=== PATIENT | female | born 1990 | race Caucasian/White ===

== ENCOUNTER 2016-09-20 01:12 | Emergency (ER) | payer OTHER ==
[2016-09-20 01:20] VITALS: BP 97/64; PULSE 71; RESP 18; TEMP 97.7
[2016-09-20] MEDS ORDERED: Acetaminophen-Codeine 300-30mg TAB PO STA (02:10)
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
[2016-09-20] MEDS ORDERED: HYDROcodone/APAP 5-325MG 1 EACH TAB PO STA (02:53)
== END 2016-09-20 03:01 | disposition home or self-care (01) ==
LOC: EC 01:12
DX: S62.102A Fracture of unspecified carpal bone, left wrist, initial encounter for closed fracture (principal); F17.200 Nicotine dependence, unspecified, uncomplicated; Z88.0 Allergy status to penicillin; Z88.8 Allergy status to other drugs, medicaments and biological substances; Z91.048 Other nonmedicinal substance allergy status; Y04.0XXA Assault by unarmed brawl or fight, initial encounter; Y92.009 Unspecified place in unspecified non-institutional (private) residence as the place of occurrence of the external cause
CPT/HCPCS: 99283

== ENCOUNTER 2016-10-14 22:10 | Emergency (ER) | payer OTHER ==
[2016-10-14 22:22] VITALS: TEMP 96.9
[2016-10-14] MEDS ORDERED: ALBUTEROL NEBULIZED 2.5 MG/3 ML INHALATION STA (22:47)
[2016-10-14] MEDS ORDERED: predniSONE 20 MG TAB PO STA (22:47)
[2016-10-14 23:41] VITALS: RESP 18
--- NOTE | 2016-10-15 00:03 | ED ---
Allergic Reaction HPI - General Chief complaint: Allergic Reaction Stated complaint: Allergic Reaction-Beesting Time Seen by Provider: 10/14/16 22:17 Source: EMS Mode of arrival: EMS - History of Present Illness Initial Comments: This patient is a 26-year-old woman who is brought to the emergency department by EMS after she was stung by a bee to the second toe. The patient states she has had previous reactions to bee stings. The patient states that after the sting she developed a feeling of chest tightness and some wheezing. EMS did give albuterol and Benadryl and the patient is feeling a bit better. Patient denies rash. She does state that her last tetanus shot is less than 10 years ago. MD Complaint: other Onset/Timin -: hour(s) Exposure: insect bite Severity: moderate Treatment Prior to Arrival: benadryl, bronchodilator - Related Data Previous Rx's Medication Instructions Recorded Famotidine [Pepcid] 20 mg PO DAILY #14 tablet 10/15/16 predniSONE 60 mg PO DAILY #30 tab 10/15/16 Allergies Allergy/AdvReac Type Severity Reaction Status Date / Time asparaginase Allergy Rash/Hives Verified 10/14/16 22:23 bee venom protein (honey bee) Allergy Unknown Verified 10/14/16 22:23 Coconut Allergy Anaphylaxis Verified 10/14/16 22:23 meperidine HCl [From Demerol] Allergy Anaphylaxis Verified 10/14/16 22:23 Penicillins Allergy Swelling Verified 10/14/16 22:23 Review of Systems ROS Statement: Those systems with pertinent positive or pertinent negative responses have been documented in the HPI. ROS Other: All systems not noted in ROS Statement are negative. Constitutional: Denies: fever, chills ENT: Denies: throat pain, congestion Respiratory: Reports: cough, dyspnea, wheezes Cardiovascular: Denies: chest pain, edema, syncope Gastrointestinal: Denies: abdominal pain, vomiting Skin: Denies: rash Neurological: Denies: headache, weakness, numbness, paresthesias Past Medical History Past Medical History: Cancer, Deep Vein Thrombosis (DVT), Seizure Disorder Additional Past Medical History / Comment(s): Leukemia, bone marrow biopsies History of Any Multi-Drug Resistant Organisms: None Reported Past Surgical History: No Surgical Hx Reported Additional Past Surgical History / Comment(s): port placement x2 2006, 2008 Past Anesthesia/Blood Transfusion Reactions: No Reported Reaction Past Psychological History: No Psychological Hx Reported Smoking Status: Current every day smoker Past Alcohol Use History: None Reported Past Drug Use History: None Reported - Past Family History Mother Family Medical History: No Reported History General Exam General appearance: alert, in no apparent distress Head exam: Present: atraumatic, normocephalic Eye exam: Present: normal appearance. Absent: scleral icterus, conjunctival injection ENT exam: Present: normal oropharynx, mucous membranes moist Respiratory exam: Present: wheezes. Absent: respiratory distress, rales, rhonchi, stridor, accessory muscle use, decreased breath sounds, prolonged expiratory Cardiovascular Exam: Present: regular rate, normal rhythm, normal heart sounds. Absent: systolic murmur, diastolic murmur, rubs, gallop GI/Abdominal exam: Present: soft. Absent: tenderness, guarding, rebound Extremities exam: Absent: pedal edema Neurological exam: Present: alert Skin exam: Present: warm, dry, intact, normal color, other (Small puncture wound to the second toe with some surrounding erythema. There is no retained foreign body.). Absent: rash Course Vital Signs 10/14/16 10/14/16 10/14/16 22:14 22:21 23:05 Temperature 96.9 F L Pulse Rate 90 84 Respiratory 20 Rate Blood Pressure 99/57 O2 Sat by Pulse 95 Oximetry 10/14/16 10/14/16 10/15/16 23:10 23:40 01:00 Temperature Pulse Rate 88 78 76 Respiratory 18 18 Rate Blood Pressure 99/58 95/54 O2 Sat by Pulse 98 98 Oximetry 10/15/16 01:40 Temperature 96.9 F L Pulse Rate 76 Respiratory 18 Rate Blood Pressure 95/54 O2 Sat by Pulse 98 Oximetry Disposition Clinical Impression: Bee sting Disposition: HOME SELF-CARE Condition: Good Instructions: Insect Bite or Sting (ED) Prescriptions: Famotidine [Pepcid] 20 mg PO DAILY #14 tablet predniSONE 60 mg PO DAILY #30 tab Referrals: Isabella Garrett III, MD [Primary Care Provider] - 1-2 days
[2016-10-15 01:08] VITALS: BP 95/54; PULSE 76
== END 2016-10-15 01:20 | disposition home or self-care (01) ==
LOC: EC 22:10
DX: T63.441A Toxic effect of venom of bees, accidental (unintentional), initial encounter (principal); R06.00 Dyspnea, unspecified; R07.9 Chest pain, unspecified; F17.200 Nicotine dependence, unspecified, uncomplicated; Z85.6 Personal history of leukemia; Z86.718 Personal history of other venous thrombosis and embolism; Z88.0 Allergy status to penicillin; Z88.5 Allergy status to narcotic agent; Z88.8 Allergy status to other drugs, medicaments and biological substances; Z91.018 Allergy to other foods; Z91.030 Bee allergy status
CPT/HCPCS: 94640; 99285; J7512

== ENCOUNTER 2017-02-01 13:56 | Emergency (ER) | payer OTHER ==
[2017-02-01] MEDS ORDERED: IPRATROPIUM-ALBUTEROL 3 ML NEB INHALATION STA (15:58)
--- NOTE | 2017-02-01 16:05 | ED ---
General Adult HPI - General Chief complaint: Upper Respiratory Infection Stated complaint: vomiting/SOB Time Seen by Provider: 02/01/17 15:47 Source: patient, RN notes reviewed, old records reviewed Mode of arrival: ambulatory Limitations: no limitations - History of Present Illness Initial comments: Chief complaint and history of present illness is a 18-year-old female reportedly had a leave work last night because of coughing and not feeling well. - Related Data Previous Rx's Medication Instructions Recorded Albuterol Inhaler [Ventolin Hfa 2 puff INHALATION Q4HR PRN #1 02/01/17 Inhaler] inhaler Azithromycin [Zithromax Z-pack] 250 mg PO DIRECTED #6 tab 02/01/17 Ondansetron Odt [Zofran ODT] 4 mg PO Q8HR PRN #5 tab 02/01/17 Allergies Allergy/AdvReac Type Severity Reaction Status Date / Time asparaginase Allergy Rash/Hives Verified 02/01/17 16:17 bee venom protein (honey bee) Allergy Unknown Verified 02/01/17 14:58 Coconut Allergy Anaphylaxis Verified 02/01/17 14:58 meperidine HCl [From Demerol] Allergy Anaphylaxis Verified 02/01/17 16:17 Penicillins Allergy Swelling Verified 02/01/17 16:17 Review of Systems ROS Statement: Those systems with pertinent positive or pertinent negative responses have been documented in the HPI. Review of systems. Patient denies any headache or visual acuity changes no chest pain she does a productive sounding cough and wheezing. No GI/ problems. The patient is having some easy bruising. Denies fever. All systems are reviewed. Past medical problems asthma, leukemia which was treated when she was 1 years old and 15 years old. Also history of DVT she is not on blood thinners does time. She has a history of seizure disorder caused by stress. She is not on any medications for that either she reports last seizure she had a 6 years ago. Surgeries she had 2 reports for chemotherapy. Bone biopsies. Family history grandfather had hep C and of liver cancer. Patient has ALLERGIES to aspirin Dary Russell, B Dayana, coconut, Demerol and penicillin. Patient's smoker strongly encouraged to stop denies alcohol use ROS Other: All systems not noted in ROS Statement are negative. Past Medical History Past Medical History: Asthma, Cancer, Deep Vein Thrombosis (DVT), Seizure Disorder Additional Past Medical History / Comment(s): Leukemia, bone marrow biopsies History of Any Multi-Drug Resistant Organisms: None Reported Past Surgical History: No Surgical Hx Reported Additional Past Surgical History / Comment(s): port placement x2 2006, 2008 Past Anesthesia/Blood Transfusion Reactions: No Reported Reaction Past Psychological History: No Psychological Hx Reported Smoking Status: Current every day smoker Past Alcohol Use History: None Reported Past Drug Use History: None Reported - Past Family History Mother Family Medical History: No Reported History General Exam - General Exam Comments Initial Comments: General: The patient is awake and alert, came because of a productive cough. Wheezing. Vital signs temperatures 98.9, pulse 60 ,respiratory rate 20, pulse ox 99 blood pressure 103/55 Eye: Pupils are equal, round and reactive to light, extra-ocular movements are intact ; there is normal conjunctiva bilaterally. No signs of icterus. Left eye shows some exophthalmos which patient reports is normal for her. Ears, nose, mouth and throat: There are moist mucous membranes and no oral lesions. Neck: The neck is supple, there is no tenderness on anterior cervical lymphadenopathy. Cardiovascular: There is a regular rate and rhythm. No murmur, rub or gallop is appreciated. Respiratory: Partial breath sounds with expiratory wheeze. Gastrointestinal: No abdominal pain, no nausea no vomiting no diarrhea Back: No back pain. Musculoskeletal: Normal ROM, no tenderness, There is no pedal edema. There is no calf tenderness or swelling. Sensation intact. Neurological: CN II-XII intact, There are no obvious motor or sensory deficits. Coordination appears grossly intact. Speech is normal. Skin: She does have some bruising. Patient states she's bruising more than normal. She is requesting a CBC to make sure her leukemia has not returned. Limitations: no limitations Course Vital Signs 02/01/17 02/01/17 02/01/17 14:56 16:38 16:46 Temperature 98.9 F Pulse Rate 60 68 56 L Respiratory 20 20 Rate Blood Pressure 103/55 101/55 O2 Sat by Pulse 99 100 Oximetry Medical Decision Making - Medical Decision Making Medical decision making; The patient's white count 7.2 hemoglobin 12 hematocrit 36 platelets 243. Normal differential. X-ray the chest is done AP and lateral view and reviewed by radiologist his impression is bilateral vague upper lung field opacities are noted which are new since the previous study. This could be pneumonia or atelectasis. There is no pneumothorax or pleural effusion. Cardiac silhouette is within normal limits. Impression vague bilateral upper lung field opacities are noted which are felt to be due to atelectasis or pneumonia. As read by Dr. Benny Phipps responded to the DuoNeb. Feeling slightly better. We discussed a Z-Bj for possible pneumonia, Zofran for nausea and a refill of her albuterol inhaler. Patient will be off work and to return tomorrow night if she feels up to it otherwise follow-up with family physician. - Lab Data Result diagrams: 02/01/17 16:30 Lab Results 02/01/17 Range/Units 16:30 WBC 7.2 (3.8-10.6) k/uL RBC 4.07 (3.80-5.40) m/uL Hgb 12.3 (11.4-16.0) gm/dL Hct 36.5 (34.0-46.0) % MCV 89.6 (80.0-100.0) fL MCH 30.3 (25.0-35.0) pg MCHC 33.8 (31.0-37.0) g/dL RDW 14.3 (11.5-15.5) % Plt Count 243 (150-450) k/uL Neutrophils % 67 % Lymphocytes % 25 % Monocytes % 4 % Eosinophils % 2 % Basophils % 1 % Neutrophils # 4.8 (1.3-7.7) k/uL Lymphocytes # 1.8 (1.0-4.8) k/uL Monocytes # 0.3 (0-1.0) k/uL Eosinophils # 0.1 (0-0.7) k/uL Basophils # 0.1 (0-0.2) k/uL Disposition Clinical Impression: Pneumonia Disposition: HOME SELF-CARE Condition: Stable Instructions: Community Acquired Pneumonia (ED) Additional Instructions: Increase fluids. Take Z-Bj until completed. Follow-up with family physician or return emergency room not feeling well. Use Zofran for nausea and albuterol inhaler as directed. Prescriptions: Albuterol Inhaler [Ventolin Hfa Inhaler] 2 puff INHALATION Q4HR PRN #1 inhaler PRN Reason: Shortness Of Breath Azithromycin [Zithromax Z-pack] 250 mg PO DIRECTED #6 tab Ondansetron Odt [Zofran ODT] 4 mg PO Q8HR PRN #5 tab PRN Reason: Nausea Referrals: Isabella Garrett III, MD [Primary Care Provider] - 1-2 days Time of Disposition: 16:59
--- NOTE | 2017-02-01 16:23 | XR ---
EXAMINATION TYPE: XR chest 2V DATE OF EXAM: 02/01/2017 COMPARISON: October 11, 2014 HISTORY: Cough TECHNIQUE: Frontal and lateral views of the chest are obtained. FINDINGS: Bilateral vague upper lung field opacities are noted which are new since the previous stud y. This could be pneumonia or atelectasis. There is no pneumothorax or pleural effusion and the cardi ac silhouette is within normal limits. IMPRESSION: Vague bilateral upper lung field opacities are noted which are felt to be due to atelect asis or pneumonia.
[2017-02-01 16:46] LABS: Basophils # (A) 0.1 k/uL (0-0.2); Basophils % (A) 1 %; CH 29.7; CHCM 33.3; Eosinophils # (A) 0.1 k/uL (0-0.7); Eosinophils % (A) 2 %; HCT 36.5 % (34.0-46.0); HDW 2.61; HGB 12.3 gm/dL (11.4-16.0); Luc # (Auto) 0.13; Luc % (Auto) 2; Lymphocytes # (A) 1.8 k/uL (1.0-4.8); Lymphocytes % (A) 25 %; MCH 30.3 pg (25.0-35.0); MCHC 33.8 g/dL (31.0-37.0); MCV 89.6 fL (80.0-100.0); Monocytes # (A) 0.3 k/uL (0-1.0); Monocytes % (A) 4 %; Neutrophils # (A) 4.8 k/uL (1.3-7.7); Neutrophils % (A) 67 %; RBC 4.07 m/uL (3.80-5.40); RDW 14.3 % (11.5-15.5); WBC 7.2 k/uL (3.8-10.6); WBC (Perox) 7.13
[2017-02-01 17:10] VITALS: BP 108/59; PULSE 54; RESP 16
[2017-02-01 17:13] VITALS: TEMP 97.9
== END 2017-02-01 17:13 | disposition home or self-care (01) ==
LOC: EC 13:56
DX: J18.9 Pneumonia, unspecified organism (principal); F17.200 Nicotine dependence, unspecified, uncomplicated; Z85.9 Personal history of malignant neoplasm, unspecified; Z91.018 Allergy to other foods; Z91.030 Bee allergy status; Z88.5 Allergy status to narcotic agent; Z88.0 Allergy status to penicillin; Z88.8 Allergy status to other drugs, medicaments and biological substances
CPT/HCPCS: 36415; 71020; 85025; 94640; 99284

== ENCOUNTER 2017-02-18 14:46 | Emergency (ER) | payer OTHER ==
[2017-02-18 14:56] VITALS: BP 107/59; RESP 20; TEMP 98.4
[2017-02-18] MEDS ORDERED: ALBUTEROL NEBULIZED 2.5 MG/3 ML INHALATION STA (15:26)
[2017-02-18] MEDS ORDERED: IPRATROPIUM-ALBUTEROL 3 ML NEB INHALATION STA (15:26)
--- NOTE | 2017-02-18 15:35 | ED ---
General Adult HPI - General Chief complaint: Recheck/Abnormal Lab/Rx Stated complaint: SOB Time Seen by Provider: 02/18/17 15:04 Source: patient Mode of arrival: ambulatory Limitations: no limitations - History of Present Illness Initial comments: Patient is a 26-year-old female with a history of asthma who presents with chief complaint cough and shortness of breath. Patient states that she was seen at [facility] last Thursday and diagnosed with pneumonia. At that time she was prescribed steroids and amoxicillin which she did not fill until yesterday. Patient states that she was seen again on Thursday his symptoms were not improving at that time she had an x-ray done which did not show any focal consolidations. 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 States that she has a rescue inhaler that she uses occasionally. Patient denies any sick contacts, she cannot identify an inciting incident. She does not identify any aggravating or alleviating factors. She admits to sputum production which she characterizes as green. - Related Data Home Medications Medication Instructions Recorded Confirmed Azithromycin [Zithromax Z-pack] See Taper PO DIRECTED 02/18/17 02/18/17 predniSONE See Taper PO DIRECTED 02/18/17 02/18/17 Allergies Allergy/AdvReac Type Severity Reaction Status Date / Time asparaginase Allergy Rash/Hives Verified 02/18/17 15:34 bee venom protein (honey bee) Allergy Unknown Verified 02/18/17 15:34 Coconut Allergy Anaphylaxis Verified 02/18/17 15:34 meperidine HCl [From Demerol] Allergy Anaphylaxis Verified 02/18/17 15:34 Penicillins Allergy Swelling Verified 02/18/17 15:34 Review of Systems ROS Statement: Those systems with pertinent positive or pertinent negative responses have been documented in the HPI. ROS Other: All systems not noted in ROS Statement are negative. Constitutional: Reports: fever Eyes: Denies: vision change ENT: Reports: congestion. Denies: throat pain Respiratory: Reports: cough, wheezes Cardiovascular: Denies: chest pain Endocrine: Denies: fatigue Gastrointestinal: Denies: abdominal pain, nausea, vomiting Genitourinary: Denies: dysuria Musculoskeletal: Denies: back pain Skin: Denies: rash, lesions Neurological: Denies: headache Past Medical History Past Medical History: Asthma, Cancer, Deep Vein Thrombosis (DVT), Seizure Disorder Additional Past Medical History / Comment(s): Leukemia, bone marrow biopsies History of Any Multi-Drug Resistant Organisms: None Reported Past Surgical History: No Surgical Hx Reported Additional Past Surgical History / Comment(s): port placement x2 2006, 2008 Past Anesthesia/Blood Transfusion Reactions: No Reported Reaction Past Psychological History: No Psychological Hx Reported Smoking Status: Current every day smoker Past Alcohol Use History: None Reported Past Drug Use History: None Reported - Past Family History Mother Family Medical History: No Reported History General Exam Limitations: no limitations General appearance: alert, in no apparent distress Head exam: Present: atraumatic, normocephalic Eye exam: Present: normal appearance ENT exam: Present: mucous membranes moist Neck exam: Present: normal inspection Respiratory exam: Present: wheezes Cardiovascular Exam: Present: regular rate, normal rhythm, normal heart sounds GI/Abdominal exam: Present: soft. Absent: distended, tenderness, guarding Rectal exam: Present: deferred Neurological exam: Present: alert, oriented X3 Psychiatric exam: Present: normal affect, normal mood Skin exam: Present: warm, dry, intact Course Vital Signs 02/18/17 02/18/17 02/18/17 14:53 15:37 15:40 Temperature 98.4 F Pulse Rate 80 78 Respiratory 20 20 Rate Blood Pressure 107/59 O2 Sat by Pulse 98 Oximetry 02/18/17 16:01 Temperature Pulse Rate 82 Respiratory Rate Blood Pressure O2 Sat by Pulse Oximetry Medical Decision Making - Medical Decision Making Patient is a 26-year-old female with a history of asthma who presents with a chief complaint of cough and shortness of breath. He has been seen twice in the last week for the same issue. One week ago she was prescribed antibiotics but did not fill them until 2 days ago. Patient continues to smoke. On initial evaluation, vital signs are stable, patient is in no acute distress. Patient will get 2 breathing treatments in the emergency department, she is currently on antibiotics and steroids. 4:07 PM She was given breathing treatments in the emergency department. Reevaluation, patient states that she is breathing much easier. Reexamination of the lungs shows improved air entry and exit. There are some minor wheezes present. Patient was instructed to continue taking antibiotics, and steroids until completed. Patient was offered a repeat x-ray however she declined at this time. Patient relates to be discharged because she is feeling better and states that she only gets 2 hours of visitation with her children every week and she is already relates. At this time, patient is deemed stable for discharge. She is instructed to follow up with primary care, or return to the emergency department if her symptoms worsen or change in anyway. Disposition Clinical Impression: Asthmatic bronchitis, Encounter for smoking cessation counseling Disposition: HOME SELF-CARE Condition: Good Instructions: Bronchospasm (ED), How to Stop Smoking (ED) Referrals: Isabella Garrett III, MD [Primary Care Provider] - 1-2 days
[2017-02-18 16:02] VITALS: PULSE 82
== END 2017-02-18 16:15 | disposition home or self-care (01) ==
LOC: EC 14:46
DX: J45.909 Unspecified asthma, uncomplicated (principal); F17.200 Nicotine dependence, unspecified, uncomplicated; Z85.6 Personal history of leukemia; Z79.52 Long term (current) use of systemic steroids; Z88.0 Allergy status to penicillin; Z91.030 Bee allergy status; Z91.018 Allergy to other foods; Z88.8 Allergy status to other drugs, medicaments and biological substances
CPT/HCPCS: 94640; 99284

== ENCOUNTER → 2017-03-26 | Outpatient (CLI) | payer OTHER ==
--- NOTE | 2017-03-26 14:52 | CT ---
EXAMINATION TYPE: CT cervical spine wo con DATE OF EXAM: 03/26/2017 COMPARISON: Chest x-ray 02/01/2017 HISTORY: 26-year-old female NECK PAIN WITH HAND NUMBNESS AFTER INJURY. TECHNIQUE: Contiguous axial scanning of the cervical spine without IV contrast. Coronal and sagittal reconstructions performed. CT DLP: 343 mGycm Automated exposure control for dose reduction was used. FINDINGS: The patchy areas in the visualized upper lungs probably represent areas of atelectasis. Chest x-ray c an be performed if there are any respiratory symptoms. Moderate mucosal thickening throughout the right maxillary sinus and [id number] on the left. Ne ar complete opacification within the visualized sphenoid sinuses. No craniocervical junction anomaly, predental space widening, or prevertebral soft tissue swelling. Reversal of normal cervical lordosis with preserved alignment. No focal disc herniation is seen. No spinal canal or neuroforaminal stenosis. IMPRESSION: 1. PATCHY OPACITIES IN THE VISUALIZED UPPER LUNGS. REVIEW OF THE PATIENT'S 02/01/2017 RADIOGRAPHS SHOW S OPACITIES HERE. CORRELATE FOR ANY KNOWN DIAGNOSIS. 2. REVERSAL OF THE NORMAL CERVICAL LORDOSIS COULD BE POSITIONAL OR DUE TO MUSCLE SPASM. NO ACUTE FRAC TURE OR MALALIGNMENT. NO SIGNIFICANT SPINAL CANAL OR NEUROFORAMINAL STENOSIS SEEN
== END | disposition home or self-care (01) ==
LOC: RADCTMAIN 14:20
PROVIDERS: ATTEND Emergency Medicine
DX: M40.50 Lordosis, unspecified, site unspecified (principal); S13.4XXA Sprain of ligaments of cervical spine, initial encounter; R20.9 Unspecified disturbances of skin sensation
CPT/HCPCS: 72125

== ENCOUNTER 2017-04-09 18:46 | Emergency (ER) | payer OTHER ==
[2017-04-09] MEDS ORDERED: DEXAMETHASONE 4 MG TAB PO STA (19:32)
[2017-04-09] MEDS ORDERED: IPRATROPIUM-ALBUTEROL 3 ML NEB INHALATION STA (19:32)
--- NOTE | 2017-04-09 20:04 | XR ---
EXAMINATION TYPE: XR chest 2V DATE OF EXAM: 04/09/2017 COMPARISON: 02/01/2017 HISTORY: Difficulty breathing TECHNIQUE: Frontal and lateral views of the chest are obtained. FINDINGS: There is mild coarse interstitial density in the mid and upper lung saavedra. There is no he art failure. Heart size is normal. There is no pleural effusion. IMPRESSION: Interstitial densities in the upper lobes consistent with fibrosis that is unchanged com pared to last exam. Normal heart. No acute lung disease. There is probably some mild adenopathy at th e aortopulmonary window that is unchanged.
--- NOTE | 2017-04-09 20:06 | ED ---
SOB HPI - General Chief Complaint: Shortness of Breath Stated Complaint: BUDDY Time Seen by Provider: 04/09/17 19:11 Source: patient Mode of arrival: wheelchair Limitations: no limitations - History of Present Illness Initial Comments: 26-year-old female presented for evaluation of fevers chills shortness breath and productive cough for the last couple months. She states that she has been seen at this facility and an outside hospital multiple times and diagnosed with pneumonia with prescriptions for steroids, nebulizers, and antibiotics provided. She states over the course of this time she has been having waxing and waning symptoms however they have currently been worsening. She states the cough is her primary complaint and is productive of yellowish sputum. She finished a course of antibiotics couple weeks ago and she states her last steroids were quite some time ago however she is unable to specify when. She denies any chest pain lower extremity swelling, erythema, or pain. No hemoptysis noted and she denies any recent procedures or surgeries. She further denies oral contraceptives or past medical history of DVTs. - Related Data Home Medications Medication Instructions Recorded Confirmed Albuterol Nebulized [Ventolin 2.5 mg INHALATION RT-QID PRN 04/09/17 04/09/17 Nebulized] Flovent Unknown Dose 2 puff INHALATION RT-QID PRN 04/09/17 04/09/17 Previous Rx's Medication Instructions Recorded predniSONE 50 mg PO DAILY #5 tablet 04/09/17 Allergies Allergy/AdvReac Type Severity Reaction Status Date / Time asparaginase Allergy Rash/Hives Verified 04/09/17 19:20 bee venom protein (honey bee) Allergy Unknown Verified 04/09/17 19:20 Coconut Allergy Anaphylaxis Verified 04/09/17 19:20 meperidine HCl [From Demerol] Allergy Anaphylaxis Verified 04/09/17 19:20 Penicillins Allergy Swelling Verified 04/09/17 19:20 Review of Systems ROS Statement: Those systems with pertinent positive or pertinent negative responses have been documented in the HPI. ROS Other: All systems not noted in ROS Statement are negative. Constitutional: Reports: fever, chills. Denies: weakness, weight change, night sweats Eyes: Denies: eye pain, vision change ENT: Denies: ear pain, throat pain Respiratory: Reports: cough, dyspnea, wheezes. Denies: hemoptysis, stridor Cardiovascular: Denies: chest pain, dyspnea on exertion, orthopnea Endocrine: Denies: as per HPI Gastrointestinal: Denies: abdominal pain, nausea, vomiting, diarrhea, constipation Genitourinary: Denies: urgency, dysuria Musculoskeletal: Reports: myalgia. Denies: back pain, arthralgia Skin: Denies: rash, lesions Neurological: Denies: headache, weakness Psychiatric: Denies: anxiety, depression Hematological/Lymphatic: Denies: easy bleeding, easy bruising Past Medical History Past Medical History: Asthma, Cancer, Deep Vein Thrombosis (DVT), Seizure Disorder Additional Past Medical History / Comment(s): Leukemia, bone marrow biopsies History of Any Multi-Drug Resistant Organisms: None Reported Past Surgical History: No Surgical Hx Reported Additional Past Surgical History / Comment(s): port placement x2 2006, 2008 Past Anesthesia/Blood Transfusion Reactions: No Reported Reaction Past Psychological History: Anxiety Smoking Status: Current every day smoker Past Alcohol Use History: Occasional Past Drug Use History: None Reported - Past Family History Mother Family Medical History: No Reported History General Exam Limitations: no limitations General appearance: alert, in no apparent distress Head exam: Present: atraumatic, normocephalic, normal inspection Eye exam: Present: normal appearance, PERRL, EOMI. Absent: scleral icterus, conjunctival injection, periorbital swelling ENT exam: Present: normal exam, mucous membranes moist Neck exam: Present: normal inspection. Absent: tenderness, meningismus, lymphadenopathy Respiratory exam: Present: wheezes. Absent: respiratory distress, rales, rhonchi, stridor, accessory muscle use, decreased breath sounds, prolonged expiratory Cardiovascular Exam: Present: normal rhythm, tachycardia GI/Abdominal exam: Present: soft, normal bowel sounds. Absent: distended, tenderness, guarding, rebound, rigid Rectal exam: Present: deferred Extremities exam: Present: normal inspection, full ROM, normal capillary refill. Absent: tenderness, pedal edema, joint swelling, calf tenderness Back exam: Present: normal inspection Neurological exam: Present: alert, oriented X3, CN II-XII intact Psychiatric exam: Present: normal affect, normal mood Skin exam: Present: warm, dry, intact, normal color. Absent: rash Course Vital Signs 04/09/17 04/09/17 04/09/17 19:05 20:06 20:34 Temperature 98.3 F Pulse Rate 102 H 100 100 Respiratory 16 Rate Blood Pressure 101/61 O2 Sat by Pulse 99 Oximetry Medical Decision Making - Medical Decision Making 26-year-old female presenting for evaluation ofURI symptoms concerning for pneumonia. On physical examination she does have mild wheezing bilaterally however the remainder of her exam is benign. EKG shows normal sinus rhythm with a ventricular rate of 96 and a prolonged QT. Patient is negative for perc criteria. discussed workup with patient which would include breathing treatments, steroids, chest x-ray, and labs. The patient states that at this time she does not want have an IV placed or to have blood drawn. Chest x-ray showed no acute process and influenza swab was negative. Patient was reevaluated after receiving steroids and breathing treatments and had a solution of wheezing. She was informed of results and through shared decision making it was determined that should be discharged with prednisone 5 days and instructions to follow-up with her primary care physician. She was further given return instructions for the weekend. The patient acknowledged an understanding of all information provided and agreed with this plan of care. - Lab Data Lab Results 04/09/17 Range/Units 19:50 Influenza Type A RNA Not Detected (Not Detectd) Influenza Type B (PCR) Not Detected (Not Detectd) 04/09/17 20:34 number sinus rhythm with a ventricular rate of 96, SCOTT 142, QRS 88, QT/QTC 382/ 482. Disposition Clinical Impression: URI (upper respiratory infection) Disposition: HOME SELF-CARE Condition: Stable Instructions: Acute Bronchitis (ED) Additional Instructions: Please use medication as discussed. Please follow up with family doctor if symptoms have not improved over the next two days. Please return to the emergency room if your symptoms increase or worsen or for any other concerns. Prescriptions: predniSONE 50 mg PO DAILY #5 tablet Referrals: Isabella Garrett III, MD [Primary Care Provider] - 1-2 days Time of Disposition: 20:39
[2017-04-09] MEDS ORDERED: KETOROLAC 60 MG/2 ML VIAL IM STA (20:26)
[2017-04-09] MEDS ORDERED: HYDROcodone/APAP 10-325MG 1 EACH TAB PO ONE (20:26)
[2017-04-09 21:19] VITALS: BP 110/71; PULSE 95; RESP 20; TEMP 98.1
== END 2017-04-09 21:19 | disposition home or self-care (01) ==
LOC: EC 18:46
DX: J06.9 Acute upper respiratory infection, unspecified (principal); R06.02 Shortness of breath; F17.200 Nicotine dependence, unspecified, uncomplicated; Z85.6 Personal history of leukemia; Z88.0 Allergy status to penicillin; Z91.018 Allergy to other foods; Z91.030 Bee allergy status; Z91.048 Other nonmedicinal substance allergy status
CPT/HCPCS: 94640; 93005; 87502; 71020; 99285; J8540

== ENCOUNTER 2017-04-16 18:27 | Emergency (ER) | payer OTHER ==
[2017-04-16 18:37] VITALS: BP 109/59; PULSE 100; RESP 20; TEMP 99.5
[2017-04-16] MEDS ORDERED: ALBUTEROL NEBULIZED 2.5 MG/3 ML INHALATION STA (19:02)
--- NOTE | 2017-04-16 19:06 | ED ---
General Adult HPI - General Chief complaint: ENT Stated complaint: FEVER AND COUGH Time Seen by Provider: 04/16/17 18:48 Source: patient, RN notes reviewed Mode of arrival: ambulatory Limitations: no limitations - History of Present Illness Initial comments: This is a 18-year-old female who presents to the emergency department with chief complaint of sore throat and fever. Patient states that she has been having left-sided throat pain and fevers for the past 2 days. She's been treating her fevers with Motrin and Tylenol. Patient states she was seen here 7 days ago for cough and received a chest x-ray and was negative for pneumonia. She was prescribed steroids and has been doing at home nebulizer treatments. She did not do a nebulizer treatment today. Patient states that since her last encounter in the emergency department her cough has improved. She is concerned about the fever and sore throat and requests to be swabbed for strep. Denies chills, ear pain, congestion, chest pain, shortness of breath, abdominal pain, nausea or vomiting, constipation or diarrhea, dysuria or hematuria, numbness or tingling, headache or vision changes. - Related Data Home Medications Medication Instructions Recorded Confirmed No Known Home Medications [No 04/16/17 04/16/17 Known Home Medications] Allergies Allergy/AdvReac Type Severity Reaction Status Date / Time asparaginase Allergy Rash/Hives Verified 04/16/17 18:37 bee venom protein (honey bee) Allergy Unknown Verified 04/16/17 18:37 Coconut Allergy Anaphylaxis Verified 04/16/17 18:37 meperidine HCl [From Demerol] Allergy Anaphylaxis Verified 04/16/17 18:37 Penicillins Allergy Swelling Verified 04/16/17 18:37 Review of Systems ROS Statement: Those systems with pertinent positive or pertinent negative responses have been documented in the HPI. ROS Other: All systems not noted in ROS Statement are negative. Past Medical History Past Medical History: Asthma, Cancer, Deep Vein Thrombosis (DVT), Seizure Disorder Additional Past Medical History / Comment(s): Leukemia, bone marrow biopsies History of Any Multi-Drug Resistant Organisms: None Reported Past Surgical History: No Surgical Hx Reported Additional Past Surgical History / Comment(s): port placement x2 2006, 2008 Past Anesthesia/Blood Transfusion Reactions: No Reported Reaction Past Psychological History: Anxiety Smoking Status: Current every day smoker Past Alcohol Use History: None Reported Past Drug Use History: None Reported - Past Family History Mother Family Medical History: No Reported History General Exam - General Exam Comments Initial Comments: General: Awake and alert, well-developed; in no apparent distress. HEENT: Head atraumatic, normocephalic. Pupils are equal, round and reactive to light. Extraocular movements intact. Oropharynx moist with mild erythema. No tonsillar enlargement or exudates. Neck: Supple. Normal ROM. Cardiovascular: Regular rate and rhythm. No murmurs, rubs or gallops. Chest symmetrical. Respiratory: Normal respiratory effort with no use of accessory muscles. Diffuse rhonchi and expiratory wheezing throughout all lung saavedra. Musculoskeletal: Normal range of motion and no tenderness bilateral upper and lower extremities. Ambulating normally. Skin: Magazine, warm and dry without rashes or lesions. Neurological: Alert and oriented x3. CN II-XII grossly intact. Speech is fluent and answers are appropriate. No focal neuro deficits. Psychiatric: Normal mood and affect. No overt signs of depression or anxiety noted. Limitations: no limitations Course Vital Signs 04/16/17 04/16/17 18:35 19:20 Temperature 99.5 F Pulse Rate 100 100 Respiratory 20 Rate Blood Pressure 109/59 O2 Sat by Pulse 98 Oximetry Medical Decision Making - Medical Decision Making This is a 26-year-old female who presents to the emergency department with chief complaint of sore throat and fever. She requested to be swabbed for strep which she tested negative for. After declining a chest x-ray, patient was strongly advised to receive one as she is still experiencing a productive cough and is febrile. When told that she is negative for strep throat patient agreed to have a chest x-ray. Patient has diffuse rhonchi and expiratory wheezing throughout all lung saavedra. Received a nebulizer breathing treatment while in the emergency department. This x-ray revealed no acute abnormalities as compared to last exam. Patient will be discharged home. She is in agreement and voices understanding. All questions were answered. - Lab Data Lab Results 04/16/17 Range/Units 18:54 Group A Strep Rapid Negative (Negative) - Radiology Data Radiology results: report reviewed Chest x-ray findings: The heart and mediastinum are normal. There is mild reticular nodular density and pleural thickening at the lung apices. There are some retractions pulmonary dain. Bony thorax is intact. Impression: Bilateral upper lobe scarring. Normal heart. No change compared to old exam. This could relate to old granulomatous disease. There is also no change compared to 02/01/2017. Disposition Clinical Impression: Acute pharyngitis Disposition: HOME SELF-CARE Condition: Good Instructions: Pharyngitis (ED) Additional Instructions: Please follow up with primary care provider within 1-2 days. Return to emergency department if symptoms should worsen or any concerns arise. Referrals: Isabella Garrett III, MD [Primary Care Provider] - 1-2 days Time of Disposition: 20:38
--- NOTE | 2017-04-16 20:28 | XR ---
EXAMINATION TYPE: XR chest 2V DATE OF EXAM: 04/16/2017 COMPARISON: 04/09/2017 HISTORY: Cough TECHNIQUE: Frontal and lateral views of the chest are obtained. FINDINGS: Heart and mediastinum are normal. There is mild reticular nodular density and pleural thic kening at the lung apices. There is some retraction of the pulmonary dain. Bony thorax is intact. IMPRESSION: Bilateral upper lobe scarring. Normal heart. No change compared to old exam. This could relate to old granulomatous disease. There is also no change compared to 02/01/2017.
== END 2017-04-16 20:59 | disposition home or self-care (01) ==
LOC: EC 18:27
DX: J02.9 Acute pharyngitis, unspecified (principal); F17.200 Nicotine dependence, unspecified, uncomplicated; Z85.6 Personal history of leukemia; Z91.048 Other nonmedicinal substance allergy status; Z91.030 Bee allergy status; Z91.018 Allergy to other foods; Z88.5 Allergy status to narcotic agent; Z88.0 Allergy status to penicillin
CPT/HCPCS: 71020; 87081; 87430; 94640; 99284

== ENCOUNTER 2017-06-04 19:50 | Emergency (ER) | payer OTHER ==
[2017-06-04] MEDS ORDERED: SODIUM CHLORIDE 0.9% 500 ML IV STA (21:15)
--- NOTE | 2017-06-04 21:52 | ED ---
Seizure HPI - General Chief Complaint: Seizure Stated Complaint: Seizure/within hour Time Seen by Provider: 06/04/17 20:55 Source: patient, RN notes reviewed, old records reviewed Mode of arrival: wheelchair Limitations: no limitations - History of Present Illness Initial Comments: The patient is a 26-year-old female presents emergency room today chief complaint of 3 seizure-like episodes today. She reports she's had a history of seizures but has been off of her medications for many years. She reports that she has had no fever or chills. Patient first seizure was yesterday evening. She reports she was sent home from work for "acting out of it" and went home and had two witnessed seizures. She reports that she stated that she was previously on Lamictal. She reports that she deos not want to be admitted. She states that she has no pain at this time, denies any head injury or falls during seizure episodes. She reports that the lasted 2-3 minutes each. - Related Data Previous Rx's Medication Instructions Recorded Nitrofurantoin Monohyd/M-Cryst 100 mg PO Q12HR #14 cap 06/04/17 [Macrobid] lamoTRIgine [LaMICtal] 25 mg PO DAILY #14 tab 06/04/17 Allergies Allergy/AdvReac Type Severity Reaction Status Date / Time asparaginase Allergy Rash/Hives Verified 06/04/17 20:38 bee venom protein (honey bee) Allergy Unknown Verified 06/04/17 20:38 Coconut Allergy Anaphylaxis Verified 06/04/17 20:38 meperidine HCl [From Demerol] Allergy Anaphylaxis Verified 06/04/17 20:38 Penicillins Allergy Swelling Verified 06/04/17 20:38 Review of Systems ROS Statement: Those systems with pertinent positive or pertinent negative responses have been documented in the HPI. ROS Other: All systems not noted in ROS Statement are negative. Past Medical History Past Medical History: Asthma, Cancer, Deep Vein Thrombosis (DVT), Seizure Disorder Additional Past Medical History / Comment(s): Leukemia, bone marrow biopsies History of Any Multi-Drug Resistant Organisms: None Reported Past Surgical History: No Surgical Hx Reported Additional Past Surgical History / Comment(s): port placement x2 2006, 2008 Past Anesthesia/Blood Transfusion Reactions: No Reported Reaction Past Psychological History: Anxiety Smoking Status: Current every day smoker Past Alcohol Use History: None Reported Past Drug Use History: None Reported - Past Family History Mother Family Medical History: No Reported History General Exam - General Exam Comments Initial Comments: Well appearing 26 year old female, alert and oriented. Limitations: no limitations General appearance: alert, in no apparent distress Head exam: Present: atraumatic, normocephalic, normal inspection Eye exam: Present: normal appearance, PERRL, EOMI. Absent: scleral icterus, conjunctival injection, periorbital swelling ENT exam: Present: normal exam, mucous membranes moist Neck exam: Present: normal inspection. Absent: tenderness, meningismus, lymphadenopathy Respiratory exam: Present: normal lung sounds bilaterally. Absent: respiratory distress, wheezes, rales, rhonchi, stridor Cardiovascular Exam: Present: regular rate, normal rhythm, normal heart sounds. Absent: systolic murmur, diastolic murmur, rubs, gallop, clicks GI/Abdominal exam: Present: soft, normal bowel sounds. Absent: distended, tenderness, guarding, rebound, rigid Extremities exam: Present: normal inspection, full ROM, normal capillary refill. Absent: tenderness, pedal edema, joint swelling, calf tenderness Back exam: Present: normal inspection Neurological exam: Present: alert, oriented X3, CN II-XII intact Psychiatric exam: Present: normal affect, normal mood Course Vital Signs 06/04/17 06/04/17 06/04/17 20:08 22:26 22:44 Temperature 98.4 F Pulse Rate 75 59 L Pulse Rate [ 58 L Sitting Server Engineer] Pulse Rate [ 85 Standing Server Engineer ] Pulse Rate [ 56 L Supine Server Engineer] Respiratory 16 16 Rate Blood Pressure 94/50 99/55 Blood Pressure 100/65 [Left Arm Sitting] Blood Pressure 99/65 [Left Arm Standing] Blood Pressure 90/55 [Left Arm Supine] O2 Sat by Pulse 100 99 Oximetry 06/04/17 06/04/17 23:08 23:36 Temperature 97.0 F L Pulse Rate 65 58 L Pulse Rate [ Sitting Server Engineer] Pulse Rate [ Standing Server Engineer ] Pulse Rate [ Supine Server Engineer] Respiratory 18 18 Rate Blood Pressure 106/51 112/53 Blood Pressure [Left Arm Sitting] Blood Pressure [Left Arm Standing] Blood Pressure [Left Arm Supine] O2 Sat by Pulse 95 100 Oximetry Medical Decision Making - Medical Decision Making The patient is a 26-year-old female presents emergency room today chief complaint of 3 seizure-like episodes today. She reports she's had a history of seizures but has been off of her medications for many years. She reports that she has had no fever or chills. She reports she was sent home from work for "acting out of it" and went home and had two witnessed seizures. Patient has no focal or lateralizisng neurological deficits, and denies any pain at this time. Patient urinalysis is positive for infection with nitrites and many WBC. Patient CXR has bilateral upper pleural thickening, non specific. Patient CT brain is negative. Blood work was reviewed and negative at this time. Patient offered admission due to seizure activity and neuro consult. Patient refuses at this time. Discussed starting patient back on lamictal and treating UTI. Discussed strict return parameters and follow up with PCP and neuro. REturn parameters discussed. - Lab Data Result diagrams: 06/04/17 20:50 06/04/17 20:50 Lab Results 06/04/17 06/04/17 06/04/17 Range/Units 20:50 20:50 21:20 WBC 6.8 (3.8-10.6) k/uL RBC 4.39 (3.80-5.40) m/uL Hgb 12.1 (11.4-16.0) gm/dL Hct 38.4 (34.0-46.0) % MCV 87.6 (80.0-100.0) fL MCH 27.7 (25.0-35.0) pg MCHC 31.6 (31.0-37.0) g/dL RDW 15.5 (11.5-15.5) % Plt Count 264 (150-450) k/uL Neutrophils % 56 % Lymphocytes % 33 % Monocytes % 6 % Eosinophils % 3 % Basophils % 1 % Neutrophils # 3.8 (1.3-7.7) k/uL Lymphocytes # 2.2 (1.0-4.8) k/uL Monocytes # 0.4 (0-1.0) k/uL Eosinophils # 0.2 (0-0.7) k/uL Basophils # 0.0 (0-0.2) k/uL Sodium 141 (137-145) mmol/L Potassium 3.9 (3.5-5.1) mmol/L Chloride 103 (98-107) mmol/L Carbon Dioxide 27 (22-30) mmol/L Anion Gap 11 mmol/L BUN 18 H (7-17) mg/dL Creatinine 0.80 (0.52-1.04) mg/dL Est GFR (MDRD) Af Amer >60 (>60 ml/min/1.73 sqM) Est GFR (MDRD) Non-Af >60 (>60 ml/min/1.73 sqM) Glucose 83 (74-99) mg/dL Calcium 9.0 (8.4-10.2) mg/dL Total Bilirubin 0.2 (0.2-1.3) mg/dL AST 23 (14-36) U/L ALT 26 (9-52) U/L Alkaline Phosphatase 86 (38-126) U/L Total Protein 6.6 (6.3-8.2) g/dL Albumin 3.7 (3.5-5.0) g/dL Urine Color Yellow Urine Appearance Cloudy H (Clear) Urine pH 6.5 (5.0-8.0) Ur Specific [place] 1.009 (1.001-1.035) Urine Protein Negative (Negative) Urine Glucose (UA) Negative (Negative) Urine Ketones Negative (Negative) Urine Blood Negative (Negative) Urine Nitrite Positive H (Negative) Urine Bilirubin Negative (Negative) Urine Urobilinogen <2.0 (<2.0) mg/dL Ur Leukocyte Esterase Moderate H (Negative) Urine RBC 1 (0-5) /hpf Urine WBC 13 H (0-5) /hpf Ur Squamous Epith Cells 1 (0-4) /hpf Urine Bacteria Many H (None) /hpf Urine Mucus Rare H (None) /hpf Urine HCG, Qual (Not Detectd) Urine Opiates Screen Not Detected (NotDetected) Ur Oxycodone Screen Not Detected (NotDetected) Urine Methadone Screen Not Detected (NotDetected) Ur Propoxyphene Screen Not Detected (NotDetected) Ur Barbiturates Screen Not Detected (NotDetected) U Tricyclic Antidepress Not Detected (NotDetected) Ur Phencyclidine Scrn Not Detected (NotDetected) Ur Amphetamines Screen Not Detected (NotDetected) U Methamphetamines Scrn Not Detected (NotDetected) U Benzodiazepines Scrn Not Detected (NotDetected) Urine Cocaine Screen Not Detected (NotDetected) U Marijuana (THC) Screen Not Detected (NotDetected) 06/04/17 Range/Units 21:20 WBC (3.8-10.6) k/uL RBC (3.80-5.40) m/uL Hgb (11.4-16.0) gm/dL Hct (34.0-46.0) % MCV (80.0-100.0) fL MCH (25.0-35.0) pg MCHC (31.0-37.0) g/dL RDW (11.5-15.5) % Plt Count (150-450) k/uL Neutrophils % % Lymphocytes % % Monocytes % % Eosinophils % % Basophils % % Neutrophils # (1.3-7.7) k/uL Lymphocytes # (1.0-4.8) k/uL Monocytes # (0-1.0) k/uL Eosinophils # (0-0.7) k/uL Basophils # (0-0.2) k/uL Sodium (137-145) mmol/L Potassium (3.5-5.1) mmol/L Chloride (98-107) mmol/L Carbon Dioxide (22-30) mmol/L Anion Gap mmol/L BUN (7-17) mg/dL Creatinine (0.52-1.04) mg/dL Est GFR (MDRD) Af Amer (>60 ml/min/1.73 sqM) Est GFR (MDRD) Non-Af (>60 ml/min/1.73 sqM) Glucose (74-99) mg/dL Calcium (8.4-10.2) mg/dL Total Bilirubin (0.2-1.3) mg/dL AST (14-36) U/L ALT (9-52) U/L Alkaline Phosphatase (38-126) U/L Total Protein (6.3-8.2) g/dL Albumin (3.5-5.0) g/dL Urine Color Urine Appearance (Clear) Urine pH (5.0-8.0) Ur Specific [place] (1.001-1.035) Urine Protein (Negative) Urine Glucose (UA) (Negative) Urine Ketones (Negative) Urine Blood (Negative) Urine Nitrite (Negative) Urine Bilirubin (Negative) Urine Urobilinogen (<2.0) mg/dL Ur Leukocyte Esterase (Negative) Urine RBC (0-5) /hpf Urine WBC (0-5) /hpf Ur Squamous Epith Cells (0-4) /hpf Urine Bacteria (None) /hpf Urine Mucus (None) /hpf Urine HCG, Qual Not Detected (Not Detectd) Urine Opiates Screen (NotDetected) Ur Oxycodone Screen (NotDetected) Urine Methadone Screen (NotDetected) Ur Propoxyphene Screen (NotDetected) Ur Barbiturates Screen (NotDetected) U Tricyclic Antidepress (NotDetected) Ur Phencyclidine Scrn (NotDetected) Ur Amphetamines Screen (NotDetected) U Methamphetamines Scrn (NotDetected) U Benzodiazepines Scrn (NotDetected) Urine Cocaine Screen (NotDetected) U Marijuana (THC) Screen (NotDetected) 06/04/17 22:09 EKG shows sinus bradycardia with sinus arrhythmia. Ventricular rate of 45 beats were minute. SC interval 134 ms. QRS duration 92 ms. QT QTc is 46/420 ms. No evidence of ST elevation or T-wave inversion. - Radiology Data Radiology results: report reviewed CT of the brain is negative for any acute process. Chest x-ray was reviewed and shows bilateral upper lobe plural thickening. Nonspecific finding. Disposition Clinical Impression: Seizure, UTI (urinary tract infection) Disposition: HOME SELF-CARE Condition: Good Instructions: New-Onset Seizure in Adults (ED) Additional Instructions: Patient advised to follow-up promptly with primary care physician as well as neurology. Return if seizure recurs or any other abnormal symptoms. Patient should follow-up promptly with your primary care physician as well. Take the medication as prescribed. Prescriptions: lamoTRIgine [LaMICtal] 25 mg PO DAILY #14 tab Nitrofurantoin Monohyd/M-Cryst [Macrobid] 100 mg PO Q12HR #14 cap Referrals: Isabella Garrett III, MD [Primary Care Provider] - 1-2 days Sophia Parra MD [STAFF PHYSICIAN] - 1-2 days Beronica Parra MD [STAFF PHYSICIAN] - 1-2 days Bryce Guzman MD [STAFF PHYSICIAN] - 1-2 days Time of Disposition: 23:12
[2017-06-04 21:55] LABS: Appearance,Urine Cloudy (Clear); Bacteria,Urine Many /hpf; Bilirubin,Urine Negative (Negative); Blood,Urine Negative (Negative); Color,Urine Yellow; Glucose,Urine (UA) Negative (Negative); Ketones,Urine Negative (Negative); Leukocyte Esterase,Urine Moderate (Negative); Mucus,Urine Rare /hpf; Nitrite,Urine Positive (Negative); PH, Urine 6.5 (5.0-8.0); Protein,Urine Negative (Negative); RBC,Urine 1 /hpf (0-5); Specific Gravity,Urine 1.009 (1.001-1.035); Squamous Epithelial Cell,Urine 1 /hpf (0-4); Urobilinogen,Urine <2.0 mg/dL (<2.0); WBC,Urine 13 /hpf (0-5)
[2017-06-04 22:03] LABS: Basophils % (A) 1 %; Eosinophils # (A) 0.2 k/uL (0-0.7); Eosinophils % (A) 3 %; HCT 38.4 % (34.0-46.0); HGB 12.1 gm/dL (11.4-16.0); Lymphocytes # (A) 2.2 k/uL (1.0-4.8); Lymphocytes % (A) 33 %; MCH 27.7 pg (25.0-35.0); MCHC 31.6 g/dL (31.0-37.0); MCV 87.6 fL (80.0-100.0); Mean Platelet Volume 7.8; Monocytes # (A) 0.4 k/uL (0-1.0); Monocytes % (A) 6 %; Neutrophils # (A) 3.8 k/uL (1.3-7.7); Neutrophils % (A) 56 %; Platelet Count 264 k/uL (150-450); RBC 4.39 m/uL (3.80-5.40); RDW 15.5 % (11.5-15.5); WBC 6.8 k/uL (3.8-10.6)
[2017-06-04 22:04] LABS: Amphetamine Screen,Urine Not Detected (NotDetected); Barbiturate Screen,Urine Not Detected (NotDetected); Benzodiazepines Screen,Urine Not Detected (NotDetected); Cocaine Screen,Urine Not Detected (NotDetected); Methadone Screen, Urine Not Detected (NotDetected); Opiate Screen,Urine Not Detected (NotDetected); Oxycodone Screen, Urine Not Detected (NotDetected); Phencyclidine Screen,Urine Not Detected (NotDetected); Tricyclic Antidepressant,Urine Not Detected (NotDetected); Urn Cannabinoid Scrn Not Detected (NotDetected)
[2017-06-04 22:11] LABS: ALT 26 U/L (9-52); AST 23 U/L (14-36); Albumin 3.7 g/dL (3.5-5.0); Alkaline Phosphatase 86 U/L (38-126); Anion Gap 11 mmol/L; Blood Urea Nitrogen 18 mg/dL (7-17); Carbon Dioxide 27 mmol/L (22-30); Chloride 103 mmol/L (98-107); Glucose 83 mg/dL (74-99); Potassium 3.9 mmol/L (3.5-5.1); Sodium 141 mmol/L (137-145); Total Bilirubin 0.2 mg/dL (0.2-1.3); Total Protein 6.6 g/dL (6.3-8.2)
--- NOTE | 2017-06-04 22:31 | CT ---
EXAMINATION TYPE: CT brain wo con DATE OF EXAM: 06/04/2017 COMPARISON: NONE HISTORY: Seizure today. CT DLP: 926.9 mGycm. Automated Exposure Control for Dose Reduction was Utilized. TECHNIQUE: CT scan of the head is performed without contrast. FINDINGS: Ventricles have normal size. There is no mass effect nor midline shift. There is no sign of intracranial hemorrhage. The calvarium is intact. CONCLUSION: Normal CT scan of the brain.
--- NOTE | 2017-06-04 22:33 | XR ---
EXAMINATION TYPE: XR chest 2V DATE OF EXAM: 06/04/2017 COMPARISON: NONE HISTORY: Seizure. Chest pain TECHNIQUE: Frontal and lateral views of the chest are obtained. FINDINGS: There is a 2 cm pleural-based infiltrate along the right upper lateral chest wall. There i s mild pleural thickening at the lung apices. Heart and mediastinum are normal. There is no heart yusuf lure. There is no pleural effusion. There are chest leads. Bony thorax is intact. IMPRESSION: There is bilateral upper lobe mild pleural thickening of uncertain significance. No hear t failure.
[2017-06-04 23:09] VITALS: RESP 18
[2017-06-04] MEDS ORDERED: NITROFURANTOIN MONOHYD/M-CRYST 100 MG CAP PO STA (23:11)
[2017-06-04] MEDS ORDERED: lamoTRIgine 25 MG TAB PO ONE (23:11)
[2017-06-04 23:37] VITALS: BP 112/53; PULSE 58; TEMP 97
== END 2017-06-04 23:37 | disposition home or self-care (01) ==
LOC: EC 19:50
DX: N39.0 Urinary tract infection, site not specified (principal); R56.9 Unspecified convulsions; F17.200 Nicotine dependence, unspecified, uncomplicated; Z85.6 Personal history of leukemia; Z91.048 Other nonmedicinal substance allergy status; Z91.030 Bee allergy status; Z91.018 Allergy to other foods; Z88.5 Allergy status to narcotic agent; Z88.0 Allergy status to penicillin
CPT/HCPCS: 36415; 70450; 71046; 80053; 80306; 81001; 81025; 85025; 93005; 96360; 96361; 99285

== ENCOUNTER 2017-06-11 20:01 | Emergency (ER) | payer OTHER ==
[2017-06-11 20:14] VITALS: BP 100/55; PULSE 79; RESP 17; TEMP 97.7
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
== END 2017-06-11 21:06 | disposition home or self-care (01) ==
LOC: EC 20:01
DX: S97.81XA Crushing injury of right foot, initial encounter (principal); F17.200 Nicotine dependence, unspecified, uncomplicated; Z88.0 Allergy status to penicillin; Z88.5 Allergy status to narcotic agent; Z88.8 Allergy status to other drugs, medicaments and biological substances; Z91.018 Allergy to other foods; Z91.030 Bee allergy status; W23.0XXA Caught, crushed, jammed, or pinched between moving objects, initial encounter; Y93.89 Activity, other specified
CPT/HCPCS: 99283

== ENCOUNTER 2017-07-01 15:07 | Emergency (ER) | payer OTHER ==
[2017-07-01 15:21] VITALS: BP 110/73; PULSE 105; RESP 18; TEMP 98.4
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
== END 2017-07-01 17:26 | disposition home or self-care (01) ==
LOC: EC 15:07
DX: S61.512A Laceration without foreign body of left wrist, initial encounter (principal); F32.9 Major depressive disorder, single episode, unspecified; Z85.6 Personal history of leukemia; Z86.718 Personal history of other venous thrombosis and embolism; Z88.0 Allergy status to penicillin; Z88.5 Allergy status to narcotic agent; Z88.8 Allergy status to other drugs, medicaments and biological substances; Z91.018 Allergy to other foods; Z91.030 Bee allergy status
CPT/HCPCS: 99284

== ENCOUNTER 2017-07-06 21:45 | Inpatient (IN) | payer OTHER ==
[2017-07-06] MEDS ORDERED: KETOROLAC 30 MG/ML 1 ML VIAL IVP STA (22:19)
--- NOTE | 2017-07-06 22:29 | ED ---
Extremity Problem HPI - General Source: patient, EMS, RN notes reviewed Mode of arrival: EMS Limitations: no limitations <Carl Malcolm - Last Filed: 07/06/17 23:09> <Tom Freeman - Last Filed: 07/07/17 03:43> - General Chief complaint: Extremity Problem,Nontraumatic Stated complaint: Abscess Time Seen by Provider: 07/06/17 22:16 - History of Present Illness Initial comments: This is a 26 year old female who presents to the ED by EMS with a chief complaint of right upper arm pain which has been ongoing for 2 days. The patient admits to IV drug use with the same needle prior to the onset. She states that she tried to drain the affected area with a razor blade, but this provided no relief. She complains that the redness is extending proximally and the swelling in her upper arm is worsening. She denies fever. (Carl Malcolm) - Related Data Home Medications Medication Instructions Recorded Confirmed No Known Home Medications [No 07/01/17 07/06/17 Known Home Medications] Allergies Allergy/AdvReac Type Severity Reaction Status Date / Time asparaginase Allergy Rash/Hives Verified 07/06/17 22:35 bee venom protein (honey bee) Allergy Unknown Verified 07/06/17 22:35 Coconut Allergy Anaphylaxis Verified 07/06/17 22:35 meperidine HCl [From Demerol] Allergy Anaphylaxis Verified 07/06/17 22:35 Penicillins Allergy Swelling Verified 07/06/17 22:35 Review of Systems ROS Other: All systems not noted in ROS Statement are negative. <Carl Malcolm - Last Filed: 07/06/17 23:09> ROS Other: All systems not noted in ROS Statement are negative. <Tom Freeman - Last Filed: 07/07/17 03:43> ROS Statement: Those systems with pertinent positive or pertinent negative responses have been documented in the HPI. Past Medical History Past Medical History: Asthma, Cancer, Deep Vein Thrombosis (DVT), Seizure Disorder Additional Past Medical History / Comment(s): Leukemia, bone marrow biopsies History of Any Multi-Drug Resistant Organisms: None Reported Past Surgical History: No Surgical Hx Reported Additional Past Surgical History / Comment(s): port placement x2 2006, 2008 Past Anesthesia/Blood Transfusion Reactions: No Reported Reaction Past Psychological History: Anxiety Smoking Status: Current every day smoker Past Alcohol Use History: None Reported, Occasional Past Drug Use History: IV Drug Use, Methamphetamine - Past Family History Mother Family Medical History: No Reported History <Carl Malcolm - Last Filed: 07/06/17 23:09> General Exam Limitations: no limitations General appearance: alert, anxious Head exam: Present: atraumatic, normocephalic, normal inspection Respiratory exam: Present: normal lung sounds bilaterally. Absent: respiratory distress, wheezes, rales, rhonchi, stridor Cardiovascular Exam: Present: normal rhythm, tachycardia Extremities exam: Present: other (the right upper arm appears edematous and erythematous with ill defined margins. There are several linear scabbed areas where the patient attemped to drain the area. Pulses are equal bilaterally of upper extremities). Absent: normal inspection Neurological exam: Present: alert, oriented X3, CN II-XII intact Psychiatric exam: Present: normal affect, anxious Skin exam: Present: warm, dry <Carl Malcolm - Last Filed: 07/06/17 23:09> Vital Signs 07/06/17 07/06/17 07/07/17 21:47 23:25 01:23 Temperature 98.9 F 98.9 F Pulse Rate 115 H 103 H 93 Respiratory 18 16 16 Rate Blood Pressure 126/64 133/75 129/73 O2 Sat by Pulse 97 96 99 Oximetry Medical Decision Making - Lab Data Result diagrams: 07/06/17 22:12 <Carl Malcolm - Last Filed: 07/06/17 23:09> - Lab Data Result diagrams: 07/06/17 22:12 07/06/17 22:12 <Tom Freeman - Last Filed: 07/07/17 03:43> - Medical Decision Making 26-year-old female presented emergency from for right arm cellulitis, swelling. Patient has marked edema noted to the right arm, x-ray shows soft tissue area consistent with cellulitis gas-forming abscess is possible no evidence of osteomyelitis. Patient we given IV fluid bolus, cefepime and vancomycin. She does have an ALLERGY to penicillin and this is a reasons also does not use at this time. Patient will be admitted to hospital with consult surgery cefepime Q -wave ankle dose at by pharmacy. (Carl Malcolm) I saw this patient in conjunction with the physician assistant financial accountant. I performed independent history and physical exam. Agree with case management. (Tom Freeman) - Lab Data Lab Results 07/06/17 07/06/17 07/06/17 Range/Units 22:12 22:12 22:12 WBC 22.8 H (3.8-10.6) k/uL RBC 4.77 (3.80-5.40) m/uL Hgb 13.6 (11.4-16.0) gm/dL Hct 40.3 (34.0-46.0) % MCV 84.4 (80.0-100.0) fL MCH 28.6 (25.0-35.0) pg MCHC 33.9 (31.0-37.0) g/dL RDW 14.5 (11.5-15.5) % Plt Count 179 (150-450) k/uL Neutrophils % 90 % Lymphocytes % 7 % Monocytes % 3 % Eosinophils % 0 % Basophils % 0 % Neutrophils # 20.4 H (1.3-7.7) k/uL Lymphocytes # 1.5 (1.0-4.8) k/uL Monocytes # 0.6 (0-1.0) k/uL Eosinophils # 0.0 (0-0.7) k/uL Basophils # 0.1 (0-0.2) k/uL Sodium 133 L (137-145) mmol/L Potassium 3.9 (3.5-5.1) mmol/L Chloride 98 (98-107) mmol/L Carbon Dioxide 22 (22-30) mmol/L Anion Gap 13 mmol/L BUN 16 (7-17) mg/dL Creatinine 0.75 (0.52-1.04) mg/dL Est GFR (MDRD) Af Amer >60 (>60 ml/min/1.73 sqM) Est GFR (MDRD) Non-Af >60 (>60 ml/min/1.73 sqM) Glucose 109 H (74-99) mg/dL Plasma Lactic Acid Blayne 1.3 (0.7-2.0) mmol/L Calcium 9.3 (8.4-10.2) mg/dL Total Bilirubin 1.2 (0.2-1.3) mg/dL AST 21 (14-36) U/L ALT 14 (9-52) U/L Alkaline Phosphatase 92 (38-126) U/L Total Protein 6.9 (6.3-8.2) g/dL Albumin 3.8 (3.5-5.0) g/dL Disposition <Carl Malcolm - Last Filed: 07/06/17 23:09> <Tom Freeman - Last Filed: 07/07/17 03:43> Clinical Impression: Right arm cellulitis, Sepsis, IV drug user Disposition: ADMITTED IP TO THIS HOSP Condition: Fair
[2017-07-06 22:54] LABS: Basophils # (A) 0.1 k/uL (0-0.2); Basophils % (A) 0 %; Eosinophils % (A) 0 %; HCT 40.3 % (34.0-46.0); HGB 13.6 gm/dL (11.4-16.0); Lymphocytes # (A) 1.5 k/uL (1.0-4.8); Lymphocytes % (A) 7 %; MCH 28.6 pg (25.0-35.0); MCHC 33.9 g/dL (31.0-37.0); MCV 84.4 fL (80.0-100.0); Mean Platelet Volume 9.1; Monocytes # (A) 0.6 k/uL (0-1.0); Monocytes % (A) 3 %; Neutrophils # (A) 20.4 k/uL (1.3-7.7); Neutrophils % (A) 90 %; Platelet Count 179 k/uL (150-450); RBC 4.77 m/uL (3.80-5.40); RDW 14.5 % (11.5-15.5); WBC 22.8 k/uL (3.8-10.6)
--- NOTE | 2017-07-06 22:56 | XR ---
EXAMINATION TYPE: XR humerus RT DATE OF EXAM: 07/06/2017 COMPARISON: NONE HISTORY: Pain and redness TECHNIQUE: 2 views FINDINGS: There is anterior soft tissue swelling. There is also soft tissue air anterior to the mid a nd distal humerus. I see no fracture nor dislocation. I see no focal bone destruction. IMPRESSION: Soft tissue air consistent with cellulitis. Gas-forming abscess is possible. No evidence of osteomyelitis.
[2017-07-06] MEDS ORDERED: SODIUM CHLORIDE 0.9% 2,000 ML IV ONE (23:07)
[2017-07-06] MEDS ORDERED: SODIUM CHLORIDE 0.9% 500 ML IV ONE (23:07)
[2017-07-06] MEDS ORDERED: CEFEPIME 2 GM in SODIUM CHLORIDE 0.9% 50 ML IVPB STA (23:08)
[2017-07-06 23:09] LABS: ALT 14 U/L (9-52); AST 21 U/L (14-36); Albumin 3.8 g/dL (3.5-5.0); Alkaline Phosphatase 92 U/L (38-126); Anion Gap 13 mmol/L; Blood Urea Nitrogen 16 mg/dL (7-17); Calcium 9.3 mg/dL (8.4-10.2); Carbon Dioxide 22 mmol/L (22-30); Chloride 98 mmol/L (98-107); Glucose 109 mg/dL (74-99); Potassium 3.9 mmol/L (3.5-5.1); Sodium 133 mmol/L (137-145); Total Bilirubin 1.2 mg/dL (0.2-1.3); Total Protein 6.9 g/dL (6.3-8.2)
[2017-07-06] MEDS ORDERED: VANCOMYCIN IV PER PHARMACY 1 EACH MISC MISCELLANE PRN (23:09)
[2017-07-06] MEDS ORDERED: LORazepam 2 MG/ML INJ IV PRN (23:13)
[2017-07-06] MEDS ORDERED: NALOXONE 0.4 MG/ML 1 ML VIAL IV PRN (23:13)
[2017-07-06] MEDS ORDERED: ONDANSETRON 4 MG/2 ML VIAL IVP PRN (23:13)
[2017-07-06] MEDS ORDERED: ACETAMINOPHEN TAB 325 MG TAB PO PRN (23:13)
[2017-07-06] MEDS ORDERED: SODIUM CHLORIDE 0.9% 1,000 ML IV SCH (23:15)
[2017-07-07] MEDS ORDERED: VANCOMYCIN 750 MG in SODIUM CHLORIDE 0.9% 250 ML IVPB ONE ×2
[2017-07-07] MEDS ORDERED: MORPHINE SULFATE 4 MG/ML SYRINGE IVP PRN (02:30)
[2017-07-07 07:59] VITALS: TEMP 97.9
[2017-07-07] MEDS: CEFEPIME 2 GM in SODIUM CHLORIDE 0.9% 50 ML IVPB SCH ×2 (08:13→16:28)
[2017-07-07] MEDS ORDERED: DIPH,PERTUS(ACELL)TETVAC-LF 0.5 ML VIAL IM ONE (08:56)
--- NOTE | 2017-07-07 08:56 | P.CONS ---
History of Present Illness - Reason for Consult Consult date: 07/07/17 Right arm cellulitis, soft tissue gas - History of Present Illness This is a 26-year-old female patient with history of IV drug use with and methamphetamines which she injects into her arms and hands. She states that 3 days ago she started having right upper arm edema and pain. She apparently tried to drain it with a razor blade which did not help and she finally came into [facility] emergency center by EMS. X-ray revealed soft tissue air consistent with cellulitis and gas-forming abscess possible with no evidence of osteomyelitis. Patient was given IV fluids, cefepime and vancomycin and admitted to the [facility] floor. There is a consultation in for general surgeon. Patient is stating that she is very tired and is having difficulty waking up to answer questions. She does not feel any better from yesterday. She was also had fever and chills at home. She denies any abdominal pain, nausea vomiting or diarrhea, chest pain, cough or shortness of breath. She does not know when her last tetanus was updated. Review of Systems All systems: negative Constitutional: Reports chills, Reports fever Eyes: denies blurred vision, denies pain Ears, nose, mouth and throat: Denies headache, Denies sore throat Cardiovascular: Denies chest pain, Denies decreased exercise tolerance, Denies dyspnea on exertion, Denies edema, Denies leg edema, Denies lightheadedness, Denies shortness of breath, Denies syncope Respiratory: Denies cough, Denies cough with sputum, Denies dyspnea, Denies excessive sputum, Denies hemoptysis, Denies home oxygen, Denies wheezing Gastrointestinal: Denies abdominal pain, Denies diarrhea, Denies nausea, Denies vomiting Genitourinary: Denies dysuria, Denies hematuria Musculoskeletal: Denies myalgias Musculoskeletal: right: elbow pain, elbow stiffness, elbow swelling Integumentary: Reports wounds, Denies pruritus, Denies rash Neurological: Denies numbness, Denies weakness Psychiatric: Denies anxiety, Denies depression Endocrine: Denies fatigue, Denies weight change Past Medical History Past Medical History: Asthma, Cancer, Deep Vein Thrombosis (DVT), Seizure Disorder Additional Past Medical History / Comment(s): ALL History of Any Multi-Drug Resistant Organisms: None Reported Past Surgical History: No Surgical Hx Reported Additional Past Surgical History / Comment(s): Bone marrow biopsies, port placement x2 2006, 2008 Past Anesthesia/Blood Transfusion Reactions: No Reported Reaction Past Psychological History: Anxiety Smoking Status: Current every day smoker Past Alcohol Use History: None Reported, Occasional Additional Past Alcohol Use History / Comment(s): Patient is a smoker one pack per day for 4 years. She has active IV drug use with methamphetamine with prior history of ear when use. She lives alone and has a dog at home. 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 Past Drug Use History: IV Drug Use, Methamphetamine - Past Family History Mother Family Medical History: No Reported History Medications and Allergies Home Medications Medication Instructions Recorded Confirmed Type No Known Home Medications [No 07/01/17 07/06/17 History Known Home Medications] Allergies Allergy/AdvReac Type Severity Reaction Status Date / Time asparaginase Allergy Rash/Hives Verified 07/06/17 22:35 bee venom protein (honey bee) Allergy Unknown Verified 07/06/17 22:35 Coconut Allergy Anaphylaxis Verified 07/06/17 22:35 meperidine HCl [From Demerol] Allergy Anaphylaxis Verified 07/06/17 22:35 Penicillins Allergy Swelling Verified 07/06/17 22:35 Physical Exam Vitals: Vital Signs Temp Pulse Pulse Resp BP BP Pulse Ox 07/07/17 07:00 97.9 F 107 H 15 83/46 98 07/07/17 04:41 86 16 07/07/17 02:11 98.4 F 86 16 98/56 96 07/07/17 01:23 93 16 129/73 99 07/06/17 23:25 98.9 F 103 H 16 133/75 96 07/06/17 21:47 98.9 F 115 H 18 126/64 97 Intake and Output 07/06/17 07/07/17 07/07/17 22:59 06:59 14:59 Intake Total 250 Balance 250 Intake: Intake, IV Titration 250 Amount Vancomycin 750 mg In 250 Sodium Chloride 0.9% 250 ml @ 125 mls/hr IVPB Q12H [facility] Rx#:[id number] Other: Weight 48.988 kg Gen: This is a disheveled appearing 26-year-old female. Patient is sleeping arouses easily to verbal stimuli. HEENT: Head is atraumatic, normocephalic. Pupils equal, round. Sclerae is anicteric. NECK: Supple. No JVD. No lymphadenopathy. No thyromegaly. LUNGS: Clear to auscultation. No wheezes or rhonchi. No intercostal retractions. HEART: Regular rate and rhythm. No murmur. ABDOMEN: Soft. Bowel sounds are present. No masses. No tenderness. EXTREMITIES: No pedal edema. No calf tenderness. Dorsalis pedis +2 bilaterally. Patient has an IV site to the left dorsal hand that shows no signs of infection. Right arm is edematous and noted to have healing wound to the antecubital area. Decreased range of motion secondary to pain of the right elbow. NEUROLOGICAL: Patient is awake, alert and oriented x3. Cranial nerves 2 through 12 are grossly intact. Results Results: Laboratory Results WBC 22.8 k/uL (3.8-10.6) H 07/06/17 22:12 RBC 4.77 m/uL (3.80-5.40) 07/06/17 22:12 Hgb 13.6 gm/dL (11.4-16.0) 07/06/17 22:12 Hct 40.3 % (34.0-46.0) 07/06/17 22:12 MCV 84.4 fL (80.0-100.0) 07/06/17 22:12 MCH 28.6 pg (25.0-35.0) 07/06/17 22:12 MCHC 33.9 g/dL (31.0-37.0) 07/06/17 22:12 RDW 14.5 % (11.5-15.5) 07/06/17 22:12 Plt Count 179 k/uL (150-450) 07/06/17 22:12 Neutrophils % 90 % 07/06/17 22:12 Lymphocytes % 7 % 07/06/17 22:12 Monocytes % 3 % 07/06/17 22:12 Eosinophils % 0 % 07/06/17 22:12 Basophils % 0 % 07/06/17 22:12 Neutrophils # 20.4 k/uL (1.3-7.7) H 07/06/17 22:12 Lymphocytes # 1.5 k/uL (1.0-4.8) 07/06/17 22:12 Monocytes # 0.6 k/uL (0-1.0) 07/06/17 22:12 Eosinophils # 0.0 k/uL (0-0.7) 07/06/17 22:12 Basophils # 0.1 k/uL (0-0.2) 07/06/17 22:12 Sodium 133 mmol/L (137-145) L 07/06/17 22:12 Potassium 3.9 mmol/L (3.5-5.1) 07/06/17 22:12 Chloride 98 mmol/L (98-107) 07/06/17 22:12 Carbon Dioxide 22 mmol/L (22-30) 07/06/17 22:12 Anion Gap 13 mmol/L 07/06/17 22:12 BUN 16 mg/dL (7-17) 07/06/17 22:12 Creatinine 0.75 mg/dL (0.52-1.04) 07/06/17 22:12 Est GFR (MDRD) Af Amer >60 (>60 ml/min/1.73 sqM) 07/06/17 22:12 Est GFR (MDRD) Non-Af >60 (>60 ml/min/1.73 sqM) 07/06/17 22:12 Glucose 109 mg/dL (74-99) H 07/06/17 22:12 Plasma Lactic Acid Blayne 1.3 mmol/L (0.7-2.0) 07/06/17 22:12 Calcium 9.3 mg/dL (8.4-10.2) 07/06/17 22:12 Total Bilirubin 1.2 mg/dL (0.2-1.3) 07/06/17 22:12 AST 21 U/L (14-36) 07/06/17 22:12 ALT 14 U/L (9-52) 07/06/17 22:12 Alkaline Phosphatase 92 U/L (38-126) 07/06/17 22:12 Total Protein 6.9 g/dL (6.3-8.2) 07/06/17 22:12 Albumin 3.8 g/dL (3.5-5.0) 07/06/17 22:12 CBC & Chem 7: 07/06/17 22:12 07/06/17 22:12 Labs: Abnormal Lab Results - Last 24 Hours (Table) 02/19/18 02/19/18 Range/Units 22:12 22:12 WBC 22.8 H (3.8-10.6) k/uL Neutrophils # 20.4 H (1.3-7.7) k/uL Sodium 133 L (137-145) mmol/L Glucose 109 H (74-99) mg/dL Assessment and Plan Plan: This is a 26-year-old female who presented to hospital with signs of sepsis with leukocytosis and hypotension status post IV fluids secondary to cellulitis and early abscess formation in the right arm secondary to IV drug use with concern for necrotizing fasciitis. Patient is currently on cefepime and vancomycin and clindamycin will be added. CAT scan has been ordered. Blood cultures status received. No active drainage from the wound site. General surgeon is on consult and agree with their recommendations to transfer the patient. Tetanus status will be updated. Continues supportive care. Further recommendations as patient progresses. The above dictated assessment and findings were discussed with Dr. Rudd. The impression and plan of care have been directed as dictated. Mar Villalobos nurse practitioner acting as scribe for Dr. Rudd.
[2017-07-07] MEDS ORDERED: VANCOMYCIN 750 MG in SODIUM CHLORIDE 0.9% 250 ML IVPB SCH ×2 (10:00→18:00)
[2017-07-07] MEDS ORDERED: KETOROLAC 30 MG/ML 1 ML VIAL IVP PRN (10:10)
--- NOTE | 2017-07-07 11:52 | CT ---
"EXAMINATION TYPE: CT upper extremity RT wo con DATE OF EXAM: 07/07/2017 COMPARISON: NONE HISTORY: Cellulitis right arm CT DLP: 494.7 mGycm Automated exposure control for dose reduction was used. FINDINGS: In the anterior compartment of the arm there is a localized fluid collection measuring at least 5.7 x 2 point for centimeters in transverse by anterior posterior dimension unable to be accurately deline ated in craniocaudal dimension as it is elongated along the muscular planes but extends approximately to the elbow joint from the approximate mid diaphysis of the humerus. Numerous foci of air are seen within this fluid collection and external to this fluid collection in the anterior compartment that d o not cross the medial and lateral intermuscular septa to extend into the posterior compartment. Exte nsive myositis is seen of both the anterior and posterior compartments with surrounding extensive sub cutaneous edema and mild anterior skin thickening. Few foci of air are seen on series 5 image 100 ext ending towards the skin surface. There is no evidence of osseous erosion, cortical thickening or suspicious osseous lesion. No evidenc e of fracture or dislocation. IMPRESSION: LARGE FLUID COLLECTION WITHIN THE ANTERIOR COMPARTMENT OF THE RIGHT UPPER EXTREMITY CONTAINING MANDY US FOCI OF AIR WITH AIR ALSO SEEN ALONG THE FASCIAL PLANES AND IN THE SUBCUTANEOUS SOFT TISSUES. CONS IDERATIONS ARE FOR NECROTIZING FASCIITIS OR INTRAMUSCULAR ABSCESS WITH EXTENSIVE MYOSITIS AND IATROGE JONATHAN AIR WITHIN THE SUBCUTANEOUS TISSUES FROM ATTEMPTED DRAIN THE ABSCESS. A Red message has been communicated to Angelito العراقي MD via the [employer] | Critical Result syst em on 07/07/2017 11:49 AM, Message ID [id number]."
--- NOTE | 2017-07-07 12:20 | US ---
EXAMINATION TYPE: US venous doppler duplex UE RT DATE OF EXAM: 07/07/2017 COMPARISON: Correlation CT same day CLINICAL HISTORY: 26-year-old female IVDA with swelling and severe pain and redness of the upper arm, evaluate for DVT . SIDE PERFORMED: Right FINDINGS: PUBLIC SPEAKER NOTES: This exam is somewhat limited due to patient inability to adduct arm, or hold arm down instead of up, and severe pain in arm. Patient also screaming in pain during scan of upper arm. Right Arm: Appears negative for DVT with some limitations. Along the deep musculature adjacent to the humeral cortex, there is a heterogeneous collection measur ing at least 6.2 x 1.0 x 1.8 cm containing internal air. Soft tissue edema. IMPRESSION: 1. Exam appears negative for DVT in the right upper extremity with some limitations as above. 2. Cellulitis and abnormal heterogeneous collection measuring up to 6.2 cm long in the deep musculatu re of the anterior compartment of the arm. The collection contains extensive air. Correlate for sever e myositis and infection with gas forming organism. Necrotizing fasciitis should also be considered.
--- NOTE | 2017-07-07 12:21 | US ---
EXAMINATION TYPE: US carotid duplex BILAT DATE OF EXAM: 07/07/2017 COMPARISON: NONE CLINICAL HISTORY: 26-year-old femaleIntervenous drug user, difficulty responding. TECHNIQUE: Carotid duplex ultrasound examination. Indirect Doppler criteria was utilized. FINDINGS: EXAM MEASUREMENTS: RIGHT: Peak Systolic Velocity (PSV) cm/sec ----- Right CCA: 87.5 ----- Right ICA: 116.2 ----- Right ECA: 72.6 ICA/CCA ratio: 1.3 RIGHT: End Diastole cm/sec ----- Right CCA: 35.8 ----- Right ICA: 48.9 ----- Right ECA: 8.0 LEFT: Peak Systolic Velocity (PSV) cm/sec ----- Left CCA: 88.1 ----- Left ICA: 97.4 ----- Left ECA: 59.3 ICA/CCA ratio: 1.1 LEFT: End Diastole cm/sec ----- Left CCA: 28.6 ----- Left ICA: 32.5 ----- Left ECA: 6.6 VERTEBRALS (direction of flow): Right Vertebral: Antegrade Left Vertebral: Antegrade Rhythm: Normal Director Occupational notes: No significant velocity elevations, no evidence of plaque. IMPRESSION: No hemodynamically significant stenosis appreciated in either internal carotid artery. Criteria for Assigning % of Stenosis / Diameter reduction (Estimation based on the indirect measurements of the internal carotid artery velocities (ICA PSV). 1. Normal (no stenosis)=ICA PSV < 125 cm/s: ratio < 2.0: ICA EDV<40 cm/s. 2. Less than 50% stenosis=ICA PSV < 125 cm/s: ratio < 2.0: ICA EDV<40 cm/s. 3. 50 to 69% stenosis=ICA PSV of 125 to 230 cm/s: ration 2.0 ? 4.0: ICA EDV 40-100 cm/s. 4. Greater than 70% stenosis to near occlusion= ICA PSV > 230 cm/s: ratio > 4.0: ICA EDV > 100 cm/s. 5. Near occlusion= ICA PSV velocities may be low or undetectable: variable ratio and ICA EDV. 6. Total occlusion=unable to detect flow.
[2017-07-07 12:35] VITALS: RESP 18
--- NOTE | 2017-07-07 12:44 | P.GSCN ---
History of Present Illness Consult date: 07/07/17 Reason for Consult: Right upper arm pain abscess History of present illness: 26-year-old presented to the emergency room via the EMS system which was activated by her son when the patient stated she was screaming out loud could not tolerate excruciating pain involving the right upper arm which had been ongoing for the past 48 hours. Patient admits to using IV drugs use of methamphetamines. Patient states that 3 days ago after injecting into her right antecubital area developed pain with increase edema to the right upper arm. Patient states that she used the same needle to try to drain the right antecubital arm. Patient states tried to drain the affected area with a razor blade as well but this did not provide any relief. Stated for the last 48 hours there was increased pain intolerable involving the right upper arm with increase edema. Patient stated was very painful to even move the right arm In the emergency room the temp is 98.9 tachycardic heart rate 110.and Hypotensive The right upper arm edematous with tenderness. There are several linear scabbed areas in the right antecubital where the patient tried to drain the area. Patient also states that she often injects into her feet last use was 3 weeks ago there are scabbed areas on the tops of the feet X-rays in the emergency room of the right upper extremity showed soft tissue air consistent with cellulitis and gas forming abscess. Patient is being currently followed by infectious disease.. A computed tomography scan of the upper extremity results shown impression of a large fluid collection within the anterior compartment of the right upper extremity containing numerous foci of air with air seen along the fascial planes and in the subcutaneous soft tissue consideration for necrotizing fasciitis or intramuscular abscess with extensive myositis. No evidence of a fracture or dislocation. Review of Systems Essentially unremarkable except as mentioned in the present illness Past Medical History Past Medical History: Asthma, Cancer, Deep Vein Thrombosis (DVT), Seizure Disorder Additional Past Medical History / Comment(s): ALL History of Any Multi-Drug Resistant Organisms: None Reported Past Surgical History: No Surgical Hx Reported Additional Past Surgical History / Comment(s): Bone marrow biopsies, port placement x2 2006, 2008 Past Anesthesia/Blood Transfusion Reactions: No Reported Reaction Past Psychological History: Anxiety Smoking Status: Current every day smoker Past Alcohol Use History: None Reported, Occasional Additional Past Alcohol Use History / Comment(s): Patient is a smoker one pack per day for 4 years. She has active IV drug use with methamphetamine with prior history of ear when use. She lives alone and has a dog at home. 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 Past Drug Use History: IV Drug Use, Methamphetamine - Past Family History Mother Family Medical History: No Reported History Medications and Allergies Home Medications Medication Instructions Recorded Confirmed Type No Known Home Medications [No 07/01/17 07/06/17 History Known Home Medications] Allergies Allergy/AdvReac Type Severity Reaction Status Date / Time asparaginase Allergy Rash/Hives Verified 07/06/17 22:35 bee venom protein (honey bee) Allergy Unknown Verified 07/06/17 22:35 Coconut Allergy Anaphylaxis Verified 07/06/17 22:35 meperidine HCl [From Demerol] Allergy Anaphylaxis Verified 07/06/17 22:35 Penicillins Allergy Swelling Verified 07/06/17 22:35 Surgical - Exam Vital Signs Temp Pulse Resp BP Pulse Ox 98.9 F 115 H 18 126/64 97 07/06/17 21:47 07/06/17 21:47 07/06/17 21:47 07/06/17 21:47 07/06/17 21:47 GENERAL APPEARANCE: 26-year-old female looking older than stated age poor dental hygiene with teeth decay reports having unbearable right upper extremity pain worse with movement currently is awake and alert and oriented 3 VITAL SIGNS: Reviewed HEENT: Head is normocephalic and atraumatic. Pupils are equal and reactive. The nares are patent. Oropharynx is clear without lesions. NECK: Supple without lymphadenopathy. Traches midline. HEART: S1, S2. Regular rate and rhythm. No murmur noted denying chest pain LUNGS: No crackles or wheezes are heard. Adequate air movement no cough noted ABDOMEN: Soft, nontender, nondistended with good bowel sounds. No peritoneal signs. No palpable organomegaly or masses. EXTREMITIES: No calf tenderness. No pedal edema and palpable pulses. Peripheral IV left dorsal hand no redness no swelling. The tops of the bilateral feet several scarred areas noted patient states had used her feet to inject IV drugs the last was 3 weeks ago the right arm significantly edematous red warm to touch positive tenderness a healing wound to the antecubital area which the patient reference this is the site that she tried to drain. Decreased range of motion elicits pain to the right elbow patient states it's painful to move NEUROLOGICAL: No focal deficits. Strength and sensation are grossly intact. Results - Labs 07/06/17 22:12 07/06/17 22:12 Abnormal Lab Results - Last 24 Hours (Table) 07/06/17 07/06/17 Range/Units 22:12 22:12 WBC 22.8 H (3.8-10.6) k/uL Neutrophils # 20.4 H (1.3-7.7) k/uL Sodium 133 L (137-145) mmol/L Glucose 109 H (74-99) mg/dL Diabetes panel 07/06/17 Range/Units 22:12 Sodium 133 L (137-145) mmol/L Potassium 3.9 (3.5-5.1) mmol/L Chloride 98 (98-107) mmol/L Carbon Dioxide 22 (22-30) mmol/L BUN 16 (7-17) mg/dL Creatinine 0.75 (0.52-1.04) mg/dL Glucose 109 H (74-99) mg/dL Calcium 9.3 (8.4-10.2) mg/dL AST 21 (14-36) U/L ALT 14 (9-52) U/L Alkaline Phosphatase 92 (38-126) U/L Total Protein 6.9 (6.3-8.2) g/dL Albumin 3.8 (3.5-5.0) g/dL Calcium panel 07/06/17 Range/Units 22:12 Calcium 9.3 (8.4-10.2) mg/dL Albumin 3.8 (3.5-5.0) g/dL Pituitary panel 07/06/17 Range/Units 22:12 Sodium 133 L (137-145) mmol/L Potassium 3.9 (3.5-5.1) mmol/L Chloride 98 (98-107) mmol/L Carbon Dioxide 22 (22-30) mmol/L BUN 16 (7-17) mg/dL Creatinine 0.75 (0.52-1.04) mg/dL Glucose 109 H (74-99) mg/dL Calcium 9.3 (8.4-10.2) mg/dL Adrenal panel 07/06/17 Range/Units 22:12 Sodium 133 L (137-145) mmol/L Potassium 3.9 (3.5-5.1) mmol/L Chloride 98 (98-107) mmol/L Carbon Dioxide 22 (22-30) mmol/L BUN 16 (7-17) mg/dL Creatinine 0.75 (0.52-1.04) mg/dL Glucose 109 H (74-99) mg/dL Calcium 9.3 (8.4-10.2) mg/dL Total Bilirubin 1.2 (0.2-1.3) mg/dL AST 21 (14-36) U/L ALT 14 (9-52) U/L Alkaline Phosphatase 92 (38-126) U/L Total Protein 6.9 (6.3-8.2) g/dL Albumin 3.8 (3.5-5.0) g/dL Assessment and Plan Assessment: Present on admission leukocytosis hypotensive tachycardic sepsis suspect due to necrotizing fasciitis with early abscess formation right antecubital due to recent IV drug use Active every day smoker 1 pack a day Active IV drug use with methamphetamine CAT scan right upper extremity large fluid collection within the anterior compartment of the right arm containing numerous foci of air likely necrotizing fasciitis Dopplers to the right upper extremity negative for evidence of a DVT Present on admission intractable pain to the right upper extremity likely due to necrotizing fasciitis Plan Transfer patient to a tertiary center for treatment of possible necrotizing fasciitis involving the right antecubital space. Patient may be a candidate for hyperbaric treatment in which this facility does not offer Continue recommendations by infectious disease IV antibiotics per the recommendations Keep nothing by mouth Pain control DVT and GI prophylaxis Consultation note dictated for Dr.kim Hurt The above impression and plan of care have been discussed and directed by signing physician. Sera Reid nurse practitioner acting as scribe for signing physician.
[2017-07-07 14:33] VITALS: BMI 16.9
--- NOTE | 2017-07-07 15:33 | HP ---
HISTORY AND PHYSICAL COMBINED HISTORY AND PHYSICAL/DISCHARGE SUMMARY: CHIEF COMPLAINTS: Right arm pain and swelling HISTORY OF PRESENT ILLNESS: This is a 26-year-old woman with a past medical history of asthma, history of DVT, history of seizure disorder, anxiety being followed by no primary physician in the outpatient setting, was actually injecting methamphetamine through veins on the right side using diabetic needles according to her. The patient noted pain and swelling of the right arm which is increasing in intensity. Patient came to [facility] and was admitted for evaluation and treatment. A CAT scan of the upper arm done today showed a large fluid collection in the anterior compartment of the right upper extremity containing numerous foci of air with fascial planes and subcutaneous soft tissue, possibility of necrotic tissue is considered and Surgery was consulted. The surgeon, Dr. Izquierdo recommended transfer to tertiary care center for further evaluation and treatment because extensive nature of the disease. There is no history of any fever, rigors. No history of headache, no loss of consciousness. The white count is elevated. Lactic acid was also normal. PAST MEDICAL HISTORY: Asthma, DVT, seizure disorder, history of anxiety, history of nicotine dependence, substance abuse. MEDICATIONS: Prior to admission include, home medications are none. ALLERGIES: ASPARAGINASE, BEE VENOM, COCONUT, MEPERIDINE, PENICILLIN. FAMILY HISTORY: No history of heart disease or strokes in the family. SOCIAL HISTORY: History of smoking, history of IV heroin abuse and history of IV meth abuse recently. REVIEW OF SYSTEMS: ENT: No diminished vision or hearing. CARDIOVASCULAR: No angina or palpitation. RESPIRATORY: As mentioned earlier. GI: As mentioned earlier. : No dysuria. NERVOUS SYSTEM: No numbness or weakness. ALLERGY/IMMUNOLOGY: No asthma or hayfever. MUSCULOSKELETAL: As mentioned earlier. HEMATOLOGY/ONCOLOGY: No history of anemia. ENDOCRINE: No history of diabetes or hypothyroidism. CONSTITUTIONAL: As mentioned earlier. DERMATOLOGY: As mentioned earlier. RHEUMATOLOGY: Negative. PSYCHIATRY: As mentioned earlier. PHYSICAL EXAMINATION: Patient is alert and oriented x3. Pulse 107, blood pressure 83/46, respiration 15, temperature 97.5, pulse ox 98% room air. HEENT: Conjunctivae normal. Oral mucosa moist. Neck is no jugular venous distention. No lymph node enlargement. CARDIOVASCULAR: S1,S2, muffled. No S3, no S4. RESPIRATORY: Breath sounds diminished in the bases, no rhonchi, no crackles. ABDOMEN: Soft, nontender. No mass palpable. No hepatosplenomegaly. LEGS: No edema, no swelling. NERVOUS SYSTEM: Higher functions as mentioned earlier. Moves all four limbs. No focal deficits. LYMPHATICS: No lymphadenopathy. SKIN: Extensive induration tenderness and erythema of the right upper arm which is extending to the proximal forearm and as well as side of the chest including axillae also. Otherwise joints, no active deforming arthropathy except limited movements in elbow joint on the right. LAB INVESTIGATIONS: WBC 20.8, hemoglobin 13.5, sodium 130. ASSESSMENT: 1. Acute extensive necrotizing fasciitis of the right arm secondary to IV drug abuse and methamphetamine injections. 2. Increased WBC. 3. Hyponatremia. 4. History of nicotine dependence. 5. History of asthma. 6. History of deep venous thrombosis. 7. History of seizure disorder. RECOMMENDATION: In this 26-year-old woman who presented with multiple complex medical issues, will monitor the patient closely. Continue with the current management and symptomatic treatment. Patient started on cefepime and clindamycin IV. Cultures are being obtained. Surgery has been consulted as mentioned earlier. I have discussed the case at length with Сергей Maxwell Surgical Team per General Surgery recommendations and [facility] will transfer the patient for further evaluation and treatment. Please refer to the current MR for current medications and the overall prognosis is extremely guarded because of multiple complex medical issues. MMODL / IJN: [id number] / SMITA
[2017-07-07] MEDS ORDERED: SODIUM CHLORIDE 0.9% 1,000 ML IV ONE ×2 (15:56)
[2017-07-07 15:58] VITALS: PULSE 80
[2017-07-07 15:59] VITALS: BP 82/44
[2017-07-07] MEDS ORDERED: HEPARIN SODIUM,PORCINE 5,000 UNIT/ML 1 ML VIAL SQ SCH (16:00)
[2017-07-07] MEDS ORDERED: CLINDAMYCIN 600 MG in DEXTROSE 5% IN WATER 50 ML IVPB SCH ×2 (18:00)
--- NOTE | 2017-07-07 18:55 | P.CON ---
Consult Note - . Consult date: 07/07/17 Assessment/Plan:: This is a 26-year-old female patient with history of IV drug use with and methamphetamines which she injects into her arms and hands. She states that 3 days ago she started having right upper arm edema and pain. She apparently tried to drain it with a razor blade which did not help and she finally came into [facility] emergency center by EMS. X-ray revealed soft tissue air consistent with cellulitis and gas-forming abscess possible with no evidence of osteomyelitis. Patient was given IV fluids, cefepime and vancomycin and admitted to the [facility] floor. There is a consultation in for general surgeon. Patient is stating that she is very tired and is having difficulty waking up to answer questions. She does not feel any better from yesterday. She was also had fever and chills at home. She denies any abdominal pain, nausea vomiting or diarrhea, chest pain, cough or shortness of breath. She does not know when her last tetanus was updated. Please to the consult note is dictated by nurse practitioner Mrs. Mar Villalobos. The patient is quite ill. Imaging of the arm is been requested from the surgeon. There is evidence of significant infection within the soft tissue and there is a concern for potential necrotizing fasciitis by the computed tomography scan. Given the complexity of the case, it is discussed with the surgeon and the patient will be transferred to the tertiary care center for the extensive surgical debridement that will be required and possible reconstruction if needed. Intravenous antibiotic therapy with vancomycin and cefepime were started, clindamycin added in case was a streptococcal component to reduce toxin formation. Tetanus will be updated before her transfer. I agree with evaluation, assessment and plan as dictated by nurse practitioner Mrs. Mar Villalobos.
== END 2017-07-07 17:20 | disposition short-term general hospital (02) | DRG 871 ==
LOC: EC 21:45 → 5MS5E 23:09
PROVIDERS: ADMIT Hospitalist; ATTEND Hospitalist
DX: A41.9 Sepsis, unspecified organism (principal); M72.6 Necrotizing fasciitis; E87.1 Hypo-osmolality and hyponatremia; L03.113 Cellulitis of right upper limb; F15.10 Other stimulant abuse, uncomplicated; J45.909 Unspecified asthma, uncomplicated; G40.909 Epilepsy, unspecified, not intractable, without status epilepticus; F17.210 Nicotine dependence, cigarettes, uncomplicated; F41.9 Anxiety disorder, unspecified; Z91.030 Bee allergy status; Z88.0 Allergy status to penicillin; Z88.8 Allergy status to other drugs, medicaments and biological substances; Z86.718 Personal history of other venous thrombosis and embolism; Z91.018 Allergy to other foods; Z85.6 Personal history of leukemia
CPT/HCPCS: 36415; 80053; 83605; 85025; 87040; 93880; 96361; 96365; 96375; 99284

== ENCOUNTER 2017-08-18 22:56 | Emergency (ER) | payer OTHER ==
[2017-08-18 23:03] VITALS: TEMP 97.5
[2017-08-18] MEDS ORDERED: ONDANSETRON ODT 4 MG TAB PO STA (23:22)
--- NOTE | 2017-08-18 23:25 | ED ---
General Adult HPI - General Chief complaint: Chest Pain Stated complaint: Rib injury from CPR Time Seen by Provider: 08/18/17 23:14 Source: patient, RN notes reviewed, old records reviewed Mode of arrival: wheelchair Limitations: no limitations - History of Present Illness Initial comments: This is a 27-year-old female the ER. Patient presents ER today for evaluation regarding chest pain. Severe anterior chest pain worse with a deep breath. Patient has history of significant drug abuse. Patient states that she is had recent relapse with heroin, as well as mass, accessory. Patient states she had an episode where she lost consciousness and had CPR done on her last night. Patient states return back to normal without any further intervention. Patient complaining of chest pain that is been persistent since last night feeling like she got punctured hit in the chest. She does have nausea and vomiting. - Related Data Home Medications Medication Instructions Recorded Confirmed No Known Home Medications [No 07/01/17 08/18/17 Known Home Medications] Allergies Allergy/AdvReac Type Severity Reaction Status Date / Time asparaginase Allergy Rash/Hives Verified 08/18/17 23:19 bee venom protein (honey bee) Allergy Unknown Verified 08/18/17 23:19 Coconut Allergy Anaphylaxis Verified 08/18/17 23:19 meperidine HCl [From Demerol] Allergy Anaphylaxis Verified 08/18/17 23:19 Penicillins Allergy Swelling Verified 08/18/17 23:19 Review of Systems ROS Statement: Those systems with pertinent positive or pertinent negative responses have been documented in the HPI. ROS Other: All systems not noted in ROS Statement are negative. Past Medical History Past Medical History: Asthma, Cancer, Deep Vein Thrombosis (DVT), Seizure Disorder Additional Past Medical History / Comment(s): ALL History of Any Multi-Drug Resistant Organisms: None Reported Past Surgical History: No Surgical Hx Reported Additional Past Surgical History / Comment(s): Bone marrow biopsies, port placement x2 2006, 2008 Past Anesthesia/Blood Transfusion Reactions: No Reported Reaction Past Psychological History: Anxiety Smoking Status: Current every day smoker Past Alcohol Use History: None Reported, Occasional Past Drug Use History: Heroin, IV Drug Use, Methamphetamine - Past Family History Mother Family Medical History: No Reported History General Exam Limitations: no limitations General appearance: alert, in no apparent distress Head exam: Present: atraumatic, normocephalic, normal inspection Eye exam: Present: normal appearance, PERRL, EOMI. Absent: scleral icterus, conjunctival injection, periorbital swelling ENT exam: Present: normal exam, mucous membranes moist Neck exam: Present: normal inspection. Absent: tenderness, meningismus, lymphadenopathy Respiratory exam: Present: normal lung sounds bilaterally. Absent: respiratory distress, wheezes, rales, rhonchi, stridor Cardiovascular Exam: Present: regular rate, normal rhythm, normal heart sounds. Absent: systolic murmur, diastolic murmur, rubs, gallop, clicks GI/Abdominal exam: Present: soft, normal bowel sounds. Absent: distended, tenderness, guarding, rebound, rigid Extremities exam: Present: normal inspection, full ROM, normal capillary refill. Absent: tenderness, pedal edema, joint swelling, calf tenderness Back exam: Present: normal inspection Neurological exam: Present: alert, oriented X3, CN II-XII intact Psychiatric exam: Present: normal affect, normal mood Skin exam: Present: warm, dry, intact, normal color. Absent: rash Course Vital Signs 08/18/17 22:57 Temperature 97.5 F L Pulse Rate 79 Respiratory 18 Rate Blood Pressure 116/84 O2 Sat by Pulse 100 Oximetry - Reevaluation(s) Reevaluation #1: 08/18/17 23:24 Patient is awake alert no acute distress Medical Decision Making - Medical Decision Making 27 female the ER history of drug abuse coming in with CPR done patient last night secondary to drug overdose. Patient woke up and was for continued further chest pain today and coming to ER for evaluation. X-rays negative EKG is negative. Patient is awake and alert with normal vital signs. Patient will be discharged home - EKG Data -: EKG Interpreted by Me (EKG shows normal sinus rhythm rate of 86, OH 150, QRS 90, QTc 478) - Radiology Data Radiology results: report reviewed (Chest x-rays negative for acute disease), image reviewed Disposition Clinical Impression: Chest pain, Atypical chest pain, Pleuritic pain, Costalchondritis Disposition: HOME SELF-CARE Condition: Fair Instructions: Costochondritis (ED) Referrals: Isabella Garrett III, MD [Primary Care Provider] - 1-2 days
[2017-08-18] MEDS ORDERED: cloNIDine 0.3 MG/24HR PATCH 1 PATCH PATCH TRANSDERM ONE (23:30)
--- NOTE | 2017-08-18 23:45 | XR ---
EXAMINATION TYPE: XR chest 2V DATE OF EXAM: 08/18/2017 COMPARISON: 06/04/2017 HISTORY: Chest pain TECHNIQUE: Frontal and lateral views of the chest are obtained. FINDINGS: There is some patchy pleural thickening and reticular linear infiltrate at the lung apices . The lower lung saavedra are fairly clear. There is no heart failure. There is slight fullness of the pulmonary dain. There are chest leads. Bony thorax is intact. IMPRESSION: Mild bronchial adenopathy. Pleural and pulmonary infiltrates at the lung apices probably related to scarring. This could be sarcoidosis. There is progression of the abnormalities compared t o last exam.
[2017-08-19 03:09] VITALS: RESP 16
[2017-08-19 03:37] VITALS: BP 94/56; PULSE 65
== END 2017-08-19 03:30 | disposition home or self-care (01) ==
LOC: EC 22:56
DX: M94.0 Chondrocostal junction syndrome [Tietze] (principal); R11.2 Nausea with vomiting, unspecified; F17.200 Nicotine dependence, unspecified, uncomplicated; Z86.718 Personal history of other venous thrombosis and embolism; Z85.9 Personal history of malignant neoplasm, unspecified; Z88.0 Allergy status to penicillin; Z88.5 Allergy status to narcotic agent; Z88.8 Allergy status to other drugs, medicaments and biological substances; Z91.018 Allergy to other foods; Z91.030 Bee allergy status
CPT/HCPCS: 71046; 93005; 99285

== ENCOUNTER 2018-01-01 01:07 | Emergency (ER) | payer OTHER ==
--- NOTE | 2018-01-01 01:16 | ED ---
General Adult HPI - General Stated complaint: overdose - History of Present Illness Initial comments: Anita is a 27-year-old female with past medical history of substance abuse who presents the ED today in police custody for evaluation of altered mental status. Per police they were called because the patient was noted to be walking outside in the rain, a bystander reports that they saw her walking around and she laid down and appeared to go to sleep in the grass. They did not witness any falls or injuries. Police and EMS arrived on scene and the patient refused to cooperate with any examination, she would not speak to them, she had her head turned firmly to the right and would not open her eyes. When her eyes were forced open for pupillary exam the patient's eyes were rolled to the back of her head or deviated in either direction. Patient had no obvious signs of injury. On initial evaluation the patient is wet consistent with a history of being on the rain. She has no obvious head trauma. She is moving all extremities though her hands are currently coughed. On initial evaluation the patient's refusing to speak. When her clothes were cut off to facilitate evaluation the patient became very agitated cursing and kicking. At that time the patient began stating that she refuses any medical treatment. Patient was able to provide her full name, date of , identify her location , unified the year and month. She was aware of events leading up to hospitalization. She denied any injury or complaints. She repeatedly declined any further examination. - Related Data Home Medications Medication Instructions Recorded Confirmed No Known Home Medications 07/01/17 08/18/17 Allergies Allergy/AdvReac Type Severity Reaction Status Date / Time asparaginase Allergy Rash/Hives Verified 01/01/18 01:20 bee venom protein (honey bee) Allergy Unknown Verified 01/01/18 01:20 Coconut Allergy Anaphylaxis Verified 01/01/18 01:20 meperidine HCl [From Demerol] Allergy Anaphylaxis Verified 01/01/18 01:20 Penicillins Allergy Swelling Verified 01/01/18 01:20 Review of Systems ROS Statement: Those systems with pertinent positive or pertinent negative responses have been documented in the HPI. Limitations: ROS unobtainable due to patients medical condition Past Medical History Past Medical History: Asthma, Cancer, Deep Vein Thrombosis (DVT), Seizure Disorder Additional Past Medical History / Comment(s): ALL History of Any Multi-Drug Resistant Organisms: None Reported Past Surgical History: No Surgical Hx Reported Additional Past Surgical History / Comment(s): Bone marrow biopsies, port placement x2 2006, 2008 Past Anesthesia/Blood Transfusion Reactions: No Reported Reaction Past Psychological History: Anxiety Smoking Status: Current every day smoker Past Alcohol Use History: None Reported, Occasional Past Drug Use History: Heroin, IV Drug Use, Methamphetamine - Past Family History Mother Family Medical History: No Reported History General Exam Limitations: altered mental status (Patient uncooperative with exam) General appearance: alert, in no apparent distress Head exam: Present: atraumatic, normocephalic Eye exam: Present: PERRL, EOMI. Absent: scleral icterus ENT exam: Present: mucous membranes moist Neck exam: Present: full ROM Respiratory exam: Absent: respiratory distress Cardiovascular Exam: Present: regular rate, normal rhythm GI/Abdominal exam: Present: soft. Absent: distended, tenderness, guarding, rebound, rigid Rectal exam: Present: deferred External exam: Present: normal external exam Extremities exam: Present: full ROM (Full range of motion of lower extremities, patient was able to move her upper extremities but limited motion was limited by handcuffs). Absent: pedal edema Neurological exam: Present: alert, oriented X3, normal gait Psychiatric exam: Present: agitated Skin exam: Present: warm Course Vital Signs 01/01/18 01:14 Temperature 97.2 F L Pulse Rate 88 Respiratory 18 Rate Blood Pressure 106/55 O2 Sat by Pulse 100 Oximetry Medical Decision Making - Medical Decision Making The patient was seen and evaluated, history was obtained from the patient and EMS and police On initial evaluation the patient was laying on the bed, she had her head turned. She would not cooperate. I stated aloud that we would need to undress the patient to facilitate a full evaluation, when her leg things were cut the patient became awake and agitated. Repeatedly asking "What the fuck are you doing" I advised the patient that if she is not awake, alert and oriented that we needed to pursue a medical evaluation for altered mental status. Patient then stated that she would like to refuse any further medical evaluation. She was able to provide her full name, date of she was able to identify her location and [facility] emergency department, she was aware that she was in police custody, she is aware of the month and year though she states she didn't know the date because she doesn't care and doesn't have a job. Patient is hemodynamically stable, she has normal vital signs. She has no obvious signs of injury. Patient does not consent to a workup. At this time my medical screening exam identifies no acute life-threatening problems. The patient is medically cleared for discharge with police. Disposition Clinical Impression: Agitation Disposition: HOME SELF-CARE Condition: Good Instructions: Polysubstance Abuse (ED) Is patient prescribed a controlled substance at d/c from ED?: No Referrals: Isabella Garrett III, MD [Primary Care Provider] - 1-2 days Time of Disposition: 01:16
[2018-01-01 01:20] VITALS: BP 106/55; PULSE 88; RESP 18; TEMP 97.2
== END 2018-01-01 01:20 | disposition home or self-care (01) ==
LOC: EC 01:07
DX: R45.1 Restlessness and agitation (principal); R41.82 Altered mental status, unspecified; F17.200 Nicotine dependence, unspecified, uncomplicated; Z85.6 Personal history of leukemia; Z91.030 Bee allergy status; Z88.0 Allergy status to penicillin; Z91.018 Allergy to other foods; Z88.5 Allergy status to narcotic agent
CPT/HCPCS: 99284

== ENCOUNTER 2018-02-12 03:47 | Emergency (ER) | payer OTHER ==
[2018-02-12 03:56] VITALS: BP 124/58; PULSE 83; RESP 20; TEMP 98.3
--- NOTE | 2018-02-12 04:19 | ED ---
General Adult HPI - General Chief complaint: Nausea/Vomiting/Diarrhea Stated complaint: NVD Time Seen by Provider: 02/12/18 04:02 Source: patient Mode of arrival: ambulatory Limitations: no limitations - History of Present Illness Initial comments: Evy Hoover is a 27-year-old female with a very extensive past medical history most significant for IV narcotic drug abuse. Patient presents the emergency department today for evaluation of 3 days of nausea, occasional vomiting, and diarrhea as well as chills and generalized malaise. Patient reports that since February of last year she has been using IV heroin, Suboxone, methamphetamines and amphetamines. Patient reports that she has made the decision to get clean, and has been without any intoxicants for one week. Patient reports that approximately 3 days ago she began feeling generalized malaise, all over body aches, chills, nausea and diarrhea. Patient reports that the symptoms have persisted for 3 days and this morning she couldn't sleep because of feeling unwell so she came to the ER for evaluation. The patient states that she began using heroin when she was only 9 years old. She went to rehab at the age of 19 and states that she was clean for a number of years before relapsing last year. She reports that in the past year she's had multiple complications from her IV drug abuse including abscess formation requiring surgical interventions patient states that she is scared herself because of her IV drug use and now wants to be clean. Patient denies any suspicious food intake or known sick contacts. She reports that she's been able to drink fluids and hold them down without difficulty. Patient also states that she is scheduled to see her oncologist today for reevaluation. - Related Data Previous Rx's Medication Instructions Recorded Dicyclomine [Bentyl] 10 mg PO QID #12 capsule 02/12/18 Dicyclomine [Bentyl] 10 mg PO QID #12 capsule 02/12/18 Ondansetron [Zofran ODT] 4 mg PO Q8HR #12 tab 02/12/18 Ondansetron [Zofran ODT] 4 mg PO Q8HR #12 tab 02/12/18 Allergies Allergy/AdvReac Type Severity Reaction Status Date / Time asparaginase Allergy Rash/Hives Verified 02/12/18 03:56 bee venom protein (honey bee) Allergy Unknown Verified 02/12/18 03:56 Coconut Allergy Anaphylaxis Verified 02/12/18 03:56 meperidine HCl [From Demerol] Allergy Anaphylaxis Verified 02/12/18 03:56 Penicillins Allergy Swelling Verified 02/12/18 03:56 Review of Systems ROS Statement: Those systems with pertinent positive or pertinent negative responses have been documented in the HPI. ROS Other: All systems not noted in ROS Statement are negative. Past Medical History Past Medical History: Asthma, Cancer, Deep Vein Thrombosis (DVT), Seizure Disorder Additional Past Medical History / Comment(s): ALL History of Any Multi-Drug Resistant Organisms: None Reported Past Surgical History: No Surgical Hx Reported Additional Past Surgical History / Comment(s): Bone marrow biopsies, port placement x2 2006, 2008 Past Anesthesia/Blood Transfusion Reactions: No Reported Reaction Past Psychological History: Anxiety Smoking Status: Current every day smoker Past Alcohol Use History: None Reported, Occasional Past Drug Use History: Heroin, IV Drug Use, Methamphetamine - Past Family History Mother Family Medical History: No Reported History General Exam - General Exam Comments Initial Comments: GENERAL: Well-developed, well-nourished Unkempt appearance HENT: Normocephalic, Atraumatic. Very poor dentition with multiple dental caries EYES: The sclera were anicteric and conjunctiva were pink and moist. Extraocular movements were intact and pupils were equal round and reactive to light. Eyelids were unremarkable. PULMONARY: Mild expiratory wheezing, patient does have a history of asthma and is in every day smoker CARDIOVASCULAR: There is a regular rate and rhythm without any murmurs gallops or rubs. ABDOMEN: Soft and nontender with normal bowel sounds. SKIN: Skin is clear with no lesions or rashes and otherwise unremarkable. No Janeway lesion or Alex nodes NEUROLOGIC: Patient is alert and oriented x3. Cranial nerves II through XII are grossly intact. Motor and sensory are also intact. Normal speech, volume and content. Symmetrical smile. MUSCULOSKELETAL: Normal extremities with adequate strength and full range of motion. No lower extremity swelling or edema. No calf tenderness. LYMPHATICS: No significant lymphadenopathy is noted PSYCHIATRIC: Depressed, no suicidal or homicidal ideation Limitations: no limitations Limitations: no limitations Course Vital Signs 02/12/18 03:54 Temperature 98.3 F Pulse Rate 83 Respiratory 20 Rate Blood Pressure 124/58 O2 Sat by Pulse 100 Oximetry Medical Decision Making - Medical Decision Making The patient was seen and evaluated, history was obtained from patient and review of medical record She discontinued use of IV narcotics, Suboxone, meth and stimulant pills last week. Patient has since felt very unwell. Generalized malaise. She does report some shaking chills and piloerection as well as development of diarrhea and nausea though she has been able to drink fluids and does not appear dehydrated. The patient's symptoms are secondary to acute withdrawal. This was discussed with the patient who agrees. Patient has been through withdrawal the past. She states that in the past she did withdraw inpatient and was treated symptomatically never this severe. She states that she is scheduled to go into rehab on February 17 and ring needs to remain clean until that time. The patient does go to Narcotics Anonymous meetings though she has been resistant to attending them recently after her most recent relapse she does express some embarrassment. History and physical exam are consistent with acute narcotic withdrawal. I will treat symptomatically. I offered the patient IM versus by mouth Bentyl and Zofran. Patient would like to avoid IM injections she finds them painful therefore by mouth medications were ordered and given. Patient was reevaluated after by mouth medications reports significant improvement in her nausea. She' s had no bowel movements during her 2 hours here in the emergency department. She is agreeable to plan for discharge home. Patient is scheduled to see her oncologist later today for follow-up evaluation. All questions pertaining care were answered best my ability return parameters were discussed and patient was discharged home - Lab Data Lab Results 02/12/18 02/12/18 Range/Units 04:44 04:44 Urine Color Light Yellow Urine Appearance Clear (Clear) Urine pH 5.0 (5.0-8.0) Ur Specific [place] 1.006 (1.001-1.035) Urine Protein Negative (Negative) Urine Glucose (UA) Negative (Negative) Urine Ketones Negative (Negative) Urine Blood Negative (Negative) Urine Nitrite Negative (Negative) Urine Bilirubin Negative (Negative) Urine Urobilinogen <2.0 (<2.0) mg/dL Ur Leukocyte Esterase Moderate H (Negative) Urine RBC <1 (0-5) /hpf Urine WBC 13 H (0-5) /hpf Ur Squamous Epith Cells 1 (0-4) /hpf Urine Mucus Rare H (None) /hpf Urine HCG, Qual Not Detected (Not Detectd) Disposition Clinical Impression: Nausea vomiting and diarrhea Disposition: HOME SELF-CARE Instructions: Acute Nausea and Vomiting (ED), Opioid Withdrawal (ED), Narcotic Withdrawal (ED) Prescriptions: Dicyclomine [Bentyl] 10 mg PO QID #12 capsule Dicyclomine [Bentyl] 10 mg PO QID #12 capsule Ondansetron [Zofran ODT] 4 mg PO Q8HR #12 tab Ondansetron [Zofran ODT] 4 mg PO Q8HR #12 tab Is patient prescribed a controlled substance at d/c from ED?: No Referrals: Isabella Garrett III, MD [Primary Care Provider] - 1-2 days Guanaco Roach MD [STAFF PHYSICIAN] - 1-2 days Time of Disposition: 05:02
[2018-02-12] MEDS ORDERED: ONDANSETRON 4 MG ODT STARTER PACK 2 TAB BTL PO STA (04:38)
[2018-02-12] MEDS ORDERED: DICYCLOMINE 10 MG CAP PO STA (04:38)
[2018-02-12 05:01] LABS: Appearance,Urine Clear (Clear); Bilirubin,Urine Negative (Negative); Blood,Urine Negative (Negative); Color,Urine Light Yellow; Glucose,Urine (UA) Negative (Negative); Ketones,Urine Negative (Negative); Leukocyte Esterase,Urine Moderate (Negative); Mucus,Urine Rare /hpf; Nitrite,Urine Negative (Negative); Protein,Urine Negative (Negative); RBC,Urine <1 /hpf (0-5); Specific Gravity,Urine 1.006 (1.001-1.035); Squamous Epithelial Cell,Urine 1 /hpf (0-4); Urobilinogen,Urine <2.0 mg/dL (<2.0); WBC,Urine 13 /hpf (0-5)
== END 2018-02-12 05:12 | disposition home or self-care (01) ==
LOC: EC 03:47
DX: R11.2 Nausea with vomiting, unspecified (principal); R19.7 Diarrhea, unspecified; R53.81 Other malaise; F17.200 Nicotine dependence, unspecified, uncomplicated; Z88.0 Allergy status to penicillin; Z88.5 Allergy status to narcotic agent; Z91.030 Bee allergy status; Z91.018 Allergy to other foods; Z88.8 Allergy status to other drugs, medicaments and biological substances
CPT/HCPCS: 81001; 81025; 99284

== ENCOUNTER 2020-04-02 13:02 | Inpatient (IN) | payer OTHER ==
[2020-04-02] MEDS ORDERED: SODIUM CHLORIDE 0.9% 1,000 ML IV STA ×2 (13:24→18:55)
[2020-04-02] MEDS ORDERED: methylPREDNISolone SOD SUCCI 125 MG/2 ML VIAL IV STA (13:24)
[2020-04-02] MEDS ORDERED: ALBUTEROL HFA INHALER INHALATION STA (13:24)
[2020-04-02] MEDS ORDERED: VANCOMYCIN IV PER PHARMACY 1 EACH MISC MISCELLANE PRN (13:26)
--- NOTE | 2020-04-02 13:55 | XR ---
EXAMINATION TYPE: XR chest 2V DATE OF EXAM: 04/02/2020 COMPARISON: 08/18/2017 TECHNIQUE: PA and lateral views submitted. HISTORY: Difficulty breathing FINDINGS: Biapical pleural thickening and areas of consolidation and pleural effusion bilaterally. Heart size s table. No pneumothorax. Hypertrophic change of the spine. Mediastinum is somewhat prominent which is nonspecific possibly could relate to adenopathy. IMPRESSION: 1. Diffuse bilateral pleural-parenchymal changes correlate for diffuse pneumonia. CHF not excluded.
[2020-04-02] MEDS ORDERED: VANCOMYCIN 750 MG in SODIUM CHLORIDE 0.9% 250 ML IVPB ONE (14:00)
[2020-04-02] MEDS ORDERED: AZITHROMYCIN 500 MG in SODIUM CHLORIDE 0.9% 250 ML IVPB STA (14:02)
--- NOTE | 2020-04-02 14:26 | ED ---
General Adult HPI - General Chief complaint: Shortness of Breath Stated complaint: SOB Time Seen by Provider: 04/02/20 13:20 Source: patient, RN notes reviewed, old records reviewed Mode of arrival: ambulatory Limitations: no limitations - History of Present Illness Initial comments: 29-year-old female presenting for evaluation of chest pain, dyspnea, cough. Patient has previous history of IV drug abuse and states that she did stop using approximately 2 weeks ago. She was seen at an outside hospital in [place] for difficulty breathing and was told not to leave the hospital but she left AGAINST MEDICAL ADVICE and is presenting to this emergency Department with cough, dyspnea. She is uncertain of her exact diagnosis but states she had an infec tion in her lungs as well as a collapsed lung. - Related Data Home Medications Medication Instructions Recorded Confirmed No Known Home Medications 04/02/20 04/02/20 Allergies Allergy/AdvReac Type Severity Reaction Status Date / Time asparaginase Allergy Rash/Hives Verified 04/02/20 14:30 bee venom protein (honey bee) Allergy Unknown Verified 04/02/20 14:30 Coconut Allergy Anaphylaxis Verified 04/02/20 14:30 Iodinated Contrast Media Allergy Rash/Hives Unverified 04/02/20 17:02 meperidine HCl [From Demerol] Allergy Anaphylaxis Verified 04/02/20 14:30 Penicillins Allergy Swelling Verified 04/02/20 14:30 Review of Systems ROS Statement: Those systems with pertinent positive or pertinent negative responses have been documented in the HPI. ROS Other: All systems not noted in ROS Statement are negative. Past Medical History Past Medical History: Asthma, Cancer, Deep Vein Thrombosis (DVT), Seizure Disorder Additional Past Medical History / Comment(s): ALL History of Any Multi-Drug Resistant Organisms: None Reported Past Surgical History: No Surgical Hx Reported Additional Past Surgical History / Comment(s): Bone marrow biopsies, port placement x2 2006, 2008 Past Anesthesia/Blood Transfusion Reactions: No Reported Reaction Past Psychological History: Anxiety Smoking Status: Current every day smoker Past Alcohol Use History: None Reported, Occasional Past Drug Use History: Heroin, IV Drug Use, Methamphetamine - Past Family History Mother Family Medical History: No Reported History General Exam Limitations: no limitations General appearance: alert, in distress Head exam: Present: atraumatic, normocephalic Eye exam: Present: normal appearance, PERRL ENT exam: Present: mucous membranes dry Neck exam: Present: normal inspection. Absent: tenderness Respiratory exam: Present: respiratory distress, wheezes, rhonchi, decreased breath sounds Cardiovascular Exam: Present: normal rhythm, tachycardia GI/Abdominal exam: Present: soft. Absent: distended, tenderness, guarding Extremities exam: Present: normal inspection, normal capillary refill. Absent: pedal edema Neurological exam: Present: alert, oriented X3 Psychiatric exam: Present: normal affect, normal mood Skin exam: Present: warm, dry, intact. Absent: cyanosis, diaphoretic Course Vital Signs 04/02/20 04/02/20 04/02/20 13:04 13:26 14:57 Temperature 97.4 F L Pulse Rate 135 H 90 105 H Respiratory 24 22 20 Rate Blood Pressure 101/60 98/68 99/70 O2 Sat by Pulse 88 L 98 96 Oximetry 04/02/20 04/02/20 04/02/20 16:00 17:00 17:10 Temperature Pulse Rate 101 H 134 H 130 H Respiratory 18 32 H 32 H Rate Blood Pressure 95/78 75/43 87/62 O2 Sat by Pulse 99 99 99 Oximetry 04/02/20 04/02/20 04/02/20 17:22 17:30 17:40 Temperature Pulse Rate 118 H 123 H 108 H Respiratory 32 H 24 Rate Blood Pressure 85/45 97/66 O2 Sat by Pulse 100 100 Oximetry 04/02/20 04/02/20 17:45 18:00 Temperature Pulse Rate 109 H 100 Respiratory 22 Rate Blood Pressure 96/53 O2 Sat by Pulse 100 Oximetry - Reevaluation(s) Reevaluation #1: 04/02/20 17:43 PATIENT HAD ANAPHYLACTIC REACTION AFTER ct ANGIOGRAPHY. sHE WAS TACHYCARDIC TOBY UND 150, HYPOTENSIVE WITH A BLOOD PRESSURE IN THE 50S SYSTOLIC, SHE HAD HYPOXIA AND INCREASED WORK OF BREATHING. sHE WAS GIVEN bENADRYL, pEPCID, AND EPINEPHRINE WELL ALBUTEROL AND aTROVENT. sHE HAD IMPROVEMENT IN BLOOD PRESSURE WITH HYDRATION AND EPINEPHRINE hER OXYGENATION IMPROVED WITH NO NREBREATHER. EKG Findings - EKG Comments: EKG Findings:: sinus tachycardia, right atrial enlargement, artifact in V1 and V2, no ST segment elevation, rate of 110, CA interval 148, QRS duration 70, QTC 441 Medical Decision Making - Medical Decision Making 29-year-old female presenting with cough and dyspnea. Patient is hypoxic, tachycardic upon arrival. Workup is initiated, chest x-ray shows multifocal pneumonia. Normal white blood cell count, hemoglobin 9.0 with no recent for comparison. CT angiography is performed which is negative for PE but does show multifocal pneumonia concerning for coronavirus. She patient is kept in isolation precaution although her coronavirus testing is negative as well as influenza. Echo was ordered. She did have an anaphylactic reaction to her CT angiography. She was given steroids, Benadryl, Pepcid, and epinephrine. She had resolution in symptoms and stabilized blood pressure. She has been admitted to Dr. Soliz who is aware of the patient with pulmonology on consult. - Lab Data Result diagrams: 04/02/20 14:55 04/02/20 14:55 Lab Results 04/02/20 04/02/20 04/02/20 Range/Units 14:21 14:55 14:55 WBC 9.0 (3.8-10.6) k/uL RBC 4.18 (3.80-5.40) m/uL Hgb 9.0 L (11.4-16.0) gm/dL Hct 30.5 L (34.0-46.0) % MCV 72.9 L (80.0-100.0) fL MCH 21.6 L (25.0-35.0) pg MCHC 29.6 L (31.0-37.0) g/dL RDW 16.2 H (11.5-15.5) % Plt Count 460 H (150-450) k/uL MPV 8.0 Neutrophils % 59 % Lymphocytes % 29 % Monocytes % 6 % Eosinophils % 4 % Basophils % 1 % Neutrophils # 5.3 (1.3-7.7) k/uL Lymphocytes # 2.6 (1.0-4.8) k/uL Monocytes # 0.5 (0-1.0) k/uL Eosinophils # 0.4 (0-0.7) k/uL Basophils # 0.0 (0-0.2) k/uL Hypochromasia Marked Poikilocytosis Slight Anisocytosis Slight Microcytosis Moderate PT 9.7 (9.0-12.0) sec INR 0.9 (<1.2) APTT 22.3 (22.0-30.0) sec Sodium (137-145) mmol/L Potassium (3.5-5.1) mmol/L Chloride (98-107) mmol/L Carbon Dioxide (22-30) mmol/L Anion Gap mmol/L BUN (7-17) mg/dL Creatinine (0.52-1.04) mg/dL Est GFR (CKD-EPI)AfAm (>60 ml/min/1.73 sqM) Est GFR (CKD-EPI)NonAf (>60 ml/min/1.73 sqM) Glucose (74-99) mg/dL Plasma Lactic Acid Blayne (0.7-2.0) mmol/L Calcium (8.4-10.2) mg/dL Magnesium (1.6-2.3) mg/dL Total Bilirubin (0.2-1.3) mg/dL AST (14-36) U/L ALT (4-34) U/L Alkaline Phosphatase (38-126) U/L Troponin I (0.000-0.034) ng/mL Total Protein (6.3-8.2) g/dL Albumin (3.5-5.0) g/dL Coronavirus (PCR) Not Detected (Not Detectd) Influenza Type A RNA Not Detected (Not Detectd) Influenza Type B (PCR) Not Detected (Not Detectd) 04/02/20 04/02/20 04/02/20 Range/Units 14:55 14:55 14:55 WBC (3.8-10.6) k/uL RBC (3.80-5.40) m/uL Hgb (11.4-16.0) gm/dL Hct (34.0-46.0) % MCV (80.0-100.0) fL MCH (25.0-35.0) pg MCHC (31.0-37.0) g/dL RDW (11.5-15.5) % Plt Count (150-450) k/uL MPV Neutrophils % % Lymphocytes % % Monocytes % % Eosinophils % % Basophils % % Neutrophils # (1.3-7.7) k/uL Lymphocytes # (1.0-4.8) k/uL Monocytes # (0-1.0) k/uL Eosinophils # (0-0.7) k/uL Basophils # (0-0.2) k/uL Hypochromasia Poikilocytosis Anisocytosis Microcytosis PT (9.0-12.0) sec INR (<1.2) APTT (22.0-30.0) sec Sodium 137 (137-145) mmol/L Potassium 4.4 (3.5-5.1) mmol/L Chloride 102 (98-107) mmol/L Carbon Dioxide 29 (22-30) mmol/L Anion Gap 6 mmol/L BUN 18 H (7-17) mg/dL Creatinine 0.58 (0.52-1.04) mg/dL Est GFR (CKD-EPI)AfAm >90 (>60 ml/min/1.73 sqM) Est GFR (CKD-EPI)NonAf >90 (>60 ml/min/1.73 sqM) Glucose 92 (74-99) mg/dL Plasma Lactic Acid Blayne 0.8 (0.7-2.0) mmol/L Calcium 9.2 (8.4-10.2) mg/dL Magnesium 2.0 (1.6-2.3) mg/dL Total Bilirubin 0.4 (0.2-1.3) mg/dL AST 29 (14-36) U/L ALT 16 (4-34) U/L Alkaline Phosphatase 99 (38-126) U/L Troponin I <0.012 (0.000-0.034) ng/mL Total Protein 7.6 (6.3-8.2) g/dL Albumin 3.9 (3.5-5.0) g/dL Coronavirus (PCR) (Not Detectd) Influenza Type A RNA (Not Detectd) Influenza Type B (PCR) (Not Detectd) Critical Care Time Critical Care Time: Yes Total Critical Care Time: 35 Disposition Clinical Impression: Asthma with acute exacerbation, Sepsis, Pneumonia Disposition: ADMITTED IP TO THIS [facility] Condition: Serious Is patient prescribed a controlled substance at d/c from ED?: No Decision to Admit Reason: Admit from EC Decision Date: 04/02/20 Decision Time: 17:44
[2020-04-02 15:05] LABS: Anisocytosis Slight; Basophils % (A) 1 %; Eosinophils # (A) 0.4 k/uL (0-0.7); Eosinophils % (A) 4 %; HCT 30.5 % (34.0-46.0); Hypochromasia Marked; Lymphocytes # (A) 2.6 k/uL (1.0-4.8); Lymphocytes % (A) 29 %; MCH 21.6 pg (25.0-35.0); MCHC 29.6 g/dL (31.0-37.0); MCV 72.9 fL (80.0-100.0); Microcytosis Moderate; Monocytes # (A) 0.5 k/uL (0-1.0); Monocytes % (A) 6 %; Neutrophils # (A) 5.3 k/uL (1.3-7.7); Neutrophils % (A) 59 %; Platelet Count 460 k/uL (150-450); Poikilocytosis Slight; RBC 4.18 m/uL (3.80-5.40); RDW 16.2 % (11.5-15.5)
[2020-04-02 15:11] LABS: SARS-CoV-2 RNA Rapid Abbott Not Detected (Not Detectd)
[2020-04-02 15:18] LABS: ALT 16 U/L (4-34); AST 29 U/L (14-36); African American GFR (CKD) >90 (>60 ml/min/1.73 sqM); Albumin 3.9 g/dL (3.5-5.0); Alkaline Phosphatase 99 U/L (38-126); Anion Gap 6 mmol/L; Blood Urea Nitrogen 18 mg/dL (7-17); Calcium 9.2 mg/dL (8.4-10.2); Carbon Dioxide 29 mmol/L (22-30); Chloride 102 mmol/L (98-107); Glucose 92 mg/dL (74-99); Non-African American GFR(CKD) >90 (>60 ml/min/1.73 sqM); Potassium 4.4 mmol/L (3.5-5.1); Sodium 137 mmol/L (137-145); Total Bilirubin 0.4 mg/dL (0.2-1.3); Total Protein 7.6 g/dL (6.3-8.2)
[2020-04-02 15:20] LABS: INR 0.9 (<1.2); Partial Thromboplastin Time 22.3 sec (22.0-30.0); Prothrombin Time 9.7 sec (9.0-12.0)
[2020-04-02] MEDS ORDERED: EPINEPHrine 1 MG/ML 1 ML AMP IM STA (17:12)
[2020-04-02] MEDS ORDERED: diphenhydrAMINE 50 MG/ML 1 ML VIAL IVP STA (17:16)
[2020-04-02] MEDS ORDERED: FAMOTIDINE 20 MG/2 ML VIAL IV STA (17:16)
[2020-04-02] MEDS ORDERED: IPRATROPIUM 0.5 MG/2.5 ML NEBU INHALATION STA (17:17)
--- NOTE | 2020-04-02 17:30 | CT ---
EXAMINATION TYPE: CT angio chest DATE OF EXAM: 04/02/2020 5:07 PM COMPARISON: Radiograph 04/02/2020. HISTORY: Pneumonia, possible PE. Difficulty breathing x couple months. CT DLP: 155.6 mGycm Automated exposure control for dose reduction was used. CONTRAST: CTA scan of the thorax is performed with IV Contrast, patient injected with 100 mL of Isovue 370, pul monary embolism protocol. MIP images are created and reviewed. FINDINGS: LUNGS: There is bilateral diffuse moderate patchy groundglass opacities with branching pattern. There are small pleural effusions. No pneumothorax. There is background of mild to moderate mixed chronic interstitial and emphysematous disease. There is associated traction bronchiectasis. There is a 1.2 c m nodular opacity with central cavitation in the superior right lower lobe. MEDIASTINUM: There is satisfactory enhancement of the pulmonary artery and its branches, there is no CT evidence for pulmonary embolism. There are no greater than 1 cm hilar or mediastinal lymph nodes. No pericardial effusion is seen. OTHER: No additional significant abnormality is seen. IMPRESSION: NO EVIDENCE OF PULMONARY EMBOLISM. BILATERAL MODERATE PATCHY GROUNDGLASS OPACITIES, CONCERNING FOR COVID PNEUMONIA. RECOMMEND CLINICAL C ORRELATION. 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 Age-indeterminate 1.2 cm right lower lobe nodule. Attention on follow-up after adequate treatment.
[2020-04-02] MEDS ORDERED: IPRATROPIUM-ALBUTEROL 3 ML NEB INHALATION PRN (17:41)
[2020-04-02] MEDS: SODIUM CHLORIDE 0.9% 1,000 ML IV SCH (18:57)
[2020-04-02] MEDS: methylPREDNISolone SOD SUCCI 125 MG/2 ML VIAL IV SCH (19:30)
[2020-04-02] MEDS: IPRATROPIUM-ALBUTEROL 3 ML NEB INHALATION SCH (19:37)
[2020-04-02] MEDS ORDERED: ALBUTEROL NEB (CONC) 2.5 MG/0.5 ML INHALATION SCH (20:00)
--- NOTE | 2020-04-02 21:32 | P.HPIM ---
History of Present Illness H&P Date: 04/02/20 Chief Complaint: Shortness of Breath Patient is a 29-year-old female with a known history of CLL currently in remission, history of DVT, seizure disorder and asthma, anxiety and history of IVDU last used 2 weeks ago came to ER with the complaints of cough, dyspnea and chest pain with cough. Patient does have history of IV drug abuse and stopped using approximately 2 weeks ago. Patient was seen at outside hospital in [place] for difficulty in breathing. Patient left AGAINST MEDICAL ADVICE. Patient came to [place] to see her family and has been having worsening symptoms again with cough and dyspnea. Chest x-ray showed diffuse bilateral pleural parenchymal changes. Laboratory data showed WBC 9.0, hemoglobin 9.0, MCV 72.9 and platelets 460 Sodium 137, potassium 4.4, BUN 18 and creatinine 0.58 Liver enzymes AST 29, ALT 16 and alk phos 99 Troponin times one 0.012 Coronavirus PCR and influenza A and B negative. CT angiogram showed no evidence of pulmonary embolism. Bilateral moderate patchy groundglass opacities concerning for Covid pneumonia. Recommend clinical correlation. 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 Age-indeterminate 1.2 cm right lung lower lobe nodule. She did have an anaphylactic reaction to her CT angiography. She was given steroids, Benadryl, Pepcid, and epinephrine. She had resolution in symptoms and stabilized blood pressure. Patient is currently on 2 L via nasal cannula with pulse ox 100%. Patient was saturating at 88% on room air on admission and was tachycardic. EKG showed sinus tachycardia. Review of Systems Constitutional: Patient denies any fever or chills . generalized weakness . no weight loss. Abdomen: Patient denied nausea vomiting and diarrhea and abdominal pain. Cardiovascular: Patient denies any chest pain or short of breath no palpitations. Respiratory: cough without sputum production. + shortness of breath Neurologic: Patient denied any numbness or tingling headache. Musculoskeletal: Patient denies any complaints of joint swelling or deformity. Skin: Negative Psychiatric: Negative Endocrine: No heat or cold intolerance. No recent weight gain. Genitourinary: No dysuria or hematuria. All other 14 point ROS negative except the above Past Medical History Past Medical History: Asthma, Cancer, Deep Vein Thrombosis (DVT), Seizure Disorder Additional Past Medical History / Comment(s): ALL History of Any Multi-Drug Resistant Organisms: None Reported Past Surgical History: No Surgical Hx Reported Additional Past Surgical History / Comment(s): Bone marrow biopsies, port placement x2 2006, 2008 Past Anesthesia/Blood Transfusion Reactions: No Reported Reaction Past Psychological History: Anxiety Smoking Status: Current every day smoker Past Alcohol Use History: None Reported, Occasional Past Drug Use History: Heroin, IV Drug Use, Methamphetamine - Past Family History Mother Family Medical History: No Reported History Medications and Allergies Home Medications Medication Instructions Recorded Confirmed Type No Known Home Medications 04/02/20 04/02/20 History Allergies Allergy/AdvReac Type Severity Reaction Status Date / Time asparaginase Allergy Rash/Hives Verified 04/02/20 18:55 bee venom protein (honey bee) Allergy Unknown Verified 04/02/20 18:55 Coconut Allergy Anaphylaxis Verified 04/02/20 18:55 Iodinated Contrast Media Allergy Anaphylaxis Verified 04/02/20 18:55 meperidine HCl [From Demerol] Allergy Anaphylaxis Verified 04/02/20 18:55 Penicillins Allergy Swelling Verified 04/02/20 18:55 Physical Exam Vitals: Vital Signs Temp Pulse Resp BP Pulse Ox 04/02/20 20:15 98.1 F 92 18 93/49 100 04/02/20 19:46 93 16 04/02/20 19:37 96 16 04/02/20 18:50 100 18 94/61 100 04/02/20 18:00 100 22 96/53 100 04/02/20 17:45 109 H 04/02/20 17:40 108 H 24 97/66 100 04/02/20 17:30 123 H 32 H 85/45 100 04/02/20 17:22 118 H 04/02/20 17:10 130 H 32 H 87/62 99 04/02/20 17:00 134 H 32 H 75/43 99 04/02/20 16:00 101 H 18 95/78 99 04/02/20 14:57 105 H 20 99/70 96 04/02/20 13:26 90 22 98/68 98 04/02/20 13:04 97.4 F L 135 H 24 101/60 88 L Intake and Output 04/02/20 04/02/20 04/02/20 06:59 14:59 22:59 Other: Weight 45.813 kg PHYSICAL EXAMINATION: Patient is lying in the bed comfortably, no acute distress, awake alert and oriented.. HEENT: Normocephalic. Neck is supple. Pupils reactive. Nostrils clear. Oral cavity is moist. Ears reveal no drainage. Neck reveals no JVD, carotid bruits, or thyromegaly. CHEST EXAMINATION: Trachea is central. Symmetrical expansion.bilateral diminished air entry and wheezing.n. CARDIAC: Normal S1, S2 with no gallops. No murmurs ABDOMEN: Soft. Bowel sounds normal. No organomegaly. No abdominal bruits. Extremities: reveal no edema. No clubbing or cyanosis Neurologically awake, alert, oriented x3 with well-coordinated movements. No focal deficits noted Skin: No rash or skin lesions. Psychiatric: Coperative. Nonsuicidal, anxious Musculoskeletal: No joint swelling or deformity. Normal range of motion. Results CBC & Chem 7: 04/02/20 14:55 04/02/20 14:55 Labs: Abnormal Lab Results - Last 24 Hours (Table) 04/02/20 04/02/20 Range/Units 14:55 14:55 Hgb 9.0 L (11.4-16.0) gm/dL Hct 30.5 L (34.0-46.0) % MCV 72.9 L (80.0-100.0) fL MCH 21.6 L (25.0-35.0) pg MCHC 29.6 L (31.0-37.0) g/dL RDW 16.2 H (11.5-15.5) % Plt Count 460 H (150-450) k/uL BUN 18 H (7-17) mg/dL Thrombosis Risk Factor Assmnt - DVT/VTE Prophylaxis DVT/VTE Prophylaxis: Pharmacologic Prophylaxis ordered Assessment and Plan Assessment: Bilateral patchy groundglass opacities with suspected COVID-19 pneumonia. Acute hypoxic respiratory failure requiring oxygen via nasal cannula. Acute asthma exacerbation Anaphylactic reaction to iodinated contrast. Blood pressure is stabilized now. History of ALL currently in remission. Anxiety IV drug use. Last used 2 weeks ago Currently everyday smoker DVT prophylaxis with subcu Lovenox. Plan: Patient will be continued IV steroids and breathing treatments. COVID-19 PCR and influenza PCR is negative. Continue with oxygen therapy and follow-up closely. Inflammatory markers for COVID-19 will be ordered. Pulmonary was consulted. Further recommendations based on clinical course. Time with Patient: Greater than 30
--- NOTE | 2020-04-02 23:57 | XR ---
EXAMINATION TYPE: XR chest 1V portable DATE OF EXAM: 04/02/2020 COMPARISON: Today HISTORY: Difficulty breathing TECHNIQUE: FINDINGS: There is coarse interstitial infiltrate throughout the lungs. There is pleural thickening o n the left and right lateral chest wall. There are chest leads. There is some blunting of the costoph renic angles. Heart size is normal. There is no obvious heart failure. IMPRESSION: Extensive pleural and pulmonary fibrotic changes unchanged compared to exam earlier today . No obvious heart failure.
[2020-04-03] MEDS: SODIUM CHLORIDE 0.9% 1,000 ML IV SCH ×3 (01:01→13:24)
[2020-04-03] MEDS: methylPREDNISolone SOD SUCCI 125 MG/2 ML VIAL IV SCH ×4 (01:17→16:36)
[2020-04-03] MEDS ORDERED: VANCOMYCIN 750 MG in SODIUM CHLORIDE 0.9% 250 ML IVPB SCH (04:00)
[2020-04-03 06:20] LABS: Glucose,Whole Blood 138 mg/dL (75-99)
[2020-04-03] MEDS: INSULIN ASPART (NovoLOG) 100 UNIT/ML VIAL SQ SCH ×4 (07:00→21:53)
[2020-04-03] MEDS: IPRATROPIUM-ALBUTEROL 3 ML NEB INHALATION SCH ×4 (07:26→19:01)
--- NOTE | 2020-04-03 08:48 | ECHOF ---
Referral Reason:dyspnea, chest pain, IV drugs MEASUREMENTS -------- HEIGHT: 152.4 cm WEIGHT: 45.8 kg BP: RVIDd: 1.8 cm (< 3.3) IVSd: 1.1 cm (0.6 - 1.1) LVIDd: 2.6 cm (3.9 - 5.3) LVPWd: 1.2 cm (0.6 - 1.1) IVSs: 1.4 cm LVIDs: 2.0 cm LVPWs: 1.0 cm LA Diam: 2.1 cm (2.7 - 3.8) Ao Diam: 2.3 cm (2.0 - 3.7) MV EXCURSION: 22.736 mm (> 18.000) MV EF SLOPE: 287 mm/s (70 - 150) EPSS: 0.2 cm MV E Mateo: 1.30 m/s MV DecT: 138 ms MV A Mateo: 0.91 m/s MV E/A Ratio: 1.42 RAP: 5.00 mmHg RVSP: 22.91 mmHg FINDINGS -------- Resting tachycardia (HR>100bpm). This was a technically good study. LV size, wall thickness and systolic function are normal, with an EF greater than 55%. The left jake tricular size is normal. The right ventricle is normal in size. The left atrial size is normal. The right atrial size is normal. The aortic valve is trileaflet, and appears structurally normal. No aortic stenosis or regurgitation. Mild mitral annular calcification present. No mitral regurgitation. Mild tricuspid regurgitation present. Right ventricular systolic pressure is normal at < 35 mmHg. There is no pulmonic regurgitation present. The aortic root size is normal. There is no pericardial effusion. CONCLUSIONS -------- 1. Resting tachycardia (HR>100bpm). 2. This was a technically good study. 3. LV size, wall thickness and systolic function are normal, with an EF greater than 55%. 4. The left ventricular size is normal. 5. The right ventricle is normal in size. 6. The left atrial size is normal. 7. The right atrial size is normal. 8. Mild mitral annular calcification present. 9. No mitral regurgitation. 10. Mild tricuspid regurgitation present. 11. The aortic root size is normal. 12. There is no pericardial effusion. BID MANAGER: Johana Skinner RDCS
[2020-04-03] MEDS: ENOXAPARIN 40 MG/0.4 ML SYRINGE SQ SCH (09:29)
[2020-04-03] MEDS ORDERED: AZITHROMYCIN 500 MG TAB PO SCH (10:30)
[2020-04-03 11:19] LABS: Anisocytosis Slight; Basophils % (A) 0 %; Eosinophils % (A) 0 %; HGB 7.6 gm/dL (11.4-16.0); Hypochromasia Marked; Lymphocytes # (A) 1.1 k/uL (1.0-4.8); Lymphocytes % (A) 11 %; MCH 22.2 pg (25.0-35.0); MCV 76.4 fL (80.0-100.0); Mean Platelet Volume 6.8; Microcytosis Slight; Monocytes # (A) 0.2 k/uL (0-1.0); Monocytes % (A) 2 %; Neutrophils # (A) 8.6 k/uL (1.3-7.7); Neutrophils % (A) 87 %; Platelet Count 340 k/uL (150-450); RBC 3.41 m/uL (3.80-5.40); WBC 9.9 k/uL (3.8-10.6)
[2020-04-03 12:06] LABS: Glucose,Whole Blood 153 mg/dL (75-99)
[2020-04-03 12:08] LABS: African American GFR (CKD) >90 (>60 ml/min/1.73 sqM); Anion Gap 6 mmol/L; Blood Urea Nitrogen 15 mg/dL (7-17); C Reactive Protein 17.7 mg/L (<10.0); Calcium 8.7 mg/dL (8.4-10.2); Carbon Dioxide 21 mmol/L (22-30); Chloride 109 mmol/L (98-107); Glucose 157 mg/dL (74-99); LDH 597 U/L (313-618); Non-African American GFR(CKD) >90 (>60 ml/min/1.73 sqM); Potassium 4.4 mmol/L (3.5-5.1); Sodium 136 mmol/L (137-145)
[2020-04-03] MEDS: CEFEPIME 2 GM in SODIUM CHLORIDE 0.9% 100 ML IVPB SCH ×2 (13:23→21:53)
[2020-04-03] MEDS ORDERED: ONDANSETRON 4 MG/2 ML VIAL IVP PRN (15:08)
[2020-04-03 15:44] LABS: % Iron Saturation 2.06 (12.00-45.00); Ferritin 10.6 ng/mL (10.0-291.0); Iron 7 ug/dL (50-170); Total Iron Binding Capacity 339 ug/dL (228-460)
[2020-04-03] MEDS: guaiFENesin-Coden 100-10MG/5ML 10 ML CUP PO PRN ×2 (16:14→21:52)
[2020-04-03] MEDS: ACETAMINOPHEN TAB 325 MG TAB PO PRN (16:14)
[2020-04-03 16:31] LABS: Glucose,Whole Blood 208 mg/dL (75-99)
[2020-04-03] MEDS: VANCOMYCIN 750 MG in SODIUM CHLORIDE 0.9% 250 ML IVPB SCH (16:35)
--- NOTE | 2020-04-03 16:55 | P.CNPUL ---
History of Present Illness Consult date: 04/03/20 Reason for consult: pneumonia History of present illness: 29-year-old female patient, previous history of ALL back in 2006, treated with systemic chemotherapy and the patient was fully recovered and the patient currently is in remission. Patient is also known to have previous history of DVT, seizure disorder previous history of COPD/asthma. Her history is also positive for IV drug use and the patient utilizes her on and methamphetamine IV on a regular basis and her last use of these drugs was few days back prior to her hospital admission. The patient has been living between the state [facility] and [place]. The patient claims that she was hospitalized 3 times as of September 2019 in a hospital in [place] for pneumonias and respiratory difficulties. She was diagnosed having COPD. She is a chronic smoker. She was treated and ultimately she left AGAINST MEDICAL ADVICE. I do not have any documentation previous workup that was done on this patient. She came back to [place] to stay with her family. The patient's came into the hospital yesterday because of worsening shortness of breath and cough and congestion and chest tightness and wheezing. The chest x-ray showed diffuse bilateral pulmonary infiltrates with bilateral pleural parenchymal changes and bilateral pleural reckoning and areas of consolidation laterally. Based on this, the patient was given a CT angiogram that showed no evidence of any pulmonary embolism. There was bilateral diffuse moderate patchy groundglass opacities with a branching pattern. There was also small pleural effusions. No pneumothorax. There was a background of [id number] mixed chronic interstitial and emphysematous changes more so in the upper lobes. There was also areas of traction bronchiectasis. There was another 1.2 cm nodular opacity with central cavitation disappears segment of the right lower lobe. The mediastinum was free of any significant lymph nodes. Her white cell count was at 9.0. The coronavirus Covid 19 evaluation was negative. The patient also had a influenza screen that came back negative. Cardiac patient liters about 2 by nasal cannula with a pulse ox being above 90%. EKG showing sinus tachycardia. Review of Systems Constitutional: Denies chills, Denies fever Eyes: denies as per HPI, denies blurred vision, denies bulging eye, denies decreased vision, denies diplopia, denies discharge, denies dry eye, denies irritation, denies itching, denies pain, denies photophobia, denies loss of peripheral vision, denies loss of vision, denies tunnel vision/blind spots Ears: deny: decreased hearing, ear discharge, earache, tinnitus Ears, nose, mouth and throat: Reports as per HPI, Denies headache, Denies sore throat Breasts: absent: as per HPI, change in shape, gynecomastia, masses, nipple discharge, pain, skin changes, swelling Cardiovascular: Reports decreased exercise tolerance, Reports dyspnea on exertion Respiratory: Reports congestion, Reports cough, Reports dyspnea, Reports wheezing Gastrointestinal: Reports as per HPI Genitourinary: Reports as per HPI Menstruation: Reports as per HPI Musculoskeletal: Reports as per HPI Musculoskeletal: absent: ankle pain, ankle stiffness, ankle swelling, as per HPI, elbow pain, elbow stiffness, elbow swelling, foot pain, foot stiffness, foot swelling, hand pain, hand stiffness, hand swelling, hip pain, hip stiffness, hip swelling, knee pain, knee stiffness, knee swelling, shoulder pain, shoulder stiffness, shoulder swelling, wrist pain, wrist stiffness, wrist swelling Integumentary: Reports as per HPI Neurological: Reports as per HPI Psychiatric: Reports as per HPI Endocrine: Reports as per HPI Allergic/Immunologic: Reports as per HPI 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, COPD/Asthma, IVDA (heroin and metamphetamine) History of Any Multi-Drug Resistant Organisms: None Reported Past Surgical History: No Surgical Hx Reported Additional Past Surgical History / Comment(s): Bone marrow biopsies, port placement x2 2006, 2008 Past Anesthesia/Blood Transfusion Reactions: No Reported Reaction Smoking Status: Current every day smoker - Past Family History Mother Family Medical History: No Reported History Medications and Allergies Home Medications Medication Instructions Recorded Confirmed Type No Known Home Medications 04/02/20 04/02/20 History Allergies Allergy/AdvReac Type Severity Reaction Status Date / Time asparaginase Allergy Rash/Hives Verified 04/02/20 18:55 bee venom protein (honey bee) Allergy Unknown Verified 04/02/20 18:55 Coconut Allergy Anaphylaxis Verified 04/02/20 18:55 Iodinated Contrast Media Allergy Anaphylaxis Verified 04/02/20 18:55 meperidine HCl [From Demerol] Allergy Anaphylaxis Verified 04/02/20 18:55 Penicillins Allergy Swelling Verified 04/02/20 18:55 Physical Exam Vitals: Vital Signs Temp Pulse Pulse Resp BP BP Pulse Ox 04/03/20 07:39 89 04/03/20 07:26 88 04/03/20 04:00 87 16 88/57 91 L 04/03/20 00:00 98.7 F 87 18 93/61 100 04/02/20 20:15 98.1 F 92 18 93/49 100 04/02/20 19:46 93 16 04/02/20 19:37 96 16 04/02/20 18:50 100 18 94/61 100 04/02/20 18:00 100 22 96/53 100 04/02/20 17:45 109 H 04/02/20 17:40 108 H 24 97/66 100 04/02/20 17:30 123 H 32 H 85/45 100 04/02/20 17:22 118 H 04/02/20 17:10 130 H 32 H 87/62 99 04/02/20 17:00 134 H 32 H 75/43 99 04/02/20 16:00 101 H 18 95/78 99 04/02/20 14:57 105 H 20 99/70 96 04/02/20 13:26 90 22 98/68 98 04/02/20 13:04 97.4 F L 135 H 24 101/60 88 L Intake and Output 04/02/20 04/03/20 04/03/20 22:59 06:59 14:59 Other: Voiding Method Bedpan # Voids 1 Weight 45.813 kg 52 kg PHYSICAL EXAMINATION: Patient is lying in the bed comfortably, no acute distress, awake alert and oriented.. HEENT: Normocephalic. Neck is supple. Pupils reactive. Nostrils clear. Oral cavity is moist. Ears reveal no drainage. Neck reveals no JVD, carotid bruits, or thyromegaly. CHEST EXAMINATION: Trachea is central. Symmetrical expansion.bilateral diminished air entry and wheezing. The patient also has prolongation of exhalation phase of breathing. CARDIAC: Normal S1, S2 with no gallops. No murmurs ABDOMEN: Soft. Bowel sounds normal. No organomegaly. No abdominal bruits. Extremities: reveal no edema. No clubbing or cyanosis Neurologically awake, alert, oriented x3 with well-coordinated movements. No focal deficits noted Skin: No rash or skin lesions. Psychiatric: Coperative. Nonsuicidal, anxious Musculoskeletal: No joint swelling or deformity. Normal range of motion. Results - Laboratory Findings CBC and BMP: 04/03/20 10:45 04/03/20 10:45 PT/INR, D-dimer PT 9.7 sec (9.0-12.0) 04/02/20 14:55 INR 0.9 (<1.2) 04/02/20 14:55 Abnormal lab findings: Abnormal Labs 04/02/20 04/02/20 04/03/20 14:55 14:55 06:19 Hgb 9.0 L Hct 30.5 L MCV 72.9 L MCH 21.6 L MCHC 29.6 L RDW 16.2 H Plt Count 460 H BUN 18 H POC Glucose (mg/dL) 138 H - Diagnostic Findings Chest x-ray: image reviewed CT scan - chest: image reviewed Assessment and Plan Plan: 1 acute exacerbation of COPD/asthma. The patient has emphysematous changes in the upper lobes bilaterally in addition to some traction bronchiectasis 2 acute versus chronic bilateral pneumonia with bilateral pulmonary infiltrates with areas of groundglass pulmonary patchy opacities in addition to peripheral pleural parenchymal thickening and infiltration. The etiology is not clear. The patient was hospitalized on multiple occasions for pneumonia in an outside hospital in a [facility]. It'll be very useful to obtain records from her previous hospitalization and vent and also some of the workup that was done on this patient. The chronicity of the pneumonia is not known. 3 shortness of breath secondary to above 4 history of IV drug use 5 chronic anxiety 6 history of seizure disorder 7 remote history of acute lymphocytic leukemia treated and the patient is currently in remission Plan We'll treat this patient with broad-spectrum antibiotics and the patient recovered with a combination of cefepime and vancomycin felt this patient for a bronchoscopy and the bronchioloalveolar lavage for tomorrow Put the patient on DuoNeb nebulized treatments around the clock IV Solu Medrol 60 mg every 6 hours Proceed with an echocardiogram Blood cultures Obtain records from the hospitals where the patient was in a [facility] and the social sciences chair will be asked to assist in the process. We'll continue to follow.
[2020-04-03] MEDS ORDERED: FUROSEMIDE 10 MG/ML 2 ML VIAL ONE (18:14)
[2020-04-03 20:08] LABS: Glucose,Whole Blood 182 mg/dL (75-99)
[2020-04-04] MEDS: methylPREDNISolone SOD SUCCI 125 MG/2 ML VIAL IV SCH ×5 (00:07→23:28)
[2020-04-04] MEDS: guaiFENesin-Coden 100-10MG/5ML 10 ML CUP PO PRN (01:57)
[2020-04-04] MEDS: VANCOMYCIN 750 MG in SODIUM CHLORIDE 0.9% 250 ML IVPB SCH ×4 (02:27→23:28)
[2020-04-04 06:33] LABS: Glucose,Whole Blood 150 mg/dL (75-99)
[2020-04-04] MEDS: SODIUM CHLORIDE 0.9% 1,000 ML IV SCH ×3 (06:52→21:19)
[2020-04-04] MEDS: INSULIN ASPART (NovoLOG) 100 UNIT/ML VIAL SQ SCH ×4 (06:54→21:19)
[2020-04-04] MEDS ORDERED: VANCOMYCIN TROUGH DUE 1 EACH MISC MISCELLANE ONE (07:00)
[2020-04-04 08:24] LABS: African American GFR (CKD) >90 (>60 ml/min/1.73 sqM); Non-African American GFR(CKD) >90 (>60 ml/min/1.73 sqM)
[2020-04-04] MEDS: CEFEPIME 2 GM in SODIUM CHLORIDE 0.9% 100 ML IVPB SCH ×2 (08:32→21:19)
[2020-04-04] MEDS: ENOXAPARIN 40 MG/0.4 ML SYRINGE SQ SCH (08:46)
[2020-04-04] MEDS: IPRATROPIUM-ALBUTEROL 3 ML NEB INHALATION SCH ×4 (09:15→20:30)
[2020-04-04 11:58] LABS: Glucose,Whole Blood 121 mg/dL (75-99)
[2020-04-04] MEDS ORDERED: PROPOFOL 10 MG/ML 20 ML VIAL IV ONE (13:41)
[2020-04-04] MEDS ORDERED: LIDOCAINE 1% INJ 10MG/ML (20 ML MDV) ONE (13:41)
[2020-04-04] MEDS ORDERED: IV FLUID CONTINUATION 1,000 ML IV ONE (13:43)
--- NOTE | 2020-04-04 14:16 | P.PN ---
Subjective Progress Note Date: 04/04/20 04/04/2020 the patient is being seen for a follow-up. The patient is going to undergo bronchoscopy today. I was able to obtain records from the hospital as the [facility] and at that time the patient was hospitalized for bilateral pneumonia. CAT scan of the chest findings were similar to the ones that he had he [place]. The patient underwent further investigation including alpha-1 antitrypsin level came back within normal, cystic fibrosis mutation screen that came back negative, HIV screen that came back negative, fungal screen including Histoplasma urine antigen, cryptococcal serum antigen and Aspergillus antibodies and all of these were negative. For now, the patient is scheduled to undergo bronchoscopy and bronchial lavage. Echocardiogram showed no evidence of any valvular disease or vegetations. She is still short of breath and she has increased dyspnea cough chest tightness and wheezing. No significant sputum production. Objective - Vital Signs Vital signs: Vital Signs Temp 98.0 F 04/04/20 08:00 Pulse 108 H 04/04/20 13:25 Resp 24 04/04/20 08:00 BP 107/65 04/04/20 08:00 Pulse Ox 95 04/04/20 08:00 Intake & Output 04/03/20 04/04/20 04/04/20 18:59 06:59 18:59 Intake Total 1490 0 Balance 1490 0 Weight 55.1 kg Intake: Intake, IV Titration 1130 Amount Cefepime 2 gm In Sodium 100 Chloride 0.9% 100 ml @ 25 mls/hr IVPB Q12HR [facility] Rx #:[id number] Sodium Chloride 0.9% 1, 780 000 ml @ 130 mls/hr IV . Q7H42M [facility] Rx#:[id number] Vancomycin 750 mg In 250 Sodium Chloride 0.9% 250 ml @ 125 mls/hr IVPB Q8HR [facility] Rx#:[id number] Oral 360 0 Other: Voiding Method Bedpan Bedpan Bedpan # Voids 2 4 # Bowel Movements 0 - Exam Patient is lying in the bed comfortably, no acute distress, awake alert and oriented.. HEENT: Normocephalic. Neck is supple. Pupils reactive. Nostrils clear. Oral cavity is moist. Ears reveal no drainage. Neck reveals no JVD, carotid bruits, or thyromegaly. CHEST EXAMINATION: Trachea is central. Symmetrical expansion.bilateral diminished air entry and wheezing. The patient also has prolongation of exhalation phase of breathing. CARDIAC: Normal S1, S2 with no gallops. No murmurs ABDOMEN: Soft. Bowel sounds normal. No organomegaly. No abdominal bruits. Extremities: reveal no edema. No clubbing or cyanosis Neurologically awake, alert, oriented x3 with well-coordinated movements. No focal deficits noted Skin: No rash or skin lesions. Psychiatric: Coperative. Nonsuicidal, anxious Musculoskeletal: No joint swelling or deformity. Normal range of motion. - Labs CBC & Chem 7: 04/03/20 10:45 04/04/20 07:09 Labs: Abnormal Lab Results - Last 24 Hours (Table) 04/03/20 04/03/20 04/03/20 Range/Units 10:45 16:30 20:07 POC Glucose (mg/dL) 208 H 182 H (75-99) mg/dL Iron 7 L (50-170) ug/dL % Saturation 2.06 L (12.00-45.00) 04/04/20 04/04/20 Range/Units 06:31 11:52 POC Glucose (mg/dL) 150 H 121 H (75-99) mg/dL Iron (50-170) ug/dL % Saturation (12.00-45.00) Microbiology - Last 24 Hours (Table) 04/02/20 14:55 Blood Culture - Preliminary Blood No Growth after 24 hours Assessment and Plan Plan: 1 acute exacerbation of COPD/asthma. The patient has emphysematous changes in the upper lobes bilaterally in addition to some traction bronchiectasis 2 acute versus chronic bilateral pneumonia with bilateral pulmonary infiltrates with areas of groundglass pulmonary patchy opacities in addition to peripheral pleural parenchymal thickening and infiltration. The etiology is not clear. The patient was hospitalized on multiple occasions for pneumonia in an outside hospital in a [facility]. The workup that was done in the hospital including an HIV screen was negative, fungal. Including Histoplasma urine antigen calm cryptococcal urine antigen, and Aspergillus antibodies were all negative. The patient also had a negative screen for cystic fibrosis gene, alpha-1 antitrypsin level within normal limits and the patient had a normal echocardiogram. 3 shortness of breath secondary to above 4 history of IV drug use 5 chronic anxiety 6 history of seizure disorder 7 remote history of acute lymphocytic leukemia treated and the patient is currently in remission Plan I went to proceed with a a bronchoscopy and the bronchioloalveolar lavage for tomorrow Put the patient on DuoNeb nebulized treatments around the clock IV Solu Medrol 60 mg every 6 hours Echocardiogram results are noted and they're within normal limits Continue same antibiotic coverage We'll continue to follow.
--- NOTE | 2020-04-04 14:20 | P.PCN ---
Date of Procedure: 04/04/20 Preoperative Diagnosis: Pneumonia, bilateral Postoperative Diagnosis: Pneumonia, bilateral Procedure(s) Performed: Bronchoscopy, flexible Bronchioloalveolar lavage of the right middle lobe Anesthesia: SHAYE Surgeon: Thang Merritt Housekeeping Department Worker #1: Alma Castillo Pathology: other Condition: stable Disposition: floor Operative Findings: Procedure was done in the endoscopy suite. The patient was intubated and the procedure was done under general anesthesia upon the request of anesthesia services. The patient was intubated by TROUBLE DISPATCHER and the patient was intubated with a #8 orotracheal tube. After achieving adequate sedation, the flexible bronchoscope was inserted to the LAURA and it was passed into the lower trachea. This procedure was done as the patient was adequately oxygenated and ventilated. The bronchoscope was advanced to the distal trachea and the lower one third of the check and was within normal limits. He was seated on 2 cm above the sandra. At that point, her airways inspection was done and the visualized airways included the distal trachea, bilateral mainstem bronchi, right upper lobe bronchus, right middle lobe bronchus, right lower lobe bronchus, bronchus intermedius, left upper lobe bronchus, left lower lobe bronchus along with various segments and subsegments. No endobronchial secretions. No endo- bronchial tumors. No endobronchial irregularities. No other abnormalities was noted. The bronchoscope was wedged into the lateral segment of the right middle lobe and a bronchioloalveolar lavage was done. A total of 60 mL of fluid was infused and a total of 20 mL were aspirated without any major difficulties. Assessment was cloudy and was nonbloody. The procedure was completed. Therapeutic airway suctioning was done. Bronchoscope was removed and the patient was extubated and the patient was transferred recovery in stable condition.
[2020-04-04 16:30] LABS: Hemoglobin A1C 5.5 % (4.0-6.0)
[2020-04-04 17:01] LABS: Glucose,Whole Blood 112 mg/dL (75-99)
[2020-04-04 20:20] LABS: Glucose,Whole Blood 148 mg/dL (75-99)
[2020-04-04] MEDS: busPIRone HCl 5 MG TAB PO SCH (21:18)
--- NOTE | 2020-04-04 23:24 | P.PN ---
Subjective Progress Note Date: 04/03/20 Principal diagnosis: Bilateral patchy groundglass opacities Secondary to pneumonia. Patient is a 29-year-old female with a known history of CLL currently in remission, history of DVT, seizure disorder and asthma, anxiety and history of IVDU last used 2 weeks ago came to ER with the complaints of cough, dyspnea and chest pain with cough. Patient does have history of IV drug abuse and stopped using approximately 2 weeks ago. Patient was seen at outside hospital in [place] for difficulty in breathing. Patient left AGAINST MEDICAL ADVICE. Patient came to [place] to see her family and has been having worsening symptoms again with cough and dyspnea. Chest x-ray showed diffuse bilateral pleural parenchymal changes. Laboratory data showed WBC 9.0, hemoglobin 9.0, MCV 72.9 and platelets 460 Sodium 137, potassium 4.4, BUN 18 and creatinine 0.58 Liver enzymes AST 29, ALT 16 and alk phos 99 Troponin times one 0.012 Coronavirus PCR and influenza A and B negative. CT angiogram showed no evidence of pulmonary embolism. Bilateral moderate patchy groundglass opacities concerning for Covid pneumonia. Recommend clinical correlation. 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 Age-indeterminate 1.2 cm right lung lower lobe nodule. She did have an anaphylactic reaction to her CT angiography. She was given steroids, Benadryl, Pepcid, and epinephrine. She had resolution in symptoms and stabilized blood pressure. Patient is currently on 2 L via nasal cannula with pulse ox 100%. Patient was saturating at 88% on room air on admission and was tachycardic. EKG showed sinus tachycardia. 04/03/2020 Patient is currently resting in the bed. Still having exertional dyspnea and unable to take deep breaths. Bilateral lung sounds are still diminished. Patient is being continued on antibiotics in the form of vancomycin and cefepime. Laboratory pressure WBC 9.9 and hemoglobin 7.6, due to recurrent bilateral pneumonias and areas of groundglass opacities ranging to pleural parenchymal thickening and infiltration possible bronchiolitis obliterans is also consideration. Pulmonary is planning for bronchoscopy tomorrow. Patient is being continued on IV steroids and breathing treatments and antibiotics and oxygen therapy. Current medications reviewed. Objective - Vital Signs Vital signs: Vital Signs Temp 97.3 F L 04/03/20 15:00 Pulse 90 04/03/20 19:11 Resp 20 11/17/20 19:11 BP 118/65 04/03/20 15:00 Pulse Ox 100 04/03/20 15:00 Intake & Output 04/03/20 04/03/20 04/04/20 06:59 18:59 06:59 Intake Total 1490 Balance 1490 Weight 52 kg Intake: Intake, IV Titration 1130 Amount Cefepime 2 gm In Sodium 100 Chloride 0.9% 100 ml @ 25 mls/hr IVPB Q12HR [facility] Rx #:[id number] Sodium Chloride 0.9% 1, 780 000 ml @ 130 mls/hr IV . Q7H42M [facility] Rx#:[id number] Vancomycin 750 mg In 250 Sodium Chloride 0.9% 250 ml @ 125 mls/hr IVPB Q8HR [facility] Rx#:[id number] Oral 360 Other: Voiding Method Bedpan Bedpan # Voids 1 2 # Bowel Movements 0 - Exam PHYSICAL EXAMINATION: Patient is lying in the bed comfortably, no acute distress, awake alert and oriented.. HEENT: Normocephalic. Neck is supple. Pupils reactive. Nostrils clear. Oral cavity is moist. Ears reveal no drainage. Neck reveals no JVD, carotid bruits, or thyromegaly. CHEST EXAMINATION: Trachea is central. Symmetrical expansion.bilateral diminished air entry and wheezing.n. CARDIAC: Normal S1, S2 with no gallops. No murmurs ABDOMEN: Soft. Bowel sounds normal. No organomegaly. No abdominal bruits. Extremities: reveal no edema. No clubbing or cyanosis Neurologically awake, alert, oriented x3 with well-coordinated movements. No focal deficits noted Skin: No rash or skin lesions. Psychiatric: Coperative. Nonsuicidal, anxious Musculoskeletal: No joint swelling or deformity. Normal range of motion. - Labs CBC & Chem 7: 04/03/20 10:45 04/04/20 07:09 Labs: Abnormal Lab Results - Last 24 Hours (Table) 04/03/20 04/03/20 04/03/20 Range/Units 06:19 10:45 10:45 RBC 3.41 L (3.80-5.40) m/uL Hgb 7.6 L (11.4-16.0) gm/dL Hct 26.0 L (34.0-46.0) % MCV 76.4 L (80.0-100.0) fL MCH 22.2 L (25.0-35.0) pg MCHC 29.0 L (31.0-37.0) g/dL RDW 16.0 H (11.5-15.5) % Neutrophils # 8.6 H (1.3-7.7) k/uL D-Dimer (<0.60) mg/L FEU Sodium 136 L (137-145) mmol/L Chloride 109 H (98-107) mmol/L Carbon Dioxide 21 L (22-30) mmol/L Glucose 157 H (74-99) mg/dL POC Glucose (mg/dL) 138 H (75-99) mg/dL Iron 7 L (50-170) ug/dL % Saturation 2.06 L (12.00-45.00) C-Reactive Protein 17.7 H (<10.0) mg/L 04/03/20 04/03/20 04/03/20 Range/Units 10:45 11:59 16:30 RBC (3.80-5.40) m/uL Hgb (11.4-16.0) gm/dL Hct (34.0-46.0) % MCV (80.0-100.0) fL MCH (25.0-35.0) pg MCHC (31.0-37.0) g/dL RDW (11.5-15.5) % Neutrophils # (1.3-7.7) k/uL D-Dimer 3.21 H (<0.60) mg/L FEU Sodium (137-145) mmol/L Chloride (98-107) mmol/L Carbon Dioxide (22-30) mmol/L Glucose (74-99) mg/dL POC Glucose (mg/dL) 153 H 208 H (75-99) mg/dL Iron (50-170) ug/dL % Saturation (12.00-45.00) C-Reactive Protein (<10.0) mg/L 04/03/20 Range/Units 20:07 RBC (3.80-5.40) m/uL Hgb (11.4-16.0) gm/dL Hct (34.0-46.0) % MCV (80.0-100.0) fL MCH (25.0-35.0) pg MCHC (31.0-37.0) g/dL RDW (11.5-15.5) % Neutrophils # (1.3-7.7) k/uL D-Dimer (<0.60) mg/L FEU Sodium (137-145) mmol/L Chloride (98-107) mmol/L Carbon Dioxide (22-30) mmol/L Glucose (74-99) mg/dL POC Glucose (mg/dL) 182 H (75-99) mg/dL Iron (50-170) ug/dL % Saturation (12.00-45.00) C-Reactive Protein (<10.0) mg/L Microbiology - Last 24 Hours (Table) 04/02/20 14:55 Blood Culture - Preliminary Blood No Growth after 24 hours Assessment and Plan Assessment: Bilateral patchy groundglass opacities Secondary to pneumonia. Patient does have recurrent admissions with pneumonia. susected COVID-19 pneumonia. pCR negative Acute hypoxic respiratory failure requiring oxygen via nasal cannula. Acute asthma exacerbation Anaphylactic reaction to iodinated contrast. Blood pressure is stabilized now. History of ALL currently in remission. Anxiety IV drug use. Last used 2 weeks ago Currently everyday smoker DVT prophylaxis with subcu Lovenox. Plan: Patient will be continued IV steroids and breathing treatments. Continue with antibiotics in the form of vancomycin and cefepime. COVID-19 PCR and influenza PCR is negative. Continue with oxygen therapy and follow-up closely. Pulmonary is planning for bronchoscopy tomorrow. Further recommendations based on clinical course. Time with Patient: Greater than 30
--- NOTE | 2020-04-04 23:28 | P.PN ---
Subjective Progress Note Date: 04/04/20 Principal diagnosis: Bilateral patchy groundglass opacities Secondary to pneumonia. Patient is a 29-year-old female with a known history of CLL currently in remission, history of DVT, seizure disorder and asthma, anxiety and history of IVDU last used 2 weeks ago came to ER with the complaints of cough, dyspnea and chest pain with cough. Patient does have history of IV drug abuse and stopped using approximately 2 weeks ago. Patient was seen at outside hospital in [place] for difficulty in breathing. Patient left AGAINST MEDICAL ADVICE. Patient came to [place] to see her family and has been having worsening symptoms again with cough and dyspnea. Chest x-ray showed diffuse bilateral pleural parenchymal changes. Laboratory data showed WBC 9.0, hemoglobin 9.0, MCV 72.9 and platelets 460 Sodium 137, potassium 4.4, BUN 18 and creatinine 0.58 Liver enzymes AST 29, ALT 16 and alk phos 99 Troponin times one 0.012 Coronavirus PCR and influenza A and B negative. CT angiogram showed no evidence of pulmonary embolism. Bilateral moderate patchy groundglass opacities concerning for Covid pneumonia. Recommend clinical correlation. 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 Age-indeterminate 1.2 cm right lung lower lobe nodule. She did have an anaphylactic reaction to her CT angiography. She was given steroids, Benadryl, Pepcid, and epinephrine. She had resolution in symptoms and stabilized blood pressure. Patient is currently on 2 L via nasal cannula with pulse ox 100%. Patient was saturating at 88% on room air on admission and was tachycardic. EKG showed sinus tachycardia. 04/03/2020 Patient is currently resting in the bed. Still having exertional dyspnea and unable to take deep breaths. Bilateral lung sounds are still diminished. Patient is being continued on antibiotics in the form of vancomycin and cefepime. Laboratory pressure WBC 9.9 and hemoglobin 7.6, due to recurrent bilateral pneumonias and areas of groundglass opacities ranging to pleural parenchymal thickening and infiltration possible bronchiolitis obliterans is also consideration. Pulmonary is planning for bronchoscopy tomorrow. Patient is being continued on IV steroids and breathing treatments and antibiotics and oxygen therapy. 04/04/2020 Patient is scheduled for bronchoscopy today. Medical records from [facility] were reviewed by pulmonary. Work-up including alpha-1 antitrypsin, cystic fibrosis, HIV, fungal, histoplasma cryptococcal and Aspergillus antibodies were all negative. Echocardiogram showed no valvular abnormalities or vegetations noted. Patient is still having shortness of breath and cough and chest tightness and wheezing. Exertional dyspnea. Patient remains on antibiotics in the form of vancomycin and cefepime and IV steroids and breathing treatments. decrease IV fluids to 50 cc/h. Encourage oral intake. Current medications reviewed. Objective - Vital Signs Vital signs: Vital Signs Temp 98.5 F 04/04/20 16:00 Pulse 110 H 04/04/20 16:00 Resp 20 04/04/20 16:00 BP 103/61 04/04/20 16:00 Pulse Ox 93 L 04/04/20 16:00 Intake & Output 04/04/20 04/04/20 04/05/20 06:59 18:59 06:59 Intake Total 200 Output Total 0 Balance 200 Weight 55.1 kg Intake: IV 200 Oral 0 Output: Urine 0 Stool 0 Other: Voiding Method Bedpan Bedpan # Voids 4 0 # Bowel Movements 0 - Exam PHYSICAL EXAMINATION: Patient is lying in the bed comfortably, no acute distress, awake alert and oriented.. HEENT: Normocephalic. Neck is supple. Pupils reactive. Nostrils clear. Oral cavity is moist. Ears reveal no drainage. Neck reveals no JVD, carotid bruits, or thyromegaly. CHEST EXAMINATION: Trachea is central. Symmetrical expansion.bilateral diminished air entry and wheezing.n. CARDIAC: Normal S1, S2 with no gallops. No murmurs ABDOMEN: Soft. Bowel sounds normal. No organomegaly. No abdominal bruits. Extremities: reveal no edema. No clubbing or cyanosis Neurologically awake, alert, oriented x3 with well-coordinated movements. No focal deficits noted Skin: No rash or skin lesions. Psychiatric: Coperative. Nonsuicidal, anxious Musculoskeletal: No joint swelling or deformity. Normal range of motion. - Labs CBC & Chem 7: 04/03/20 10:45 04/04/20 07:09 Labs: Abnormal Lab Results - Last 24 Hours (Table) 04/03/20 04/04/20 04/04/20 Range/Units 20:07 06:31 11:52 POC Glucose (mg/dL) 182 H 150 H 121 H (75-99) mg/dL 04/04/20 Range/Units 16:32 POC Glucose (mg/dL) 112 H (75-99) mg/dL Microbiology - Last 24 Hours (Table) 04/02/20 14:55 Blood Culture - Preliminary Blood No Growth after 48 hours Assessment and Plan Assessment: Bilateral patchy groundglass opacities Secondary to pneumonia. Patient does have recurrent admissions with pneumonia. susected COVID-19 pneumonia. pCR negative Acute hypoxic respiratory failure requiring oxygen via nasal cannula. Acute asthma exacerbation Anaphylactic reaction to iodinated contrast. Blood pressure is stabilized now. History of ALL currently in remission. Anxiety IV drug use. Last used 2 weeks ago Currently everyday smoker DVT prophylaxis with subcu Lovenox. Plan: Patient will be continued IV steroids and breathing treatments. Continue with antibiotics in the form of vancomycin and cefepime. COVID-19 PCR and influenza PCR is negative. Continue with oxygen therapy and follow-up closely. bronchoscopy today. Further recommendations based on clinical course. Time with Patient: Greater than 30
[2020-04-05 06:07] LABS: ABG Base Excess 6.4 mmol/L; ABG HCO3 32 mmol/L (21-25); ABG PCO2 62 mmHg (35-45); ABG PH 7.32 (7.35-7.45); ABG PO2 70 mmHg (83-108); ABG TCO2 34 mmol/L (19-24); Allen Test Performed? Yes
[2020-04-05 06:12] LABS: Anisocytosis Slight; Basophils % (A) 0 %; Eosinophils % (A) 0 %; HCT 25.4 % (34.0-46.0); HGB 7.2 gm/dL (11.4-16.0); Hypochromasia Marked; Lymphocytes # (A) 0.6 k/uL (1.0-4.8); Lymphocytes % (A) 4 %; MCH 21.9 pg (25.0-35.0); MCHC 28.5 g/dL (31.0-37.0); MCV 76.8 fL (80.0-100.0); Mean Platelet Volume 7.5; Microcytosis Slight; Monocytes # (A) 0.5 k/uL (0-1.0); Monocytes % (A) 3 %; Neutrophils # (A) 12.6 k/uL (1.3-7.7); Neutrophils % (A) 91 %; Platelet Count 297 k/uL (150-450); Poikilocytosis Slight; RBC 3.31 m/uL (3.80-5.40); RDW 16.3 % (11.5-15.5); VBG PH 7.41 (7.31-7.41); WBC 13.8 k/uL (3.8-10.6)
[2020-04-05] MEDS ORDERED: FUROSEMIDE 10 MG/ML 4 ML VIAL IV STA ×2 (06:13→10:58)
[2020-04-05 06:21] LABS: African American GFR (CKD) >90 (>60 ml/min/1.73 sqM); Anion Gap 3 mmol/L; Blood Urea Nitrogen 14 mg/dL (7-17); Calcium 7.6 mg/dL (8.4-10.2); Carbon Dioxide 32 mmol/L (22-30); Chloride 103 mmol/L (98-107); Glucose 142 mg/dL (74-99); Non-African American GFR(CKD) >90 (>60 ml/min/1.73 sqM); Potassium 4.8 mmol/L (3.5-5.1); Sodium 138 mmol/L (137-145)
[2020-04-05] MEDS: methylPREDNISolone SOD SUCCI 125 MG/2 ML VIAL IV SCH ×3 (06:26→17:30)
--- NOTE | 2020-04-05 06:37 | XR ---
EXAM: XR Chest, 1 View CLINICAL HISTORY: ITS.REASON XR Reason: shortness of breath TECHNIQUE: Frontal view of the chest. COMPARISON: 04/02/20 FINDINGS: Lungs: Marked interval increase of airspace disease throughout most of the lungs. Pleural space: Moderate bilateral pleural effusions, similar/mildly increased. No pneumothorax. Heart: Stable cardiomediastinal silhouette. Enlarged pulmonary artery, better seen on CT. Mediastinum: See above. Bones/joints: Unremarkable. IMPRESSION: 1. Marked interval increase of airspace disease throughout most of the lungs. 2. Moderate bilateral pleural effusions, similar/mildly increased.
[2020-04-05 06:42] LABS: Glucose,Whole Blood 160 mg/dL (75-99)
[2020-04-05] MEDS: INSULIN ASPART (NovoLOG) 100 UNIT/ML VIAL SQ SCH ×2 (07:10→17:39)
[2020-04-05] MEDS: FERROUS SULFATE 325 MG TAB PO SCH ×2 (07:11→17:30)
[2020-04-05] MEDS: SODIUM CHLORIDE 0.9% 1,000 ML IV SCH ×4 (07:11→21:36)
[2020-04-05] MEDS: IPRATROPIUM-ALBUTEROL 3 ML NEB INHALATION SCH ×4 (07:44→20:46)
[2020-04-05] MEDS ORDERED: LACTATED RINGERS 1,000 ML IV SCH (07:53)
[2020-04-05] MEDS: LORazepam 2 MG/ML INJ IV PRN (08:24)
[2020-04-05] MEDS: CEFEPIME 2 GM in SODIUM CHLORIDE 0.9% 100 ML IVPB SCH ×2 (08:40→21:36)
[2020-04-05] MEDS: busPIRone HCl 5 MG TAB PO SCH ×2 (08:46→21:37)
[2020-04-05] MEDS: ENOXAPARIN 40 MG/0.4 ML SYRINGE SQ SCH (08:47)
[2020-04-05] MEDS ORDERED: propofoL 100 ML IV ONE (09:33)
[2020-04-05] MEDS ORDERED: CISATRACURIUM 2 MG/ML 5 ML VIAL IV ONE (09:34)
[2020-04-05] MEDS: VANCOMYCIN 750 MG in SODIUM CHLORIDE 0.9% 250 ML IVPB SCH ×2 (10:52→16:06)
[2020-04-05] MEDS ORDERED: fentaNYL (PF) 50 MCG/ML 2 ML AMP IVP STA (10:57)
[2020-04-05] MEDS ORDERED: fentaNYL (PF) 50 MCG/ML 2 ML AMP ONE (11:00)
[2020-04-05 11:03] LABS: ABG PH 7.25 (7.35-7.45); Allen Test Performed? Yes
[2020-04-05 11:04] LABS: ABG HCO3 39 mmol/L (21-25); ABG PCO2 87 mmHg (35-45); ABG PO2 386 mmHg (83-108); ABG TCO2 41 mmol/L (19-24)
[2020-04-05 11:05] LABS: ABG Base Excess 11.4 mmol/L
--- NOTE | 2020-04-05 11:09 | XR ---
EXAMINATION TYPE: XR chest 1V portable DATE OF EXAM: 04/05/2020 COMPARISON: Prior chest x-ray 04/05/2020 at earlier time HISTORY: Intubation TECHNIQUE: Single frontal view of the chest is obtained. FINDINGS: There is been interval placement of an endotracheal tube which is overlying the tracheal a ir column, distal tip is approximately 8 mm from the sandra. Bilateral pleural thickening is present, bilateral patchy airspace disease again seen within the lungs. No evident pneumothorax. Orogastric t ube has been placed and is coursing into the stomach. IMPRESSION: Endotracheal tube is 8 mm from the sandra, suggest slight reposition, no other significa nt interval change.
[2020-04-05] MEDS ORDERED: CHLORHEXIDINE GLUCONATE 15 ML CUP MUCOUS MEM ONE (11:34)
[2020-04-05] MEDS: fentaNYL (PF) 1,000 MCG in SODIUM CHLORIDE 0.9% 80 ML IV SCH (11:52)
[2020-04-05] MEDS: NOREPINEPHRINE 32 MG in SODIUM CHLORIDE 0.9% 218 ML IV SCH ×2 (13:19→15:00)
--- NOTE | 2020-04-05 15:17 | P.PN ---
Subjective Progress Note Date: 04/05/20 04/04/2020 the patient is being seen for a follow-up. The patient is going to undergo bronchoscopy today. I was able to obtain records from the hospital as the [facility] and at that time the patient was hospitalized for bilateral pneumonia. CAT scan of the chest findings were similar to the ones that he had he [place]. The patient underwent further investigation including alpha-1 antitrypsin level came back within normal, cystic fibrosis mutation screen that came back negative, HIV screen that came back negative, fungal screen including Histoplasma urine antigen, cryptococcal serum antigen and Aspergillus antibodies and all of these were negative. For now, the patient is scheduled to undergo bronchoscopy and bronchial lavage. Echocardiogram showed no evidence of any valvular disease or vegetations. She is still short of breath and she has increased dyspnea cough chest tightness and wheezing. No significant sputum production. On 04/05/2020, the patient is in intensive care unit. Mother the patient underwent a bronchoscopy and bronchial lavage yesterday and the procedure was essentially uncomplicated. Yesterday evening and visual and stock associate hours, the patient became progressively more short of breath, tachypnea, tachycardic and hypoxic. At that point, the emergency team was called and the patient was evaluated twice. During the second evaluation, chest x-ray was done and the patient was found to have diffuse but the pulmonary infiltrates in addition to hypoxic respiratory failure. The patient was started on a BiPAP at a pressure of 12/5 with an FiO2 of 60% and the patient got transferred to the ICU. She was also given a dose of Lasix. She started producing adequate amount of urine output. Nevertheless, she continued to have agonal breathing, low tidal volume and increased tachypnea with impending signs of respiratory failure even while being on a BiPAP. At that point, I made a decision to intubate the patient in intensive care unit. The patient was intubated by #8 orotracheal tube. She was placed on a mechanical ventilator. A triple lumen catheter was established. An outlying catheter was also established. The post intubation blood gas showed a pH of 7.25 with a pCO2 of 87 pO2 of 386 and this was done on assist control mode at the rate of 20 with tidal volume of 350 and FiO2 of 100% with a PEEP of 5. FiO2 is down to 50%. The patient at this point in time is sedated with propofol and the patient is calm and comfortable. Fentanyl was also added to improve for sedation while being a mechanical ventilator. Results of the bronchioloalveolar lavage is still negative. No microbial growth. The patient remains on a combination of IV cefepime and vancomycin. The post intubation chest x-ray showed bilateral pleural thickening and bilateral airspace disease seen although somewhat improved compared to the earlier chest x-rays. ET tube was around 1 cm above the sandra. Blood work from this morning showed a hemoglobin of 7.2. White cell count of 15.8. Aggressive the blood work essentially within normal limits. Objective - Vital Signs Vital signs: Vital Signs Temp 98.7 F 04/05/20 08:00 Pulse 104 H 04/05/20 14:00 Resp 24 04/05/20 14:00 BP 94/66 04/05/20 14:00 Pulse Ox 94 L 04/05/20 14:00 Intake & Output 04/04/20 04/05/20 04/05/20 18:59 06:59 18:59 Intake Total 200 480 565.675 Output Total 0 2095 Balance 200 480 -1529.325 Weight 52.5 kg 52.5 kg Intake: IV 200 160 Sodium Chloride 0.9% 1, 160 000 ml @ 20 mls/hr IV . Q24H [facility] Rx#:[id number] Intake, IV Titration 395.675 Amount Cefepime 2 gm In Sodium 100 Chloride 0.9% 100 ml @ 25 mls/hr IVPB Q12HR [facility] Rx #:[id number] Vancomycin 750 mg In 250 Sodium Chloride 0.9% 250 ml @ 125 mls/hr IVPB Q8HR [facility] Rx#:[id number] propofoL 1,000 mg In 45.675 Empty Bag 1 bag @ Titrate IV .Q0M [facility] Rx#: [id number] Oral 0 480 Tube Feeding 10 Output: Urine 0 2095 Stool 0 Other: Voiding Method Bedpan Bedpan Indwelling Catheter # Voids 0 1 # Bowel Movements 0 ABP, PAP, CO, CI - Last Documented Arterial Blood Pressure 101/54 - Exam Patient thinking cachectic female patient, she looks quite emaciated. She has multiple tattoos. She is currently intubated on a mechanical ventilator. Orogastric and orotracheal tube are both in place. Head exam was generally normal. There was no scleral icterus or corneal arcus. Mucous membranes were moist. HEENT: Normocephalic. Neck is supple. Pupils reactive. Nostrils clear. Oral cavity is moist. Ears reveal no drainage. Neck reveals no JVD, carotid bruits, or thyromegaly. CHEST EXAMINATION: Trachea is central. Symmetrical expansion.bilateral diminished air entry and wheezing. CARDIAC: Normal S1, S2 with no gallops. No murmurs ABDOMEN: Soft. Bowel sounds normal. No organomegaly. No abdominal bruits. Extremities: reveal no edema. No clubbing or cyanosis Neurologically awake, alert, oriented x3 with well-coordinated movements. No focal deficits noted Skin: No rash or skin lesions. Psychiatric: Coperative. Nonsuicidal, anxious Musculoskeletal: No joint swelling or deformity. Normal range of motion. - Labs CBC & Chem 7: 04/05/20 05:55 04/05/20 05:55 Labs: Abnormal Lab Results - Last 24 Hours (Table) 04/04/20 04/04/20 04/05/20 Range/Units 16:32 20:16 05:55 WBC (3.8-10.6) k/uL RBC (3.80-5.40) m/uL Hgb (11.4-16.0) gm/dL Hct (34.0-46.0) % MCV (80.0-100.0) fL MCH (25.0-35.0) pg MCHC (31.0-37.0) g/dL RDW (11.5-15.5) % Neutrophils # (1.3-7.7) k/uL Lymphocytes # (1.0-4.8) k/uL ABG pH (7.35-7.45) ABG pCO2 (35-45) mmHg ABG pO2 (83-108) mmHg ABG HCO3 (21-25) mmol/L ABG Total CO2 (19-24) mmol/L ABG O2 Saturation (94-97) % VBG HCO3 (24-28) mmol/L Carbon Dioxide 32 H (22-30) mmol/L Creatinine 0.48 L (0.52-1.04) mg/dL Glucose 142 H (74-99) mg/dL POC Glucose (mg/dL) 112 H 148 H (75-99) mg/dL Calcium 7.6 L (8.4-10.2) mg/dL 04/05/20 04/05/20 04/05/20 Range/Units 05:55 05:55 06:05 WBC 13.8 H (3.8-10.6) k/uL RBC 3.31 L (3.80-5.40) m/uL Hgb 7.2 L (11.4-16.0) gm/dL Hct 25.4 L (34.0-46.0) % MCV 76.8 L (80.0-100.0) fL MCH 21.9 L (25.0-35.0) pg MCHC 28.5 L (31.0-37.0) g/dL RDW 16.3 H (11.5-15.5) % Neutrophils # 12.6 H (1.3-7.7) k/uL Lymphocytes # 0.6 L (1.0-4.8) k/uL ABG pH 7.32 L (7.35-7.45) ABG pCO2 62 H (35-45) mmHg ABG pO2 70 L (83-108) mmHg ABG HCO3 32 H (21-25) mmol/L ABG Total CO2 34 H (19-24) mmol/L ABG O2 Saturation (94-97) % VBG HCO3 29 H (24-28) mmol/L Carbon Dioxide (22-30) mmol/L Creatinine (0.52-1.04) mg/dL Glucose (74-99) mg/dL POC Glucose (mg/dL) (75-99) mg/dL Calcium (8.4-10.2) mg/dL 04/05/20 04/05/20 Range/Units 06:40 10:51 WBC (3.8-10.6) k/uL RBC (3.80-5.40) m/uL Hgb (11.4-16.0) gm/dL Hct (34.0-46.0) % MCV (80.0-100.0) fL MCH (25.0-35.0) pg MCHC (31.0-37.0) g/dL RDW (11.5-15.5) % Neutrophils # (1.3-7.7) k/uL Lymphocytes # (1.0-4.8) k/uL ABG pH 7.25 L (7.35-7.45) ABG pCO2 87 H* (35-45) mmHg ABG pO2 386 H (83-108) mmHg ABG HCO3 39 H (21-25) mmol/L ABG Total CO2 41 H (19-24) mmol/L ABG O2 Saturation 100.0 H (94-97) % VBG HCO3 (24-28) mmol/L Carbon Dioxide (22-30) mmol/L Creatinine (0.52-1.04) mg/dL Glucose (74-99) mg/dL POC Glucose (mg/dL) 160 H (75-99) mg/dL Calcium (8.4-10.2) mg/dL Microbiology - Last 24 Hours (Table) 04/04/20 14:12 Gram Stain - Preliminary Bronchial Washings - Right Bronchial Washings Culture - Preliminary 04/04/20 14:12 Acid Fast Bacilli Culture - Preliminary Bronchial Washings - Right 04/04/20 14:12 Fungal Culture - Preliminary Bronchial Washings - Right 04/02/20 14:55 Blood Culture - Preliminary Blood No Growth after 48 hours Assessment and Plan Plan: 1 acute hypoxic respiratory failure with development of diffuse bilateral pulmonary infiltrates with significant progression of the infiltrates over the past 24 hours. Consider infectious etiologies. Consider acute pulmonary edema. Patient currently intubated on mechanical ventilator. Sedated with propofol and fentanyl. 2 acute exacerbation of COPD/asthma. The patient has emphysematous changes in the upper lobes bilaterally in addition to some traction bronchiectasis 3 acute versus chronic bilateral pneumonia with bilateral pulmonary infiltrates with areas of groundglass pulmonary patchy opacities in addition to peripheral pleural parenchymal thickening and infiltration. The etiology is not clear. The patient was hospitalized on multiple occasions for pneumonia in an outside hospital in a [facility]. The workup that was done in the hospital including an HIV screen was negative, fungal. Including Histoplasma urine antigen calm cryptococcal urine antigen, and Aspergillus antibodies were all negative. The patient also had a negative screen for cystic fibrosis gene, alpha-1 antitrypsin level within normal limits and the patient had a normal echocardiogram. 4 shortness of breath secondary to above 5 history of IV drug use 6 chronic anxiety 7 history of seizure disorder 8 remote history of acute lymphocytic leukemia treated and the patient is currently in remission Plan Currently the patient intubated on a mechanical ventilator. The ventilator was checked. This is a blood gases were ordered and the ventilator settings were updated. bronchoscopy and the bronchioloalveolar lavagewas done and awaiting the final results of the cultures. Meanwhile the patient on a combination of cefepime and vancomycin. Put the patient on DuoNeb nebulized treatments around the clock IV Solu Medrol 60 mg every 6 hours Echocardiogram results are noted and they're within normal limits Give additional dose of Lasix 40 mg IV push. Continue same antibiotic coverage Keep the patient sedated and accommodation propofol and fentanyl Initiate enteral feeding for nutritional support Lines have been established We'll continue to follow.Condition is critical and the patient will be kept in ICU. Further recommendations are to follow based on the findings. This critically care evaluation was done and morning and 30 minutes. Time with Patient: Greater than 30
--- NOTE | 2020-04-05 15:19 | P.PCN ---
Date of Procedure: 04/05/20 Preoperative Diagnosis: Bilateral pneumonia Postoperative Diagnosis: Bilateral pneumonia Procedure(s) Performed: Intubation, insertion of a triple-lumen catheter, insertion of a narcotic catheter Anesthesia: SHAYE Surgeon: Thang Merritt Estimated Blood Loss (ml): 0 Pathology: none sent Condition: critical Disposition: ICU Operative Findings: Intubation Indication: Respiratory compromise. A time-out was completed verifying correct patient, procedure, site, positioning, and implant(s) or special equipment if applicable. The patient was positioned appropriately and a #8 endotracheal tube was placed under direct laryngoscopy. The tube was anchored at 22 cm at the teeth. Correct placement was confirmed by presence of bilateral breath sounds without air sounds in the abdomen on auscultation. An end-tidal CO2 monitor was also used to confirm tracheal placement of the ET tube. A chest x-ray was ordered to assess for pneumothorax and verify endotracheal tube placement. The patient tolerated the procedure well and there were no complications. Insertion of a central line Indication: Hemodynamic monitoring/Intravenous access. A time-out was completed verifying correct patient, procedure, site, positioni ng, and implant(s) or special equipment if applicable. The patient was placed in a dependent position appropriate for central line placement based on the vein to be cannulated. The patients right groin was prepped and draped in sterile fashion. 1% Lidocaine was used to anesthetize the surrounding skin area. A triple lumen 9F Cordis catheter was introduced into the common femoral vein using Seldinger technique. The catheter was threaded smoothly over the guide wire and appropriate blood return was obtained. Each lumen of the catheter was evacuated of air and flushed with sterile saline. The catheter was then sutured in place to the skin and a sterile dressing applied. Perfusion to the extremity distal to the point of catheter insertion was checked and found to be adequate. The patient tolerated the procedure well and there were no complications. Insertion of an arterial line Indication: Hemodynamic monitoring. A time-out was completed verifying correct patient, procedure, site, positioning, and implant(s) or special equipment if applicable. Allens test was performed to ensure adequate perfusion. The patients right wrist was prepped and draped in sterile fashion. 1% Lidocaine was used to anesthetize the area. An 18G Arrow arterial line was introduced into the [radiall artery. The catheter was threaded over the guide wire and the needle was removed with appropriate pulsatile blood return. Blood loss was minimal. The catheter was then sutured in place to the skin and a sterile dressing applied. Perfusion to the extremity distal to the point of catheter insertion was checked and found to be adequate. The patient tolerated the procedure well and there were no complications.
[2020-04-05 17:39] LABS: Glucose,Whole Blood 122 mg/dL (75-99)
[2020-04-05] MEDS: CHLORHEXIDINE GLUCONATE 15 ML CUP MUCOUS MEM SCH (21:36)
[2020-04-06 01:48] LABS: Glucose,Whole Blood 142 mg/dL (75-99)
[2020-04-06] MEDS: INSULIN ASPART (NovoLOG) 100 UNIT/ML VIAL SQ SCH ×5 (01:49→23:45)
[2020-04-06] MEDS: methylPREDNISolone SOD SUCCI 125 MG/2 ML VIAL IV SCH ×5 (01:50→23:44)
[2020-04-06] MEDS: VANCOMYCIN 750 MG in SODIUM CHLORIDE 0.9% 250 ML IVPB SCH ×3 (01:50→16:02)
[2020-04-06] MEDS: fentaNYL (PF) 1,000 MCG in SODIUM CHLORIDE 0.9% 80 ML IV SCH ×5 (02:05→23:45)
[2020-04-06 04:38] LABS: ALT 13 U/L (4-34); AST 22 U/L (14-36); African American GFR (CKD) >90 (>60 ml/min/1.73 sqM); Albumin 3.1 g/dL (3.5-5.0); Alkaline Phosphatase 79 U/L (38-126); Blood Urea Nitrogen 20 mg/dL (7-17); Calcium 8.7 mg/dL (8.4-10.2); Chloride 94 mmol/L (98-107); Glucose 128 mg/dL (74-99); Non-African American GFR(CKD) >90 (>60 ml/min/1.73 sqM); Potassium 4.2 mmol/L (3.5-5.1); Sodium 139 mmol/L (137-145); Total Bilirubin 0.2 mg/dL (0.2-1.3); Total Protein 6.2 g/dL (6.3-8.2)
[2020-04-06 04:41] LABS: Basophils % (A) 0 %; Eosinophils % (A) 0 %; HCT 25.9 % (34.0-46.0); HGB 7.5 gm/dL (11.4-16.0); Hypochromasia Marked; Lymphocytes # (A) 0.9 k/uL (1.0-4.8); Lymphocytes % (A) 5 %; MCH 21.8 pg (25.0-35.0); MCV 75.2 fL (80.0-100.0); Mean Platelet Volume 7.4; Microcytosis Slight; Monocytes # (A) 0.6 k/uL (0-1.0); Monocytes % (A) 4 %; Neutrophils # (A) 15.2 k/uL (1.3-7.7); Neutrophils % (A) 90 %; Platelet Count 372 k/uL (150-450); RBC 3.45 m/uL (3.80-5.40); RDW 15.8 % (11.5-15.5); WBC 16.9 k/uL (3.8-10.6)
[2020-04-06 04:44] LABS: Anion Gap 0 mmol/L
[2020-04-06 04:50] LABS: Carbon Dioxide 45 mmol/L (22-30)
[2020-04-06] MEDS: SODIUM CHLORIDE 0.9% 1,000 ML IV SCH ×3 (04:54→20:39)
[2020-04-06 05:08] LABS: ABG Base Excess 17.6 mmol/L; ABG Oxygen Saturation 99.2 % (94-97); ABG PH 7.31 (7.35-7.45); ABG PO2 113 mmHg (83-108); ABG TCO2 47 mmol/L (19-24); Allen Test Performed? Yes
[2020-04-06 05:13] LABS: ABG HCO3 44 mmol/L (21-25); ABG PCO2 88 mmHg (35-45)
[2020-04-06 06:12] LABS: Glucose,Whole Blood 143 mg/dL (75-99)
[2020-04-06] MEDS: FERROUS SULFATE 325 MG TAB PO SCH ×2 (07:08→17:15)
--- NOTE | 2020-04-06 07:38 | XR ---
EXAMINATION TYPE: XR chest 1V portable DATE OF EXAM: 04/06/2020 COMPARISON: 04/05/2020 INDICATION: Tube placement TECHNIQUE: Single frontal view of the chest is obtained. FINDINGS: The heart size is normal. The pulmonary vasculature is prominent. There are patchy infiltrates through the bilateral lung saavedra. There is bilateral apical thickening. Endotracheal tube tip is above the sandra. Nasogastric tube transverses the thorax. IMPRESSION: 1. There may be some slight improvement of the bilateral lung infiltrates. Some pleural fluid may be present. 2. Lines and catheters discussed above.
[2020-04-06] MEDS: CEFEPIME 2 GM in SODIUM CHLORIDE 0.9% 100 ML IVPB SCH ×2 (08:45→20:40)
[2020-04-06] MEDS: ENOXAPARIN 40 MG/0.4 ML SYRINGE SQ SCH (08:45)
[2020-04-06] MEDS: CHLORHEXIDINE GLUCONATE 15 ML CUP MUCOUS MEM SCH ×2 (08:46→20:40)
[2020-04-06] MEDS: busPIRone HCl 5 MG TAB PO SCH ×2 (08:46→20:40)
[2020-04-06] MEDS: IPRATROPIUM-ALBUTEROL 3 ML NEB INHALATION SCH ×4 (08:51→20:49)
[2020-04-06] MEDS: FUROSEMIDE 10 MG/ML 2 ML VIAL IV SCH ×2 (09:59→20:40)
--- NOTE | 2020-04-06 10:58 | P.PN ---
Subjective Progress Note Date: 04/05/20 Principal diagnosis: Bilateral patchy groundglass opacities Secondary to pneumonia. Patient is a 29-year-old female with a known history of CLL currently in remission, history of DVT, seizure disorder and asthma, anxiety and history of IVDU last used 2 weeks ago came to ER with the complaints of cough, dyspnea and chest pain with cough. Patient does have history of IV drug abuse and stopped using approximately 2 weeks ago. Patient was seen at outside hospital in [place] for difficulty in breathing. Patient left AGAINST MEDICAL ADVICE. Patient came to [place] to see her family and has been having worsening symptoms again with cough and dyspnea. Chest x-ray showed diffuse bilateral pleural parenchymal changes. Laboratory data showed WBC 9.0, hemoglobin 9.0, MCV 72.9 and platelets 460 Sodium 137, potassium 4.4, BUN 18 and creatinine 0.58 Liver enzymes AST 29, ALT 16 and alk phos 99 Troponin times one 0.012 Coronavirus PCR and influenza A and B negative. CT angiogram showed no evidence of pulmonary embolism. Bilateral moderate patchy groundglass opacities concerning for Covid pneumonia. Recommend clinical correlation. 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 Age-indeterminate 1.2 cm right lung lower lobe nodule. She did have an anaphylactic reaction to her CT angiography. She was given steroids, Benadryl, Pepcid, and epinephrine. She had resolution in symptoms and stabilized blood pressure. Patient is currently on 2 L via nasal cannula with pulse ox 100%. Patient was saturating at 88% on room air on admission and was tachycardic. EKG showed sinus tachycardia. 04/03/2020 Patient is currently resting in the bed. Still having exertional dyspnea and unable to take deep breaths. Bilateral lung sounds are still diminished. Patient is being continued on antibiotics in the form of vancomycin and cefepime. Laboratory pressure WBC 9.9 and hemoglobin 7.6, due to recurrent bilateral pneumonias and areas of groundglass opacities ranging to pleural parenchymal thickening and infiltration possible bronchiolitis obliterans is also consideration. Pulmonary is planning for bronchoscopy tomorrow. Patient is being continued on IV steroids and breathing treatments and antibiotics and oxygen therapy. 04/04/2020 Patient is scheduled for bronchoscopy today. Medical records from [facility] were reviewed by pulmonary. Work-up including alpha-1 antitrypsin, cystic fibrosis, HIV, fungal, histoplasma cryptococcal and Aspergillus antibodies were all negative. Echocardiogram showed no valvular abnormalities or vegetations noted. Patient is still having shortness of breath and cough and chest tightness and wheezing. Exertional dyspnea. Patient remains on antibiotics in the form of vancomycin and cefepime and IV steroids and breathing treatments. decrease IV fluids to 50 cc/h. Encourage oral intake. 04/05/2020 Patient is currently in the intensive care unit. Patient underwent bronchoscopy and bronchial lavage yesterday. Patient was transferred to intensive care unit due to hypoxic respiratory failure. Initially was started on BiPAP and was transferred to MICU. Patient was initially intubated in the intensive care unit. Patient is currently sedated. Chest x-ray showed bilateral pleural thickening and bilateral airspace disease. Laboratory data showed no illicit 13.8, hemoglobin 7.2 and platelets 297 ABG showed pH of 7.32 and pCO2 62 and pO2 70 Sodium 138, potassium 4.8, bicarb is 32, BUN 14 and, calcium 7.6 Patient is being continued on antibiotics of vancomycin and cefepime and also on Solu-Medrol Cultures have been negative so far. Current medications reviewed. Objective - Vital Signs Vital signs: Vital Signs Temp 98.7 F 04/05/20 08:00 Pulse 101 H 04/05/20 15:30 Resp 24 04/05/20 15:30 BP 89/62 04/05/20 15:30 Pulse Ox 95 04/05/20 15:30 Intake & Output 04/04/20 04/05/20 04/05/20 18:59 06:59 18:59 Intake Total 200 480 596.060 Output Total 0 2155 Balance 200 480 -1558.940 Weight 52.5 kg 52.5 kg Intake: IV 200 180 Sodium Chloride 0.9% 1, 180 000 ml @ 20 mls/hr IV . Q24H [facility] Rx#:[id number] Intake, IV Titration 396.060 Amount Cefepime 2 gm In Sodium 100 Chloride 0.9% 100 ml @ 25 mls/hr IVPB Q12HR [facility] Rx #:[id number] Norepinephrine 32 mg In 0.385 Sodium Chloride 0.9% 218 ml @ 0.05 MCG/KG/MIN 1.23 mls/hr IV .Q24H [facility] Rx#: [id number] Vancomycin 750 mg In 250 Sodium Chloride 0.9% 250 ml @ 125 mls/hr IVPB Q8HR [facility] Rx#:[id number] propofoL 1,000 mg In 45.675 Empty Bag 1 bag @ Titrate IV .Q0M [facility] Rx#: [id number] Oral 0 480 Tube Feeding 20 Output: Urine 0 2155 Stool 0 Other: Voiding Method Bedpan Bedpan Indwelling Catheter # Voids 0 1 # Bowel Movements 0 ABP, PAP, CO, CI - Last Documented Arterial Blood Pressure 92/50 - Exam PHYSICAL EXAMINATION: Patient is currently intubated and on mechanical ventilator. Sedated... HEENT: Normocephalic. Neck is supple. Pupils reactive. Nostrils clear. Oral cavity is moist. Ears reveal no drainage. Neck reveals no JVD, carotid bruits, or thyromegaly. CHEST EXAMINATION: Trachea is central. Symmetrical expansion.bilateral diminished air entry and wheezing and coarse sounds. CARDIAC: Normal S1, S2 with no gallops. No murmurs ABDOMEN: Soft. Bowel sounds normal. No organomegaly. No abdominal bruits. Extremities: reveal no edema. No clubbing or cyanosis Neurologically sedated and intubated. No gross focal deficits noted Skin: No rash or skin lesions. Psychiatric: Could not be assessed at this time. Musculoskeletal: No joint swelling or deformity. - Labs CBC & Chem 7: 04/06/20 04:15 04/06/20 04:15 Labs: Abnormal Lab Results - Last 24 Hours (Table) 04/04/20 04/04/20 04/05/20 Range/Units 16:32 20:16 05:55 WBC (3.8-10.6) k/uL RBC (3.80-5.40) m/uL Hgb (11.4-16.0) gm/dL Hct (34.0-46.0) % MCV (80.0-100.0) fL MCH (25.0-35.0) pg MCHC (31.0-37.0) g/dL RDW (11.5-15.5) % Neutrophils # (1.3-7.7) k/uL Lymphocytes # (1.0-4.8) k/uL ABG pH (7.35-7.45) ABG pCO2 (35-45) mmHg ABG pO2 (83-108) mmHg ABG HCO3 (21-25) mmol/L ABG Total CO2 (19-24) mmol/L ABG O2 Saturation (94-97) % VBG HCO3 (24-28) mmol/L Carbon Dioxide 32 H (22-30) mmol/L Creatinine 0.48 L (0.52-1.04) mg/dL Glucose 142 H (74-99) mg/dL POC Glucose (mg/dL) 112 H 148 H (75-99) mg/dL Calcium 7.6 L (8.4-10.2) mg/dL 04/05/20 04/05/20 04/05/20 Range/Units 05:55 05:55 06:05 WBC 13.8 H (3.8-10.6) k/uL RBC 3.31 L (3.80-5.40) m/uL Hgb 7.2 L (11.4-16.0) gm/dL Hct 25.4 L (34.0-46.0) % MCV 76.8 L (80.0-100.0) fL MCH 21.9 L (25.0-35.0) pg MCHC 28.5 L (31.0-37.0) g/dL RDW 16.3 H (11.5-15.5) % Neutrophils # 12.6 H (1.3-7.7) k/uL Lymphocytes # 0.6 L (1.0-4.8) k/uL ABG pH 7.32 L (7.35-7.45) ABG pCO2 62 H (35-45) mmHg ABG pO2 70 L (83-108) mmHg ABG HCO3 32 H (21-25) mmol/L ABG Total CO2 34 H (19-24) mmol/L ABG O2 Saturation (94-97) % VBG HCO3 29 H (24-28) mmol/L Carbon Dioxide (22-30) mmol/L Creatinine (0.52-1.04) mg/dL Glucose (74-99) mg/dL POC Glucose (mg/dL) (75-99) mg/dL Calcium (8.4-10.2) mg/dL 04/05/20 04/05/20 Range/Units 06:40 10:51 WBC (3.8-10.6) k/uL RBC (3.80-5.40) m/uL Hgb (11.4-16.0) gm/dL Hct (34.0-46.0) % MCV (80.0-100.0) fL MCH (25.0-35.0) pg MCHC (31.0-37.0) g/dL RDW (11.5-15.5) % Neutrophils # (1.3-7.7) k/uL Lymphocytes # (1.0-4.8) k/uL ABG pH 7.25 L (7.35-7.45) ABG pCO2 87 H* (35-45) mmHg ABG pO2 386 H (83-108) mmHg ABG HCO3 39 H (21-25) mmol/L ABG Total CO2 41 H (19-24) mmol/L ABG O2 Saturation 100.0 H (94-97) % VBG HCO3 (24-28) mmol/L Carbon Dioxide (22-30) mmol/L Creatinine (0.52-1.04) mg/dL Glucose (74-99) mg/dL POC Glucose (mg/dL) 160 H (75-99) mg/dL Calcium (8.4-10.2) mg/dL Microbiology - Last 24 Hours (Table) 04/05/20 11:11 Sputum Culture - Preliminary Sputum 04/04/20 14:12 Gram Stain - Preliminary Bronchial Washings - Right Bronchial Washings Culture - Preliminary 04/04/20 14:12 Acid Fast Bacilli Culture - Preliminary Bronchial Washings - Right 04/04/20 14:12 Fungal Culture - Preliminary Bronchial Washings - Right 04/02/20 14:55 Blood Culture - Preliminary Blood No Growth after 48 hours Assessment and Plan Assessment: Bilateral patchy groundglass opacities Secondary to pneumonia. Patient does have recurrent admissions with pneumonia. susected COVID-19 pneumonia. pCR negative Acute hypoxic respiratory failure secondary to pneumonia currently patient is on mechanical ventilator. Acute asthma exacerbation Anaphylactic reaction to iodinated contrast. Blood pressure is stabilized now. History of ALL currently in remission. Anxiety IV drug use. Last used 2 weeks ago Currently everyday smoker DVT prophylaxis with subcu Lovenox. Plan: Patient is on mechanical ventilator. Patient will be continued IV steroids and breathing treatments. Continue with antibiotics in the form of vancomycin and cefepime. COVID-19 PCR and influenza PCR is negative. Patient is status post bronchoscopy. Cultures have been negative. Pulmonary is following. Further recommendations based on clinical course. Time with Patient: Greater than 30
[2020-04-06 11:39] LABS: Glucose,Whole Blood 139 mg/dL (75-99)
[2020-04-06 11:58] LABS: ABG Base Excess 19.3 mmol/L; ABG Oxygen Saturation 98.4 % (94-97); ABG PH 7.22 (7.35-7.45); ABG PO2 112 mmHg (83-108); ABG TCO2 50 mmol/L (19-24)
[2020-04-06 11:59] LABS: ABG PCO2 114 mmHg (35-45)
[2020-04-06 12:00] LABS: ABG HCO3 47 mmol/L (21-25); Allen Test Performed? no
[2020-04-06 13:21] LABS: ABG Base Excess 19.5 mmol/L; ABG Oxygen Saturation 99.4 % (94-97); ABG PH 7.26 (7.35-7.45); ABG PO2 132 mmHg (83-108); ABG TCO2 50 mmol/L (19-24)
[2020-04-06 13:23] LABS: ABG PCO2 104 mmHg (35-45)
[2020-04-06 13:24] LABS: ABG HCO3 47 mmol/L (21-25); Allen Test Performed? no
[2020-04-06] MEDS ORDERED: VANCOMYCIN TROUGH DUE 1 EACH MISC MISCELLANE ONE (15:00)
--- NOTE | 2020-04-06 15:38 | P.PN ---
Subjective Progress Note Date: 04/06/20 04/04/2020 the patient is being seen for a follow-up. The patient is going to undergo bronchoscopy today. I was able to obtain records from the hospital as the [facility] and at that time the patient was hospitalized for bilateral pneumonia. CAT scan of the chest findings were similar to the ones that he had he [place]. The patient underwent further investigation including alpha-1 antitrypsin level came back within normal, cystic fibrosis mutation screen that came back negative, HIV screen that came back negative, fungal screen including Histoplasma urine antigen, cryptococcal serum antigen and Aspergillus antibodies and all of these were negative. For now, the patient is scheduled to undergo bronchoscopy and bronchial lavage. Echocardiogram showed no evidence of any valvular disease or vegetations. She is still short of breath and she has increased dyspnea cough chest tightness and wheezing. No significant sputum production. On 04/05/2020, the patient is in intensive care unit. Mother the patient underwent a bronchoscopy and bronchial lavage yesterday and the procedure was essentially uncomplicated. 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 At that point, the emergency team was called and the patient was evaluated twice. During the second evaluation, chest x-ray was done and the patient was found to have diffuse but the pulmonary infiltrates in addition to hypoxic respiratory failure. The patient was started on a BiPAP at a pressure of 12/5 with an FiO2 of 60% and the patient got transferred to the ICU. She was also given a dose of Lasix. She started producing adequate amount of urine output. Nevertheless, she continued to have agonal breathing, low tidal volume and increased tachypnea with impending signs of respiratory failure even while being on a BiPAP. At that point, I made a decision to intubate the patient in intensive care unit. The patient was intubated by #8 orotracheal tube. She was placed on a mechanical ventilator. A triple lumen catheter was established. An outlying catheter was also established. The post intubation blood gas showed a pH of 7.25 with a pCO2 of 87 pO2 of 386 and this was done on assist control mode at the rate of 20 with tidal volume of 350 and FiO2 of 100% with a PEEP of 5. FiO2 is down to 50%. The patient at this point in time is sedated with propofol and the patient is calm and comfortable. Fentanyl was also added to improve for sedation while being a mechanical ventilator. Results of the bronchioloalveolar lavage is still negative. No microbial growth. The patient remains on a combination of IV cefepime and vancomycin. The post intubation chest x-ray showed bilateral pleural thickening and bilateral airspace disease seen although somewhat improved compared to the earlier chest x-rays. ET tube was around 1 cm above the sandra. Blood work from this morning showed a hemoglobin of 7.2. White cell count of 15.8. Aggressive the blood work essentially within normal limits. On 04/06/2020, the patient remains intubated on a mechanical. On today's evaluation the patient is on propofol running at 50 g per KG per minute. The patient is also on fentanyl drip at 3 g per KG per minute. IV fluids at KVO and the patient is on levo fed at 0.1 mg per KG per minute. The patient remains on mechanical ventilator on assist control mode at the rate of 24 with a tidal volume loss was 75 with an FiO2 of 50% and PEEP of 5. Peak airway pressure 37. Plateau airway pressure is 35. Patient is receiving tube feed with vital high protein at the rate of 10 mL an hour and the patient will be advanced to goal. The bronchioloalveolar lavage that was done earlier came back negative for any m icrobial growth. A chest x-ray from today shows some improvement and by the pulmonary infiltrate that was established on yesterday's chest x-ray. The patient remains on a combination of cefepime and vancomycin. Lasix will be restarted. No other significant events otherwise for now. She is requiring norepinephrine infusion for blood pressure control. Echocardiogram at shown a preserved LV function without any significant LV dysfunction. Triple lumen catheter has been established and have right femoral vein. She also has an arterial line catheter. I was concerned about elevated airway pressures in this patient. Unable to ventilate with a higher volumes as the patient's pressure will go significantly high. I switch this patient to a pressure control mode of ventilation. Objective - Vital Signs Vital signs: Vital Signs Temp 98.4 F 04/06/20 12:00 Pulse 91 04/06/20 15:00 Resp 30 H 04/06/20 15:00 BP 98/54 04/06/20 15:00 Pulse Ox 98 04/06/20 15:00 Intake & Output 04/05/20 04/06/20 04/06/20 18:59 06:59 18:59 Intake Total 393.552 3266.739 1014.076 Output Total 2315 640 1655 Balance -1356.837 478.739 -640.924 Weight 52.5 kg 47 kg 47 kg Intake: IV 240 623 537 Cefepime 2 gm In Sodium 100 100 Chloride 0.9% 100 ml @ 25 mls/hr IVPB Q12HR [facility] Rx #:[id number] Pressure bag 33 27 Sodium Chloride 0.9% 1, 240 240 160 000 ml @ 20 mls/hr IV . Q24H [facility] Rx#:[id number] Vancomycin 750 mg In 250 250 Sodium Chloride 0.9% 250 ml @ 125 mls/hr IVPB Q8HR [facility] Rx#:[id number] Intake, IV Titration 648.163 375.739 237.076 Amount Cefepime 2 gm In Sodium 100 Chloride 0.9% 100 ml @ 25 mls/hr IVPB Q12HR [facility] Rx #:[id number] Norepinephrine 32 mg In 2.488 3.089 27.661 Sodium Chloride 0.9% 218 ml @ 0.05 MCG/KG/MIN 1.23 mls/hr IV .Q24H [facility] Rx#: [id number] Vancomycin 750 mg In 500 Sodium Chloride 0.9% 250 ml @ 125 mls/hr IVPB Q8HR [facility] Rx#:[id number] fentaNYL (PF) 1,000 mcg 147.175 94.5 In Sodium Chloride 0.9% 80 ml @ Per Protocol IV . Q0M [facility] Rx#:[id number] propofoL 1,000 mg In 45.675 225.475 114.915 Empty Bag 1 bag @ Titrate IV .Q0M [facility] Rx#: [id number] Tube Feeding 40 120 150 Other 30 90 Output: Urine 2315 640 1655 Other: Voiding Method Indwelling Catheter Indwelling Catheter Indwelling Catheter # Bowel Movements 0 ABP, PAP, CO, CI - Last Documented Arterial Blood Pressure 107/47 - Exam Patient thinking cachectic female patient, she looks quite emaciated. She has multiple tattoos. She is currently intubated on a mechanical ventilator. Orogastric and orotracheal tube are both in place. Head exam was generally normal. There was no scleral icterus or corneal arcus. Mucous membranes were moist. HEENT: Normocephalic. Neck is supple. Pupils reactive. Nostrils clear. Oral cavity is moist. Ears reveal no drainage. Neck reveals no JVD, carotid bruits, or thyromegaly. CHEST EXAMINATION: Trachea is central. Symmetrical expansion.bilateral diminished air entry and wheezing. CARDIAC: Normal S1, S2 with no gallops. No murmurs ABDOMEN: Soft. Bowel sounds normal. No organomegaly. No abdominal bruits. Extremities: reveal no edema. No clubbing or cyanosis Neurologically awake, alert, oriented x3 with well-coordinated movements. No focal deficits noted Skin: No rash or skin lesions. Psychiatric: Coperative. Nonsuicidal, anxious Musculoskeletal: No joint swelling or deformity. Normal range of motion. - Labs CBC & Chem 7: 04/06/20 04:15 04/06/20 04:15 Labs: Abnormal Lab Results - Last 24 Hours (Table) 04/04/20 04/05/20 04/06/20 Range/Units 14:12 17:39 01:45 WBC (3.8-10.6) k/uL RBC (3.80-5.40) m/uL Hgb (11.4-16.0) gm/dL Hct (34.0-46.0) % MCV (80.0-100.0) fL MCH (25.0-35.0) pg MCHC (31.0-37.0) g/dL RDW (11.5-15.5) % Neutrophils # (1.3-7.7) k/uL Lymphocytes # (1.0-4.8) k/uL ABG pH (7.35-7.45) ABG pCO2 (35-45) mmHg ABG pO2 (83-108) mmHg ABG HCO3 (21-25) mmol/L ABG Total CO2 (19-24) mmol/L ABG O2 Saturation (94-97) % Chloride (98-107) mmol/L Carbon Dioxide (22-30) mmol/L BUN (7-17) mg/dL Glucose (74-99) mg/dL POC Glucose (mg/dL) 122 H 142 H (75-99) mg/dL Total Protein (6.3-8.2) g/dL Albumin (3.5-5.0) g/dL Viral Test See Below A 04/06/20 04/06/20 04/06/20 Range/Units 04:15 04:15 05:05 WBC 16.9 H (3.8-10.6) k/uL RBC 3.45 L (3.80-5.40) m/uL Hgb 7.5 L (11.4-16.0) gm/dL Hct 25.9 L (34.0-46.0) % MCV 75.2 L (80.0-100.0) fL MCH 21.8 L (25.0-35.0) pg MCHC 29.0 L (31.0-37.0) g/dL RDW 15.8 H (11.5-15.5) % Neutrophils # 15.2 H (1.3-7.7) k/uL Lymphocytes # 0.9 L (1.0-4.8) k/uL ABG pH 7.31 L (7.35-7.45) ABG pCO2 88 H* (35-45) mmHg ABG pO2 113 H (83-108) mmHg ABG HCO3 44 H* (21-25) mmol/L ABG Total CO2 47 H (19-24) mmol/L ABG O2 Saturation 99.2 H (94-97) % Chloride 94 L (98-107) mmol/L Carbon Dioxide 45 H* (22-30) mmol/L BUN 20 H (7-17) mg/dL Glucose 128 H (74-99) mg/dL POC Glucose (mg/dL) (75-99) mg/dL Total Protein 6.2 L (6.3-8.2) g/dL Albumin 3.1 L (3.5-5.0) g/dL Viral Test 04/06/20 04/06/20 04/06/20 Range/Units 06:11 11:38 11:55 WBC (3.8-10.6) k/uL RBC (3.80-5.40) m/uL Hgb (11.4-16.0) gm/dL Hct (34.0-46.0) % MCV (80.0-100.0) fL MCH (25.0-35.0) pg MCHC (31.0-37.0) g/dL RDW (11.5-15.5) % Neutrophils # (1.3-7.7) k/uL Lymphocytes # (1.0-4.8) k/uL ABG pH 7.22 L (7.35-7.45) ABG pCO2 114 H* (35-45) mmHg ABG pO2 112 H (83-108) mmHg ABG HCO3 47 H* (21-25) mmol/L ABG Total CO2 50 H (19-24) mmol/L ABG O2 Saturation 98.4 H (94-97) % Chloride (98-107) mmol/L Carbon Dioxide (22-30) mmol/L BUN (7-17) mg/dL Glucose (74-99) mg/dL POC Glucose (mg/dL) 143 H 139 H (75-99) mg/dL Total Protein (6.3-8.2) g/dL Albumin (3.5-5.0) g/dL Viral Test 04/06/20 Range/Units 13:19 WBC (3.8-10.6) k/uL RBC (3.80-5.40) m/uL Hgb (11.4-16.0) gm/dL Hct (34.0-46.0) % MCV (80.0-100.0) fL MCH (25.0-35.0) pg MCHC (31.0-37.0) g/dL RDW (11.5-15.5) % Neutrophils # (1.3-7.7) k/uL Lymphocytes # (1.0-4.8) k/uL ABG pH 7.26 L (7.35-7.45) ABG pCO2 104 H* (35-45) mmHg ABG pO2 132 H (83-108) mmHg ABG HCO3 47 H* (21-25) mmol/L ABG Total CO2 50 H (19-24) mmol/L ABG O2 Saturation 99.4 H (94-97) % Chloride (98-107) mmol/L Carbon Dioxide (22-30) mmol/L BUN (7-17) mg/dL Glucose (74-99) mg/dL POC Glucose (mg/dL) (75-99) mg/dL Total Protein (6.3-8.2) g/dL Albumin (3.5-5.0) g/dL Viral Test Microbiology - Last 24 Hours (Table) 04/04/20 14:12 Gram Stain - Final Bronchial Washings - Right Bronchial Washings Culture - Final 04/05/20 11:11 Gram Stain - Preliminary Sputum Sputum Culture - Preliminary 04/04/20 14:12 Acid Fast Bacilli Smear - Final Bronchial Washings - Right Acid Fast Bacilli Culture - Preliminary 04/02/20 14:55 Blood Culture - Preliminary Blood No Growth after 72 hours Assessment and Plan Plan: 1 acute hypoxic respiratory failure with development of diffuse bilateral pulmonary infiltrates/likely ARDS. .Sedated with propofol and fentanyl. The bronchoscopy and the bronchioloalveolar lavage showed no microbial growth. The follow-up chest from today showed slight improvement in the back of pulmonary infiltrates. Lungs are quite stiff and the patient has elevated peak and plateau airway pressures. Patient was switched a pressure control mode of ventilation. Allowing permissive hypercapnia. Consider underlying component of ARDS on top of her COPD. 2 acute exacerbation of COPD/asthma. The patient has emphysematous changes in the upper lobes bilaterally in addition to some traction bronchiectasis 3 acute versus chronic bilateral pneumonia with bilateral pulmonary infiltrates with areas of groundglass pulmonary patchy opacities in addition to peripheral pleural parenchymal thickening and infiltration. The etiology is not clear. The patient was hospitalized on multiple occasions for pneumonia in an outside hospital in a [facility]. The workup that was done in the hospital including an HIV screen was negative, fungal. Including Histoplasma urine antigen calm cryptococcal urine antigen, and Aspergillus antibodies were all negative. The patient also had a negative screen for cystic fibrosis gene, alpha-1 antitrypsin level within normal limits and the patient had a normal echocardiogram. 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 The ventilator was checked. This is a blood gases were ordered and the ventilator settings were updated. Assist this patient a pressure ventilation. Currently, she is on a pressure control of 25 with a FiO2 of 50% and a PEEP of 5 and an inspiratory time of 0.9 seconds. The follow-up blood gases with a pH of 7.26 with a pCO2 of 104 and pO2 of 132. This was on FiO2 of 50%. We'll allow permissive hypercapnia. bronchoscopy and the bronchioloalveolar lavagewas done and awaiting the final results of the cultures. Meanwhile the patient on a combination of cefepime and vancomycin. Put the patient on DuoNeb nebulized treatments around the clock IV Solu Medrol 60 mg every 6 hours Echocardiogram results are noted and they're within normal limits Restart Lasix at a dose of 20 mg IV push every 12 hours Wean off pressors if possible Continue same antibiotic coverage Keep the patient sedated and accommodation propofol and fentanyl Initiate enteral feeding for nutritional support Condition is critical. The patient may likely be in ARDS. We'll continue the IV Solu-Medrol. We will start enteral feeding for nutritional support. We'll continue to follow.Condition is critical and the patient will be kept in ICU. Further recommendations are to follow based on the findings. This critically care evaluation was done and morning and 30 minutes. Time with Patient: Greater than 30
[2020-04-06 16:28] LABS: ABG PO2 80 mmHg (83-108)
[2020-04-06 16:34] LABS: ABG PCO2 >120 mmHg (35-45); Allen Test Performed? no
[2020-04-06 17:28] LABS: ABG Oxygen Saturation 99.5 % (94-97); ABG PO2 134 mmHg (83-108); ABG TCO2 50 mmol/L (19-24)
[2020-04-06 17:33] LABS: ABG PH 7.19 (7.35-7.45)
[2020-04-06 17:34] LABS: ABG HCO3 46 mmol/L (21-25); ABG PCO2 120 mmHg (35-45); Allen Test Performed? no
[2020-04-06 17:44] LABS: Glucose,Whole Blood 148 mg/dL (75-99)
[2020-04-06 23:38] LABS: Glucose,Whole Blood 149 mg/dL (75-99)
[2020-04-06] MEDS: VANCOMYCIN 1,000 MG in SODIUM CHLORIDE 0.9% 250 ML IVPB SCH (23:45)
[2020-04-07] MEDS: SODIUM CHLORIDE 0.9% 1,000 ML IV SCH ×3 (04:18→21:01)
[2020-04-07 04:20] LABS: Basophils # (A) 0.1 k/uL (0-0.2); Basophils % (A) 1 %; Eosinophils % (A) 0 %; HCT 24.6 % (34.0-46.0); HGB 7.2 gm/dL (11.4-16.0); Hypochromasia Marked; Lymphocytes # (A) 0.8 k/uL (1.0-4.8); Lymphocytes % (A) 7 %; MCH 22.2 pg (25.0-35.0); MCHC 29.3 g/dL (31.0-37.0); MCV 75.8 fL (80.0-100.0); Mean Platelet Volume 8.5; Microcytosis Slight; Monocytes # (A) 0.5 k/uL (0-1.0); Monocytes % (A) 4 %; Neutrophils # (A) 8.9 k/uL (1.3-7.7); Neutrophils % (A) 86 %; Platelet Count 325 k/uL (150-450); RBC 3.25 m/uL (3.80-5.40); RDW 15.4 % (11.5-15.5); WBC 10.4 k/uL (3.8-10.6)
[2020-04-07 04:33] LABS: ALT 10 U/L (4-34); AST 14 U/L (14-36); African American GFR (CKD) >90 (>60 ml/min/1.73 sqM); Albumin 2.8 g/dL (3.5-5.0); Alkaline Phosphatase 66 U/L (38-126); Blood Urea Nitrogen 32 mg/dL (7-17); Calcium 8.5 mg/dL (8.4-10.2); Chloride 93 mmol/L (98-107); Glucose 150 mg/dL (74-99); Non-African American GFR(CKD) >90 (>60 ml/min/1.73 sqM); Potassium 4.1 mmol/L (3.5-5.1); Sodium 141 mmol/L (137-145); Total Bilirubin 0.2 mg/dL (0.2-1.3); Total Protein 5.8 g/dL (6.3-8.2)
[2020-04-07 04:40] LABS: Anion Gap -2 mmol/L
[2020-04-07 04:57] LABS: Carbon Dioxide 50 mmol/L (22-30)
[2020-04-07 05:11] LABS: ABG Base Excess 26.7 mmol/L; ABG PCO2 69 mmHg (35-45); ABG PH 7.47 (7.35-7.45); ABG PO2 168 mmHg (83-108); ABG TCO2 53 mmol/L (19-24)
[2020-04-07 05:15] LABS: ABG HCO3 50 mmol/L (21-25)
[2020-04-07] MEDS: fentaNYL (PF) 1,000 MCG in SODIUM CHLORIDE 0.9% 80 ML IV SCH ×3 (05:49→18:41)
[2020-04-07 05:55] LABS: Glucose,Whole Blood 142 mg/dL (75-99)
[2020-04-07] MEDS: INSULIN ASPART (NovoLOG) 100 UNIT/ML VIAL SQ SCH ×4 (05:56→23:33)
[2020-04-07] MEDS: methylPREDNISolone SOD SUCCI 125 MG/2 ML VIAL IV SCH ×4 (05:56→23:33)
--- NOTE | 2020-04-07 06:58 | CONS ---
CONSULTATION DATE OF CONSULTATION: 04/06/2020 REASON FOR CONSULTATION: Positive bronchoscopy culture with CMV. HISTORY OF PRESENT ILLNESS: The patient is a 29-year-old female apparently recently admitted to the hospital in [place] for a possible lung infection in this patient who did have extensive workup at their facility. She was negative for cystic fibrosis gene as well as alpha-1 antitrypsin deficiency. HIV was negative. Did have negative hormone serologies. The patient was advised to stay in the hospital, however, the patient left against medical advice from that facility and subsequently presented to [facility] ER on 04/02/2020 for evaluation of increasing shortness of breath and cough. The pain has been getting worse since the patient left the other hospital. Patient on presentation to hospital did have a chest x-ray followed by CT angiogram which was negative for PE, however, did shows bilateral areas of moderate patchy ground-glass opacity concerning for COVID pneumonia. Patient's COVID test came back negative. The patient subsequently is status post bronchoscopy. Bronch cultures are currently pending. The serology portion did show a CMV that prompted this infectious disease consultation. The patient is currently intubated on the vent. She is hemodynamically stable, not on pressor support. No significant purulent secretion through the ET or any diarrhea per the nursing staff. Patient is unable to provide any history, so most of the information has been obtained from thorough review of the chart and talking to nursing staff. REVIEW OF SYSTEMS: Could not be obtained. Positive points have been mentioned in HPI. PAST MEDICAL HISTORY: DVT, asthma, seizure disorder. PAST SURGICAL HISTORY: Bone marrow biopsy and port placement. SOCIAL HISTORY: Currently a smoker. Occasionally drinks and does have a history of prior IV drug use. FAMILY HISTORY: No pertinent findings noticed. ALLERGIES: XANAX, IV CONTRAST, , PENICILLIN. MEDICATIONS: The patient is currently on vancomycin, propofol, Zofran, Solu-Medrol, Ativan, Robitussin, Lasix, Lovenox, cefepime, DuoNeb and Tylenol. PHYSICAL EXAMINATION: Blood pressure is 102/47, pulse of 65, temperature 98. She is 90% on 50% Venti. General description is a middle-aged female intubated on the vent, in no distress. HEENT examination show no pallor or scleral icterus. The patient is orally intubated. Lungs unlabored breathing, decreased breath sounds at the bases. No wheeze. HEART: S1, S2. Regular rate and rhythm. ABDOMEN: Soft, no tenderness. EXTREMITIES: No edema of the feet. LABS: Hemoglobin 7.4, white count 16.9, Did have normal white count of 9.0 on admission D- dimer was 3.21. BUN of 20, creatinine 0.62. CRP 17.7. Urine is negative. Reddy and influenza PCR negative. IMAGING: Chest x-ray and CT reports mentioned above. DIAGNOSTIC IMPRESSION: Patient with acute respiratory failure which is multifactorial. This patient apparently did have similar symptoms when she was admitted to the hospital in [place] and did have extensive workup that was negative including HIV and fungal serology. This patient since being admitted to the hospital was afebrile and no fever has been recorded. Did have a normal white count. The subsequent white count elevated more likely steroid effect. Positive CMV likely representing shredding from her oropharyngeal mucosa and is not behaving as a CMV pneumonia in this patient with no convincing evidence of any immunosuppression state and has not been on any immunosuppressive medications either. PLAN: 1. May continue with cefepime and vancomycin to cover for possible pneumonia while awaiting for the patient to stabilize. 2. No need for antiviral. 3. We will follow the patient and further adjust medication if needed. Thank you for this consultation. Will follow this patient along with you. MARYL / IJN: [id number] /
[2020-04-07] MEDS: FERROUS SULFATE 325 MG TAB PO SCH ×2 (07:10→17:45)
--- NOTE | 2020-04-07 07:31 | XR ---
EXAMINATION TYPE: XR chest 1V portable DATE OF EXAM: 04/07/2020 COMPARISON: 04/06/2020 HISTORY: SOB, Follow Up FINDINGS: Endotracheal tube is near the right mainstem bronchus and should be pulled back 2 cm. NG tube is see n coursing into the stomach. There appears to be a new right-sided pneumothorax estimated at 10-15%. Persistent but improving infiltrates throughout both lung saavedra. Stable appearance of the cardio-mediastinal structures at this time. Pleural effusion unchanged. IMPRESSION: 1. There appears to be a new right-sided pneumothorax estimated at 10-15%. 2. System but improving infiltrates bilaterally. 3. The tip of the endotracheal tube is at the origin of the right mainstem bronchus and should be pul led back 2 cm. The patient's nurse was notified of the aforementioned findings at 7:28 AM on 04/07/2020
[2020-04-07] MEDS: IPRATROPIUM-ALBUTEROL 3 ML NEB INHALATION SCH ×4 (08:22→21:18)
[2020-04-07] MEDS: VANCOMYCIN 1,000 MG in SODIUM CHLORIDE 0.9% 250 ML IVPB SCH (08:23)
[2020-04-07] MEDS: CEFEPIME 2 GM in SODIUM CHLORIDE 0.9% 100 ML IVPB SCH ×2 (10:02→21:01)
[2020-04-07] MEDS: CHLORHEXIDINE GLUCONATE 15 ML CUP MUCOUS MEM SCH ×2 (10:03→21:01)
[2020-04-07] MEDS: ENOXAPARIN 40 MG/0.4 ML SYRINGE SQ SCH (10:03)
[2020-04-07] MEDS: FUROSEMIDE 10 MG/ML 2 ML VIAL IV SCH ×2 (10:03→21:02)
[2020-04-07] MEDS: busPIRone HCl 5 MG TAB PO SCH ×2 (10:22→21:02)
--- NOTE | 2020-04-07 10:34 | XR ---
EXAMINATION TYPE: XR chest 1V portable DATE OF EXAM: 04/07/2020 COMPARISON: Same day HISTORY: SOB, Follow Up. Reevaluate right-sided pneumothorax FINDINGS: Endotracheal tube has been pulled back 2 cm and is appropriately placed. NG tube is seen coursing int o the stomach. Right-sided pneumothorax is unchanged and is estimated at 15%. Bilateral scattered infiltrates persist as well as biapical pleural thickening. A left-sided pleural effusion suspected. IMPRESSION: 1. No change in right-sided pneumothorax. Bilateral infiltrates are unchanged. Clinical correlatio n and follow up until resolution is recommended.
[2020-04-07 11:01] LABS: ABG Base Excess 25.8 mmol/L; ABG Oxygen Saturation 98.3 % (94-97); ABG PH 7.37 (7.35-7.45); ABG PO2 95 mmHg (83-108); ABG TCO2 54 mmol/L (19-24); Allen Test Performed? Yes
[2020-04-07 11:03] LABS: ABG HCO3 51 mmol/L (21-25); ABG PCO2 89 mmHg (35-45)
[2020-04-07 11:47] LABS: Glucose,Whole Blood 162 mg/dL (75-99)
--- NOTE | 2020-04-07 14:18 | CT ---
EXAMINATION TYPE: CT chest wo con DATE OF EXAM: 04/07/2020 COMPARISON: 04/02/2020. HISTORY: Follow-up pneumothorax. CT 04/02/2020. Same-day radiograph. CT DLP: 230.7 mGycm. Automated Exposure Control for Dose Reduction was Utilized. TECHNIQUE: CT scan of the thorax is performed without IV contrast. FINDINGS: LUNGS: There is endotracheal and nasogastric tubes remain in adequate positions. There is demonstrati on of moderate to large right pneumothorax. There is ongoing bilateral diffuse confluent groundglass opacities. There are small bilateral pleural effusions with pleural thickening. MEDIASTINUM: Lack of IV contrast is noted to limit evaluation for mediastinal and especially hilar ad enopathy. There are scattered multiple mildly enlarged mediastinal lymph nodes. No cardiomegaly or pe ricardial effusion is seen. OTHER: No additional significant abnormality is seen. IMPRESSION: Persistent moderate to large right pneumothorax. Ongoing bilateral diffuse airspace disease, more pronounced on current CT. Small bilateral pleural effusions.
--- NOTE | 2020-04-07 15:58 | P.PN ---
Subjective Progress Note Date: 04/07/20 04/04/2020 the patient is being seen for a follow-up. The patient is going to undergo bronchoscopy today. I was able to obtain records from the hospital as the [facility] and at that time the patient was hospitalized for bilateral pneumonia. CAT scan of the chest findings were similar to the ones that he had he [place]. The patient underwent further investigation including alpha-1 antitrypsin level came back within normal, cystic fibrosis mutation screen that came back negative, HIV screen that came back negative, fungal screen including Histoplasma urine antigen, cryptococcal serum antigen and Aspergillus antibodies and all of these were negative. For now, the patient is scheduled to undergo bronchoscopy and bronchial lavage. Echocardiogram showed no evidence of any valvular disease or vegetations. She is still short of breath and she has increased dyspnea cough chest tightness and wheezing. No significant sputum production. On 04/05/2020, the patient is in intensive care unit. Mother the patient underwent a bronchoscopy and bronchial lavage yesterday and the procedure was essentially uncomplicated. Yesterday evening and wind site manager hours, the patient became progressively more short of breath, tachypnea, tachycardic and hypoxic. At that point, the emergency team was called and the patient was evaluated twice. During the second evaluation, chest x-ray was done and the patient was found to have diffuse but the pulmonary infiltrates in addition to hypoxic respiratory failure. The patient was started on a BiPAP at a pressure of 12/5 with an FiO2 of 60% and the patient got transferred to the ICU. She was also given a dose of Lasix. She started producing adequate amount of urine output. Nevertheless, she continued to have agonal breathing, low tidal volume and increased tachypnea with impending signs of respiratory failure even while being on a BiPAP. At that point, I made a decision to intubate the patient in intensive care unit. The patient was intubated by #8 orotracheal tube. She was placed on a mechanical ventilator. A triple lumen catheter was established. An outlying catheter was also established. The post intubation blood gas showed a pH of 7.25 with a pCO2 of 87 pO2 of 386 and this was done on assist control mode at the rate of 20 with tidal volume of 350 and FiO2 of 100% with a PEEP of 5. FiO2 is down to 50%. The patient at this point in time is sedated with propofol and the patient is calm and comfortable. Fentanyl was also added to improve for sedation while being a mechanical ventilator. Results of the bronchioloalveolar lavage is still negative. No microbial growth. The patient remains on a combination of IV cefepime and vancomycin. The post intubation chest x-ray showed bilateral pleural thickening and bilateral airspace disease seen although somewhat improved compared to the earlier chest x-rays. ET tube was around 1 cm above the sandra. Blood work from this morning showed a hemoglobin of 7.2. White cell count of 15.8. Aggressive the blood work essentially within normal limits. On 04/06/2020, the patient remains intubated on a mechanical. On today's evaluation the patient is on propofol running at 50 g per KG per minute. The patient is also on fentanyl drip at 3 g per KG per minute. IV fluids at KVO and the patient is on levo fed at 0.1 mg per KG per minute. The patient remains on mechanical ventilator on assist control mode at the rate of 24 with a tidal volume loss was 75 with an FiO2 of 50% and PEEP of 5. Peak airway pressure 37. Plateau airway pressure is 35. Patient is receiving tube feed with vital high protein at the rate of 10 mL an hour and the patient will be advanced to goal. The bronchioloalveolar lavage that was done earlier came back negative for any m icrobial growth. A chest x-ray from today shows some improvement and by the pulmonary infiltrate that was established on yesterday's chest x-ray. The patient remains on a combination of cefepime and vancomycin. Lasix will be restarted. No other significant events otherwise for now. She is requiring norepinephrine infusion for blood pressure control. Echocardiogram at shown a preserved LV function without any significant LV dysfunction. Triple lumen catheter has been established and have right femoral vein. She also has an arterial line catheter. I was concerned about elevated airway pressures in this patient. Unable to ventilate with a higher volumes as the patient's pressure will go significantly high. I switch this patient to a pressure control mode of ventilation. 04/07/2020, the patient is being seen for follow-up. The patient remains intubated on a mechanical ventilator. The patient is on assist control ventilation and on today's evaluation the patient is on a pressure control of 30 with a PEEP of 5 and FiO2 of 50% with a rate of 34. The blood gases from today showed a pH of 7.47 with a pCO2 of 69 a pO2 of 168 and a follow-up chest x-ray from today showed improvement in the bilateral pulmonary infiltrates. Nevertheless, there was a note of a right-sided pneumothorax. Based on this, a CAT scan of the chest was done to confirm the findings and the patient did have a right-sided pneumothorax there was moderate in size in addition to bilateral diffuse bilateral a disease and small bilateral pleural effusions. At that point, a 24-Khmer chest tube was inserted in the right hemithorax and a follow- up chest x-ray is pending for now. The patient remains hemodynamically stable and there was no evidence of any tension due to this pneumothorax. I also did some ventilator changes. I dropped the pressure control down to 20 and dropped a respiratory rate down to 24 and drop the FiO2 down to 40%. A repeat blood gases was done and the repeat blood gases showed a pH of 7.37 with a pCO2 of 89 pO2 of 95. The patient's white cell count of 10.4 with hemoglobin of 7.2. The rest of the blood work and electrodes with a component of metabolic alkalosis with a serum bicarb of 50 and a sodium of 141. The patient remains on broad- spectrum antibiotics. Vancomycin was discontinued as the patient's bronchial alveolar lavage did not reveal any microbial growth and I'm going to keep this patient only on cefepime for now. The patient remains sedated with a c ombination of fentanyl erythematous events per KG per minute and for prophylaxis for microvascular KG per minute. The patient is also being diuresis with Lasix at a dose of 20 mg IV push every 12 hours. The patient is on vital high protein at the rate of 30 mL an hour. Objective - Vital Signs Vital signs: Vital Signs Temp 98.8 F 04/07/20 12:30 Pulse 89 04/07/20 15:44 Resp 24 04/07/20 15:00 BP 100/64 04/07/20 15:00 Pulse Ox 95 04/07/20 15:00 Intake & Output 04/06/20 04/07/20 04/07/20 18:59 06:59 18:59 Intake Total 6907.158 9196.381 1202.799 Output Total 1790 1170 1380 Balance -162.746 304.381 -177.201 Weight 47 kg 47.2 kg Intake: IV 856 626 557 Cefepime 2 gm In Sodium 100 100 100 Chloride 0.9% 100 ml @ 25 mls/hr IVPB Q12HR [facility] Rx #:[id number] Pressure bag 36 36 27 Sodium Chloride 0.9% 1, 220 240 180 000 ml @ 20 mls/hr IV . Q24H [facility] Rx#:[id number] Vancomycin 750 mg In 500 250 250 Sodium Chloride 0.9% 250 ml @ 125 mls/hr IVPB Q8HR [facility] Rx#:[id number] Intake, IV Titration 398.254 362.381 222.799 Amount Norepinephrine 32 mg In 38.146 8.911 20.732 Sodium Chloride 0.9% 218 ml @ 0.05 MCG/KG/MIN 1.23 mls/hr IV .Q24H [facility] Rx#: [id number] fentaNYL (PF) 1,000 mcg 189.263 195.55 100 In Sodium Chloride 0.9% 80 ml @ Per Protocol IV . Q0M [facility] Rx#:[id number] propofoL 1,000 mg In 170.845 157.920 102.067 Empty Bag 1 bag @ Titrate IV .Q0M [facility] Rx#: [id number] Tube Feeding 223 396 363 Other 150 90 60 Output: Urine 1790 1170 1380 Stool 0 Other: Voiding Method Indwelling Catheter Indwelling Catheter Indwelling Catheter # Bowel Movements 0 ABP, PAP, CO, CI - Last Documented Arterial Blood Pressure 104/43 - Exam Patient thinking cachectic female patient, she looks quite emaciated. She has multiple tattoos. She is currently intubated on a mechanical ventilator. Orogastric and orotracheal tube are both in place. Head exam was generally normal. There was no scleral icterus or corneal arcus. Mucous membranes were moist. HEENT: Normocephalic. Neck is supple. Pupils reactive. Nostrils clear. Oral cavity is moist. Ears reveal no drainage. Neck reveals no JVD, carotid bruits, or thyromegaly. CHEST EXAMINATION: Trachea is central. Symmetrical expansion.bilateral diminished air entry and wheezing. Overall bronchospasm wheezing improved significantly. The patient has a right-sided chest tube in place with a minimal amount of air leak and there is no significant output in the atrium being collected. CARDIAC: Normal S1, S2 with no gallops. No murmurs ABDOMEN: Soft. Bowel sounds normal. No organomegaly. No abdominal bruits. Extremities: reveal no edema. No clubbing or cyanosis Neurologically awake, alert, oriented x3 with well-coordinated movements. No focal deficits noted Skin: No rash or skin lesions. Psychiatric: Coperative. Nonsuicidal, anxious Musculoskeletal: No joint swelling or deformity. Normal range of motion. - Labs CBC & Chem 7: 04/07/20 04:05 04/07/20 04:05 Labs: Abnormal Lab Results - Last 24 Hours (Table) 04/06/20 04/06/20 04/06/20 Range/Units 16:27 17:23 17:43 RBC (3.80-5.40) m/uL Hgb (11.4-16.0) gm/dL Hct (34.0-46.0) % MCV (80.0-100.0) fL MCH (25.0-35.0) pg MCHC (31.0-37.0) g/dL Neutrophils # (1.3-7.7) k/uL Lymphocytes # (1.0-4.8) k/uL ABG pH 7.10 L* 7.19 L* (7.35-7.45) ABG pCO2 >120 H* 120 H* (35-45) mmHg ABG pO2 80 L 134 H (83-108) mmHg ABG HCO3 46 H* (21-25) mmol/L ABG Total CO2 50 H (19-24) mmol/L ABG O2 Saturation 92.0 L 99.5 H (94-97) % Chloride (98-107) mmol/L Carbon Dioxide (22-30) mmol/L BUN (7-17) mg/dL Glucose (74-99) mg/dL POC Glucose (mg/dL) 148 H (75-99) mg/dL Total Protein (6.3-8.2) g/dL Albumin (3.5-5.0) g/dL 04/06/20 04/07/20 04/07/20 Range/Units 23:36 04:05 04:05 RBC 3.25 L (3.80-5.40) m/uL Hgb 7.2 L (11.4-16.0) gm/dL Hct 24.6 L (34.0-46.0) % MCV 75.8 L (80.0-100.0) fL MCH 22.2 L (25.0-35.0) pg MCHC 29.3 L (31.0-37.0) g/dL Neutrophils # 8.9 H (1.3-7.7) k/uL Lymphocytes # 0.8 L (1.0-4.8) k/uL ABG pH (7.35-7.45) ABG pCO2 (35-45) mmHg ABG pO2 (83-108) mmHg ABG HCO3 (21-25) mmol/L ABG Total CO2 (19-24) mmol/L ABG O2 Saturation (94-97) % Chloride 93 L (98-107) mmol/L Carbon Dioxide 50 H* (22-30) mmol/L BUN 32 H (7-17) mg/dL Glucose 150 H (74-99) mg/dL POC Glucose (mg/dL) 149 H (75-99) mg/dL Total Protein 5.8 L (6.3-8.2) g/dL Albumin 2.8 L (3.5-5.0) g/dL 04/07/20 04/07/20 04/07/20 Range/Units 05:01 05:53 10:59 RBC (3.80-5.40) m/uL Hgb (11.4-16.0) gm/dL Hct (34.0-46.0) % MCV (80.0-100.0) fL MCH (25.0-35.0) pg MCHC (31.0-37.0) g/dL Neutrophils # (1.3-7.7) k/uL Lymphocytes # (1.0-4.8) k/uL ABG pH 7.47 H (7.35-7.45) ABG pCO2 69 H 89 H* (35-45) mmHg ABG pO2 168 H (83-108) mmHg ABG HCO3 50 H* 51 H* (21-25) mmol/L ABG Total CO2 53 H 54 H (19-24) mmol/L ABG O2 Saturation 100.0 H 98.3 H (94-97) % Chloride (98-107) mmol/L Carbon Dioxide (22-30) mmol/L BUN (7-17) mg/dL Glucose (74-99) mg/dL POC Glucose (mg/dL) 142 H (75-99) mg/dL Total Protein (6.3-8.2) g/dL Albumin (3.5-5.0) g/dL 04/07/20 Range/Units 11:45 RBC (3.80-5.40) m/uL Hgb (11.4-16.0) gm/dL Hct (34.0-46.0) % MCV (80.0-100.0) fL MCH (25.0-35.0) pg MCHC (31.0-37.0) g/dL Neutrophils # (1.3-7.7) k/uL Lymphocytes # (1.0-4.8) k/uL ABG pH (7.35-7.45) ABG pCO2 (35-45) mmHg ABG pO2 (83-108) mmHg ABG HCO3 (21-25) mmol/L ABG Total CO2 (19-24) mmol/L ABG O2 Saturation (94-97) % Chloride (98-107) mmol/L Carbon Dioxide (22-30) mmol/L BUN (7-17) mg/dL Glucose (74-99) mg/dL POC Glucose (mg/dL) 162 H (75-99) mg/dL Total Protein (6.3-8.2) g/dL Albumin (3.5-5.0) g/dL Microbiology - Last 24 Hours (Table) 04/05/20 11:11 Gram Stain - Final Sputum Sputum Culture - Final 04/02/20 14:55 Blood Culture - Preliminary Blood No Growth after 96 hours Assessment and Plan Plan: 1 acute hypoxic respiratory failure with development of diffuse bilateral pulmonary infiltrates/likely ARDS. .Sedated with propofol and fentanyl. The bronchoscopy and the bronchioloalveolar lavage showed no microbial growth. The follow-up chest x-ray shows improvement of bilateral pulmonary infiltrates and the patient had a right-sided pneumothorax for which a right-sided chest tube was inserted. Repeat blood gases showed improvement in oxygenation the patient effectively weaned down to 40%. The patient continues to have a component of hypercapnic respiratory failure while being on mechanical ventilator with secondary metabolic alkalosis. 2 acute exacerbation of COPD/asthma. The patient has emphysematous changes in the upper lobes bilaterally in addition to some traction bronchiectasis 3 acute versus chronic bilateral pneumonia with bilateral pulmonary infiltrates with areas of groundglass pulmonary patchy opacities in addition to peripheral pleural parenchymal thickening and infiltration. The etiology is not clear. The patient was hospitalized on multiple occasions for pneumonia in an outside hospital in a [facility]. The workup that was done in the hospital including an HIV screen was negative, fungal. Including Histoplasma urine antigen calm cryptococcal urine antigen, and Aspergillus antibodies were all negative. The patient also had a negative screen for cystic fibrosis gene, alpha-1 antitrypsin level within normal limits and the patient had a normal echocardiogram. 4 right-sided pneumothorax, consider barotrauma secondary to mechanical ventilation with advanced COPD. The right-sided chest tube was inserted. 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 Plan Currently the patient intubated on a mechanical ventilator. The ventilator was checked. The ventilator changes were done and the patient is currently on a pressure control mode at 20 cm of water with a PEEP of 5 and FiO2 is down to 40% We'll allow permissive hypercapnia. Right-sided chest tube was inserted and the repeat chest x-ray is pending for now bronchoscopy and the bronchioloalveolar lavagewas done and awaiting the final results of the cultures. Meanwhile the patient on a combination of cefepime and vancomycin. . The vancomycin will be discontinued and the patient will be kept on IV cefepime Put the patient on DuoNeb nebulized treatments around the clock IV Solu Medrol 60 mg every 6 hours Echocardiogram results are noted and they're within normal limits Restart Lasix at a dose of 20 mg IV push every 12 hours The patient is currently on no pressors Keep the patient sedated and accommodation propofol and fentanyl Initiate enteral feeding for nutritional support enteral feeding for nutritional support. We'll continue to follow. Condition is critical and the patient will be kept in ICU. Further recommendations are to follow based on the findings. This cr itically care evaluation was done and morning and 30 minutes. Time with Patient: Greater than 30
--- NOTE | 2020-04-07 16:00 | P.PCN ---
Date of Procedure: 04/07/20 Preoperative Diagnosis: Right-sided pneumothorax Postoperative Diagnosis: Right-sided pneumothorax Procedure(s) Performed: Right-sided chest tube insertion Anesthesia: local Surgeon: Thang Merritt Estimated Blood Loss (ml): 0 Condition: critical Disposition: ICU Operative Findings: Chest tube insertion A time-out was completed verifying correct patient, procedure, site, positioning, and special equipment if applicable. The patient was positioned appropriately for chest tube placement. The patient's right chest was prepped and draped in sterile fashion. 1% Lidocaine was used to anesthetize the surrounding skin area. A 2 cm skin incision was made in the mid-axillary line at the inframammary crease. Utilizing blunt dissection a subcutaneous tunnel was created cephalad just adjacent to the superior rib. The pleural space was entered bluntly and gush of air was observed. A finger was inserted into the pleural space to check for anatomy and guide tube insertion. A 24-Slovenian thoracostomy tube was inserted using a Denise clamp and positioned appropriately. The chest tube was sutured securely to the skin and a sterile dressing applied. A pleurevac was attached to the chest tube and a chest x-ray obtained. I personally performed this procedure and I was was present for the entire procedure. Estimated Blood Loss: 0 mL The patient tolerated the procedure well and there were no complications.
--- NOTE | 2020-04-07 16:19 | XR ---
EXAMINATION TYPE: XR chest 1V DATE OF EXAM: 04/07/2020 COMPARISON: Earlier same day. HISTORY: Right chest tube placement. TECHNIQUE: Single frontal view of the chest is obtained. FINDINGS: There is interval placement of right lower chest tube. There is residual pneumothorax at l east small in size. The endotracheal and nasogastric tubes remain in place. There are ongoing bilater al patchy airspace opacity, better depicted on earlier CT. There are small pleural effusions. The car diac silhouette size is within normal limits. The osseous structures are intact. IMPRESSION: As above.
[2020-04-07 17:58] LABS: Glucose,Whole Blood 173 mg/dL (75-99)
[2020-04-07] MEDS: NOREPINEPHRINE 32 MG in SODIUM CHLORIDE 0.9% 218 ML IV SCH (18:55)
--- NOTE | 2020-04-07 23:00 | PN ---
PROGRESS NOTE DATE OF SERVICE: 04/07/2020 REASON FOR FOLLOWUP: 1. Pneumonia. 2. Positive bronch culture with CMV. INTERVAL HISTORY: Patient is currently afebrile. The patient is hemodynamically stable. Remains to be intubated on the vent. FiO2 is currently at 40%. No significant purulent secretions thru the ET or any diarrhea reported. EXAM: Blood pressure 105/42 with a pulse of 89. Temperature: 100.1. She is 98% on 40% FiO2. General description is a middle-aged female intubated on the vent. Respiratory system: Unlabored breathing, decreased intensity of breath sounds. No wheeze. HEART: S1, S2. Regular rate and rhythm. Abdomen soft, no tenderness. LABS: Hemoglobin 7.8, white count 10.4, BUN of 32, creatinine 0.53. DIAGNOSTIC IMPRESSION AND PLAN: Patient with acute respiratory failure which is multifactorial in this patient status post bronchoscopy. Culture showing CMV, more likely oral shredding not behaving as CMV pneumonia in this patient who did not have risk factor for it. The patient is currently covered with cefepime to continue with bronch culture pathogen and monitor clinical course closely. MMODL / IJN: [id number] /
[2020-04-07 23:22] LABS: Glucose,Whole Blood 141 mg/dL (75-99)
[2020-04-08] MEDS: fentaNYL (PF) 1,000 MCG in SODIUM CHLORIDE 0.9% 80 ML IV SCH ×4 (01:11→21:05)
[2020-04-08] MEDS: SODIUM CHLORIDE 0.9% 1,000 ML IV SCH ×3 (01:47→18:16)
[2020-04-08 04:18] LABS: Basophils % (A) 0 %; Eosinophils % (A) 0 %; HCT 25.2 % (34.0-46.0); HGB 7.2 gm/dL (11.4-16.0); Hypochromasia Marked; Lymphocytes # (A) 0.8 k/uL (1.0-4.8); Lymphocytes % (A) 9 %; MCH 21.5 pg (25.0-35.0); MCHC 28.4 g/dL (31.0-37.0); MCV 75.8 fL (80.0-100.0); Mean Platelet Volume 9.5; Microcytosis Slight; Monocytes # (A) 0.4 k/uL (0-1.0); Monocytes % (A) 4 %; Neutrophils # (A) 7.4 k/uL (1.3-7.7); Neutrophils % (A) 85 %; Platelet Count 235 k/uL (150-450); RBC 3.33 m/uL (3.80-5.40); RDW 15.5 % (11.5-15.5); WBC 8.7 k/uL (3.8-10.6)
[2020-04-08 04:35] LABS: ALT 11 U/L (4-34); AST 16 U/L (14-36); African American GFR (CKD) >90 (>60 ml/min/1.73 sqM); Alkaline Phosphatase 61 U/L (38-126); Blood Urea Nitrogen 36 mg/dL (7-17); Calcium 8.3 mg/dL (8.4-10.2); Chloride 90 mmol/L (98-107); Glucose 157 mg/dL (74-99); Non-African American GFR(CKD) >90 (>60 ml/min/1.73 sqM); Potassium 4.1 mmol/L (3.5-5.1); Sodium 144 mmol/L (137-145); Total Bilirubin 0.3 mg/dL (0.2-1.3); Total Protein 6.1 g/dL (6.3-8.2)
[2020-04-08 04:41] LABS: Anion Gap 0 mmol/L
[2020-04-08 04:46] LABS: Carbon Dioxide 54 mmol/L (22-30)
[2020-04-08 05:09] LABS: ABG Oxygen Saturation 99.6 % (94-97); ABG PH 7.43 (7.35-7.45); ABG PO2 111 mmHg (83-108); ABG TCO2 58 mmol/L (19-24); Allen Test Performed? Yes
[2020-04-08 05:12] LABS: ABG HCO3 55 mmol/L (21-25); ABG PCO2 84 mmHg (35-45)
[2020-04-08 05:13] LABS: Glucose,Whole Blood 159 mg/dL (75-99)
[2020-04-08] MEDS: methylPREDNISolone SOD SUCCI 125 MG/2 ML VIAL IV SCH ×4 (05:27→23:49)
[2020-04-08] MEDS: INSULIN ASPART (NovoLOG) 100 UNIT/ML VIAL SQ SCH ×4 (05:28→23:46)
[2020-04-08] MEDS: FERROUS SULFATE 325 MG TAB PO SCH ×2 (06:53→16:55)
--- NOTE | 2020-04-08 07:29 | XR ---
EXAMINATION TYPE: XR chest 1V portable DATE OF EXAM: 04/08/2020 COMPARISON: 04/07/2011 HISTORY: Shortness of breath requiring ventilation TECHNIQUE: Single frontal view of the chest is obtained. FINDINGS: Pleural thickening and consolidation involving the left lung with pleural effusion are sta ble. Mass in the left upper lobe not excluded. ET and NG tube and right-sided chest tube stable with stable. 15-20% pneumothorax. No mediastinal deviation. IMPRESSION: 1. Stable 15-20% right-sided pneumothorax with chest tube noted. 2. Diffuse pleural-parenchymal changes unchanged correlate for pneumonia. Underlying CHF not excluded
[2020-04-08] MEDS: IPRATROPIUM-ALBUTEROL 3 ML NEB INHALATION SCH ×4 (07:57→19:47)
[2020-04-08] MEDS: LORazepam 2 MG/ML INJ IV PRN ×2 (08:29→08:51)
[2020-04-08] MEDS ORDERED: ADENOSINE 3 MG/ML 2 ML VIAL IVP ONE ×2 (08:32→08:41)
[2020-04-08] MEDS: CEFEPIME 2 GM in SODIUM CHLORIDE 0.9% 100 ML IVPB SCH ×2 (08:47→20:02)
[2020-04-08] MEDS: ENOXAPARIN 40 MG/0.4 ML SYRINGE SQ SCH (08:47)
[2020-04-08] MEDS: FUROSEMIDE 10 MG/ML 2 ML VIAL IV SCH (08:47)
[2020-04-08] MEDS: CHLORHEXIDINE GLUCONATE 15 ML CUP MUCOUS MEM SCH ×2 (08:47→20:01)
[2020-04-08] MEDS: busPIRone HCl 5 MG TAB PO SCH ×2 (09:44→20:03)
[2020-04-08] MEDS: acetaZOLAMIDE 250 MG TAB PO SCH (09:44)
[2020-04-08 11:27] LABS: Glucose,Whole Blood 208 mg/dL (75-99)
[2020-04-08] MEDS: NOREPINEPHRINE 32 MG in SODIUM CHLORIDE 0.9% 218 ML IV SCH (11:41)
--- NOTE | 2020-04-08 15:08 | P.PN ---
Subjective Progress Note Date: 04/08/20 04/04/2020 the patient is being seen for a follow-up. The patient is going to undergo bronchoscopy today. I was able to obtain records from the hospital as the [facility] and at that time the patient was hospitalized for bilateral pneumonia. CAT scan of the chest findings were similar to the ones that he had he [place]. The patient underwent further investigation including alpha-1 antitrypsin level came back within normal, cystic fibrosis mutation screen that came back negative, HIV screen that came back negative, fungal screen including Histoplasma urine antigen, cryptococcal serum antigen and Aspergillus antibodies and all of these were negative. For now, the patient is scheduled to undergo bronchoscopy and bronchial lavage. Echocardiogram showed no evidence of any valvular disease or vegetations. She is still short of breath and she has increased dyspnea cough chest tightness and wheezing. No significant sputum production. On 04/05/2020, the patient is in intensive care unit. Mother the patient underwent a bronchoscopy and bronchial lavage yesterday and the procedure was essentially uncomplicated. 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 At that point, the emergency team was called and the patient was evaluated twice. During the second evaluation, chest x-ray was done and the patient was found to have diffuse but the pulmonary infiltrates in addition to hypoxic respiratory failure. The patient was started on a BiPAP at a pressure of 12/5 with an FiO2 of 60% and the patient got transferred to the ICU. She was also given a dose of Lasix. She started producing adequate amount of urine output. Nevertheless, she continued to have agonal breathing, low tidal volume and increased tachypnea with impending signs of respiratory failure even while being on a BiPAP. At that point, I made a decision to intubate the patient in intensive care unit. The patient was intubated by #8 orotracheal tube. She was placed on a mechanical ventilator. A triple lumen catheter was established. An outlying catheter was also established. The post intubation blood gas showed a pH of 7.25 with a pCO2 of 87 pO2 of 386 and this was done on assist control mode at the rate of 20 with tidal volume of 350 and FiO2 of 100% with a PEEP of 5. FiO2 is down to 50%. The patient at this point in time is sedated with propofol and the patient is calm and comfortable. Fentanyl was also added to improve for sedation while being a mechanical ventilator. Results of the bronchioloalveolar lavage is still negative. No microbial growth. The patient remains on a combination of IV cefepime and vancomycin. The post intubation chest x-ray showed bilateral pleural thickening and bilateral airspace disease seen although somewhat improved compared to the earlier chest x-rays. ET tube was around 1 cm above the sandra. Blood work from this morning showed a hemoglobin of 7.2. White cell count of 15.8. Aggressive the blood work essentially within normal limits. On 04/06/2020, the patient remains intubated on a mechanical. On today's evaluation the patient is on propofol running at 50 g per KG per minute. The patient is also on fentanyl drip at 3 g per KG per minute. IV fluids at KVO and the patient is on levo fed at 0.1 mg per KG per minute. The patient remains on mechanical ventilator on assist control mode at the rate of 24 with a tidal volume loss was 75 with an FiO2 of 50% and PEEP of 5. Peak airway pressure 37. Plateau airway pressure is 35. Patient is receiving tube feed with vital high protein at the rate of 10 mL an hour and the patient will be advanced to goal. The bronchioloalveolar lavage that was done earlier came back negative for any m icrobial growth. A chest x-ray from today shows some improvement and by the pulmonary infiltrate that was established on yesterday's chest x-ray. The patient remains on a combination of cefepime and vancomycin. Lasix will be restarted. No other significant events otherwise for now. She is requiring norepinephrine infusion for blood pressure control. Echocardiogram at shown a preserved LV function without any significant LV dysfunction. Triple lumen catheter has been established and have right femoral vein. She also has an arterial line catheter. I was concerned about elevated airway pressures in this patient. Unable to ventilate with a higher volumes as the patient's pressure will go significantly high. I switch this patient to a pressure control mode of ventilation. 04/07/2020, the patient is being seen for follow-up. The patient remains intubated on a mechanical ventilator. The patient is on assist control ventilation and on today's evaluation the patient is on a pressure control of 30 with a PEEP of 5 and FiO2 of 50% with a rate of 34. The blood gases from today showed a pH of 7.47 with a pCO2 of 69 a pO2 of 168 and a follow-up chest x-ray from today showed improvement in the bilateral pulmonary infiltrates. Nevertheless, there was a note of a right-sided pneumothorax. Based on this, a CAT scan of the chest was done to confirm the findings and the patient did have a right-sided pneumothorax there was moderate in size in addition to bilateral diffuse bilateral a disease and small bilateral pleural effusions. At that point, a 24-Sinhala chest tube was inserted in the right hemithorax and a follow- up chest x-ray is pending for now. The patient remains hemodynamically stable and there was no evidence of any tension due to this pneumothorax. I also did some ventilator changes. I dropped the pressure control down to 20 and dropped a respiratory rate down to 24 and drop the FiO2 down to 40%. A repeat blood gases was done and the repeat blood gases showed a pH of 7.37 with a pCO2 of 89 pO2 of 95. The patient's white cell count of 10.4 with hemoglobin of 7.2. The rest of the blood work and electrodes with a component of metabolic alkalosis with a serum bicarb of 50 and a sodium of 141. The patient remains on broad- spectrum antibiotics. Vancomycin was discontinued as the patient's bronchial alveolar lavage did not reveal any microbial growth and I'm going to keep this patient only on cefepime for now. The patient remains sedated with a c ombination of fentanyl erythematous events per KG per minute and for prophylaxis for microvascular KG per minute. The patient is also being diuresis with Lasix at a dose of 20 mg IV push every 12 hours. The patient is on vital high protein at the rate of 30 mL an hour. 04/08/2020, the patient remains intubated on a mechanical ventilator. Unfortunately, she continues to have a small right-sided pneumothorax despite a chest tube insertion. The air leak from the right-sided chest tube is minimal at this point in time and output is minimal. The patient is extremely debilitated. 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 She has advanced COPD with chronic lung disease. She is currently on a pressure control mode of ventilation with a pressure control of 20 with an FiO2 of 40% with a PEEP of 5 and the rate of 24. The blood gases showed a pH of 7.43 with a pCO2 of 84 and pO2 of 111. The peak airway pressure 33. The static airway pressure is 27. The patient remains sedated with propofol at the rate of 50 g per KG per minute and fentanyl is running at a rate of 3 g per KG per minute. Norepinephrine is running at 0.02 g per KG per minute. Cultures from the bronchioloalveolar lavage has been negative and the patient is still on cefepime as a broad-spectrum antibiotic coverage for now. She is being diuresed with IV Lasix at a dose of 20 mg IV push every 12 hours. The dose of Lasix will be tapered as the patient has been adequate fluid balance. The chest x-ray findings shows improvement and by the pulmonary infiltrates. There is however a stable loculated right-sided pneumothorax and the right-sided chest tube is in good location. ET tube is in good location. The patient was started on enteral feeding for nutritional support. I'm very much convinced that the patient would benefit from a PEG and trach as the patient has advanced lung disease and she is quite debilitated and malnourished at this young age. On a separate note, earlier this morning the patient went into a bout of an SVT with a heart rate of 160. The patient was given 2 doses of IV Rocephin, 6 mg and 12 mg without success. Her heart rate gradually is improving at this point in time and over the next few hours, the patient's heart rate dropped down to 112 Objective - Vital Signs Vital signs: Vital Signs Temp 98.7 F 04/08/20 12:00 Pulse 112 H 04/08/20 14:30 Resp 24 04/08/20 14:30 BP 100/65 04/08/20 14:00 Pulse Ox 98 04/08/20 14:30 Intake & Output 04/07/20 04/08/20 04/08/20 18:59 06:59 18:59 Intake Total 1109.810 9106.887 1001.281 Output Total 1590 1535 1155 Balance -16.631 -396.113 -153.719 Weight 53 kg Intake: IV 626 376 307 Cefepime 2 gm In Sodium 100 100 100 Chloride 0.9% 100 ml @ 25 mls/hr IVPB Q12HR [facility] Rx #:[id number] Pressure bag 36 36 27 Sodium Chloride 0.9% 1, 240 240 180 000 ml @ 20 mls/hr IV . Q24H [facility] Rx#:[id number] Vancomycin 750 mg In 250 Sodium Chloride 0.9% 250 ml @ 125 mls/hr IVPB Q8HR [facility] Rx#:[id number] Intake, IV Titration 395.369 276.887 277.281 Amount Norepinephrine 32 mg In 20.732 5.523 6.734 Sodium Chloride 0.9% 218 ml @ 0.05 MCG/KG/MIN 1.23 mls/hr IV .Q24H [facility] Rx#: [id number] fentaNYL (PF) 1,000 mcg 197.125 100 200 In Sodium Chloride 0.9% 80 ml @ Per Protocol IV . Q0M [facility] Rx#:[id number] propofoL 1,000 mg In 177.512 171.364 70.547 Empty Bag 1 bag @ Titrate IV .Q0M [facility] Rx#: [id number] Tube Feeding 462 396 297 Other 90 90 120 Output: Chest Tube Drainage 15 Chest Tube Right 15 Urine 1590 1520 1155 Stool 0 Other: Voiding Method Indwelling Catheter Indwelling Catheter Indwelling Catheter # Voids 1 # Bowel Movements 0 ABP, PAP, CO, CI - Last Documented Arterial Blood Pressure 117/48 - Exam Patient thinking cachectic female patient, she looks quite emaciated. She has multiple tattoos. She is currently intubated on a mechanical ventilator. Orogastric and orotracheal tube are both in place. Head exam was generally normal. There was no scleral icterus or corneal arcus. Mucous membranes were moist. HEENT: Normocephalic. Neck is supple. Pupils reactive. Nostrils clear. Oral cavity is moist. Ears reveal no drainage. Neck reveals no JVD, carotid bruits, or thyromegaly. CHEST EXAMINATION: Trachea is central. Symmetrical expansion.bilateral diminished air entry and wheezing. Overall bronchospasm wheezing improved significantly. The patient has a right-sided chest tube in place with a minimal amount of air leak and there is no significant output in the atrium being collected. CARDIAC: Normal S1, S2 with no gallops. No murmurs ABDOMEN: Soft. Bowel sounds normal. No organomegaly. No abdominal bruits. Extremities: reveal no edema. No clubbing or cyanosis Neurologically awake, alert, oriented x3 with well-coordinated movements. No focal deficits noted Skin: No rash or skin lesions. Psychiatric: Coperative. Nonsuicidal, anxious Musculoskeletal: No joint swelling or deformity. Normal range of motion. - Labs CBC & Chem 7: 04/08/20 04:00 04/08/20 04:00 Labs: Abnormal Lab Results - Last 24 Hours (Table) 04/07/20 04/07/20 04/08/20 Range/Units 17:56 23:21 04:00 RBC (3.80-5.40) m/uL Hgb (11.4-16.0) gm/dL Hct (34.0-46.0) % MCV (80.0-100.0) fL MCH (25.0-35.0) pg MCHC (31.0-37.0) g/dL Lymphocytes # (1.0-4.8) k/uL ABG pCO2 (35-45) mmHg ABG pO2 (83-108) mmHg ABG HCO3 (21-25) mmol/L ABG Total CO2 (19-24) mmol/L ABG O2 Saturation (94-97) % Chloride 90 L (98-107) mmol/L Carbon Dioxide 54 H* (22-30) mmol/L BUN 36 H (7-17) mg/dL Glucose 157 H (74-99) mg/dL POC Glucose (mg/dL) 173 H 141 H (75-99) mg/dL Calcium 8.3 L (8.4-10.2) mg/dL Total Protein 6.1 L (6.3-8.2) g/dL Albumin 3.0 L (3.5-5.0) g/dL 04/08/20 04/08/20 04/08/20 Range/Units 04:00 05:00 05:13 RBC 3.33 L (3.80-5.40) m/uL Hgb 7.2 L (11.4-16.0) gm/dL Hct 25.2 L (34.0-46.0) % MCV 75.8 L (80.0-100.0) fL MCH 21.5 L (25.0-35.0) pg MCHC 28.4 L (31.0-37.0) g/dL Lymphocytes # 0.8 L (1.0-4.8) k/uL ABG pCO2 84 H* (35-45) mmHg ABG pO2 111 H (83-108) mmHg ABG HCO3 55 H* (21-25) mmol/L ABG Total CO2 58 H (19-24) mmol/L ABG O2 Saturation 99.6 H (94-97) % Chloride (98-107) mmol/L Carbon Dioxide (22-30) mmol/L BUN (7-17) mg/dL Glucose (74-99) mg/dL POC Glucose (mg/dL) 159 H (75-99) mg/dL Calcium (8.4-10.2) mg/dL Total Protein (6.3-8.2) g/dL Albumin (3.5-5.0) g/dL 04/08/20 Range/Units 11:25 RBC (3.80-5.40) m/uL Hgb (11.4-16.0) gm/dL Hct (34.0-46.0) % MCV (80.0-100.0) fL MCH (25.0-35.0) pg MCHC (31.0-37.0) g/dL Lymphocytes # (1.0-4.8) k/uL ABG pCO2 (35-45) mmHg ABG pO2 (83-108) mmHg ABG HCO3 (21-25) mmol/L ABG Total CO2 (19-24) mmol/L ABG O2 Saturation (94-97) % Chloride (98-107) mmol/L Carbon Dioxide (22-30) mmol/L BUN (7-17) mg/dL Glucose (74-99) mg/dL POC Glucose (mg/dL) 208 H (75-99) mg/dL Calcium (8.4-10.2) mg/dL Total Protein (6.3-8.2) g/dL Albumin (3.5-5.0) g/dL Microbiology - Last 24 Hours (Table) 04/02/20 14:55 Blood Culture - Preliminary Blood No Growth after 120 hours Assessment and Plan Plan: 1 acute hypoxic respiratory failure with development of diffuse bilateral pulmonary infiltrates/likely ARDS. .Sedated with propofol and fentanyl. The bronchoscopy and the bronchioloalveolar lavage showed no microbial growth. The follow-up chest x-ray shows improvement of bilateral pulmonary infiltrates and the patient had a right-sided pneumothorax for which a right-sided chest tube was inserted. The chest tube remains in a good location patient is a small lo culated right-sided chest tube in place with small air leak. We'll keep the chest tube in place. Follow-up blood gases showed a compensated hypercapnic respiratory failure. Oxygenation is improved. The patient is being ventilated with a pressure control mode of ventilation as the patient's lungs are quite swollen status and she with chronic pressure at a volume cycle and this was one of the reason why the patient developed a pneumothorax and this was probably a barotrauma complication. 2 acute exacerbation of COPD/asthma. The patient has emphysematous changes in the upper lobes bilaterally in addition to some traction bronchiectasis 3 acute versus chronic bilateral pneumonia with bilateral pulmonary infiltrates with areas of groundglass pulmonary patchy opacities in addition to peripheral pleural parenchymal thickening and infiltration. The etiology is not clear. The patient was hospitalized on multiple occasions for pneumonia in an outside hospital in a [facility]. The workup that was done in the hospital including an HIV screen was negative, fungal. Including Histoplasma urine antigen calm cryptococcal urine antigen, and Aspergillus antibodies were all negative. The patient also had a negative screen for cystic fibrosis gene, alpha-1 antitrypsin level within normal limits and the patient had a normal echocardiogram. 4 right-sided pneumothorax, consider barotrauma secondary to mechanical ventilation with advanced COPD. The right-sided chest tube was inserted. There is still a stable right-sided pneumothorax without evidence of any tension. There is minimal amount of air leak as noted in the chest tube regurgitation atrium and a suction. 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 11 chronic hypercapnic respiratory failure, compensated at this point in time an d the patient has a component of metabolic alkalosis. 12 sinus tachycardia Plan Currently the patient intubated on a mechanical ventilator. The ventilator was checked. The ventilator changes were done and the patient will be kept on a pressure control mode of ventilation at the same level of pressures. We'll allow permissive hypercapnia. Will reduce Lasix to 20 mg IV every 24 hours and we'll give the patient a total of 4 doses of Diamox 500 mg every 12 hours and monitor the serum bicarbonate acid base status Right-sided chest tube was inserted and the repeat chest x-ray is still showing a smaller loculated right-sided pneumothorax and there is air leak and we'll keep the chest tube in place. I also asked the cardiothoracic OUTSIDE MAINTENANCE WORKER to evaluate Nivia. The chest tube if needed.bronchoscopy and the bronchioloalveolar lavagewas done and awaiting the final results of the cultures. Meanwhile the patient is still on IV cefepime Put the patient on DuoNeb nebulized treatments around the clock IV Solu Medrol 60 mg every 6 hours, we'll start tapering the steroids as of tomorrow Echocardiogram results are noted and they're within normal limits The patient is currently low dose pressors which will be ultimately weaned off and discontinued Keep the patient sedated and accommodation propofol and fentanyl Enteral feeding for nutritional support General surgery consultation for a tracheostomy and PEG tube insertion We'll continue to follow. Condition is critical and the patient will be kept in ICU. Further recommendations are to follow based on the findings. This critically care evaluation was done and morning and 30 minutes. Time with Patient: Greater than 30
--- NOTE | 2020-04-08 16:15 | P.GSCN ---
History of Present Illness Consult date: 04/08/20 History of present illness: CHIEF COMPLAINT: Hypoxia HISTORY OF PRESENT ILLNESS: The patient is a 29-year-old female pre-existing history of methamphetamine abuse including IV drug abuse who was hospitalized at outside institution in [place] for pneumonia. Patient left AGAINST MEDICAL ADVICE and presented for her current hospitalization for hypoxia including diffi culty with breathing. Diagnostic studies confirmed pneumonia. Patient required intubation and has since been intubated for almost one week. Patient is failure to wean. As result of prolonged ventilatory status, tracheostomy including gastrostomy tube placement is being requested. Patient remains on full ventilatory support. PAST MEDICAL HISTORY: See list and reviewed PAST SURGICAL HISTORY: See list and reviewed MEDICATIONS: See list and reviewed ALLERGIES: See list and reviewed SOCIAL HISTORY: See list and reviewed FAMILY HISTORY: See list and reviewed REVIEW OF ORGAN SYSTEMS: Unable to obtain patient ventilated and sedated PHYSICAL EXAM: VITALS: Reviewed CONSTITUTIONAL: Well developed and in no acute distress. EYES: Conjuctivae without sclera icterus. Pupils are equally round and reactive to light. Extraocular movements grossly intact. HEAD, EARS, NOSE, THROAT: Moist buccal mucosa. Head is atraumatic, normocephalic. Hears conversational speech. No nasal drainage. RESPIRATORY: Full mechanical ventilation. Nonlabored. CARDIOVASCULAR: Tachycardic ABDOMEN: No peritonitis MUSCULOSKELETAL: Nail and fingers with good capillary refill. SKIN: Well perfused with good skin turgor. NEUROLOGIC: Depressed due to sedation. PSYCH: Deferred due to sedation CLINCAL LABS: Reviewed. WBC normal 8.7. Coronavirus negative. IMAGING: Chest x-ray in the past reviewed without large series of consolidations. RADIOLOGY: Report reviewed of chest x-ray confirms right pneumothorax less than 20 cm. ASSESSMENT: 1. Hypoxia with vent dependent respiratory status 2. Right pneumothorax 3. IV drug abuse methamphetamine abuse PLAN: 1. Agree with trach and PEG due to prolonged ventilatory status and inability to wean 2. Additionally, will need gastrostomy tube for tube feeds. 3. Continue intensive care unit assessment. Thank you for this kind consultation. 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, COPD/Asthma, IVDA (heroin and metamphetamine) History of Any Multi-Drug Resistant Organisms: None Reported Past Surgical History: No Surgical Hx Reported Additional Past Surgical History / Comment(s): Bone marrow biopsies, port placement x2 2006, 2008 Past Anesthesia/Blood Transfusion Reactions: No Reported Reaction Smoking Status: Current every day smoker - Past Family History Mother Family Medical History: No Reported History Medications and Allergies Home Medications Medication Instructions Recorded Confirmed Type No Known Home Medications 04/02/20 04/02/20 History Allergies Allergy/AdvReac Type Severity Reaction Status Date / Time alprazolam [From Xanax] Allergy Itching Verified 04/04/20 19:35 asparaginase Allergy Rash/Hives Verified 04/02/20 18:55 bee venom protein (honey bee) Allergy Unknown Verified 04/02/20 18:55 Coconut Allergy Anaphylaxis Verified 04/02/20 18:55 Iodinated Contrast Media Allergy Anaphylaxis Verified 04/02/20 18:55 meperidine HCl [From Demerol] Allergy Anaphylaxis Verified 04/02/20 18:55 Penicillins Allergy Swelling Verified 04/02/20 18:55 Surgical - Exam Vital Signs Temp Pulse Resp BP Pulse Ox 97.4 F L 135 H 24 101/60 88 L 04/02/20 13:04 04/02/20 13:04 04/02/20 13:04 04/02/20 13:04 04/02/20 13:04 Results - Labs 04/08/20 04:00 04/08/20 04:00 Abnormal Lab Results - Last 24 Hours (Table) 04/07/20 04/07/20 04/08/20 Range/Units 17:56 23:21 04:00 RBC (3.80-5.40) m/uL Hgb (11.4-16.0) gm/dL Hct (34.0-46.0) % MCV (80.0-100.0) fL MCH (25.0-35.0) pg MCHC (31.0-37.0) g/dL Lymphocytes # (1.0-4.8) k/uL ABG pCO2 (35-45) mmHg ABG pO2 (83-108) mmHg ABG HCO3 (21-25) mmol/L ABG Total CO2 (19-24) mmol/L ABG O2 Saturation (94-97) % Chloride 90 L (98-107) mmol/L Carbon Dioxide 54 H* (22-30) mmol/L BUN 36 H (7-17) mg/dL Glucose 157 H (74-99) mg/dL POC Glucose (mg/dL) 173 H 141 H (75-99) mg/dL Calcium 8.3 L (8.4-10.2) mg/dL Total Protein 6.1 L (6.3-8.2) g/dL Albumin 3.0 L (3.5-5.0) g/dL 04/08/20 04/08/20 04/08/20 Range/Units 04:00 05:00 05:13 RBC 3.33 L (3.80-5.40) m/uL Hgb 7.2 L (11.4-16.0) gm/dL Hct 25.2 L (34.0-46.0) % MCV 75.8 L (80.0-100.0) fL MCH 21.5 L (25.0-35.0) pg MCHC 28.4 L (31.0-37.0) g/dL Lymphocytes # 0.8 L (1.0-4.8) k/uL ABG pCO2 84 H* (35-45) mmHg ABG pO2 111 H (83-108) mmHg ABG HCO3 55 H* (21-25) mmol/L ABG Total CO2 58 H (19-24) mmol/L ABG O2 Saturation 99.6 H (94-97) % Chloride (98-107) mmol/L Carbon Dioxide (22-30) mmol/L BUN (7-17) mg/dL Glucose (74-99) mg/dL POC Glucose (mg/dL) 159 H (75-99) mg/dL Calcium (8.4-10.2) mg/dL Total Protein (6.3-8.2) g/dL Albumin (3.5-5.0) g/dL 04/08/20 Range/Units 11:25 RBC (3.80-5.40) m/uL Hgb (11.4-16.0) gm/dL Hct (34.0-46.0) % MCV (80.0-100.0) fL MCH (25.0-35.0) pg MCHC (31.0-37.0) g/dL Lymphocytes # (1.0-4.8) k/uL ABG pCO2 (35-45) mmHg ABG pO2 (83-108) mmHg ABG HCO3 (21-25) mmol/L ABG Total CO2 (19-24) mmol/L ABG O2 Saturation (94-97) % Chloride (98-107) mmol/L Carbon Dioxide (22-30) mmol/L BUN (7-17) mg/dL Glucose (74-99) mg/dL POC Glucose (mg/dL) 208 H (75-99) mg/dL Calcium (8.4-10.2) mg/dL Total Protein (6.3-8.2) g/dL Albumin (3.5-5.0) g/dL Microbiology - Last 24 Hours (Table) 04/02/20 14:55 Blood Culture - Preliminary Blood No Growth after 120 hours Diabetes panel 04/08/20 Range/Units 04:00 Sodium 144 (137-145) mmol/L Potassium 4.1 (3.5-5.1) mmol/L Chloride 90 L (98-107) mmol/L Carbon Dioxide 54 H* (22-30) mmol/L BUN 36 H (7-17) mg/dL Creatinine 0.52 (0.52-1.04) mg/dL Glucose 157 H (74-99) mg/dL Calcium 8.3 L (8.4-10.2) mg/dL AST 16 (14-36) U/L ALT 11 (4-34) U/L Alkaline Phosphatase 61 (38-126) U/L Total Protein 6.1 L (6.3-8.2) g/dL Albumin 3.0 L (3.5-5.0) g/dL Calcium panel 04/08/20 Range/Units 04:00 Calcium 8.3 L (8.4-10.2) mg/dL Albumin 3.0 L (3.5-5.0) g/dL Pituitary panel 04/08/20 Range/Units 04:00 Sodium 144 (137-145) mmol/L Potassium 4.1 (3.5-5.1) mmol/L Chloride 90 L (98-107) mmol/L Carbon Dioxide 54 H* (22-30) mmol/L BUN 36 H (7-17) mg/dL Creatinine 0.52 (0.52-1.04) mg/dL Glucose 157 H (74-99) mg/dL Calcium 8.3 L (8.4-10.2) mg/dL Adrenal panel 04/08/20 Range/Units 04:00 Sodium 144 (137-145) mmol/L Potassium 4.1 (3.5-5.1) mmol/L Chloride 90 L (98-107) mmol/L Carbon Dioxide 54 H* (22-30) mmol/L BUN 36 H (7-17) mg/dL Creatinine 0.52 (0.52-1.04) mg/dL Glucose 157 H (74-99) mg/dL Calcium 8.3 L (8.4-10.2) mg/dL Total Bilirubin 0.3 (0.2-1.3) mg/dL AST 16 (14-36) U/L ALT 11 (4-34) U/L Alkaline Phosphatase 61 (38-126) U/L Total Protein 6.1 L (6.3-8.2) g/dL Albumin 3.0 L (3.5-5.0) g/dL Assessment and Plan (1) Pneumothorax, right Current Visit: Yes Status: Acute Code(s): J93.9 - PNEUMOTHORAX, UNSPECIFIED SNOMED Code(s): 018741235 (2) Pneumonia Current Visit: Yes Status: Acute Code(s): J18.9 - PNEUMONIA, UNSPECIFIED ORGANISM SNOMED Code(s): 644306620 (3) Sepsis Current Visit: Yes Status: Acute Code(s): A41.9 - SEPSIS, UNSPECIFIED ORGANISM SNOMED Code(s): 79899361 (4) IV drug user Current Visit: No Status: Acute Code(s): F19.90 - OTHER PSYCHOACTIVE SUBSTANCE USE, UNSPECIFIED, UNCOMPLICATED SNOMED Code(s): 063696631 (5) Respiratory failure with hypoxia Current Visit: Yes Status: Acute Code(s): J96.91 - RESPIRATORY FAILURE, UNSPECIFIED WITH HYPOXIA SNOMED Code(s): 22523390163588038 (6) Inadequate dietary intake of protein Current Visit: Yes Status: Acute Code(s): E63.9 - NUTRITIONAL DEFICIENCY, UNSPECIFIED SNOMED Code(s): 997931665
[2020-04-08 18:08] LABS: Glucose,Whole Blood 165 mg/dL (75-99)
[2020-04-08 18:49] LABS: Glucose,Whole Blood 154 mg/dL (75-99)
--- NOTE | 2020-04-08 22:57 | P.PN ---
Subjective Progress Note Date: 04/06/20 Principal diagnosis: Bilateral patchy groundglass opacities Secondary to pneumonia. Patient is a 29-year-old female with a known history of CLL currently in remission, history of DVT, seizure disorder and asthma, anxiety and history of IVDU last used 2 weeks ago came to ER with the complaints of cough, dyspnea and chest pain with cough. Patient does have history of IV drug abuse and stopped using approximately 2 weeks ago. Patient was seen at outside hospital in [place] for difficulty in breathing. Patient left AGAINST MEDICAL ADVICE. Patient came to [place] to see her family and has been having worsening symptoms again with cough and dyspnea. Chest x-ray showed diffuse bilateral pleural parenchymal changes. Laboratory data showed WBC 9.0, hemoglobin 9.0, MCV 72.9 and platelets 460 Sodium 137, potassium 4.4, BUN 18 and creatinine 0.58 Liver enzymes AST 29, ALT 16 and alk phos 99 Troponin times one 0.012 Coronavirus PCR and influenza A and B negative. CT angiogram showed no evidence of pulmonary embolism. Bilateral moderate patchy groundglass opacities concerning for Covid pneumonia. Recommend clinical correlation. 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 Age-indeterminate 1.2 cm right lung lower lobe nodule. She did have an anaphylactic reaction to her CT angiography. She was given steroids, Benadryl, Pepcid, and epinephrine. She had resolution in symptoms and stabilized blood pressure. Patient is currently on 2 L via nasal cannula with pulse ox 100%. Patient was saturating at 88% on room air on admission and was tachycardic. EKG showed sinus tachycardia. 04/03/2020 Patient is currently resting in the bed. Still having exertional dyspnea and unable to take deep breaths. Bilateral lung sounds are still diminished. Patient is being continued on antibiotics in the form of vancomycin and cefepime. Laboratory pressure WBC 9.9 and hemoglobin 7.6, due to recurrent bilateral pneumonias and areas of groundglass opacities ranging to pleural parenchymal thickening and infiltration possible bronchiolitis obliterans is also consideration. Pulmonary is planning for bronchoscopy tomorrow. Patient is being continued on IV steroids and breathing treatments and antibiotics and oxygen therapy. 04/04/2020 Patient is scheduled for bronchoscopy today. Medical records from [facility] were reviewed by pulmonary. Work-up including alpha-1 antitrypsin, cystic fibrosis, HIV, fungal, histoplasma cryptococcal and Aspergillus antibodies were all negative. Echocardiogram showed no valvular abnormalities or vegetations noted. Patient is still having shortness of breath and cough and chest tightness and wheezing. Exertional dyspnea. Patient remains on antibiotics in the form of vancomycin and cefepime and IV steroids and breathing treatments. decrease IV fluids to 50 cc/h. Encourage oral intake. 04/05/2020 Patient is currently in the intensive care unit. Patient underwent bronchoscopy and bronchial lavage yesterday. Patient was transferred to intensive care unit due to hypoxic respiratory failure. Initially was started on BiPAP and was transferred to MICU. Patient was initially intubated in the intensive care unit. Patient is currently sedated. Chest x-ray showed bilateral pleural thickening and bilateral airspace disease. Laboratory data showed no illicit 13.8, hemoglobin 7.2 and platelets 297 ABG showed pH of 7.32 and pCO2 62 and pO2 70 Sodium 138, potassium 4.8, bicarb is 32, BUN 14 and, calcium 7.6 Patient is being continued on antibiotics of vancomycin and cefepime and also on Solu-Medrol Cultures have been negative so far. 04/06/2020 Patient remained on mechanical ventilator. Currently sedated and is also on low-dose pressor support.. BAL fluid showed no growth so far. Chest x-ray showed improvement and pulmonary infiltrates bilaterally. Patient is being continued on antibiotics in the form of vancomycin and cefepime. Pulmonary is following closely. Laboratory data showed WBC 16.9, hemoglobin 7.5 and platelets 372 Sodium 139, potassium 4.2, bicarb is 45 and BUN 20 and creatinine 0.62, albumin 3.1 Review of systems could not be obtained from the patient. Current medications reviewed. Objective - Vital Signs Vital signs: Vital Signs Temp 98.4 F 04/06/20 12:00 Pulse 95 04/06/20 14:00 Resp 30 H 04/06/20 14:00 BP 102/54 04/06/20 14:00 Pulse Ox 98 04/06/20 14:00 Intake & Output 04/05/20 04/06/20 04/06/20 18:59 06:59 18:59 Intake Total 371.780 0246.739 991.076 Output Total 2315 640 1380 Balance -1356.837 478.739 -388.924 Weight 52.5 kg 47 kg 47 kg Intake: IV 240 623 534 Cefepime 2 gm In Sodium 100 100 Chloride 0.9% 100 ml @ 25 mls/hr IVPB Q12HR [facility] Rx #:[id number] Pressure bag 33 24 Sodium Chloride 0.9% 1, 240 240 160 000 ml @ 20 mls/hr IV . Q24H [facility] Rx#:[id number] Vancomycin 750 mg In 250 250 Sodium Chloride 0.9% 250 ml @ 125 mls/hr IVPB Q8HR [facility] Rx#:[id number] Intake, IV Titration 648.163 375.739 237.076 Amount Cefepime 2 gm In Sodium 100 Chloride 0.9% 100 ml @ 25 mls/hr IVPB Q12HR [facility] Rx #:[id number] Norepinephrine 32 mg In 2.488 3.089 27.661 Sodium Chloride 0.9% 218 ml @ 0.05 MCG/KG/MIN 1.23 mls/hr IV .Q24H [facility] Rx#: [id number] Vancomycin 750 mg In 500 Sodium Chloride 0.9% 250 ml @ 125 mls/hr IVPB Q8HR [facility] Rx#:[id number] fentaNYL (PF) 1,000 mcg 147.175 94.5 In Sodium Chloride 0.9% 80 ml @ Per Protocol IV . Q0M [facility] Rx#:[id number] propofoL 1,000 mg In 45.675 225.475 114.915 Empty Bag 1 bag @ Titrate IV .Q0M [facility] Rx#: [id number] Tube Feeding 40 120 130 Other 30 90 Output: Urine 2315 640 1380 Other: Voiding Method Indwelling Catheter Indwelling Catheter Indwelling Catheter # Bowel Movements 0 ABP, PAP, CO, CI - Last Documented Arterial Blood Pressure 104/44 - Exam PHYSICAL EXAMINATION: Patient is currently intubated and on mechanical ventilator. Sedated... HEENT: Normocephalic. Neck is supple. Pupils reactive. Nostrils clear. Oral cavity is moist. Ears reveal no drainage. Neck reveals no JVD, carotid bruits, or thyromegaly. CHEST EXAMINATION: Trachea is central. Symmetrical expansion.bilateral dimin ished air entry and wheezing and coarse sounds. CARDIAC: Normal S1, S2 with no gallops. No murmurs ABDOMEN: Soft. Bowel sounds normal. No organomegaly. No abdominal bruits. Extremities: reveal no edema. No clubbing or cyanosis Neurologically sedated and intubated. No gross focal deficits noted Skin: No rash or skin lesions. Psychiatric: Could not be assessed at this time. Musculoskeletal: No joint swelling or deformity. - Labs CBC & Chem 7: 04/08/20 04:00 04/08/20 04:00 Labs: Abnormal Lab Results - Last 24 Hours (Table) 04/04/20 04/05/20 04/06/20 Range/Units 14:12 17:39 01:45 WBC (3.8-10.6) k/uL RBC (3.80-5.40) m/uL Hgb (11.4-16.0) gm/dL Hct (34.0-46.0) % MCV (80.0-100.0) fL MCH (25.0-35.0) pg MCHC (31.0-37.0) g/dL RDW (11.5-15.5) % Neutrophils # (1.3-7.7) k/uL Lymphocytes # (1.0-4.8) k/uL ABG pH (7.35-7.45) ABG pCO2 (35-45) mmHg ABG pO2 (83-108) mmHg ABG HCO3 (21-25) mmol/L ABG Total CO2 (19-24) mmol/L ABG O2 Saturation (94-97) % Chloride (98-107) mmol/L Carbon Dioxide (22-30) mmol/L BUN (7-17) mg/dL Glucose (74-99) mg/dL POC Glucose (mg/dL) 122 H 142 H (75-99) mg/dL Total Protein (6.3-8.2) g/dL Albumin (3.5-5.0) g/dL Viral Test See Below A 04/06/20 04/06/20 04/06/20 Range/Units 04:15 04:15 05:05 WBC 16.9 H (3.8-10.6) k/uL RBC 3.45 L (3.80-5.40) m/uL Hgb 7.5 L (11.4-16.0) gm/dL Hct 25.9 L (34.0-46.0) % MCV 75.2 L (80.0-100.0) fL MCH 21.8 L (25.0-35.0) pg MCHC 29.0 L (31.0-37.0) g/dL RDW 15.8 H (11.5-15.5) % Neutrophils # 15.2 H (1.3-7.7) k/uL Lymphocytes # 0.9 L (1.0-4.8) k/uL ABG pH 7.31 L (7.35-7.45) ABG pCO2 88 H* (35-45) mmHg ABG pO2 113 H (83-108) mmHg ABG HCO3 44 H* (21-25) mmol/L ABG Total CO2 47 H (19-24) mmol/L ABG O2 Saturation 99.2 H (94-97) % Chloride 94 L (98-107) mmol/L Carbon Dioxide 45 H* (22-30) mmol/L BUN 20 H (7-17) mg/dL Glucose 128 H (74-99) mg/dL POC Glucose (mg/dL) (75-99) mg/dL Total Protein 6.2 L (6.3-8.2) g/dL Albumin 3.1 L (3.5-5.0) g/dL Viral Test 04/06/20 04/06/20 04/06/20 Range/Units 06:11 11:38 11:55 WBC (3.8-10.6) k/uL RBC (3.80-5.40) m/uL Hgb (11.4-16.0) gm/dL Hct (34.0-46.0) % MCV (80.0-100.0) fL MCH (25.0-35.0) pg MCHC (31.0-37.0) g/dL RDW (11.5-15.5) % Neutrophils # (1.3-7.7) k/uL Lymphocytes # (1.0-4.8) k/uL ABG pH 7.22 L (7.35-7.45) ABG pCO2 114 H* (35-45) mmHg ABG pO2 112 H (83-108) mmHg ABG HCO3 47 H* (21-25) mmol/L ABG Total CO2 50 H (19-24) mmol/L ABG O2 Saturation 98.4 H (94-97) % Chloride (98-107) mmol/L Carbon Dioxide (22-30) mmol/L BUN (7-17) mg/dL Glucose (74-99) mg/dL POC Glucose (mg/dL) 143 H 139 H (75-99) mg/dL Total Protein (6.3-8.2) g/dL Albumin (3.5-5.0) g/dL Viral Test 04/06/20 Range/Units 13:19 WBC (3.8-10.6) k/uL RBC (3.80-5.40) m/uL Hgb (11.4-16.0) gm/dL Hct (34.0-46.0) % MCV (80.0-100.0) fL MCH (25.0-35.0) pg MCHC (31.0-37.0) g/dL RDW (11.5-15.5) % Neutrophils # (1.3-7.7) k/uL Lymphocytes # (1.0-4.8) k/uL ABG pH 7.26 L (7.35-7.45) ABG pCO2 104 H* (35-45) mmHg ABG pO2 132 H (83-108) mmHg ABG HCO3 47 H* (21-25) mmol/L ABG Total CO2 50 H (19-24) mmol/L ABG O2 Saturation 99.4 H (94-97) % Chloride (98-107) mmol/L Carbon Dioxide (22-30) mmol/L BUN (7-17) mg/dL Glucose (74-99) mg/dL POC Glucose (mg/dL) (75-99) mg/dL Total Protein (6.3-8.2) g/dL Albumin (3.5-5.0) g/dL Viral Test Microbiology - Last 24 Hours (Table) 04/04/20 14:12 Gram Stain - Final Bronchial Washings - Right Bronchial Washings Culture - Final 04/05/20 11:11 Gram Stain - Preliminary Sputum Sputum Culture - Preliminary 04/04/20 14:12 Acid Fast Bacilli Smear - Final Bronchial Washings - Right Acid Fast Bacilli Culture - Preliminary 04/02/20 14:55 Blood Culture - Preliminary Blood No Growth after 72 hours Assessment and Plan Assessment: Bilateral patchy groundglass opacities Secondary to pneumonia. Patient does have recurrent admissions with pneumonia. Acute hypoxic respiratory failure secondary to pneumonia currently patient is on mechanical ventilator. Acute asthma exacerbation susected COVID-19 pneumonia. pCR negative s/p Anaphylactic reaction to iodinated contrast in the ER. History of ALL currently in remission. Anxiety IV drug use. Last used 2 weeks ago Currently everyday smoker DVT prophylaxis with subcu Lovenox. Plan: Patient is on mechanical ventilator. Patient will be continued IV steroids and breathing treatments. Continue with antibiotics in the form of vancomycin and cefepime. COVID-19 PCR and influenza PCR is negative. Patient is status post bronchoscopy. Cultures have been negative. Pulmonary is following. Further recommendations based on clinical course. Time with Patient: Greater than 30
--- NOTE | 2020-04-08 23:00 | P.PN ---
Subjective Progress Note Date: 04/07/20 Principal diagnosis: Bilateral patchy groundglass opacities Secondary to pneumonia. Patient is a 29-year-old female with a known history of CLL currently in remission, history of DVT, seizure disorder and asthma, anxiety and history of IVDU last used 2 weeks ago came to ER with the complaints of cough, dyspnea and chest pain with cough. Patient does have history of IV drug abuse and stopped using approximately 2 weeks ago. Patient was seen at outside hospital in [place] for difficulty in breathing. Patient left AGAINST MEDICAL ADVICE. Patient came to [place] to see her family and has been having worsening symptoms again with cough and dyspnea. Chest x-ray showed diffuse bilateral pleural parenchymal changes. Laboratory data showed WBC 9.0, hemoglobin 9.0, MCV 72.9 and platelets 460 Sodium 137, potassium 4.4, BUN 18 and creatinine 0.58 Liver enzymes AST 29, ALT 16 and alk phos 99 Troponin times one 0.012 Coronavirus PCR and influenza A and B negative. CT angiogram showed no evidence of pulmonary embolism. Bilateral moderate patchy groundglass opacities concerning for Covid pneumonia. Recommend clinical correlation. 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 Age-indeterminate 1.2 cm right lung lower lobe nodule. She did have an anaphylactic reaction to her CT angiography. She was given steroids, Benadryl, Pepcid, and epinephrine. She had resolution in symptoms and stabilized blood pressure. Patient is currently on 2 L via nasal cannula with pulse ox 100%. Patient was saturating at 88% on room air on admission and was tachycardic. EKG showed sinus tachycardia. 04/03/2020 Patient is currently resting in the bed. Still having exertional dyspnea and unable to take deep breaths. Bilateral lung sounds are still diminished. Patient is being continued on antibiotics in the form of vancomycin and cefepime. Laboratory pressure WBC 9.9 and hemoglobin 7.6, due to recurrent bilateral pneumonias and areas of groundglass opacities ranging to pleural parenchymal thickening and infiltration possible bronchiolitis obliterans is also consideration. Pulmonary is planning for bronchoscopy tomorrow. Patient is being continued on IV steroids and breathing treatments and antibiotics and oxygen therapy. 04/04/2020 Patient is scheduled for bronchoscopy today. Medical records from [facility] were reviewed by pulmonary. Work-up including alpha-1 antitrypsin, cystic fibrosis, HIV, fungal, histoplasma cryptococcal and Aspergillus antibodies were all negative. Echocardiogram showed no valvular abnormalities or vegetations noted. Patient is still having shortness of breath and cough and chest tightness and wheezing. Exertional dyspnea. Patient remains on antibiotics in the form of vancomycin and cefepime and IV steroids and breathing treatments. decrease IV fluids to 50 cc/h. Encourage oral intake. 04/05/2020 Patient is currently in the intensive care unit. Patient underwent bronchoscopy and bronchial lavage yesterday. Patient was transferred to intensive care unit due to hypoxic respiratory failure. Initially was started on BiPAP and was transferred to MICU. Patient was initially intubated in the intensive care unit. Patient is currently sedated. Chest x-ray showed bilateral pleural thickening and bilateral airspace disease. Laboratory data showed no illicit 13.8, hemoglobin 7.2 and platelets 297 ABG showed pH of 7.32 and pCO2 62 and pO2 70 Sodium 138, potassium 4.8, bicarb is 32, BUN 14 and, calcium 7.6 Patient is being continued on antibiotics of vancomycin and cefepime and also on Solu-Medrol Cultures have been negative so far. 04/06/2020 Patient remained on mechanical ventilator. Currently sedated and is also on low-dose pressor support.. BAL fluid showed no growth so far. Chest x-ray showed improvement and pulmonary infiltrates bilaterally. Patient is being continued on antibiotics in the form of vancomycin and cefepime. Pulmonary is following closely. Laboratory data showed WBC 16.9, hemoglobin 7.5 and platelets 372 Sodium 139, potassium 4.2, bicarb is 45 and BUN 20 and creatinine 0.62, albumin 3.1 04/07/2020 Patient remained on mechanical ventilator. Chest x-ray showed there appears to be new right-sided pneumothorax estimated at 10 to 15%. The tip of the endotracheal tube is at the origin of the right main stem bronchus and should be pulled back [address] of the chest showed persistent moderate to large right pneumothorax. Ongoing bilateral diffuse airspace disease more pronounced on the current CT. Small bilateral pleural effusions. CT surgery was consulted for chest tube placement. Patient is being continued on tube feedings. Remains on pressor support. Continued on antibiotics in the hopes of vancomycin and cefepime. Laboratory data showed WBC came down to 10.4, hemoglobin 7.2, platelets" 325. Sodium 141 potassium 4.1 bicarb is 50 BUN 3020 creatinine 0.53 and albumin 2.8 Review of systems could not be obtained from the patient. Current medications reviewed. Objective - Vital Signs Vital signs: Vital Signs Temp 98.9 F 04/07/20 16:00 Pulse 89 04/07/20 19:00 Resp 24 04/07/20 19:00 BP 96/56 04/07/20 19:00 Pulse Ox 98 04/07/20 19:00 Intake & Output 04/07/20 04/07/20 04/08/20 06:59 18:59 06:59 Intake Total 7203.525 6656.369 56 Output Total 1170 1590 125 Balance 304.381 -16.631 -69 Weight 47.2 kg Intake: IV 626 626 23 Cefepime 2 gm In Sodium 100 100 Chloride 0.9% 100 ml @ 25 mls/hr IVPB Q12HR [facility] Rx #:[id number] Pressure bag 36 36 3 Sodium Chloride 0.9% 1, 240 240 20 000 ml @ 20 mls/hr IV . Q24H [facility] Rx#:[id number] Vancomycin 750 mg In 250 250 Sodium Chloride 0.9% 250 ml @ 125 mls/hr IVPB Q8HR [facility] Rx#:[id number] Intake, IV Titration 362.381 395.369 0 Amount Norepinephrine 32 mg In 8.911 20.732 0 Sodium Chloride 0.9% 218 ml @ 0.05 MCG/KG/MIN 1.23 mls/hr IV .Q24H [facility] Rx#: [id number] fentaNYL (PF) 1,000 mcg 195.55 197.125 In Sodium Chloride 0.9% 80 ml @ Per Protocol IV . Q0M [facility] Rx#:[id number] propofoL 1,000 mg In 157.920 177.512 Empty Bag 1 bag @ Titrate IV .Q0M [facility] Rx#: [id number] Tube Feeding 396 462 33 Other 90 90 Output: Urine 1170 1590 125 Stool 0 Other: Voiding Method Indwelling Catheter Indwelling Catheter # Voids 1 # Bowel Movements 0 ABP, PAP, CO, CI - Last Documented Arterial Blood Pressure 105/42 - Exam PHYSICAL EXAMINATION: Patient is currently intubated and on mechanical ventilator. Sedated... HEENT: Normocephalic. Neck is supple. Pupils reactive. Nostrils clear. Oral cavity is moist. Ears reveal no drainage. Neck reveals no JVD, carotid bruits, or thyromegaly. CHEST EXAMINATION: Trachea is central. Symmetrical expansion.bilateral diminished air entry and wheezing and coarse sounds. CARDIAC: Normal S1, S2 with no gallops. No murmurs ABDOMEN: Soft. Bowel sounds normal. No organomegaly. No abdominal bruits. Extremities: reveal no edema. No clubbing or cyanosis Neurologically sedated and intubated. No gross focal deficits noted Skin: No rash or skin lesions. Psychiatric: Could not be assessed at this time. Musculoskeletal: No joint swelling or deformity. - Labs CBC & Chem 7: 04/08/20 04:00 04/08/20 04:00 Labs: Abnormal Lab Results - Last 24 Hours (Table) 04/06/20 04/07/20 04/07/20 Range/Units 23:36 04:05 04:05 RBC 3.25 L (3.80-5.40) m/uL Hgb 7.2 L (11.4-16.0) gm/dL Hct 24.6 L (34.0-46.0) % MCV 75.8 L (80.0-100.0) fL MCH 22.2 L (25.0-35.0) pg MCHC 29.3 L (31.0-37.0) g/dL Neutrophils # 8.9 H (1.3-7.7) k/uL Lymphocytes # 0.8 L (1.0-4.8) k/uL ABG pH (7.35-7.45) ABG pCO2 (35-45) mmHg ABG pO2 (83-108) mmHg ABG HCO3 (21-25) mmol/L ABG Total CO2 (19-24) mmol/L ABG O2 Saturation (94-97) % Chloride 93 L (98-107) mmol/L Carbon Dioxide 50 H* (22-30) mmol/L BUN 32 H (7-17) mg/dL Glucose 150 H (74-99) mg/dL POC Glucose (mg/dL) 149 H (75-99) mg/dL Total Protein 5.8 L (6.3-8.2) g/dL Albumin 2.8 L (3.5-5.0) g/dL 04/07/20 04/07/20 04/07/20 Range/Units 05:01 05:53 10:59 RBC (3.80-5.40) m/uL Hgb (11.4-16.0) gm/dL Hct (34.0-46.0) % MCV (80.0-100.0) fL MCH (25.0-35.0) pg MCHC (31.0-37.0) g/dL Neutrophils # (1.3-7.7) k/uL Lymphocytes # (1.0-4.8) k/uL ABG pH 7.47 H (7.35-7.45) ABG pCO2 69 H 89 H* (35-45) mmHg ABG pO2 168 H (83-108) mmHg ABG HCO3 50 H* 51 H* (21-25) mmol/L ABG Total CO2 53 H 54 H (19-24) mmol/L ABG O2 Saturation 100.0 H 98.3 H (94-97) % Chloride (98-107) mmol/L Carbon Dioxide (22-30) mmol/L BUN (7-17) mg/dL Glucose (74-99) mg/dL POC Glucose (mg/dL) 142 H (75-99) mg/dL Total Protein (6.3-8.2) g/dL Albumin (3.5-5.0) g/dL 04/07/20 04/07/20 Range/Units 11:45 17:56 RBC (3.80-5.40) m/uL Hgb (11.4-16.0) gm/dL Hct (34.0-46.0) % MCV (80.0-100.0) fL MCH (25.0-35.0) pg MCHC (31.0-37.0) g/dL Neutrophils # (1.3-7.7) k/uL Lymphocytes # (1.0-4.8) k/uL ABG pH (7.35-7.45) ABG pCO2 (35-45) mmHg ABG pO2 (83-108) mmHg ABG HCO3 (21-25) mmol/L ABG Total CO2 (19-24) mmol/L ABG O2 Saturation (94-97) % Chloride (98-107) mmol/L Carbon Dioxide (22-30) mmol/L BUN (7-17) mg/dL Glucose (74-99) mg/dL POC Glucose (mg/dL) 162 H 173 H (75-99) mg/dL Total Protein (6.3-8.2) g/dL Albumin (3.5-5.0) g/dL Microbiology - Last 24 Hours (Table) 04/02/20 14:55 Blood Culture - Preliminary Blood No Growth after 120 hours 04/05/20 11:11 Gram Stain - Final Sputum Sputum Culture - Final Assessment and Plan Assessment: Bilateral patchy groundglass opacities Secondary to pneumonia. Patient does have recurrent admissions with pneumonia. Acute hypoxic respiratory failure secondary to pneumonia currently patient is on mechanical ventilator. Moderate to large right-sided pneumothorax. Acute asthma exacerbation susected COVID-19 pneumonia. pCR negative s/p Anaphylactic reaction to iodinated contrast in the ER. History of ALL currently in remission. Anxiety IV drug use. Last used 2 weeks ago Currently everyday smoker DVT prophylaxis with subcu Lovenox. Plan: Patient is on mechanical ventilator. Patient will be continued IV steroids and breathing treatments. Continue with antibiotics in the form of vancomycin and cefepime. COVID-19 PCR and influenza PCR is negative. Patient is status post bronchoscopy. Cultures have been negative. Pulmonary is following. Further recommendations based on clinical course. Time with Patient: Greater than 30
--- NOTE | 2020-04-08 23:03 | P.PN ---
Subjective Progress Note Date: 04/08/20 Principal diagnosis: Bilateral patchy groundglass opacities Secondary to pneumonia. Patient is a 29-year-old female with a known history of CLL currently in remission, history of DVT, seizure disorder and asthma, anxiety and history of IVDU last used 2 weeks ago came to ER with the complaints of cough, dyspnea and chest pain with cough. Patient does have history of IV drug abuse and stopped using approximately 2 weeks ago. Patient was seen at outside hospital in [place] for difficulty in breathing. Patient left AGAINST MEDICAL ADVICE. Patient came to [place] to see her family and has been having worsening symptoms again with cough and dyspnea. Chest x-ray showed diffuse bilateral pleural parenchymal changes. Laboratory data showed WBC 9.0, hemoglobin 9.0, MCV 72.9 and platelets 460 Sodium 137, potassium 4.4, BUN 18 and creatinine 0.58 Liver enzymes AST 29, ALT 16 and alk phos 99 Troponin times one 0.012 Coronavirus PCR and influenza A and B negative. CT angiogram showed no evidence of pulmonary embolism. Bilateral moderate patchy groundglass opacities concerning for Covid pneumonia. Recommend clinical correlation. 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 Age-indeterminate 1.2 cm right lung lower lobe nodule. She did have an anaphylactic reaction to her CT angiography. She was given steroids, Benadryl, Pepcid, and epinephrine. She had resolution in symptoms and stabilized blood pressure. Patient is currently on 2 L via nasal cannula with pulse ox 100%. Patient was saturating at 88% on room air on admission and was tachycardic. EKG showed sinus tachycardia. 04/03/2020 Patient is currently resting in the bed. Still having exertional dyspnea and unable to take deep breaths. Bilateral lung sounds are still diminished. Patient is being continued on antibiotics in the form of vancomycin and cefepime. Laboratory pressure WBC 9.9 and hemoglobin 7.6, due to recurrent bilateral pneumonias and areas of groundglass opacities ranging to pleural parenchymal thickening and infiltration possible bronchiolitis obliterans is also consideration. Pulmonary is planning for bronchoscopy tomorrow. Patient is being continued on IV steroids and breathing treatments and antibiotics and oxygen therapy. 04/04/2020 Patient is scheduled for bronchoscopy today. Medical records from [facility] were reviewed by pulmonary. Work-up including alpha-1 antitrypsin, cystic fibrosis, HIV, fungal, histoplasma cryptococcal and Aspergillus antibodies were all negative. Echocardiogram showed no valvular abnormalities or vegetations noted. Patient is still having shortness of breath and cough and chest tightness and wheezing. Exertional dyspnea. Patient remains on antibiotics in the form of vancomycin and cefepime and IV steroids and breathing treatments. decrease IV fluids to 50 cc/h. Encourage oral intake. 04/05/2020 Patient is currently in the intensive care unit. Patient underwent bronchoscopy and bronchial lavage yesterday. Patient was transferred to intensive care unit due to hypoxic respiratory failure. Initially was started on BiPAP and was transferred to MICU. Patient was initially intubated in the intensive care unit. Patient is currently sedated. Chest x-ray showed bilateral pleural thickening and bilateral airspace disease. Laboratory data showed no illicit 13.8, hemoglobin 7.2 and platelets 297 ABG showed pH of 7.32 and pCO2 62 and pO2 70 Sodium 138, potassium 4.8, bicarb is 32, BUN 14 and, calcium 7.6 Patient is being continued on antibiotics of vancomycin and cefepime and also on Solu-Medrol Cultures have been negative so far. 04/06/2020 Patient remained on mechanical ventilator. Currently sedated and is also on low-dose pressor support.. BAL fluid showed no growth so far. Chest x-ray showed improvement and pulmonary infiltrates bilaterally. Patient is being continued on antibiotics in the form of vancomycin and cefepime. Pulmonary is following closely. Laboratory data showed WBC 16.9, hemoglobin 7.5 and platelets 372 Sodium 139, potassium 4.2, bicarb is 45 and BUN 20 and creatinine 0.62, albumin 3.1 04/07/2020 Patient remained on mechanical ventilator. Chest x-ray showed there appears to be new right-sided pneumothorax estimated at 10 to 15%. The tip of the endotracheal tube is at the origin of the right main stem bronchus and should be pulled back [address] of the chest showed persistent moderate to large right pneumothorax. Ongoing bilateral diffuse airspace disease more pronounced on the current CT. Small bilateral pleural effusions. CT surgery was consulted for chest tube placement. Patient is being continued on tube feedings. Remains on pressor support. Continued on antibiotics in the hopes of vancomycin and cefepime. Laboratory data showed WBC came down to 10.4, hemoglobin 7.2, platelets" 325. Sodium 141 potassium 4.1 bicarb is 50 BUN 3020 creatinine 0.53 and albumin 2.8 04/07/2020 Patient remains on mechanical ventilator. Patient is on low-dose pressor support. Status post chest tube placement for right-sided pneumothorax. Chest x-ray showed stable 15 to 20% right-sided pneumothorax with chest tube noted. Diffuse pleural parenchymal changes unchanged correlate for pneumonia. Laboratory data showed WBC 8.7, hemoglobin 7.1 platelets 235 Bicarb is 54, BUN 36 and creatinine 0.52 Patient is being continued on tube feedings. General surgery was consulted for trach and PEG tube placement. Review of systems could not be obtained from the patient. Current medications reviewed. Objective - Vital Signs Vital signs: Vital Signs Temp 99.3 F 04/08/20 16:00 Pulse 107 H 04/08/20 16:00 Resp 24 04/08/20 16:00 BP 101/64 04/08/20 16:00 Pulse Ox 98 04/08/20 16:00 Intake & Output 04/07/20 04/08/20 04/08/20 18:59 06:59 18:59 Intake Total 1470.545 4113.887 1001.281 Output Total 1590 1535 1155 Balance -16.631 -396.113 -153.719 Weight 53 kg Intake: IV 626 376 307 Cefepime 2 gm In Sodium 100 100 100 Chloride 0.9% 100 ml @ 25 mls/hr IVPB Q12HR [facility] Rx #:[id number] Pressure bag 36 36 27 Sodium Chloride 0.9% 1, 240 240 180 000 ml @ 20 mls/hr IV . Q24H [facility] Rx#:[id number] Vancomycin 750 mg In 250 Sodium Chloride 0.9% 250 ml @ 125 mls/hr IVPB Q8HR [facility] Rx#:[id number] Intake, IV Titration 395.369 276.887 277.281 Amount Norepinephrine 32 mg In 20.732 5.523 6.734 Sodium Chloride 0.9% 218 ml @ 0.05 MCG/KG/MIN 1.23 mls/hr IV .Q24H [facility] Rx#: [id number] fentaNYL (PF) 1,000 mcg 197.125 100 200 In Sodium Chloride 0.9% 80 ml @ Per Protocol IV . Q0M [facility] Rx#:[id number] propofoL 1,000 mg In 177.512 171.364 70.547 Empty Bag 1 bag @ Titrate IV .Q0M [facility] Rx#: [id number] Tube Feeding 462 396 297 Other 90 90 120 Output: Chest Tube Drainage 15 Chest Tube Right 15 Urine 1590 1520 1155 Stool 0 Other: Voiding Method Indwelling Catheter Indwelling Catheter Indwelling Catheter # Voids 1 # Bowel Movements 0 ABP, PAP, CO, CI - Last Documented Arterial Blood Pressure 117/49 - Exam PHYSICAL EXAMINATION: Patient is currently intubated and on mechanical ventilator. Sedated... HEENT: Normocephalic. Neck is supple. Pupils reactive. Nostrils clear. Oral cavity is moist. Ears reveal no drainage. Neck reveals no JVD, carotid bruits, or thyromegaly. CHEST EXAMINATION: Trachea is central. Symmetrical expansion.bilateral diminished air entry and wheezing and coarse sounds. Right-sided chest tube in place. CARDIAC: Normal S1, S2 with no gallops. No murmurs ABDOMEN: Soft. Bowel sounds normal. No organomegaly. No abdominal bruits. Extremities: reveal no edema. No clubbing or cyanosis Neurologically sedated and intubated. No gross focal deficits noted Skin: No rash or skin lesions. Psychiatric: Could not be assessed at this time. Musculoskeletal: No joint swelling or deformity. - Labs CBC & Chem 7: 04/08/20 04:00 04/08/20 04:00 Labs: Abnormal Lab Results - Last 24 Hours (Table) 04/07/20 04/07/20 04/08/20 Range/Units 17:56 23:21 04:00 RBC (3.80-5.40) m/uL Hgb (11.4-16.0) gm/dL Hct (34.0-46.0) % MCV (80.0-100.0) fL MCH (25.0-35.0) pg MCHC (31.0-37.0) g/dL Lymphocytes # (1.0-4.8) k/uL ABG pCO2 (35-45) mmHg ABG pO2 (83-108) mmHg ABG HCO3 (21-25) mmol/L ABG Total CO2 (19-24) mmol/L ABG O2 Saturation (94-97) % Chloride 90 L (98-107) mmol/L Carbon Dioxide 54 H* (22-30) mmol/L BUN 36 H (7-17) mg/dL Glucose 157 H (74-99) mg/dL POC Glucose (mg/dL) 173 H 141 H (75-99) mg/dL Calcium 8.3 L (8.4-10.2) mg/dL Total Protein 6.1 L (6.3-8.2) g/dL Albumin 3.0 L (3.5-5.0) g/dL 04/08/20 04/08/20 04/08/20 Range/Units 04:00 05:00 05:13 RBC 3.33 L (3.80-5.40) m/uL Hgb 7.2 L (11.4-16.0) gm/dL Hct 25.2 L (34.0-46.0) % MCV 75.8 L (80.0-100.0) fL MCH 21.5 L (25.0-35.0) pg MCHC 28.4 L (31.0-37.0) g/dL Lymphocytes # 0.8 L (1.0-4.8) k/uL ABG pCO2 84 H* (35-45) mmHg ABG pO2 111 H (83-108) mmHg ABG HCO3 55 H* (21-25) mmol/L ABG Total CO2 58 H (19-24) mmol/L ABG O2 Saturation 99.6 H (94-97) % Chloride (98-107) mmol/L Carbon Dioxide (22-30) mmol/L BUN (7-17) mg/dL Glucose (74-99) mg/dL POC Glucose (mg/dL) 159 H (75-99) mg/dL Calcium (8.4-10.2) mg/dL Total Protein (6.3-8.2) g/dL Albumin (3.5-5.0) g/dL 04/08/20 Range/Units 11:25 RBC (3.80-5.40) m/uL Hgb (11.4-16.0) gm/dL Hct (34.0-46.0) % MCV (80.0-100.0) fL MCH (25.0-35.0) pg MCHC (31.0-37.0) g/dL Lymphocytes # (1.0-4.8) k/uL ABG pCO2 (35-45) mmHg ABG pO2 (83-108) mmHg ABG HCO3 (21-25) mmol/L ABG Total CO2 (19-24) mmol/L ABG O2 Saturation (94-97) % Chloride (98-107) mmol/L Carbon Dioxide (22-30) mmol/L BUN (7-17) mg/dL Glucose (74-99) mg/dL POC Glucose (mg/dL) 208 H (75-99) mg/dL Calcium (8.4-10.2) mg/dL Total Protein (6.3-8.2) g/dL Albumin (3.5-5.0) g/dL Microbiology - Last 24 Hours (Table) 04/02/20 14:55 Blood Culture - Preliminary Blood No Growth after 120 hours Assessment and Plan Assessment: Bilateral patchy groundglass opacities Secondary to pneumonia. Patient does have recurrent admissions with pneumonia. Acute hypoxic respiratory failure secondary to pneumonia currently patient is on mechanical ventilator. Moderate to large right-sided pneumothorax. Right-sided chest tube in place. Acute asthma exacerbation susected COVID-19 pneumonia. pCR negative s/p Anaphylactic reaction to iodinated contrast in the ER. History of ALL currently in remission. Anxiety IV drug use. Last used 2 weeks ago Currently everyday smoker DVT prophylaxis with subcu Lovenox. Plan: Patient is on mechanical ventilator. Patient to be continued IV steroids and breathing treatments. Continue with antibiotics in the form of vancomycin and cefepime. COVID-19 PCR and influenza PCR is negative. Patient is status post bronchoscopy. Cultures have been negative. Pulmonary is following. Further recommendations based on clinical course. Time with Patient: Greater than 30
[2020-04-08 23:44] LABS: Glucose,Whole Blood 161 mg/dL (75-99)
--- NOTE | 2020-04-09 | PN ---
PROGRESS NOTE DATE OF SERVICE: 04/08/2020 REASON FOR FOLLOWUP: 1. Pneumonia. 2. Positive bronch culture with CMV. INTERVAL HISTORY: The patient is currently afebrile. She is hemodynamically stable. FiO2 is currently stable at 40%. No significant purulent secretion through the ET or any diarrhea has been reported. PHYSICAL EXAMINATION: Blood pressure is a 122/57, pulse of 98, temperature 98. She is 98% on 40% FiO2. General description is a middle-aged female lying in bed in no distress. RESPIRATORY SYSTEM: Unlabored breathing, decreased breath sounds at the bases. No wheeze. HEART: S1, S2. Regular rate and rhythm. ABDOMEN: Soft, no tenderness. LABS: Hemoglobin 7.2, white count 8.7, BUN of 36, creatinine 0.52. DIAGNOSTIC IMPRESSION AND PLAN: The patient with acute respiratory failure which is multifactorial in this patient who did have a component of pneumonia. Bronch culture has been negative for resistant pathogen while study positive for CMV more likely and not behaving as CMV pneumonia. Patient is covered with cefepime and cefepime to continue and monitor clinical course closely. MMODL / IJN: [id number] /
[2020-04-09] MEDS: fentaNYL (PF) 1,000 MCG in SODIUM CHLORIDE 0.9% 80 ML IV SCH ×2 (04:25→09:51)
[2020-04-09] MEDS: SODIUM CHLORIDE 0.9% 1,000 ML IV SCH ×3 (04:31→16:39)
[2020-04-09 04:51] LABS: ABG PH 7.34 (7.35-7.45); ABG PO2 148 mmHg (83-108); ABG TCO2 42 mmol/L (19-24)
[2020-04-09 04:53] LABS: ABG HCO3 40 mmol/L (21-25); ABG PCO2 74 mmHg (35-45); Allen Test Performed? no
[2020-04-09 05:27] LABS: Basophils % (A) 0 %; Eosinophils % (A) 0 %; HCT 27.5 % (34.0-46.0); HGB 7.8 gm/dL (11.4-16.0); Hypochromasia Marked; Lymphocytes # (A) 0.8 k/uL (1.0-4.8); Lymphocytes % (A) 10 %; MCH 21.7 pg (25.0-35.0); MCHC 28.4 g/dL (31.0-37.0); MCV 76.6 fL (80.0-100.0); Mean Platelet Volume 8.4; Microcytosis Slight; Monocytes # (A) 0.2 k/uL (0-1.0); Monocytes % (A) 3 %; Neutrophils # (A) 6.5 k/uL (1.3-7.7); Neutrophils % (A) 86 %; Platelet Count 264 k/uL (150-450); RBC 3.59 m/uL (3.80-5.40); RDW 15.7 % (11.5-15.5); WBC 7.6 k/uL (3.8-10.6)
[2020-04-09 05:39] LABS: ALT 12 U/L (4-34); AST 21 U/L (14-36); African American GFR (CKD) >90 (>60 ml/min/1.73 sqM); Albumin 3.5 g/dL (3.5-5.0); Alkaline Phosphatase 58 U/L (38-126); Blood Urea Nitrogen 32 mg/dL (7-17); Calcium 8.9 mg/dL (8.4-10.2); Chloride 101 mmol/L (98-107); Glucose 203 mg/dL (74-99); Non-African American GFR(CKD) >90 (>60 ml/min/1.73 sqM); Potassium 4.3 mmol/L (3.5-5.1); Sodium 143 mmol/L (137-145); Total Bilirubin 0.3 mg/dL (0.2-1.3); Total Protein 6.7 g/dL (6.3-8.2)
[2020-04-09 05:45] LABS: Anion Gap 3 mmol/L
[2020-04-09 05:56] LABS: Glucose,Whole Blood 158 mg/dL (75-99)
[2020-04-09 06:00] LABS: Carbon Dioxide 39 mmol/L (22-30)
[2020-04-09] MEDS: methylPREDNISolone SOD SUCCI 125 MG/2 ML VIAL IV SCH ×3 (06:18→17:12)
[2020-04-09] MEDS: INSULIN ASPART (NovoLOG) 100 UNIT/ML VIAL SQ SCH ×3 (06:18→16:50)
[2020-04-09] MEDS: FERROUS SULFATE 325 MG TAB PO SCH ×2 (06:30→14:36)
[2020-04-09] MEDS: IPRATROPIUM-ALBUTEROL 3 ML NEB INHALATION SCH ×4 (07:03→19:19)
--- NOTE | 2020-04-09 09:13 | XR ---
EXAMINATION TYPE: XR chest 1V portable DATE OF EXAM: 04/09/2020 COMPARISON: 04/08/2020 INDICATION: Tube placement TECHNIQUE: Single frontal view of the chest is obtained. FINDINGS: The heart size is normal. The pulmonary vasculature is normal. Minimal infiltrate is present (greater at the left apex. There is interval development of a moderate left thorax. A loculated right pneumothorax remains prese nt. Right-sided chest tube remains in position. IMPRESSION: 1. Bilateral lung pneumothoraces. Right loculated pneumothorax stable. There is interval development of the moderate left pneumothorax. Report was called to the ICU by Dr. Mendiola by telephone 0910 hour s 04/09/2020.
[2020-04-09] MEDS ORDERED: CISATRACURIUM 2 MG/ML 5 ML VIAL IV ONE (09:35)
[2020-04-09] MEDS ORDERED: LIDOCAINE 1% INJ 10MG/ML (20 ML MDV) ONE (09:39)
--- NOTE | 2020-04-09 09:43 | XR ---
EXAMINATION TYPE: XR chest 1V portable DATE OF EXAM: 04/09/2020 COMPARISON: 04/09/2020 earlier exam INDICATION: Pneumothorax TECHNIQUE: Single frontal view of the chest is obtained. FINDINGS: The heart size is normal. The pulmonary vasculature is normal. Mild increased densities within the lung saavedra suspicious for left upper lung field Bilateral lung pneumothorax is again evident and appears stable. Right-sided chest tube is stable. Endotracheal tube tip remains above the sandra. Nasogastric tube tr ansverses the thorax with tip in the left upper quadrant of the abdomen. IMPRESSION: 1. Stable bilateral lung pneumothoraces.
[2020-04-09] MEDS: CHLORHEXIDINE GLUCONATE 15 ML CUP MUCOUS MEM SCH ×2 (10:08→22:22)
[2020-04-09] MEDS: CEFEPIME 2 GM in SODIUM CHLORIDE 0.9% 100 ML IVPB SCH ×2 (10:08→22:21)
[2020-04-09] MEDS: busPIRone HCl 5 MG TAB PO SCH ×2 (10:08→22:21)
[2020-04-09] MEDS: ENOXAPARIN 40 MG/0.4 ML SYRINGE SQ SCH (10:09)
[2020-04-09] MEDS: acetaZOLAMIDE 250 MG TAB PO SCH (10:09)
[2020-04-09] MEDS: FUROSEMIDE 10 MG/ML 2 ML VIAL IV SCH (10:09)
--- NOTE | 2020-04-09 10:29 | P.PN ---
Subjective Progress Note Date: 04/09/20 CHIEF COMPLAINT: Hypoxia HISTORY OF PRESENT ILLNESS: The patient is a 29-year-old female pre-existing his tory of methamphetamine abuse including IV drug abuse who was hospitalized at outside institution in [place] for pneumonia. Patient left AGAINST MEDICAL ADVICE and presented for her current hospitalization for hypoxia including difficulty with breathing. Diagnostic studies confirmed pneumonia. Patient required intubation and has since been intubated for almost one week. Patient is failure to wean. As result of prolonged ventilatory status, tracheostomy including gastrostomy tube placement is being requested. Patient remains on full ventilatory support. Afebrile. WBC 7.6 hemoglobin 7.8 Chest x-ray bilateral lung pneumothoraces. Right loculated pneumothorax stable. There is interval development of the moderate left pneumothorax PHYSICAL EXAM: VITAL SIGNS: Reviewed. GENERAL: Well-developed in no acute distress. HEENT: No sclera icterus. Extraocular movements grossly intact. Moist buccal mucosa. Head is atraumatic, normocephalic. ABDOMEN: Soft. Nondistended. Nontender. NEUROLOGIC: Depressed due to sedation ASSESSMENT: 1. Hypoxia with vent dependent respiratory status 2. Bilateral pneumothoraces 3. IV drug abuse methamphetamine abuse PLAN: -Patient is scheduled for tracheostomy and PEG tube placement tomorrow, 04/10/20, with Dr. Torres -Hold tube feedings after midnight Physician Braille Transcriber note has been reviewed by physician. Signing provider agrees with the documented findings, assessment, and plan of care. Objective - Vital Signs Vital signs: Vital Signs Temp 99.7 F H 04/09/20 04:30 Pulse 78 04/09/20 07:16 Resp 24 04/09/20 07:00 BP 99/54 04/09/20 07:00 Pulse Ox 97 04/09/20 07:00 Intake & Output 04/08/20 04/09/20 04/09/20 18:59 06:59 18:59 Intake Total 1280.445 5385.643 211.270 Output Total 1415 1285 125 Balance 124.281 -127.357 86.270 Weight 52 kg Intake: IV 376 276 23 Cefepime 2 gm In Sodium 100 Chloride 0.9% 100 ml @ 25 mls/hr IVPB Q12HR [facility] Rx #:[id number] Pressure bag 36 36 3 Sodium Chloride 0.9% 1, 240 240 20 000 ml @ 20 mls/hr IV . Q24H [facility] Rx#:[id number] Intake, IV Titration 377.281 395.643 155.270 Amount Norepinephrine 32 mg In 6.734 34.523 Sodium Chloride 0.9% 218 ml @ 0.05 MCG/KG/MIN 1.23 mls/hr IV .Q24H [facility] Rx#: [id number] fentaNYL (PF) 1,000 mcg 200 200 85.575 In Sodium Chloride 0.9% 80 ml @ Per Protocol IV . Q0M [facility] Rx#:[id number] propofoL 1,000 mg In 170.547 161.12 69.695 Empty Bag 1 bag @ Titrate IV .Q0M [facility] Rx#: [id number] Oral 240 Tube Feeding 396 396 33 Other 150 90 Output: Urine 1415 1285 125 Stool 0 Other: Voiding Method Indwelling Catheter Indwelling Catheter # Bowel Movements 0 ABP, PAP, CO, CI - Last Documented Arterial Blood Pressure 109/44 - Labs CBC & Chem 7: 04/09/20 05:00 04/09/20 05:00 Labs: Abnormal Lab Results - Last 24 Hours (Table) 04/08/20 04/08/20 04/08/20 Range/Units 11:25 18:06 18:48 RBC (3.80-5.40) m/uL Hgb (11.4-16.0) gm/dL Hct (34.0-46.0) % MCV (80.0-100.0) fL MCH (25.0-35.0) pg MCHC (31.0-37.0) g/dL RDW (11.5-15.5) % Lymphocytes # (1.0-4.8) k/uL ABG pH (7.35-7.45) ABG pCO2 (35-45) mmHg ABG pO2 (83-108) mmHg ABG HCO3 (21-25) mmol/L ABG Total CO2 (19-24) mmol/L ABG O2 Saturation (94-97) % Carbon Dioxide (22-30) mmol/L BUN (7-17) mg/dL Glucose (74-99) mg/dL POC Glucose (mg/dL) 208 H 165 H 154 H (75-99) mg/dL 04/08/20 04/09/20 04/09/20 Range/Units 23:42 04:46 05:00 RBC 3.59 L (3.80-5.40) m/uL Hgb 7.8 L (11.4-16.0) gm/dL Hct 27.5 L (34.0-46.0) % MCV 76.6 L (80.0-100.0) fL MCH 21.7 L (25.0-35.0) pg MCHC 28.4 L (31.0-37.0) g/dL RDW 15.7 H (11.5-15.5) % Lymphocytes # 0.8 L (1.0-4.8) k/uL ABG pH 7.34 L (7.35-7.45) ABG pCO2 74 H* (35-45) mmHg ABG pO2 148 H (83-108) mmHg ABG HCO3 40 H* (21-25) mmol/L ABG Total CO2 42 H (19-24) mmol/L ABG O2 Saturation 100.0 H (94-97) % Carbon Dioxide (22-30) mmol/L BUN (7-17) mg/dL Glucose (74-99) mg/dL POC Glucose (mg/dL) 161 H (75-99) mg/dL 04/09/20 04/09/20 Range/Units 05:00 05:54 RBC (3.80-5.40) m/uL Hgb (11.4-16.0) gm/dL Hct (34.0-46.0) % MCV (80.0-100.0) fL MCH (25.0-35.0) pg MCHC (31.0-37.0) g/dL RDW (11.5-15.5) % Lymphocytes # (1.0-4.8) k/uL ABG pH (7.35-7.45) ABG pCO2 (35-45) mmHg ABG pO2 (83-108) mmHg ABG HCO3 (21-25) mmol/L ABG Total CO2 (19-24) mmol/L ABG O2 Saturation (94-97) % Carbon Dioxide 39 H (22-30) mmol/L BUN 32 H (7-17) mg/dL Glucose 203 H (74-99) mg/dL POC Glucose (mg/dL) 158 H (75-99) mg/dL Microbiology - Last 24 Hours (Table) 04/02/20 14:55 Blood Culture - Final Blood No Growth after 144 hours
--- NOTE | 2020-04-09 10:37 | XR ---
EXAMINATION TYPE: XR chest 1V portable DATE OF EXAM: 04/09/2020 CLINICAL HISTORY: chest tube placement. TECHNIQUE: Portable supine radiograph of the chest COMPARISON: 04/09/2020 chest radiograph at 9:27 AM FINDINGS: Supine technique somewhat limits evaluation of pneumothorax. There is interval placement o f left-sided chest tube with distal tip over the left lung apex. Persistent [id number]-zudiaccg left pn eumothorax appears similar given differences in technique. Right sided chest tube and right pneumotho rax are similar. Endotracheal tube distal tip approximately 2.2 cm from the sandra. Enteric tube rede monstrated. Redemonstrated biapical pleural and bilateral hazy parenchymal opacities. IMPRESSION: 1. Placement of left-sided chest tube with distal tip over the lung apex. Wzceu-[id number]-enipkvgm left pneu mothorax appears similar to comparison at 9:27 AM given differences in technique. 2. Similar-appearing right-sided chest tube and right pneumothorax.
[2020-04-09 11:36] LABS: Glucose,Whole Blood 177 mg/dL (75-99)
[2020-04-09] MEDS: NOREPINEPHRINE 32 MG in SODIUM CHLORIDE 0.9% 218 ML IV SCH (11:43)
[2020-04-09] MEDS: fentaNYL (PF) 2,500 MCG in SODIUM CHLORIDE 0.9% 200 ML IV SCH (15:31)
--- NOTE | 2020-04-09 16:03 | P.PN ---
Subjective Progress Note Date: 04/09/20 Principal diagnosis: Acute hypoxic respiratory failure secondary to bilateral pneumonia and bilateral pneumothoraces. And Underlying severe COPD 04/04/2020 the patient is being seen for a follow-up. The patient is going to undergo bronchoscopy today. I was able to obtain records from the hospital as the [facility] and at that time the patient was hospitalized for rae ateral pneumonia. CAT scan of the chest findings were similar to the ones that he had he [place]. The patient underwent further investigation including alpha-1 antitrypsin level came back within normal, cystic fibrosis mutation screen that came back negative, HIV screen that came back negative, fungal screen including Histoplasma urine antigen, cryptococcal serum antigen and Aspergillus antibodies and all of these were negative. For now, the patient is scheduled to undergo bronchoscopy and bronchial lavage. Echocardiogram showed no evidence of any valvular disease or vegetations. She is still short of breath and she has increased dyspnea cough chest tightness and wheezing. No significant sputum production. On 04/05/2020, the patient is in intensive care unit. Mother the patient underwent a bronchoscopy and bronchial lavage yesterday and the procedure was essentially uncomplicated. Yesterday evening and manager discovery hours, the patient became progressively more short of breath, tachypnea, tachycardic and hypoxic. At that point, the emergency team was called and the patient was evaluated twice. During the second evaluation, chest x-ray was done and the patient was found to have diffuse but the pulmonary infiltrates in addition to hypoxic respiratory failure. The patient was started on a BiPAP at a pressure of 12/5 with an FiO2 of 60% and the patient got transferred to the ICU. She was also given a dose of Lasix. She started producing adequate amount of urine output. Nevertheless, she continued to have agonal breathing, low tidal volume and increased tachypnea with impending signs of respiratory failure even while being on a BiPAP. At that point, I made a decision to intubate the patient in intensive care unit. The patient was intubated by #8 orotracheal tube. She was placed on a mechanical ventilator. A triple lumen catheter was established. An outlying catheter was also established. The post intubation blood gas showed a pH of 7.25 with a pCO2 of 87 pO2 of 386 and this was done on assist control mode at the rate of 20 with tidal volume of 350 and FiO2 of 100% with a PEEP of 5. FiO2 is down to 50%. The patient at this point in time is sedated with propofol and the patient is calm and comfortable. Fentanyl was also added to improve for sedation while being a mechanical ventilator. Results of the bronchioloalveolar lavage is still negative. No microbial growth. The patient remains on a combination of IV cefepime and vancomycin. The post intubation chest x-ray showed bilateral pleural thickening and bilateral airspace disease seen although somewhat improved compared to the earlier chest x-rays. ET tube was around 1 cm above the sandra. Blood work from this morning showed a hemoglobin of 7.2. White cell count of 15.8. Aggressive the blood work essentially within normal limits. On 04/06/2020, the patient remains intubated on a mechanical. On today's evaluation the patient is on propofol running at 50 g per KG per minute. The patient is also on fentanyl drip at 3 g per KG per minute. IV fluids at KVO and the patient is on levo fed at 0.1 mg per KG per minute. The patient remains on mechanical ventilator on assist control mode at the rate of 24 with a tidal volume loss was 75 with an FiO2 of 50% and PEEP of 5. Peak airway pressure 37. Plateau airway pressure is 35. Patient is receiving tube feed with vital high protein at the rate of 10 mL an hour and the patient will be advanced to goal. The bronchioloalveolar lavage that was done earlier came back negative for any microbial growth. A chest x-ray from today shows some improvement and by the pulmonary infiltrate that was established on yesterday's chest x-ray. The patient remains on a combination of cefepime and vancomycin. Lasix will be restarted. No other significant events otherwise for now. She is requiring norepinephrine infusion for blood pressure control. Echocardiogram at shown a preserved LV function without any significant LV dysfunction. Triple lumen catheter has been established and have right femoral vein. She also has an arterial line catheter. I was concerned about elevated airway pressures in this patient. Unable to ventilate with a higher volumes as the patient's pressure will go significantly high. I switch this patient to a pressure control mode of ventilation. 04/07/2020, the patient is being seen for follow-up. The patient remains intubated on a mechanical ventilator. The patient is on assist control ventilation and on today's evaluation the patient is on a pressure control of 30 with a PEEP of 5 and FiO2 of 50% with a rate of 34. The blood gases from today showed a pH of 7.47 with a pCO2 of 69 a pO2 of 168 and a follow-up chest x-ray from today showed improvement in the bilateral pulmonary infiltrates. Nevertheless, there was a note of a right-sided pneumothorax. Based on this, a CAT scan of the chest was done to confirm the findings and the patient did have a right-sided pneumothorax there was moderate in size in addition to bilateral diffuse bilateral a disease and small bilateral pleural effusions. At that point, a 24-Australian chest tube was inserted in the right hemithorax and a follow- up chest x-ray is pending for now. The patient remains hemodynamically stable and there was no evidence of any tension due to this pneumothorax. I also did some ventilator changes. I dropped the pressure control down to 20 and dropped a respiratory rate down to 24 and drop the FiO2 down to 40%. A repeat blood gases was done and the repeat blood gases showed a pH of 7.37 with a pCO2 of 89 pO2 of 95. The patient's white cell count of 10.4 with hemoglobin of 7.2. The rest of the blood work and electrodes with a component of metabolic alkalosis with a serum bicarb of 50 and a sodium of 141. The patient remains on broad- spectrum antibiotics. Vancomycin was discontinued as the patient's bronchial alveolar lavage did not reveal any microbial growth and I'm going to keep this patient only on cefepime for now. The patient remains sedated with a combination of fentanyl erythematous events per KG per minute and for prophylaxis for microvascular KG per minute. The patient is also being diuresis with Lasix at a dose of 20 mg IV push every 12 hours. The patient is on vital high protein at the rate of 30 mL an hour. 04/08/2020, the patient remains intubated on a mechanical ventilator. Unfortunately, she continues to have a small right-sided pneumothorax despite a chest tube insertion. The air leak from the right-sided chest tube is minimal at this point in time and output is minimal. The patient is extremely debilitated. 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 She has advanced COPD with chronic lung disease. She is currently on a pressure control mode of ventilation with a pressure control of 20 with an FiO2 of 40% with a PEEP of 5 and the rate of 24. The blood gases showed a pH of 7.43 with a pCO2 of 84 and pO2 of 111. The peak airway pressure 33. The static airway pressure is 27. The patient remains sedated with propofol at the rate of 50 g per KG per minute and fentanyl is running at a rate of 3 g per KG per minute. Norepinephrine is running at 0.02 g per KG per minute. Cultures from the bronchioloalveolar lavage has been negative and the patient is still on cefepime as a broad-spectrum antibiotic coverage for now. She is being diuresed with IV Lasix at a dose of 20 mg IV push every 12 hours. The dose of Lasix will be tapered as the patient has been adequate fluid balance. The chest x-ray findings shows improvement and by the pulmonary infiltrates. There is however a stable loculated right-sided pneumothorax and the right-sided chest tube is in good location. ET tube is in good location. The patient was started on enteral feeding for nutritional support. I'm very much convinced that the patient would benefit from a PEG and trach as the patient has advanced lung disease and she is quite debilitated and malnourished at this young age. On a separate note, earlier this morning the patient went into a bout of an SVT with a heart rate of 160. The patient was given 2 doses o f IV Rocephin, 6 mg and 12 mg without success. Her heart rate gradually is improving at this point in time and over the next few hours, the patient's heart rate dropped down to 112 Reevaluated today on 04/16/20, patient remains intubated and mechanically ventilated. She is on pressure control mode of mechanical ventilation, pressure control is set at 24, inspiratory time is 0.65 seconds patient is on 40% FiO2 and PEEP of 5. She was intubated on 04/05/20, she is on propofol at 50 mcg/kg/m, fentanyl at 3 mcg/kg/h, she is also on norepinephrine at 0.01 mcg/kg/m. IV fluid is at 20 mL per hour. Patient has a right femoral triple- lumen catheter. Right radial arterial line. Right-sided chest tube with air leak noted. And today she ended up with a left-sided chest tube for left-sided pneumothorax which was noted on the chest x-ray earlier today. Patient is on tube feeding vital Hb 53 mL/h and this is the goal is also on cefepime empirically. ABG today showed a pO2 of 148 pCO2 of 74 pH of 7.34. WBC count is 7.6 hemoglobin is 7.8. Electrolytes and renal profile are normal. Bicarb is 39. This morning chest x-ray showed left-sided pneumothorax which is a new hence I went ahead and placed a left sided chest tube 28 [place] chest tube was placed since the patient is on mechanical ventilation. Not much changes noted in the pneumothorax after the chest tube placement Objective - Vital Signs Vital signs: Vital Signs Temp 98.4 F 04/09/20 12:00 Pulse 85 04/09/20 15:30 Resp 28 H 04/09/20 15:30 BP 99/54 04/09/20 07:00 Pulse Ox 98 04/09/20 15:30 Intake & Output 04/08/20 04/09/20 04/09/20 18:59 06:59 18:59 Intake Total 9081.912 6005.643 1046.079 Output Total 1415 1285 785 Balance 124.281 -127.357 261.079 Weight 52 kg 52 kg Intake: IV 376 276 340 Cefepime 2 gm In Sodium 100 150 Chloride 0.9% 100 ml @ 25 mls/hr IVPB Q12HR [facility] Rx #:[id number] Pressure bag 36 36 30 Sodium Chloride 0.9% 1, 240 240 160 000 ml @ 20 mls/hr IV . Q24H [facility] Rx#:[id number] Intake, IV Titration 377.281 395.643 250.079 Amount Norepinephrine 32 mg In 6.734 34.523 2.854 Sodium Chloride 0.9% 218 ml @ 0.05 MCG/KG/MIN 1.23 mls/hr IV .Q24H [facility] Rx#: [id number] fentaNYL (PF) 1,000 mcg 200 200 85.575 In Sodium Chloride 0.9% 80 ml @ Per Protocol IV . Q0M [facility] Rx#:[id number] propofoL 1,000 mg In 170.547 161.12 161.650 Empty Bag 1 bag @ Titrate IV .Q0M [facility] Rx#: [id number] Oral 240 Tube Feeding 396 396 396 Other 150 90 60 Output: Urine 1415 1285 785 Stool 0 Other: Voiding Method Indwelling Catheter Indwelling Catheter Indwelling Catheter # Bowel Movements 0 ABP, PAP, CO, CI - Last Documented Arterial Blood Pressure 117/61 - Exam atient thinking cachectic female patient, she looks quite emaciated. She has multiple tattoos. Intubated and mechanically ventilated. Head atraumatic, normocephalic. HEENT: PERRLA, EOMI, neck, no neck masses, no JVD, no stridor.. CHEST EXAMINATION: Trachea is central. Symmetrical expansion.bilateral diminished air entry and wheezing. Squeezing sounds noted bilaterally. CARDIAC: Normal S1, S2 with no gallops. No murmurs ABDOMEN: Soft. Bowel sounds normal. No organomegaly. No abdominal bruits. Extremities: reveal no edema. No clubbing or cyanosis Neurologically sedated, opens eyes to painful stimuli, could not be fully ass essed. Skin: No rash or skin lesions. Psychiatric: Could not assess. Patient is sedated Musculoskeletal: Significant muscle wasting noted bilaterally and the patient is extremely frail - Labs CBC & Chem 7: 04/09/20 05:00 04/09/20 05:00 Labs: Abnormal Lab Results - Last 24 Hours (Table) 04/08/20 04/08/20 04/08/20 Range/Units 18:06 18:48 23:42 RBC (3.80-5.40) m/uL Hgb (11.4-16.0) gm/dL Hct (34.0-46.0) % MCV (80.0-100.0) fL MCH (25.0-35.0) pg MCHC (31.0-37.0) g/dL RDW (11.5-15.5) % Lymphocytes # (1.0-4.8) k/uL ABG pH (7.35-7.45) ABG pCO2 (35-45) mmHg ABG pO2 (83-108) mmHg ABG HCO3 (21-25) mmol/L ABG Total CO2 (19-24) mmol/L ABG O2 Saturation (94-97) % Carbon Dioxide (22-30) mmol/L BUN (7-17) mg/dL Glucose (74-99) mg/dL POC Glucose (mg/dL) 165 H 154 H 161 H (75-99) mg/dL 04/09/20 04/09/20 04/09/20 Range/Units 04:46 05:00 05:00 RBC 3.59 L (3.80-5.40) m/uL Hgb 7.8 L (11.4-16.0) gm/dL Hct 27.5 L (34.0-46.0) % MCV 76.6 L (80.0-100.0) fL MCH 21.7 L (25.0-35.0) pg MCHC 28.4 L (31.0-37.0) g/dL RDW 15.7 H (11.5-15.5) % Lymphocytes # 0.8 L (1.0-4.8) k/uL ABG pH 7.34 L (7.35-7.45) ABG pCO2 74 H* (35-45) mmHg ABG pO2 148 H (83-108) mmHg ABG HCO3 40 H* (21-25) mmol/L ABG Total CO2 42 H (19-24) mmol/L ABG O2 Saturation 100.0 H (94-97) % Carbon Dioxide 39 H (22-30) mmol/L BUN 32 H (7-17) mg/dL Glucose 203 H (74-99) mg/dL POC Glucose (mg/dL) (75-99) mg/dL 04/09/20 04/09/20 Range/Units 05:54 11:35 RBC (3.80-5.40) m/uL Hgb (11.4-16.0) gm/dL Hct (34.0-46.0) % MCV (80.0-100.0) fL MCH (25.0-35.0) pg MCHC (31.0-37.0) g/dL RDW (11.5-15.5) % Lymphocytes # (1.0-4.8) k/uL ABG pH (7.35-7.45) ABG pCO2 (35-45) mmHg ABG pO2 (83-108) mmHg ABG HCO3 (21-25) mmol/L ABG Total CO2 (19-24) mmol/L ABG O2 Saturation (94-97) % Carbon Dioxide (22-30) mmol/L BUN (7-17) mg/dL Glucose (74-99) mg/dL POC Glucose (mg/dL) 158 H 177 H (75-99) mg/dL Microbiology - Last 24 Hours (Table) 11/16/20 14:55 Blood Culture - Final Blood No Growth after 144 hours Assessment and Plan Assessment: Impression: Acute hypoxic respiratory failure with bilateral infiltrates, likely ARDS. Acute exacerbation of COPD. Bilateral pneumothoraces most likely secondary to barotrauma. Status post placement of a left and right-sided chest tubes for bilateral pneumothoraces. History of IV drug abuse. History of seizure disorder. Generalized anxiety disorder. Remote history of acute lymphocytic leukemia, in remission. Severe malnutrition, BMI is 20.3, this is protein calorie malnutrition, severe in nature. Chronic hypercapnic respiratory failure with metabolic compensation. Recommendation: Continue present supportive care measures. Continue ventilatory support. Continue nutritional support. Continue antibiotics. Continue bronchodilators and IV Solu-Medrol. Patient is nowhere near weaning, I believe the patient will be better off sent for tracheostomy and PEG tube placement. Continue propofol and fentanyl. Continue GI and DVT prophylaxis. Patient is extremely ill, not ready for any weaning, hence surgery was consulted for PEG tube and tracheostomy. We'll continue to follow. Critical care time is 32 minutes not including the time spent on the chest tube placement. Time with Patient: Greater than 30
[2020-04-09 16:45] LABS: Glucose,Whole Blood 151 mg/dL (75-99)
--- NOTE | 2020-04-09 16:45 | OP ---
OPERATIVE REPORT OPERATIVE REPORT: Left-sided tube thoracostomy. PREOPERATIVE DIAGNOSIS: Left sided pneumothorax. POSTOPERATIVE DIAGNOSIS: Left sided pneumothorax. ANESTHESIA USED: 5 mL of 1% lidocaine. PROCEDURE DESCRIPTION: The patient was on mechanical ventilation already. She was given a dose of Nimbex 10 mg IV push prior to the procedure. Then the patient was placed in a supine position. The area at the level of the anterior axillary line at the sixth intercostal space was locally anesthetized with lidocaine. Then a 1.0 cm incision was made at the same site, and the subcutaneous tissue was dissected with a finger and with Denise forceps until the pleural space was entered. Then a 28 [place] tube was placed pointing apically and connected to Pleur-Evac. After the tube was inserted, the incision was closed with 0.0 Ethibond sutures. Procedure was well tolerated. No evidence of any immediate complications. Chest x-ray postoperatively showed adequate placement of the chest tube on the left side. MMODL / IJN: [id number] / [facility]#: [id number]
--- NOTE | 2020-04-09 20:10 | P.PN ---
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 Patient does have history of IV drug abuse and stopped using approximately 2 weeks ago. Patient was seen at outside hospital in [place] for difficulty in breathing. Patient left AGAINST MEDICAL ADVICE. Patient came to [place] to see her family and has been having worsening symptoms again with cough and dyspnea. Chest x-ray showed diffuse bilateral pleural parenchymal changes.Coronavirus PCR and influenza A and B negative.CT angiogram showed no evidence of pulmonary embolism. Patient is status post bronchoscopy with bronchial lavage on 04/04. Patient eventually need intubation and placed on mechanical ventilation for worsening respiratory failure. Her hospital course was complicated by right pneumothorax and chest tube was placed by surgery team. Today she developed left-sided pneumothorax with another chest tube was placed. Patient remains on broad-spectrum antibiotics with cefepime , she was on IV vancomycin which is a stopped now. Also she is on small doses of IV Lasix 20 mg daily and salmeterol 60 mg. Surgery team were consulted for PEG tube and tracheostomy placement Review of systems: N/a Active Medications Generic Name Dose Route Start Last Admin Trade Name Freq PRN Reason Stop Dose Admin Acetaminophen 650 mg 04/03/20 13:35 04/03/20 16:14 Acetaminophen Tab 325 Mg Tab PO 650 mg Q6HR PRN Administration Fever and/ or Pain Acetazolamide 500 mg 04/08/20 09:00 04/09/20 10:09 Acetazolamide 250 Mg Tab PO 04/12/20 09:01 500 mg DAILY CRISTHIAN Administration Albuterol/Ipratropium 3 ml 04/02/20 17:41 04/04/20 02:02 Ipratropium-Albuterol 3 Ml Neb INHALATION 3 ml RT-Q4H PRN Administration Shortness Of Breath Or Wheezing Albuterol/Ipratropium 3 ml 04/02/20 20:00 04/09/20 19:19 Ipratropium-Albuterol 3 Ml Neb INHALATION 3 ml RT-QID CRISTHAIN Administration Buspirone HCl 7.5 mg 04/04/20 21:00 04/09/20 10:08 Buspirone Hcl 5 Mg Tab PO 7.5 mg BID CRISTHIAN Administration Chlorhexidine Gluconate 15 ml 04/05/20 21:00 04/09/20 10:08 Chlorhexidine Gluconate 15 Ml Cup MUCOUS MEM 15 ml BID CRISTHIAN Administration Enoxaparin Sodium 40 mg 04/03/20 09:00 04/09/20 10:09 Enoxaparin 40 Mg/0.4 Ml Syringe SQ 40 mg DAILY CRISTHIAN Administration Ferrous Sulfate 325 mg 04/05/20 07:30 04/09/20 14:36 Ferrous Sulfate 325 Mg Tab PO Not Given BID-W/MEALS CRISTHIAN Furosemide 20 mg 04/08/20 08:30 04/09/20 10:09 Furosemide 10 Mg/Ml 2 Ml Vial IV 20 mg Q24HR CRISTHIAN Administration Guaifenesin/Codeine Phosphate 10 ml 04/03/20 15:09 04/04/20 01:57 Guaifenesin-Coden 100-10mg/5ml 10 Ml Cup PO 10 ml Q6H PRN Administration Cough Sodium Chloride 1,000 mls @ 20 mls/hr 04/02/20 15:30 04/09/20 16:39 Saline 0.9% IV Not Given .Q24H CRISTHIAN Cefepime HCl 2 gm/ Sodium 100 mls @ 25 mls/hr 04/03/20 10:30 04/09/20 10:08 Chloride IVPB 25 mls/hr Q12HR CRISTHIAN Administration Propofol 1,000 mg/ IV Solution 100 mls @ 0 mls/hr 04/05/20 10:45 04/09/20 14:35 IV 50 mcg/kg/min .Q0M CRISTHIAN 15.9 mls/hr Administration Protocol Titrate Norepinephrine Bitartrate 32 250 mls @ 1.23 mls/hr 04/05/20 11:15 04/09/20 11:45 mg/ Sodium Chloride IV 0 mcg/kg/min .Q24H CRISTHIAN 0 mls/hr Titration Protocol 0.05 MCG/KG/MIN Fentanyl Citrate 2,500 mcg/ 250 mls @ 0 mls/hr 04/09/20 15:00 04/09/20 15:31 Sodium Chloride IV 3 mcg/kg/hr .Q0M CRISTHIAN 15.6 mls/hr Administration Protocol Per Protocol Insulin Aspart 0 unit 04/05/20 18:00 04/09/20 16:50 Insulin Aspart (Novolog) 100 Unit/Ml Vial SQ 2 unit Q6H CRISTHIAN Administration Protocol Lorazepam 1 mg 04/05/20 06:21 04/08/20 08:51 Lorazepam 2 Mg/Ml Inj IV 1 mg Q4HR PRN Administration Anxiety Methylprednisolone Sodium Succinate 60 mg 04/02/20 18:30 04/09/20 17:12 Methylprednisolone Sod Succi 125 Mg/2 Ml Vial IV 60 mg Q6HR CRISTHIAN Administration Ondansetron HCl 4 mg 04/03/20 15:08 04/03/20 16:14 Ondansetron 4 Mg/2 Ml Vial IVP 4 mg Q6HR PRN Administration Nausea And Vomiting Objective - Vital Signs Vital signs: Vital Signs Temp 98.5 F 04/09/20 16:00 Pulse 95 04/09/20 17:30 Resp 28 H 04/09/20 17:30 BP 99/54 04/09/20 07:00 Pulse Ox 98 04/09/20 17:30 Intake & Output 04/08/20 04/09/20 04/09/20 18:59 06:59 18:59 Intake Total 6549.571 4798.643 1221.079 Output Total 1415 1285 1005 Balance 124.281 -127.357 216.079 Weight 52 kg 52 kg Intake: IV 376 276 386 Cefepime 2 gm In Sodium 100 150 Chloride 0.9% 100 ml @ 25 mls/hr IVPB Q12HR CRISTHIAN Rx #:[id number] Pressure bag 36 36 36 Sodium Chloride 0.9% 1, 240 240 200 000 ml @ 20 mls/hr IV . Q24H CRISTHIAN Rx#:[id number] Intake, IV Titration 377.281 395.643 250.079 Amount Norepinephrine 32 mg In 6.734 34.523 2.854 Sodium Chloride 0.9% 218 ml @ 0.05 MCG/KG/MIN 1.23 mls/hr IV .Q24H CRISTHIAN Rx#: [id number] fentaNYL (PF) 1,000 mcg 200 200 85.575 In Sodium Chloride 0.9% 80 ml @ Per Protocol IV . Q0M CRISTHIAN Rx#:[id number] propofoL 1,000 mg In 170.547 161.12 161.650 Empty Bag 1 bag @ Titrate IV .Q0M CRISTHIAN Rx#: [id number] Oral 240 Tube Feeding 396 396 495 Other 150 90 90 Output: Urine 1415 1285 1005 Stool 0 Other: Voiding Method Indwelling Catheter Indwelling Catheter Indwelling Catheter # Bowel Movements 0 ABP, PAP, CO, CI - Last Documented Arterial Blood Pressure 116/59 - Exam -GENERAL: The patient is intubated and sedated HEENT: Pupils are round and equally reacting to light. EOMI. No scleral icterus. No conjunctival pallor. Normocephalic, atraumatic. No pharyngeal erythema. No thyromegaly. CARDIOVASCULAR: S1 and S2 present. No murmurs, rubs, or gallops. -PULMONARY: Chest is clear to auscultation, no wheezing or crackles. Bilateral chest tube placement ABDOMEN: Soft, nontender, nondistended, normoactive bowel sounds. No palpable organomegaly. MUSCULOSKELETAL: No joint swelling or deformity. EXTREMITIES: No cyanosis, clubbing, or pedal edema. NEUROLOGICAL: Gross neurological examination did not reveal any focal deficits. SKIN: No rashes. no petechiae. - Labs CBC & Chem 7: 04/09/20 05:00 04/09/20 05:00 Labs: Abnormal Lab Results - Last 24 Hours (Table) 04/08/20 04/08/20 04/08/20 Range/Units 18:06 18:48 23:42 RBC (3.80-5.40) m/uL Hgb (11.4-16.0) gm/dL Hct (34.0-46.0) % MCV (80.0-100.0) fL MCH (25.0-35.0) pg MCHC (31.0-37.0) g/dL RDW (11.5-15.5) % Lymphocytes # (1.0-4.8) k/uL ABG pH (7.35-7.45) ABG pCO2 (35-45) mmHg ABG pO2 (83-108) mmHg ABG HCO3 (21-25) mmol/L ABG Total CO2 (19-24) mmol/L ABG O2 Saturation (94-97) % Carbon Dioxide (22-30) mmol/L BUN (7-17) mg/dL Glucose (74-99) mg/dL POC Glucose (mg/dL) 165 H 154 H 161 H (75-99) mg/dL 04/09/20 04/09/2004/09/20 Range/Units 04:46 05:00 05:00 RBC 3.59 L (3.80-5.40) m/uL Hgb 7.8 L (11.4-16.0) gm/dL Hct 27.5 L (34.0-46.0) % MCV 76.6 L (80.0-100.0) fL MCH 21.7 L (25.0-35.0) pg MCHC 28.4 L (31.0-37.0) g/dL RDW 15.7 H (11.5-15.5) % Lymphocytes # 0.8 L (1.0-4.8) k/uL ABG pH 7.34 L (7.35-7.45) ABG pCO2 74 H* (35-45) mmHg ABG pO2 148 H (83-108) mmHg ABG HCO3 40 H* (21-25) mmol/L ABG Total CO2 42 H (19-24) mmol/L ABG O2 Saturation 100.0 H (94-97) % Carbon Dioxide 39 H (22-30) mmol/L BUN 32 H (7-17) mg/dL Glucose 203 H (74-99) mg/dL POC Glucose (mg/dL) (75-99) mg/dL 04/09/20 04/09/20 04/09/20 Range/Units 05:54 11:35 16:44 RBC (3.80-5.40) m/uL Hgb (11.4-16.0) gm/dL Hct (34.0-46.0) % MCV (80.0-100.0) fL MCH (25.0-35.0) pg MCHC (31.0-37.0) g/dL RDW (11.5-15.5) % Lymphocytes # (1.0-4.8) k/uL ABG pH (7.35-7.45) ABG pCO2 (35-45) mmHg ABG pO2 (83-108) mmHg ABG HCO3 (21-25) mmol/L ABG Total CO2 (19-24) mmol/L ABG O2 Saturation (94-97) % Carbon Dioxide (22-30) mmol/L BUN (7-17) mg/dL Glucose (74-99) mg/dL POC Glucose (mg/dL) 158 H 177 H 151 H (75-99) mg/dL Microbiology - Last 24 Hours (Table) 04/02/20 14:55 Blood Culture - Final Blood No Growth after 144 hours Assessment and Plan Assessment: Bilateral patchy groundglass opacities Secondary to pneumonia. Patient possible ARDS Acute hypoxic respiratory failure secondary to pneumonia currently patient is on mechanical ventilator. Bilateral pneumothorax. Status post bilateral chest tube placement. Acute asthma exacerbation Recent history of IV drug abuse, about 2 weeks prior to admission non-Compliance to therapy. The patient left [facility] in [facility] History of ALL currently in remission. History of Anxiety Nicotine dependence, everyday smoker Plan: This is a 29 years old female who presents with bilateral pneumonia and possible ARDS and bilateral pneumothorax status post chest tube. Continue with antibiotic, continue with steroids and IV Lasix. The pain management. Follow- up recommendation by pulmonary/critical care team R following the case closely. Labs and medication were reviewed.. Continue same treatment. Continue with symptomatic treatment. Resume home medication. Monitor lytes and vitals. DVT and GI prophylaxis. Further recommendationsas per clinical course of the patien t DVT prophylaxis: Subcutaneous Lovenox GI Prophylaxis: Pepcid Prognosis is guarded
[2020-04-09] MEDS: FAMOTIDINE 20 MG/2 ML VIAL IV SCH (22:21)
--- NOTE | 2020-04-09 22:38 | PN ---
PROGRESS NOTE DATE OF SERVICE: 04/09/2020 REASON FOR FOLLOWUP: Pneumonia. INTERVAL HISTORY: The patient is currently afebrile. Did have a low-grade fever of 99.7 last night. The patient is hemodynamically stable, not requiring pressor support. FiO2 is currently stable at 50%. No significant purulent secretions through the ET or any diarrhea reported by the nursing staff. PHYSICAL EXAMINATION: Blood pressure 127/68 with a pulse of 90, temperature of 98. She is 99% on 50% FiO2. General description is a middle-aged female intubated on the vent. RESPIRATORY SYSTEM: Unlabored breathing with decreased breath sounds at the base. No wheeze. HEART: S1, S2. Regular rate and rhythm. ABDOMEN: Soft. No tenderness. LABS: Hemoglobin is 7.3, white count 7.6, BUN of 32, creatinine 0.6. has been normal. Liver enzymes are normal. Sputum so far negative. Bronchial washings and culture negative. DIAGNOSTIC IMPRESSION AND PLAN: Patient with acute respiratory failure which is multifactorial in this patient with a possible component of pneumonia. Bronch washings did show which is more likely oral . The patient is covered with cefepime; to continue and monitor course closely. MMODL / IJN: [id number] /
[2020-04-10 00:20] LABS: Glucose,Whole Blood 137 mg/dL (75-99)
[2020-04-10] MEDS: methylPREDNISolone SOD SUCCI 125 MG/2 ML VIAL IV SCH ×4 (00:36→17:38)
[2020-04-10] MEDS: SODIUM CHLORIDE 0.9% 1,000 ML IV SCH ×4 (00:37→23:56)
[2020-04-10] MEDS: INSULIN ASPART (NovoLOG) 100 UNIT/ML VIAL SQ SCH ×4 (00:37→19:15)
[2020-04-10 04:24] LABS: Anisocytosis Slight; Basophils % (A) 0 %; Eosinophils % (A) 0 %; HCT 27.9 % (34.0-46.0); HGB 8.1 gm/dL (11.4-16.0); Hypochromasia Marked; Lymphocytes # (A) 0.8 k/uL (1.0-4.8); Lymphocytes % (A) 9 %; MCH 21.8 pg (25.0-35.0); MCHC 28.9 g/dL (31.0-37.0); MCV 75.6 fL (80.0-100.0); Mean Platelet Volume 7.2; Microcytosis Slight; Monocytes # (A) 0.3 k/uL (0-1.0); Monocytes % (A) 3 %; Neutrophils # (A) 8.5 k/uL (1.3-7.7); Neutrophils % (A) 87 %; Platelet Count 258 k/uL (150-450); RBC 3.69 m/uL (3.80-5.40); RDW 16.2 % (11.5-15.5); WBC 9.7 k/uL (3.8-10.6)
[2020-04-10 04:38] LABS: ALT 22 U/L (4-34); AST 29 U/L (14-36); African American GFR (CKD) >90 (>60 ml/min/1.73 sqM); Albumin 3.6 g/dL (3.5-5.0); Alkaline Phosphatase 55 U/L (38-126); Anion Gap 1 mmol/L; Blood Urea Nitrogen 42 mg/dL (7-17); Calcium 8.9 mg/dL (8.4-10.2); Carbon Dioxide 38 mmol/L (22-30); Chloride 108 mmol/L (98-107); Glucose 138 mg/dL (74-99); Non-African American GFR(CKD) >90 (>60 ml/min/1.73 sqM); Potassium 4.4 mmol/L (3.5-5.1); Sodium 147 mmol/L (137-145); Total Bilirubin 0.4 mg/dL (0.2-1.3); Total Protein 6.8 g/dL (6.3-8.2)
[2020-04-10 05:45] LABS: ABG Base Excess 10.7 mmol/L; ABG HCO3 36 mmol/L (21-25); ABG PCO2 57 mmHg (35-45); ABG PO2 211 mmHg (83-108); ABG TCO2 37 mmol/L (19-24)
[2020-04-10 06:02] LABS: Glucose,Whole Blood 136 mg/dL (75-99)
[2020-04-10] MEDS: FERROUS SULFATE 325 MG TAB PO SCH ×2 (06:33→17:38)
[2020-04-10] MEDS: fentaNYL (PF) 2,500 MCG in SODIUM CHLORIDE 0.9% 200 ML IV SCH (07:39)
[2020-04-10] MEDS: CHLORHEXIDINE GLUCONATE 15 ML CUP MUCOUS MEM SCH ×2 (08:31→21:07)
[2020-04-10] MEDS: FAMOTIDINE 20 MG/2 ML VIAL IV SCH ×2 (08:31→21:07)
[2020-04-10] MEDS: FUROSEMIDE 10 MG/ML 2 ML VIAL IV SCH (08:31)
[2020-04-10] MEDS: ENOXAPARIN 40 MG/0.4 ML SYRINGE SQ SCH (08:31)
[2020-04-10] MEDS: CEFEPIME 2 GM in SODIUM CHLORIDE 0.9% 100 ML IVPB SCH ×2 (08:31→21:07)
[2020-04-10] MEDS: busPIRone HCl 5 MG TAB PO SCH ×2 (08:33→21:08)
[2020-04-10] MEDS: acetaZOLAMIDE 250 MG TAB PO SCH (08:33)
[2020-04-10] MEDS: IPRATROPIUM-ALBUTEROL 3 ML NEB INHALATION SCH ×4 (09:13→19:57)
--- NOTE | 2020-04-10 09:15 | XR ---
EXAMINATION TYPE: XR chest 1V portable DATE OF EXAM: 04/10/2020 Comparison: 04/09/2020 Clinical History: 29-year-old female Tube placement Findings: ET tube is satisfactory. NG tube courses below the diaphragm. Heart upper limits of normal in size. B ilateral chest tubes are present. Bilateral pneumothoraces are redemonstrated probably estimated at 2 0% on either side. On the right, this appears to have enlarged slightly measuring 1.1 cm from the lat eral margin versus 9 mm, previously. The basilar component is now also better seen on both sides. Foc al opacity at the left apex is unchanged. Impression: 1. Bilateral pneumothoraces are demonstrated, estimated at 20% each. The right-sided pneumothorax is slightly larger and the basilar component on the left is also slightly better seen. 2. Continued focal airspace disease at the left apex.
[2020-04-10 11:58] LABS: Glucose,Whole Blood 141 mg/dL (75-99)
[2020-04-10] MEDS: NOREPINEPHRINE 32 MG in SODIUM CHLORIDE 0.9% 218 ML IV SCH (12:31)
--- NOTE | 2020-04-10 13:15 | P.PN ---
Subjective Progress Note Date: 04/10/20 Principal diagnosis: Acute hypoxic respiratory failure secondary to bilateral pneumonia and bilateral pneumothoraces. And Underlying severe COPD 04/04/2020 the patient is being seen for a follow-up. The patient is going to undergo bronchoscopy today. I was able to obtain records from the hospital as the [facility] and at that time the patient was hospitalized for rae ateral pneumonia. CAT scan of the chest findings were similar to the ones that he had he [place]. The patient underwent further investigation including alpha-1 antitrypsin level came back within normal, cystic fibrosis mutation screen that came back negative, HIV screen that came back negative, fungal screen including Histoplasma urine antigen, cryptococcal serum antigen and Aspergillus antibodies and all of these were negative. For now, the patient is scheduled to undergo bronchoscopy and bronchial lavage. Echocardiogram showed no evidence of any valvular disease or vegetations. She is still short of breath and she has increased dyspnea cough chest tightness and wheezing. No significant sputum production. On 04/05/2020, the patient is in intensive care unit. Mother the patient underwent a bronchoscopy and bronchial lavage yesterday and the procedure was essentially uncomplicated. Yesterday evening and proposal specialist hours, the patient became progressively more short of breath, tachypnea, tachycardic and hypoxic. At that point, the emergency team was called and the patient was evaluated twice. During the second evaluation, chest x-ray was done and the patient was found to have diffuse but the pulmonary infiltrates in addition to hypoxic respiratory failure. The patient was started on a BiPAP at a pressure of 12/5 with an FiO2 of 60% and the patient got transferred to the ICU. She was also given a dose of Lasix. She started producing adequate amount of urine output. Nevertheless, she continued to have agonal breathing, low tidal volume and increased tachypnea with impending signs of respiratory failure even while being on a BiPAP. At that point, I made a decision to intubate the patient in intensive care unit. The patient was intubated by #8 orotracheal tube. She was placed on a mechanical ventilator. A triple lumen catheter was established. An outlying catheter was also established. The post intubation blood gas showed a pH of 7.25 with a pCO2 of 87 pO2 of 386 and this was done on assist control mode at the rate of 20 with tidal volume of 350 and FiO2 of 100% with a PEEP of 5. FiO2 is down to 50%. The patient at this point in time is sedated with propofol and the patient is calm and comfortable. Fentanyl was also added to improve for sedation while being a mechanical ventilator. Results of the bronchioloalveolar lavage is still negative. No microbial growth. The patient remains on a combination of IV cefepime and vancomycin. The post intubation chest x-ray showed bilateral pleural thickening and bilateral airspace disease seen although somewhat improved compared to the earlier chest x-rays. ET tube was around 1 cm above the sandra. Blood work from this morning showed a hemoglobin of 7.2. White cell count of 15.8. Aggressive the blood work essentially within normal limits. On 04/06/2020, the patient remains intubated on a mechanical. On today's evaluation the patient is on propofol running at 50 g per KG per minute. The patient is also on fentanyl drip at 3 g per KG per minute. IV fluids at KVO and the patient is on levo fed at 0.1 mg per KG per minute. The patient remains on mechanical ventilator on assist control mode at the rate of 24 with a tidal volume loss was 75 with an FiO2 of 50% and PEEP of 5. Peak airway pressure 37. Plateau airway pressure is 35. Patient is receiving tube feed with vital high protein at the rate of 10 mL an hour and the patient will be advanced to goal. The bronchioloalveolar lavage that was done earlier came back negative for any microbial growth. A chest x-ray from today shows some improvement and by the pulmonary infiltrate that was established on yesterday's chest x-ray. The patient remains on a combination of cefepime and vancomycin. Lasix will be restarted. No other significant events otherwise for now. She is requiring norepinephrine infusion for blood pressure control. Echocardiogram at shown a preserved LV function without any significant LV dysfunction. Triple lumen catheter has been established and have right femoral vein. She also has an arterial line catheter. I was concerned about elevated airway pressures in this patient. Unable to ventilate with a higher volumes as the patient's pressure will go significantly high. I switch this patient to a pressure control mode of ventilation. 04/07/2020, the patient is being seen for follow-up. The patient remains intubated on a mechanical ventilator. The patient is on assist control ventilation and on today's evaluation the patient is on a pressure control of 30 with a PEEP of 5 and FiO2 of 50% with a rate of 34. The blood gases from today showed a pH of 7.47 with a pCO2 of 69 a pO2 of 168 and a follow-up chest x-ray from today showed improvement in the bilateral pulmonary infiltrates. Nevertheless, there was a note of a right-sided pneumothorax. Based on this, a CAT scan of the chest was done to confirm the findings and the patient did have a right-sided pneumothorax there was moderate in size in addition to bilateral diffuse bilateral a disease and small bilateral pleural effusions. At that point, a 24-[place] chest tube was inserted in the right hemithorax and a follow- up chest x-ray is pending for now. The patient remains hemodynamically stable and there was no evidence of any tension due to this pneumothorax. I also did some ventilator changes. I dropped the pressure control down to 20 and dropped a respiratory rate down to 24 and drop the FiO2 down to 40%. A repeat blood gases was done and the repeat blood gases showed a pH of 7.37 with a pCO2 of 89 pO2 of 95. The patient's white cell count of 10.4 with hemoglobin of 7.2. The rest of the blood work and electrodes with a component of metabolic alkalosis with a serum bicarb of 50 and a sodium of 141. The patient remains on broad- spectrum antibiotics. Vancomycin was discontinued as the patient's bronchial alveolar lavage did not reveal any microbial growth and I'm going to keep this patient only on cefepime for now. The patient remains sedated with a combination of fentanyl erythematous events per KG per minute and for prophylaxis for microvascular KG per minute. The patient is also being diuresis with Lasix at a dose of 20 mg IV push every 12 hours. The patient is on vital high protein at the rate of 30 mL an hour. 04/08/2020, the patient remains intubated on a mechanical ventilator. Unfortunately, she continues to have a small right-sided pneumothorax despite a chest tube insertion. The air leak from the right-sided chest tube is minimal at this point in time and output is minimal. The patient is extremely debilitated. 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 She has advanced COPD with chronic lung disease. She is currently on a pressure control mode of ventilation with a pressure control of 20 with an FiO2 of 40% with a PEEP of 5 and the rate of 24. The blood gases showed a pH of 7.43 with a pCO2 of 84 and pO2 of 111. The peak airway pressure 33. The static airway pressure is 27. The patient remains sedated with propofol at the rate of 50 g per KG per minute and fentanyl is running at a rate of 3 g per KG per minute. Norepinephrine is running at 0.02 g per KG per minute. Cultures from the bronchioloalveolar lavage has been negative and the patient is still on cefepime as a broad-spectrum antibiotic coverage for now. She is being diuresed with IV Lasix at a dose of 20 mg IV push every 12 hours. The dose of Lasix will be tapered as the patient has been adequate fluid balance. The chest x-ray findings shows improvement and by the pulmonary infiltrates. There is however a stable loculated right-sided pneumothorax and the right-sided chest tube is in good location. ET tube is in good location. The patient was started on enteral feeding for nutritional support. I'm very much convinced that the patient would benefit from a PEG and trach as the patient has advanced lung disease and she is quite debilitated and malnourished at this young age. On a separate note, earlier this morning the patient went into a bout of an SVT with a heart rate of 160. The patient was given 2 doses o f IV Rocephin, 6 mg and 12 mg without success. Her heart rate gradually is improving at this point in time and over the next few hours, the patient's heart rate dropped down to 112 Reevaluated today on 04/09/20, patient remains intubated and mechanically ventilated. She is on pressure control mode of mechanical ventilation, pressure control is set at 24, inspiratory time is 0.65 seconds patient is on 40% FiO2 and PEEP of 5. She was intubated on 04/05/20, she is on propofol at 50 mcg/kg/m, fentanyl at 3 mcg/kg/h, she is also on norepinephrine at 0.01 mcg/kg/m. IV fluid is at 20 mL per hour. Patient has a right femoral triple- lumen catheter. Right radial arterial line. Right-sided chest tube with air leak noted. And today she ended up with a left-sided chest tube for left-sided pneumothorax which was noted on the chest x-ray earlier today. Patient is on tube feeding vital Hb 53 mL/h and this is the goal is also on cefepime empirically. ABG today showed a pO2 of 148 pCO2 of 74 pH of 7.34. WBC count is 7.6 hemoglobin is 7.8. Electrolytes and renal profile are normal. Bicarb is 39. This morning chest x-ray showed left-sided pneumothorax which is a new hence I went ahead and placed a left sided chest tube 28 [place] chest tube was placed since the patient is on mechanical ventilation. Not much changes noted in the pneumothorax after the chest tube placement Reevaluated today on 04/10/20, patient remains intubated and mechanically ventilated ventilator settings are pressure control set at 26, FiO2 is 35%, PEEP is at 5, inspiratory time is 0.70 and the rate is 24. Patient seems to be doing better today, better and adequate tidal volumes noted, just over 300 mL tidal volumes. Chest x-ray continues to show bilateral pneumothoraces secondary to barotrauma. Chest tubes are both in place. ABG today showed a pO2 of 211 pCO2 of 57 pH of 7.40, hence I cut down the FiO2 to 35%. Both tubes continued to have intermittent leaks. Patient is on fentanyl which I cut down to 1 mcg/kg/h and she is on propofol at 50. IV fluids at KVO, patient is do not feeding at present mostly because she is scheduled to undergo a PEG tube placement and tracheostomy today. CBC is relatively normal except for hemoglobin of 8.1. Electrolytes showed a sodium of 147 bicarb history renal profile is normal Objective - Vital Signs Vital signs: Vital Signs Temp 97.8 F 04/10/20 08:00 Pulse 98 04/10/20 11:00 Resp 26 H 04/10/20 11:00 BP 103/74 04/10/20 11:00 Pulse Ox 99 04/10/20 11:00 Intake & Output 04/09/20 04/10/20 04/10/20 18:59 06:59 18:59 Intake Total 1244.095 788 562.16 Output Total 1105 2075 540 Balance 139.095 -1287 22.16 Weight 52 kg 52 kg Intake: IV 409 353 115 Cefepime 2 gm In Sodium 150 100 Chloride 0.9% 100 ml @ 25 mls/hr IVPB Q12HR [facility] Rx #:[id number] Pressure bag 39 33 15 Sodium Chloride 0.9% 1, 220 220 100 000 ml @ 20 mls/hr IV . Q24H [facility] Rx#:[id number] Intake, IV Titration 250.095 200 417.16 Amount Cefepime 2 gm In Sodium 50 Chloride 0.9% 100 ml @ 25 mls/hr IVPB Q12HR [facility] Rx #:[id number] Norepinephrine 32 mg In 2.870 Sodium Chloride 0.9% 218 ml @ 0.05 MCG/KG/MIN 1.23 mls/hr IV .Q24H [facility] Rx#: [id number] fentaNYL (PF) 1,000 mcg 85.575 In Sodium Chloride 0.9% 80 ml @ Per Protocol IV . Q0M [facility] Rx#:[id number] fentaNYL (PF) 2,500 mcg 267.16 In Sodium Chloride 0.9% 200 ml @ Per Protocol IV .Q0M [facility] Rx#:[id number] propofoL 1,000 mg In 161.650 200 100 Empty Bag 1 bag @ Titrate IV .Q0M [facility] Rx#: [id number] Tube Feeding 495 205 0 Other 90 30 30 Output: Urine 1105 2075 540 Other: Voiding Method Indwelling Catheter Indwelling Catheter Indwelling Catheter ABP, PAP, CO, CI - Last Documented Arterial Blood Pressure 93/78 - Exam atient thinking cachectic female patient, she looks quite emaciated. She has multiple tattoos. Intubated and mechanically ventilated. Head atraumatic, normocephalic. HEENT: PERRLA, EOMI, neck, no neck masses, no JVD, no stridor.. CHEST EXAMINATION: Trachea is central. Symmetrical expansion.bilateral diminished air entry and wheezing. Squeezing sounds noted bilaterally. CARDIAC: Normal S1, S2 with no gallops. No murmurs ABDOMEN: Soft. Bowel sounds normal. No organomegaly. No abdominal bruits. Extremities: reveal no edema. No clubbing or cyanosis Neurologically sedated, opens eyes to painful stimuli, could not be fully assessed. Skin: No rash or skin lesions. Psychiatric: Could not assess. Patient is sedated Musculoskeletal: Significant muscle wasting noted bilaterally and the patient is extremely frail - Labs CBC & Chem 7: 04/10/20 04:00 04/10/20 04:00 Labs: Abnormal Lab Results - Last 24 Hours (Table) 04/09/20 04/10/20 04/10/20 Range/Units 16:44 00:18 04:00 RBC 3.69 L (3.80-5.40) m/uL Hgb 8.1 L (11.4-16.0) gm/dL Hct 27.9 L (34.0-46.0) % MCV 75.6 L (80.0-100.0) fL MCH 21.8 L (25.0-35.0) pg MCHC 28.9 L (31.0-37.0) g/dL RDW 16.2 H (11.5-15.5) % Neutrophils # 8.5 H (1.3-7.7) k/uL Lymphocytes # 0.8 L (1.0-4.8) k/uL ABG pCO2 (35-45) mmHg ABG pO2 (83-108) mmHg ABG HCO3 (21-25) mmol/L ABG Total CO2 (19-24) mmol/L ABG O2 Saturation (94-97) % Sodium (137-145) mmol/L Chloride (98-107) mmol/L Carbon Dioxide (22-30) mmol/L BUN (7-17) mg/dL Glucose (74-99) mg/dL POC Glucose (mg/dL) 151 H 137 H (75-99) mg/dL 04/10/20 04/10/20 04/10/20 Range/Units 04:00 05:33 06:01 RBC (3.80-5.40) m/uL Hgb (11.4-16.0) gm/dL Hct (34.0-46.0) % MCV (80.0-100.0) fL MCH (25.0-35.0) pg MCHC (31.0-37.0) g/dL RDW (11.5-15.5) % Neutrophils # (1.3-7.7) k/uL Lymphocytes # (1.0-4.8) k/uL ABG pCO2 57 H (35-45) mmHg ABG pO2 211 H (83-108) mmHg ABG HCO3 36 H (21-25) mmol/L ABG Total CO2 37 H (19-24) mmol/L ABG O2 Saturation 100.0 H (94-97) % Sodium 147 H (137-145) mmol/L Chloride 108 H (98-107) mmol/L Carbon Dioxide 38 H (22-30) mmol/L BUN 42 H (7-17) mg/dL Glucose 138 H (74-99) mg/dL POC Glucose (mg/dL) 136 H (75-99) mg/dL 04/10/20 Range/Units 11:57 RBC (3.80-5.40) m/uL Hgb (11.4-16.0) gm/dL Hct (34.0-46.0) % MCV (80.0-100.0) fL MCH (25.0-35.0) pg MCHC (31.0-37.0) g/dL RDW (11.5-15.5) % Neutrophils # (1.3-7.7) k/uL Lymphocytes # (1.0-4.8) k/uL ABG pCO2 (35-45) mmHg ABG pO2 (83-108) mmHg ABG HCO3 (21-25) mmol/L ABG Total CO2 (19-24) mmol/L ABG O2 Saturation (94-97) % Sodium (137-145) mmol/L Chloride (98-107) mmol/L Carbon Dioxide (22-30) mmol/L BUN (7-17) mg/dL Glucose (74-99) mg/dL POC Glucose (mg/dL) 141 H (75-99) mg/dL Assessment and Plan Assessment: Impression: Acute hypoxic respiratory failure with bilateral infiltrates, consistent with ARDS. Acute exacerbation of COPD. Bilateral pneumothoraces most likely secondary to barotrauma. Status post placement of a left and right-sided chest tubes for bilateral pneumothoraces. History of IV drug abuse. History of seizure disorder. Generalized anxiety disorder. Remote history of acute lymphocytic leukemia, in remission. Severe malnutrition, BMI is 20.3, this is protein calorie malnutrition, severe in nature. Chronic hypercapnic respiratory failure with metabolic compensation. Recommendation: Continue present supportive care measures. Continue ventilatory support. Continue nutritional support. Continue antibiotics. Continue bronchodilators and IV Solu-Medrol. Patient is nowhere near weaning, I Scheduled to undergo PEG tube placement and tracheostomy today. Continue propofol and fentanyl. However fentanyl will be cut down to 1 mcg/kg/h. Continue GI and DVT prophylaxis. Remains critically ill, We'll continue to follow. Critical care time is 34 minutes Time with Patient: Greater than 30
[2020-04-10] MEDS ORDERED: HYDROmorphone 0.5 MG/0.5 ML SYRINGE IVP PRN (17:26)
[2020-04-10] MEDS ORDERED: LACTATED RINGERS 1,000 ML IV SCH (17:30)
[2020-04-10 17:53] LABS: Glucose,Whole Blood 182 mg/dL (75-99)
[2020-04-10] MEDS ORDERED: CISATRACURIUM 2 MG/ML 5 ML VIAL IV ONE (21:09)
[2020-04-10 21:40] LABS: ABG PO2 >400 mmHg (83-108); Allen Test Performed? Yes
--- NOTE | 2020-04-10 21:40 | P.PN ---
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 Patient does have history of IV drug abuse and stopped using approximately 2 weeks ago. Patient was seen at outside hospital in [place] for difficulty in breathing. Patient left AGAINST MEDICAL ADVICE. Patient came to [place] to see her family and has been having worsening symptoms again with cough and dyspnea. Chest x-ray showed diffuse bilateral pleural parenchymal changes.Coronavirus PCR and influenza A and B negative.CT angiogram showed no evidence of pulmonary embolism. Patient is status post bronchoscopy with bronchial lavage on 04/04. Patient eventually need intubation and placed on mechanical ventilation for worsening respiratory failure. Her hospital course was complicated by right pneumothorax and chest tube was placed by surgery team. Today she developed left-sided pneumothorax with another chest tube was placed. Patient remains on broad-spectrum antibiotics with cefepime , she was on IV vancomycin which is a stopped now. Also she is on small doses of IV Lasix 20 mg daily and salmeterol 60 mg. Surgery team were consulted for PEG tube and tracheostomy placement 04/10/2020 Patient remains in the ICU for COPD and pneumonia, his currently on cefepime and IV Solu-Medrol. He is intubated on mechanical ventilation was managed closely by pulmonary/critical care team. As per the pulmonary team patient is doing better today. His hospital course is complicated by bilateral pneumothoraces status post bilateral chest tube. Also patient is undergoing PEG tube and tracheostomy placement Also patient is still tachycardic and tachypneic. Also patient is on Lasix 20 mg twice daily, was once daily yesterday Review of systems: N/a Active Medications Generic Name Dose Route Start Last Admin Trade Name Freq PRN Reason Stop Dose Admin Acetaminophen 650 mg 04/03/20 13:35 04/03/20 16:14 Acetaminophen Tab 325 Mg Tab PO 650 mg Q6HR PRN Administration Fever and/ or Pain Acetazolamide 500 mg 04/08/20 09:00 04/10/20 08:33 Acetazolamide 250 Mg Tab PO 04/12/20 09:01 500 mg DAILY CRISTHIAN Administration Albuterol/Ipratropium 3 ml 04/02/20 17:41 04/04/20 02:02 Ipratropium-Albuterol 3 Ml Neb INHALATION 3 ml RT-Q4H PRN Administration Shortness Of Breath Or Wheezing Albuterol/Ipratropium 3 ml 04/02/20 20:00 04/10/20 19:57 Ipratropium-Albuterol 3 Ml Neb INHALATION 3 ml RT-QID CRISTHIAN Administration Buspirone HCl 7.5 mg 04/04/20 21:00 04/10/20 21:08 Buspirone Hcl 5 Mg Tab PO 7.5 mg BID CRISTHIAN Administration Chlorhexidine Gluconate 15 ml 04/05/20 21:00 04/10/20 21:07 Chlorhexidine Gluconate 15 Ml Cup MUCOUS MEM 15 ml BID CRISTHIAN Administration Enoxaparin Sodium 40 mg 04/03/20 09:00 04/10/20 08:31 Enoxaparin 40 Mg/0.4 Ml Syringe SQ 40 mg DAILY CRISTHIAN Administration Famotidine 20 mg 04/09/20 21:00 04/10/20 21:07 Famotidine 20 Mg/2 Ml Vial IV 20 mg Q12HR CRISTHIAN Administration Ferrous Sulfate 325 mg 04/05/20 07:30 04/10/20 17:38 Ferrous Sulfate 325 Mg Tab PO 325 mg BID-W/MEALS CRISTHIAN Administration Furosemide 20 mg 04/08/20 08:30 04/10/20 08:31 Furosemide 10 Mg/Ml 2 Ml Vial IV 20 mg Q24HR CRISTHIAN Administration Guaifenesin/Codeine Phosphate 10 ml 04/03/20 15:09 04/04/20 01:57 Guaifenesin-Coden 100-10mg/5ml 10 Ml Cup PO 10 ml Q6H PRN Administration Cough Hydromorphone HCl 0.5 mg 04/10/20 17:26 Hydromorphone 0.5 Mg/0.5 Ml Syringe IVP 04/11/20 17:26 Q5M PRN Pain Control Sodium Chloride 1,000 mls @ 20 mls/hr 04/02/20 15:30 04/10/20 16:12 Saline 0.9% IV Not Given .Q24H CRISTHIAN Cefepime HCl 2 gm/ Sodium 100 mls @ 25 mls/hr 04/03/20 10:30 04/10/20 21:07 Chloride IVPB 25 mls/hr Q12HR CRISTHIAN Administration Propofol 1,000 mg/ IV Solution 100 mls @ 0 mls/hr 04/05/20 10:45 04/10/20 17:39 IV 50 mcg/kg/min .Q0M CRISTHIAN 15.9 mls/hr Administration Protocol Titrate Norepinephrine Bitartrate 32 250 mls @ 1.23 mls/hr 04/05/20 11:15 04/10/20 12:31 mg/ Sodium Chloride IV Not Given .Q24H CRISTHIAN Protocol 0.05 MCG/KG/MIN Fentanyl Citrate 2,500 mcg/ 250 mls @ 0 mls/hr 04/09/20 15:00 04/10/20 20:49 Sodium Chloride IV 2 mcg/kg/hr .Q0M CRISTHIAN 10.4 mls/hr Titration Protocol Per Protocol Lactated Ringer's 1,000 mls @ 20 mls/hr 04/10/20 17:30 04/10/20 17:41 Lactated Ringers IV 20 mls/hr .Q24H CRISTHIAN Administration Insulin Aspart 0 unit 04/05/20 18:00 04/10/20 19:15 Insulin Aspart (Novolog) 100 Unit/Ml Vial SQ 4 unit Q6H CRISTHIAN Administration Protocol Lorazepam 1 mg 04/05/20 06:21 04/08/20 08:51 Lorazepam 2 Mg/Ml Inj IV 1 mg Q4HR PRN Administration Anxiety Methylprednisolone Sodium Succinate 60 mg 04/02/20 18:30 04/10/20 17:38 Methylprednisolone Sod Succi 125 Mg/2 Ml Vial IV 60 mg Q6HR CRISTHIAN Administration Ondansetron HCl 4 mg 04/03/20 15:08 04/03/20 16:14 Ondansetron 4 Mg/2 Ml Vial IVP 4 mg Q6HR PRN Administration Nausea And Vomiting Objective - Vital Signs Vital signs: Vital Signs Temp 98.2 F 04/10/20 16:00 Pulse 104 H 04/10/20 16:00 Resp 27 H 04/10/20 16:00 BP 110/89 04/10/20 16:00 Pulse Ox 98 04/10/20 16:00 Intake & Output 04/09/20 04/10/20 04/10/20 18:59 06:59 18:59 Intake Total 1244.095 788 830.16 Output Total 1105 2075 1560 Balance 139.095 -1287 -729.84 Weight 52 kg 52 kg Intake: IV 409 353 230 Cefepime 2 gm In Sodium 150 100 Chloride 0.9% 100 ml @ 25 mls/hr IVPB Q12HR CRISTHIAN Rx #:[id number] Pressure bag 39 33 30 Sodium Chloride 0.9% 1, 220 220 200 000 ml @ 20 mls/hr IV . Q24H CRISTHIAN Rx#:[id number] Intake, IV Titration 250.095 200 417.16 Amount Cefepime 2 gm In Sodium 50 Chloride 0.9% 100 ml @ 25 mls/hr IVPB Q12HR CRISTHIAN Rx #:[id number] Norepinephrine 32 mg In 2.870 Sodium Chloride 0.9% 218 ml @ 0.05 MCG/KG/MIN 1.23 mls/hr IV .Q24H CRISTHIAN Rx#: [id number] fentaNYL (PF) 1,000 mcg 85.575 In Sodium Chloride 0.9% 80 ml @ Per Protocol IV . Q0M CRISTHIAN Rx#:[id number] fentaNYL (PF) 2,500 mcg 267.16 In Sodium Chloride 0.9% 200 ml @ Per Protocol IV .Q0M CRISTHIAN Rx#:[id number] propofoL 1,000 mg In 161.650 200 100 Empty Bag 1 bag @ Titrate IV .Q0M CRISTHIAN Rx#: [id number] Tube Feeding 495 205 123 Other 90 30 60 Output: Urine 1105 2075 1560 Other: Voiding Method Indwelling Catheter Indwelling Catheter Indwelling Catheter ABP, PAP, CO, CI - Last Documented Arterial Blood Pressure 108/82 - Exam -GENERAL: The patient is intubated and sedated HEENT: Pupils are round and equally reacting to light. EOMI. No scleral icterus. No conjunctival pallor. Normocephalic, atraumatic. No pharyngeal erythema. No thyromegaly. CARDIOVASCULAR: S1 and S2 present. No murmurs, rubs, or gallops. -PULMONARY: Chest is clear to auscultation, no wheezing or crackles. Bilateral chest tube placement ABDOMEN: Soft, nontender, nondistended, normoactive bowel sounds. No palpable organomegaly. MUSCULOSKELETAL: No joint swelling or deformity. EXTREMITIES: No cyanosis, clubbing, or pedal edema. NEUROLOGICAL: Gross neurological examination did not reveal any focal deficits. SKIN: No rashes. no petechiae. - Labs CBC & Chem 7: 04/10/20 04:00 04/10/20 04:00 Labs: Abnormal Lab Results - Last 24 Hours (Table) 04/10/20 04/10/20 04/10/20 Range/Units 00:18 04:00 04:00 RBC 3.69 L (3.80-5.40) m/uL Hgb 8.1 L (11.4-16.0) gm/dL Hct 27.9 L (34.0-46.0) % MCV 75.6 L (80.0-100.0) fL MCH 21.8 L (25.0-35.0) pg MCHC 28.9 L (31.0-37.0) g/dL RDW 16.2 H (11.5-15.5) % Neutrophils # 8.5 H (1.3-7.7) k/uL Lymphocytes # 0.8 L (1.0-4.8) k/uL ABG pCO2 (35-45) mmHg ABG pO2 (83-108) mmHg ABG HCO3 (21-25) mmol/L ABG Total CO2 (19-24) mmol/L ABG O2 Saturation (94-97) % Sodium 147 H (137-145) mmol/L Chloride 108 H (98-107) mmol/L Carbon Dioxide 38 H (22-30) mmol/L BUN 42 H (7-17) mg/dL Glucose 138 H (74-99) mg/dL POC Glucose (mg/dL) 137 H (75-99) mg/dL 04/10/20 04/10/20 04/10/20 Range/Units 05:33 06:01 11:57 RBC (3.80-5.40) m/uL Hgb (11.4-16.0) gm/dL Hct (34.0-46.0) % MCV (80.0-100.0) fL MCH (25.0-35.0) pg MCHC (31.0-37.0) g/dL RDW (11.5-15.5) % Neutrophils # (1.3-7.7) k/uL Lymphocytes # (1.0-4.8) k/uL ABG pCO2 57 H (35-45) mmHg ABG pO2 211 H (83-108) mmHg ABG HCO3 36 H (21-25) mmol/L ABG Total CO2 37 H (19-24) mmol/L ABG O2 Saturation 100.0 H (94-97) % Sodium (137-145) mmol/L Chloride (98-107) mmol/L Carbon Dioxide (22-30) mmol/L BUN (7-17) mg/dL Glucose (74-99) mg/dL POC Glucose (mg/dL) 136 H 141 H (75-99) mg/dL Assessment and Plan Assessment: Bilateral patchy groundglass opacities Secondary to pneumonia. Patient possible ARDS Acute hypoxic respiratory failure secondary to pneumonia currently patient is on mechanical ventilator. Bilateral pneumothorax. Status post bilateral chest tube placement. Acute asthma exacerbation Recent history of IV drug abuse, about 2 weeks prior to admission non-Compliance to therapy. The patient left [place] in [facility] History of ALL currently in remission. History of Anxiety Nicotine dependence, everyday smoker Plan: This is a 29 years old female who presents with bilateral pneumonia and possible ARDS and bilateral pneumothorax status post chest tube. Continue with antibiotic, continue with steroids and IV Lasix. The pain management. Follow- up recommendation by pulmonary/critical care team R following the case closely. Labs and medication were reviewed.. Continue same treatment. Continue with symptomatic treatment. Resume home medication. Monitor lytes and vitals. DVT and GI prophylaxis. Further recommendationsas per clinical course of the patient DVT prophylaxis: Subcutaneous Lovenox GI Prophylaxis: Pepcid Prognosis is guarded
[2020-04-10 21:51] LABS: ABG PCO2 >120 mmHg (35-45); ABG PH 7.09 (7.35-7.45)
--- NOTE | 2020-04-10 22:06 | PN ---
PROGRESS NOTE DATE OF SERVICE: 04/10/2020 REASON FOR FOLLOWUP: Pneumonia. INTERVAL HISTORY: The patient is currently afebrile. The patient is hemodynamically stable, not on pressor support. FiO2 is currently stable at 35%. No significant purulent secretions through the ET. She is scheduled for trach and PEG this afternoon. PHYSICAL EXAMINATION: Her blood pressure is 103/72 with a pulse of 120, temperature 98. She is 98% on 35% FiO2. General description is a middle-aged female intubated on the vent. RESPIRATORY SYSTEM: Unlabored breathing with decreased breath sounds at the base. No wheeze. HEART: S1, S2. Regular rate and rhythm. ABDOMEN: Soft. No tenderness. LABS: Hemoglobin is 8.1, white count 9.7, BUN of 42, creatinine 0.60. Sputum has been negative. DIAGNOSTIC IMPRESSION AND PLAN: Acute respiratory failure which is multifactorial with a component of pneumonia, covered with cefepime. Cultures have been negative. Bronch culture did show evidence of CMV, more likely and not a cause of her pneumonia. The patient did have evidence of pneumothorax and is being followed closely by Pulmonary. Continue with supportive care. MMODL / IJN: [id number] /
--- NOTE | 2020-04-10 22:08 | XR ---
EXAMINATION TYPE: XR chest 1V portable DATE OF EXAM: 04/10/2020 COMPARISON: Today HISTORY: Hypoxemia TECHNIQUE: Single view FINDINGS: There is left side chest tube with the tip at the left lung apex. There is 25% left side pn eumothorax. There is similar at least 35% right-sided pneumothorax. There is right chest tube with th e tip over the right midlung field. There is nasogastric tube in the stomach. Endotracheal tube is 1. 4 cm from the sandra. Heart size is normal. There is patchy infiltrates in the left lung IMPRESSION: Bilateral pneumothorax not significantly different than exam this morning. Left side pulm onary infiltrates and atelectasis unchanged. No heart failure.
[2020-04-10] MEDS: CISATRACURIUM 200 MG in SODIUM CHLORIDE 0.9% 180 ML IV SCH (22:32)
[2020-04-10 22:33] LABS: ABG Base Excess 6.1 mmol/L; ABG HCO3 34 mmol/L (21-25); ABG Oxygen Saturation 99.8 % (94-97); ABG PH 7.21 (7.35-7.45); ABG PO2 >400 mmHg (83-108); ABG TCO2 37 mmol/L (19-24)
[2020-04-10 22:36] LABS: ABG PCO2 85 mmHg (35-45)
[2020-04-11] LABS: Glucose,Whole Blood 130 mg/dL (75-99)
[2020-04-11] MEDS: INSULIN ASPART (NovoLOG) 100 UNIT/ML VIAL SQ SCH ×4 (00:01→17:45)
[2020-04-11] MEDS: methylPREDNISolone SOD SUCCI 125 MG/2 ML VIAL IV SCH ×4 (00:03→17:24)
[2020-04-11] MEDS: fentaNYL (PF) 2,500 MCG in SODIUM CHLORIDE 0.9% 200 ML IV SCH ×2 (05:21→22:24)
[2020-04-11 05:26] LABS: Glucose,Whole Blood 151 mg/dL (75-99)
[2020-04-11 05:50] LABS: Glucose,Whole Blood 140 mg/dL (75-99)
[2020-04-11 06:27] LABS: ABG Base Excess 10.6 mmol/L; ABG HCO3 38 mmol/L (21-25); ABG Oxygen Saturation 99.8 % (94-97); ABG PH 7.27 (7.35-7.45); ABG PO2 139 mmHg (83-108); ABG TCO2 40 mmol/L (19-24); Allen Test Performed? Yes
[2020-04-11 06:33] LABS: ABG PCO2 81 mmHg (35-45)
--- NOTE | 2020-04-11 07:01 | XR ---
EXAMINATION TYPE: XR chest 1V portable DATE OF EXAM: 04/11/2020 COMPARISON: 04/06/2020 HISTORY: SOB, Follow Up FINDINGS: Indwelling tubes and catheters are unchanged. Bilateral chest tubes are in place. Bilateral pneumotho races are stable. No change in scattered infiltrates. Stable appearance of the cardio-mediastinal structures at this time. IMPRESSION: 1. Stable portable chest. Clinical correlation and follow up until resolution is recommended.
[2020-04-11] MEDS: IPRATROPIUM-ALBUTEROL 3 ML NEB INHALATION SCH ×4 (07:16→21:09)
[2020-04-11 07:17] LABS: Anisocytosis Slight; Basophils % (A) 0 %; Eosinophils % (A) 0 %; HCT 30.6 % (34.0-46.0); HGB 8.7 gm/dL (11.4-16.0); Hypochromasia Marked; Lymphocytes # (A) 0.8 k/uL (1.0-4.8); Lymphocytes % (A) 8 %; MCH 22.1 pg (25.0-35.0); MCHC 28.4 g/dL (31.0-37.0); MCV 77.6 fL (80.0-100.0); Mean Platelet Volume 8.1; Microcytosis Slight; Monocytes # (A) 0.5 k/uL (0-1.0); Monocytes % (A) 5 %; Neutrophils # (A) 8.5 k/uL (1.3-7.7); Neutrophils % (A) 85 %; Platelet Count 254 k/uL (150-450); RBC 3.94 m/uL (3.80-5.40); RDW 16.5 % (11.5-15.5)
[2020-04-11 07:23] LABS: Prothrombin Time 10.3 sec (9.0-12.0)
[2020-04-11 07:24] LABS: ALT 81 U/L (4-34); AST 49 U/L (14-36); African American GFR (CKD) >90 (>60 ml/min/1.73 sqM); Albumin 3.6 g/dL (3.5-5.0); Alkaline Phosphatase 56 U/L (38-126); Blood Urea Nitrogen 53 mg/dL (7-17); Chloride 112 mmol/L (98-107); Glucose 130 mg/dL (74-99); Non-African American GFR(CKD) >90 (>60 ml/min/1.73 sqM); Potassium 4.5 mmol/L (3.5-5.1); Sodium 152 mmol/L (137-145); Total Bilirubin 0.5 mg/dL (0.2-1.3)
[2020-04-11 07:31] LABS: Anion Gap 1 mmol/L; Carbon Dioxide 39 mmol/L (22-30)
[2020-04-11] MEDS: FERROUS SULFATE 325 MG TAB PO SCH ×2 (08:08→16:42)
[2020-04-11] MEDS: acetaZOLAMIDE 250 MG TAB PO SCH (08:15)
[2020-04-11] MEDS: busPIRone HCl 5 MG TAB PO SCH ×2 (08:15→20:31)
[2020-04-11] MEDS: SODIUM CHLORIDE 0.9% 1,000 ML IV SCH ×2 (08:22→16:24)
[2020-04-11] MEDS: CEFEPIME 2 GM in SODIUM CHLORIDE 0.9% 100 ML IVPB SCH ×2 (08:29→20:33)
[2020-04-11] MEDS: CHLORHEXIDINE GLUCONATE 15 ML CUP MUCOUS MEM SCH ×2 (08:30→20:33)
[2020-04-11] MEDS: FUROSEMIDE 10 MG/ML 2 ML VIAL IV SCH (08:30)
[2020-04-11] MEDS: FAMOTIDINE 20 MG/2 ML VIAL IV SCH ×2 (08:30→20:33)
[2020-04-11] MEDS: ENOXAPARIN 40 MG/0.4 ML SYRINGE SQ SCH (08:30)
[2020-04-11] MEDS: NOREPINEPHRINE 32 MG in SODIUM CHLORIDE 0.9% 218 ML IV SCH (10:13)
[2020-04-11 11:35] LABS: Glucose,Whole Blood 131 mg/dL (75-99)
--- NOTE | 2020-04-11 15:06 | P.OP ---
Date of Procedure: 04/11/20 Preoperative Diagnosis: Respiratory failure Malnutrition Postoperative Diagnosis: Respiratory failure Malnutrition Procedure(s) Performed: Tracheostomy PEG tube placement Anesthesia: SHAYE Surgeon: Armando Torres Pathology: none sent Condition: stable Disposition: PACU Description of Procedure: The patient's placed on the operative table in the supine position. She received general anesthesia. Her neck was prepped and draped usual sterile fashion. A standard Justin incision was made approximately 2 cm above the sternal notch. Using left cautery the subcutaneous tissue divided. The platysma was divided.. The [place] retractor was Placed in the wound. The trachea was exposed. A tracheotomy was performed and second third rings. A #8 Portex tracheostomy tube was placed into the trachea under direct vision. The patient The ventilator and tidal CO2 was confirmed. The skin incision site was closed with 3-0 nylon. The tracheostomy tube was secured with trach ties. Next the gastroscope placed oropharynx passed in the esophagus into the stomach. Scope was then placed through the pylorus. The first and second portion of the duodenum appeared normal. Scope was then brought back the antrum and then the stomach was insufflated with air. A suitable light reflux was seen the anterior abdominal wall. The skin was incised and the needles placed and stomach under direct visualization. The wire was placed through the needle. The wire was then snared. The wire was brought the oropharynx. The wire was used to position the PEG tube over top the wire and brought down to the stomach. The PEG tube was secured at the 3 cm cl. The patient top she will was sent to the ICU in stable condition.
--- NOTE | 2020-04-11 15:43 | P.PN ---
Subjective Progress Note Date: 04/11/20 Principal diagnosis: Acute hypoxic respiratory failure secondary to bilateral pneumonia and bilateral pneumothoraces. And Underlying severe COPD 04/04/2020 the patient is being seen for a follow-up. The patient is going to undergo bronchoscopy today. I was able to obtain records from the hospital as the [facility] and at that time the patient was hospitalized for rae ateral pneumonia. CAT scan of the chest findings were similar to the ones that he had he [place]. The patient underwent further investigation including alpha-1 antitrypsin level came back within normal, cystic fibrosis mutation screen that came back negative, HIV screen that came back negative, fungal screen including Histoplasma urine antigen, cryptococcal serum antigen and Aspergillus antibodies and all of these were negative. For now, the patient is scheduled to undergo bronchoscopy and bronchial lavage. Echocardiogram showed no evidence of any valvular disease or vegetations. She is still short of breath and she has increased dyspnea cough chest tightness and wheezing. No significant sputum production. On 04/05/2020, the patient is in intensive care unit. Mother the patient underwent a bronchoscopy and bronchial lavage yesterday and the procedure was essentially uncomplicated. 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 At that point, the emergency team was called and the patient was evaluated twice. During the second evaluation, chest x-ray was done and the patient was found to have diffuse but the pulmonary infiltrates in addition to hypoxic respiratory failure. The patient was started on a BiPAP at a pressure of 12/5 with an FiO2 of 60% and the patient got transferred to the ICU. She was also given a dose of Lasix. She started producing adequate amount of urine output. Nevertheless, she continued to have agonal breathing, low tidal volume and increased tachypnea with impending signs of respiratory failure even while being on a BiPAP. At that point, I made a decision to intubate the patient in intensive care unit. The patient was intubated by #8 orotracheal tube. She was placed on a mechanical ventilator. A triple lumen catheter was established. An outlying catheter was also established. The post intubation blood gas showed a pH of 7.25 with a pCO2 of 87 pO2 of 386 and this was done on assist control mode at the rate of 20 with tidal volume of 350 and FiO2 of 100% with a PEEP of 5. FiO2 is down to 50%. The patient at this point in time is sedated with propofol and the patient is calm and comfortable. Fentanyl was also added to improve for sedation while being a mechanical ventilator. Results of the bronchioloalveolar lavage is still negative. No microbial growth. The patient remains on a combination of IV cefepime and vancomycin. The post intubation chest x-ray showed bilateral pleural thickening and bilateral airspace disease seen although somewhat improved compared to the earlier chest x-rays. ET tube was around 1 cm above the sandra. Blood work from this morning showed a hemoglobin of 7.2. White cell count of 15.8. Aggressive the blood work essentially within normal limits. On 04/06/2020, the patient remains intubated on a mechanical. On today's evaluation the patient is on propofol running at 50 g per KG per minute. The patient is also on fentanyl drip at 3 g per KG per minute. IV fluids at KVO and the patient is on levo fed at 0.1 mg per KG per minute. The patient remains on mechanical ventilator on assist control mode at the rate of 24 with a tidal volume loss was 75 with an FiO2 of 50% and PEEP of 5. Peak airway pressure 37. Plateau airway pressure is 35. Patient is receiving tube feed with vital high protein at the rate of 10 mL an hour and the patient will be advanced to goal. The bronchioloalveolar lavage that was done earlier came back negative for any microbial growth. A chest x-ray from today shows some improvement and by the pulmonary infiltrate that was established on yesterday's chest x-ray. The patient remains on a combination of cefepime and vancomycin. Lasix will be restarted. No other significant events otherwise for now. She is requiring norepinephrine infusion for blood pressure control. Echocardiogram at shown a preserved LV function without any significant LV dysfunction. Triple lumen catheter has been established and have right femoral vein. She also has an arterial line catheter. I was concerned about elevated airway pressures in this patient. Unable to ventilate with a higher volumes as the patient's pressure will go significantly high. I switch this patient to a pressure control mode of ventilation. 04/07/2020, the patient is being seen for follow-up. The patient remains intubated on a mechanical ventilator. The patient is on assist control ventilation and on today's evaluation the patient is on a pressure control of 30 with a PEEP of 5 and FiO2 of 50% with a rate of 34. The blood gases from today showed a pH of 7.47 with a pCO2 of 69 a pO2 of 168 and a follow-up chest x-ray from today showed improvement in the bilateral pulmonary infiltrates. Nevertheless, there was a note of a right-sided pneumothorax. Based on this, a CAT scan of the chest was done to confirm the findings and the patient did have a right-sided pneumothorax there was moderate in size in addition to bilateral diffuse bilateral a disease and small bilateral pleural effusions. At that point, a 24-[place] chest tube was inserted in the right hemithorax and a follow- up chest x-ray is pending for now. The patient remains hemodynamically stable and there was no evidence of any tension due to this pneumothorax. I also did some ventilator changes. I dropped the pressure control down to 20 and dropped a respiratory rate down to 24 and drop the FiO2 down to 40%. A repeat blood gases was done and the repeat blood gases showed a pH of 7.37 with a pCO2 of 89 pO2 of 95. The patient's white cell count of 10.4 with hemoglobin of 7.2. The rest of the blood work and electrodes with a component of metabolic alkalosis with a serum bicarb of 50 and a sodium of 141. The patient remains on broad- spectrum antibiotics. Vancomycin was discontinued as the patient's bronchial alveolar lavage did not reveal any microbial growth and I'm going to keep this patient only on cefepime for now. The patient remains sedated with a combination of fentanyl erythematous events per KG per minute and for prophylaxis for microvascular KG per minute. The patient is also being diuresis with Lasix at a dose of 20 mg IV push every 12 hours. The patient is on vital high protein at the rate of 30 mL an hour. 04/08/2020, the patient remains intubated on a mechanical ventilator. Unfortunately, she continues to have a small right-sided pneumothorax despite a chest tube insertion. The air leak from the right-sided chest tube is minimal at this point in time and output is minimal. The patient is extremely debilitated. 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 She has advanced COPD with chronic lung disease. She is currently on a pressure control mode of ventilation with a pressure control of 20 with an FiO2 of 40% with a PEEP of 5 and the rate of 24. The blood gases showed a pH of 7.43 with a pCO2 of 84 and pO2 of 111. The peak airway pressure 33. The static airway pressure is 27. The patient remains sedated with propofol at the rate of 50 g per KG per minute and fentanyl is running at a rate of 3 g per KG per minute. Norepinephrine is running at 0.02 g per KG per minute. Cultures from the bronchioloalveolar lavage has been negative and the patient is still on cefepime as a broad-spectrum antibiotic coverage for now. She is being diuresed with IV Lasix at a dose of 20 mg IV push every 12 hours. The dose of Lasix will be tapered as the patient has been adequate fluid balance. The chest x-ray findings shows improvement and by the pulmonary infiltrates. There is however a stable loculated right-sided pneumothorax and the right-sided chest tube is in good location. ET tube is in good location. The patient was started on enteral feeding for nutritional support. I'm very much convinced that the patient would benefit from a PEG and trach as the patient has advanced lung disease and she is quite debilitated and malnourished at this young age. On a separate note, earlier this morning the patient went into a bout of an SVT with a heart rate of 160. The patient was given 2 doses o f IV Rocephin, 6 mg and 12 mg without success. Her heart rate gradually is improving at this point in time and over the next few hours, the patient's heart rate dropped down to 112 Reevaluated today on 04/09/20, patient remains intubated and mechanically ventilated. She is on pressure control mode of mechanical ventilation, pressure control is set at 24, inspiratory time is 0.65 seconds patient is on 40% FiO2 and PEEP of 5. She was intubated on 04/05/20, she is on propofol at 50 mcg/kg/m, fentanyl at 3 mcg/kg/h, she is also on norepinephrine at 0.01 mcg/kg/m. IV fluid is at 20 mL per hour. Patient has a right femoral triple- lumen catheter. Right radial arterial line. Right-sided chest tube with air leak noted. And today she ended up with a left-sided chest tube for left-sided pneumothorax which was noted on the chest x-ray earlier today. Patient is on tube feeding vital Hb 53 mL/h and this is the goal is also on cefepime empirically. ABG today showed a pO2 of 148 pCO2 of 74 pH of 7.34. WBC count is 7.6 hemoglobin is 7.8. Electrolytes and renal profile are normal. Bicarb is 39. This morning chest x-ray showed left-sided pneumothorax which is a new hence I went ahead and placed a left sided chest tube 28 [place] chest tube was placed since the patient is on mechanical ventilation. Not much changes noted in the pneumothorax after the chest tube placement Reevaluated today on 04/10/20, patient remains intubated and mechanically ventilated ventilator settings are pressure control set at 26, FiO2 is 35%, PEEP is at 5, inspiratory time is 0.70 and the rate is 24. Patient seems to be doing better today, better and adequate tidal volumes noted, just over 300 mL tidal volumes. Chest x-ray continues to show bilateral pneumothoraces secondary to barotrauma. Chest tubes are both in place. ABG today showed a pO2 of 211 pCO2 of 57 pH of 7.40, hence I cut down the FiO2 to 35%. Both tubes continued to have intermittent leaks. Patient is on fentanyl which I cut down to 1 mcg/kg/h and she is on propofol at 50. IV fluids at KVO, patient is do not feeding at present mostly because she is scheduled to undergo a PEG tube placement and tracheostomy today. CBC is relatively normal except for hemoglobin of 8.1. Electrolytes showed a sodium of 147 bicarb history renal profile is normal Reevaluated today on 04/11/20, patient remains in the ICU, intubated and m echanically ventilated. Patient remains on assist control rate of 30 tidal volume is 250 FiO2 is 40% and PEEP of 5. ABG today showed a pO2 of 139 pCO2 of 81 pH of 7.27. Chest x-ray continues to show bilateral pneumothoraces, not expanding, unchanged. Continues to have 2 bilateral chest tubes. One every hour side. Continues to have some air leak in the right-sided chest tube, and intermittent leak in the left sided chest tube. Patient remains on propofol at 50 mcg/kg/m, she is also on fentanyl at 50 mcg/kg/m, Nimbex at 1 mcg/kg/m, IV fluid is at KVO. Patient is also on enteral feeding. Yesterday the patient was switched from pressure control to assist control mode of mechanical ventilation. And that seems to be working better for the patient today. Gases are actually a bit improving. Patient is scheduled to undergo tracheostomy and PEG tube placement today. CBC showed WBC count of 10 hemoglobin of 8.7 hematocrit of 30.6. Her sodium seems to be high today at 152 hence the patient will be placed on free water via nasogastric tube, and we'll switch her IV fluid to D5W. Will discontinue Lasix. Objective - Vital Signs Vital signs: Vital Signs Temp 98.1 F 04/11/20 12:00 Pulse 101 H 04/11/20 15:30 Resp 30 H 04/11/20 15:30 BP 101/72 04/11/20 14:00 Pulse Ox 100 04/11/20 15:30 Intake & Output 04/10/20 04/11/20 04/11/20 18:59 06:59 18:59 Intake Total 1115.827 934.447 513.461 Output Total 5618 548 8141 Balance -584.173 6.447 -588.539 Weight 40 kg 40 kg Intake: IV 266 226 207 Pressure bag 36 36 27 Sodium Chloride 0.9% 1, 230 190 180 000 ml @ 20 mls/hr IV . Q24H [facility] Rx#:[id number] Intake, IV Titration 584.827 432.447 306.461 Amount Cefepime 2 gm In Sodium 50 100 Chloride 0.9% 100 ml @ 25 mls/hr IVPB Q12HR [facility] Rx #:[id number] Cisatracurium 200 mg In 6.2 42.016 Sodium Chloride 0.9% 180 ml @ 1 MCG/KG/MIN 3.12 mls/hr IV .Q24H [facility] Rx#: [id number] Lactated Ringers 1,000 ml 20 100 80 @ 20 mls/hr IV .Q24H [facility] Rx#:[id number] fentaNYL (PF) 2,500 mcg 314.827 145.687 In Sodium Chloride 0.9% 200 ml @ Per Protocol IV .Q0M [facility] Rx#:[id number] propofoL 1,000 mg In 200 80.56 184.445 Empty Bag 1 bag @ Titrate IV .Q0M [facility] Rx#: [id number] Tube Feeding 205 246 Other 60 30 Output: Chest Tube Drainage 18 Chest Tube Left 15 Chest Tube Right 3 Urine 7455 854 6850 Estimated Blood Loss 2 Other: Voiding Method Indwelling Catheter Indwelling Catheter Indwelling Catheter ABP, PAP, CO, CI - Last Documented Arterial Blood Pressure 136/78 - Exam atient thinking cachectic female patient, she looks quite emaciated. She has multiple tattoos. Intubated and mechanically ventilated. Head atraumatic, normocephalic. HEENT: PERRLA, EOMI, neck, no neck masses, no JVD, no stridor.. CHEST EXAMINATION: Trachea is central. Symmetrical expansion.bilateral diminished air entry and wheezing. CARDIAC: Normal S1, S2 with no gallops. No murmurs ABDOMEN: Soft. Bowel sounds normal. No organomegaly. No abdominal bruits. Extremities: reveal no edema. No clubbing or cyanosis Neurologically sedated, opens eyes to painful stimuli, could not be fully assessed. Skin: No rash or skin lesions. Psychiatric: Could not assess. Patient is sedated Musculoskeletal: Significant muscle wasting noted bilaterally and the patient is extremely frail - Labs CBC & Chem 7: 04/11/20 06:55 04/11/20 06:55 Labs: Abnormal Lab Results - Last 24 Hours (Table) 04/10/20 04/10/20 04/10/20 Range/Units 17:52 21:35 22:31 Hgb (11.4-16.0) gm/dL Hct (34.0-46.0) % MCV (80.0-100.0) fL MCH (25.0-35.0) pg MCHC (31.0-37.0) g/dL RDW (11.5-15.5) % Neutrophils # (1.3-7.7) k/uL Lymphocytes # (1.0-4.8) k/uL ABG pH 7.09 L* 7.21 L (7.35-7.45) ABG pCO2 >120 H* 85 H* (35-45) mmHg ABG pO2 >400 H >400 H (83-108) mmHg ABG HCO3 34 H (21-25) mmol/L ABG Total CO2 37 H (19-24) mmol/L ABG O2 Saturation 100.0 H 99.8 H (94-97) % Sodium (137-145) mmol/L Chloride (98-107) mmol/L Carbon Dioxide (22-30) mmol/L BUN (7-17) mg/dL Glucose (74-99) mg/dL POC Glucose (mg/dL) 182 H (75-99) mg/dL AST (14-36) U/L ALT (4-34) U/L 04/10/20 04/11/20 04/11/20 Range/Units 23:58 05:24 05:49 Hgb (11.4-16.0) gm/dL Hct (34.0-46.0) % MCV (80.0-100.0) fL MCH (25.0-35.0) pg MCHC (31.0-37.0) g/dL RDW (11.5-15.5) % Neutrophils # (1.3-7.7) k/uL Lymphocytes # (1.0-4.8) k/uL ABG pH (7.35-7.45) ABG pCO2 (35-45) mmHg ABG pO2 (83-108) mmHg ABG HCO3 (21-25) mmol/L ABG Total CO2 (19-24) mmol/L ABG O2 Saturation (94-97) % Sodium (137-145) mmol/L Chloride (98-107) mmol/L Carbon Dioxide (22-30) mmol/L BUN (7-17) mg/dL Glucose (74-99) mg/dL POC Glucose (mg/dL) 130 H 151 H 140 H (75-99) mg/dL AST (14-36) U/L ALT (4-34) U/L 04/11/20 04/11/20 04/11/20 Range/Units 06:22 06:55 06:55 Hgb 8.7 L (11.4-16.0) gm/dL Hct 30.6 L (34.0-46.0) % MCV 77.6 L (80.0-100.0) fL MCH 22.1 L (25.0-35.0) pg MCHC 28.4 L (31.0-37.0) g/dL RDW 16.5 H (11.5-15.5) % Neutrophils # 8.5 H (1.3-7.7) k/uL Lymphocytes # 0.8 L (1.0-4.8) k/uL ABG pH 7.27 L (7.35-7.45) ABG pCO2 81 H* (35-45) mmHg ABG pO2 139 H (83-108) mmHg ABG HCO3 38 H (21-25) mmol/L ABG Total CO2 40 H (19-24) mmol/L ABG O2 Saturation 99.8 H (94-97) % Sodium 152 H (137-145) mmol/L Chloride 112 H (98-107) mmol/L Carbon Dioxide 39 H (22-30) mmol/L BUN 53 H (7-17) mg/dL Glucose 130 H (74-99) mg/dL POC Glucose (mg/dL) (75-99) mg/dL AST 49 H (14-36) U/L ALT 81 H (4-34) U/L 04/11/ Range/Units 11:33 Hgb (11.4-16.0) gm/dL Hct (34.0-46.0) % MCV (80.0-100.0) fL MCH (25.0-35.0) pg MCHC (31.0-37.0) g/dL RDW (11.5-15.5) % Neutrophils # (1.3-7.7) k/uL Lymphocytes # (1.0-4.8) k/uL ABG pH (7.35-7.45) ABG pCO2 (35-45) mmHg ABG pO2 (83-108) mmHg ABG HCO3 (21-25) mmol/L ABG Total CO2 (19-24) mmol/L ABG O2 Saturation (94-97) % Sodium (137-145) mmol/L Chloride (98-107) mmol/L Carbon Dioxide (22-30) mmol/L BUN (7-17) mg/dL Glucose (74-99) mg/dL POC Glucose (mg/dL) 131 H (75-99) mg/dL AST (14-36) U/L ALT (4-34) U/L Assessment and Plan Assessment: Impression: Acute hypoxic respiratory failure with bilateral infiltrates, consistent with ARDS. Acute exacerbation of COPD. Bilateral pneumothoraces most likely secondary to barotrauma. Status post placement of a left and right-sided chest tubes for bilateral pneumothoraces. History of IV drug abuse. History of seizure disorder. Generalized anxiety disorder. Remote history of acute lymphocytic leukemia, in remission. Severe malnutrition, BMI is 20.3, this is protein calorie malnutrition, severe in nature. Chronic hypercapnic respiratory failure with metabolic compensation. Hypernatremia with free water deficit, we will address accordingly. Recommendation: Arrange for tracheostomy and PEG tube placement today. Continue present supportive care measures. Continue ventilatory support. Continue assist control mode of mechanical ventilation. Continue nutritional support. Continue antibiotics. Continue bronchodilators and IV Solu-Medrol. Not ready for any form of weaning. Scheduled to undergo PEG tube placement and tracheostomy today. Continue Nimbex, fentanyl, and propofol. Continue GI and DVT prophylaxis. Change IV fluid to D5W to correct her hypernatremia. Remains critically ill, We'll continue to follow. Critical care time is 35 minutes Time with Patient: Greater than 30
[2020-04-11] MEDS: DEXTROSE 5% IN WATER 1,000 ML IV SCH (15:54)
[2020-04-11 17:33] LABS: Glucose,Whole Blood 160 mg/dL (75-99)
--- NOTE | 2020-04-11 21:40 | P.PN ---
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 Patient does have history of IV drug abuse and stopped using approximately 2 weeks ago. Patient was seen at outside hospital in [place] for difficulty in breathing. Patient left AGAINST MEDICAL ADVICE. Patient came to [place] to see her family and has been having worsening symptoms again with cough and dyspnea. Chest x-ray showed diffuse bilateral pleural parenchymal changes.Coronavirus PCR and influenza A and B negative.CT angiogram showed no evidence of pulmonary embolism. Patient is status post bronchoscopy with bronchial lavage on 04/04. Patient eventually need intubation and placed on mechanical ventilation for worsening respiratory failure. Her hospital course was complicated by right pneumothorax and chest tube was placed by surgery team. Today she developed left-sided pneumothorax with another chest tube was placed. Patient remains on broad-spectrum antibiotics with cefepime , she was on IV vancomycin which is a stopped now. Also she is on small doses of IV Lasix 20 mg daily and salmeterol 60 mg. Surgery team were consulted for PEG tube and tracheostomy placement 04/10/2020 Patient remains in the ICU for COPD and pneumonia, his currently on cefepime and IV Solu-Medrol. He is intubated on mechanical ventilation was managed closely by pulmonary/critical care team. As per the pulmonary team patient is doing better today. His hospital course is complicated by bilateral pneumothoraces status post bilateral chest tube. Also patient is undergoing PEG tube and tracheostomy placement Also patient is still tachycardic and tachypneic. Also patient is on Lasix 20 mg twice daily, was once daily yesterday 04/11/2020 Patient remains in the ICU on mechanical ventilation and looks patient is doing better with her oxygenation and depressed ventilation with pulmonary/critical care team followed closely. She still has bilateral chest tubes for bilateral pneumothoraces Patient underwent PEG tube placement and tracheostomy placement by surgery team Her sodium was trending up to 152, D5 W was started and Lasix was stopped. Review of systems: N/a Active Medications Generic Name Dose Route Start Last Admin Trade Name Freq PRN Reason Stop Dose Admin Acetaminophen 650 mg 04/03/20 13:35 04/03/20 16:14 Acetaminophen Tab 325 Mg Tab PO 650 mg Q6HR PRN Administration Fever and/ or Pain Acetazolamide 500 mg 04/08/20 09:00 04/11/20 08:15 Acetazolamide 250 Mg Tab PO 04/12/20 09:01 Not Given DAILY CRISTHIAN Albuterol/Ipratropium 3 ml 04/02/20 17:41 04/04/20 02:02 Ipratropium-Albuterol 3 Ml Neb INHALATION 3 ml RT-Q4H PRN Administration Shortness Of Breath Or Wheezing Albuterol/Ipratropium 3 ml 04/02/20 20:00 04/11/20 21:09 Ipratropium-Albuterol 3 Ml Neb INHALATION 3 ml RT-QID CRISTHIAN Administration Buspirone HCl 7.5 mg 04/04/20 21:00 04/11/20 20:31 Buspirone Hcl 5 Mg Tab PO Not Given BID CRISTHIAN Chlorhexidine Gluconate 15 ml 04/05/20 21:00 04/11/20 20:33 Chlorhexidine Gluconate 15 Ml Cup MUCOUS MEM 15 ml BID CRISTHIAN Administration Enoxaparin Sodium 40 mg 04/03/20 09:00 04/11/20 08:30 Enoxaparin 40 Mg/0.4 Ml Syringe SQ 40 mg DAILY CRISTHIAN Administration Famotidine 20 mg 04/09/20 21:00 04/11/20 20:33 Famotidine 20 Mg/2 Ml Vial IV 20 mg Q12HR CRISTHIAN Administration Ferrous Sulfate 325 mg 04/05/20 07:30 04/11/20 16:42 Ferrous Sulfate 325 Mg Tab PO Not Given BID-W/MEALS CRISTHIAN Guaifenesin/Codeine Phosphate 10 ml 04/03/20 15:09 04/04/20 01:57 Guaifenesin-Coden 100-10mg/5ml 10 Ml Cup PO 10 ml Q6H PRN Administration Cough Cefepime HCl 2 gm/ Sodium 100 mls @ 25 mls/hr 04/03/20 10:30 04/11/20 20:33 Chloride IVPB 25 mls/hr Q12HR CRISTHIAN Administration Propofol 1,000 mg/ IV Solution 100 mls @ 0 mls/hr 04/05/20 10:45 04/11/20 20:25 IV 50 mcg/kg/min .Q0M CRISTHIAN 12 mls/hr Administration Protocol Titrate Norepinephrine Bitartrate 32 250 mls @ 1.23 mls/hr 04/05/20 11:15 04/11/20 10:13 mg/ Sodium Chloride IV Not Given .Q24H CRISTHIAN Protocol 0.05 MCG/KG/MIN Fentanyl Citrate 2,500 mcg/ 250 mls @ 0 mls/hr 04/09/20 15:00 04/11/20 05:21 Sodium Chloride IV 3 mcg/kg/hr .Q0M CRISTHIAN 15.6 mls/hr Administration Protocol Per Protocol Cisatracurium Besylate 200 mg/ 200 mls @ 3.12 mls/hr 04/10/20 22:30 04/11/20 10:00 Sodium Chloride IV 3 mcg/kg/min .Q24H CRISTHIAN 9.36 mls/hr Titration Protocol 1 MCG/KG/MIN Dextrose/Water 1,000 mls @ 100 mls/hr 04/11/20 15:45 04/11/20 15:54 Dextrose 5%-Water Iv Soln IV 100 mls/hr .Q10H CRISTHIAN Administration Insulin Aspart 0 unit 04/05/20 18:00 04/11/20 17:45 Insulin Aspart (Novolog) 100 Unit/Ml Vial SQ 3 unit Q6H CRISTHIAN Administration Protocol Lorazepam 1 mg 04/05/20 06:21 04/08/20 08:51 Lorazepam 2 Mg/Ml Inj IV 1 mg Q4HR PRN Administration Anxiety Methylprednisolone Sodium Succinate 60 mg 04/02/20 18:30 04/11/20 17:24 Methylprednisolone Sod Succi 125 Mg/2 Ml Vial IV 60 mg Q6HR CRISTHIAN Administration Ondansetron HCl 4 mg 04/03/20 15:08 04/03/20 16:14 Ondansetron 4 Mg/2 Ml Vial IVP 4 mg Q6HR PRN Administration Nausea And Vomiting Objective - Vital Signs Vital signs: Vital Signs Temp 98.1 F 04/11/20 12:00 Pulse 101 H 04/11/20 15:30 Resp 30 H 04/11/20 15:30 BP 101/72 04/11/20 14:00 Pulse Ox 100 04/11/20 15:30 Intake & Output 04/10/20 04/11/20 04/11/20 18:59 06:59 18:59 Intake Total 1115.827 934.447 513.461 Output Total 5296 133 7018 Balance -584.173 6.447 -588.539 Weight 40 kg 40 kg Intake: IV 266 226 207 Pressure bag 36 36 27 Sodium Chloride 0.9% 1, 230 190 180 000 ml @ 20 mls/hr IV . Q24H CRISTHIAN Rx#:[id number] Intake, IV Titration 584.827 432.447 306.461 Amount Cefepime 2 gm In Sodium 50 100 Chloride 0.9% 100 ml @ 25 mls/hr IVPB Q12HR CRISTHIAN Rx #:[id number] Cisatracurium 200 mg In 6.2 42.016 Sodium Chloride 0.9% 180 ml @ 1 MCG/KG/MIN 3.12 mls/hr IV .Q24H CRISTHIAN Rx#: [id number] Lactated Ringers 1,000 ml 20 100 80 @ 20 mls/hr IV .Q24H CRISTHIAN Rx#:[id number] fentaNYL (PF) 2,500 mcg 314.827 145.687 In Sodium Chloride 0.9% 200 ml @ Per Protocol IV .Q0M CRISTHIAN Rx#:[id number] propofoL 1,000 mg In 200 80.56 184.445 Empty Bag 1 bag @ Titrate IV .Q0M CRISTHIAN Rx#: [id number] Tube Feeding 205 246 Other 60 30 Output: Chest Tube Drainage 18 Chest Tube Left 15 Chest Tube Right 3 Urine 1309 044 8236 Estimated Blood Loss 2 Other: Voiding Method Indwelling Catheter Indwelling Catheter Indwelling Catheter ABP, PAP, CO, CI - Last Documented Arterial Blood Pressure 136/78 - Exam -GENERAL: The patient is intubated and sedated HEENT: Pupils are round and equally reacting to light. EOMI. No scleral icterus. No conjunctival pallor. Normocephalic, atraumatic. No pharyngeal erythema. No thyromegaly. CARDIOVASCULAR: S1 and S2 present. No murmurs, rubs, or gallops. -PULMONARY: Chest is clear to auscultation, no wheezing or crackles. Bilateral chest tube placement ABDOMEN: Soft, nontender, nondistended, normoactive bowel sounds. No palpable organomegaly. MUSCULOSKELETAL: No joint swelling or deformity. EXTREMITIES: No cyanosis, clubbing, or pedal edema. NEUROLOGICAL: Gross neurological examination did not reveal any focal deficits. SKIN: No rashes. no petechiae. - Labs CBC & Chem 7: 04/11/20 06:55 04/11/20 06:55 Labs: Abnormal Lab Results - Last 24 Hours (Table) 04/10/20 04/10/20 04/10/20 Range/Units 17:52 21:35 22:31 Hgb (11.4-16.0) gm/dL Hct (34.0-46.0) % MCV (80.0-100.0) fL MCH (25.0-35.0) pg MCHC (31.0-37.0) g/dL RDW (11.5-15.5) % Neutrophils # (1.3-7.7) k/uL Lymphocytes # (1.0-4.8) k/uL ABG pH 7.09 L* 7.21 L (7.35-7.45) ABG pCO2 >120 H* 85 H* (35-45) mmHg ABG pO2 >400 H >400 H (83-108) mmHg ABG HCO3 34 H (21-25) mmol/L ABG Total CO2 37 H (19-24) mmol/L ABG O2 Saturation 100.0 H 99.8 H (94-97) % Sodium (137-145) mmol/L Chloride (98-107) mmol/L Carbon Dioxide (22-30) mmol/L BUN (7-17) mg/dL Glucose (74-99) mg/dL POC Glucose (mg/dL) 182 H (75-99) mg/dL AST (14-36) U/L ALT (4-34) U/L 04/10/20 04/11/20 04/11/20 Range/Units 23:58 05:24 05:49 Hgb (11.4-16.0) gm/dL Hct (34.0-46.0) % MCV (80.0-100.0) fL MCH (25.0-35.0) pg MCHC (31.0-37.0) g/dL RDW (11.5-15.5) % Neutrophils # (1.3-7.7) k/uL Lymphocytes # (1.0-4.8) k/uL ABG pH (7.35-7.45) ABG pCO2 (35-45) mmHg ABG pO2 (83-108) mmHg ABG HCO3 (21-25) mmol/L ABG Total CO2 (19-24) mmol/L ABG O2 Saturation (94-97) % Sodium (137-145) mmol/L Chloride (98-107) mmol/L Carbon Dioxide (22-30) mmol/L BUN (7-17) mg/dL Glucose (74-99) mg/dL POC Glucose (mg/dL) 130 H 151 H 140 H (75-99) mg/dL AST (14-36) U/L ALT (4-34) U/L 04/11/20 04/11/20 04/11/20 Range/Units 06:22 06:55 06:55 Hgb 8.7 L (11.4-16.0) gm/dL Hct 30.6 L (34.0-46.0) % MCV 77.6 L (80.0-100.0) fL MCH 22.1 L (25.0-35.0) pg MCHC 28.4 L (31.0-37.0) g/dL RDW 16.5 H (11.5-15.5) % Neutrophils # 8.5 H (1.3-7.7) k/uL Lymphocytes # 0.8 L (1.0-4.8) k/uL ABG pH 7.27 L (7.35-7.45) ABG pCO2 81 H* (35-45) mmHg ABG pO2 139 H (83-108) mmHg ABG HCO3 38 H (21-25) mmol/L ABG Total CO2 40 H (19-24) mmol/L ABG O2 Saturation 99.8 H (94-97) % Sodium 152 H (137-145) mmol/L Chloride 112 H (98-107) mmol/L Carbon Dioxide 39 H (22-30) mmol/L BUN 53 H (7-17) mg/dL Glucose 130 H (74-99) mg/dL POC Glucose (mg/dL) (75-99) mg/dL AST 49 H (14-36) U/L ALT 81 H (4-34) U/L 04/11/20 Range/Units 11:33 Hgb (11.4-16.0) gm/dL Hct (34.0-46.0) % MCV (80.0-100.0) fL MCH (25.0-35.0) pg MCHC (31.0-37.0) g/dL RDW (11.5-15.5) % Neutrophils # (1.3-7.7) k/uL Lymphocytes # (1.0-4.8) k/uL ABG pH (7.35-7.45) ABG pCO2 (35-45) mmHg ABG pO2 (83-108) mmHg ABG HCO3 (21-25) mmol/L ABG Total CO2 (19-24) mmol/L ABG O2 Saturation (94-97) % Sodium (137-145) mmol/L Chloride (98-107) mmol/L Carbon Dioxide (22-30) mmol/L BUN (7-17) mg/dL Glucose (74-99) mg/dL POC Glucose (mg/dL) 131 H (75-99) mg/dL AST (14-36) U/L ALT (4-34) U/L Assessment and Plan Assessment: Bilateral patchy groundglass opacities Secondary to pneumonia. Patient possible ARDS Acute hypoxic respiratory failure secondary to pneumonia currently patient is on mechanical ventilator. Status post tracheostomy and PEG placement on 04/11 Bilateral pneumothorax. Status post bilateral chest tube placement. Acute asthma exacerbation hypernatremia Recent history of IV drug abuse, about 2 weeks prior to admission non-Compliance to therapy. The patient left [facility] in [facility] History of ALL currently in remission. History of Anxiety Nicotine dependence, everyday smoker Plan: This is a 29 years old female who presents with bilateral pneumonia and possible ARDS and bilateral pneumothorax status post chest tube. Continue with antibiotic, continue with steroids. Discontinue IV Lasix and continue with D5W. agement. Follow-up recommendation by pulmonary/critical care team R following the case closely. Labs and medication were reviewed.. Continue same treatment. Continue with symptomatic treatment. Resume home medication. Monitor lytes and vitals. DVT and GI prophylaxis. Further recommendationsas per clinical course of the patient DVT prophylaxis: Subcutaneous Lovenox GI Prophylaxis: Pepcid Prognosis is guarded
[2020-04-11] MEDS: CISATRACURIUM 200 MG in SODIUM CHLORIDE 0.9% 180 ML IV SCH (23:28)
[2020-04-11 23:51] LABS: Glucose,Whole Blood 164 mg/dL (75-99)
--- NOTE | 2020-04-11 23:57 | PN ---
PROGRESS NOTE DATE OF SERVICE: 04/11/2020 REASON FOR FOLLOWUP: Pneumonia. INTERVAL HISTORY: The patient is currently afebrile. The patient is hemodynamically stable, not on pressor support. FiO2 is cut down to 35%. No significant purulent secretions through the ET tube or diarrhea reported by nursing staff. The patient also has history. PHYSICAL EXAMINATION: Blood pressure is 131/76, pulse of 109. Temperature 98. She is 99% on 35% FiO2. General description is a middle-aged female lying in bed in no distress. Respiratory system: Unlabored breathing, decreased breath sounds in the base. No wheeze. Heart S1, S2. Regular rate and rhythm. ABDOMEN: Soft, no tenderness. LABS: Hemoglobin 8.4, white count 10.0, BUN of 53, creatinine 0.62. Sputum so far negative. DIAGNOSTIC IMPRESSION AND PLAN: Patient with acute respiratory failure which is multifactorial in this patient who did have a component of pneumonia. The patient is status post tracheostomy and PEG tube placement today. Patient is covered with cefepime to continue and monitor clinical course closely. MMODL / IJN: [id number] /
[2020-04-12] MEDS: INSULIN ASPART (NovoLOG) 100 UNIT/ML VIAL SQ SCH ×4 (00:13→18:18)
[2020-04-12] MEDS: methylPREDNISolone SOD SUCCI 125 MG/2 ML VIAL IV SCH ×4 (00:14→18:30)
[2020-04-12] MEDS: DEXTROSE 5% IN WATER 1,000 ML IV SCH ×3 (03:01→19:50)
[2020-04-12] MEDS: ARTIFICIAL TEARS-HYPROMELLOSE DROPS 15 ML BTL BOTH EYES SCH ×5 (03:21→19:52)
[2020-04-12 03:58] LABS: Anisocytosis Slight; Basophils % (A) 0 %; Eosinophils % (A) 0 %; HCT 30.1 % (34.0-46.0); HGB 8.2 gm/dL (11.4-16.0); Hypochromasia Marked; Lymphocytes # (A) 0.9 k/uL (1.0-4.8); Lymphocytes % (A) 5 %; MCH 21.3 pg (25.0-35.0); MCHC 27.4 g/dL (31.0-37.0); MCV 77.9 fL (80.0-100.0); Mean Platelet Volume 8.7; Microcytosis Slight; Monocytes # (A) 0.5 k/uL (0-1.0); Monocytes % (A) 3 %; Neutrophils # (A) 15.6 k/uL (1.3-7.7); Neutrophils % (A) 91 %; Platelet Count 250 k/uL (150-450); RBC 3.86 m/uL (3.80-5.40); RDW 16.4 % (11.5-15.5); WBC 17.1 k/uL (3.8-10.6)
[2020-04-12 04:09] LABS: ALT 57 U/L (4-34); AST 27 U/L (14-36); African American GFR (CKD) >90 (>60 ml/min/1.73 sqM); Albumin 3.4 g/dL (3.5-5.0); Alkaline Phosphatase 54 U/L (38-126); Blood Urea Nitrogen 48 mg/dL (7-17); Calcium 8.9 mg/dL (8.4-10.2); Chloride 103 mmol/L (98-107); Glucose 158 mg/dL (74-99); Non-African American GFR(CKD) >90 (>60 ml/min/1.73 sqM); Potassium 4.3 mmol/L (3.5-5.1); Sodium 145 mmol/L (137-145); Total Bilirubin 0.4 mg/dL (0.2-1.3); Total Protein 6.6 g/dL (6.3-8.2)
[2020-04-12 04:16] LABS: Anion Gap -1 mmol/L
[2020-04-12 04:35] LABS: Carbon Dioxide 43 mmol/L (22-30)
[2020-04-12 05:02] LABS: ABG Base Excess 15.8 mmol/L; ABG Oxygen Saturation 99.5 % (94-97); ABG PH 7.37 (7.35-7.45); ABG PO2 119 mmHg (83-108); ABG TCO2 43 mmol/L (19-24)
[2020-04-12 05:28] LABS: Allen Test Performed? no
[2020-04-12 06:01] LABS: Glucose,Whole Blood 147 mg/dL (75-99)
[2020-04-12] MEDS: FERROUS SULFATE 325 MG TAB PO SCH ×2 (06:05→16:39)
--- NOTE | 2020-04-12 07:18 | XR ---
EXAMINATION TYPE: XR chest 1V portable DATE OF EXAM: 04/12/2020 COMPARISON: 04/11/2020 HISTORY: SOB, Follow Up FINDINGS: Interval placement of tracheostomy tube which is well-positioned. Bilateral chest tubes are redemonst rated. Bilateral pneumothoraces are unchanged. Stable bilateral infiltrates. Stable appearance of the cardio-mediastinal structures at this time. Pleural effusion unchanged. IMPRESSION: 1. Stable portable chest. Clinical correlation and follow up until resolution is recommended.
[2020-04-12] MEDS: IPRATROPIUM-ALBUTEROL 3 ML NEB INHALATION SCH ×4 (08:15→20:02)
[2020-04-12] MEDS: CEFEPIME 2 GM in SODIUM CHLORIDE 0.9% 100 ML IVPB SCH ×2 (09:05→19:49)
[2020-04-12] MEDS: FAMOTIDINE 20 MG/2 ML VIAL IV SCH ×2 (09:06→19:49)
[2020-04-12] MEDS: acetaZOLAMIDE 250 MG TAB PO SCH (09:06)
[2020-04-12] MEDS: ENOXAPARIN 40 MG/0.4 ML SYRINGE SQ SCH (09:06)
[2020-04-12] MEDS: CHLORHEXIDINE GLUCONATE 15 ML CUP MUCOUS MEM SCH ×2 (09:06→19:49)
[2020-04-12] MEDS: busPIRone HCl 5 MG TAB PO SCH ×2 (09:06→19:59)
--- NOTE | 2020-04-12 10:51 | P.PN ---
Progress Note - Text Progress Note Date: 04/12/20 Patient remains on the ventilator. On exam her tracheostomy site is clean. PEG site is clean. Patient will start PEG tube feedings today. She'll receive supportive care.
[2020-04-12] MEDS: fentaNYL (PF) 2,500 MCG in SODIUM CHLORIDE 0.9% 200 ML IV SCH (11:58)
[2020-04-12] MEDS: NOREPINEPHRINE 32 MG in SODIUM CHLORIDE 0.9% 218 ML IV SCH (12:38)
--- NOTE | 2020-04-12 15:22 | P.PN ---
Subjective Progress Note Date: 04/12/20 Principal diagnosis: Acute hypoxic respiratory failure secondary to bilateral pneumonia and bilateral pneumothoraces. And Underlying severe COPD 04/04/2020 the patient is being seen for a follow-up. The patient is going to undergo bronchoscopy today. I was able to obtain records from the hospital as the [facility] and at that time the patient was hospitalized for rae ateral pneumonia. CAT scan of the chest findings were similar to the ones that he had he [place]. The patient underwent further investigation including alpha-1 antitrypsin level came back within normal, cystic fibrosis mutation screen that came back negative, HIV screen that came back negative, fungal screen including Histoplasma urine antigen, cryptococcal serum antigen and Aspergillus antibodies and all of these were negative. For now, the patient is scheduled to undergo bronchoscopy and bronchial lavage. Echocardiogram showed no evidence of any valvular disease or vegetations. She is still short of breath and she has increased dyspnea cough chest tightness and wheezing. No significant sputum production. On 04/05/2020, the patient is in intensive care unit. Mother the patient underwent a bronchoscopy and bronchial lavage yesterday and the procedure was essentially uncomplicated. Yesterday evening and stretcher and drier hours, the patient became progressively more short of breath, tachypnea, tachycardic and hypoxic. At that point, the emergency team was called and the patient was evaluated twice. During the second evaluation, chest x-ray was done and the patient was found to have diffuse but the pulmonary infiltrates in addition to hypoxic respiratory failure. The patient was started on a BiPAP at a pressure of 12/5 with an FiO2 of 60% and the patient got transferred to the ICU. She was also given a dose of Lasix. She started producing adequate amount of urine output. Nevertheless, she continued to have agonal breathing, low tidal volume and increased tachypnea with impending signs of respiratory failure even while being on a BiPAP. At that point, I made a decision to intubate the patient in intensive care unit. The patient was intubated by #8 orotracheal tube. She was placed on a mechanical ventilator. A triple lumen catheter was established. An outlying catheter was also established. The post intubation blood gas showed a pH of 7.25 with a pCO2 of 87 pO2 of 386 and this was done on assist control mode at the rate of 20 with tidal volume of 350 and FiO2 of 100% with a PEEP of 5. FiO2 is down to 50%. The patient at this point in time is sedated with propofol and the patient is calm and comfortable. Fentanyl was also added to improve for sedation while being a mechanical ventilator. Results of the bronchioloalveolar lavage is still negative. No microbial growth. The patient remains on a combination of IV cefepime and vancomycin. The post intubation chest x-ray showed bilateral pleural thickening and bilateral airspace disease seen although somewhat improved compared to the earlier chest x-rays. ET tube was around 1 cm above the sandra. Blood work from this morning showed a hemoglobin of 7.2. White cell count of 15.8. Aggressive the blood work essentially within normal limits. On 04/06/2020, the patient remains intubated on a mechanical. On today's evaluation the patient is on propofol running at 50 g per KG per minute. The patient is also on fentanyl drip at 3 g per KG per minute. IV fluids at KVO and the patient is on levo fed at 0.1 mg per KG per minute. The patient remains on mechanical ventilator on assist control mode at the rate of 24 with a tidal volume loss was 75 with an FiO2 of 50% and PEEP of 5. Peak airway pressure 37. Plateau airway pressure is 35. Patient is receiving tube feed with vital high protein at the rate of 10 mL an hour and the patient will be advanced to goal. The bronchioloalveolar lavage that was done earlier came back negative for any microbial growth. A chest x-ray from today shows some improvement and by the pulmonary infiltrate that was established on yesterday's chest x-ray. The patient remains on a combination of cefepime and vancomycin. Lasix will be restarted. No other significant events otherwise for now. She is requiring norepinephrine infusion for blood pressure control. Echocardiogram at shown a preserved LV function without any significant LV dysfunction. Triple lumen catheter has been established and have right femoral vein. She also has an arterial line catheter. I was concerned about elevated airway pressures in this patient. Unable to ventilate with a higher volumes as the patient's pressure will go significantly high. I switch this patient to a pressure control mode of ventilation. 04/07/2020, the patient is being seen for follow-up. The patient remains intubated on a mechanical ventilator. The patient is on assist control ventilation and on today's evaluation the patient is on a pressure control of 30 with a PEEP of 5 and FiO2 of 50% with a rate of 34. The blood gases from today showed a pH of 7.47 with a pCO2 of 69 a pO2 of 168 and a follow-up chest x-ray from today showed improvement in the bilateral pulmonary infiltrates. Nevertheless, there was a note of a right-sided pneumothorax. Based on this, a CAT scan of the chest was done to confirm the findings and the patient did have a right-sided pneumothorax there was moderate in size in addition to bilateral diffuse bilateral a disease and small bilateral pleural effusions. At that point, a 24-Danish chest tube was inserted in the right hemithorax and a follow- up chest x-ray is pending for now. The patient remains hemodynamically stable and there was no evidence of any tension due to this pneumothorax. I also did some ventilator changes. I dropped the pressure control down to 20 and dropped a respiratory rate down to 24 and drop the FiO2 down to 40%. A repeat blood gases was done and the repeat blood gases showed a pH of 7.37 with a pCO2 of 89 pO2 of 95. The patient's white cell count of 10.4 with hemoglobin of 7.2. The rest of the blood work and electrodes with a component of metabolic alkalosis with a serum bicarb of 50 and a sodium of 141. The patient remains on broad- spectrum antibiotics. Vancomycin was discontinued as the patient's bronchial alveolar lavage did not reveal any microbial growth and I'm going to keep this patient only on cefepime for now. The patient remains sedated with a combination of fentanyl erythematous events per KG per minute and for prophylaxis for microvascular KG per minute. The patient is also being diuresis with Lasix at a dose of 20 mg IV push every 12 hours. The patient is on vital high protein at the rate of 30 mL an hour. 04/08/2020, the patient remains intubated on a mechanical ventilator. Unfortunately, she continues to have a small right-sided pneumothorax despite a chest tube insertion. The air leak from the right-sided chest tube is minimal at this point in time and output is minimal. The patient is extremely debilitated. 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 She has advanced COPD with chronic lung disease. She is currently on a pressure control mode of ventilation with a pressure control of 20 with an FiO2 of 40% with a PEEP of 5 and the rate of 24. The blood gases showed a pH of 7.43 with a pCO2 of 84 and pO2 of 111. The peak airway pressure 33. The static airway pressure is 27. The patient remains sedated with propofol at the rate of 50 g per KG per minute and fentanyl is running at a rate of 3 g per KG per minute. Norepinephrine is running at 0.02 g per KG per minute. Cultures from the bronchioloalveolar lavage has been negative and the patient is still on cefepime as a broad-spectrum antibiotic coverage for now. She is being diuresed with IV Lasix at a dose of 20 mg IV push every 12 hours. The dose of Lasix will be tapered as the patient has been adequate fluid balance. The chest x-ray findings shows improvement and by the pulmonary infiltrates. There is however a stable loculated right-sided pneumothorax and the right-sided chest tube is in good location. ET tube is in good location. The patient was started on enteral feeding for nutritional support. I'm very much convinced that the patient would benefit from a PEG and trach as the patient has advanced lung disease and she is quite debilitated and malnourished at this young age. On a separate note, earlier this morning the patient went into a bout of an SVT with a heart rate of 160. The patient was given 2 doses o f IV Rocephin, 6 mg and 12 mg without success. Her heart rate gradually is improving at this point in time and over the next few hours, the patient's heart rate dropped down to 112 Reevaluated today on 04/09/20, patient remains intubated and mechanically ventilated. She is on pressure control mode of mechanical ventilation, pressure control is set at 24, inspiratory time is 0.65 seconds patient is on 40% FiO2 and PEEP of 5. She was intubated on 04/05/20, she is on propofol at 50 mcg/kg/m, fentanyl at 3 mcg/kg/h, she is also on norepinephrine at 0.01 mcg/kg/m. IV fluid is at 20 mL per hour. Patient has a right femoral triple- lumen catheter. Right radial arterial line. Right-sided chest tube with air leak noted. And today she ended up with a left-sided chest tube for left-sided pneumothorax which was noted on the chest x-ray earlier today. Patient is on tube feeding vital Hb 53 mL/h and this is the goal is also on cefepime empirically. ABG today showed a pO2 of 148 pCO2 of 74 pH of 7.34. WBC count is 7.6 hemoglobin is 7.8. Electrolytes and renal profile are normal. Bicarb is 39. This morning chest x-ray showed left-sided pneumothorax which is a new hence I went ahead and placed a left sided chest tube 28 Elizabeth chest tube was placed since the patient is on mechanical ventilation. Not much changes noted in the pneumothorax after the chest tube placement Reevaluated today on 04/10/20, patient remains intubated and mechanically ventilated ventilator settings are pressure control set at 26, FiO2 is 35%, PEEP is at 5, inspiratory time is 0.70 and the rate is 24. Patient seems to be doing better today, better and adequate tidal volumes noted, just over 300 mL tidal volumes. Chest x-ray continues to show bilateral pneumothoraces secondary to barotrauma. Chest tubes are both in place. ABG today showed a pO2 of 211 pCO2 of 57 pH of 7.40, hence I cut down the FiO2 to 35%. Both tubes continued to have intermittent leaks. Patient is on fentanyl which I cut down to 1 mcg/kg/h and she is on propofol at 50. IV fluids at KVO, patient is do not feeding at present mostly because she is scheduled to undergo a PEG tube placement and tracheostomy today. CBC is relatively normal except for hemoglobin of 8.1. Electrolytes showed a sodium of 147 bicarb history renal profile is normal Reevaluated today on 04/11/20, patient remains in the ICU, intubated and m echanically ventilated. Patient remains on assist control rate of 30 tidal volume is 250 FiO2 is 40% and PEEP of 5. ABG today showed a pO2 of 139 pCO2 of 81 pH of 7.27. Chest x-ray continues to show bilateral pneumothoraces, not expanding, unchanged. Continues to have 2 bilateral chest tubes. One every hour side. Continues to have some air leak in the right-sided chest tube, and intermittent leak in the left sided chest tube. Patient remains on propofol at 50 mcg/kg/m, she is also on fentanyl at 50 mcg/kg/m, Nimbex at 1 mcg/kg/m, IV fluid is at KVO. Patient is also on enteral feeding. Yesterday the patient was switched from pressure control to assist control mode of mechanical ventilation. And that seems to be working better for the patient today. Gases are actually a bit improving. Patient is scheduled to undergo tracheostomy and PEG tube placement today. CBC showed WBC count of 10 hemoglobin of 8.7 hematocrit of 30.6. Her sodium seems to be high today at 152 hence the patient will be placed on free water via nasogastric tube, and we'll switch her IV fluid to D5W. Will discontinue Lasix. 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 I did cut down the rate down to 26, decrease the flow to 65 L/m, ABG showed a pO2 of 119 pCO2 of 71 pH of 7.37. Patient is on Nimbex, propofol at 50 mcg/kg/m, fentanyl, and her IV fluid is D5W at 100 mL per hour. Patient went off Nimbex earlier today, however she was noted to be more tachypneic, tachycardic, has had to be placed back on Nimbex to adequately ventilate the patient. Portable chest x-ray showed basically no change, continues to have bilateral chest tubes, and her bilateral pneumothoraces are unchanged. Basic metabolic profile today is normal bicarb is 43. Renal profile is normal WBC count is 17.1 hemoglobin is 8.2 hematocrit is 30.1. Objective - Vital Signs Vital signs: Vital Signs Temp 98.0 F 04/12/20 08:00 Pulse 125 H 04/12/20 15:00 Resp 26 H 04/12/20 15:00 BP 99/58 04/12/20 05:30 Pulse Ox 95 04/12/20 15:00 Intake & Output 04/11/20 04/12/20 04/12/20 18:59 06:59 18:59 Intake Total 026.782 5947.248 1184.286 Output Total 1257 890 725 Balance -392.939 973.248 459.286 Weight 40 kg 43 kg Intake: IV 516 1339 721 Dextrose 5% in Water 1, 300 1300 700 000 ml @ 100 mls/hr IV . Q10H [facility] Rx#:[id number] Pressure bag 36 39 21 Sodium Chloride 0.9% 1, 180 000 ml @ 20 mls/hr IV . Q24H [facility] Rx#:[id number] Intake, IV Titration 348.061 524.248 383.286 Amount Cisatracurium 200 mg In 42.016 126.048 100.646 Sodium Chloride 0.9% 180 ml @ 1 MCG/KG/MIN 3.12 mls/hr IV .Q24H [facility] Rx#: [id number] Lactated Ringers 1,000 ml 80 @ 20 mls/hr IV .Q24H [facility] Rx#:[id number] fentaNYL (PF) 2,500 mcg 250 211.64 In Sodium Chloride 0.9% 200 ml @ Per Protocol IV .Q0M [facility] Rx#:[id number] propofoL 1,000 mg In 226.045 148.2 71 Empty Bag 1 bag @ Titrate IV .Q0M [facility] Rx#: [id number] Tube Feeding 50 Other 30 Output: Chest Tube Drainage 5 Chest Tube Left 5 Chest Tube Right 0 Urine 1255 885 725 Estimated Blood Loss 2 Other: Voiding Method Indwelling Catheter Indwelling Catheter Indwelling Catheter ABP, PAP, CO, CI - Last Documented Arterial Blood Pressure 131/59 - Exam atient thinking cachectic female patient, she looks quite emaciated. She has multiple tattoos. Intubated and mechanically ventilated. Head atraumatic, normocephalic. HEENT: PERRLA, EOMI, neck, no neck masses, no JVD, no stridor.. CHEST EXAMINATION: Trachea is central. Symmetrical expansion.bilateral diminished air entry and wheezing. CARDIAC: Normal S1, S2 with no gallops. No murmurs ABDOMEN: Soft. Bowel sounds normal. No organomegaly. No abdominal bruits. Extremities: reveal no edema. No clubbing or cyanosis Neurologically sedated, opens eyes to painful stimuli, could not be fully assessed. Skin: No rash or skin lesions. Psychiatric: Could not assess. Patient is sedated Musculoskeletal: Significant muscle wasting noted bilaterally and the patient is extremely frail - Labs CBC & Chem 7: 04/12/20 03:40 04/12/20 03:40 Labs: Abnormal Lab Results - Last 24 Hours (Table) 04/11/20 04/11/20 04/12/20 Range/Units 17:31 23:50 03:40 WBC (3.8-10.6) k/uL Hgb (11.4-16.0) gm/dL Hct (34.0-46.0) % MCV (80.0-100.0) fL MCH (25.0-35.0) pg MCHC (31.0-37.0) g/dL RDW (11.5-15.5) % Neutrophils # (1.3-7.7) k/uL Lymphocytes # (1.0-4.8) k/uL ABG pCO2 (35-45) mmHg ABG pO2 (83-108) mmHg ABG HCO3 (21-25) mmol/L ABG Total CO2 (19-24) mmol/L ABG O2 Saturation (94-97) % Carbon Dioxide 43 H* (22-30) mmol/L BUN 48 H (7-17) mg/dL Glucose 158 H (74-99) mg/dL POC Glucose (mg/dL) 160 H 164 H (75-99) mg/dL ALT 57 H (4-34) U/L Albumin 3.4 L (3.5-5.0) g/dL 04/12/20 04/12/20 04/12/20 Range/Units 03:40 05:00 05:59 WBC 17.1 H (3.8-10.6) k/uL Hgb 8.2 L (11.4-16.0) gm/dL Hct 30.1 L (34.0-46.0) % MCV 77.9 L (80.0-100.0) fL MCH 21.3 L (25.0-35.0) pg MCHC 27.4 L (31.0-37.0) g/dL RDW 16.4 H (11.5-15.5) % Neutrophils # 15.6 H (1.3-7.7) k/uL Lymphocytes # 0.9 L (1.0-4.8) k/uL ABG pCO2 71 H* (35-45) mmHg ABG pO2 119 H (83-108) mmHg ABG HCO3 41 H* (21-25) mmol/L ABG Total CO2 43 H (19-24) mmol/L ABG O2 Saturation 99.5 H (94-97) % Carbon Dioxide (22-30) mmol/L BUN (7-17) mg/dL Glucose (74-99) mg/dL POC Glucose (mg/dL) 147 H (75-99) mg/dL ALT (4-34) U/L Albumin (3.5-5.0) g/dL Assessment and Plan Assessment: Impression: Acute hypoxic respiratory failure with bilateral infiltrates, improving Acute exacerbation of COPD. Bilateral pneumothoraces secondary to barotrauma. Status post placement of a left and right-sided chest tubes for bilateral pneumothoraces. History of IV drug abuse. History of seizure disorder. Generalized anxiety disorder. Remote history of acute lymphocytic leukemia, in remission. Severe malnutrition, BMI is 20.3, this is protein calorie malnutrition, severe in nature. Chronic hypercapnic respiratory failure with metabolic compensation. Hypernatremia with free water deficit, improving with free water given. Status post tracheostomy and PEG tube placement on 04/11/20. Recommendation: Continue present supportive care measures. Continue ventilatory support. Minimal changes noted on the vent today including changing the flow and cutting down the rate. Continue nutritional support. Continue antibiotics. Continue bronchodilators and IV Solu-Medrol. Not ready for any form of weaning. Start using PEG tube today/enteral feeding. Continue Nimbex, fentanyl, and propofol. Patient did not tolerate being off Nimbex, to be placed back on Nimbex today. Continue GI and DVT prophylaxis. Continue D5W. Continue to hold Lasix. Prognosis is poor, Critical care time is over 30 Time with Patient: Greater than 30
[2020-04-12 18:16] LABS: Glucose,Whole Blood 117 mg/dL (75-99)
[2020-04-12] MEDS: CISATRACURIUM 200 MG in SODIUM CHLORIDE 0.9% 180 ML IV SCH (19:58)
--- NOTE | 2020-04-12 22:44 | P.PN ---
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 Patient does have history of IV drug abuse and stopped using approximately 2 weeks ago. Patient was seen at outside hospital in [place] for difficulty in breathing. Patient left AGAINST MEDICAL ADVICE. Patient came to [place] to see her family and has been having worsening symptoms again with cough and dyspnea. Chest x-ray showed diffuse bilateral pleural parenchymal changes.Coronavirus PCR and influenza A and B negative.CT angiogram showed no evidence of pulmonary embolism. Patient is status post bronchoscopy with bronchial lavage on 04/04. Patient eventually need intubation and placed on mechanical ventilation for worsening respiratory failure. Her hospital course was complicated by right pneumothorax and chest tube was placed by surgery team. Today she developed left-sided pneumothorax with another chest tube was placed. Patient remains on broad-spectrum antibiotics with cefepime , she was on IV vancomycin which is a stopped now. Also she is on small doses of IV Lasix 20 mg daily and salmeterol 60 mg. Surgery team were consulted for PEG tube and tracheostomy placement 04/10/2020 Patient remains in the ICU for COPD and pneumonia, his currently on cefepime and IV Solu-Medrol. He is intubated on mechanical ventilation was managed closely by pulmonary/critical care team. As per the pulmonary team patient is doing better today. His hospital course is complicated by bilateral pneumothoraces status post bilateral chest tube. Also patient is undergoing PEG tube and tracheostomy placement Also patient is still tachycardic and tachypneic. Also patient is on Lasix 20 mg twice daily, was once daily yesterday 04/11/2020 Patient remains in the ICU on mechanical ventilation and looks patient is doing better with her oxygenation and depressed ventilation with pulmonary/critical care team followed closely. She still has bilateral chest tubes for bilateral pneumothoraces Patient underwent PEG tube placement and tracheostomy placement by surgery team Her sodium was trending up to 152, D5 W was started and Lasix was stopped. 04/12/2020 Patient remains in the ICU, on mechanical ventilation with pulmonary/critical care team on the case. Patient was tachycardic and tachypneic and she had to be placed back on the buttocks however generally there is normal change in her clinical condition. She still needs bilateral chest tubes for bilateral pneumothoraces. She status post PEG tube and tracheostomy by surgery team She remains on cefepime Solu-Medrol Review of systems: N/a Active Medications Generic Name Dose Route Start Last Admin Trade Name Freq PRN Reason Stop Dose Admin Acetaminophen 650 mg 04/03/20 13:35 04/03/20 16:14 Acetaminophen Tab 325 Mg Tab PO 650 mg Q6HR PRN Administration Fever and/ or Pain Albuterol/Ipratropium 3 ml 04/02/20 17:41 04/04/20 02:02 Ipratropium-Albuterol 3 Ml Neb INHALATION 3 ml RT-Q4H PRN Administration Shortness Of Breath Or Wheezing Albuterol/Ipratropium 3 ml 04/02/20 20:00 04/12/20 20:02 Ipratropium-Albuterol 3 Ml Neb INHALATION 3 ml RT-QID CRISTHIAN Administration Artificial Tears 1 drops 04/12/20 04:00 04/12/20 19:52 Artificial Tears-Hypromellose Drops 15 Ml Btl BOTH EYES 1 drops Q4H CRISTHIAN Administration Buspirone HCl 7.5 mg 04/04/20 21:00 04/12/20 19:59 Buspirone Hcl 5 Mg Tab PO 7.5 mg BID CRISTHIAN Administration Chlorhexidine Gluconate 15 ml 04/05/20 21:00 04/12/20 19:49 Chlorhexidine Gluconate 15 Ml Cup MUCOUS MEM 15 ml BID CRISTHIAN Administration Enoxaparin Sodium 40 mg 04/03/20 09:00 04/12/20 09:06 Enoxaparin 40 Mg/0.4 Ml Syringe SQ 40 mg DAILY CRISTHIAN Administration Famotidine 20 mg 04/09/20 21:00 04/12/20 19:49 Famotidine 20 Mg/2 Ml Vial IV 20 mg Q12HR CRISTHIAN Administration Ferrous Sulfate 325 mg 04/05/20 07:30 04/12/20 16:39 Ferrous Sulfate 325 Mg Tab PO Not Given BID-W/MEALS CRISTHIAN Guaifenesin/Codeine Phosphate 10 ml 04/03/20 15:09 04/04/20 01:57 Guaifenesin-Coden 100-10mg/5ml 10 Ml Cup PO 10 ml Q6H PRN Administration Cough Cefepime HCl 2 gm/ Sodium 100 mls @ 25 mls/hr 04/03/20 10:30 04/12/20 19:49 Chloride IVPB 25 mls/hr Q12HR CRISTHIAN Administration Propofol 1,000 mg/ IV Solution 100 mls @ 0 mls/hr 04/05/20 10:45 04/12/20 18:30 IV 50 mcg/kg/min .Q0M CRISTHIAN 12 mls/hr Administration Protocol Titrate Norepinephrine Bitartrate 32 250 mls @ 1.23 mls/hr 04/05/20 11:15 04/12/20 12:38 mg/ Sodium Chloride IV Not Given .Q24H CRISTHIAN Protocol 0.05 MCG/KG/MIN Fentanyl Citrate 2,500 mcg/ 250 mls @ 0 mls/hr 04/09/20 15:00 04/12/20 11:58 Sodium Chloride IV 3 mcg/kg/hr .Q0M CRISTHIAN 15.6 mls/hr Administration Protocol Per Protocol Cisatracurium Besylate 200 mg/ 200 mls @ 3.12 mls/hr 04/10/20 22:30 04/12/20 19:58 Sodium Chloride IV 3 mcg/kg/min .Q24H CRISTHIAN 9.36 mls/hr Administration Protocol 1 MCG/KG/MIN Dextrose/Water 1,000 mls @ 100 mls/hr 04/11/20 15:45 04/12/20 19:50 Dextrose 5%-Water Iv Soln IV 100 mls/hr .Q10H CRISTHIAN Administration Insulin Aspart 0 unit 04/05/20 18:00 04/12/20 18:18 Insulin Aspart (Novolog) 100 Unit/Ml Vial SQ Not Given Q6H [facility] Protocol Lorazepam 1 mg 04/05/20 06:21 04/08/20 08:51 Lorazepam 2 Mg/Ml Inj IV 1 mg Q4HR PRN Administration Anxiety Methylprednisolone Sodium Succinate 60 mg 04/02/20 18:30 04/12/20 18:30 Methylprednisolone Sod Succi 125 Mg/2 Ml Vial IV 60 mg Q6HR CRISTHIAN Administration Ondansetron HCl 4 mg 04/03/20 15:08 04/03/20 16:14 Ondansetron 4 Mg/2 Ml Vial IVP 4 mg Q6HR PRN Administration Nausea And Vomiting Objective - Vital Signs Vital signs: Vital Signs Temp 98.8 F 04/12/20 20:00 Pulse 104 H 04/12/20 21:00 Resp 17 04/12/20 21:00 BP 106/57 04/12/20 15:30 Pulse Ox 97 04/12/20 21:00 Intake & Output 04/12/20 04/12/20 04/13/20 06:59 18:59 06:59 Intake Total 0311.507 5697.510 582.98 Output Total 890 1150 445 Balance 973.248 618.510 137.98 Weight 43 kg Intake: IV 1339 1133 412 Dextrose 5% in Water 1, 1300 1100 400 000 ml @ 100 mls/hr IV . Q10H CRISTHIAN Rx#:[id number] Pressure bag 39 33 12 Intake, IV Titration 524.248 485.510 31.98 Amount Cisatracurium 200 mg In 126.048 132.470 31.98 Sodium Chloride 0.9% 180 ml @ 1 MCG/KG/MIN 3.12 mls/hr IV .Q24H CRISTHIAN Rx#: [id number] fentaNYL (PF) 2,500 mcg 250 211.64 In Sodium Chloride 0.9% 200 ml @ Per Protocol IV .Q0M CRISTHIAN Rx#:[id number] propofoL 1,000 mg In 148.2 141.4 Empty Bag 1 bag @ Titrate IV .Q0M CRISTHIAN Rx#: [id number] Tube Feeding 90 109 Other 60 30 Output: Chest Tube Drainage 5 Chest Tube Left 5 Chest Tube Right 0 Urine 885 1150 445 Other: Voiding Method Indwelling Catheter Indwelling Catheter Indwelling Catheter ABP, PAP, CO, CI - Last Documented Arterial Blood Pressure 105/61 - Exam -GENERAL: The patient is intubated and sedated HEENT: Pupils are round and equally reacting to light. EOMI. No scleral icterus. No conjunctival pallor. Normocephalic, atraumatic. No pharyngeal erythema. No thyromegaly. CARDIOVASCULAR: S1 and S2 present. No murmurs, rubs, or gallops. -PULMONARY: Chest is clear to auscultation, no wheezing or crackles. Bilateral chest tube placement ABDOMEN: Soft, nontender, nondistended, normoactive bowel sounds. No palpable organomegaly. MUSCULOSKELETAL: No joint swelling or deformity. EXTREMITIES: No cyanosis, clubbing, or pedal edema. NEUROLOGICAL: Gross neurological examination did not reveal any focal deficits. SKIN: No rashes. no petechiae. - Labs CBC & Chem 7: 04/12/20 03:40 04/12/20 03:40 Labs: Abnormal Lab Results - Last 24 Hours (Table) 04/11/20 04/12/20 04/12/20 Range/Units 23:50 03:40 03:40 WBC 17.1 H (3.8-10.6) k/uL Hgb 8.2 L (11.4-16.0) gm/dL Hct 30.1 L (34.0-46.0) % MCV 77.9 L (80.0-100.0) fL MCH 21.3 L (25.0-35.0) pg MCHC 27.4 L (31.0-37.0) g/dL RDW 16.4 H (11.5-15.5) % Neutrophils # 15.6 H (1.3-7.7) k/uL Lymphocytes # 0.9 L (1.0-4.8) k/uL ABG pCO2 (35-45) mmHg ABG pO2 (83-108) mmHg ABG HCO3 (21-25) mmol/L ABG Total CO2 (19-24) mmol/L ABG O2 Saturation (94-97) % Carbon Dioxide 43 H* (22-30) mmol/L BUN 48 H (7-17) mg/dL Glucose 158 H (74-99) mg/dL POC Glucose (mg/dL) 164 H (75-99) mg/dL ALT 57 H (4-34) U/L Albumin 3.4 L (3.5-5.0) g/dL 04/12/20 04/12/20 04/12/20 Range/Units 05:00 05:59 18:14 WBC (3.8-10.6) k/uL Hgb (11.4-16.0) gm/dL Hct (34.0-46.0) % MCV (80.0-100.0) fL MCH (25.0-35.0) pg MCHC (31.0-37.0) g/dL RDW (11.5-15.5) % Neutrophils # (1.3-7.7) k/uL Lymphocytes # (1.0-4.8) k/uL ABG pCO2 71 H* (35-45) mmHg ABG pO2 119 H (83-108) mmHg ABG HCO3 41 H* (21-25) mmol/L ABG Total CO2 43 H (19-24) mmol/L ABG O2 Saturation 99.5 H (94-97) % Carbon Dioxide (22-30) mmol/L BUN (7-17) mg/dL Glucose (74-99) mg/dL POC Glucose (mg/dL) 147 H 117 H (75-99) mg/dL ALT (4-34) U/L Albumin (3.5-5.0) g/dL Assessment and Plan Assessment: Bilateral patchy groundglass opacities Secondary to pneumonia. Patient possible ARDS Acute hypoxic respiratory failure secondary to pneumonia currently patient is on mechanical ventilator. Status post tracheostomy and PEG placement on 04/11 Bilateral pneumothorax. Status post bilateral chest tube placement. Acute asthma exacerbation hypernatremia Recent history of IV drug abuse, about 2 weeks prior to admission non-Compliance to therapy. The patient left [facility] in [facility] History of ALL currently in remission. History of Anxiety Nicotine dependence, everyday smoker Plan: This is a 29 years old female who presents with bilateral pneumonia and possible ARDS and bilateral pneumothorax status post chest tube. Continue with an tibiotic, continue with steroids. Discontinue IV Lasix and continue with D5W. agement. Follow-up recommendation by pulmonary/critical care team R following the case closely. Labs and medication were reviewed.. Continue same treatment. Continue with symptomatic treatment. Resume home medication. Monitor lytes and vitals. DVT and GI prophylaxis. Further recommendationsas per clinical course of the patient DVT prophylaxis: Subcutaneous Lovenox GI Prophylaxis: Pepcid Prognosis is guarded
[2020-04-12 23:59] LABS: Glucose,Whole Blood 193 mg/dL (75-99)
[2020-04-13] MEDS: INSULIN ASPART (NovoLOG) 100 UNIT/ML VIAL SQ SCH ×5 (00:01→23:39)
[2020-04-13] MEDS: methylPREDNISolone SOD SUCCI 125 MG/2 ML VIAL IV SCH ×5 (00:01→23:22)
[2020-04-13] MEDS: ARTIFICIAL TEARS-HYPROMELLOSE DROPS 15 ML BTL BOTH EYES SCH ×7 (00:01→23:34)
[2020-04-13 03:46] LABS: ALT 50 U/L (4-34); AST 29 U/L (14-36); African American GFR (CKD) >90 (>60 ml/min/1.73 sqM); Albumin 3.2 g/dL (3.5-5.0); Alkaline Phosphatase 52 U/L (38-126); Blood Urea Nitrogen 32 mg/dL (7-17); Calcium 8.6 mg/dL (8.4-10.2); Chloride 99 mmol/L (98-107); Glucose 198 mg/dL (74-99); Non-African American GFR(CKD) >90 (>60 ml/min/1.73 sqM); Potassium 4.2 mmol/L (3.5-5.1); Sodium 140 mmol/L (137-145); Total Bilirubin 0.4 mg/dL (0.2-1.3); Total Protein 6.3 g/dL (6.3-8.2)
[2020-04-13] MEDS: fentaNYL (PF) 2,500 MCG in SODIUM CHLORIDE 0.9% 200 ML IV SCH ×2 (03:49→17:11)
[2020-04-13 03:52] LABS: Anisocytosis Slight; Basophils # (A) 0.1 k/uL (0-0.2); Basophils % (A) 0 %; Eosinophils % (A) 0 %; HCT 29.4 % (34.0-46.0); HGB 8.2 gm/dL (11.4-16.0); Hypochromasia Marked; Lymphocytes # (A) 0.7 k/uL (1.0-4.8); Lymphocytes % (A) 4 %; MCH 21.7 pg (25.0-35.0); MCHC 27.9 g/dL (31.0-37.0); MCV 77.8 fL (80.0-100.0); Mean Platelet Volume 7.3; Microcytosis Slight; Monocytes # (A) 0.4 k/uL (0-1.0); Monocytes % (A) 2 %; Neutrophils # (A) 16.9 k/uL (1.3-7.7); Neutrophils % (A) 93 %; Platelet Count 185 k/uL (150-450); RBC 3.77 m/uL (3.80-5.40); RDW 16.4 % (11.5-15.5); WBC 18.1 k/uL (3.8-10.6)
[2020-04-13 03:53] LABS: Anion Gap 3 mmol/L; Carbon Dioxide 38 mmol/L (22-30)
--- NOTE | 2020-04-13 05:36 | PN ---
PROGRESS NOTE DATE OF SERVICE: 04/12/2020 REASON FOR FOLLOWUP: Pneumonia. INTERVAL HISTORY: The patient is currently afebrile. The patient is hemodynamically stable. The patient's FiO2 is stable. No vomiting, diarrhea or any other changes reported by the nursing staff. PHYSICAL EXAMINATION: Blood pressure 105/61 with a pulse of 104, temperature 98. She is 97% on 40% FiO2. General description is a middle-aged female lying in bed in no distress. RESPIRATORY SYSTEM: Unlabored breathing, decreased breath sounds in the bases, no wheeze. HEART: S1, S2. Regular rate and rhythm. ABDOMEN: Soft, no tenderness. LABS: Hemoglobin 8.2, white count 17.1, BUN of 48, creatinine 0.52. Electrolytes have been normal. DIAGNOSTIC IMPRESSION AND PLAN: Patient with acute respiratory failure which is multifactorial with possible component of pneumonia. Patient is currently covered with cefepime. Sputum has been pathogen. Did have slight worsening white count could be related to steroids, hence, will monitor clinical course closely. Continue with supportive care. MMODL / IJN: [id number] /
[2020-04-13 05:49] LABS: Glucose,Whole Blood 197 mg/dL (75-99)
[2020-04-13] MEDS: SODIUM CHLORIDE 0.9% 1,000 ML IV SCH ×2 (06:11→17:11)
[2020-04-13 06:14] LABS: ABG HCO3 38 mmol/L (21-25); ABG Oxygen Saturation 98.5 % (94-97); ABG PH 7.23 (7.35-7.45); ABG PO2 105 mmHg (83-108); ABG TCO2 40 mmol/L (19-24)
[2020-04-13] MEDS: FERROUS SULFATE 325 MG TAB PO SCH ×2 (06:15→17:10)
[2020-04-13 06:35] LABS: Allen Test Performed? no
[2020-04-13] MEDS: IPRATROPIUM-ALBUTEROL 3 ML NEB INHALATION SCH ×4 (08:09→20:02)
[2020-04-13 08:13] LABS: ABG HCO3 41 mmol/L (21-25); ABG PCO2 71 mmHg (35-45)
[2020-04-13] MEDS: ENOXAPARIN 40 MG/0.4 ML SYRINGE SQ SCH (08:43)
[2020-04-13] MEDS: CEFEPIME 2 GM in SODIUM CHLORIDE 0.9% 100 ML IVPB SCH ×2 (08:43→20:03)
[2020-04-13] MEDS: FAMOTIDINE 20 MG/2 ML VIAL IV SCH ×2 (08:43→20:02)
[2020-04-13] MEDS: CHLORHEXIDINE GLUCONATE 15 ML CUP MUCOUS MEM SCH ×2 (08:44→20:04)
[2020-04-13] MEDS: busPIRone HCl 5 MG TAB PO SCH ×2 (08:48→20:05)
--- NOTE | 2020-04-13 09:03 | XR ---
EXAMINATION TYPE: XR chest 1V portable DATE OF EXAM: 04/13/2020 COMPARISON: 04/12/2020 INDICATION: Bilateral pneumothoraces TECHNIQUE: Single frontal view of the chest is obtained. FINDINGS: The heart size is normal. The pulmonary vasculature is normal. There is a right-sided lateral pneumothorax may have subtle increase in size over the interval. Right -sided chest tube remains in position. A small left apical pneumothorax is present which appears stab le from comparison. Left chest tube remains in position Tracheostomy tube is in the midline with the tip above the sandra. Mild infiltrate may be at the left base. There is increased density at the left lung apex. Bilateral lung apical thickening may be pres ent. IMPRESSION: 1. Bilateral pneumothorax. Right-sided may be similar or subtly increased over the interval. 2 additi onal lines and catheters discussed above. 2. Mild bilateral infiltrates
[2020-04-13] MEDS: NOREPINEPHRINE 32 MG in SODIUM CHLORIDE 0.9% 218 ML IV SCH (11:01)
[2020-04-13 11:17] LABS: Glucose,Whole Blood 122 mg/dL (75-99)
--- NOTE | 2020-04-13 12:01 | P.PN ---
Progress Note - Text Progress Note Date: 04/13/20 The patient remained stable in the ICU. Trach site is clean. Patient is tolerating tube feeds. She will continue receive supportive care.
--- NOTE | 2020-04-13 13:00 | P.GSCN ---
<Mauro García - Last Filed: 04/13/20 11:50> History of Present Illness Consult date: 04/13/20 Reason for Consult: Bilateral pneumothorax. Requesting physician: Sandie Jimenez History of present illness: This is a 29-year-old female patient who does not follow with a primary care doctor on a regular basis. The patient is currently sedated and intubated with mechanical ventilator support and her history has been obtained from the chart and her bedside nurse. 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 She presented to the emergency department here at [facility] on 04/02/2020 with complaints of chest pain, dyspnea and cough, congestion, and wheezing. According to her chart she was in [place] and hospitalized for an infection in her lungs and a collapsed lung in [place]. During that hospitalization she left AGAINST M EDICAL ADVICE and traveled to [place] to be closer with family. In the emergency department a chest x-ray was completed which showed diffuse bilateral pulmonary infiltrates, bilateral pleural parenchymal changes and areas of consolidation. For further evaluation a CTA of the chest was completed which demonstrated no evidence of pulmonary embolism, bilateral moderate patchy groundglass bases, concerning for COVID pneumonia, background of mixed chronic interstitial and emphysematous disease and a 1.2 cm right upper lobe nodule. Initial laboratory results showed a WBC count of 9.0, hemoglobin 9.0, platelets 460, BUN 18, creatinine 0.58, troponins less than 0.012, COVID 19, influenza type A and influenza type B or not detected. Subsequently due to her presenting symptoms she was admitted for further evaluation and treatment. Subsequently the patient developed some acute respiratory distress requiring intubation with mechanical ventilator support. On 04/07/2020 her chest x-ray showed a new right-sided pneumothorax around 10-15%, with a follow-up computed tomography scan of her chest completed which confirmed a persistent moderate to large right sided pneumothorax. Subsequently a right-sided chest tube was inserted by Dr. Merritt from pulmonary critical care medicine. On 04/09/2020 the patient developed a left-sided pneumothorax and subsequently a left-sided chest tube was placed by Dr. Jimenez from pulmonary critical care medicine. Despite having the chest tubes in place her chest x-ray continues to show a right-sided pneumo thorax. Due to the persistent right-sided pneumothorax a consult was placed to Dr. Vicente Hernandez from cardiothoracic surgery for further evaluation and treatment recommendations. Review of Systems A 14 point review of systems could not be completed as the patient remains sedated, intubated on mechanical ventilator support. 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, COPD/Asthma, IVDA (heroin and metamphetamine) History of Any Multi-Drug Resistant Organisms: None Reported Past Surgical History: No Surgical Hx Reported Additional Past Surgical History / Comment(s): Bone marrow biopsies, port placement x2 2006, 2008 Past Anesthesia/Blood Transfusion Reactions: No Reported Reaction Smoking Status: Current every day smoker - Past Family History Mother Family Medical History: No Reported History Medications and Allergies Home Medications Medication Instructions Recorded Confirmed Type No Known Home Medications 04/02/20 04/02/20 History Allergies Allergy/AdvReac Type Severity Reaction Status Date / Time alprazolam [From Xanax] Allergy Itching Verified 04/04/20 19:35 asparaginase Allergy Rash/Hives Verified 04/02/20 18:55 bee venom protein (honey bee) Allergy Unknown Verified 04/02/20 18:55 Coconut Allergy Anaphylaxis Verified 04/02/20 18:55 Iodinated Contrast Media Allergy Anaphylaxis Verified 04/02/20 18:55 meperidine HCl [From Demerol] Allergy Anaphylaxis Verified 04/02/20 18:55 Penicillins Allergy Swelling Verified 04/02/20 18:55 Surgical - Exam Vital Signs Temp Pulse Resp BP Pulse Ox 97.4 F L 135 H 24 101/60 88 L 04/02/20 13:04 04/02/20 13:04 04/02/20 13:04 04/02/20 13:04 04/02/20 13:04 - General Currently sedated, intubated on mechanical and is on mechanical ventilator support. no distress, cachectic - Eyes PERRL, no icteric - ENT poor correction - Neck no masses, no bruits, trachea midline, no venous distension - Respiratory Lung sounds with scattered expiratory wheezes and diminished throughout. Respirations are symmetrical with mechanical ventilator support. - Cardiovascular Regular rhythm and tachycardic rate. S1 and S2 present, negative for S3, gallop or murmur. No edema present. Knee-high sequential compression devices in place her bilateral lower extremities. - Abdomen Abdomen is soft, nontender and nondistended. Active bowel sounds present in all 4 abdominal quadrants. No organomegaly. - Genitourinary Ac catheter for accurate I&O. - Rectum Deferred - Integumentary Multiple tattoos. no rash, no growths, no abnormal pigmentation - Neurologic Unable to evaluate at this time as the patient is sedated. - Musculoskeletal Unable to assess at this time as the patient is sedated. - Psychiatric Unable to assess at this time as the patient is sedated Results - Labs 04/13/20 03:25 04/13/20 03:25 Abnormal Lab Results - Last 24 Hours (Table) 04/12/20 04/12/20 04/12/20 Range/Units 05:00 18:14 23:58 WBC (3.8-10.6) k/uL RBC (3.80-5.40) m/uL Hgb (11.4-16.0) gm/dL Hct (34.0-46.0) % MCV (80.0-100.0) fL MCH (25.0-35.0) pg MCHC (31.0-37.0) g/dL RDW (11.5-15.5) % Neutrophils # (1.3-7.7) k/uL Lymphocytes # (1.0-4.8) k/uL ABG pH (7.35-7.45) ABG pCO2 71 H* (35-45) mmHg ABG HCO3 41 H* (21-25) mmol/L ABG Total CO2 (19-24) mmol/L ABG O2 Saturation (94-97) % Carbon Dioxide (22-30) mmol/L BUN (7-17) mg/dL Glucose (74-99) mg/dL POC Glucose (mg/dL) 117 H 193 H (75-99) mg/dL ALT (4-34) U/L Albumin (3.5-5.0) g/dL 04/13/20 04/13/20 04/13/20 Range/Units 03:25 03:25 05:47 WBC 18.1 H (3.8-10.6) k/uL RBC 3.77 L (3.80-5.40) m/uL Hgb 8.2 L (11.4-16.0) gm/dL Hct 29.4 L (34.0-46.0) % MCV 77.8 L (80.0-100.0) fL MCH 21.7 L (25.0-35.0) pg MCHC 27.9 L (31.0-37.0) g/dL RDW 16.4 H (11.5-15.5) % Neutrophils # 16.9 H (1.3-7.7) k/uL Lymphocytes # 0.7 L (1.0-4.8) k/uL ABG pH (7.35-7.45) ABG pCO2 (35-45) mmHg ABG HCO3 (21-25) mmol/L ABG Total CO2 (19-24) mmol/L ABG O2 Saturation (94-97) % Carbon Dioxide 38 H (22-30) mmol/L BUN 32 H (7-17) mg/dL Glucose 198 H (74-99) mg/dL POC Glucose (mg/dL) 197 H (75-99) mg/dL ALT 50 H (4-34) U/L Albumin 3.2 L (3.5-5.0) g/dL 04/13/20 04/13/20 Range/Units 06:11 11:15 WBC (3.8-10.6) k/uL RBC (3.80-5.40) m/uL Hgb (11.4-16.0) gm/dL Hct (34.0-46.0) % MCV (80.0-100.0) fL MCH (25.0-35.0) pg MCHC (31.0-37.0) g/dL RDW (11.5-15.5) % Neutrophils # (1.3-7.7) k/uL Lymphocytes # (1.0-4.8) k/uL ABG pH 7.23 L (7.35-7.45) ABG pCO2 89 H* (35-45) mmHg ABG HCO3 38 H (21-25) mmol/L ABG Total CO2 40 H (19-24) mmol/L ABG O2 Saturation 98.5 H (94-97) % Carbon Dioxide (22-30) mmol/L BUN (7-17) mg/dL Glucose (74-99) mg/dL POC Glucose (mg/dL) 122 H (75-99) mg/dL ALT (4-34) U/L Albumin (3.5-5.0) g/dL Diabetes panel 04/13/20 Range/Units 03:25 Sodium 140 (137-145) mmol/L Potassium 4.2 (3.5-5.1) mmol/L Chloride 99 (98-107) mmol/L Carbon Dioxide 38 H (22-30) mmol/L BUN 32 H (7-17) mg/dL Creatinine 0.55 (0.52-1.04) mg/dL Glucose 198 H (74-99) mg/dL Calcium 8.6 (8.4-10.2) mg/dL AST 29 (14-36) U/L ALT 50 H (4-34) U/L Alkaline Phosphatase 52 (38-126) U/L Total Protein 6.3 (6.3-8.2) g/dL Albumin 3.2 L (3.5-5.0) g/dL Calcium panel 04/13/20 Range/Units 03:25 Calcium 8.6 (8.4-10.2) mg/dL Albumin 3.2 L (3.5-5.0) g/dL Pituitary panel 04/13/20 Range/Units 03:25 Sodium 140 (137-145) mmol/L Potassium 4.2 (3.5-5.1) mmol/L Chloride 99 (98-107) mmol/L Carbon Dioxide 38 H (22-30) mmol/L BUN 32 H (7-17) mg/dL Creatinine 0.55 (0.52-1.04) mg/dL Glucose 198 H (74-99) mg/dL Calcium 8.6 (8.4-10.2) mg/dL Adrenal panel 04/13/20 Range/Units 03:25 Sodium 140 (137-145) mmol/L Potassium 4.2 (3.5-5.1) mmol/L Chloride 99 (98-107) mmol/L Carbon Dioxide 38 H (22-30) mmol/L BUN 32 H (7-17) mg/dL Creatinine 0.55 (0.52-1.04) mg/dL Glucose 198 H (74-99) mg/dL Calcium 8.6 (8.4-10.2) mg/dL Total Bilirubin 0.4 (0.2-1.3) mg/dL AST 29 (14-36) U/L ALT 50 H (4-34) U/L Alkaline Phosphatase 52 (38-126) U/L Total Protein 6.3 (6.3-8.2) g/dL Albumin 3.2 L (3.5-5.0) g/dL - Imaging Chest x-ray: report reviewed, image reviewed Assessment and Plan Assessment: 1. Bilateral pneumothoraces, secondary to barotrauma, status post right and left chest tube placement 2. Acute hypoxic respiratory failure requiring intubation with mechanical ventilator support. Status post tracheostomy placement by general surgery 3. Acute exacerbation of COPD 4. History of IV drug abuse 5. History of seizure disorder 6. Generalized anxiety disorder 7. Remote history of acute lymphocytic leukemia, status post chemotherapy treatments, currently in remission 8. Severe malnutrition 9. History of deep vein thrombosis Plan: The patient was seen and examined at her bedside in the intensive care unit. He r chart and diagnostics were reviewed. Her case was discussed in detail with Dr. Vicente Hernandez from cardiothoracic surgery. No surgical intervention is warranted at this time, although recommendations for second right pleural chest tube placement for her persistent right pneumothorax. Critical care management recommendations per Dr. Jimenez. Continue chest tubes to low continuous wall suction. Continue to monitor daily chest x-rays for resolution of pneumothorax. We will continue to follow the patient with more recommendations to follow based on patient's clinical course. Thank you Dr. Jimenez for this consult and we look forward to working with you in the care of this patient. Time with Patient: Greater than 30 <Vicente Hernandez - Last Filed: 04/17/20 14:52> Surgical - Exam Vital Signs Temp Pulse Resp BP Pulse Ox 97.4 F L 135 H 24 101/60 88 L 04/02/20 13:04 04/02/20 13:04 04/02/20 13:04 04/02/20 13:04 04/02/20 13:04 Results - Labs 04/17/20 12:32 04/17/20 12:32 Abnormal Lab Results - Last 24 Hours (Table) 11/04/14/20 04/16/20 Range/Units 06:11 08:24 04:44 WBC (3.8-10.6) k/uL RBC (3.80-5.40) m/uL Hgb (11.4-16.0) gm/dL Hct (34.0-46.0) % MCV (80.0-100.0) fL MCH (25.0-35.0) pg MCHC (31.0-37.0) g/dL RDW (11.5-15.5) % Neutrophils # (1.3-7.7) k/uL APTT (22.0-30.0) sec ABG pCO2 89 H* 85 H* 73 H* (35-45) mmHg ABG HCO3 40 H* 41 H* (21-25) mmol/L ABG Total CO2 (19-24) mmol/L ABG O2 Saturation (94-97) % Sodium (137-145) mmol/L Chloride (98-107) mmol/L Carbon Dioxide (22-30) mmol/L BUN (7-17) mg/dL Creatinine (0.52-1.04) mg/dL Glucose (74-99) mg/dL POC Glucose (mg/dL) (75-99) mg/dL Calcium (8.4-10.2) mg/dL ALT (4-34) U/L CK-MB (CK-2) (0.0-2.4) ng/mL C-Reactive Protein (<10.0) mg/L Total Protein (6.3-8.2) g/dL Albumin (3.5-5.0) g/dL Urine Appearance (Clear) Urine Protein (Negative) Ur Leukocyte Esterase (Negative) Urine RBC (0-5) /hpf Urine WBC (0-5) /hpf Urine Bacteria (None) /hpf Urine Mucus (None) /hpf Urine Yeast (Budding) (None) /hpf 04/17/20 04/17/20 04/17/20 Range/Units 00:10 04:15 04:15 WBC 18.3 H (3.8-10.6) k/uL RBC 3.69 L (3.80-5.40) m/uL Hgb 8.7 L (11.4-16.0) gm/dL Hct 28.2 L (34.0-46.0) % MCV 76.5 L (80.0-100.0) fL MCH 23.7 L (25.0-35.0) pg MCHC (31.0-37.0) g/dL RDW 17.8 H (11.5-15.5) % Neutrophils # 15.3 H (1.3-7.7) k/uL APTT (22.0-30.0) sec ABG pCO2 (35-45) mmHg ABG HCO3 (21-25) mmol/L ABG Total CO2 (19-24) mmol/L ABG O2 Saturation (94-97) % Sodium 129 L (137-145) mmol/L Chloride 87 L (98-107) mmol/L Carbon Dioxide 45 H* (22-30) mmol/L BUN 22 H (7-17) mg/dL Creatinine 0.47 L (0.52-1.04) mg/dL Glucose 101 H (74-99) mg/dL POC Glucose (mg/dL) 103 H (75-99) mg/dL Calcium 8.3 L (8.4-10.2) mg/dL ALT (4-34) U/L CK-MB (CK-2) (0.0-2.4) ng/mL C-Reactive Protein 10.3 H (<10.0) mg/L Total Protein 5.0 L (6.3-8.2) g/dL Albumin 2.5 L (3.5-5.0) g/dL Urine Appearance (Clear) Urine Protein (Negative) Ur Leukocyte Esterase (Negative) Urine RBC (0-5) /hpf Urine WBC (0-5) /hpf Urine Bacteria (None) /hpf Urine Mucus (None) /hpf Urine Yeast (Budding) (None) /hpf 04/17/20 04/17/20 04/17/20 Range/Units 04:15 05:00 05:08 WBC (3.8-10.6) k/uL RBC (3.80-5.40) m/uL Hgb (11.4-16.0) gm/dL Hct (34.0-46.0) % MCV (80.0-100.0) fL MCH (25.0-35.0) pg MCHC (31.0-37.0) g/dL RDW (11.5-15.5) % Neutrophils # (1.3-7.7) k/uL APTT (22.0-30.0) sec ABG pCO2 78 H* (35-45) mmHg ABG HCO3 43 H* (21-25) mmol/L ABG Total CO2 46 H (19-24) mmol/L ABG O2 Saturation 99.0 H (94-97) % Sodium (137-145) mmol/L Chloride (98-107) mmol/L Carbon Dioxide (22-30) mmol/L BUN (7-17) mg/dL Creatinine (0.52-1.04) mg/dL Glucose (74-99) mg/dL POC Glucose (mg/dL) (75-99) mg/dL Calcium (8.4-10.2) mg/dL ALT (4-34) U/L CK-MB (CK-2) 2.9 H (0.0-2.4) ng/mL C-Reactive Protein (<10.0) mg/L Total Protein (6.3-8.2) g/dL Albumin (3.5-5.0) g/dL Urine Appearance Cloudy H (Clear) Urine Protein Trace H (Negative) Ur Leukocyte Esterase Moderate H (Negative) Urine RBC 8 H (0-5) /hpf Urine WBC 25 H (0-5) /hpf Urine Bacteria Rare H (None) /hpf Urine Mucus Rare H (None) /hpf Urine Yeast (Budding) Many H (None) /hpf 04/17/20 04/17/20 04/17/20 Range/Units 12:32 12:32 12:32 WBC 16.9 H (3.8-10.6) k/uL RBC (3.80-5.40) m/uL Hgb 9.3 L (11.4-16.0) gm/dL Hct 30.3 L (34.0-46.0) % MCV 76.5 L (80.0-100.0) fL MCH 23.5 L (25.0-35.0) pg MCHC 30.7 L (31.0-37.0) g/dL RDW 18.0 H (11.5-15.5) % Neutrophils # 14.1 H (1.3-7.7) k/uL APTT 20.7 L (22.0-30.0) sec ABG pCO2 (35-45) mmHg ABG HCO3 (21-25) mmol/L ABG Total CO2 (19-24) mmol/L ABG O2 Saturation (94-97) % Sodium 131 L (137-145) mmol/L Chloride 89 L (98-107) mmol/L Carbon Dioxide 48 H* (22-30) mmol/L BUN 19 H (7-17) mg/dL Creatinine 0.39 L (0.52-1.04) mg/dL Glucose (74-99) mg/dL POC Glucose (mg/dL) (75-99) mg/dL Calcium 8.3 L (8.4-10.2) mg/dL ALT 35 H (4-34) U/L CK-MB (CK-2) (0.0-2.4) ng/mL C-Reactive Protein (<10.0) mg/L Total Protein 5.0 L (6.3-8.2) g/dL Albumin 2.5 L (3.5-5.0) g/dL Urine Appearance (Clear) Urine Protein (Negative) Ur Leukocyte Esterase (Negative) Urine RBC (0-5) /hpf Urine WBC (0-5) /hpf Urine Bacteria (None) /hpf Urine Mucus (None) /hpf Urine Yeast (Budding) (None) /hpf Microbiology - Last 24 Hours (Table) 04/16/20 11:58 Catheter Tip Culture - Preliminary Catheter Tip 04/04/20 14:12 Acid Fast Bacilli Smear - Final Bronchial Washings - Right Acid Fast Bacilli Culture - Preliminary 04/16/20 10:45 Gram Stain - Preliminary Neck Wound Culture - Preliminary 04/13/20 19:01 Blood Culture - Preliminary Blood No Growth after 72 hours 04/13/20 18:41 Blood Culture - Preliminary Blood No Growth after 72 hours 04/16/20 10:45 Anaerobic Culture - Preliminary Neck 04/04/20 14:12 Fungal Culture - Preliminary Bronchial Washings - Right Diabetes panel 04/17/20 04/17/20 Range/Units 04:15 12:32 Sodium 129 L 131 L (137-145) mmol/L Potassium 3.8 4.2 (3.5-5.1) mmol/L Chloride 87 L 89 L (98-107) mmol/L Carbon Dioxide 45 H* 48 H* (22-30) mmol/L BUN 22 H 19 H (7-17) mg/dL Creatinine 0.47 L 0.39 L (0.52-1.04) mg/dL Glucose 101 H 94 (74-99) mg/dL Calcium 8.3 L 8.3 L (8.4-10.2) mg/dL AST 25 36 (14-36) U/L ALT 28 35 H (4-34) U/L Alkaline Phosphatase 51 53 (38-126) U/L Total Protein 5.0 L 5.0 L (6.3-8.2) g/dL Albumin 2.5 L 2.5 L (3.5-5.0) g/dL Calcium panel 04/17/20 04/17/20 Range/Units 04:15 12:32 Calcium 8.3 L 8.3 L (8.4-10.2) mg/dL Ionized Calcium Barbara 4.7 4.7 (4.5-5.3) mg/dL Phosphorus 3.0 3.2 (2.5-4.5) mg/dL Albumin 2.5 L 2.5 L (3.5-5.0) g/dL Pituitary panel 04/17/20 04/17/20 Range/Units 04:15 12:32 Sodium 129 L 131 L (137-145) mmol/L Potassium 3.8 4.2 (3.5-5.1) mmol/L Chloride 87 L 89 L (98-107) mmol/L Carbon Dioxide 45 H* 48 H* (22-30) mmol/L BUN 22 H 19 H (7-17) mg/dL Creatinine 0.47 L 0.39 L (0.52-1.04) mg/dL Glucose 101 H 94 (74-99) mg/dL Calcium 8.3 L 8.3 L (8.4-10.2) mg/dL Adrenal panel 04/17/20 04/17/20 Range/Units 04:15 12:32 Sodium 129 L 131 L (137-145) mmol/L Potassium 3.8 4.2 (3.5-5.1) mmol/L Chloride 87 L 89 L (98-107) mmol/L Carbon Dioxide 45 H* 48 H* (22-30) mmol/L BUN 22 H 19 H (7-17) mg/dL Creatinine 0.47 L 0.39 L (0.52-1.04) mg/dL Glucose 101 H 94 (74-99) mg/dL Calcium 8.3 L 8.3 L (8.4-10.2) mg/dL Total Bilirubin 0.3 0.4 (0.2-1.3) mg/dL AST 25 36 (14-36) U/L ALT 28 35 H (4-34) U/L Alkaline Phosphatase 51 53 (38-126) U/L Total Protein 5.0 L 5.0 L (6.3-8.2) g/dL Albumin 2.5 L 2.5 L (3.5-5.0) g/dL Assessment and Plan Plan: I have seen and examined the patient and agree with the assessment and plan as documented by my nurse practitioner
[2020-04-13] MEDS ORDERED: LIDOCAINE 1% INJ 10MG/ML (20 ML MDV) ONE (13:05)
--- NOTE | 2020-04-13 14:22 | XR ---
EXAMINATION TYPE: XR chest 1V portable DATE OF EXAM: 04/13/2020 COMPARISON: 04/13/2020 earlier exam INDICATION: Post chest tube insertion TECHNIQUE: Single frontal view of the chest is obtained. FINDINGS: The heart size is normal. The pulmonary vasculature is normal. There is thickening at the lung apices. Bilateral pneumothorax is present. This appears stable on the left and appears diminished on the righ t. Left-sided chest tube with the tip directed towards the apex is stable. Right-sided chest tube dir ected towards the hilum may be pulled back somewhat from comparison. There is been insertion of a sec ond right-sided chest tube which is curled into the posterior lung base. IMPRESSION: 1. Somewhat diminished pneumothorax on the right following second right-sided chest tube. Chest tube appears to be directed towards the posterior lung base. 2. Stable left pneumothorax
--- NOTE | 2020-04-13 16:40 | P.PN ---
Subjective Progress Note Date: 04/13/20 Principal diagnosis: Acute hypoxic respiratory failure secondary to bilateral pneumonia and bilateral pneumothoraces. And Underlying severe COPD 04/04/2020 the patient is being seen for a follow-up. The patient is going to undergo bronchoscopy today. I was able to obtain records from the hospital as the [facility] and at that time the patient was hospitalized for rae ateral pneumonia. CAT scan of the chest findings were similar to the ones that he had he [place]. The patient underwent further investigation including alpha-1 antitrypsin level came back within normal, cystic fibrosis mutation screen that came back negative, HIV screen that came back negative, fungal screen including Histoplasma urine antigen, cryptococcal serum antigen and Aspergillus antibodies and all of these were negative. For now, the patient is scheduled to undergo bronchoscopy and bronchial lavage. Echocardiogram showed no evidence of any valvular disease or vegetations. She is still short of breath and she has increased dyspnea cough chest tightness and wheezing. No significant sputum production. On 04/05/2020, the patient is in intensive care unit. Mother the patient underwent a bronchoscopy and bronchial lavage yesterday and the procedure was essentially uncomplicated. Yesterday evening and health care assistant hours, the patient became progressively more short of breath, tachypnea, tachycardic and hypoxic. At that point, the emergency team was called and the patient was evaluated twice. During the second evaluation, chest x-ray was done and the patient was found to have diffuse but the pulmonary infiltrates in addition to hypoxic respiratory failure. The patient was started on a BiPAP at a pressure of 12/5 with an FiO2 of 60% and the patient got transferred to the ICU. She was also given a dose of Lasix. She started producing adequate amount of urine output. Nevertheless, she continued to have agonal breathing, low tidal volume and increased tachypnea with impending signs of respiratory failure even while being on a BiPAP. At that point, I made a decision to intubate the patient in intensive care unit. The patient was intubated by #8 orotracheal tube. She was placed on a mechanical ventilator. A triple lumen catheter was established. An outlying catheter was also established. The post intubation blood gas showed a pH of 7.25 with a pCO2 of 87 pO2 of 386 and this was done on assist control mode at the rate of 20 with tidal volume of 350 and FiO2 of 100% with a PEEP of 5. FiO2 is down to 50%. The patient at this point in time is sedated with propofol and the patient is calm and comfortable. Fentanyl was also added to improve for sedation while being a mechanical ventilator. Results of the bronchioloalveolar lavage is still negative. No microbial growth. The patient remains on a combination of IV cefepime and vancomycin. The post intubation chest x-ray showed bilateral pleural thickening and bilateral airspace disease seen although somewhat improved compared to the earlier chest x-rays. ET tube was around 1 cm above the sandra. Blood work from this morning showed a hemoglobin of 7.2. White cell count of 15.8. Aggressive the blood work essentially within normal limits. On 04/06/2020, the patient remains intubated on a mechanical. On today's evaluation the patient is on propofol running at 50 g per KG per minute. The patient is also on fentanyl drip at 3 g per KG per minute. IV fluids at KVO and the patient is on levo fed at 0.1 mg per KG per minute. The patient remains on mechanical ventilator on assist control mode at the rate of 24 with a tidal volume loss was 75 with an FiO2 of 50% and PEEP of 5. Peak airway pressure 37. Plateau airway pressure is 35. Patient is receiving tube feed with vital high protein at the rate of 10 mL an hour and the patient will be advanced to goal. The bronchioloalveolar lavage that was done earlier came back negative for any microbial growth. A chest x-ray from today shows some improvement and by the pulmonary infiltrate that was established on yesterday's chest x-ray. The patient remains on a combination of cefepime and vancomycin. Lasix will be restarted. No other significant events otherwise for now. She is requiring norepinephrine infusion for blood pressure control. Echocardiogram at shown a preserved LV function without any significant LV dysfunction. Triple lumen catheter has been established and have right femoral vein. She also has an arterial line catheter. I was concerned about elevated airway pressures in this patient. Unable to ventilate with a higher volumes as the patient's pressure will go significantly high. I switch this patient to a pressure control mode of ventilation. 04/07/2020, the patient is being seen for follow-up. The patient remains intubated on a mechanical ventilator. The patient is on assist control ventilation and on today's evaluation the patient is on a pressure control of 30 with a PEEP of 5 and FiO2 of 50% with a rate of 34. The blood gases from today showed a pH of 7.47 with a pCO2 of 69 a pO2 of 168 and a follow-up chest x-ray from today showed improvement in the bilateral pulmonary infiltrates. Nevertheless, there was a note of a right-sided pneumothorax. Based on this, a CAT scan of the chest was done to confirm the findings and the patient did have a right-sided pneumothorax there was moderate in size in addition to bilateral diffuse bilateral a disease and small bilateral pleural effusions. At that point, a 24-American chest tube was inserted in the right hemithorax and a follow- up chest x-ray is pending for now. The patient remains hemodynamically stable and there was no evidence of any tension due to this pneumothorax. I also did some ventilator changes. I dropped the pressure control down to 20 and dropped a respiratory rate down to 24 and drop the FiO2 down to 40%. A repeat blood gases was done and the repeat blood gases showed a pH of 7.37 with a pCO2 of 89 pO2 of 95. The patient's white cell count of 10.4 with hemoglobin of 7.2. The rest of the blood work and electrodes with a component of metabolic alkalosis with a serum bicarb of 50 and a sodium of 141. The patient remains on broad- spectrum antibiotics. Vancomycin was discontinued as the patient's bronchial alveolar lavage did not reveal any microbial growth and I'm going to keep this patient only on cefepime for now. The patient remains sedated with a combination of fentanyl erythematous events per KG per minute and for prophylaxis for microvascular KG per minute. The patient is also being diuresis with Lasix at a dose of 20 mg IV push every 12 hours. The patient is on vital high protein at the rate of 30 mL an hour. 04/08/2020, the patient remains intubated on a mechanical ventilator. Unfortunately, she continues to have a small right-sided pneumothorax despite a chest tube insertion. The air leak from the right-sided chest tube is minimal at this point in time and output is minimal. The patient is extremely debilitated. 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 She has advanced COPD with chronic lung disease. She is currently on a pressure control mode of ventilation with a pressure control of 20 with an FiO2 of 40% with a PEEP of 5 and the rate of 24. The blood gases showed a pH of 7.43 with a pCO2 of 84 and pO2 of 111. The peak airway pressure 33. The static airway pressure is 27. The patient remains sedated with propofol at the rate of 50 g per KG per minute and fentanyl is running at a rate of 3 g per KG per minute. Norepinephrine is running at 0.02 g per KG per minute. Cultures from the bronchioloalveolar lavage has been negative and the patient is still on cefepime as a broad-spectrum antibiotic coverage for now. She is being diuresed with IV Lasix at a dose of 20 mg IV push every 12 hours. The dose of Lasix will be tapered as the patient has been adequate fluid balance. The chest x-ray findings shows improvement and by the pulmonary infiltrates. There is however a stable loculated right-sided pneumothorax and the right-sided chest tube is in good location. ET tube is in good location. The patient was started on enteral feeding for nutritional support. I'm very much convinced that the patient would benefit from a PEG and trach as the patient has advanced lung disease and she is quite debilitated and malnourished at this young age. On a separate note, earlier this morning the patient went into a bout of an SVT with a heart rate of 160. The patient was given 2 doses o f IV Rocephin, 6 mg and 12 mg without success. Her heart rate gradually is improving at this point in time and over the next few hours, the patient's heart rate dropped down to 112 Reevaluated today on 04/09/20, patient remains intubated and mechanically ventilated. She is on pressure control mode of mechanical ventilation, pressure control is set at 24, inspiratory time is 0.65 seconds patient is on 40% FiO2 and PEEP of 5. She was intubated on 04/05/20, she is on propofol at 50 mcg/kg/m, fentanyl at 3 mcg/kg/h, she is also on norepinephrine at 0.01 mcg/kg/m. IV fluid is at 20 mL per hour. Patient has a right femoral triple- lumen catheter. Right radial arterial line. Right-sided chest tube with air leak noted. And today she ended up with a left-sided chest tube for left-sided pneumothorax which was noted on the chest x-ray earlier today. Patient is on tube feeding vital Hb 53 mL/h and this is the goal is also on cefepime empirically. ABG today showed a pO2 of 148 pCO2 of 74 pH of 7.34. WBC count is 7.6 hemoglobin is 7.8. Electrolytes and renal profile are normal. Bicarb is 39. This morning chest x-ray showed left-sided pneumothorax which is a new hence I went ahead and placed a left sided chest tube 28 [place] chest tube was placed since the patient is on mechanical ventilation. Not much changes noted in the pneumothorax after the chest tube placement Reevaluated today on 04/10/20, patient remains intubated and mechanically ventilated ventilator settings are pressure control set at 26, FiO2 is 35%, PEEP is at 5, inspiratory time is 0.70 and the rate is 24. Patient seems to be doing better today, better and adequate tidal volumes noted, just over 300 mL tidal volumes. Chest x-ray continues to show bilateral pneumothoraces secondary to barotrauma. Chest tubes are both in place. ABG today showed a pO2 of 211 pCO2 of 57 pH of 7.40, hence I cut down the FiO2 to 35%. Both tubes continued to have intermittent leaks. Patient is on fentanyl which I cut down to 1 mcg/kg/h and she is on propofol at 50. IV fluids at KVO, patient is do not feeding at present mostly because she is scheduled to undergo a PEG tube placement and tracheostomy today. CBC is relatively normal except for hemoglobin of 8.1. Electrolytes showed a sodium of 147 bicarb history renal profile is normal Reevaluated today on 04/11/20, patient remains in the ICU, intubated and m echanically ventilated. Patient remains on assist control rate of 30 tidal volume is 250 FiO2 is 40% and PEEP of 5. ABG today showed a pO2 of 139 pCO2 of 81 pH of 7.27. Chest x-ray continues to show bilateral pneumothoraces, not expanding, unchanged. Continues to have 2 bilateral chest tubes. One every hour side. Continues to have some air leak in the right-sided chest tube, and intermittent leak in the left sided chest tube. Patient remains on propofol at 50 mcg/kg/m, she is also on fentanyl at 50 mcg/kg/m, Nimbex at 1 mcg/kg/m, IV fluid is at KVO. Patient is also on enteral feeding. Yesterday the patient was switched from pressure control to assist control mode of mechanical ventilation. And that seems to be working better for the patient today. Gases are actually a bit improving. Patient is scheduled to undergo tracheostomy and PEG tube placement today. CBC showed WBC count of 10 hemoglobin of 8.7 hematocrit of 30.6. Her sodium seems to be high today at 152 hence the patient will be placed on free water via nasogastric tube, and we'll switch her IV fluid to D5W. Will discontinue Lasix. 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 I did cut down the rate down to 26, decrease the flow to 65 L/m, ABG showed a pO2 of 119 pCO2 of 71 pH of 7.37. Patient is on Nimbex, propofol at 50 mcg/kg/m, fentanyl, and her IV fluid is D5W at 100 mL per hour. Patient went off Nimbex earlier today, however she was noted to be more tachypneic, tachycardic, has had to be placed back on Nimbex to adequately ventilate the patient. Portable chest x-ray showed basically no change, continues to have bilateral chest tubes, and her bilateral pneumothoraces are unchanged. Basic metabolic profile today is normal bicarb is 43. Renal profile is normal WBC count is 17.1 hemoglobin is 8.2 hematocrit is 30.1. Reevaluated today on 04/13/20, patient remains in the ICU, intubated and mechanically ventilated. Remains basically on the same ventilator settings assist control rate of 30, tidal volume is 250 rate is 30, FiO2 is 35%, and PEEP is 5. ABG earlier today showed a pO2 of 105 pCO2 of 80 9H of 7.23, and based on that ABG, assist control rate was increased. Patient remains on fentanyl, propofol, Nimbex, and her follow-up chest x-ray today showed persistent low relatively large right-sided pneumothorax,, thoracic surgery was consulted, and recommended another chest tube to be placed. Went ahead and placed another right-sided chest tube, definite improvement noted in the right-sided pneumothorax, but did not completely resolved. Multiple attempts were made to discontinue Nimbex, however the patient gets extremely agitated, tachypneic and tachycardic, and gets to the point where it is extremely difficult to ventilate the patient. Hence lay's back on Nimbex again today after a trial of weaning from Nimbex. Electrolytes were noted to be normal. Renal profile is normal. WBC count is 18.1 hemoglobin is 8.2. Objective - Vital Signs Vital signs: Vital Signs Temp 98.0 F 04/13/20 08:00 Pulse 134 H 04/13/20 16:09 Resp 30 H 04/13/20 14:00 BP 120/67 04/13/20 14:00 Pulse Ox 96 04/13/20 14:00 Intake & Output 04/12/20 04/13/20 04/13/20 18:59 06:59 18:59 Intake Total 5120.554 3200.04 548.752 Output Total 1150 1455 1125 Balance 618.510 794.04 -576.248 Weight 41 kg 41 kg Intake: IV 1133 1339 300 Dextrose 5% in Water 1, 1100 1100 000 ml @ 100 mls/hr IV . Q10H [facility] Rx#:[id number] Pressure bag 33 39 Sodium Chloride 0.9% 1, 200 300 000 ml @ 100 mls/hr IV . Q10H [facility] Rx#:[id number] Intake, IV Titration 485.510 414.04 215.752 Amount Cefepime 2 gm In Sodium 100 Chloride 0.9% 100 ml @ 25 mls/hr IVPB Q12HR [facility] Rx #:[id number] Cisatracurium 200 mg In 132.470 31.98 115.752 Sodium Chloride 0.9% 180 ml @ 1 MCG/KG/MIN 3.12 mls/hr IV .Q24H [facility] Rx#: [id number] fentaNYL (PF) 2,500 mcg 211.64 247.26 In Sodium Chloride 0.9% 200 ml @ Per Protocol IV .Q0M [facility] Rx#:[id number] propofoL 1,000 mg In 141.4 134.8 Empty Bag 1 bag @ Titrate IV .Q0M [facility] Rx#: [id number] Tube Feeding 90 406 33 Other 60 90 Output: Urine 1150 1455 1125 Other: Voiding Method Indwelling Catheter Indwelling Catheter Indwelling Catheter # Voids 1 ABP, PAP, CO, CI - Last Documented Arterial Blood Pressure 134/65 - Exam atient thinking cachectic female patient, she looks quite emaciated. She has multiple tattoos. Intubated and mechanically ventilated. Head atraumatic, normocephalic. HEENT: PERRLA, EOMI, neck, no neck masses, no JVD, no stridor.. CHEST EXAMINATION: Trachea is central. Symmetrical expansion.bilateral diminished air entry and wheezing. CARDIAC: Normal S1, S2 with no gallops. No murmurs ABDOMEN: Soft. Bowel sounds normal. No organomegaly. No abdominal bruits. Extremities: reveal no edema. No clubbing or cyanosis Neurologically sedated, opens eyes to painful stimuli, could not be fully assessed. Skin: No rash or skin lesions. Psychiatric: Could not assess. Patient is sedated Musculoskeletal: Significant muscle wasting noted bilaterally and the patient is extremely frail - Labs CBC & Chem 7: 04/13/20 03:25 04/13/20 03:25 Labs: Abnormal Lab Results - Last 24 Hours (Table) 04/12/20 04/12/20 04/12/20 Range/Units 05:00 18:14 23:58 WBC (3.8-10.6) k/uL RBC (3.80-5.40) m/uL Hgb (11.4-16.0) gm/dL Hct (34.0-46.0) % MCV (80.0-100.0) fL MCH (25.0-35.0) pg MCHC (31.0-37.0) g/dL RDW (11.5-15.5) % Neutrophils # (1.3-7.7) k/uL Lymphocytes # (1.0-4.8) k/uL ABG pH (7.35-7.45) ABG pCO2 71 H* (35-45) mmHg ABG HCO3 41 H* (21-25) mmol/L ABG Total CO2 (19-24) mmol/L ABG O2 Saturation (94-97) % Carbon Dioxide (22-30) mmol/L BUN (7-17) mg/dL Glucose (74-99) mg/dL POC Glucose (mg/dL) 117 H 193 H (75-99) mg/dL ALT (4-34) U/L Albumin (3.5-5.0) g/dL 04/13/20 04/13/20 04/13/20 Range/Units 03:25 03:25 05:47 WBC 18.1 H (3.8-10.6) k/uL RBC 3.77 L (3.80-5.40) m/uL Hgb 8.2 L (11.4-16.0) gm/dL Hct 29.4 L (34.0-46.0) % MCV 77.8 L (80.0-100.0) fL MCH 21.7 L (25.0-35.0) pg MCHC 27.9 L (31.0-37.0) g/dL RDW 16.4 H (11.5-15.5) % Neutrophils # 16.9 H (1.3-7.7) k/uL Lymphocytes # 0.7 L (1.0-4.8) k/uL ABG pH (7.35-7.45) ABG pCO2 (35-45) mmHg ABG HCO3 (21-25) mmol/L ABG Total CO2 (19-24) mmol/L ABG O2 Saturation (94-97) % Carbon Dioxide 38 H (22-30) mmol/L BUN 32 H (7-17) mg/dL Glucose 198 H (74-99) mg/dL POC Glucose (mg/dL) 197 H (75-99) mg/dL ALT 50 H (4-34) U/L Albumin 3.2 L (3.5-5.0) g/dL 04/13/20 04/13/20 Range/Units 06:11 11:15 WBC (3.8-10.6) k/uL RBC (3.80-5.40) m/uL Hgb (11.4-16.0) gm/dL Hct (34.0-46.0) % MCV (80.0-100.0) fL MCH (25.0-35.0) pg MCHC (31.0-37.0) g/dL RDW (11.5-15.5) % Neutrophils # (1.3-7.7) k/uL Lymphocytes # (1.0-4.8) k/uL ABG pH 7.23 L (7.35-7.45) ABG pCO2 89 H* (35-45) mmHg ABG HCO3 38 H (21-25) mmol/L ABG Total CO2 40 H (19-24) mmol/L ABG O2 Saturation 98.5 H (94-97) % Carbon Dioxide (22-30) mmol/L BUN (7-17) mg/dL Glucose (74-99) mg/dL POC Glucose (mg/dL) 122 H (75-99) mg/dL ALT (4-34) U/L Albumin (3.5-5.0) g/dL Assessment and Plan Assessment: Impression: Acute hypoxic respiratory failure with bilateral infiltrates, improving Acute exacerbation of COPD. Bilateral pneumothoraces secondary to barotrauma. Status post placement of a left and 2 right-sided chest tubes for bilateral pneumothoraces. History of IV drug abuse. History of seizure disorder. Generalized anxiety disorder. Remote history of acute lymphocytic leukemia, in remission. Severe malnutrition, BMI is 20.3, this is protein calorie malnutrition, severe in nature. Chronic hypercapnic respiratory failure with metabolic compensation. Hypernatremia with free water deficit, improving with free water given. Status post tracheostomy and PEG tube placement on 04/11/20. Recommendation: Continue present supportive care measures. Continue ventilatory support. Continue nutritional support. Continue antibiotics. Continue bronchodilators and IV Solu-Medrol. Not ready for any form of weaning. Continue PEG tube feeding Continue Nimbex, fentanyl, and propofol. Patient did not tolerate being off Nimbex, to be placed back on Nimbex today. Continue GI and DVT prophylaxis. Continue D5W. Continue to hold Lasix. Prognosis is poor, Critical care time is over 30, not including time spent on procedures. Time with Patient: Greater than 30
[2020-04-13] MEDS: CISATRACURIUM 200 MG in SODIUM CHLORIDE 0.9% 180 ML IV SCH (17:11)
[2020-04-13 17:18] LABS: Glucose,Whole Blood 146 mg/dL (75-99)
--- NOTE | 2020-04-13 17:18 | PCN ---
PROCEDURE NOTE OPERATIVE REPORT: Right-sided tube thoracostomy/right-sided chest tube placement. PREOPERATIVE DIAGNOSIS: Persistent right-sided pneumothorax. POSTOPERATIVE DIAGNOSIS: Persistent right-sided pneumothorax. ANESTHESIA: 10 mL of 1% lidocaine. PROCEDURE: The patient was placed in a supine position, the area of the right chest area below and lateral to the right breast was prepared in a sterile fashion and drapes were applied. At the level of the fifth intercostal space, and anterior axillary line, the area was anesthetized with lidocaine. Then a 1 cm incision was made, and the area was dissected using the finger and Denise forceps. The pleural space was entered, then a right-sided chest tube, size 28 argyle chest tube was placed, aimed the tube atypically; however, on the followup chest x-ray was noted to be pointed posteriorly. And there was a posterior base. At any rate, the postoperatively the chest x-ray showed significant improvement in the right-sided pneumothorax, the tube was kept in place, and sutured with 0.0 Ethibond sutures. No evidence of any immediate complications. MMODL / IJN: [id number] /
[2020-04-13] MEDS: ACETAMINOPHEN TAB 325 MG TAB PO PRN (18:38)
--- NOTE | 2020-04-13 18:58 | CONS ---
CONSULTATION Mrs. Hoover is a 29-year-old female who was admitted here on 04/02/2020 with respiratory failure and bilateral pneumonias. The patient has a history of COPD, asthma, deep venous thrombosis, seizure disorder, IV drug abuse. Apparently she was in a hospital in [place] for an infection, but she signed [employer]INST [employer] and came to [place] to be close to her family. Since admission, patient needed intubation. She also developed bilateral pneumothorax requiring chest tubes. We are asked to see the patient to rule out the possibility of endocarditis. The patient has been treated with multiple antibiotics for pneumonia. Currently she does not seem to be febrile. The patient has a white count of 18,000, anemic. Her ABG shows pH of 7.23 with a pCO2 of 89 and PO2 of 105 on FiO2 of 35. The patient is tachycardic with heart rates in the 130s. Clinically I did not hear any significant murmurs at this time. The patient had an echocardiogram done on 04/02 which showed normal LV function without any evidence of any significant valvular abnormalities or vegetations. At this point I will repeat the echocardiogram to see if there are any signs of vegetation on the valves or valvular dysfunction. The patient is critically ill otherwise. Further recommendations will depend upon her clinical course. The patient may be a poor candidate for OLVIN, given her pneumothorax and respiratory failure and hypercapnia. PAST MEDICAL HISTORY: Her past medical history is significant for asthma, deep venous thrombosis, seizure disorder, drug abuse, and also she was treated for lymphoma in the past. Rest of the information as per the chart. REVIEW OF SYSTEMS: As per the chart. PHYSICAL EXAMINATION: Physical examination at this time reveals a thin-looking female who is intubated and sedated. The patient also has chest tubes. She has a tracheostomy. NECK: Supple. Mild jugular venous distention. HEART: S1 and S2 heard. Tachycardic. No significant murmurs heard. LUNGS: Lungs show diminished breath sounds at both bases. EXTREMITIES: No significant edema. LABS/IMAGING: Lab evaluation showed a white count of 18,000, hemoglobin 8.2. Her creatinine is normal at 0.55. Potassium is 4.2. EKG on 04/02 showed sinus tachycardia. No further EKGs are available. Apparently intermittently she was showing some T-wave inversions on the EKG, but these are computer-generated EKGs with some artifacts. I would like to see a surface. PLAN: Will continue current medical therapy, get surface echocardiogram, get surface EKGs, and further recommendations will depend upon the clinical course. Infectious Disease is also following the patient. MMODL / IJN: [id number] /
[2020-04-13] MEDS: LORazepam 2 MG/ML INJ IV PRN (20:01)
--- NOTE | 2020-04-13 21:52 | P.PN ---
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 Patient does have history of IV drug abuse and stopped using approximately 2 weeks ago. Patient was seen at outside hospital in [place] for difficulty in breathing. Patient left AGAINST MEDICAL ADVICE. Patient came to [place] to see her family and has been having worsening symptoms again with cough and dyspnea. Chest x-ray showed diffuse bilateral pleural parenchymal changes.Coronavirus PCR and influenza A and B negative.CT angiogram showed no evidence of pulmonary embolism. Patient is status post bronchoscopy with bronchial lavage on 04/04. Patient eventually need intubation and placed on mechanical ventilation for worsening respiratory failure. Her hospital course was complicated by right pneumothorax and chest tube was placed by surgery team. Today she developed left-sided pneumothorax with another chest tube was placed. Patient remains on broad-spectrum antibiotics with cefepime , she was on IV vancomycin which is a stopped now. Also she is on small doses of IV Lasix 20 mg daily and salmeterol 60 mg. Surgery team were consulted for PEG tube and tracheostomy placement 04/10/2020 Patient remains in the ICU for COPD and pneumonia, his currently on cefepime and IV Solu-Medrol. He is intubated on mechanical ventilation was managed closely by pulmonary/critical care team. As per the pulmonary team patient is doing better today. His hospital course is complicated by bilateral pneumothoraces status post bilateral chest tube. Also patient is undergoing PEG tube and tracheostomy placement Also patient is still tachycardic and tachypneic. Also patient is on Lasix 20 mg twice daily, was once daily yesterday 04/11/2020 Patient remains in the ICU on mechanical ventilation and looks patient is doing better with her oxygenation and depressed ventilation with pulmonary/critical care team followed closely. She still has bilateral chest tubes for bilateral pneumothoraces Patient underwent PEG tube placement and tracheostomy placement by surgery team Her sodium was trending up to 152, D5 W was started and Lasix was stopped. 04/12/2020 Patient remains in the ICU, on mechanical ventilation with pulmonary/critical care team on the case. Patient was tachycardic and tachypneic and she had to be placed back on the buttocks however generally there is normal change in her clinical condition. She still needs bilateral chest tubes for bilateral pneumothoraces. She status post PEG tube and tracheostomy by surgery team She remains on cefepime Solu-Medrol 03/13/2020 Patient remains in the ICU intubated and sedated, she is on mechanical ventilation, she status post PEG tube placement and tracheostomy. No much progress in her condition. Cardiothoracic surgery evaluated the patient for her chest tube management. She still have air leak on the right side. No surgical intervention further recommendation and to continue suction on blood pressure Patient remains on cefepime for her bilateral airway disease. Her hypernatremia is improved with D5W and currently she is on normal saline at 100 mL/h and sodium level is 140. Also she is on Solu-Medrol for her severe asthma. Pulmon eiler/critical care team on the case. Review of systems: N/a Active Medications Generic Name Dose Route Start Last Admin Trade Name Freq PRN Reason Stop Dose Admin Acetaminophen 650 mg 04/03/20 13:35 04/13/20 18:38 Acetaminophen Tab 325 Mg Tab PO 650 mg Q6HR PRN Administration Fever and/ or Pain Albuterol/Ipratropium 3 ml 04/02/20 17:41 04/04/20 02:02 Ipratropium-Albuterol 3 Ml Neb INHALATION 3 ml RT-Q4H PRN Administration Shortness Of Breath Or Wheezing Albuterol/Ipratropium 3 ml 04/02/20 20:00 04/13/20 20:02 Ipratropium-Albuterol 3 Ml Neb INHALATION 3 ml RT-QID CRISTHIAN Administration Artificial Tears 1 drops 04/12/20 04:00 04/13/20 20:02 Artificial Tears-Hypromellose Drops 15 Ml Btl BOTH EYES 1 drops Q4H CRISTHIAN Administration Buspirone HCl 7.5 mg 04/04/20 21:00 04/13/20 20:05 Buspirone Hcl 5 Mg Tab PO 7.5 mg BID CRISTHIAN Administration Chlorhexidine Gluconate 15 ml 04/05/20 21:00 04/13/20 20:04 Chlorhexidine Gluconate 15 Ml Cup MUCOUS MEM 15 ml BID CRISTHIAN Administration Enoxaparin Sodium 40 mg 04/03/20 09:00 04/13/20 08:43 Enoxaparin 40 Mg/0.4 Ml Syringe SQ 40 mg DAILY CRISTHIAN Administration Famotidine 20 mg 04/09/20 21:00 04/13/20 20:02 Famotidine 20 Mg/2 Ml Vial IV 20 mg Q12HR CRISTHIAN Administration Ferrous Sulfate 325 mg 04/05/20 07:30 04/13/20 17:10 Ferrous Sulfate 325 Mg Tab PO Not Given BID-W/MEALS CRISTHIAN Guaifenesin/Codeine Phosphate 10 ml 04/03/20 15:09 04/04/20 01:57 Guaifenesin-Coden 100-10mg/5ml 10 Ml Cup PO 10 ml Q6H PRN Administration Cough Cefepime HCl 2 gm/ Sodium 100 mls @ 25 mls/hr 04/03/20 10:30 04/13/20 20:03 Chloride IVPB 25 mls/hr Q12HR CRISTHIAN Administration Propofol 1,000 mg/ IV Solution 100 mls @ 0 mls/hr 04/05/20 10:45 04/13/20 05:44 IV 50 mcg/kg/min .Q0M CRISTHIAN 12 mls/hr Administration Protocol Titrate Norepinephrine Bitartrate 32 250 mls @ 1.23 mls/hr 04/05/20 11:15 04/13/20 11:01 mg/ Sodium Chloride IV Not Given .Q24H CRISTHIAN Protocol 0.05 MCG/KG/MIN Fentanyl Citrate 2,500 mcg/ 250 mls @ 0 mls/hr 04/09/20 15:00 04/13/20 20:15 Sodium Chloride IV 4 mcg/kg/hr .Q0M CRISTHIAN 16.4 mls/hr Titration Protocol Per Protocol Cisatracurium Besylate 200 mg/ 200 mls @ 3.12 mls/hr 04/10/20 22:30 04/13/20 20:14 Sodium Chloride IV 4 mcg/kg/min .Q24H CRISTHIAN 12.48 mls/hr Titration Protocol 1 MCG/KG/MIN Sodium Chloride 1,000 mls @ 100 mls/hr 04/13/20 06:00 04/13/20 17:11 Saline 0.9% IV 100 mls/hr .Q10H CRISTHIAN Administration Insulin Aspart 0 unit 04/05/20 18:00 04/13/20 17:20 Insulin Aspart (Novolog) 100 Unit/Ml Vial SQ 3 unit Q6H CRISTHIAN Administration Protocol Lorazepam 1 mg 04/05/20 06:21 04/13/20 20:01 Lorazepam 2 Mg/Ml Inj IV 1 mg Q4HR PRN Administration Anxiety Methylprednisolone Sodium Succinate 60 mg 04/02/20 18:30 04/13/20 17:12 Methylprednisolone Sod Succi 125 Mg/2 Ml Vial IV 60 mg Q6HR CRISTHIAN Administration Ondansetron HCl 4 mg 04/03/20 15:08 04/03/20 16:14 Ondansetron 4 Mg/2 Ml Vial IVP 4 mg Q6HR PRN Administration Nausea And Vomiting Objective - Vital Signs Vital signs: Vital Signs Temp 99.6 F 04/13/20 20:00 Pulse 138 H 04/13/20 21:00 Resp 30 H 04/13/20 21:00 BP 111/62 04/13/20 21:00 Pulse Ox 92 L 04/13/20 21:00 Intake & Output 04/13/20 04/13/20 04/14/20 06:59 18:59 06:59 Intake Total 2249.04 1198.768 76.388 Output Total 1455 1550 Balance 794.04 -351.232 76.388 Weight 41 kg 41 kg Intake: IV 1339 700 Dextrose 5% in Water 1, 1100 000 ml @ 100 mls/hr IV . Q10H CRISTHIAN Rx#:[id number] Pressure bag 39 Sodium Chloride 0.9% 1, 200 700 000 ml @ 100 mls/hr IV . Q10H CRISTHIAN Rx#:[id number] Intake, IV Titration 414.04 465.768 76.388 Amount Cefepime 2 gm In Sodium 100 Chloride 0.9% 100 ml @ 25 mls/hr IVPB Q12HR CRISTHIAN Rx #:[id number] Cisatracurium 200 mg In 31.98 157.248 28.548 Sodium Chloride 0.9% 180 ml @ 1 MCG/KG/MIN 3.12 mls/hr IV .Q24H CRISTHIAN Rx#: [id number] fentaNYL (PF) 2,500 mcg 247.26 208.52 47.84 In Sodium Chloride 0.9% 200 ml @ Per Protocol IV .Q0M CRISTHIAN Rx#:[id number] propofoL 1,000 mg In 134.8 Empty Bag 1 bag @ Titrate IV .Q0M CRISTHIAN Rx#: [id number] Tube Feeding 406 33 Other 90 Output: Urine 1455 1550 Other: Voiding Method Indwelling Catheter Indwelling Catheter # Voids 1 ABP, PAP, CO, CI - Last Documented Arterial Blood Pressure 116/56 - Exam -GENERAL: The patient is intubated and sedated HEENT: Pupils are round and equally reacting to light. EOMI. No scleral icterus. No conjunctival pallor. Normocephalic, atraumatic. No pharyngeal erythema. No thyromegaly. CARDIOVASCULAR: S1 and S2 present. No murmurs, rubs, or gallops. -PULMONARY: Chest is clear to auscultation, no wheezing or crackles. Bilateral chest tube placement ABDOMEN: Soft, nontender, nondistended, normoactive bowel sounds. No palpable organomegaly. MUSCULOSKELETAL: No joint swelling or deformity. EXTREMITIES: No cyanosis, clubbing, or pedal edema. NEUROLOGICAL: Gross neurological examination did not reveal any focal deficits. SKIN: No rashes. no petechiae. - Labs CBC & Chem 7: 04/13/20 03:25 04/13/20 03:25 Labs: Abnormal Lab Results - Last 24 Hours (Table) 04/12/20 04/12/20 04/13/20 Range/Units 05:00 23:58 03:25 WBC 18.1 H (3.8-10.6) k/uL RBC 3.77 L (3.80-5.40) m/uL Hgb 8.2 L (11.4-16.0) gm/dL Hct 29.4 L (34.0-46.0) % MCV 77.8 L (80.0-100.0) fL MCH 21.7 L (25.0-35.0) pg MCHC 27.9 L (31.0-37.0) g/dL RDW 16.4 H (11.5-15.5) % Neutrophils # 16.9 H (1.3-7.7) k/uL Lymphocytes # 0.7 L (1.0-4.8) k/uL ABG pH (7.35-7.45) ABG pCO2 71 H* (35-45) mmHg ABG HCO3 41 H* (21-25) mmol/L ABG Total CO2 (19-24) mmol/L ABG O2 Saturation (94-97) % Carbon Dioxide (22-30) mmol/L BUN (7-17) mg/dL Glucose (74-99) mg/dL POC Glucose (mg/dL) 193 H (75-99) mg/dL ALT (4-34) U/L Albumin (3.5-5.0) g/dL 04/13/20 04/13/20 04/13/20 Range/Units 03:25 05:47 06:11 WBC (3.8-10.6) k/uL RBC (3.80-5.40) m/uL Hgb (11.4-16.0) gm/dL Hct (34.0-46.0) % MCV (80.0-100.0) fL MCH (25.0-35.0) pg MCHC (31.0-37.0) g/dL RDW (11.5-15.5) % Neutrophils # (1.3-7.7) k/uL Lymphocytes # (1.0-4.8) k/uL ABG pH 7.23 L (7.35-7.45) ABG pCO2 89 H* (35-45) mmHg ABG HCO3 38 H (21-25) mmol/L ABG Total CO2 40 H (19-24) mmol/L ABG O2 Saturation 98.5 H (94-97) % Carbon Dioxide 38 H (22-30) mmol/L BUN 32 H (7-17) mg/dL Glucose 198 H (74-99) mg/dL POC Glucose (mg/dL) 197 H (75-99) mg/dL ALT 50 H (4-34) U/L Albumin 3.2 L (3.5-5.0) g/dL 04/13/20 04/13/20 Range/Units 11:15 17:16 WBC (3.8-10.6) k/uL RBC (3.80-5.40) m/uL Hgb (11.4-16.0) gm/dL Hct (34.0-46.0) % MCV (80.0-100.0) fL MCH (25.0-35.0) pg MCHC (31.0-37.0) g/dL RDW (11.5-15.5) % Neutrophils # (1.3-7.7) k/uL Lymphocytes # (1.0-4.8) k/uL ABG pH (7.35-7.45) ABG pCO2 (35-45) mmHg ABG HCO3 (21-25) mmol/L ABG Total CO2 (19-24) mmol/L ABG O2 Saturation (94-97) % Carbon Dioxide (22-30) mmol/L BUN (7-17) mg/dL Glucose (74-99) mg/dL POC Glucose (mg/dL) 122 H 146 H (75-99) mg/dL ALT (4-34) U/L Albumin (3.5-5.0) g/dL Assessment and Plan Assessment: Bilateral patchy groundglass opacities Secondary to pneumonia. Patient possible ARDS Acute hypoxic respiratory failure secondary to pneumonia currently patient is on mechanical ventilator. Status post tracheostomy and PEG placement on 04/11 Bilateral pneumothorax. Status post bilateral chest tube placement. Acute asthma exacerbation hypernatremia Recent history of IV drug abuse, about 2 weeks prior to admission non-Compliance to therapy. The patient left [place] in [facility] History of ALL currently in remission. History of Anxiety Nicotine dependence, everyday smoker Plan: This is a 29 years old female who presents with bilateral pneumonia and possible ARDS and bilateral pneumothorax status post chest tube. Continue with antibiotic, continue with steroids. Discontinue IV Lasix and continue with D5W. agement. Follow-up recommendation by pulmonary/critical care team R following the case closely. Labs and medication were reviewed.. Continue same treatment. Continue with symptomatic treatment. Resume home medication. Monitor lytes and vitals. DVT and GI prophylaxis. Further recommendationsas per clinical course of the patient DVT prophylaxis: Subcutaneous Lovenox GI Prophylaxis: Pepcid Prognosis is guarded
--- NOTE | 2020-04-13 22:04 | PN ---
PROGRESS NOTE DATE OF SERVICE: 04/13/2020 REASON FOR FOLLOWUP: Pneumonia. INTERVAL HISTORY: The patient did have a low-grade fever of 100 degrees Fahrenheit this evening. The patient is hemodynamically stable, not on any pressor support. FiO2 is currently 30%. No significant purulent secretions in the ET or any diarrhea reported by the nursing staff. PHYSICAL EXAMINATION: Blood pressure 117/63 with a pulse of 104, temperature 100. She is 93% on 30% FiO2. General description is a middle-aged female intubated on the vent. RESPIRATORY SYSTEM: Unlabored breathing with decreased breath sounds at the base. No wheeze. HEART: S1, S2. Regular rate and rhythm. ABDOMEN: Soft. No tenderness. LABS/IMAGING: Hemoglobin is 8.2, white count 18.1 with BUN of 32, creatinine 0.55. The patient chest x-ray this morning showed diminished pneumothorax on the right side and right-sided chest tube; stable left pneumothorax. DIAGNOSTIC IMPRESSION AND PLAN: Patient with acute respiratory failure which is likely multifactorial in this patient who is status post tracheostomy, PEG tube, with bilateral pneumothorax, status post chest tube placement, now this evening did have a low-grade fever. We will repeat her blood cultures. The patient is currently covered with cefepime; to continue while waiting for the and continue with supportive care. MMODL / IJN: [id number] /
[2020-04-13 23:39] LABS: Glucose,Whole Blood 137 mg/dL (75-99)
[2020-04-14] MEDS ORDERED: ADENOSINE 3 MG/ML 2 ML VIAL IVP ONE (00:39)
[2020-04-14] MEDS: SODIUM CHLORIDE 0.9% 1,000 ML IV SCH ×2 (01:34→05:27)
[2020-04-14 05:18] LABS: Glucose,Whole Blood 138 mg/dL (75-99)
[2020-04-14] MEDS: ARTIFICIAL TEARS-HYPROMELLOSE DROPS 15 ML BTL BOTH EYES SCH ×5 (05:25→19:56)
[2020-04-14] MEDS: methylPREDNISolone SOD SUCCI 125 MG/2 ML VIAL IV SCH ×3 (05:30→17:01)
[2020-04-14] MEDS: INSULIN ASPART (NovoLOG) 100 UNIT/ML VIAL SQ SCH ×3 (05:31→17:54)
[2020-04-14] MEDS: fentaNYL (PF) 2,500 MCG in SODIUM CHLORIDE 0.9% 200 ML IV SCH ×2 (05:46→21:45)
[2020-04-14 06:06] LABS: Anisocytosis Slight; Basophils % (A) 0 %; Eosinophils % (A) 0 %; HCT 27.7 % (34.0-46.0); HGB 7.9 gm/dL (11.4-16.0); Hypochromasia Marked; Lymphocytes # (A) 0.6 k/uL (1.0-4.8); Lymphocytes % (A) 3 %; MCH 22.2 pg (25.0-35.0); MCHC 28.4 g/dL (31.0-37.0); MCV 78.1 fL (80.0-100.0); Mean Platelet Volume 7.5; Microcytosis Slight; Monocytes # (A) 0.7 k/uL (0-1.0); Monocytes % (A) 3 %; Neutrophils # (A) 19.3 k/uL (1.3-7.7); Neutrophils % (A) 94 %; Platelet Count 185 k/uL (150-450); RBC 3.54 m/uL (3.80-5.40); RDW 17.1 % (11.5-15.5); WBC 20.7 k/uL (3.8-10.6)
[2020-04-14 06:30] LABS: ALT 47 U/L (4-34); AST 30 U/L (14-36); African American GFR (CKD) >90 (>60 ml/min/1.73 sqM); Albumin 2.7 g/dL (3.5-5.0); Alkaline Phosphatase 51 U/L (38-126); Blood Urea Nitrogen 32 mg/dL (7-17); Calcium 8.5 mg/dL (8.4-10.2); Chloride 109 mmol/L (98-107); Glucose 136 mg/dL (74-99); Non-African American GFR(CKD) >90 (>60 ml/min/1.73 sqM); Potassium 3.9 mmol/L (3.5-5.1); Sodium 150 mmol/L (137-145); Total Bilirubin 0.3 mg/dL (0.2-1.3); Total Protein 5.5 g/dL (6.3-8.2)
[2020-04-14] MEDS: FERROUS SULFATE 325 MG TAB PO SCH ×2 (06:32→16:32)
[2020-04-14 06:36] LABS: Anion Gap 0 mmol/L
[2020-04-14 06:51] LABS: Carbon Dioxide 41 mmol/L (22-30)
[2020-04-14 08:26] LABS: ABG Base Excess 12.7 mmol/L; ABG Oxygen Saturation 95.7 % (94-97); ABG PH 7.28 (7.35-7.45); ABG PO2 78 mmHg (83-108); ABG TCO2 42 mmol/L (19-24); Allen Test Performed? Yes
--- NOTE | 2020-04-14 08:48 | XR ---
EXAMINATION TYPE: XR chest 1V portable DATE OF EXAM: 04/14/2020 CLINICAL HISTORY: Difficulty breathing progress study. TECHNIQUE: Single AP portable semiupright view of the chest is obtained. COMPARISON: Chest x-ray from one day earlier and older studies. CT chest 6 days ago. FINDINGS: Redemonstration of flexible endotracheal tube. Persistent 2 right sided and single left-si ded chest tubes. Suspected lateral right basilar pneumothorax on most recent x-ray less well seen on current study. Stable small left apical pneumothorax. Pulmonary fibrotic changes bilaterally redemonstrated with multifocal edema and/or infiltrates. Cardi ac silhouette size stable and within normal limits. Osseous structures are intact. IMPRESSION: Pulmonary fibrotic changes along with apical pleural thickening bilaterally redemonstrat ed. Scattered areas of acute infiltrate bilaterally redemonstrated. Findings grossly stable from most recent study. Less well-visualized right-sided basilar pneumothorax on current study. Stable small left apical pneu mothorax despite chest tube placement.
[2020-04-14] MEDS: IPRATROPIUM-ALBUTEROL 3 ML NEB INHALATION SCH ×4 (09:16→23:13)
--- NOTE | 2020-04-14 09:50 | P.PN ---
Subjective Progress Note Date: 04/14/20 This is a 29-year-old female with multiple medical issues including pneumonia, bilateral pneumothorax. Possible sepsis and also history of COPD and asthma. We're asked to see the patient to rule out possibility of endocarditis. A surface echocardiogram was performed which did not reveal any evidence of vegetations or valvular dysfunction. LV function appeared to be normal. At this point there is no evidence of endocarditis from the study. If patient continues to be febrile and has positive blood cultures, further evaluation may be considered. Continue current medical therapy. There is a history that patient is having SVT. So far we have seen only episodes of sinus tachycardia. If SVT is a documented, we can further address. Otherwise patient will follow on when necessary basis. Her prognosis seems to be poor Objective - Vital Signs Vital signs: Vital Signs Temp 99.0 F 04/14/20 05:00 Pulse 122 H 04/14/20 09:28 Resp 31 H 04/14/20 07:00 BP 101/58 04/14/20 07:00 Pulse Ox 99 04/14/20 07:00 Intake & Output 04/13/20 04/14/20 04/14/20 18:59 06:59 18:59 Intake Total 2939.496 8506.973 133 Output Total 1550 1462 125 Balance -251.232 609.973 8 Weight 41 kg Intake: IV 700 1136 100 Pressure bag 36 Sodium Chloride 0.9% 1, 700 1100 100 000 ml @ 100 mls/hr IV . Q10H CRISTHIAN Rx#:[id number] Intake, IV Titration 565.768 383.973 Amount Cefepime 2 gm In Sodium 100 Chloride 0.9% 100 ml @ 25 mls/hr IVPB Q12HR CRISTHIAN Rx #:[id number] Cisatracurium 200 mg In 157.248 81.796 Sodium Chloride 0.9% 180 ml @ 1 MCG/KG/MIN 3.12 mls/hr IV .Q24H CRISTHIAN Rx#: [id number] fentaNYL (PF) 2,500 mcg 208.52 227.557 In Sodium Chloride 0.9% 200 ml @ Per Protocol IV .Q0M CRISTHIAN Rx#:[id number] propofoL 1,000 mg In 100 74.62 Empty Bag 1 bag @ Titrate IV .Q0M CRISTHIAN Rx#: [id number] Tube Feeding 33 462 33 Other 90 Output: Chest Tube Drainage 137 Chest Tube Left 85 Chest Tube Right 45 Chest Tube Right Anterior 7 Chest Urine 1550 1325 125 Stool 0 Other: Voiding Method Indwelling Catheter Indwelling Catheter # Voids 1 1 ABP, PAP, CO, CI - Last Documented Arterial Blood Pressure 135/71 - Exam GENERAL EXAM: Patient is intubated and sedated HEENT: Normocephalic. Normal reaction of pupils, equal size, normal range of extraocular motion. No erythema or exudates in the throat. NECK: No masses, no nuchal rigidity. CHEST: No chest wall deformity. LUNGS: Diffuse rhonchi HEART: S1 and S2 normal. No definite murmurs heard ABDOMEN: No hepatosplenomegaly, normal bowel sounds, no guarding or rigidity. SKIN: No rashes CENTRAL NERVOUS SYSTEM: Deferred EXTREMITIES: No cyanosis, clubbing or edema. - Labs CBC & Chem 7: 04/14/20 05:15 04/14/20 05:15 Labs: Abnormal Lab Results - Last 24 Hours (Table) 04/13/20 04/13/20 04/13/20 Range/Units 11:15 17:16 23:37 WBC (3.8-10.6) k/uL RBC (3.80-5.40) m/uL Hgb (11.4-16.0) gm/dL Hct (34.0-46.0) % MCV (80.0-100.0) fL MCH (25.0-35.0) pg MCHC (31.0-37.0) g/dL RDW (11.5-15.5) % Neutrophils # (1.3-7.7) k/uL Lymphocytes # (1.0-4.8) k/uL ABG pH (7.35-7.45) ABG pCO2 (35-45) mmHg ABG pO2 (83-108) mmHg ABG HCO3 (21-25) mmol/L ABG Total CO2 (19-24) mmol/L Sodium (137-145) mmol/L Chloride (98-107) mmol/L Carbon Dioxide (22-30) mmol/L BUN (7-17) mg/dL Glucose (74-99) mg/dL POC Glucose (mg/dL) 122 H 146 H 137 H (75-99) mg/dL ALT (4-34) U/L Total Protein (6.3-8.2) g/dL Albumin (3.5-5.0) g/dL 04/14/20 04/14/20 04/14/20 Range/Units 05:15 05:15 05:16 WBC 20.7 H (3.8-10.6) k/uL RBC 3.54 L (3.80-5.40) m/uL Hgb 7.9 L (11.4-16.0) gm/dL Hct 27.7 L (34.0-46.0) % MCV 78.1 L (80.0-100.0) fL MCH 22.2 L (25.0-35.0) pg MCHC 28.4 L (31.0-37.0) g/dL RDW 17.1 H (11.5-15.5) % Neutrophils # 19.3 H (1.3-7.7) k/uL Lymphocytes # 0.6 L (1.0-4.8) k/uL ABG pH (7.35-7.45) ABG pCO2 (35-45) mmHg ABG pO2 (83-108) mmHg ABG HCO3 (21-25) mmol/L ABG Total CO2 (19-24) mmol/L Sodium 150 H (137-145) mmol/L Chloride 109 H (98-107) mmol/L Carbon Dioxide 41 H* (22-30) mmol/L BUN 32 H (7-17) mg/dL Glucose 136 H (74-99) mg/dL POC Glucose (mg/dL) 138 H (75-99) mg/dL ALT 47 H (4-34) U/L Total Protein 5.5 L (6.3-8.2) g/dL Albumin 2.7 L (3.5-5.0) g/dL 04/14/20 Range/Units 08:24 WBC (3.8-10.6) k/uL RBC (3.80-5.40) m/uL Hgb (11.4-16.0) gm/dL Hct (34.0-46.0) % MCV (80.0-100.0) fL MCH (25.0-35.0) pg MCHC (31.0-37.0) g/dL RDW (11.5-15.5) % Neutrophils # (1.3-7.7) k/uL Lymphocytes # (1.0-4.8) k/uL ABG pH 7.28 L (7.35-7.45) ABG pCO2 85 H* (35-45) mmHg ABG pO2 78 L (83-108) mmHg ABG HCO3 40 H* (21-25) mmol/L ABG Total CO2 42 H (19-24) mmol/L Sodium (137-145) mmol/L Chloride (98-107) mmol/L Carbon Dioxide (22-30) mmol/L BUN (7-17) mg/dL Glucose (74-99) mg/dL POC Glucose (mg/dL) (75-99) mg/dL ALT (4-34) U/L Total Protein (6.3-8.2) g/dL Albumin (3.5-5.0) g/dL Assessment and Plan (1) Asthma with acute exacerbation Current Visit: Yes Status: Acute Code(s): J45.901 - UNSPECIFIED ASTHMA WITH (ACUTE) EXACERBATION SNOMED Code(s): 765130996 (2) Pneumonia Current Visit: Yes Status: Acute Code(s): J18.9 - PNEUMONIA, UNSPECIFIED ORGANISM SNOMED Code(s): 141062764 (3) Sepsis Current Visit: Yes Status: Acute Code(s): A41.9 - SEPSIS, UNSPECIFIED ORGANISM SNOMED Code(s): 83735205 (4) IV drug user Current Visit: No Status: Acute Code(s): F19.90 - OTHER PSYCHOACTIVE SUBSTANCE USE, UNSPECIFIED, UNCOMPLICATED SNOMED Code(s): 847518186 Plan: At this point, from transthoracic echo study, There doesn't appear to be any evidence of vegetation or endocarditis. No evidence of any valvular dysfunction. Continue current medical therapy. If patient continues to be febrile and has any positive blood cultures, further evaluation could be considered.
--- NOTE | 2020-04-14 10:00 | ECHOF ---
Referral Reason:re-evaluate for vegetation and valve function MEASUREMENTS -------- HEIGHT: 152.4 cm WEIGHT: 40.8 kg BP: 119/55 IVSd: 1.0 cm (0.6 - 1.1) LVIDd: 3.2 cm (3.9 - 5.3) LVPWd: 1.0 cm (0.6 - 1.1) EDV(Teich): 41 ml IVSs: 1.0 cm LVIDs: 1.9 cm LVPWs: 1.5 cm %IVS Thck: -1 % ESV(Teich): 12 ml EF(Teich): 72 % %FS: 40 % SV(Teich): 29 ml TR Vmax: 2.93 m/s TR maxP.30 mmHg RAP: 5.00 mmHg RVSP: 39.30 mmHg FINDINGS -------- Resting tachycardia (HR>100bpm). No vegetation seen on this study Limited Study The left ventricular size is normal. Left ventricular wall thickness is normal. Overall left vent ricular systolic function is normal with, an EF between 55 - 60 %. There is no evidence of aortic regurgitation. There is no evidence of aortic stenosis. There is trace mitral regurgitation. Mild tricuspid regurgitation present. There is mild pulmonary hypertension. The right ventricular systolic pressure, as measured by Doppler, is 39.30mmHg. There is no pulmonic regurgitation present. There is no pericardial effusion. CONCLUSIONS -------- 1. No vegetation seen on this study 2. The left ventricular size is normal. 3. Left ventricular wall thickness is normal. 4. Overall left ventricular systolic function is normal with, an EF between 55 - 60 %. 5. There is trace mitral regurgitation. 6. Mild tricuspid regurgitation present. 7. There is mild pulmonary hypertension. 8. The right ventricular systolic pressure, as measured by Doppler, is 39.30mmHg. SURVEILLANCE INVESTIGATOR: Sakina Lopez RDCS
--- NOTE | 2020-04-14 10:05 | P.PN ---
Subjective Progress Note Date: 04/14/20 Principal diagnosis: Bilateral pneumothorax. 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 Status post right pleural chest tube placement 2 and left pleural chest tube 1. The patient was seen in follow-up today at her bedside in the intensive care unit. She remains sedated with Diprivan and fentanyl drips and is on Nimbex. Her trach is midline with mechanical ventilator support. Bedside telemetry showing sinus tachycardia heart rate 111 BPM. A chest x-ray was completed yesterday which showed a subtle increase in her right-sided pneumothorax, subsequently due to the increase in the size of the right-sided pneumothorax a second right pleural chest tube was placed by Dr. Jimenez from pulmonary critical care medicine. Today's chest x-ray shows a last visualized right-sided nasal or pneumothorax with the 2 right pleural chest tubes in place. Left pleural chest tube remains in place and the x-ray shows a stable small left apical pneumothorax. No air leak is present on the chest tubes. Oxygen saturation are 96% with mechanical ventilator support, current mechanical ventilator settings are as follows, assist control 30, TV 250, FiO2 35% and PEEP of 5. Objective - Vital Signs Vital signs: Vital Signs Temp 99.0 F 04/14/20 05:00 Pulse 115 H 04/14/20 07:00 Resp 31 H 04/14/20 07:00 BP 101/58 04/14/20 07:00 Pulse Ox 99 04/14/20 07:00 Intake & Output 04/13/20 04/14/20 04/14/20 18:59 06:59 18:59 Intake Total 3601.466 9662.973 133 Output Total 1550 1462 125 Balance -251.232 609.973 8 Weight 41 kg Intake: IV 700 1136 100 Pressure bag 36 Sodium Chloride 0.9% 1, 700 1100 100 000 ml @ 100 mls/hr IV . Q10H [facility] Rx#:[id number] Intake, IV Titration 565.768 383.973 Amount Cefepime 2 gm In Sodium 100 Chloride 0.9% 100 ml @ 25 mls/hr IVPB Q12HR [facility] Rx #:[id number] Cisatracurium 200 mg In 157.248 81.796 Sodium Chloride 0.9% 180 ml @ 1 MCG/KG/MIN 3.12 mls/hr IV .Q24H [facility] Rx#: [id number] fentaNYL (PF) 2,500 mcg 208.52 227.557 In Sodium Chloride 0.9% 200 ml @ Per Protocol IV .Q0M [facility] Rx#:[id number] propofoL 1,000 mg In 100 74.62 Empty Bag 1 bag @ Titrate IV .Q0M [facility] Rx#: [id number] Tube Feeding 33 462 33 Other 90 Output: Chest Tube Drainage 137 Chest Tube Left 85 Chest Tube Right 45 Chest Tube Right Anterior 7 Chest Urine 1550 1325 125 Stool 0 Other: Voiding Method Indwelling Catheter Indwelling Catheter # Voids 1 1 ABP, PAP, CO, CI - Last Documented Arterial Blood Pressure 135/71 - Constitutional Constitutional Comment(s): Sedated on Diprivan and fentanyl drips. Emaciated. - EENT Eyes: Present: poor dentition, normal appearance. Absent: scleral icterus - Neck Details: Neck is supple, no JVD. - Respiratory Details: Lung sounds diminished throughout with some few expiratory wheezes. No crackles or rhonchi. Respirations are symmetrical and nonlabored with mechanical ventilator support. Trachea is midline. Oxygen saturation 96% with mechanical ventilator support. - Cardiovascular Details: Regular rhythm and tachycardic rate. S1 and S2 present, negative for S3, gallop or murmur. No edema present. Sequential compression devices in place for bilateral lower extremities. - Gastrointestinal Gastrointestinal Comment(s): Abdomen is soft, nontender and nondistended. PEG tube in place. Active bowel sounds all 4 abdominal quadrants. - Genitourinary Genitourinary Comment(s): Ac catheter for accurate I&O. - Integumentary Integumentary Comment(s): Skin is warm and dry. No clubbing or cyanosis is present. Multiple Tattoos. - Neurologic Neurologic Comment(s): Unable to assess as patient is sedated on propofol and fentanyl. Also on Nimbex. - Musculoskeletal Musculoskeletal Comment(s): Unable to assess as patient is sedated on propofol and fentanyl. Also on Nimbex. - Psychiatric Psychiatric Comment(s): Unable to assess as patient is sedated on propofol and fentanyl. Also on Nimbex. - Allied health notes Allied health notes reviewed: nursing - Labs CBC & Chem 7: 04/14/20 05:15 04/14/20 05:15 Labs: Abnormal Lab Results - Last 24 Hours (Table) 04/13/20 04/13/20 04/13/20 Range/Units 11:15 17:16 23:37 WBC (3.8-10.6) k/uL RBC (3.80-5.40) m/uL Hgb (11.4-16.0) gm/dL Hct (34.0-46.0) % MCV (80.0-100.0) fL MCH (25.0-35.0) pg MCHC (31.0-37.0) g/dL RDW (11.5-15.5) % Neutrophils # (1.3-7.7) k/uL Lymphocytes # (1.0-4.8) k/uL ABG pH (7.35-7.45) ABG pCO2 (35-45) mmHg ABG pO2 (83-108) mmHg ABG HCO3 (21-25) mmol/L ABG Total CO2 (19-24) mmol/L Sodium (137-145) mmol/L Chloride (98-107) mmol/L Carbon Dioxide (22-30) mmol/L BUN (7-17) mg/dL Glucose (74-99) mg/dL POC Glucose (mg/dL) 122 H 146 H 137 H (75-99) mg/dL ALT (4-34) U/L Total Protein (6.3-8.2) g/dL Albumin (3.5-5.0) g/dL 04/14/20 04/14/20 04/14/20 Range/Units 05:15 05:15 05:16 WBC 20.7 H (3.8-10.6) k/uL RBC 3.54 L (3.80-5.40) m/uL Hgb 7.9 L (11.4-16.0) gm/dL Hct 27.7 L (34.0-46.0) % MCV 78.1 L (80.0-100.0) fL MCH 22.2 L (25.0-35.0) pg MCHC 28.4 L (31.0-37.0) g/dL RDW 17.1 H (11.5-15.5) % Neutrophils # 19.3 H (1.3-7.7) k/uL Lymphocytes # 0.6 L (1.0-4.8) k/uL ABG pH (7.35-7.45) ABG pCO2 (35-45) mmHg ABG pO2 (83-108) mmHg ABG HCO3 (21-25) mmol/L ABG Total CO2 (19-24) mmol/L Sodium 150 H (137-145) mmol/L Chloride 109 H (98-107) mmol/L Carbon Dioxide 41 H* (22-30) mmol/L BUN 32 H (7-17) mg/dL Glucose 136 H (74-99) mg/dL POC Glucose (mg/dL) 138 H (75-99) mg/dL ALT 47 H (4-34) U/L Total Protein 5.5 L (6.3-8.2) g/dL Albumin 2.7 L (3.5-5.0) g/dL 04/14/20 Range/Units 08:24 WBC (3.8-10.6) k/uL RBC (3.80-5.40) m/uL Hgb (11.4-16.0) gm/dL Hct (34.0-46.0) % MCV (80.0-100.0) fL MCH (25.0-35.0) pg MCHC (31.0-37.0) g/dL RDW (11.5-15.5) % Neutrophils # (1.3-7.7) k/uL Lymphocytes # (1.0-4.8) k/uL ABG pH 7.28 L (7.35-7.45) ABG pCO2 85 H* (35-45) mmHg ABG pO2 78 L (83-108) mmHg ABG HCO3 40 H* (21-25) mmol/L ABG Total CO2 42 H (19-24) mmol/L Sodium (137-145) mmol/L Chloride (98-107) mmol/L Carbon Dioxide (22-30) mmol/L BUN (7-17) mg/dL Glucose (74-99) mg/dL POC Glucose (mg/dL) (75-99) mg/dL ALT (4-34) U/L Total Protein (6.3-8.2) g/dL Albumin (3.5-5.0) g/dL - Imaging and Cardiology Chest x-ray: report reviewed, image reviewed Assessment and Plan Assessment: 1. Bilateral pneumothoraces, secondary to barotrauma, status post right and left chest tube placement 2. Acute hypoxic respiratory failure requiring intubation with mechanical ventilator support. Status post tracheostomy placement by general surgery 3. Acute exacerbation of COPD 4. History of IV drug abuse 5. History of seizure disorder 6. Generalized anxiety disorder 7. Remote history of acute lymphocytic leukemia, status post chemotherapy treatments, currently in remission 8. Severe malnutrition 9. History of deep vein thrombosis Plan: 1. Continue right and left pleural chest tubes to low continuous wall suction - 20 cm H2O. No air leak is present. Continue to monitor for pneumothorax resolution. 2. Critical care management per Dr. Jimenez's recommendations. 3. DVT and GI prophylaxis. 4. More recommendations to follow based on patient's clinical course. I have seen and examined the patient and agree with the assessment and plan as dictated by my nurse practitioner. Time with Patient: Greater than 30
--- NOTE | 2020-04-14 12:12 | P.PN ---
Progress Note - Text Progress Note Date: 04/14/20 The patient remained stable on the ventilator. Her tracheostomy site is clean Patient will continue receive supportive care
[2020-04-14 12:20] LABS: Glucose,Whole Blood 127 mg/dL (75-99)
[2020-04-14] MEDS: NOREPINEPHRINE 32 MG in SODIUM CHLORIDE 0.9% 218 ML IV SCH (12:30)
[2020-04-14] MEDS: CEFEPIME 2 GM in SODIUM CHLORIDE 0.9% 100 ML IVPB SCH ×2 (12:45→19:57)
[2020-04-14] MEDS: CHLORHEXIDINE GLUCONATE 15 ML CUP MUCOUS MEM SCH ×2 (12:46→19:58)
[2020-04-14] MEDS: ENOXAPARIN 40 MG/0.4 ML SYRINGE SQ SCH (12:46)
[2020-04-14] MEDS: FAMOTIDINE 20 MG/2 ML VIAL IV SCH ×2 (12:46→19:58)
[2020-04-14] MEDS: busPIRone HCl 5 MG TAB PO SCH (12:47)
[2020-04-14] MEDS: DEXTROSE 5% IN WATER 1,000 ML IV SCH ×2 (12:49→17:01)
[2020-04-14] MEDS: ACETAMINOPHEN TAB 325 MG TAB PO PRN (13:07)
--- NOTE | 2020-04-14 15:39 | P.PN ---
Subjective Progress Note Date: 04/14/20 Principal diagnosis: Acute hypoxic respiratory failure secondary to bilateral pneumonia and bilateral pneumothoraces. And Underlying severe COPD 04/04/2020 the patient is being seen for a follow-up. The patient is going to undergo bronchoscopy today. I was able to obtain records from the hospital as the [facility] and at that time the patient was hospitalized for rae ateral pneumonia. CAT scan of the chest findings were similar to the ones that he had he [facility]. The patient underwent further investigation including alpha-1 antitrypsin level came back within normal, cystic fibrosis mutation screen that came back negative, HIV screen that came back negative, fungal screen including Histoplasma urine antigen, cryptococcal serum antigen and Aspergillus antibodies and all of these were negative. For now, the patient is scheduled to undergo bronchoscopy and bronchial lavage. Echocardiogram showed no evidence of any valvular disease or vegetations. She is still short of breath and she has increased dyspnea cough chest tightness and wheezing. No significant sputum production. On 04/05/2020, the patient is in intensive care unit. Mother the patient underwent a bronchoscopy and bronchial lavage yesterday and the procedure was essentially uncomplicated. 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 At that point, the emergency team was called and the patient was evaluated twice. During the second evaluation, chest x-ray was done and the patient was found to have diffuse but the pulmonary infiltrates in addition to hypoxic respiratory failure. The patient was started on a BiPAP at a pressure of 12/5 with an FiO2 of 60% and the patient got transferred to the ICU. She was also given a dose of Lasix. She started producing adequate amount of urine output. Nevertheless, she continued to have agonal breathing, low tidal volume and increased tachypnea with impending signs of respiratory failure even while being on a BiPAP. At that point, I made a decision to intubate the patient in intensive care unit. The patient was intubated by #8 orotracheal tube. She was placed on a mechanical ventilator. A triple lumen catheter was established. An outlying catheter was also established. The post intubation blood gas showed a pH of 7.25 with a pCO2 of 87 pO2 of 386 and this was done on assist control mode at the rate of 20 with tidal volume of 350 and FiO2 of 100% with a PEEP of 5. FiO2 is down to 50%. The patient at this point in time is sedated with propofol and the patient is calm and comfortable. Fentanyl was also added to improve for sedation while being a mechanical ventilator. Results of the bronchioloalveolar lavage is still negative. No microbial growth. The patient remains on a combination of IV cefepime and vancomycin. The post intubation chest x-ray showed bilateral pleural thickening and bilateral airspace disease seen although somewhat improved compared to the earlier chest x-rays. ET tube was around 1 cm above the sandra. Blood work from this morning showed a hemoglobin of 7.2. White cell count of 15.8. Aggressive the blood work essentially within normal limits. On 04/06/2020, the patient remains intubated on a mechanical. On today's evaluation the patient is on propofol running at 50 g per KG per minute. The patient is also on fentanyl drip at 3 g per KG per minute. IV fluids at KVO and the patient is on levo fed at 0.1 mg per KG per minute. The patient remains on mechanical ventilator on assist control mode at the rate of 24 with a tidal volume loss was 75 with an FiO2 of 50% and PEEP of 5. Peak airway pressure 37. Plateau airway pressure is 35. Patient is receiving tube feed with vital high protein at the rate of 10 mL an hour and the patient will be advanced to goal. The bronchioloalveolar lavage that was done earlier came back negative for any microbial growth. A chest x-ray from today shows some improvement and by the pulmonary infiltrate that was established on yesterday's chest x-ray. The patient remains on a combination of cefepime and vancomycin. Lasix will be restarted. No other significant events otherwise for now. She is requiring norepinephrine infusion for blood pressure control. Echocardiogram at shown a preserved LV function without any significant LV dysfunction. Triple lumen catheter has been established and have right femoral vein. She also has an arterial line catheter. I was concerned about elevated airway pressures in this patient. Unable to ventilate with a higher volumes as the patient's pressure will go significantly high. I switch this patient to a pressure control mode of ventilation. 04/07/2020, the patient is being seen for follow-up. The patient remains intubated on a mechanical ventilator. The patient is on assist control ventilation and on today's evaluation the patient is on a pressure control of 30 with a PEEP of 5 and FiO2 of 50% with a rate of 34. The blood gases from today showed a pH of 7.47 with a pCO2 of 69 a pO2 of 168 and a follow-up chest x-ray from today showed improvement in the bilateral pulmonary infiltrates. Nevertheless, there was a note of a right-sided pneumothorax. Based on this, a CAT scan of the chest was done to confirm the findings and the patient did have a right-sided pneumothorax there was moderate in size in addition to bilateral diffuse bilateral a disease and small bilateral pleural effusions. At that point, a 24-Pakistani chest tube was inserted in the right hemithorax and a follow- up chest x-ray is pending for now. The patient remains hemodynamically stable and there was no evidence of any tension due to this pneumothorax. I also did some ventilator changes. I dropped the pressure control down to 20 and dropped a respiratory rate down to 24 and drop the FiO2 down to 40%. A repeat blood gases was done and the repeat blood gases showed a pH of 7.37 with a pCO2 of 89 pO2 of 95. The patient's white cell count of 10.4 with hemoglobin of 7.2. The rest of the blood work and electrodes with a component of metabolic alkalosis with a serum bicarb of 50 and a sodium of 141. The patient remains on broad- spectrum antibiotics. Vancomycin was discontinued as the patient's bronchial alveolar lavage did not reveal any microbial growth and I'm going to keep this patient only on cefepime for now. The patient remains sedated with a combination of fentanyl erythematous events per KG per minute and for prophylaxis for microvascular KG per minute. The patient is also being diuresis with Lasix at a dose of 20 mg IV push every 12 hours. The patient is on vital high protein at the rate of 30 mL an hour. 04/08/2020, the patient remains intubated on a mechanical ventilator. Unfortunately, she continues to have a small right-sided pneumothorax despite a chest tube insertion. The air leak from the right-sided chest tube is minimal at this point in time and output is minimal. The patient is extremely debilitated. 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 She has advanced COPD with chronic lung disease. She is currently on a pressure control mode of ventilation with a pressure control of 20 with an FiO2 of 40% with a PEEP of 5 and the rate of 24. The blood gases showed a pH of 7.43 with a pCO2 of 84 and pO2 of 111. The peak airway pressure 33. The static airway pressure is 27. The patient remains sedated with propofol at the rate of 50 g per KG per minute and fentanyl is running at a rate of 3 g per KG per minute. Norepinephrine is running at 0.02 g per KG per minute. Cultures from the bronchioloalveolar lavage has been negative and the patient is still on cefepime as a broad-spectrum antibiotic coverage for now. She is being diuresed with IV Lasix at a dose of 20 mg IV push every 12 hours. The dose of Lasix will be tapered as the patient has been adequate fluid balance. The chest x-ray findings shows improvement and by the pulmonary infiltrates. There is however a stable loculated right-sided pneumothorax and the right-sided chest tube is in good location. ET tube is in good location. The patient was started on enteral feeding for nutritional support. I'm very much convinced that the patient would benefit from a PEG and trach as the patient has advanced lung disease and she is quite debilitated and malnourished at this young age. On a separate note, earlier this morning the patient went into a bout of an SVT with a heart rate of 160. The patient was given 2 doses o f IV Rocephin, 6 mg and 12 mg without success. Her heart rate gradually is improving at this point in time and over the next few hours, the patient's heart rate dropped down to 112 Reevaluated today on 04/09/20, patient remains intubated and mechanically ventilated. She is on pressure control mode of mechanical ventilation, pressure control is set at 24, inspiratory time is 0.65 seconds patient is on 40% FiO2 and PEEP of 5. She was intubated on 04/05/20, she is on propofol at 50 mcg/kg/m, fentanyl at 3 mcg/kg/h, she is also on norepinephrine at 0.01 mcg/kg/m. IV fluid is at 20 mL per hour. Patient has a right femoral triple- lumen catheter. Right radial arterial line. Right-sided chest tube with air leak noted. And today she ended up with a left-sided chest tube for left-sided pneumothorax which was noted on the chest x-ray earlier today. Patient is on tube feeding vital Hb 53 mL/h and this is the goal is also on cefepime empirically. ABG today showed a pO2 of 148 pCO2 of 74 pH of 7.34. WBC count is 7.6 hemoglobin is 7.8. Electrolytes and renal profile are normal. Bicarb is 39. This morning chest x-ray showed left-sided pneumothorax which is a new hence I went ahead and placed a left sided chest tube 28 [place] chest tube was placed since the patient is on mechanical ventilation. Not much changes noted in the pneumothorax after the chest tube placement Reevaluated today on 04/10/20, patient remains intubated and mechanically ventilated ventilator settings are pressure control set at 26, FiO2 is 35%, PEEP is at 5, inspiratory time is 0.70 and the rate is 24. Patient seems to be doing better today, better and adequate tidal volumes noted, just over 300 mL tidal volumes. Chest x-ray continues to show bilateral pneumothoraces secondary to barotrauma. Chest tubes are both in place. ABG today showed a pO2 of 211 pCO2 of 57 pH of 7.40, hence I cut down the FiO2 to 35%. Both tubes continued to have intermittent leaks. Patient is on fentanyl which I cut down to 1 mcg/kg/h and she is on propofol at 50. IV fluids at KVO, patient is do not feeding at present mostly because she is scheduled to undergo a PEG tube placement and tracheostomy today. CBC is relatively normal except for hemoglobin of 8.1. Electrolytes showed a sodium of 147 bicarb history renal profile is normal Reevaluated today on 04/11/20, patient remains in the ICU, intubated and m echanically ventilated. Patient remains on assist control rate of 30 tidal volume is 250 FiO2 is 40% and PEEP of 5. ABG today showed a pO2 of 139 pCO2 of 81 pH of 7.27. Chest x-ray continues to show bilateral pneumothoraces, not expanding, unchanged. Continues to have 2 bilateral chest tubes. One every hour side. Continues to have some air leak in the right-sided chest tube, and intermittent leak in the left sided chest tube. Patient remains on propofol at 50 mcg/kg/m, she is also on fentanyl at 50 mcg/kg/m, Nimbex at 1 mcg/kg/m, IV fluid is at KVO. Patient is also on enteral feeding. Yesterday the patient was switched from pressure control to assist control mode of mechanical ventilation. And that seems to be working better for the patient today. Gases are actually a bit improving. Patient is scheduled to undergo tracheostomy and PEG tube placement today. CBC showed WBC count of 10 hemoglobin of 8.7 hematocrit of 30.6. Her sodium seems to be high today at 152 hence the patient will be placed on free water via nasogastric tube, and we'll switch her IV fluid to D5W. Will discontinue Lasix. Reevaluated today on 04/12/20, patient remains in the ICU, intubated, dural mechanic ally ventilated, she is now on assist control mode of mechanical ventilation, rate is 30, FiO2 is 35%, PEEP is 5 and tidal volume is 250. I did cut down the rate down to 26, decrease the flow to 65 L/m, ABG showed a pO2 of 119 pCO2 of 71 pH of 7.37. Patient is on Nimbex, propofol at 50 mcg/kg/m, fentanyl, and her IV fluid is D5W at 100 mL per hour. Patient went off Nimbex earlier today, however she was noted to be more tachypneic, tachycardic, has had to be placed back on Nimbex to adequately ventilate the patient. Portable chest x-ray showed basically no change, continues to have bilateral chest tubes, and her bilateral pneumothoraces are unchanged. Basic metabolic profile today is normal bicarb is 43. Renal profile is normal WBC count is 17.1 hemoglobin is 8.2 hematocrit is 30.1. Reevaluated today on 04/13/20, patient remains in the ICU, intubated and mechanically ventilated. Remains basically on the same ventilator settings assist control rate of 30, tidal volume is 250 rate is 30, FiO2 is 35%, and PEEP is 5. ABG earlier today showed a pO2 of 105 pCO2 of 80 9H of 7.23, and based on that ABG, assist control rate was increased. Patient remains on fentanyl, propofol, Nimbex, and her follow-up chest x-ray today showed persistent low relatively large right-sided pneumothorax,, thoracic surgery was consulted, and recommended another chest tube to be placed. Went ahead and placed another right-sided chest tube, definite improvement noted in the right-sided pneumothorax, but did not completely resolved. Multiple attempts were made to discontinue Nimbex, however the patient gets extremely agitated, tachypneic and tachycardic, and gets to the point where it is extremely difficult to ventilate the patient. Hence lay's back on Nimbex again today after a trial of weaning from Nimbex. Electrolytes were noted to be normal. Renal profile is normal. WBC count is 18.1 hemoglobin is 8.2. Reevaluated today on 04/14/20, patient remains intubated and mechanically jake tilated. Her ventilator settings are assist control rate of 30 and I increased that to 32. Tidal volume remains at 250, FiO2 35% and PEEP of 5. ABG this morning showed a pO2 of 77 pCO2 of 85 pH of 7.27. Patient had episodes of fever last night, tachycardic, and had episodes of supraventricular tachycardia, had to be Ambu bag at night but presently back on mechanical ventilation. Ask cardiology to evaluate the patient for possible endocarditis, previous transthoracic echocardiogram was nondiagnostic for endocarditis labs today showed elevated sodium of 150 potassium 3.9 chloride 109 bicarb is 41 BUN is 32 creatinine 0.5. WBC count is 20.7 hemoglobin is 7.9. Platelets are normal. Chest x-ray showed some pulmonary fibrotic changes with apical pleural thickening, the right-sided pneumothorax is definitely less, continues to have a small left apical pneumothorax despite chest tube placement. Intermittent air leak is noted in the second right sided chest tube. Objective - Vital Signs Vital signs: Vital Signs Temp 101.5 F H 04/14/20 12:00 Pulse 121 H 04/14/20 13:00 Resp 32 H 04/14/20 13:00 BP 110/61 04/14/20 13:00 Pulse Ox 94 L 04/14/20 13:00 Intake & Output 04/13/20 04/14/20 04/14/20 18:59 06:59 18:59 Intake Total 1638.554 0404.973 133 Output Total 1550 1462 125 Balance -251.232 609.973 8 Weight 41 kg Intake: IV 700 1136 100 Pressure bag 36 Sodium Chloride 0.9% 1, 700 1100 100 000 ml @ 100 mls/hr IV . Q10H [facility] Rx#:[id number] Intake, IV Titration 565.768 383.973 Amount Cefepime 2 gm In Sodium 100 Chloride 0.9% 100 ml @ 25 mls/hr IVPB Q12HR [facility] Rx #:[id number] Cisatracurium 200 mg In 157.248 81.796 Sodium Chloride 0.9% 180 ml @ 1 MCG/KG/MIN 3.12 mls/hr IV .Q24H [facility] Rx#: [id number] fentaNYL (PF) 2,500 mcg 208.52 227.557 In Sodium Chloride 0.9% 200 ml @ Per Protocol IV .Q0M [facility] Rx#:[id number] propofoL 1,000 mg In 100 74.62 Empty Bag 1 bag @ Titrate IV .Q0M [facility] Rx#: [id number] Tube Feeding 33 462 33 Other 90 Output: Chest Tube Drainage 137 Chest Tube Left 85 Chest Tube Right 45 Chest Tube Right Anterior 7 Chest Urine 1550 1325 125 Stool 0 Other: Voiding Method Indwelling Catheter Indwelling Catheter # Voids 1 1 ABP, PAP, CO, CI - Last Documented Arterial Blood Pressure 136/64 - Exam atient thinking cachectic female patient, she looks quite emaciated. She has multiple tattoos. Intubated and mechanically ventilated. Head atraumatic, normocephalic. HEENT: PERRLA, EOMI, neck, no neck masses, no JVD, no stridor.. CHEST EXAMINATION: Trachea is central. Symmetrical expansion.bilateral diminished air entry and wheezing. 2 right-sided chest tubes noted and 1 left- sided chest tube is noted. CARDIAC: Normal S1, S2 with no gallops. No murmurs ABDOMEN: Soft. Bowel sounds normal. No organomegaly. No abdominal bruits. Extremities: reveal no edema. No clubbing or cyanosis Neurologically sedated, opens eyes to painful stimuli, could not be fully assessed. Skin: No rash or skin lesions. Psychiatric: Could not assess. Patient is sedated Musculoskeletal: Significant muscle wasting noted bilaterally and the patient is extremely frail - Labs CBC & Chem 7: 04/14/20 05:15 04/14/20 05:15 Labs: Abnormal Lab Results - Last 24 Hours (Table) 04/13/20 04/13/20 04/14/20 Range/Units 17:16 23:37 05:15 WBC 20.7 H (3.8-10.6) k/uL RBC 3.54 L (3.80-5.40) m/uL Hgb 7.9 L (11.4-16.0) gm/dL Hct 27.7 L (34.0-46.0) % MCV 78.1 L (80.0-100.0) fL MCH 22.2 L (25.0-35.0) pg MCHC 28.4 L (31.0-37.0) g/dL RDW 17.1 H (11.5-15.5) % Neutrophils # 19.3 H (1.3-7.7) k/uL Lymphocytes # 0.6 L (1.0-4.8) k/uL ABG pH (7.35-7.45) ABG pCO2 (35-45) mmHg ABG pO2 (83-108) mmHg ABG HCO3 (21-25) mmol/L ABG Total CO2 (19-24) mmol/L Sodium (137-145) mmol/L Chloride (98-107) mmol/L Carbon Dioxide (22-30) mmol/L BUN (7-17) mg/dL Glucose (74-99) mg/dL POC Glucose (mg/dL) 146 H 137 H (75-99) mg/dL ALT (4-34) U/L Total Protein (6.3-8.2) g/dL Albumin (3.5-5.0) g/dL 04/14/20 04/14/20 04/14/20 Range/Units 05:15 05:16 08:24 WBC (3.8-10.6) k/uL RBC (3.80-5.40) m/uL Hgb (11.4-16.0) gm/dL Hct (34.0-46.0) % MCV (80.0-100.0) fL MCH (25.0-35.0) pg MCHC (31.0-37.0) g/dL RDW (11.5-15.5) % Neutrophils # (1.3-7.7) k/uL Lymphocytes # (1.0-4.8) k/uL ABG pH 7.28 L (7.35-7.45) ABG pCO2 85 H* (35-45) mmHg ABG pO2 78 L (83-108) mmHg ABG HCO3 40 H* (21-25) mmol/L ABG Total CO2 42 H (19-24) mmol/L Sodium 150 H (137-145) mmol/L Chloride 109 H (98-107) mmol/L Carbon Dioxide 41 H* (22-30) mmol/L BUN 32 H (7-17) mg/dL Glucose 136 H (74-99) mg/dL POC Glucose (mg/dL) 138 H (75-99) mg/dL ALT 47 H (4-34) U/L Total Protein 5.5 L (6.3-8.2) g/dL Albumin 2.7 L (3.5-5.0) g/dL 04/14/20 Range/Units 12:18 WBC (3.8-10.6) k/uL RBC (3.80-5.40) m/uL Hgb (11.4-16.0) gm/dL Hct (34.0-46.0) % MCV (80.0-100.0) fL MCH (25.0-35.0) pg MCHC (31.0-37.0) g/dL RDW (11.5-15.5) % Neutrophils # (1.3-7.7) k/uL Lymphocytes # (1.0-4.8) k/uL ABG pH (7.35-7.45) ABG pCO2 (35-45) mmHg ABG pO2 (83-108) mmHg ABG HCO3 (21-25) mmol/L ABG Total CO2 (19-24) mmol/L Sodium (137-145) mmol/L Chloride (98-107) mmol/L Carbon Dioxide (22-30) mmol/L BUN (7-17) mg/dL Glucose (74-99) mg/dL POC Glucose (mg/dL) 127 H (75-99) mg/dL ALT (4-34) U/L Total Protein (6.3-8.2) g/dL Albumin (3.5-5.0) g/dL Assessment and Plan Assessment: Impression: Acute hypoxic respiratory failure with bilateral infiltrates, improving Acute exacerbation of COPD. Bilateral pneumothoraces secondary to barotrauma. Status post placement of a left and 2 right-sided chest tubes for bilateral p neumothoraces. History of IV drug abuse. History of seizure disorder. Generalized anxiety disorder. Remote history of acute lymphocytic leukemia, in remission. Severe malnutrition, BMI is 20.3, this is protein calorie malnutrition, severe in nature. Chronic hypercapnic respiratory failure with metabolic compensation. Hypernatremia with free water deficit, improving with free water given. Remains on IV fluid in the form of D5W at 150 mL per hour Status post tracheostomy and PEG tube placement on 04/11/20. Recommendation: Continue present supportive care measures. Continue ventilatory support. Continue nutritional support. Continue antibiotics. Continue bronchodilators and IV Solu-Medrol. Continue PEG tube feeding Continue Nimbex, fentanyl, and propofol. Continue GI and DVT prophylaxis. Continue D5W. At 1 50 mL per hour. Prognosis is poor, Critical care time is over 30, minutes. Time with Patient: Greater than 30
[2020-04-14 17:23] LABS: Glucose,Whole Blood 166 mg/dL (75-99)
--- NOTE | 2020-04-14 23:27 | PN ---
PROGRESS NOTE DATE OF SERVICE: 04/14/2020 REASON FOR FOLLOWUP: Pneumonia. INTERVAL HISTORY: the patient is currently afebrile. The patient is hemodynamically stable, not on pressor support. FiO2 is currently 35%. The patient did have ( ) and has been tolerating her tube feeds. No diarrhea has been reported. PHYSICAL EXAMINATION: Blood pressure 112/67, pulse of 90, temperature of 98.2. She is 98% on 35% FiO2. General description is a middle-aged female lying in bed in no distress. Respiratory system: Unlabored breathing, decreased breath sounds in the base, with no wheeze. Heart S1, S2. Regular rate and rhythm. Abdomen soft, no tenderness. LABS: White count 20.7, BUN of 32, creatinine 0.52. DIAGNOSTIC IMPRESSION AND PLAN: Patient with acute respiratory failure which is ( ). post vanc. Patient's sputum and bronch have been negative. Currently on cefepime to continue and monitor clinical course closely. Continue supportive care. MMODL / IJN: [id number] /
[2020-04-15] MEDS: DEXTROSE 5% IN WATER 1,000 ML IV SCH ×3 (00:54→17:52)
[2020-04-15] MEDS: busPIRone HCl 5 MG TAB PO SCH ×3 (00:58→20:57)
[2020-04-15 01:03] LABS: Glucose,Whole Blood 149 mg/dL (75-99)
[2020-04-15] MEDS: methylPREDNISolone SOD SUCCI 125 MG/2 ML VIAL IV SCH ×5 (01:13→23:16)
[2020-04-15] MEDS: ARTIFICIAL TEARS-HYPROMELLOSE DROPS 15 ML BTL BOTH EYES SCH ×7 (01:13→23:14)
[2020-04-15] MEDS: INSULIN ASPART (NovoLOG) 100 UNIT/ML VIAL SQ SCH ×5 (01:13→23:22)
[2020-04-15] MEDS: CISATRACURIUM 200 MG in SODIUM CHLORIDE 0.9% 180 ML IV SCH ×2 (03:02→18:06)
--- NOTE | 2020-04-15 04:37 | P.PN ---
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 Patient does have history of IV drug abuse and stopped using approximately 2 weeks ago. Patient was seen at outside hospital in [place] for difficulty in breathing. Patient left AGAINST MEDICAL ADVICE. Patient came to [place] to see her family and has been having worsening symptoms again with cough and dyspnea. Chest x-ray showed diffuse bilateral pleural parenchymal changes.Coronavirus PCR and influenza A and B negative.CT angiogram showed no evidence of pulmonary embolism. Patient is status post bronchoscopy with bronchial lavage on 04/04. Patient eventually need intubation and placed on mechanical ventilation for worsening respiratory failure. Her hospital course was complicated by right pneumothorax and chest tube was placed by surgery team. Today she developed left-sided pneumothorax with another chest tube was placed. Patient remains on broad-spectrum antibiotics with cefepime , she was on IV vancomycin which is a stopped now. Also she is on small doses of IV Lasix 20 mg daily and salmeterol 60 mg. Surgery team were consulted for PEG tube and tracheostomy placement 04/10/2020 Patient remains in the ICU for COPD and pneumonia, his currently on cefepime and IV Solu-Medrol. He is intubated on mechanical ventilation was managed closely by pulmonary/critical care team. As per the pulmonary team patient is doing better today. His hospital course is complicated by bilateral pneumothoraces status post bilateral chest tube. Also patient is undergoing PEG tube and tracheostomy placement Also patient is still tachycardic and tachypneic. Also patient is on Lasix 20 mg twice daily, was once daily yesterday 04/11/2020 Patient remains in the ICU on mechanical ventilation and looks patient is doing better with her oxygenation and depressed ventilation with pulmonary/critical care team followed closely. She still has bilateral chest tubes for bilateral pneumothoraces Patient underwent PEG tube placement and tracheostomy placement by surgery team Her sodium was trending up to 152, D5 W was started and Lasix was stopped. 04/12/2020 Patient remains in the ICU, on mechanical ventilation with pulmonary/critical care team on the case. Patient was tachycardic and tachypneic and she had to be placed back on the buttocks however generally there is normal change in her clinical condition. She still needs bilateral chest tubes for bilateral pneumothoraces. She status post PEG tube and tracheostomy by surgery team She remains on cefepime Solu-Medrol 03/13/2020 Patient remains in the ICU intubated and sedated, she is on mechanical ventilation, she status post PEG tube placement and tracheostomy. No much progress in her condition. Cardiothoracic surgery evaluated the patient for her chest tube management. She still have air leak on the right side. No surgical intervention further recommendation and to continue suction on blood pressure Patient remains on cefepime for her bilateral airway disease. Her hypernatremia is improved with D5W and currently she is on normal saline at 100 mL/h and sodium level is 140. Also she is on Solu-Medrol for her severe asthma. Pulmon elier/critical care team on the case. 04/14/2020 Patient remains in the ICU, not making much progress, she still intubated and on mechanical ventilation. She's been followed by several consult of [facility] pulmonary/critical care team, stewardesses teacher, cardiothoracic surgery, infectious disease and Gen. surgery She remains on bilateral chest tube She remains on cefepime per ID recommendation She is also on Solu-Medrol 60 mg D5W was started. Sodium is 150. Prognosis remains guarded Review of systems: N/a Active Medications Generic Name Dose Route Start Last Admin Trade Name Freq PRN Reason Stop Dose Admin Acetaminophen 650 mg 04/03/20 13:35 04/14/20 13:07 Acetaminophen Tab 325 Mg Tab PO 650 mg Q6HR PRN Administration Fever and/ or Pain Albuterol/Ipratropium 3 ml 04/02/20 17:41 04/04/20 02:02 Ipratropium-Albuterol 3 Ml Neb INHALATION 3 ml RT-Q4H PRN Administration Shortness Of Breath Or Wheezing Albuterol/Ipratropium 3 ml 04/02/20 20:00 04/14/20 23:13 Ipratropium-Albuterol 3 Ml Neb INHALATION Not Given RT-QID [facility] Artificial Tears 1 drops 04/12/20 04:00 04/15/20 03:13 Artificial Tears-Hypromellose Drops 15 Ml Btl BOTH EYES 1 drops Q4H [facility] Administration Buspirone HCl 7.5 mg 04/04/20 21:00 04/15/20 00:58 Buspirone Hcl 5 Mg Tab PO 7.5 mg BID [facility] Administration Chlorhexidine Gluconate 15 ml 04/05/20 21:00 04/14/20 19:58 Chlorhexidine Gluconate 15 Ml Cup MUCOUS MEM 15 ml BID [facility] Administration Enoxaparin Sodium 40 mg 04/03/20 09:00 04/14/20 12:46 Enoxaparin 40 Mg/0.4 Ml Syringe SQ 40 mg DAILY [facility] Administration Famotidine 20 mg 04/09/20 21:00 04/14/20 19:58 Famotidine 20 Mg/2 Ml Vial IV 20 mg Q12HR [facility] Administration Ferrous Sulfate 325 mg 04/05/20 07:30 04/14/20 16:32 Ferrous Sulfate 325 Mg Tab PO Not Given BID-W/MEALS [facility] Guaifenesin/Codeine Phosphate 10 ml 04/03/20 15:09 04/04/20 01:57 Guaifenesin-Coden 100-10mg/5ml 10 Ml Cup PO 10 ml Q6H PRN Administration Cough Cefepime HCl 2 gm/ Sodium 100 mls @ 25 mls/hr 04/03/20 10:30 04/14/20 19:57 Chloride IVPB 25 mls/hr Q12HR [facility] Administration Propofol 1,000 mg/ IV Solution 100 mls @ 0 mls/hr 04/05/20 10:45 04/14/20 21:54 IV 50 mcg/kg/min .Q0M [facility] 12.3 mls/hr Administration Protocol Titrate Norepinephrine Bitartrate 32 250 mls @ 1.23 mls/hr 04/05/20 11:15 04/14/20 1 2:30 mg/ Sodium Chloride IV Not Given .Q24H [facility] Protocol 0.05 MCG/KG/MIN Fentanyl Citrate 2,500 mcg/ 250 mls @ 0 mls/hr 04/09/20 15:00 04/15/20 04:33 Sodium Chloride IV 4 mcg/kg/hr .Q0M [facility] 18.6 mls/hr Titration Protocol Per Protocol Cisatracurium Besylate 200 mg/ 200 mls @ 3.12 mls/hr 04/10/20 22:30 04/15/20 03:02 Sodium Chloride IV 3 mcg/kg/min .Q24H [facility] 9.36 mls/hr Administration Protocol 1 MCG/KG/MIN Dextrose/Water 1,000 mls @ 150 mls/hr 04/14/20 08:30 04/15/20 00:54 Dextrose 5%-Water Iv Soln IV 150 mls/hr .Q6H40M [facility] Administration Insulin Aspart 0 unit 04/05/20 18:00 04/15/20 01:13 Insulin Aspart (Novolog) 100 Unit/Ml Vial SQ 2 unit Q6H [facility] Administration Protocol Lorazepam 1 mg 04/05/20 06:21 04/13/20 20:01 Lorazepam 2 Mg/Ml Inj IV 1 mg Q4HR PRN Administration Anxiety Methylprednisolone Sodium Succinate 60 mg 04/02/20 18:30 04/15/20 01:13 Methylprednisolone Sod Succi 125 Mg/2 Ml Vial IV 60 mg Q6HR [facility] Administration Ondansetron HCl 4 mg 04/03/20 15:08 04/03/20 16:14 Ondansetron 4 Mg/2 Ml Vial IVP 4 mg Q6HR PRN Administration Nausea And Vomiting Objective - Vital Signs Vital signs: Vital Signs Temp 101.5 F H 04/14/20 12:00 Pulse 121 H 04/14/20 13:00 Resp 32 H 04/14/20 13:00 BP 110/61 04/14/20 13:00 Pulse Ox 94 L 04/14/20 13:00 Intake & Output 04/13/20 04/14/20 04/14/20 18:59 06:59 18:59 Intake Total 7022.187 1646.973 133 Output Total 1550 1462 125 Balance -251.232 609.973 8 Weight 41 kg Intake: IV 700 1136 100 Pressure bag 36 Sodium Chloride 0.9% 1, 700 1100 100 000 ml @ 100 mls/hr IV . Q10H [facility] Rx#:[id number] Intake, IV Titration 565.768 383.973 Amount Cefepime 2 gm In Sodium 100 Chloride 0.9% 100 ml @ 25 mls/hr IVPB Q12HR [facility] Rx #:[id number] Cisatracurium 200 mg In 157.248 81.796 Sodium Chloride 0.9% 180 ml @ 1 MCG/KG/MIN 3.12 mls/hr IV .Q24H [facility] Rx#: [id number] fentaNYL (PF) 2,500 mcg 208.52 227.557 In Sodium Chloride 0.9% 200 ml @ Per Protocol IV .Q0M [facility] Rx#:[id number] propofoL 1,000 mg In 100 74.62 Empty Bag 1 bag @ Titrate IV .Q0M [facility] Rx#: [id number] Tube Feeding 33 462 33 Other 90 Output: Chest Tube Drainage 137 Chest Tube Left 85 Chest Tube Right 45 Chest Tube Right Anterior 7 Chest Urine 1550 1325 125 Stool 0 Other: Voiding Method Indwelling Catheter Indwelling Catheter # Voids 1 1 ABP, PAP, CO, CI - Last Documented Arterial Blood Pressure 136/64 - Exam -GENERAL: The patient is intubated and sedated HEENT: Pupils are round and equally reacting to light. EOMI. No scleral icterus. No conjunctival pallor. Normocephalic, atraumatic. No pharyngeal erythema. No thyromegaly. CARDIOVASCULAR: S1 and S2 present. No murmurs, rubs, or gallops. -PULMONARY: Chest is clear to auscultation, no wheezing or crackles. Bilateral chest tube placement ABDOMEN: Soft, nontender, nondistended, normoactive bowel sounds. No palpable organomegaly. MUSCULOSKELETAL: No joint swelling or deformity. EXTREMITIES: No cyanosis, clubbing, or pedal edema. NEUROLOGICAL: Gross neurological examination did not reveal any focal deficits. SKIN: No rashes. no petechiae. - Labs CBC & Chem 7: 04/14/20 05:15 04/14/20 05:15 Labs: Abnormal Lab Results - Last 24 Hours (Table) 04/13/20 04/13/20 04/14/20 Range/Units 17:16 23:37 05:15 WBC 20.7 H (3.8-10.6) k/uL RBC 3.54 L (3.80-5.40) m/uL Hgb 7.9 L (11.4-16.0) gm/dL Hct 27.7 L (34.0-46.0) % MCV 78.1 L (80.0-100.0) fL MCH 22.2 L (25.0-35.0) pg MCHC 28.4 L (31.0-37.0) g/dL RDW 17.1 H (11.5-15.5) % Neutrophils # 19.3 H (1.3-7.7) k/uL Lymphocytes # 0.6 L (1.0-4.8) k/uL ABG pH (7.35-7.45) ABG pCO2 (35-45) mmHg ABG pO2 (83-108) mmHg ABG HCO3 (21-25) mmol/L ABG Total CO2 (19-24) mmol/L Sodium (137-145) mmol/L Chloride (98-107) mmol/L Carbon Dioxide (22-30) mmol/L BUN (7-17) mg/dL Glucose (74-99) mg/dL POC Glucose (mg/dL) 146 H 137 H (75-99) mg/dL ALT (4-34) U/L Total Protein (6.3-8.2) g/dL Albumin (3.5-5.0) g/dL 04/14/20 04/14/20 04/14/20 Range/Units 05:15 05:16 08:24 WBC (3.8-10.6) k/uL RBC (3.80-5.40) m/uL Hgb (11.4-16.0) gm/dL Hct (34.0-46.0) % MCV (80.0-100.0) fL MCH (25.0-35.0) pg MCHC (31.0-37.0) g/dL RDW (11.5-15.5) % Neutrophils # (1.3-7.7) k/uL Lymphocytes # (1.0-4.8) k/uL ABG pH 7.28 L (7.35-7.45) ABG pCO2 85 H* (35-45) mmHg ABG pO2 78 L (83-108) mmHg ABG HCO3 40 H* (21-25) mmol/L ABG Total CO2 42 H (19-24) mmol/L Sodium 150 H (137-145) mmol/L Chloride 109 H (98-107) mmol/L Carbon Dioxide 41 H* (22-30) mmol/L BUN 32 H (7-17) mg/dL Glucose 136 H (74-99) mg/dL POC Glucose (mg/dL) 138 H (75-99) mg/dL ALT 47 H (4-34) U/L Total Protein 5.5 L (6.3-8.2) g/dL Albumin 2.7 L (3.5-5.0) g/dL 04/14/20 Range/Units 12:18 WBC (3.8-10.6) k/uL RBC (3.80-5.40) m/uL Hgb (11.4-16.0) gm/dL Hct (34.0-46.0) % MCV (80.0-100.0) fL MCH (25.0-35.0) pg MCHC (31.0-37.0) g/dL RDW (11.5-15.5) % Neutrophils # (1.3-7.7) k/uL Lymphocytes # (1.0-4.8) k/uL ABG pH (7.35-7.45) ABG pCO2 (35-45) mmHg ABG pO2 (83-108) mmHg ABG HCO3 (21-25) mmol/L ABG Total CO2 (19-24) mmol/L Sodium (137-145) mmol/L Chloride (98-107) mmol/L Carbon Dioxide (22-30) mmol/L BUN (7-17) mg/dL Glucose (74-99) mg/dL POC Glucose (mg/dL) 127 H (75-99) mg/dL ALT (4-34) U/L Total Protein (6.3-8.2) g/dL Albumin (3.5-5.0) g/dL Assessment and Plan Assessment: Bilateral patchy groundglass opacities Secondary to pneumonia. Patient possible ARDS Acute hypoxic respiratory failure secondary to pneumonia currently patient is on mechanical ventilator. Status post tracheostomy and PEG placement on 04/11 Bilateral pneumothorax. Status post bilateral chest tube placement. Acute asthma exacerbation hypernatremia Recent history of IV drug abuse, about 2 weeks prior to admission non-Compliance to therapy. The patient left [place] in [facility] History of ALL currently in remission. History of Anxiety Nicotine dependence, everyday smoker Plan: This is a 29 years old female who presents with bilateral pneumonia and possible ARDS and bilateral pneumothorax status post chest tube. Continue with antibiotic, continue with steroids. Discontinue IV Lasix and continue with D5W. agement. Follow-up recommendation by pulmonary/critical care team R following the case closely. Labs and medication were reviewed.. Continue same treatment. Continue with symptomatic treatment. Resume home medication. Monitor lytes and vitals. DVT and GI prophylaxis. Further recommendationsas per clinical course of the patient DVT prophylaxis: Subcutaneous Lovenox GI Prophylaxis: Pepcid Prognosis is guarded
[2020-04-15 05:37] LABS: Glucose,Whole Blood 168 mg/dL (75-99)
[2020-04-15 05:53] LABS: Anisocytosis Slight; Basophils % (A) 0 %; Eosinophils % (A) 0 %; Hypochromasia Marked; Lymphocytes # (A) 0.7 k/uL (1.0-4.8); Lymphocytes % (A) 5 %; MCH 22.5 pg (25.0-35.0); MCV 77.7 fL (80.0-100.0); Mean Platelet Volume 7.8; Microcytosis Slight; Monocytes # (A) 0.5 k/uL (0-1.0); Monocytes % (A) 3 %; Platelet Count 176 k/uL (150-450); RBC 2.96 m/uL (3.80-5.40); RDW 17.4 % (11.5-15.5); WBC 16.2 k/uL (3.8-10.6)
[2020-04-15 06:02] LABS: ALT 33 U/L (4-34); AST 22 U/L (14-36); African American GFR (CKD) >90 (>60 ml/min/1.73 sqM); Albumin 2.4 g/dL (3.5-5.0); Alkaline Phosphatase 44 U/L (38-126); Blood Urea Nitrogen 32 mg/dL (7-17); Calcium 8.2 mg/dL (8.4-10.2); Chloride 100 mmol/L (98-107); Glucose 165 mg/dL (74-99); Non-African American GFR(CKD) >90 (>60 ml/min/1.73 sqM); Potassium 3.6 mmol/L (3.5-5.1); Sodium 141 mmol/L (137-145); Total Bilirubin 0.2 mg/dL (0.2-1.3); Total Protein 4.9 g/dL (6.3-8.2)
[2020-04-15 06:08] LABS: Anion Gap -5 mmol/L
[2020-04-15 06:34] LABS: Carbon Dioxide 46 mmol/L (22-30)
[2020-04-15 07:11] LABS: HGB 6.7 gm/dL (11.4-16.0)
--- NOTE | 2020-04-15 07:11 | XR ---
EXAMINATION TYPE: XR chest 1V portable DATE OF EXAM: 04/15/2020 CLINICAL HISTORY: Difficulty breathing and pneumothorax progress study. TECHNIQUE: Single AP portable semiupright view of the chest is obtained. COMPARISON: Chest x-ray from one day earlier and older studies. FINDINGS: Redemonstration of flexible endotracheal tube. Persistent 2 right basilar and single left apical chest tubes. Stable small left apical pneumothorax. Pulmonary fibrotic changes bilaterally redemonstrated with multifocal edema and/or infiltrates. Cardi ac silhouette size stable and within normal limits. Osseous structures are intact. Current study show s more right-sided rotation. IMPRESSION: Pulmonary fibrotic changes along with apical pleural thickening bilaterally redemonstrat ed. Scattered areas of acute infiltrate and/or edema bilaterally redemonstrated. Small left apical pn eumothorax. Bilateral chest tubes. No significant change from one day earlier.
--- NOTE | 2020-04-15 08:31 | P.PN ---
Subjective Progress Note Date: 04/15/20 Principal diagnosis: Bilateral pneumothorax. 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 Status post right pleural chest tube placement 2 and left pleural chest tube 1. The patient was seen in follow-up today at her bedside in the intensive care unit. She remains sedated with Diprivan and fentanyl drips and is on Nimbex. Her trach is midline with mechanical ventilator support. Bedside telemetry showing normal sinus rhythm heart rate 71 BPM. Her bedside nurse reports that she did have some episodes of bradycardia throughout the night with heart rates in the 40s. 2-D echocardiogram results show no vegetation seen on the study, and an overall left ventricular systolic function to be normal with an ejection fraction between 55 and 60%. Oxygen saturation are 96% with mechanical ventilator support, current mechanical ventilator settings are assist control 32, tidal volume 250, FiO2 35% and a PEEP of 5. Right pleural chest tubes remain in place to low continuous wall suction -20 cm H2O. Small intermittent air leak noted from the right pleural chest tube marked #2. Right pleural chest tubes draining scant thin serosanguineous drainage. Left pleural chest tube remains to low continuous wall suction -20 cm H2O. No air leak is present. Draining scant serosanguineous thin drainage. T-max temperature in the last 24 hours 101.5F, no growth from cultures including blood, sputum and bronchial washings. Objective - Vital Signs Vital signs: Vital Signs Temp 98.6 F 04/15/20 04:00 Pulse 62 04/15/20 07:00 Resp 32 H 04/15/20 07:00 BP 93/55 04/15/20 07:00 Pulse Ox 96 04/15/20 07:00 Intake & Output 04/14/20 04/15/20 04/15/20 18:59 06:59 18:59 Intake Total 2353.204 2820.993 Output Total 798 1889 Balance 1555.204 931.993 Weight 46.5 kg Intake: IV 1330 2034 Dextrose 5% in Water 1, 400 000 ml @ 100 mls/hr IV . Q10H [facility] Rx#:[id number] Dextrose 5% in Water 1, 300 1950 000 ml @ 150 mls/hr IV . Q6H40M [facility] Rx#:[id number] Pressure bag 30 24 Sodium Chloride 0.9% 1, 600 60 000 ml @ 100 mls/hr IV . Q10H [facility] Rx#:[id number] Intake, IV Titration 468.204 267.993 Amount Cisatracurium 200 mg In 118.204 Sodium Chloride 0.9% 180 ml @ 1 MCG/KG/MIN 3.12 mls/hr IV .Q24H [facility] Rx#: [id number] fentaNYL (PF) 2,500 mcg 250 107.723 In Sodium Chloride 0.9% 200 ml @ Per Protocol IV .Q0M [facility] Rx#:[id number] propofoL 1,000 mg In 100 160.27 Empty Bag 1 bag @ Titrate IV .Q0M [facility] Rx#: [id number] Tube Feeding 495 429 Other 60 90 Output: Chest Tube Drainage 8 99 Chest Tube Left 5 64 Chest Tube Right 0 7 Chest Tube Right Anterior 3 28 Chest Urine 790 1790 Other: Voiding Method Indwelling Catheter Indwelling Catheter # Voids 1 ABP, PAP, CO, CI - Last Documented Arterial Blood Pressure 139/53 - Exam Sedated on Diprivan and fentanyl drips. Emaciated. - Constitutional General appearance: Present: no acute distress - EENT Eyes: Present: poor dentition, normal appearance. Absent: scleral icterus - Neck Details: No JVD, no supple. Tracheostomy is midline and intact. - Respiratory Details: Lung sounds diminished throughout with some few expiratory wheezes. No crackles or rhonchi. Respirations are symmetrical and nonlabored with mechanical ventilator support. Tracheostomy is midline. Oxygen saturation 96% with mechanical ventilator support. - Cardiovascular Details: Regular rhythm and rate. S1 and S2 present, negative for S3, gallop or murmur. No edema present. Bedside telemetry showing normal sinus rhythm heart rate 71 BPM. Sequential compression devices in place to bilateral lower extremities. - Gastrointestinal Gastrointestinal Comment(s): Abdomen is soft, nontender and nondistended. Active bowel sounds present in all 4 abdominal quadrants. PEG tube clean and intact with vital high-protein tube feeding infusing at goal rate of 33 mL/h. - Genitourinary Genitourinary Comment(s): Ac catheter for accurate I&O. Draining clear yellow urine. - Neurologic Neurologic Comment(s): Unable to assess as patient is sedated on propofol and fentanyl. Also on Nimbex. - Musculoskeletal Musculoskeletal Comment(s): Unable to assess as patient is sedated on propofol and fentanyl. Also on Nimbex. - Psychiatric Psychiatric Comment(s): Unable to assess as patient is sedated on propofol and fentanyl. Also on Nimbex. - Allied health notes Allied health notes reviewed: nursing - Labs CBC & Chem 7: 04/15/20 05:30 04/15/20 05:30 Labs: Abnormal Lab Results - Last 24 Hours (Table) 04/14/20 04/14/20 04/14/20 Range/Units 08:24 12:18 17:22 WBC (3.8-10.6) k/uL RBC (3.80-5.40) m/uL Hgb (11.4-16.0) gm/dL Hct (34.0-46.0) % MCV (80.0-100.0) fL MCH (25.0-35.0) pg MCHC (31.0-37.0) g/dL RDW (11.5-15.5) % Neutrophils # (1.3-7.7) k/uL Lymphocytes # (1.0-4.8) k/uL ABG pH 7.28 L (7.35-7.45) ABG pCO2 85 H* (35-45) mmHg ABG pO2 78 L (83-108) mmHg ABG HCO3 40 H* (21-25) mmol/L ABG Total CO2 42 H (19-24) mmol/L Carbon Dioxide (22-30) mmol/L BUN (7-17) mg/dL Creatinine (0.52-1.04) mg/dL Glucose (74-99) mg/dL POC Glucose (mg/dL) 127 H 166 H (75-99) mg/dL Calcium (8.4-10.2) mg/dL Total Protein (6.3-8.2) g/dL Albumin (3.5-5.0) g/dL 04/15/20 04/15/20 04/15/20 Range/Units 01:01 05:30 05:30 WBC 16.2 H (3.8-10.6) k/uL RBC 2.96 L (3.80-5.40) m/uL Hgb 6.7 L* (11.4-16.0) gm/dL Hct 23.0 L (34.0-46.0) % MCV 77.7 L (80.0-100.0) fL MCH 22.5 L (25.0-35.0) pg MCHC 29.0 L (31.0-37.0) g/dL RDW 17.4 H (11.5-15.5) % Neutrophils # 15.0 H (1.3-7.7) k/uL Lymphocytes # 0.7 L (1.0-4.8) k/uL ABG pH (7.35-7.45) ABG pCO2 (35-45) mmHg ABG pO2 (83-108) mmHg ABG HCO3 (21-25) mmol/L ABG Total CO2 (19-24) mmol/L Carbon Dioxide 46 H* (22-30) mmol/L BUN 32 H (7-17) mg/dL Creatinine 0.38 L (0.52-1.04) mg/dL Glucose 165 H (74-99) mg/dL POC Glucose (mg/dL) 149 H (75-99) mg/dL Calcium 8.2 L (8.4-10.2) mg/dL Total Protein 4.9 L (6.3-8.2) g/dL Albumin 2.4 L (3.5-5.0) g/dL 04/15/20 Range/Units 05:35 WBC (3.8-10.6) k/uL RBC (3.80-5.40) m/uL Hgb (11.4-16.0) gm/dL Hct (34.0-46.0) % MCV (80.0-100.0) fL MCH (25.0-35.0) pg MCHC (31.0-37.0) g/dL RDW (11.5-15.5) % Neutrophils # (1.3-7.7) k/uL Lymphocytes # (1.0-4.8) k/uL ABG pH (7.35-7.45) ABG pCO2 (35-45) mmHg ABG pO2 (83-108) mmHg ABG HCO3 (21-25) mmol/L ABG Total CO2 (19-24) mmol/L Carbon Dioxide (22-30) mmol/L BUN (7-17) mg/dL Creatinine (0.52-1.04) mg/dL Glucose (74-99) mg/dL POC Glucose (mg/dL) 168 H (75-99) mg/dL Calcium (8.4-10.2) mg/dL Total Protein (6.3-8.2) g/dL Albumin (3.5-5.0) g/dL Microbiology - Last 24 Hours (Table) 04/13/20 18:41 Blood Culture - Preliminary Blood No Growth after 24 hours 04/13/20 19:01 Blood Culture - Preliminary Blood No Growth after 24 hours - Imaging and Cardiology Chest x-ray: report reviewed, image reviewed Assessment and Plan Assessment: 1. Bilateral pneumothoraces, secondary to barotrauma, status post right and left chest tube placement 2. Acute hypoxic respiratory failure requiring intubation with mechanical ventilator support. Status post tracheostomy placement by general surgery 3. Acute exacerbation of COPD 4. History of IV drug abuse 5. History of seizure disorder 6. Generalized anxiety disorder 7. Remote history of acute lymphocytic leukemia, status post chemotherapy treatments, currently in remission 8. Severe malnutrition 9. History of deep vein thrombosis Plan: 1. Continue right and left pleural chest tubes to low continuous wall suction - 20 cm H2O. Monitor for airleak resolution and for pneumothorax resolution. 2. Critical care management per Dr. Jimenez's recommendations. 3. DVT and GI prophylaxis. 4. 2-D echocardiogram results reviewed. No vegetation seen per Dr. Vazquez. 5. Continue to follow daily chest x-rays. 6. More recommendations to follow based on patient's clinical course. I have seen and examined the patient and agree with the assessment and plan as dictated by my nurse practitioner. Time with Patient: Less than 30
[2020-04-15] MEDS: NOREPINEPHRINE 32 MG in SODIUM CHLORIDE 0.9% 218 ML IV SCH (09:11)
[2020-04-15] MEDS: FERROUS SULFATE 325 MG TAB PO SCH ×2 (09:11→16:40)
[2020-04-15] MEDS: CEFEPIME 2 GM in SODIUM CHLORIDE 0.9% 100 ML IVPB SCH ×2 (09:23→20:56)
[2020-04-15] MEDS: fentaNYL (PF) 2,500 MCG in SODIUM CHLORIDE 0.9% 200 ML IV SCH ×2 (09:23→23:13)
[2020-04-15] MEDS: CHLORHEXIDINE GLUCONATE 15 ML CUP MUCOUS MEM SCH ×2 (09:24→20:57)
[2020-04-15] MEDS: FAMOTIDINE 20 MG/2 ML VIAL IV SCH ×2 (09:25→20:57)
[2020-04-15] MEDS: ENOXAPARIN 40 MG/0.4 ML SYRINGE SQ SCH (09:25)
--- NOTE | 2020-04-15 09:27 | P.PN ---
Subjective Progress Note Date: 04/15/20 Principal diagnosis: Respiratory failure, pneumonia, asthma and history of drug abuse This is a 29-year-old female with multiple medical issues including pneumonia, bilateral pneumothorax. Possible sepsis and also history of COPD and asthma. We're asked to see the patient to rule out possibility of endocarditis. A surface echocardiogram was performed which did not reveal any evidence of vegetations or valvular dysfunction. LV function appeared to be normal. At this point there is no evidence of endocarditis from the study. If patient continues to be febrile and has positive blood cultures, further evaluation may be considered. Continue current medical therapy. There is a history that patient is having SVT. So far we have seen only episodes of sinus tachycardia. If SVT is a documented, we can further address. Otherwise patient will follow on when necessary basis. Her prognosis seems to be poor. 04/15/2020: This patient still remains on the ventilator and sedated. Apparently patient had a temperature up to 101 yesterday. Blood cultures have been negative so far. Patient has some Bruce episodes last night but diagnosis. He to be in sinus rhythm. Surface echocardiogram did not show any evidence of vegetations or valvular dysfunction. Continue to monitor her for fevers and also blood cultures. If the blood culture becomes positive, patient may become a candidate for further evaluation including OLVIN. At this point we'll follow her as needed. Thank you again Objective - Vital Signs Vital signs: Vital Signs Temp 98.6 F 04/15/20 04:00 Pulse 62 04/15/20 07:00 Resp 32 H 04/15/20 07:00 BP 93/55 04/15/20 07:00 Pulse Ox 96 04/15/20 07:00 Intake & Output 04/14/20 04/15/20 04/15/20 18:59 06:59 18:59 Intake Total 2353.204 2820.993 Output Total 798 1889 Balance 1555.204 931.993 Weight 46.5 kg Intake: IV 1330 2034 Dextrose 5% in Water 1, 400 000 ml @ 100 mls/hr IV . Q10H [facility] Rx#:[id number] Dextrose 5% in Water 1, 300 1950 000 ml @ 150 mls/hr IV . Q6H40M [facility] Rx#:[id number] Pressure bag 30 24 Sodium Chloride 0.9% 1, 600 60 000 ml @ 100 mls/hr IV . Q10H [facility] Rx#:[id number] Intake, IV Titration 468.204 267.993 Amount Cisatracurium 200 mg In 118.204 Sodium Chloride 0.9% 180 ml @ 1 MCG/KG/MIN 3.12 mls/hr IV .Q24H [facility] Rx#: [id number] fentaNYL (PF) 2,500 mcg 250 107.723 In Sodium Chloride 0.9% 200 ml @ Per Protocol IV .Q0M [facility] Rx#:[id number] propofoL 1,000 mg In 100 160.27 Empty Bag 1 bag @ Titrate IV .Q0M [facility] Rx#: [id number] Tube Feeding 495 429 Other 60 90 Output: Chest Tube Drainage 8 99 Chest Tube Left 5 64 Chest Tube Right 0 7 Chest Tube Right Anterior 3 28 Chest Urine 790 1790 Other: Voiding Method Indwelling Catheter Indwelling Catheter # Voids 1 ABP, PAP, CO, CI - Last Documented Arterial Blood Pressure 139/53 - Exam GENERAL EXAM: Patient is intubated and sedated HEENT: Normocephalic. Normal reaction of pupils, equal size, normal range of extraocular motion. No erythema or exudates in the throat. NECK: No masses, no nuchal rigidity. CHEST: No chest wall deformity. LUNGS: Diffuse rhonchi HEART: S1 and S2 normal. No definite murmurs heard ABDOMEN: No hepatosplenomegaly, normal bowel sounds, no guarding or rigidity. SKIN: No rashes CENTRAL NERVOUS SYSTEM: Deferred EXTREMITIES: No cyanosis, clubbing or edema. - Labs CBC & Chem 7: 04/15/20 05:30 04/15/20 05:30 Labs: Abnormal Lab Results - Last 24 Hours (Table) 04/14/20 04/14/20 04/15/20 Range/Units 12:18 17:22 01:01 WBC (3.8-10.6) k/uL RBC (3.80-5.40) m/uL Hgb (11.4-16.0) gm/dL Hct (34.0-46.0) % MCV (80.0-100.0) fL MCH (25.0-35.0) pg MCHC (31.0-37.0) g/dL RDW (11.5-15.5) % Neutrophils # (1.3-7.7) k/uL Lymphocytes # (1.0-4.8) k/uL Carbon Dioxide (22-30) mmol/L BUN (7-17) mg/dL Creatinine (0.52-1.04) mg/dL Glucose (74-99) mg/dL POC Glucose (mg/dL) 127 H 166 H 149 H (75-99) mg/dL Calcium (8.4-10.2) mg/dL Total Protein (6.3-8.2) g/dL Albumin (3.5-5.0) g/dL 04/15/20 04/15/20 04/15/20 Range/Units 05:30 05:30 05:35 WBC 16.2 H (3.8-10.6) k/uL RBC 2.96 L (3.80-5.40) m/uL Hgb 6.7 L* (11.4-16.0) gm/dL Hct 23.0 L (34.0-46.0) % MCV 77.7 L (80.0-100.0) fL MCH 22.5 L (25.0-35.0) pg MCHC 29.0 L (31.0-37.0) g/dL RDW 17.4 H (11.5-15.5) % Neutrophils # 15.0 H (1.3-7.7) k/uL Lymphocytes # 0.7 L (1.0-4.8) k/uL Carbon Dioxide 46 H* (22-30) mmol/L BUN 32 H (7-17) mg/dL Creatinine 0.38 L (0.52-1.04) mg/dL Glucose 165 H (74-99) mg/dL POC Glucose (mg/dL) 168 H (75-99) mg/dL Calcium 8.2 L (8.4-10.2) mg/dL Total Protein 4.9 L (6.3-8.2) g/dL Albumin 2.4 L (3.5-5.0) g/dL Microbiology - Last 24 Hours (Table) 04/13/20 18:41 Blood Culture - Preliminary Blood No Growth after 24 hours 04/13/20 19:01 Blood Culture - Preliminary Blood No Growth after 24 hours Assessment and Plan (1) Asthma with acute exacerbation Current Visit: Yes Status: Acute Code(s): J45.901 - UNSPECIFIED ASTHMA WITH (ACUTE) EXACERBATION SNOMED Code(s): 712345446 (2) Pneumonia Current Visit: Yes Status: Acute Code(s): J18.9 - PNEUMONIA, UNSPECIFIED ORGANISM SNOMED Code(s): 607390777 (3) Sepsis Current Visit: Yes Status: Acute Code(s): A41.9 - SEPSIS, UNSPECIFIED OR GANISM SNOMED Code(s): 07197570 (4) IV drug user Current Visit: No Status: Acute Code(s): F19.90 - OTHER PSYCHOACTIVE SUBSTANCE USE, UNSPECIFIED, UNCOMPLICATED SNOMED Code(s): 422366404 Plan: Blood cultures have been negative. Patient is in sinus rhythm with heart rate is in the 70s. Surface echocardiogram did not show any evidence of valvular dysfunction or definite vegetations. Continue to monitor her. If her blood cultures become positive, further evaluation including OLVIN to be considered.
[2020-04-15 10:12] LABS: ABG Base Excess 18.4 mmol/L; ABG Oxygen Saturation 99.5 % (94-97); ABG PH 7.39 (7.35-7.45); ABG PO2 114 mmHg (83-108); ABG TCO2 46 mmol/L (19-24); Allen Test Performed? Yes
[2020-04-15 10:15] LABS: ABG HCO3 43 mmol/L (21-25); ABG PCO2 73 mmHg (35-45)
[2020-04-15] MEDS: IPRATROPIUM-ALBUTEROL 3 ML NEB INHALATION SCH ×4 (10:16→20:25)
[2020-04-15 12:00] LABS: Glucose,Whole Blood 162 mg/dL (75-99)
--- NOTE | 2020-04-15 13:44 | P.PN ---
Progress Note - Text Progress Note Date: 04/15/20 Patient remains on the ventilator. Her tracheostomy site is clean. Abdomen soft. Patient may require PEG tube. We can reattempt this week.
--- NOTE | 2020-04-15 14:41 | P.PN ---
Subjective Progress Note Date: 04/15/20 Principal diagnosis: Acute hypoxic respiratory failure secondary to bilateral pneumonia and bilateral pneumothoraces. And Underlying severe COPD 04/04/2020 the patient is being seen for a follow-up. The patient is going to undergo bronchoscopy today. I was able to obtain records from the hospital as the [facility] and at that time the patient was hospitalized for rae ateral pneumonia. CAT scan of the chest findings were similar to the ones that he had he [place]. The patient underwent further investigation including alpha-1 antitrypsin level came back within normal, cystic fibrosis mutation screen that came back negative, HIV screen that came back negative, fungal screen including Histoplasma urine antigen, cryptococcal serum antigen and Aspergillus antibodies and all of these were negative. For now, the patient is scheduled to undergo bronchoscopy and bronchial lavage. Echocardiogram showed no evidence of any valvular disease or vegetations. She is still short of breath and she has increased dyspnea cough chest tightness and wheezing. No significant sputum production. On 04/05/2020, the patient is in intensive care unit. Mother the patient underwent a bronchoscopy and bronchial lavage yesterday and the procedure was essentially uncomplicated. 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 At that point, the emergency team was called and the patient was evaluated twice. During the second evaluation, chest x-ray was done and the patient was found to have diffuse but the pulmonary infiltrates in addition to hypoxic respiratory failure. The patient was started on a BiPAP at a pressure of 12/5 with an FiO2 of 60% and the patient got transferred to the ICU. She was also given a dose of Lasix. She started producing adequate amount of urine output. Nevertheless, she continued to have agonal breathing, low tidal volume and increased tachypnea with impending signs of respiratory failure even while being on a BiPAP. At that point, I made a decision to intubate the patient in intensive care unit. The patient was intubated by #8 orotracheal tube. She was placed on a mechanical ventilator. A triple lumen catheter was established. An outlying catheter was also established. The post intubation blood gas showed a pH of 7.25 with a pCO2 of 87 pO2 of 386 and this was done on assist control mode at the rate of 20 with tidal volume of 350 and FiO2 of 100% with a PEEP of 5. FiO2 is down to 50%. The patient at this point in time is sedated with propofol and the patient is calm and comfortable. Fentanyl was also added to improve for sedation while being a mechanical ventilator. Results of the bronchioloalveolar lavage is still negative. No microbial growth. The patient remains on a combination of IV cefepime and vancomycin. The post intubation chest x-ray showed bilateral pleural thickening and bilateral airspace disease seen although somewhat improved compared to the earlier chest x-rays. ET tube was around 1 cm above the sandra. Blood work from this morning showed a hemoglobin of 7.2. White cell count of 15.8. Aggressive the blood work essentially within normal limits. On 04/06/2020, the patient remains intubated on a mechanical. On today's evaluation the patient is on propofol running at 50 g per KG per minute. The patient is also on fentanyl drip at 3 g per KG per minute. IV fluids at KVO and the patient is on levo fed at 0.1 mg per KG per minute. The patient remains on mechanical ventilator on assist control mode at the rate of 24 with a tidal volume loss was 75 with an FiO2 of 50% and PEEP of 5. Peak airway pressure 37. Plateau airway pressure is 35. Patient is receiving tube feed with vital high protein at the rate of 10 mL an hour and the patient will be advanced to goal. The bronchioloalveolar lavage that was done earlier came back negative for any microbial growth. A chest x-ray from today shows some improvement and by the pulmonary infiltrate that was established on yesterday's chest x-ray. The patient remains on a combination of cefepime and vancomycin. Lasix will be restarted. No other significant events otherwise for now. She is requiring norepinephrine infusion for blood pressure control. Echocardiogram at shown a preserved LV function without any significant LV dysfunction. Triple lumen catheter has been established and have right femoral vein. She also has an arterial line catheter. I was concerned about elevated airway pressures in this patient. Unable to ventilate with a higher volumes as the patient's pressure will go significantly high. I switch this patient to a pressure control mode of ventilation. 04/07/2020, the patient is being seen for follow-up. The patient remains intubated on a mechanical ventilator. The patient is on assist control ventilation and on today's evaluation the patient is on a pressure control of 30 with a PEEP of 5 and FiO2 of 50% with a rate of 34. The blood gases from today showed a pH of 7.47 with a pCO2 of 69 a pO2 of 168 and a follow-up chest x-ray from today showed improvement in the bilateral pulmonary infiltrates. Nevertheless, there was a note of a right-sided pneumothorax. Based on this, a CAT scan of the chest was done to confirm the findings and the patient did have a right-sided pneumothorax there was moderate in size in addition to bilateral diffuse bilateral a disease and small bilateral pleural effusions. At that point, a 24-Bahamian chest tube was inserted in the right hemithorax and a follow- up chest x-ray is pending for now. The patient remains hemodynamically stable and there was no evidence of any tension due to this pneumothorax. I also did some ventilator changes. I dropped the pressure control down to 20 and dropped a respiratory rate down to 24 and drop the FiO2 down to 40%. A repeat blood gases was done and the repeat blood gases showed a pH of 7.37 with a pCO2 of 89 pO2 of 95. The patient's white cell count of 10.4 with hemoglobin of 7.2. The rest of the blood work and electrodes with a component of metabolic alkalosis with a serum bicarb of 50 and a sodium of 141. The patient remains on broad- spectrum antibiotics. Vancomycin was discontinued as the patient's bronchial alveolar lavage did not reveal any microbial growth and I'm going to keep this patient only on cefepime for now. The patient remains sedated with a combination of fentanyl erythematous events per KG per minute and for prophylaxis for microvascular KG per minute. The patient is also being diuresis with Lasix at a dose of 20 mg IV push every 12 hours. The patient is on vital high protein at the rate of 30 mL an hour. 04/08/2020, the patient remains intubated on a mechanical ventilator. Unfortunately, she continues to have a small right-sided pneumothorax despite a chest tube insertion. The air leak from the right-sided chest tube is minimal at this point in time and output is minimal. The patient is extremely debilitated. 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 She has advanced COPD with chronic lung disease. She is currently on a pressure control mode of ventilation with a pressure control of 20 with an FiO2 of 40% with a PEEP of 5 and the rate of 24. The blood gases showed a pH of 7.43 with a pCO2 of 84 and pO2 of 111. The peak airway pressure 33. The static airway pressure is 27. The patient remains sedated with propofol at the rate of 50 g per KG per minute and fentanyl is running at a rate of 3 g per KG per minute. Norepinephrine is running at 0.02 g per KG per minute. Cultures from the bronchioloalveolar lavage has been negative and the patient is still on cefepime as a broad-spectrum antibiotic coverage for now. She is being diuresed with IV Lasix at a dose of 20 mg IV push every 12 hours. The dose of Lasix will be tapered as the patient has been adequate fluid balance. The chest x-ray findings shows improvement and by the pulmonary infiltrates. There is however a stable loculated right-sided pneumothorax and the right-sided chest tube is in good location. ET tube is in good location. The patient was started on enteral feeding for nutritional support. I'm very much convinced that the patient would benefit from a PEG and trach as the patient has advanced lung disease and she is quite debilitated and malnourished at this young age. On a separate note, earlier this morning the patient went into a bout of an SVT with a heart rate of 160. The patient was given 2 doses o f IV Rocephin, 6 mg and 12 mg without success. Her heart rate gradually is improving at this point in time and over the next few hours, the patient's heart rate dropped down to 112 Reevaluated today on 04/09/20, patient remains intubated and mechanically ventilated. She is on pressure control mode of mechanical ventilation, pressure control is set at 24, inspiratory time is 0.65 seconds patient is on 40% FiO2 and PEEP of 5. She was intubated on 04/05/20, she is on propofol at 50 mcg/kg/m, fentanyl at 3 mcg/kg/h, she is also on norepinephrine at 0.01 mcg/kg/m. IV fluid is at 20 mL per hour. Patient has a right femoral triple- lumen catheter. Right radial arterial line. Right-sided chest tube with air leak noted. And today she ended up with a left-sided chest tube for left-sided pneumothorax which was noted on the chest x-ray earlier today. Patient is on tube feeding vital Hb 53 mL/h and this is the goal is also on cefepime empirically. ABG today showed a pO2 of 148 pCO2 of 74 pH of 7.34. WBC count is 7.6 hemoglobin is 7.8. Electrolytes and renal profile are normal. Bicarb is 39. This morning chest x-ray showed left-sided pneumothorax which is a new hence I went ahead and placed a left sided chest tube 28 [place] chest tube was placed since the patient is on mechanical ventilation. Not much changes noted in the pneumothorax after the chest tube placement Reevaluated today on 04/10/20, patient remains intubated and mechanically ventilated ventilator settings are pressure control set at 26, FiO2 is 35%, PEEP is at 5, inspiratory time is 0.70 and the rate is 24. Patient seems to be doing better today, better and adequate tidal volumes noted, just over 300 mL tidal volumes. Chest x-ray continues to show bilateral pneumothoraces secondary to barotrauma. Chest tubes are both in place. ABG today showed a pO2 of 211 pCO2 of 57 pH of 7.40, hence I cut down the FiO2 to 35%. Both tubes continued to have intermittent leaks. Patient is on fentanyl which I cut down to 1 mcg/kg/h and she is on propofol at 50. IV fluids at KVO, patient is do not feeding at present mostly because she is scheduled to undergo a PEG tube placement and tracheostomy today. CBC is relatively normal except for hemoglobin of 8.1. Electrolytes showed a sodium of 147 bicarb history renal profile is normal Reevaluated today on 04/11/20, patient remains in the ICU, intubated and m echanically ventilated. Patient remains on assist control rate of 30 tidal volume is 250 FiO2 is 40% and PEEP of 5. ABG today showed a pO2 of 139 pCO2 of 81 pH of 7.27. Chest x-ray continues to show bilateral pneumothoraces, not expanding, unchanged. Continues to have 2 bilateral chest tubes. One every hour side. Continues to have some air leak in the right-sided chest tube, and intermittent leak in the left sided chest tube. Patient remains on propofol at 50 mcg/kg/m, she is also on fentanyl at 50 mcg/kg/m, Nimbex at 1 mcg/kg/m, IV fluid is at KVO. Patient is also on enteral feeding. Yesterday the patient was switched from pressure control to assist control mode of mechanical ventilation. And that seems to be working better for the patient today. Gases are actually a bit improving. Patient is scheduled to undergo tracheostomy and PEG tube placement today. CBC showed WBC count of 10 hemoglobin of 8.7 hematocrit of 30.6. Her sodium seems to be high today at 152 hence the patient will be placed on free water via nasogastric tube, and we'll switch her IV fluid to D5W. Will discontinue Lasix. 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 I did cut down the rate down to 26, decrease the flow to 65 L/m, ABG showed a pO2 of 119 pCO2 of 71 pH of 7.37. Patient is on Nimbex, propofol at 50 mcg/kg/m, fentanyl, and her IV fluid is D5W at 100 mL per hour. Patient went off Nimbex earlier today, however she was noted to be more tachypneic, tachycardic, has had to be placed back on Nimbex to adequately ventilate the patient. Portable chest x-ray showed basically no change, continues to have bilateral chest tubes, and her bilateral pneumothoraces are unchanged. Basic metabolic profile today is normal bicarb is 43. Renal profile is normal WBC count is 17.1 hemoglobin is 8.2 hematocrit is 30.1. Reevaluated today on 04/13/20, patient remains in the ICU, intubated and mechanically ventilated. Remains basically on the same ventilator settings assist control rate of 30, tidal volume is 250 rate is 30, FiO2 is 35%, and PEEP is 5. ABG earlier today showed a pO2 of 105 pCO2 of 80 9H of 7.23, and based on that ABG, assist control rate was increased. Patient remains on fentanyl, propofol, Nimbex, and her follow-up chest x-ray today showed persistent low relatively large right-sided pneumothorax,, thoracic surgery was consulted, and recommended another chest tube to be placed. Went ahead and placed another right-sided chest tube, definite improvement noted in the right-sided pneumothorax, but did not completely resolved. Multiple attempts were made to discontinue Nimbex, however the patient gets extremely agitated, tachypneic and tachycardic, and gets to the point where it is extremely difficult to ventilate the patient. Hence lay's back on Nimbex again today after a trial of weaning from Nimbex. Electrolytes were noted to be normal. Renal profile is normal. WBC count is 18.1 hemoglobin is 8.2. Reevaluated today on 04/14/20, patient remains intubated and mechanically jake tilated. Her ventilator settings are assist control rate of 30 and I increased that to 32. Tidal volume remains at 250, FiO2 35% and PEEP of 5. ABG this morning showed a pO2 of 77 pCO2 of 85 pH of 7.27. Patient had episodes of fever last night, tachycardic, and had episodes of supraventricular tachycardia, had to be Ambu bag at night but presently back on mechanical ventilation. Ask cardiology to evaluate the patient for possible endocarditis, previous transthoracic echocardiogram was nondiagnostic for endocarditis labs today showed elevated sodium of 150 potassium 3.9 chloride 109 bicarb is 41 BUN is 32 creatinine 0.5. WBC count is 20.7 hemoglobin is 7.9. Platelets are normal. Chest x-ray showed some pulmonary fibrotic changes with apical pleural thickening, the right-sided pneumothorax is definitely less, continues to have a small left apical pneumothorax despite chest tube placement. Intermittent air leak is noted in the second right sided chest tube. Reevaluated today on patient remains on mechanical ventilation, her ventilator settings are assist control rate of 32 tidal volume is 250 FiO2 35% and PEEP of 5. ABG today showed a pO2 of 114 pCO2 of 73 and pH of 7.39, actually this is the best ABG documented on this patient since admission. Her hemoglobin however today is 6.7, and I plan to transfuse the patient 1 unit of packed RBCs. Electrolytes are normal bicarb is 46, and renal profile is normal. Chest x-ray showed bilateral pulmonary fibrotic changes along with apical pleural thickening, scattered areas of infiltrates or edema noted bilaterally. Small left apical pneumothorax persists, continues to have chest tubes, 2 chest tubes on the right side, and one chest tube on the left side, very minimal intermittent air leak noted in the right-sided chest tube #2. No pneumothorax on the right side, patient remains on propofol at 40 mcg/kg/m, fentanyl at 4 mcg/kg/h, she is also on Nimbex 3 mcg/kg/m, and I have ordered to DC Nimbex. She is on enteral feeding vital Hp at 33 mL per hour. IV fluid is D5W was at 1 50 mL per hour because of her hypernatremia, however now that the sodium is corrected I cut it down to 100 mL/h. Objective - Vital Signs Vital signs: Vital Signs Temp 98.2 F 04/15/20 12:00 Pulse 61 04/15/20 12:49 Resp 32 H 04/15/20 12:00 BP 92/53 04/15/20 12:00 Pulse Ox 98 04/15/20 12:00 Intake & Output 04/14/20 04/15/20 04/15/20 18:59 06:59 18:59 Intake Total 2353.204 2820.993 954.613 Output Total 798 1889 205 Balance 1555.204 931.993 749.613 Weight 46.5 kg Intake: IV 1330 2034 512 Dextrose 5% in Water 1, 400 000 ml @ 100 mls/hr IV . Q10H [facility] Rx#:[id number] Dextrose 5% in Water 1, 300 1950 500 000 ml @ 100 mls/hr IV . Q10H [facility] Rx#:[id number] Pressure bag 30 24 12 Sodium Chloride 0.9% 1, 600 60 000 ml @ 100 mls/hr IV . Q10H [facility] Rx#:[id number] Intake, IV Titration 468.204 267.993 214.613 Amount Cisatracurium 200 mg In 118.204 62.868 Sodium Chloride 0.9% 180 ml @ 1 MCG/KG/MIN 3.12 mls/hr IV .Q24H [facility] Rx#: [id number] fentaNYL (PF) 2,500 mcg 250 107.723 89.9 In Sodium Chloride 0.9% 200 ml @ Per Protocol IV .Q0M [facility] Rx#:[id number] propofoL 1,000 mg In 100 160.27 61.845 Empty Bag 1 bag @ Titrate IV .Q0M [facility] Rx#: [id number] Tube Feeding 495 429 198 Blood Product 0 Rc Pheresis As-3 Unit 0 [id number] Other 60 90 30 Output: Chest Tube Drainage 8 99 20 Chest Tube Left 5 64 Chest Tube Right 0 7 Chest Tube Right Anterior 3 28 20 Chest Urine 790 1790 185 Other: Voiding Method Indwelling Catheter Indwelling Catheter Indwelling Catheter # Voids 1 ABP, PAP, CO, CI - Last Documented Arterial Blood Pressure 112/47 - Exam Gen.: Revealed a 29-year-old female, extremely frail and emaciated, malnourished, on mechanical ventilation Head atraumatic, normocephalic. HEENT: PERRLA, EOMI, neck, no neck masses, no JVD, no stridor.. CHEST EXAMINATION: Trachea is central. Symmetrical expansion.bilateral diminished air entry and wheezing. 2 right-sided chest tubes noted and 1 left- sided chest tube is noted. CARDIAC: Normal S1, S2 with no gallops. No murmurs ABDOMEN: Soft. Bowel sounds normal. No organomegaly. No abdominal bruits. Extremities: reveal no edema. No clubbing or cyanosis Neurologically sedated, and paralyzed, on multiple drips including Nimbex, fentanyl, and propofol. Skin: No rash or skin lesions. Psychiatric: Could not assess. Patient is sedated Musculoskeletal: Significant muscle wasting noted bilaterally and the patient is extremely frail - Labs CBC & Chem 7: 04/15/20 05:30 04/15/20 05:30 Labs: Abnormal Lab Results - Last 24 Hours (Table) 04/14/20 04/15/20 04/15/20 Range/Units 17:22 01:01 05:30 WBC 16.2 H (3.8-10.6) k/uL RBC 2.96 L (3.80-5.40) m/uL Hgb 6.7 L* (11.4-16.0) gm/dL Hct 23.0 L (34.0-46.0) % MCV 77.7 L (80.0-100.0) fL MCH 22.5 L (25.0-35.0) pg MCHC 29.0 L (31.0-37.0) g/dL RDW 17.4 H (11.5-15.5) % Neutrophils # 15.0 H (1.3-7.7) k/uL Lymphocytes # 0.7 L (1.0-4.8) k/uL ABG pCO2 (35-45) mmHg ABG pO2 (83-108) mmHg ABG HCO3 (21-25) mmol/L ABG Total CO2 (19-24) mmol/L ABG O2 Saturation (94-97) % Carbon Dioxide (22-30) mmol/L BUN (7-17) mg/dL Creatinine (0.52-1.04) mg/dL Glucose (74-99) mg/dL POC Glucose (mg/dL) 166 H 149 H (75-99) mg/dL Calcium (8.4-10.2) mg/dL Total Protein (6.3-8.2) g/dL Albumin (3.5-5.0) g/dL Crossmatch 04/15/20 04/15/20 04/15/20 Range/Units 05:30 05:35 09:17 WBC (3.8-10.6) k/uL RBC (3.80-5.40) m/uL Hgb (11.4-16.0) gm/dL Hct (34.0-46.0) % MCV (80.0-100.0) fL MCH (25.0-35.0) pg MCHC (31.0-37.0) g/dL RDW (11.5-15.5) % Neutrophils # (1.3-7.7) k/uL Lymphocytes # (1.0-4.8) k/uL ABG pCO2 (35-45) mmHg ABG pO2 (83-108) mmHg ABG HCO3 (21-25) mmol/L ABG Total CO2 (19-24) mmol/L ABG O2 Saturation (94-97) % Carbon Dioxide 46 H* (22-30) mmol/L BUN 32 H (7-17) mg/dL Creatinine 0.38 L (0.52-1.04) mg/dL Glucose 165 H (74-99) mg/dL POC Glucose (mg/dL) 168 H (75-99) mg/dL Calcium 8.2 L (8.4-10.2) mg/dL Total Protein 4.9 L (6.3-8.2) g/dL Albumin 2.4 L (3.5-5.0) g/dL Crossmatch See Detail 04/15/20 04/15/20 Range/Units 10:07 11:59 WBC (3.8-10.6) k/uL RBC (3.80-5.40) m/uL Hgb (11.4-16.0) gm/dL Hct (34.0-46.0) % MCV (80.0-100.0) fL MCH (25.0-35.0) pg MCHC (31.0-37.0) g/dL RDW (11.5-15.5) % Neutrophils # (1.3-7.7) k/uL Lymphocytes # (1.0-4.8) k/uL ABG pCO2 73 H* (35-45) mmHg ABG pO2 114 H (83-108) mmHg ABG HCO3 43 H* (21-25) mmol/L ABG Total CO2 46 H (19-24) mmol/L ABG O2 Saturation 99.5 H (94-97) % Carbon Dioxide (22-30) mmol/L BUN (7-17) mg/dL Creatinine (0.52-1.04) mg/dL Glucose (74-99) mg/dL POC Glucose (mg/dL) 162 H (75-99) mg/dL Calcium (8.4-10.2) mg/dL Total Protein (6.3-8.2) g/dL Albumin (3.5-5.0) g/dL Crossmatch Microbiology - Last 24 Hours (Table) 04/13/20 18:41 Blood Culture - Preliminary Blood No Growth after 24 hours 04/13/20 19:01 Blood Culture - Preliminary Blood No Growth after 24 hours Assessment and Plan Assessment: Impression: Acute hypoxic respiratory failure with bilateral infiltrates, improving Acute exacerbation of COPD. Bilateral pneumothoraces secondary to barotrauma. Status post placement of one left and 2 right-sided chest tubes for bilateral pneumothoraces. History of IV drug abuse. History of seizure disorder. Generalized anxiety disorder. Remote history of acute lymphocytic leukemia, in remission. Severe malnutrition, BMI is 20.3, this is protein calorie malnutrition, severe in nature. Chronic hypercapnic respiratory failure with metabolic compensation. Hypernatremia with free water deficit, improving with free water given. Decreased IV fluids rate to 100 mL/h remains D5W for now. Status post tracheostomy and PEG tube placement on 04/11/20. Recommendation: Discontinue Nimbex, possibly decrease the dose of fentanyl, and maintain the patient on propofol if possible only. Continue present supportive care measures. Continue ventilatory support. Continue nutritional support. Continue antibiotics. Continue bronchodilators and IV Solu-Medrol. Continue PEG tube feeding Continue GI and DVT prophylaxis. Continue D5W. At 100 mL/h. Continue to monitor electrolytes especially sodium. Prognosis is extremely poor and guarded Critical care time is over 30, minutes. Time with Patient: Greater than 30
[2020-04-15] MEDS ORDERED: LACTULOSE 20 GM/30 ML CUP PO PRN (17:43)
[2020-04-15 18:05] LABS: Glucose,Whole Blood 147 mg/dL (75-99)
[2020-04-15 18:48] LABS: Anisocytosis Slight; Basophils # (A) 0.1 k/uL (0-0.2); Basophils % (A) 0 %; Eosinophils % (A) 0 %; HCT 25.4 % (34.0-46.0); HGB 7.6 gm/dL (11.4-16.0); Hypochromasia Marked; Lymphocytes # (A) 0.9 k/uL (1.0-4.8); Lymphocytes % (A) 6 %; MCHC 29.8 g/dL (31.0-37.0); MCV 77.1 fL (80.0-100.0); Microcytosis Slight; Monocytes # (A) 0.6 k/uL (0-1.0); Monocytes % (A) 4 %; Neutrophils # (A) 14.6 k/uL (1.3-7.7); Neutrophils % (A) 90 %; Platelet Count 181 k/uL (150-450); Poikilocytosis Moderate; WBC 16.3 k/uL (3.8-10.6)
[2020-04-15 23:23] LABS: Glucose,Whole Blood 173 mg/dL (75-99)
[2020-04-16] MEDS: CISATRACURIUM 200 MG in SODIUM CHLORIDE 0.9% 180 ML IV SCH ×3 (00:36→19:31)
[2020-04-16 04:08] LABS: Glucose,Whole Blood 141 mg/dL (75-99)
[2020-04-16 04:19] LABS: Anisocytosis Slight; Basophils % (A) 0 %; Eosinophils % (A) 0 %; HCT 29.6 % (34.0-46.0); Hypochromasia Marked; Lymphocytes # (A) 0.9 k/uL (1.0-4.8); Lymphocytes % (A) 5 %; MCH 23.5 pg (25.0-35.0); MCHC 30.7 g/dL (31.0-37.0); MCV 76.7 fL (80.0-100.0); Mean Platelet Volume 7.5; Microcytosis Slight; Monocytes # (A) 0.6 k/uL (0-1.0); Monocytes % (A) 3 %; Neutrophils % (A) 91 %; Platelet Count 179 k/uL (150-450); Poikilocytosis Moderate; RBC 3.86 m/uL (3.80-5.40); RDW 17.3 % (11.5-15.5); WBC 17.6 k/uL (3.8-10.6)
[2020-04-16 04:31] LABS: HGB 9.1 gm/dL (11.4-16.0)
[2020-04-16 04:32] LABS: African American GFR (CKD) >90 (>60 ml/min/1.73 sqM); Blood Urea Nitrogen 30 mg/dL (7-17); Calcium 8.2 mg/dL (8.4-10.2); Chloride 95 mmol/L (98-107); Glucose 141 mg/dL (74-99); Non-African American GFR(CKD) >90 (>60 ml/min/1.73 sqM); Potassium 3.7 mmol/L (3.5-5.1); Sodium 137 mmol/L (137-145)
[2020-04-16 04:39] LABS: Anion Gap 1 mmol/L
[2020-04-16 04:41] LABS: Carbon Dioxide 41 mmol/L (22-30)
[2020-04-16] MEDS ORDERED: Potassium Replacement Protocol 1 EACH MISC MISCELLANE PRN (04:43)
[2020-04-16 04:45] LABS: ABG Base Excess 15.1 mmol/L; ABG Oxygen Saturation 98.3 % (94-97); ABG PH 7.36 (7.35-7.45); ABG PO2 107 mmHg (83-108); ABG TCO2 43 mmol/L (19-24)
[2020-04-16] MEDS: ARTIFICIAL TEARS-HYPROMELLOSE DROPS 15 ML BTL BOTH EYES SCH ×6 (04:49→23:26)
[2020-04-16] MEDS: DEXTROSE 5% IN WATER 1,000 ML IV SCH ×2 (04:50→11:16)
--- NOTE | 2020-04-16 04:52 | PN ---
PROGRESS NOTE DATE OF SERVICE: 04/15/2020 REASON FOR FOLLOWUP: Pneumonia. INTERVAL HISTORY: The patient is currently afebrile. The patient is hemodynamically stable, not on pressor support. FiO2 is currently 35%. No significant purulent secretion through the ET or diarrhea reported by the nursing staff. PHYSICAL EXAMINATION: Blood pressure is 142/86, pulse 106, temperature 98.3. She is 97% on 35% FiO2. General description is a middle-aged female lying in bed in no distress. RESPIRATORY SYSTEM: Unlabored breathing, decreased breath sounds at the bases. No wheeze. HEART: S1, S2. Regular rate and rhythm. ABDOMEN: Soft. No tenderness. LABS: Hemoglobin 7.6, white count 16.3, BUN of 32, creatinine 0.38. Blood culture repeat and sputum so far negative. DIAGNOSTIC IMPRESSION AND PLAN: Patient with acute respiratory failure which is multifactorial in this patient with possible component of pneumonia. So far sputum has been negative for pathogen. Patient on cefepime to continue to finish a 2-week course of therapy and a close outpatient followup. MMODL / IJN: [id number] /
[2020-04-16] MEDS ORDERED: POTASSIUM BICARBONATE/CIT AC 20 MEQ TABLET.EFF NG-TUBE SCH (05:00)
[2020-04-16] MEDS: INSULIN ASPART (NovoLOG) 100 UNIT/ML VIAL SQ SCH ×2 (05:11→12:58)
[2020-04-16] MEDS: methylPREDNISolone SOD SUCCI 125 MG/2 ML VIAL IV SCH ×2 (05:11→12:58)
[2020-04-16 05:58] LABS: Allen Test Performed? no
[2020-04-16] MEDS: FERROUS SULFATE 325 MG TAB PO SCH ×2 (07:04→18:06)
[2020-04-16] MEDS: IPRATROPIUM-ALBUTEROL 3 ML NEB INHALATION SCH ×3 (07:14→14:55)
--- NOTE | 2020-04-16 07:29 | XR ---
EXAMINATION TYPE: XR chest 1V DATE OF EXAM: 04/16/2020 COMPARISON: 04/15/2020 HISTORY: 29-year-old female tracheostomy TECHNIQUE: Single frontal view of the chest is obtained. FINDINGS: Tracheostomy cannula remains in place. Heart normal size. Diffuse interstitial changes and patchy rae ateral airspace disease may be slightly worsened. 2 right basilar chest tubes. A single chest tube on the left with redemonstrated small left-sided pneumothorax. This is slightly smaller at 1.2 cm at th e apex versus 1.6 cm, previously. IMPRESSION: 1. Bilateral interstitial and patchy airspace disease slightly worsened. 2. Small left-sided pneumothorax slightly decreased in size measuring 1.2 cm at the apex versus 1.6 c m, previously.
[2020-04-16] MEDS ORDERED: CISATRACURIUM 2 MG/ML 5 ML VIAL IV ONE ×2 (08:27→08:29)
--- NOTE | 2020-04-16 09:23 | PN ---
PROGRESS NOTE PULMONARY/CRITICAL CARE PROGRESS NOTE: DATE OF SERVICE: 04/16/2020 Critical care time is 34 minutes. This is a patient who was admitted way back on April 02. She admitted with a diagnosis of pneumonia and asthma exacerbation. She was intubated for acute respiratory failure on April 05. A trach and PEG were performed on April 11 for failure to wean from mechanical ventilation. She also developed bilateral pneumothoraces. She had her first right chest tube placed on April 07. Her first left to chest tube placed on April 09 and a second right chest tube on 04/13. Currently, she is on the volume assist-control mode rate of 32, but breathing 44 times a minute, tidal volume 250, FiO2 of 35%, PEEP of 5. Blood gases show a PO2 of 107, pCO2 of 73, pH of 7.36. She is reportedly on Nimbex at 10 mcg/kg per minute, but still breathing at 40 times a minute, fentanyl at 7 mcg/kg per hour, D5W at 100 mL an hour, propofol at 60 mcg/kg per minute and Vital high-protein at 33, which is goal. She has a history of IV drug abuse and seizure disorder as well as generalized anxiety disorder. She also has a remote history of acute lymphocytic leukemia, currently in remission. Current vital signs are reviewed, her temperature is 98.2, heart rate 128, respiratory rate is anywhere from 40-46 breaths per minute. Despite apparently being paralyzed, blood pressure 125/81 mean 95, and saturations are 96% on 35% FiO2 and 5 of PEEP. Currently sedated. HEENT: Examination is grossly unremarkable. Train of 4 monitor noted on the right side of the forehead. Neck is supple. Midline tracheostomy. No adenopathy. CARDIOVASCULAR: Examination reveals tachycardia. Heart rate 128. It is regular. LUNGS: Reveal noisy chest. Diffuse coarse rhonchi. ABDOMEN: Soft, bowel sounds are not noted. EXTREMITIES: Intact. No edema. SKIN: Without rash. NEUROLOGIC: Examination cannot be adequately assessed. LABS: Reviewed. White count 17.6, hemoglobin 9.1, hematocrit 29.6, platelet count 179,000, sodium 137, potassium 3.7, chloride 95, CO2 of 41. Anion gap is 1, BUN and creatinine were 30 and 0.34. Culture data is negative including bronch washes. Current chest x-ray finding shows some bilateral patchy airspace disease and a small left-sided pneumothorax. CURRENT MEDICATIONS: Reviewed. She is currently on Tylenol, Artificial Tears, BuSpar, cefepime, chlorhexidine, Nimbex, D5W at 100 mL an hour, Lovenox, Pepcid, fentanyl, iron, insulin, DuoNeb, lactulose, Ativan, Solu-Medrol, Zofran, and potassium replacement, as well as propofol. ASSESSMENT: 1. Acute hypoxemic respiratory failure requiring intubation and mechanical ventilation on April 05, with failure to wean, and subsequent tracheostomy and PEG tube placement on April 11, 2020. 2. Acute exacerbation of asthma. 3. Bilateral pneumothoraces, status post two right chest tubes and one left chest tube. 4. History of IV drug abuse. 5. History of seizure disorder. 6. History of generalized anxiety disorder. 7. Remote history of acute lymphocytic leukemia, currently in remission. 8. Severe malnutrition. 9. Chronic hypercapnic respiratory failure. 10.General medical debility. PLAN: We are having some sort of issue with the medication. She apparently is on 10 mcg/kg per minute of Nimbex and still not paralyzed. She is overbreathing the ventilator. Her blood gases are reasonable. Will see if we cannot troubleshoot that problem. Despite giving her another 15 mg of Nimbex IV push, followed by a flush, the patient is still breathing at 40-44 times a minute. Additional recommendations and suggestions are forthcoming. Will continue tube feeds. Continue sedation. We will add some Pulmicort and Perforomist. No additional recommendations are made. Unnecessary medications are discontinued. Critical care time 34 minutes. MMODL / IJN: [id number] /
--- NOTE | 2020-04-16 09:25 | P.PN ---
Subjective Progress Note Date: 04/16/20 Principal diagnosis: Bilateral pneumothoraces secondary to barotrauma, acute hypoxic respiratory failure requiring mechanical ventilation, pneumonia, acute exacerbation of COPD. 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 Status post bronchoscopy 04/04/2020 Status post right pleural chest tube placement on 04/07/2020 and 04/13/2020, left pleural chest tube placed 04/09/2020. Status post tracheostomy and PEG tube placement 04/11/2020 The patient was seen and examined this morning with Dr. Hernandez, she remains lying in the intensive care unit mechanically ventilated, sedated, and paralyzed. Two right pleural and one left pleural chest tube remained present, no witnessed air leak this morning although nursing reports intermittent air leak with movement. Afebrile for the last 24 hours. Remains on IV cefepime, Solu-Medrol, propofol, Nimbex. Blood cultures, sputum cultures, bronchial washing cultures remain neg ative. Remains in sinus rhythm and hemodynamically stable on no inotropes or pressors. Objective - Vital Signs Vital signs: Vital Signs Temp 98.0 F 04/16/20 04:00 Pulse 77 04/16/20 07:37 Resp 32 H 04/16/20 07:00 BP 142/93 04/16/20 07:00 Pulse Ox 98 04/16/20 07:00 Intake & Output 04/15/20 04/16/20 04/16/20 18:59 06:59 18:59 Intake Total 2315.533 2423.890 241.957 Output Total 733 867 20 Balance 4623.083 7325.890 221.957 Weight 49.5 kg Intake: IV 1233 1336 103 Cefepime 2 gm In Sodium 100 Chloride 0.9% 100 ml @ 25 mls/hr IVPB Q12HR [facility] Rx #:[id number] Dextrose 5% in Water 1, 1200 1200 100 000 ml @ 100 mls/hr IV . Q10H [facility] Rx#:[id number] Pressure bag 33 36 3 Intake, IV Titration 286.533 621.890 105.957 Amount Cisatracurium 200 mg In 169.445 30.365 Sodium Chloride 0.9% 180 ml @ 1 MCG/KG/MIN 2.79 mls/hr IV .Q24H [facility] Rx#: [id number] Cisatracurium 200 mg In 62.868 Sodium Chloride 0.9% 180 ml @ 1 MCG/KG/MIN 3.12 mls/hr IV .Q24H [facility] Rx#: [id number] fentaNYL (PF) 2,500 mcg 110.67 281.093 46.53 In Sodium Chloride 0.9% 200 ml @ Per Protocol IV .Q0M [facility] Rx#:[id number] propofoL 1,000 mg In 112.995 171.352 29.062 Empty Bag 1 bag @ Titrate IV .Q0M [facility] Rx#: [id number] Tube Feeding 396 396 33 Blood Product 310 Rc Pheresis As-3 Unit 310 [id number] Other 90 70 Output: Chest Tube Drainage 23 182 Chest Tube Left 4 120 Chest Tube Right 15 0 Chest Tube Right Anterior 4 62 Chest Urine 710 685 20 Other: Voiding Method Indwelling Catheter Indwelling Catheter ABP, PAP, CO, CI - Last Documented Arterial Blood Pressure 146/86 - Constitutional Constitutional Comment(s): Mechanically ventilated, sedated with propofol, paralyzed with Nimbex General appearance: Present: no acute distress - Neck Details: #8 Bivona trach present - Respiratory Details: Lungs sounds diminished bilaterally. Respirations even, nonlabored on mechanical ventilation. Current ventilator settings FiO2 35%, tidal volume to 50, respiratory rate 32, PEEP 5. ABGs this morning 7.36/73/107/41/98% on those vent settings. Right pleural chest tubes to continuous wall suction, [address] ainage out of chest tube #1 in the last 24 hours, 76 mL serous drainage out of chest tube #2 in the last 24 hours. Left pleural chest tube present to continuous wall suction, 145 mL serous drainage in the last 24 hours. No witnessed air leaks at this time - Cardiovascular Details: S1, S2 present. Regular rate and rhythm, sinus rhythm on telemetry. Palpable peripheral pulses bilaterally. No edema present. Bilateral SCDs present. Right radial arterial line, right femoral triple-lumen central line present. - Gastrointestinal Gastrointestinal Comment(s): Abdomen soft, nondistended. Active bowel sounds present 4 quadrants. PEG tube in place, tube feeding infusing at 33 mL/h - Genitourinary Genitourinary Comment(s): Ac present draining clear, yellow urine. Output 20-25 mL per hour - Integumentary Integumentary Comment(s): Skin is warm and dry. - Neurologic Neurologic Comment(s): Unable to assess, patient is sedated and paralyzed on mechanical ventilation - Musculoskeletal Musculoskeletal Comment(s): Unable to assess, patient is sedated and paralyzed on mechanical ventilation - Psychiatric Psychiatric Comment(s): Unable to assess, patient is sedated and paralyzed on mechanical ventilation - Allied health notes Allied health notes reviewed: nursing - Labs CBC & Chem 7: 04/16/20 04:05 04/16/20 04:05 Labs: Abnormal Lab Results - Last 24 Hours (Table) 04/15/20 04/15/20 04/15/20 Range/Units 09:17 10:07 11:59 WBC (3.8-10.6) k/uL RBC (3.80-5.40) m/uL Hgb (11.4-16.0) gm/dL Hct (34.0-46.0) % MCV (80.0-100.0) fL MCH (25.0-35.0) pg MCHC (31.0-37.0) g/dL RDW (11.5-15.5) % Neutrophils # (1.3-7.7) k/uL Lymphocytes # (1.0-4.8) k/uL ABG pCO2 73 H* (35-45) mmHg ABG pO2 114 H (83-108) mmHg ABG HCO3 43 H* (21-25) mmol/L ABG Total CO2 46 H (19-24) mmol/L ABG O2 Saturation 99.5 H (94-97) % Chloride (98-107) mmol/L Carbon Dioxide (22-30) mmol/L BUN (7-17) mg/dL Creatinine (0.52-1.04) mg/dL Glucose (74-99) mg/dL POC Glucose (mg/dL) 162 H (75-99) mg/dL Calcium (8.4-10.2) mg/dL Crossmatch See Detail 04/15/20 04/15/20 04/15/20 Range/Units 18:00 18:03 23:22 WBC 16.3 H (3.8-10.6) k/uL RBC 3.30 L (3.80-5.40) m/uL Hgb 7.6 L (11.4-16.0) gm/dL Hct 25.4 L (34.0-46.0) % MCV 77.1 L (80.0-100.0) fL MCH 23.0 L (25.0-35.0) pg MCHC 29.8 L (31.0-37.0) g/dL RDW 17.0 H (11.5-15.5) % Neutrophils # 14.6 H (1.3-7.7) k/uL Lymphocytes # 0.9 L (1.0-4.8) k/uL ABG pCO2 (35-45) mmHg ABG pO2 (83-108) mmHg ABG HCO3 (21-25) mmol/L ABG Total CO2 (19-24) mmol/L ABG O2 Saturation (94-97) % Chloride (98-107) mmol/L Carbon Dioxide (22-30) mmol/L BUN (7-17) mg/dL Creatinine (0.52-1.04) mg/dL Glucose (74-99) mg/dL POC Glucose (mg/dL) 147 H 173 H (75-99) mg/dL Calcium (8.4-10.2) mg/dL Crossmatch 04/16/20 04/16/20 04/16/20 Range/Units 04:05 04:05 04:06 WBC 17.6 H (3.8-10.6) k/uL RBC (3.80-5.40) m/uL Hgb 9.1 L D (11.4-16.0) gm/dL Hct 29.6 L (34.0-46.0) % MCV 76.7 L (80.0-100.0) fL MCH 23.5 L (25.0-35.0) pg MCHC 30.7 L (31.0-37.0) g/dL RDW 17.3 H (11.5-15.5) % Neutrophils # 16.0 H (1.3-7.7) k/uL Lymphocytes # 0.9 L (1.0-4.8) k/uL ABG pCO2 (35-45) mmHg ABG pO2 (83-108) mmHg ABG HCO3 (21-25) mmol/L ABG Total CO2 (19-24) mmol/L ABG O2 Saturation (94-97) % Chloride 95 L (98-107) mmol/L Carbon Dioxide 41 H* (22-30) mmol/L BUN 30 H (7-17) mg/dL Creatinine 0.34 L (0.52-1.04) mg/dL Glucose 141 H (74-99) mg/dL POC Glucose (mg/dL) 141 H (75-99) mg/dL Calcium 8.2 L (8.4-10.2) mg/dL Crossmatch 04/16/20 Range/Units 04:44 WBC (3.8-10.6) k/uL RBC (3.80-5.40) m/uL Hgb (11.4-16.0) gm/dL Hct (34.0-46.0) % MCV (80.0-100.0) fL MCH (25.0-35.0) pg MCHC (31.0-37.0) g/dL RDW (11.5-15.5) % Neutrophils # (1.3-7.7) k/uL Lymphocytes # (1.0-4.8) k/uL ABG pCO2 73 H* (35-45) mmHg ABG pO2 (83-108) mmHg ABG HCO3 41 H* (21-25) mmol/L ABG Total CO2 43 H (19-24) mmol/L ABG O2 Saturation 98.3 H (94-97) % Chloride (98-107) mmol/L Carbon Dioxide (22-30) mmol/L BUN (7-17) mg/dL Creatinine (0.52-1.04) mg/dL Glucose (74-99) mg/dL POC Glucose (mg/dL) (75-99) mg/dL Calcium (8.4-10.2) mg/dL Crossmatch Microbiology - Last 24 Hours (Table) 04/13/20 19:01 Blood Culture - Preliminary Blood No Growth after 48 hours 04/13/20 18:41 Blood Culture - Preliminary Blood No Growth after 48 hours - Imaging and Cardiology Chest x-ray: report reviewed, image reviewed Assessment and Plan Assessment: 1. Bilateral pneumothoraces, secondary to barotrauma, status post right and left chest tube placement 2. Acute hypoxic respiratory failure requiring mechanical ventilation. Status post bronchoscopy, tracheostomy placement 3. Acute exacerbation of COPD 4. History of IV drug abuse 5. History of seizure disorder 6. Generalized anxiety disorder 7. Remote history of acute lymphocytic leukemia, status post chemotherapy treatments, currently in remission 8. Severe malnutrition 9. History of deep vein thrombosis Plan: 1. Continue right and left pleural chest tubes to low continuous wall suction - 20 cm H2O. Monitor for airleak and for pneumothorax resolution. 2. Ventilator, IV steroids, antibiotics, critical care management per pulmon ology 3. Will monitor daily labs and x-rays 4. DVT and GI prophylaxis. 5. Medical management of other comorbidities per primary care service 6. More recommendations to follow based on patient's progress. Time with Patient: Greater than 30
--- NOTE | 2020-04-16 09:51 | XR ---
EXAMINATION TYPE: XR chest 1V portable DATE OF EXAM: 04/16/2020 Comparison: Earlier today Clinical History: 29-year-old female central line placement Findings: Left subclavian CVC tip is in the right atrium. Bilateral chest tubes are redemonstrated, 2 on the ri ght and one on the left. Small left-sided pneumothorax redemonstrated measuring 1.5 cm from the apex versus 1.2 cm, previously. Heart upper limits of normal in size. Diffuse interstitial and patchy airs pace opacities persist without significant change. Positioning of the patient's tracheostomy cannula is unclear study. Impression: 1. Positioning of the patient's tracheostomy cannula is unclear on this exam. Only one end is visuali zed and that end projects over the distal trachea. Recommend repeat exam centered slightly higher to determine if this represents the proximal or distal end of the cannula. 2. New left subclavian CVC tip in the right atrium. 3. Bilateral chest tubes with redemonstrated small left-sided pneumothorax measuring 1.5 cm to the ap ex versus 1.2 cm, previously. 4. Diffuse interstitial and patchy airspace disease persists.
--- NOTE | 2020-04-16 10:33 | PCN ---
PROCEDURE NOTE PROCEDURE: Left subclavian triple-lumen catheter. PREOPERATIVE DIAGNOSIS: Administration of fluids and pressors. POSTOP DIAGNOSIS: Administration of fluids and pressors. E[employer]ER[employer] MARKETING SPECIALIST: Dr. Santizo. A time-out was completed verifying correct patient, procedure, site, positioning, and implant(s) or special equipment if applicable. The patient was placed in a dependent position appropriate for triple lumen catheter placement based on the vein to be cannulated. The patient's left shoulder was prepped and draped in sterile fashion. 1% Lidocaine was used to anesthetize the surrounding skin area. A triple lumen 9F Cordis catheter was introduced into the left subclavian using Seldinger technique. The catheter was threaded smoothly over the guide wire and appropriate blood return was obtained. Each lumen of the catheter was evacuated of air and flushed with sterile saline. The catheter was then sutured in place to the skin and a sterile dressing applied. Perfusion to the extremity distal to the point of catheter insertion was checked and found to be adequate. There was no immediate complication, there was good blood return from all 3 ports. A chest x-ray was ordered. The tip of catheter was seen in the junction of superior vena cava right atrium. The catheter was sutured in place. A sterile dressing was applied by the nurse. There was no immediate complication. The patient tolerated the procedure well. MMODL / IJN: [id number] /
[2020-04-16] MEDS: fentaNYL (PF) 2,500 MCG in SODIUM CHLORIDE 0.9% 200 ML IV SCH ×2 (10:34→22:29)
--- NOTE | 2020-04-16 11:05 | P.PN ---
Subjective Progress Note Date: 04/16/20 CHIEF COMPLAINT: Hypoxia HISTORY OF PRESENT ILLNESS: The patient is a 29-year-old female pre-existing his tory of methamphetamine abuse including IV drug abuse who was hospitalized at outside institution in [place] for pneumonia. Patient left AGAINST MEDICAL ADVICE and presented for her current hospitalization for hypoxia including difficulty with breathing. Diagnostic studies confirmed pneumonia. Patient remains in the ICU on mechanical ventilation, sedation and paralyzed. She still has chest tubes in place. She is status post tracheostomy and PEG tube placement on 04/11/2020. She is tolerating tube feedings. Tube feedings are currently at 33 mL per hour. She is afebrile. WBC is 17.6 PHYSICAL EXAM: VITAL SIGNS: Reviewed. GENERAL: Well-developed in no acute distress. HEENT: No sclera icterus. Extraocular movements grossly intact. Moist buccal mucosa. Head is atraumatic, normocephalic. Tracheostomy site is clean ABDOMEN: Soft. Nondistended. Nontender. PEG tube site clean dry and intact NEUROLOGIC: Depressed due to sedation ASSESSMENT: 1. Acute hypoxic respiratory failure status post tracheostomy 2. Moderate protein calorie malnutrition status post PEG tube placement 3. Bilateral pneumothoraces 4. IV drug abuse methamphetamine abuse PLAN: -Continue to titrate PEG tube feedings -Continue supportive care Physician Support Engineer note has been reviewed by physician. Signing provider agrees with the documented findings, assessment, and plan of care. Objective - Vital Signs Vital signs: Vital Signs Temp 98.2 F 04/16/20 08:00 Pulse 127 H 04/16/20 10:58 Resp 45 H 04/16/20 10:00 BP 126/82 04/16/20 10:00 Pulse Ox 99 04/16/20 10:00 Intake & Output 04/15/20 04/16/20 04/16/20 18:59 06:59 18:59 Intake Total 2315.533 2423.890 812.803 Output Total 733 867 50 Balance 2694.619 1580.890 762.803 Weight 49.5 kg Intake: IV 1233 1336 412 Cefepime 2 gm In Sodium 100 Chloride 0.9% 100 ml @ 25 mls/hr IVPB Q12HR [facility] Rx #:[id number] Dextrose 5% in Water 1, 1200 1200 400 000 ml @ 100 mls/hr IV . Q10H [facility] Rx#:[id number] Pressure bag 33 36 12 Intake, IV Titration 286.533 621.890 238.803 Amount Cisatracurium 200 mg In 169.445 38.735 Sodium Chloride 0.9% 180 ml @ 1 MCG/KG/MIN 2.79 mls/hr IV .Q24H [facility] Rx#: [id number] Cisatracurium 200 mg In 62.868 Sodium Chloride 0.9% 180 ml @ 1 MCG/KG/MIN 3.12 mls/hr IV .Q24H [facility] Rx#: [id number] fentaNYL (PF) 2,500 mcg 110.67 281.093 128.535 In Sodium Chloride 0.9% 200 ml @ Per Protocol IV .Q0M [facility] Rx#:[id number] propofoL 1,000 mg In 112.995 171.352 71.533 Empty Bag 1 bag @ Titrate IV .Q0M [facility] Rx#: [id number] Tube Feeding 396 396 132 Blood Product 310 Rc Pheresis As-3 Unit 310 [id number] Other 90 70 30 Output: Chest Tube Drainage 23 182 Chest Tube Left 4 120 Chest Tube Right 15 0 Chest Tube Right Anterior 4 62 Chest Urine 710 685 50 Other: Voiding Method Indwelling Catheter Indwelling Catheter ABP, PAP, CO, CI - Last Documented Arterial Blood Pressure 149/80 - Labs CBC & Chem 7: 04/16/20 04:05 04/16/20 04:05 Labs: Abnormal Lab Results - Last 24 Hours (Table) 04/15/20 04/15/20 04/15/20 Range/Units 09:17 11:59 18:00 WBC 16.3 H (3.8-10.6) k/uL RBC 3.30 L (3.80-5.40) m/uL Hgb 7.6 L (11.4-16.0) gm/dL Hct 25.4 L (34.0-46.0) % MCV 77.1 L (80.0-100.0) fL MCH 23.0 L (25.0-35.0) pg MCHC 29.8 L (31.0-37.0) g/dL RDW 17.0 H (11.5-15.5) % Neutrophils # 14.6 H (1.3-7.7) k/uL Lymphocytes # 0.9 L (1.0-4.8) k/uL ABG pCO2 (35-45) mmHg ABG HCO3 (21-25) mmol/L ABG Total CO2 (19-24) mmol/L ABG O2 Saturation (94-97) % Chloride (98-107) mmol/L Carbon Dioxide (22-30) mmol/L BUN (7-17) mg/dL Creatinine (0.52-1.04) mg/dL Glucose (74-99) mg/dL POC Glucose (mg/dL) 162 H (75-99) mg/dL Calcium (8.4-10.2) mg/dL Crossmatch See Detail 04/15/20 04/15/20 04/16/20 Range/Units 18:03 23:22 04:05 WBC 17.6 H (3.8-10.6) k/uL RBC (3.80-5.40) m/uL Hgb 9.1 L D (11.4-16.0) gm/dL Hct 29.6 L (34.0-46.0) % MCV 76.7 L (80.0-100.0) fL MCH 23.5 L (25.0-35.0) pg MCHC 30.7 L (31.0-37.0) g/dL RDW 17.3 H (11.5-15.5) % Neutrophils # 16.0 H (1.3-7.7) k/uL Lymphocytes # 0.9 L (1.0-4.8) k/uL ABG pCO2 (35-45) mmHg ABG HCO3 (21-25) mmol/L ABG Total CO2 (19-24) mmol/L ABG O2 Saturation (94-97) % Chloride (98-107) mmol/L Carbon Dioxide (22-30) mmol/L BUN (7-17) mg/dL Creatinine (0.52-1.04) mg/dL Glucose (74-99) mg/dL POC Glucose (mg/dL) 147 H 173 H (75-99) mg/dL Calcium (8.4-10.2) mg/dL Crossmatch 04/16/20 04/16/20 04/16/20 Range/Units 04:05 04:06 04:44 WBC (3.8-10.6) k/uL RBC (3.80-5.40) m/uL Hgb (11.4-16.0) gm/dL Hct (34.0-46.0) % MCV (80.0-100.0) fL MCH (25.0-35.0) pg MCHC (31.0-37.0) g/dL RDW (11.5-15.5) % Neutrophils # (1.3-7.7) k/uL Lymphocytes # (1.0-4.8) k/uL ABG pCO2 73 H* (35-45) mmHg ABG HCO3 41 H* (21-25) mmol/L ABG Total CO2 43 H (19-24) mmol/L ABG O2 Saturation 98.3 H (94-97) % Chloride 95 L (98-107) mmol/L Carbon Dioxide 41 H* (22-30) mmol/L BUN 30 H (7-17) mg/dL Creatinine 0.34 L (0.52-1.04) mg/dL Glucose 141 H (74-99) mg/dL POC Glucose (mg/dL) 141 H (75-99) mg/dL Calcium 8.2 L (8.4-10.2) mg/dL Crossmatch Microbiology - Last 24 Hours (Table) 04/13/20 19:01 Blood Culture - Preliminary Blood No Growth after 48 hours 04/13/20 18:41 Blood Culture - Preliminary Blood No Growth after 48 hours
[2020-04-16] MEDS: CHLORHEXIDINE GLUCONATE 15 ML CUP MUCOUS MEM SCH (11:13)
[2020-04-16] MEDS: ENOXAPARIN 40 MG/0.4 ML SYRINGE SQ SCH (11:13)
[2020-04-16] MEDS: FAMOTIDINE 20 MG/2 ML VIAL IV SCH (11:14)
[2020-04-16] MEDS: CEFEPIME 2 GM in SODIUM CHLORIDE 0.9% 100 ML IVPB SCH (11:14)
[2020-04-16] MEDS: busPIRone HCl 5 MG TAB PO SCH (11:14)
[2020-04-16 12:14] LABS: Glucose,Whole Blood 170 mg/dL (75-99)
[2020-04-16 13:26] VITALS: BMI 21.3
[2020-04-16] MEDS ORDERED: MORPHINE SULFATE 2 MG/ML SYRINGE IV PRN (17:20)
[2020-04-16] MEDS ORDERED: ATROPINE OPHTH SOLN 1% 5ML BTL SUBLINGUAL PRN (17:20)
[2020-04-16] MEDS ORDERED: MORPHINE SULFATE (100 MG/2 ML) 100 MG in SODIUM CHLORIDE 0.9% 100 ML IV SCH (17:30)
[2020-04-16] MEDS ORDERED: SCOPOLAMINE 1.5MG/72HR PATCH TRANSDERM SCH (17:30)
[2020-04-16] MEDS: MORPHINE SULFATE 4 MG/ML SYRINGE IV PRN ×2 (18:18→18:50)
[2020-04-16] MEDS ORDERED: DEXTROSE 5% IN WATER 1,000 ML IV ONE (19:08)
[2020-04-16] MEDS ORDERED: NALOXONE 0.4 MG/ML 1 ML VIAL IV PRN (19:11)
[2020-04-16] MEDS ORDERED: fentaNYL (PF) 1,000 MCG in SODIUM CHLORIDE 0.9% 80 ML IV SCH (19:15)
[2020-04-16] MEDS ORDERED: FORMOTEROL FUMARATE 20 MCG/2 ML NEBU INHALATION SCH (20:00)
[2020-04-16] MEDS ORDERED: BUDESONIDE 1 MG/2 ML NEBU INHALATION SCH (20:00)
--- NOTE | 2020-04-16 20:05 | P.PN ---
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 Patient does have history of IV drug abuse and stopped using approximately 2 weeks ago. Patient was seen at outside hospital in [place] for difficulty in breathing. Patient left AGAINST MEDICAL ADVICE. Patient came to [place] to see her family and has been having worsening symptoms again with cough and dyspnea. Chest x-ray showed diffuse bilateral pleural parenchymal changes.Coronavirus PCR and influenza A and B negative.CT angiogram showed no evidence of pulmonary embolism. Patient is status post bronchoscopy with bronchial lavage on 04/04. Patient eventually need intubation and placed on mechanical ventilation for worsening respiratory failure. Her hospital course was complicated by right pneumothorax and chest tube was placed by surgery team. Today she developed left-sided pneumothorax with another chest tube was placed. Patient remains on broad-spectrum antibiotics with cefepime , she was on IV vancomycin which is a stopped now. Also she is on small doses of IV Lasix 20 mg daily and salmeterol 60 mg. Surgery team were consulted for PEG tube and tracheostomy placement 04/10/2020 Patient remains in the ICU for COPD and pneumonia, his currently on cefepime and IV Solu-Medrol. He is intubated on mechanical ventilation was managed closely by pulmonary/critical care team. As per the pulmonary team patient is doing better today. His hospital course is complicated by bilateral pneumothoraces status post bilateral chest tube. Also patient is undergoing PEG tube and tracheostomy placement Also patient is still tachycardic and tachypneic. Also patient is on Lasix 20 mg twice daily, was once daily yesterday 04/11/2020 Patient remains in the ICU on mechanical ventilation and looks patient is doing better with her oxygenation and depressed ventilation with pulmonary/critical care team followed closely. She still has bilateral chest tubes for bilateral pneumothoraces Patient underwent PEG tube placement and tracheostomy placement by surgery team Her sodium was trending up to 152, D5 W was started and Lasix was stopped. 04/12/2020 Patient remains in the ICU, on mechanical ventilation with pulmonary/critical care team on the case. Patient was tachycardic and tachypneic and she had to be placed back on the buttocks however generally there is normal change in her clinical condition. She still needs bilateral chest tubes for bilateral pneumothoraces. She status post PEG tube and tracheostomy by surgery team She remains on cefepime Solu-Medrol 03/13/2020 Patient remains in the ICU intubated and sedated, she is on mechanical ventilation, she status post PEG tube placement and tracheostomy. No much progress in her condition. Cardiothoracic surgery evaluated the patient for her chest tube management. She still have air leak on the right side. No surgical intervention further recommendation and to continue suction on blood pressure Patient remains on cefepime for her bilateral airway disease. Her hypernatremia is improved with D5W and currently she is on normal saline at 100 mL/h and sodium level is 140. Also she is on Solu-Medrol for her severe asthma. Pulmon elier/critical care team on the case. 04/14/2020 Patient remains in the ICU, not making much progress, she still intubated and on mechanical ventilation. She's [facility], clinical research technician, cardiothoracic surgery, infectious disease and Gen. surgery She remains on bilateral chest tube She remains on cefepime per ID recommendation She is also on Solu-Medrol 60 mg D5W was started. Sodium is 150. Prognosis remains guarded 04/15/2020 Patient remains in the ICU intubated and sedated, she still with bilateral thoracocentesis. Pulmonary/critical care on the team department to give 1 unit of blood transfusion. And patient continues with antral feeding.Patient continued on D5W for hypernatremia with close monitoring of sodium level. Car diothoracic surgery team were consulted and they recommended to continue with the conservative management for her chest tubes. She really did not make any progress regarding her healing. Prognosis remains very guarded Review of systems: N/a Active Medications Generic Name Dose Route Start Last Admin Trade Name Freq PRN Reason Stop Dose Admin Acetaminophen 650 mg 04/03/20 13:35 04/14/20 13:07 Acetaminophen Tab 325 Mg Tab PO 650 mg Q6HR PRN Administration Fever and/ or Pain Albuterol/Ipratropium 3 ml 04/02/20 17:41 04/04/20 02:02 Ipratropium-Albuterol 3 Ml Neb INHALATION 3 ml RT-Q4H PRN Administration Shortness Of Breath Or Wheezing Albuterol/Ipratropium 3 ml 04/02/20 20:00 04/14/20 23:13 Ipratropium-Albuterol 3 Ml Neb INHALATION Not Given RT-QID [facility] Artificial Tears 1 drops 04/12/20 04:00 04/15/20 03:13 Artificial Tears-Hypromellose Drops 15 Ml Btl BOTH EYES 1 drops Q4H [facility] Administration Buspirone HCl 7.5 mg 04/04/20 21:00 04/15/20 00:58 Buspirone Hcl 5 Mg Tab PO 7.5 mg BID [facility] Administration Chlorhexidine Gluconate 15 ml 04/05/20 21:00 04/14/20 19:58 Chlorhexidine Gluconate 15 Ml Cup MUCOUS MEM 15 ml BID [facility] Administration Enoxaparin Sodium 40 mg 04/03/20 09:00 04/14/20 12:46 Enoxaparin 40 Mg/0.4 Ml Syringe SQ 40 mg DAILY [facility] Administration Famotidine 20 mg 04/09/20 21:00 04/14/20 19:58 Famotidine 20 Mg/2 Ml Vial IV 20 mg Q12HR [facility] Administration Ferrous Sulfate 325 mg 04/05/20 07:30 04/14/20 16:32 Ferrous Sulfate 325 Mg Tab PO Not Given BID-W/MEALS [facility] Guaifenesin/Codeine Phosphate 10 ml 04/03/20 15:09 04/04/20 01:57 Guaifenesin-Coden 100-10mg/5ml 10 Ml Cup PO 10 ml Q6H PRN Administration Cough Cefepime HCl 2 gm/ Sodium 100 mls @ 25 mls/hr 04/03/20 10:30 04/14/20 19:57 Chloride IVPB 25 mls/hr Q12HR [facility] Administration Propofol 1,000 mg/ IV Solution 100 mls @ 0 mls/hr 04/05/20 10:45 04/14/20 21:54 IV 50 mcg/kg/min .Q0M [facility] 12.3 mls/hr Administration Protocol Titrate Norepinephrine Bitartrate 32 250 mls @ 1.23 mls/hr 04/05/20 11:15 04/14/20 12:30 mg/ Sodium Chloride IV Not Given .Q24H [facility] Protocol 0.05 MCG/KG/MIN Fentanyl Citrate 2,500 mcg/ 250 mls @ 0 mls/hr 04/09/20 15:00 04/15/20 04:33 Sodium Chloride IV 4 mcg/kg/hr .Q0M [facility] 18.6 mls/hr Titration Protocol Per Protocol Cisatracurium Besylate 200 mg/ 200 mls @ 3.12 mls/hr 04/10/20 22:30 04/15/20 03:02 Sodium Chloride IV 3 mcg/kg/min .Q24H [facility] 9.36 mls/hr Administration Protocol 1 MCG/KG/MIN Dextrose/Water 1,000 mls @ 150 mls/hr 04/14/20 08:30 04/15/20 00:54 Dextrose 5%-Water Iv Soln IV 150 mls/hr .Q6H40M [facility] Administration Insulin Aspart 0 unit 04/05/20 18:00 04/15/20 01:13 Insulin Aspart (Novolog) 100 Unit/Ml Vial SQ 2 unit Q6H [facility] Administration Protocol Lorazepam 1 mg 04/05/20 06:21 04/13/20 20:01 Lorazepam 2 Mg/Ml Inj IV 1 mg Q4HR PRN Administration Anxiety Methylprednisolone Sodium Succinate 60 mg 04/02/20 18:30 04/15/20 01:13 Methylprednisolone Sod Succi 125 Mg/2 Ml Vial IV 60 mg Q6HR [facility] Administration Ondansetron HCl 4 mg 04/03/20 15:08 04/03/20 16:14 Ondansetron 4 Mg/2 Ml Vial IVP 4 mg Q6HR PRN Administration Nausea And Vomiting Objective - Vital Signs Vital signs: Vital Signs Temp 98.2 F 04/15/20 16:00 Pulse 61 04/15/20 17:00 Resp 32 H 04/15/20 17:00 BP 89/49 04/15/20 17:00 Pulse Ox 99 04/15/20 17:00 Intake & Output 04/14/20 04/15/20 04/15/20 18:59 06:59 18:59 Intake Total 2353.204 2820.993 2107.613 Output Total 798 1889 633 Balance 1555.204 860.204 5975.613 Weight 46.5 kg Intake: IV 1330 2034 1130 Dextrose 5% in Water 1, 400 000 ml @ 100 mls/hr IV . Q10H [facility] Rx#:[id number] Dextrose 5% in Water 1, 300 1950 1100 000 ml @ 100 mls/hr IV . Q10H [facility] Rx#:[id number] Pressure bag 30 24 30 Sodium Chloride 0.9% 1, 600 60 000 ml @ 100 mls/hr IV . Q10H [facility] Rx#:[id number] Intake, IV Titration 468.204 267.993 214.613 Amount Cisatracurium 200 mg In 118.204 62.868 Sodium Chloride 0.9% 180 ml @ 1 MCG/KG/MIN 3.12 mls/hr IV .Q24H [facility] Rx#: [id number] fentaNYL (PF) 2,500 mcg 250 107.723 89.9 In Sodium Chloride 0.9% 200 ml @ Per Protocol IV .Q0M [facility] Rx#:[id number] propofoL 1,000 mg In 100 160.27 61.845 Empty Bag 1 bag @ Titrate IV .Q0M [facility] Rx#: [id number] Tube Feeding 495 429 363 Blood Product 310 Rc Pheresis As-3 Unit 310 [id number] Other 60 90 90 Output: Chest Tube Drainage 8 99 23 Chest Tube Left 5 64 4 Chest Tube Right 0 7 15 Chest Tube Right Anterior 3 28 4 Chest Urine 790 1790 610 Other: Voiding Method Indwelling Catheter Indwelling Catheter Indwelling Catheter # Voids 1 ABP, PAP, CO, CI - Last Documented Arterial Blood Pressure 105/49 - Exam -GENERAL: The patient is intubated and sedated HEENT: Pupils are round and equally reacting to light. EOMI. No scleral icterus. No conjunctival pallor. Normocephalic, atraumatic. No pharyngeal erythema. No thyromegaly. CARDIOVASCULAR: S1 and S2 present. No murmurs, rubs, or gallops. -PULMONARY: Chest is clear to auscultation, no wheezing or crackles. Bilateral chest tube placement ABDOMEN: Soft, nontender, nondistended, normoactive bowel sounds. No palpable organomegaly. MUSCULOSKELETAL: No joint swelling or deformity. EXTREMITIES: No cyanosis, clubbing, or pedal edema. NEUROLOGICAL: Gross neurological examination did not reveal any focal deficits. SKIN: No rashes. no petechiae. - Labs CBC & Chem 7: 04/16/20 04:05 04/16/20 04:05 Labs: Abnormal Lab Results - Last 24 Hours (Table) 04/15/20 04/15/20 04/15/20 Range/Units 01:01 05:30 05:30 WBC 16.2 H (3.8-10.6) k/uL RBC 2.96 L (3.80-5.40) m/uL Hgb 6.7 L* (11.4-16.0) gm/dL Hct 23.0 L (34.0-46.0) % MCV 77.7 L (80.0-100.0) fL MCH 22.5 L (25.0-35.0) pg MCHC 29.0 L (31.0-37.0) g/dL RDW 17.4 H (11.5-15.5) % Neutrophils # 15.0 H (1.3-7.7) k/uL Lymphocytes # 0.7 L (1.0-4.8) k/uL ABG pCO2 (35-45) mmHg ABG pO2 (83-108) mmHg ABG HCO3 (21-25) mmol/L ABG Total CO2 (19-24) mmol/L ABG O2 Saturation (94-97) % Carbon Dioxide 46 H* (22-30) mmol/L BUN 32 H (7-17) mg/dL Creatinine 0.38 L (0.52-1.04) mg/dL Glucose 165 H (74-99) mg/dL POC Glucose (mg/dL) 149 H (75-99) mg/dL Calcium 8.2 L (8.4-10.2) mg/dL Total Protein 4.9 L (6.3-8.2) g/dL Albumin 2.4 L (3.5-5.0) g/dL Crossmatch 04/15/20 04/15/20 04/15/20 Range/Units 05:35 09:17 10:07 WBC (3.8-10.6) k/uL RBC (3.80-5.40) m/uL Hgb (11.4-16.0) gm/dL Hct (34.0-46.0) % MCV (80.0-100.0) fL MCH (25.0-35.0) pg MCHC (31.0-37.0) g/dL RDW (11.5-15.5) % Neutrophils # (1.3-7.7) k/uL Lymphocytes # (1.0-4.8) k/uL ABG pCO2 73 H* (35-45) mmHg ABG pO2 114 H (83-108) mmHg ABG HCO3 43 H* (21-25) mmol/L ABG Total CO2 46 H (19-24) mmol/L ABG O2 Saturation 99.5 H (94-97) % Carbon Dioxide (22-30) mmol/L BUN (7-17) mg/dL Creatinine (0.52-1.04) mg/dL Glucose (74-99) mg/dL POC Glucose (mg/dL) 168 H (75-99) mg/dL Calcium (8.4-10.2) mg/dL Total Protein (6.3-8.2) g/dL Albumin (3.5-5.0) g/dL Crossmatch See Detail 04/15/20 Range/Units 11:59 WBC (3.8-10.6) k/uL RBC (3.80-5.40) m/uL Hgb (11.4-16.0) gm/dL Hct (34.0-46.0) % MCV (80.0-100.0) fL MCH (25.0-35.0) pg MCHC (31.0-37.0) g/dL RDW (11.5-15.5) % Neutrophils # (1.3-7.7) k/uL Lymphocytes # (1.0-4.8) k/uL ABG pCO2 (35-45) mmHg ABG pO2 (83-108) mmHg ABG HCO3 (21-25) mmol/L ABG Total CO2 (19-24) mmol/L ABG O2 Saturation (94-97) % Carbon Dioxide (22-30) mmol/L BUN (7-17) mg/dL Creatinine (0.52-1.04) mg/dL Glucose (74-99) mg/dL POC Glucose (mg/dL) 162 H (75-99) mg/dL Calcium (8.4-10.2) mg/dL Total Protein (6.3-8.2) g/dL Albumin (3.5-5.0) g/dL Crossmatch Microbiology - Last 24 Hours (Table) 04/13/20 18:41 Blood Culture - Preliminary Blood No Growth after 24 hours 04/13/20 19:01 Blood Culture - Preliminary Blood No Growth after 24 hours Assessment and Plan Assessment: Bilateral patchy groundglass opacities Secondary to pneumonia. Patient possible ARDS Acute hypoxic respiratory failure secondary to pneumonia currently patient is on mechanical ventilator. Status post tracheostomy and PEG placement on 04/11 Bilateral pneumothorax. Status post bilateral chest tube placement. Acute asthma exacerbation hypernatremia Recent history of IV drug abuse, about 2 weeks prior to admission non-Compliance to therapy. The patient left [facility] in [facility] History of ALL currently in remission. History of Anxiety Nicotine dependence, everyday smoker Plan: This is a 29 years old female who presents with bilateral pneumonia and possible ARDS and bilateral pneumothorax status post chest tube. Continue with antibiotic, continue with steroids. Discontinue IV Lasix and continue with D5W. agement. Follow-up recommendation by pulmonary/critical care team R following the case closely. Labs and medication were reviewed.. Continue same treatment. Continue with symptomatic treatment. Resume home medication. Monitor lytes and vitals. DVT and GI prophylaxis. Further recommendationsas per clinical course of the patient DVT prophylaxis: Subcutaneous Lovenox GI Prophylaxis: Pepcid Prognosis is guarded
--- NOTE | 2020-04-16 20:07 | P.PN ---
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 Patient does have history of IV drug abuse and stopped using approximately 2 weeks ago. Patient was seen at outside hospital in [place] for difficulty in breathing. Patient left AGAINST MEDICAL ADVICE. Patient came to [place] to see her family and has been having worsening symptoms again with cough and dyspnea. Chest x-ray showed diffuse bilateral pleural parenchymal changes.Coronavirus PCR and influenza A and B negative.CT angiogram showed no evidence of pulmonary embolism. Patient is status post bronchoscopy with bronchial lavage on 04/04. Patient eventually need intubation and placed on mechanical ventilation for worsening respiratory failure. Her hospital course was complicated by right pneumothorax and chest tube was placed by surgery team. Today she developed left-sided pneumothorax with another chest tube was placed. Patient remains on broad-spectrum antibiotics with cefepime , she was on IV vancomycin which is a stopped now. Also she is on small doses of IV Lasix 20 mg daily and salmeterol 60 mg. Surgery team were consulted for PEG tube and tracheostomy placement 04/10/2020 Patient remains in the ICU for COPD and pneumonia, his currently on cefepime and IV Solu-Medrol. He is intubated on mechanical ventilation was managed closely by pulmonary/critical care team. As per the pulmonary team patient is doing better today. His hospital course is complicated by bilateral pneumothoraces status post bilateral chest tube. Also patient is undergoing PEG tube and tracheostomy placement Also patient is still tachycardic and tachypneic. Also patient is on Lasix 20 mg twice daily, was once daily yesterday 04/11/2020 Patient remains in the ICU on mechanical ventilation and looks patient is doing better with her oxygenation and depressed ventilation with pulmonary/critical care team followed closely. She still has bilateral chest tubes for bilateral pneumothoraces Patient underwent PEG tube placement and tracheostomy placement by surgery team Her sodium was trending up to 152, D5 W was started and Lasix was stopped. 04/12/2020 Patient remains in the ICU, on mechanical ventilation with pulmonary/critical care team on the case. Patient was tachycardic and tachypneic and she had to be placed back on the buttocks however generally there is normal change in her clinical condition. She still needs bilateral chest tubes for bilateral pneumothoraces. She status post PEG tube and tracheostomy by surgery team She remains on cefepime Solu-Medrol 03/13/2020 Patient remains in the ICU intubated and sedated, she is on mechanical ventilation, she status post PEG tube placement and tracheostomy. No much progress in her condition. Cardiothoracic surgery evaluated the patient for her chest tube management. She still have air leak on the right side. No surgical intervention further recommendation and to continue suction on blood pressure Patient remains on cefepime for her bilateral airway disease. Her hypernatremia is improved with D5W and currently she is on normal saline at 100 mL/h and sodium level is 140. Also she is on Solu-Medrol for her severe asthma. Pulmon elier/critical care team on the case. 04/14/2020 Patient remains in the ICU, not making much progress, she still intubated and on mechanical ventilation. She's been followed by several consult of [facility] pulmonary/critical care team, lead quality technician, cardiothoracic surgery, infectious disease and Gen. surgery She remains on bilateral chest tube She remains on cefepime per ID recommendation She is also on Solu-Medrol 60 mg D5W was started. Sodium is 150. Prognosis remains guarded 04/15/2020 Patient remains in the ICU intubated and sedated, she still with bilateral thoracocentesis. Pulmonary/critical care on the team department to give 1 unit of blood transfusion. And patient continues with antral feeding.Patient continued on D5W for hypernatremia with close monitoring of sodium level. Car diothoracic surgery team were consulted and they recommended to continue with the conservative management for her chest tubes. She really did not make any progress regarding her healing. Prognosis remains very guarded 04/16/2020 When I saw the patient earlier in the morning she was still on mechanical ventilation, because of that patient cannot provide information as per bedside nerve patient remains the same with no much improvement, pulmonary/critical care team are planning to replace her. She was still with IV antibiotics and steroids. She was still has an bilateral thoracocentesis and surgical team on the case with close monitoring. She still getting feeding through the tube. Prognosis is very guarded Objective - Vital Signs Vital signs: Vital Signs Temp 98.0 F 04/16/20 16:00 Pulse 144 H 04/16/20 19:15 Resp 35 H 04/16/20 19:15 BP 139/88 04/16/20 19:15 Pulse Ox 95 04/16/20 19:15 Intake & Output 04/16/20 04/16/20 04/17/20 06:59 18:59 06:59 Intake Total 2423.890 2101.889 48.511 Output Total 867 187 Balance 6400.756 2925.889 48.511 Weight 49.5 kg 49.5 kg Intake: IV 1336 1233 Cefepime 2 gm In Sodium 100 100 Chloride 0.9% 100 ml @ 25 mls/hr IVPB Q12HR [facility] Rx #:[id number] Dextrose 5% in Water 1, 1200 1100 000 ml @ 100 mls/hr IV . Q10H [facility]AN Rx#:[id number] Pressure bag 36 33 Intake, IV Titration 621.890 441.889 48.511 Amount Cisatracurium 200 mg In 169.445 144.108 0 Sodium Chloride 0.9% 180 ml @ 1 MCG/KG/MIN 2.79 mls/hr IV .Q24H [facility] Rx#: [id number] fentaNYL (PF) 2,500 mcg 281.093 128.535 In Sodium Chloride 0.9% 200 ml @ Per Protocol IV .Q0M [facility] Rx#:[id number] propofoL 1,000 mg In 171.352 169.246 48.263 Empty Bag 1 bag @ Titrate IV .Q0M [facility] Rx#: [id number] propofoL 1,000 mg In 0.248 Empty Bag 1 bag @ Titrate IV .Q0M [facility] Rx#: [id number] Tube Feeding 396 337 Other 70 90 Output: Chest Tube Drainage 182 Chest Tube Left 120 Chest Tube Right 0 Chest Tube Right Anterior 62 Chest Urine 685 187 Other: Voiding Method Indwelling Catheter Indwelling Catheter ABP, PAP, CO, CI - Last Documented Arterial Blood Pressure 140/77 - Exam -GENERAL: The patient is intubated and sedated HEENT: Pupils are round and equally reacting to light. EOMI. No scleral icterus. No conjunctival pallor. Normocephalic, atraumatic. No pharyngeal erythema. No thyromegaly. CARDIOVASCULAR: S1 and S2 present. No murmurs, rubs, or gallops. -PULMONARY: Chest is clear to auscultation, no wheezing or crackles. Bilateral chest tube placement ABDOMEN: Soft, nontender, nondistended, normoactive bowel sounds. No palpable organomegaly. MUSCULOSKELETAL: No joint swelling or deformity. EXTREMITIES: No cyanosis, clubbing, or pedal edema. NEUROLOGICAL: Gross neurological examination did not reveal any focal deficits. SKIN: No rashes. no petechiae. - Labs CBC & Chem 7: 04/16/20 04:05 04/16/20 04:05 Labs: Abnormal Lab Results - Last 24 Hours (Table) 04/15/20 04/16/20 04/16/20 Range/Units 23:22 04:05 04:05 WBC 17.6 H (3.8-10.6) k/uL Hgb 9.1 L D (11.4-16.0) gm/dL Hct 29.6 L (34.0-46.0) % MCV 76.7 L (80.0-100.0) fL MCH 23.5 L (25.0-35.0) pg MCHC 30.7 L (31.0-37.0) g/dL RDW 17.3 H (11.5-15.5) % Neutrophils # 16.0 H (1.3-7.7) k/uL Lymphocytes # 0.9 L (1.0-4.8) k/uL ABG pCO2 (35-45) mmHg ABG HCO3 (21-25) mmol/L ABG Total CO2 (19-24) mmol/L ABG O2 Saturation (94-97) % Chloride 95 L (98-107) mmol/L Carbon Dioxide 41 H* (22-30) mmol/L BUN 30 H (7-17) mg/dL Creatinine 0.34 L (0.52-1.04) mg/dL Glucose 141 H (74-99) mg/dL POC Glucose (mg/dL) 173 H (75-99) mg/dL Calcium 8.2 L (8.4-10.2) mg/dL 04/16/20 04/16/20 04/16/20 Range/Units 04:06 04:44 12:12 WBC (3.8-10.6) k/uL Hgb (11.4-16.0) gm/dL Hct (34.0-46.0) % MCV (80.0-100.0) fL MCH (25.0-35.0) pg MCHC (31.0-37.0) g/dL RDW (11.5-15.5) % Neutrophils # (1.3-7.7) k/uL Lymphocytes # (1.0-4.8) k/uL ABG pCO2 73 H* (35-45) mmHg ABG HCO3 41 H* (21-25) mmol/L ABG Total CO2 43 H (19-24) mmol/L ABG O2 Saturation 98.3 H (94-97) % Chloride (98-107) mmol/L Carbon Dioxide (22-30) mmol/L BUN (7-17) mg/dL Creatinine (0.52-1.04) mg/dL Glucose (74-99) mg/dL POC Glucose (mg/dL) 141 H 170 H (75-99) mg/dL Calcium (8.4-10.2) mg/dL Microbiology - Last 24 Hours (Table) 04/16/20 10:45 Wound Culture - Preliminary Neck 04/16/20 10:45 Anaerobic Culture - Preliminary Neck 04/04/20 14:12 Fungal Culture - Preliminary Bronchial Washings - Right 04/13/20 19:01 Blood Culture - Preliminary Blood No Growth after 48 hours 04/13/20 18:41 Blood Culture - Preliminary Blood No Growth after 48 hours Assessment and Plan Assessment: Bilateral patchy groundglass opacities Secondary to pneumonia. Patient possible ARDS Acute hypoxic respiratory failure secondary to pneumonia currently patient is on mechanical ventilator. Status post tracheostomy and PEG placement on 04/11 Bilateral pneumothorax. Status post bilateral chest tube placement. Acute asthma exacerbation hypernatremia Recent history of IV drug abuse, about 2 weeks prior to admission non-Compliance to therapy. The patient left [place] in [facility] History of ALL currently in remission. History of Anxiety Nicotine dependence, everyday smoker Plan: This is a 29 years old female who presents with bilateral pneumonia and possible ARDS and bilateral pneumothorax status post chest tube. Continue with antibiotic, continue with steroids. Discontinue IV Lasix and continue with D5W. agement. Follow-up recommendation by pulmonary/critical care team R following the case closely. Labs and medication were reviewed.. Continue same treatment. Continue with symptomatic treatment. Resume home medication. Monitor lytes and vitals. DVT and GI prophylaxis. Further recommendationsas per clinical course of the patient DVT prophylaxis: Subcutaneous Lovenox GI Prophylaxis: Pepcid Prognosis is guarded
[2020-04-17 00:12] LABS: Glucose,Whole Blood 103 mg/dL (75-99)
[2020-04-17] MEDS: CISATRACURIUM 200 MG in SODIUM CHLORIDE 0.9% 180 ML IV SCH ×2 (03:30→16:45)
[2020-04-17] MEDS: ARTIFICIAL TEARS-HYPROMELLOSE DROPS 15 ML BTL BOTH EYES SCH ×5 (03:30→22:08)
[2020-04-17 04:36] LABS: Anisocytosis Slight; Basophils # (A) 0.1 k/uL (0-0.2); Basophils % (A) 1 %; Eosinophils # (A) 0.1 k/uL (0-0.7); Eosinophils % (A) 0 %; HCT 28.2 % (34.0-46.0); HGB 8.7 gm/dL (11.4-16.0); Hypochromasia Marked; Lymphocytes # (A) 2.1 k/uL (1.0-4.8); Lymphocytes % (A) 11 %; MCH 23.7 pg (25.0-35.0); MCV 76.5 fL (80.0-100.0); Mean Platelet Volume 8.4; Microcytosis Slight; Monocytes # (A) 0.7 k/uL (0-1.0); Monocytes % (A) 4 %; Neutrophils # (A) 15.3 k/uL (1.3-7.7); Neutrophils % (A) 84 %; Platelet Count 166 k/uL (150-450); Poikilocytosis Slight; RBC 3.69 m/uL (3.80-5.40); RDW 17.8 % (11.5-15.5); WBC 18.3 k/uL (3.8-10.6)
[2020-04-17 04:41] LABS: Ionized Calcium 4.7 mg/dL (4.5-5.3)
[2020-04-17 04:50] LABS: ALT 28 U/L (4-34); AST 25 U/L (14-36); African American GFR (CKD) >90 (>60 ml/min/1.73 sqM); Albumin 2.5 g/dL (3.5-5.0); Alkaline Phosphatase 51 U/L (38-126); Amylase 54 U/L (30-110); Blood Urea Nitrogen 22 mg/dL (7-17); C Reactive Protein 10.3 mg/L (<10.0); Calcium 8.3 mg/dL (8.4-10.2); Chloride 87 mmol/L (98-107); Creatine Kinase 31 U/L (30-135); Glucose 101 mg/dL (74-99); Lipase 72 U/L (23-300); Magnesium 1.6 mg/dL (1.6-2.3); Non-African American GFR(CKD) >90 (>60 ml/min/1.73 sqM); Potassium 3.8 mmol/L (3.5-5.1); Sodium 129 mmol/L (137-145); Total Bilirubin 0.3 mg/dL (0.2-1.3)
[2020-04-17 04:56] LABS: Anion Gap -3 mmol/L
[2020-04-17 04:57] LABS: Creatine Kinase MB 2.9 ng/mL (0.0-2.4); Troponin I <0.012 ng/mL (0.000-0.034)
[2020-04-17 05:15] LABS: ABG Base Excess 17.5 mmol/L; ABG PH 7.35 (7.35-7.45); ABG PO2 103 mmHg (83-108); ABG TCO2 46 mmol/L (19-24); Allen Test Performed? Yes
[2020-04-17 05:18] LABS: ABG HCO3 43 mmol/L (21-25); ABG PCO2 78 mmHg (35-45)
[2020-04-17 05:33] LABS: Carbon Dioxide 45 mmol/L (22-30)
[2020-04-17 05:41] LABS: Appearance,Urine Cloudy (Clear); Bacteria,Urine Rare /hpf; Bilirubin,Urine Negative (Negative); Blood,Urine Negative (Negative); Budding Yeast,Urine Many /hpf; Color,Urine Yellow; Glucose,Urine (UA) Negative (Negative); Ketones,Urine Negative (Negative); Leukocyte Esterase,Urine Moderate (Negative); Mucus,Urine Rare /hpf; Nitrite,Urine Negative (Negative); Protein,Urine Trace (Negative); RBC,Urine 8 /hpf (0-5); Specific Gravity,Urine 1.017 (1.001-1.035); Squamous Epithelial Cell,Urine <1 /hpf (0-4); Urobilinogen,Urine <2.0 mg/dL (<2.0); WBC,Urine 25 /hpf (0-5)
[2020-04-17] MEDS: FERROUS SULFATE 325 MG TAB PO SCH (07:05)
--- NOTE | 2020-04-17 07:27 | XR ---
EXAMINATION TYPE: XR chest 1V DATE OF EXAM: 04/17/2020 COMPARISON: 04/16/2020 HISTORY: Central line placement TECHNIQUE: Single frontal view of the chest is obtained. FINDINGS: Left subclavian CVC tip is in the right atrium. Bilateral chest tubes are redemonstrated. Biapical pleural thickening. Previously noted pneumothorax in the left appears to be filled with atte nuation likely related to pleural fluid. Diffuse pleural-parenchymal changes persist. Heart upper kaufman its of normal in size. Diffuse interstitial and patchy airspace opacities persist without significant change. Positioning of the patient's tracheostomy cannula is unclear study. IMPRESSION: 1. Postoperative changes. Tracheostomy tube overlies the mid tracheal region. 2. Diffuse pleural-parenchymal changes including infiltrates and pleural effusion. Correlate for pneu monia or interstitial edema. Suspect there is a left-sided pneumothorax.
[2020-04-17] MEDS ORDERED: Potassium Replacement Protocol 1 EACH MISC MISCELLANE PRN (07:28)
[2020-04-17] MEDS ORDERED: POTASSIUM BICARBONATE/CIT AC 20 MEQ TABLET.EFF NG-TUBE SCH (08:00)
[2020-04-17 08:38] LABS: ABG PCO2 89 mmHg (35-45)
[2020-04-17 08:41] LABS: ABG HCO3 40 mmol/L (21-25); ABG PCO2 85 mmHg (35-45)
[2020-04-17 08:44] LABS: ABG HCO3 41 mmol/L (21-25); ABG PCO2 73 mmHg (35-45)
[2020-04-17] MEDS: fentaNYL (PF) 2,500 MCG in SODIUM CHLORIDE 0.9% 200 ML IV SCH ×2 (10:01→22:12)
[2020-04-17] MEDS: CEFEPIME 2 GM in SODIUM CHLORIDE 0.9% 100 ML IVPB SCH ×2 (10:05→22:09)
--- NOTE | 2020-04-17 10:46 | PN ---
PROGRESS NOTE PULMONARY/CRITICAL CARE PROGRESS NOTE: DATE OF SERVICE: 04/17/2020 Critical care time 31 minutes. This is a patient who was admitted way back on April 02, 2020. She was admitted with a diagnosis of pneumonia and asthma exacerbation. She, unfortunately, was intubated on April 05 for acute respiratory failure. Because of failure to wean, she had a tracheostomy and PEG tube placement on April 11, 2020. She also developed bilateral pneumothoraces. Currently, she is still on the ventilator. She is on the volume assist-control mode rate of 32, tidal volume 250, FiO2 of 35%, PEEP of 5, blood gases show a PO2 of 103, pCO2 of 78, and pH of 7.35, D5W is running at 100 mL an hour, Diprivan at 75 mcg/kg/per minute, fentanyl at 4 mcg/kg/per hour and Nimbex at 5 mcg/kg/per minute. In addition, she is on Vital high-protein at 33, which is goal. Currently, the patient is being evaluated by [facility]. Apparently this was her wishes and her mother's wishes. Current vital signs are reviewed, temperature is 98, heart rate 118, respiratory rate 32, blood pressure 116/64 mean 81, saturations 97%. Appears in no acute distress. Currently heavily sedated and paralyzed. HEENT: Examination is grossly unremarkable. There is a midline tracheostomy tube. NECK: Supple, otherwise. CARDIOVASCULAR: Examination reveals tachycardia. Heart rate about 110-115. She is in sinus rhythm. LUNGS: Reveal diffuse coarse rhonchi bilaterally. Breath sounds equal. ABDOMEN: Soft, bowel sounds are heard. EXTREMITIES: Intact. No cyanosis, clubbing, or significant edema. SKIN: Without rash. NEUROLOGIC: Examination cannot be adequately assessed. LAB DATA: Reviewed. White count 18.3, hemoglobin 8.7, hematocrit 28.2, platelet count 166,000, sodium 129, potassium 3.8, chloride 87, CO2 is 45, anion gap is -3, BUN and creatinine were 22 and 0.47. Urine is cloudy. There is moderate leukocyte esterase. Eight RBCs, 25 WBCs and rare bacteria. Microbiology thus far is negative although urine is suspicious. The femoral catheter was cultured. Those are pending. Chest x-ray shows the new central line from yesterday. She has got bilateral diffuse patchy infiltrates. There is a persistent apical pneumothorax on the left. Chest tubes are noted. CURRENT MEDICATIONS: Reviewed. She is on Artificial Tears, atropine eye drops. Maxipime, Nimbex, fentanyl, iron, morphine, Narcan, Zofran, potassium and Diprivan. ASSESSMENT: 1. Acute hypoxemic respiratory failure, requiring intubation and mechanical ventilation on April 05 with failure to wean, subsequent tracheostomy and PEG tube placement on April 11, 2020. 2. Severe acute asthma exacerbation leading to respiratory failure. 3. Bilateral pneumothoraces, status post two right chest tubes and one left chest tube, secondary to barotrauma and positive-pressure ventilation. 4. History of IV drug abuse. 5. History of seizure disorder. 6. History of generalized anxiety disorder. 7. Remote history of acute lymphocytic leukemia, currently in remission. 8. Severe malnutrition. 9. Chronic hypercapnic respiratory failure. 10.General medical debility. PLAN: Currently, the patient is on appropriate medications. She is being considered for [facility]. Will continue to follow. Prognosis is poor. The patient's medications have been properly adjusted. A left subclavian triple-lumen catheter was placed yesterday. The right groin triple-lumen catheter was removed and tip cultured. Will continue to follow. Critical care time 31 minutes. MMODL / IJN: [id number] /
[2020-04-17 12:52] LABS: Glucose,Whole Blood 93 mg/dL (75-99)
[2020-04-17 13:00] LABS: Anisocytosis Slight; Basophils # (A) 0.1 k/uL (0-0.2); Basophils % (A) 0 %; Eosinophils # (A) 0.1 k/uL (0-0.7); Eosinophils % (A) 1 %; HCT 30.3 % (34.0-46.0); HGB 9.3 gm/dL (11.4-16.0); Hypochromasia Marked; Lymphocytes % (A) 12 %; MCH 23.5 pg (25.0-35.0); MCHC 30.7 g/dL (31.0-37.0); MCV 76.5 fL (80.0-100.0); Mean Platelet Volume 8.8; Microcytosis Slight; Monocytes # (A) 0.6 k/uL (0-1.0); Monocytes % (A) 3 %; Neutrophils # (A) 14.1 k/uL (1.3-7.7); Neutrophils % (A) 84 %; Platelet Count 163 k/uL (150-450); Poikilocytosis Slight; RBC 3.96 m/uL (3.80-5.40); WBC 16.9 k/uL (3.8-10.6)
[2020-04-17 13:22] LABS: INR 0.9 (<1.2); Prothrombin Time 9.6 sec (9.0-12.0)
[2020-04-17 13:25] LABS: Partial Thromboplastin Time 20.7 sec (22.0-30.0)
[2020-04-17 13:27] LABS: ALT 35 U/L (4-34); AST 36 U/L (14-36); African American GFR (CKD) >90 (>60 ml/min/1.73 sqM); Albumin 2.5 g/dL (3.5-5.0); Alkaline Phosphatase 53 U/L (38-126); Amylase 57 U/L (30-110); Blood Urea Nitrogen 19 mg/dL (7-17); Calcium 8.3 mg/dL (8.4-10.2); Chloride 89 mmol/L (98-107); Glucose 94 mg/dL (74-99); Lipase 90 U/L (23-300); Magnesium 1.7 mg/dL (1.6-2.3); Non-African American GFR(CKD) >90 (>60 ml/min/1.73 sqM); Phosphorus 3.2 mg/dL (2.5-4.5); Potassium 4.2 mmol/L (3.5-5.1); Sodium 131 mmol/L (137-145); Total Bilirubin 0.4 mg/dL (0.2-1.3)
[2020-04-17 13:33] LABS: Anion Gap -6 mmol/L; Ionized Calcium 4.7 mg/dL (4.5-5.3)
[2020-04-17 13:39] LABS: Carbon Dioxide 48 mmol/L (22-30)
--- NOTE | 2020-04-17 14:37 | P.PN ---
Subjective Progress Note Date: 04/17/20 CHIEF COMPLAINT: Hypoxia HISTORY OF PRESENT ILLNESS: The patient is a 29-year-old female pre-existing his tory of methamphetamine abuse including IV drug abuse who was hospitalized at outside institution in [place] for pneumonia. Patient left AGAINST MEDICAL ADVICE and presented for her current hospitalization for hypoxia including difficulty with breathing. Diagnostic studies confirmed pneumonia. Patient remains in the ICU on mechanical ventilation, sedation and paralyzed. She still has chest tubes in place. She is status post tracheostomy and PEG tube placement on 04/11/2020. Afebrile. Covid negative WBC 18.3 Patient is being evaluated for [facility] CODE STATUS changed to DO NOT RESUSCITATE PHYSICAL EXAM: VITAL SIGNS: Reviewed. GENERAL: Well-developed in no acute distress. HEENT: No sclera icterus. Extraocular movements grossly intact. Moist buccal mucosa. Head is atraumatic, normocephalic. Tracheostomy site is clean ABDOMEN: Soft. Nondistended. Nontender. PEG tube site clean dry and intact NEUROLOGIC: Depressed due to sedation ASSESSMENT: 1. Acute hypoxic respiratory failure status post tracheostomy 2. Moderate protein calorie malnutrition status post PEG tube placement 3. Bilateral pneumothoraces 4. IV drug abuse methamphetamine abuse PLAN: -Patient being evaluated for [facility] Physician Data Warehousing Architect note has been reviewed by physician. Signing provider agrees with the documented findings, assessment, and plan of care. Objective - Vital Signs Vital signs: Vital Signs Temp 98.2 F 04/17/20 12:00 Pulse 118 H 04/17/20 12:30 Resp 32 H 04/17/20 12:30 BP 117/81 04/17/20 12:30 Pulse Ox 98 04/17/20 12:30 Intake & Output 04/16/20 04/17/20 04/17/20 18:59 06:59 18:59 Intake Total 2351.889 1047.667 4816.790 Output Total 187 715 425 Balance 2164.889 870.151 696.790 Weight 49.5 kg Intake: IV 1233 1133 771 Cefepime 2 gm In Sodium 100 100 Chloride 0.9% 100 ml @ 25 mls/hr IVPB Q12HR [facility] Rx #:[id number] Dextrose 5% in Water 1, 1100 1100 650 000 ml @ 100 mls/hr IV . Q10H [facility] Rx#:[id number] Pressure bag 33 33 21 Intake, IV Titration 691.889 452.151 350.790 Amount Cisatracurium 200 mg In 144.108 0 Sodium Chloride 0.9% 180 ml @ 1 MCG/KG/MIN 2.79 mls/hr IV .Q24H [facility] Rx#: [id number] Cisatracurium 200 mg In 121.572 Sodium Chloride 0.9% 180 ml @ 5 MCG/KG/MIN 14.85 mls/hr IV .[id number] [facility] Rx #:[id number] fentaNYL (PF) 2,500 mcg 378.535 69.713 172.59 In Sodium Chloride 0.9% 200 ml @ Per Protocol IV .Q0M [facility] Rx#:[id number] propofoL 1,000 mg In 169.246 48.263 Empty Bag 1 bag @ Titrate IV .Q0M [facility] Rx#: [id number] propofoL 1,000 mg In 212.603 178.200 Empty Bag 1 bag @ Titrate IV .Q0M [facility] Rx#: [id number] Tube Feeding 337 0 Other 90 Output: Chest Tube Drainage 210 Chest Tube Left 90 Chest Tube Right 10 Chest Tube Right Anterior 110 Chest Urine 187 505 425 Other: Voiding Method Indwelling Catheter Indwelling Catheter Indwelling Catheter ABP, PAP, CO, CI - Last Documented Arterial Blood Pressure 124/71 - Labs CBC & Chem 7: 04/17/20 12:32 04/17/20 12:32 Labs: Abnormal Lab Results - Last 24 Hours (Table) 04/13/20 04/14/20 04/16/20 Range/Units 06:11 08:24 04:44 WBC (3.8-10.6) k/uL RBC (3.80-5.40) m/uL Hgb (11.4-16.0) gm/dL Hct (34.0-46.0) % MCV (80.0-100.0) fL MCH (25.0-35.0) pg MCHC (31.0-37.0) g/dL RDW (11.5-15.5) % Neutrophils # (1.3-7.7) k/uL APTT (22.0-30.0) sec ABG pCO2 89 H* 85 H* 73 H* (35-45) mmHg ABG HCO3 40 H* 41 H* (21-25) mmol/L ABG Total CO2 (19-24) mmol/L ABG O2 Saturation (94-97) % Sodium (137-145) mmol/L Chloride (98-107) mmol/L Carbon Dioxide (22-30) mmol/L BUN (7-17) mg/dL Creatinine (0.52-1.04) mg/dL Glucose (74-99) mg/dL POC Glucose (mg/dL) (75-99) mg/dL Calcium (8.4-10.2) mg/dL ALT (4-34) U/L CK-MB (CK-2) (0.0-2.4) ng/mL C-Reactive Protein (<10.0) mg/L Total Protein (6.3-8.2) g/dL Albumin (3.5-5.0) g/dL Urine Appearance (Clear) Urine Protein (Negative) Ur Leukocyte Esterase (Negative) Urine RBC (0-5) /hpf Urine WBC (0-5) /hpf Urine Bacteria (None) /hpf Urine Mucus (None) /hpf Urine Yeast (Budding) (None) /hpf 04/17/20 04/17/20 04/17/20 Range/Units 00:10 04:15 04:15 WBC 18.3 H (3.8-10.6) k/uL RBC 3.69 L (3.80-5.40) m/uL Hgb 8.7 L (11.4-16.0) gm/dL Hct 28.2 L (34.0-46.0) % MCV 76.5 L (80.0-100.0) fL MCH 23.7 L (25.0-35.0) pg MCHC (31.0-37.0) g/dL RDW 17.8 H (11.5-15.5) % Neutrophils # 15.3 H (1.3-7.7) k/uL APTT (22.0-30.0) sec ABG pCO2 (35-45) mmHg ABG HCO3 (21-25) mmol/L ABG Total CO2 (19-24) mmol/L ABG O2 Saturation (94-97) % Sodium 129 L (137-145) mmol/L Chloride 87 L (98-107) mmol/L Carbon Dioxide 45 H* (22-30) mmol/L BUN 22 H (7-17) mg/dL Creatinine 0.47 L (0.52-1.04) mg/dL Glucose 101 H (74-99) mg/dL POC Glucose (mg/dL) 103 H (75-99) mg/dL Calcium 8.3 L (8.4-10.2) mg/dL ALT (4-34) U/L CK-MB (CK-2) (0.0-2.4) ng/mL C-Reactive Protein 10.3 H (<10.0) mg/L Total Protein 5.0 L (6.3-8.2) g/dL Albumin 2.5 L (3.5-5.0) g/dL Urine Appearance (Clear) Urine Protein (Negative) Ur Leukocyte Esterase (Negative) Urine RBC (0-5) /hpf Urine WBC (0-5) /hpf Urine Bacteria (None) /hpf Urine Mucus (None) /hpf Urine Yeast (Budding) (None) /hpf 04/17/20 04/17/20 04/17/20 Range/Units 04:15 05:00 05:08 WBC (3.8-10.6) k/uL RBC (3.80-5.40) m/uL Hgb (11.4-16.0) gm/dL Hct (34.0-46.0) % MCV (80.0-100.0) fL MCH (25.0-35.0) pg MCHC (31.0-37.0) g/dL RDW (11.5-15.5) % Neutrophils # (1.3-7.7) k/uL APTT (22.0-30.0) sec ABG pCO2 78 H* (35-45) mmHg ABG HCO3 43 H* (21-25) mmol/L ABG Total CO2 46 H (19-24) mmol/L ABG O2 Saturation 99.0 H (94-97) % Sodium (137-145) mmol/L Chloride (98-107) mmol/L Carbon Dioxide (22-30) mmol/L BUN (7-17) mg/dL Creatinine (0.52-1.04) mg/dL Glucose (74-99) mg/dL POC Glucose (mg/dL) (75-99) mg/dL Calcium (8.4-10.2) mg/dL ALT (4-34) U/L CK-MB (CK-2) 2.9 H (0.0-2.4) ng/mL C-Reactive Protein (<10.0) mg/L Total Protein (6.3-8.2) g/dL Albumin (3.5-5.0) g/dL Urine Appearance Cloudy H (Clear) Urine Protein Trace H (Negative) Ur Leukocyte Esterase Moderate H (Negative) Urine RBC 8 H (0-5) /hpf Urine WBC 25 H (0-5) /hpf Urine Bacteria Rare H (None) /hpf Urine Mucus Rare H (None) /hpf Urine Yeast (Budding) Many H (None) /hpf 04/17/20 04/17/20 04/17/20 Range/Units 12:32 12:32 12:32 WBC 16.9 H (3.8-10.6) k/uL RBC (3.80-5.40) m/uL Hgb 9.3 L (11.4-16.0) gm/dL Hct 30.3 L (34.0-46.0) % MCV 76.5 L (80.0-100.0) fL MCH 23.5 L (25.0-35.0) pg MCHC 30.7 L (31.0-37.0) g/dL RDW 18.0 H (11.5-15.5) % Neutrophils # 14.1 H (1.3-7.7) k/uL APTT 20.7 L (22.0-30.0) sec ABG pCO2 (35-45) mmHg ABG HCO3 (21-25) mmol/L ABG Total CO2 (19-24) mmol/L ABG O2 Saturation (94-97) % Sodium 131 L (137-145) mmol/L Chloride 89 L (98-107) mmol/L Carbon Dioxide 48 H* (22-30) mmol/L BUN 19 H (7-17) mg/dL Creatinine 0.39 L (0.52-1.04) mg/dL Glucose (74-99) mg/dL POC Glucose (mg/dL) (75-99) mg/dL Calcium 8.3 L (8.4-10.2) mg/dL ALT 35 H (4-34) U/L CK-MB (CK-2) (0.0-2.4) ng/mL C-Reactive Protein (<10.0) mg/L Total Protein 5.0 L (6.3-8.2) g/dL Albumin 2.5 L (3.5-5.0) g/dL Urine Appearance (Clear) Urine Protein (Negative) Ur Leukocyte Esterase (Negative) Urine RBC (0-5) /hpf Urine WBC (0-5) /hpf Urine Bacteria (None) /hpf Urine Mucus (None) /hpf Urine Yeast (Budding) (None) /hpf Microbiology - Last 24 Hours (Table) 04/16/20 11:58 Catheter Tip Culture - Preliminary Catheter Tip 04/04/20 14:12 Acid Fast Bacilli Smear - Final Bronchial Washings - Right Acid Fast Bacilli Culture - Preliminary 04/16/20 10:45 Gram Stain - Preliminary Neck Wound Culture - Preliminary 04/13/20 19:01 Blood Culture - Preliminary Blood No Growth after 72 hours 04/13/20 18:41 Blood Culture - Preliminary Blood No Growth after 72 hours 04/16/20 10:45 Anaerobic Culture - Preliminary Neck 04/04/20 14:12 Fungal Culture - Preliminary Bronchial Washings - Right
--- NOTE | 2020-04-17 15:53 | CT ---
EXAMINATION TYPE: CT ChestAbdPelvis wo con DATE OF EXAM: 04/17/2020 COMPARISON: CT chest April 07, 2020 HISTORY: [facility] follow up. Pain. Organ donation. CT DLP: 569.5 mGycm. Automated Exposure Control for Dose Reduction was Utilized. TECHNIQUE: CT scan of the thorax, abdomen and pelvis is performed without IV contrast. FINDINGS: Evaluation suboptimal due to artifact from adjacent upper extremities. LUNGS: Persistent right basilar chest tube with tiny right sided residual pneumothorax on current avi dy improved from prior. Left-sided chest tube now in place with tiny residual left-sided pneumothorax anteriorly. Stable small left pleural fluid collection. Interval progression of bilateral groundglas s opacities and consolidation into more prominent peripheral organizing consolidations. Developing fi brotic change in the apices noted. MEDIASTINUM: Tracheostomy tube now present. Enlarged right and left pulmonary arteries consistent wit h underlying pulmonary hypertension. No new cardiomegaly or pericardial effusion. OTHER: New Left subclavian central venous catheter terminates in right atrium. LIVER/GB: Heterogeneity of liver. Mildly distended gallbladder. PANCREAS: No significant abnormality is seen. SPLEEN: No significant abnormality is seen. ADRENALS: No significant abnormality is seen. KIDNEYS: Moderate to severe bilateral hydronephrosis with tiny punctate calculi suspected bilaterally . Moderate to severe distended bladder. BOWEL: No significant abnormality is seen. GENITAL ORGANS: No gross abnormality seen. LYMPH NODES: No greater than 1cm abdominal or pelvic lymph nodes are appreciated. OSSEOUS STRUCTURES: No significant abnormality is seen. OTHER: Small small amount of abdominal and pelvic ascites. Small to moderate amount of diffuse soft t issue anasarca. IMPRESSION: Severe bilateral hydronephrosis presumed due to severe distended bladder. Coated type in fection findings in the lungs. Bilateral small pneumothoraces despite chest tube placement. Study per formed for organ donation planning.
--- NOTE | 2020-04-17 17:19 | CDI ---
Documentation Clarification Form Date: 04/17/2020 04:54:46 PM From: Reny Desai RN CCDS Admit Date: 04/02/2020 05:42:00 PM Patient Name: Lu Hoover Visit Number: [id number] Discharge Date: ATTENTION: The Clinical Documentation Specialists (CDI) and [facility] Coding Staff appreciate your assistance in clarifying documentation. Please respond to the clarification below the line at the bottom and electronically sign. The CDI & [facility] Coding staff will review the response and follow-up if needed. Please note: Queries are made part of the Legal Health Record. If you have any questions, please contact the author of this message via ITS. Dr. Emerson E Sheet Conflicting documentation has been found in the medical record: Moderate Protein Calorie Malnutrition in surgical progress notes 04/16 & 04/17 Severe Protein Calorie Malnutrition is documented in the Critical Care progress notes 04/09 through 04/17 History/Risk Factors: 29-year-old female presents to ED [facility] in [place] for difficulty in breathing came to [place] to see family with worsening symptoms. Medical History CLL in remission, Seizure disorder, asthma, COPD and history of IV drug use. Clinical Indicators: 04/15 through 04/18 Critical Care Progress Note: A 29-year-old female, extremely frail and emaciated, malnourished on mechanical ventilation. BMI 21.3 kg/m 04/05 Dietary consult: [place]p Body Weight Estimated protein needs per day 54-91 grams/day; Estimated Fluid Needs per day 1334mls per day; Nutritional Diagnosis: Inadequate energy intake, related to intubation, sedation and NPO 04/14 Peg tube insertion. Treatment: Nutritional consult see above Enteral Nutrition Tube feeding. Monitor blood glucose In your opinion, what is the most clinically appropriate diagnosis for this patient? Severe Protein Calorie Malnutrition Moderate Protein Calorie Malnutrition Other explanation of clinical findings Unable to determine (no explanation for clinical findings) (Last Revision: August 2017) i dont think pt has malnutrition MTDD
[2020-04-17 18:13] LABS: ABG Base Excess 20.4 mmol/L; ABG Oxygen Saturation 99.3 % (94-97); ABG PCO2 70 mmHg (35-45); ABG PH 7.42 (7.35-7.45); ABG PO2 111 mmHg (83-108); ABG TCO2 47 mmol/L (19-24); Allen Test Performed? Yes
[2020-04-17 18:16] LABS: ABG HCO3 45 mmol/L (21-25)
[2020-04-17 18:45] LABS: Glucose,Whole Blood 84 mg/dL (75-99)
--- NOTE | 2020-04-17 19:56 | P.PN ---
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 Patient does have history of IV drug abuse and stopped using approximately 2 weeks ago. Patient was seen at outside hospital in [place] for difficulty in breathing. Patient left AGAINST MEDICAL ADVICE. Patient came to [place] to see her family and has been having worsening symptoms again with cough and dyspnea. Chest x-ray showed diffuse bilateral pleural parenchymal changes.Coronavirus PCR and influenza A and B negative.CT angiogram showed no evidence of pulmonary embolism. Patient is status post bronchoscopy with bronchial lavage on 04/04. Patient eventually need intubation and placed on mechanical ventilation for worsening respiratory failure. Her hospital course was complicated by right pneumothorax and chest tube was placed by surgery team. Today she developed left-sided pneumothorax with another chest tube was placed. Patient remains on broad-spectrum antibiotics with cefepime , she was on IV vancomycin which is a stopped now. Also she is on small doses of IV Lasix 20 mg daily and salmeterol 60 mg. Surgery team were consulted for PEG tube and tracheostomy placement 04/10/2020 Patient remains in the ICU for COPD and pneumonia, his currently on cefepime and IV Solu-Medrol. He is intubated on mechanical ventilation was managed closely by pulmonary/critical care team. As per the pulmonary team patient is doing better today. His hospital course is complicated by bilateral pneumothoraces status post bilateral chest tube. Also patient is undergoing PEG tube and tracheostomy placement Also patient is still tachycardic and tachypneic. Also patient is on Lasix 20 mg twice daily, was once daily yesterday 04/11/2020 Patient remains in the ICU on mechanical ventilation and looks patient is doing better with her oxygenation and depressed ventilation with pulmonary/critical care team followed closely. She still has bilateral chest tubes for bilateral pneumothoraces Patient underwent PEG tube placement and tracheostomy placement by surgery team Her sodium was trending up to 152, D5 W was started and Lasix was stopped. 04/12/2020 Patient remains in the ICU, on mechanical ventilation with pulmonary/critical care team on the case. Patient was tachycardic and tachypneic and she had to be placed back on the buttocks however generally there is normal change in her clinical condition. She still needs bilateral chest tubes for bilateral pneumothoraces. She status post PEG tube and tracheostomy by surgery team She remains on cefepime Solu-Medrol 03/13/2020 Patient remains in the ICU intubated and sedated, she is on mechanical ventilation, she status post PEG tube placement and tracheostomy. No much progress in her condition. Cardiothoracic surgery evaluated the patient for her chest tube management. She still have air leak on the right side. No surgical intervention further recommendation and to continue suction on blood pressure Patient remains on cefepime for her bilateral airway disease. Her hypernatremia is improved with D5W and currently she is on normal saline at 100 mL/h and sodium level is 140. Also she is on Solu-Medrol for her severe asthma. Pulmon elier/critical care team on the case. 04/14/2020 Patient remains in the ICU, not making much progress, she still intubated and on mechanical ventilation. She's been followed by several consult of [facility] pulmonary/critical care team, estate and trust tax principal, cardiothoracic surgery, infectious disease and Gen. surgery She remains on bilateral chest tube She remains on cefepime per ID recommendation She is also on Solu-Medrol 60 mg D5W was started. Sodium is 150. Prognosis remains guarded 04/15/2020 Patient remains in the ICU intubated and sedated, she still with bilateral thoracocentesis. Pulmonary/critical care on the team department to give 1 unit of blood transfusion. And patient continues with antral feeding.Patient continued on D5W for hypernatremia with close monitoring of sodium level. Car diothoracic surgery team were consulted and they recommended to continue with the conservative management for her chest tubes. She really did not make any progress regarding her healing. Prognosis remains very guarded 04/16/2020 When I saw the patient earlier in the morning she was still on mechanical ventilation, because of that patient cannot provide information as per bedside nerve patient remains the same with no much improvement, pulmonary/critical care team are planning to replace her. She was still with IV antibiotics and steroids. She was still has an bilateral thoracocentesis and surgical team on the case with close monitoring. She still getting feeding through the tube. Prognosis is very guarded 04/17/2020 Family decided for the patient to go for organ donation (DCD) donation post cardiac . I talked to the staff for donation organ and they recommended that the patient to continue with the same treatment of antibiotic, mechanical ventilation and all other measures to keep her organ Vital, DCD staff they wanted to do a CT of the abdomen , pelvis and chest. Also echocardiogram to see if the patient is eligible for donation back in and they going to investigate this possibility and make decision about it Medical team will keep following the patient and provide the medical care while the DCD decided about the organ donation. They have concerned that patient may had leukemia and they asked me to get some information for them. I discussed the case with Dr. Simmons reviews the previous records and their office, it looks like the patient was diagnosed with ALL in 2006 however she got treatment and she was admission by 2014 wound was checked in the office again. So it has been [address] Simmons thinks the patient does not have an active disease currently especially in view of her CBC results. Review of systems N/a Active Medications Generic Name Dose Route Start Last Admin Trade Name Freq PRN Reason Stop Dose Admin Artificial Tears 1 drops 04/12/20 04:00 04/17/20 16:45 Artificial Tears-Hypromellose Drops 15 Ml Btl BOTH EYES 1 drops Q4H CRISTHIAN Administration Atropine Sulfate 2 drops 04/16/20 17:20 Atropine Ophth Soln 1% 5ml Btl SUBLINGUAL Q4HR PRN Excess Secretions Fentanyl Citrate 2,500 mcg/ 250 mls @ 0 mls/hr 04/09/20 15:00 04/17/20 10:01 Sodium Chloride IV 4 mcg/kg/hr .Q0M CRISTHIAN 19.8 mls/hr Administration Protocol Per Protocol Propofol 1,000 mg/ IV Solution 100 mls @ 0 mls/hr 04/16/20 19:15 04/17/20 17:21 IV 50 mcg/kg/min .Q0M CRISTHIAN 14.85 mls/hr Administration Protocol Titrate Cisatracurium Besylate 200 mg/ 200 mls @ 14.85 mls/hr 04/16/20 19:15 04/17/20 16:45 Sodium Chloride IV 5 mcg/kg/min .[id number] CRISTHIAN 14.85 mls/hr Administration Protocol 5 MCG/KG/MIN Cefepime HCl 2 gm/ Sodium 100 mls @ 25 mls/hr 04/17/20 09:00 04/17/20 10:05 Chloride IVPB 25 mls/hr Q12HR CRISTHIAN Administration Miscellaneous Information 1 each 04/17/20 07:28 Potassium Replacement Protocol 1 Each Misc MISCELLANE DAILY PRN Per Protocol Protocol Morphine Sulfate 2 mg 04/16/20 17:20 Morphine Sulfate 2 Mg/Ml Syringe IV Q15M PRN Breakthrough Pain Morphine Sulfate 4 mg 04/16/20 17:20 04/16/20 18:50 Morphine Sulfate 4 Mg/Ml Syringe IV 4 mg Q15M PRN Administration Breakthrough Pain Naloxone HCl 0.2 mg 04/16/20 19:11 Naloxone 0.4 Mg/Ml 1 Ml Vial IV Q2M PRN Opioid Reversal Ondansetron HCl 4 mg 04/03/20 15:08 04/03/20 16:14 Ondansetron 4 Mg/2 Ml Vial IVP 4 mg Q6HR PRN Administration Nausea And Vomiting Objective - Vital Signs Vital signs: Vital Signs Temp 98.2 F 04/17/20 12:00 Pulse 117 H 04/17/20 18:00 Resp 32 H 04/17/20 18:00 BP 103/74 04/17/20 18:00 Pulse Ox 100 04/17/20 18:00 Intake & Output 04/16/20 04/17/20 04/17/20 18:59 06:59 18:59 Intake Total 2351.889 8712.037 9337.039 Output Total 444 592 0646 Balance 2164.889 870.151 -1045.961 Weight 49.5 kg Intake: IV 1233 1133 1286 Cefepime 2 gm In Sodium 100 100 Chloride 0.9% 100 ml @ 25 mls/hr IVPB Q12HR CRISTHIAN Rx #:[id number] Dextrose 5% in Water 1, 1100 1100 1150 000 ml @ 100 mls/hr IV . Q10H CRISTHIAN Rx#:[id number] Pressure bag 33 33 36 Intake, IV Titration 691.889 452.151 643.039 Amount Cisatracurium 200 mg In 144.108 0 Sodium Chloride 0.9% 180 ml @ 1 MCG/KG/MIN 2.79 mls/hr IV .Q24H CRISTHIAN Rx#: [id number] Cisatracurium 200 mg In 121.572 196.763 Sodium Chloride 0.9% 180 ml @ 5 MCG/KG/MIN 14.85 mls/hr IV .[id number] CRISTHIAN Rx #:[id number] fentaNYL (PF) 2,500 mcg 378.535 69.713 172.59 In Sodium Chloride 0.9% 200 ml @ Per Protocol IV .Q0M CRISTHIAN Rx#:[id number] propofoL 1,000 mg In 169.246 48.263 Empty Bag 1 bag @ Titrate IV .Q0M CRISTHIAN Rx#: [id number] propofoL 1,000 mg In 212.603 273.686 Empty Bag 1 bag @ Titrate IV .Q0M CRISTHIAN Rx#: [id number] Tube Feeding 337 0 Other 90 Output: Chest Tube Drainage 210 Chest Tube Left 90 Chest Tube Right 10 Chest Tube Right Anterior 110 Chest Urine 236 921 8758 Other: Voiding Method Indwelling Catheter Indwelling Catheter Indwelling Catheter ABP, PAP, CO, CI - Last Documented Arterial Blood Pressure 105/59 - Exam -GENERAL: The patient is intubated and sedated HEENT: Pupils are round and equally reacting to light. EOMI. No scleral icterus. No conjunctival pallor. Normocephalic, atraumatic. No pharyngeal erythema. No thyromegaly. CARDIOVASCULAR: S1 and S2 present. No murmurs, rubs, or gallops. -PULMONARY: Chest is clear to auscultation, no wheezing or crackles. Bilateral chest tube placement ABDOMEN: Soft, nontender, nondistended, normoactive bowel sounds. No palpable organomegaly. MUSCULOSKELETAL: No joint swelling or deformity. EXTREMITIES: No cyanosis, clubbing, or pedal edema. NEUROLOGICAL: Gross neurological examination did not reveal any focal deficits. SKIN: No rashes. no petechiae. - Labs CBC & Chem 7: 04/17/20 12:32 04/17/20 12:32 Labs: Abnormal Lab Results - Last 24 Hours (Table) 04/13/20 04/14/20 04/16/20 Range/Units 06:11 08:24 04:44 WBC (3.8-10.6) k/uL RBC (3.80-5.40) m/uL Hgb (11.4-16.0) gm/dL Hct (34.0-46.0) % MCV (80.0-100.0) fL MCH (25.0-35.0) pg MCHC (31.0-37.0) g/dL RDW (11.5-15.5) % Neutrophils # (1.3-7.7) k/uL APTT (22.0-30.0) sec ABG pCO2 89 H* 85 H* 73 H* (35-45) mmHg ABG pO2 (83-108) mmHg ABG HCO3 40 H* 41 H* (21-25) mmol/L ABG Total CO2 (19-24) mmol/L ABG O2 Saturation (94-97) % Sodium (137-145) mmol/L Chloride (98-107) mmol/L Carbon Dioxide (22-30) mmol/L BUN (7-17) mg/dL Creatinine (0.52-1.04) mg/dL Glucose (74-99) mg/dL POC Glucose (mg/dL) (75-99) mg/dL Calcium (8.4-10.2) mg/dL ALT (4-34) U/L CK-MB (CK-2) (0.0-2.4) ng/mL C-Reactive Protein (<10.0) mg/L Total Protein (6.3-8.2) g/dL Albumin (3.5-5.0) g/dL Urine Appearance (Clear) Urine Protein (Negative) Ur Leukocyte Esterase (Negative) Urine RBC (0-5) /hpf Urine WBC (0-5) /hpf Urine Bacteria (None) /hpf Urine Mucus (None) /hpf Urine Yeast (Budding) (None) /hpf 04/17/20 04/17/20 04/17/20 Range/Units 00:10 04:15 04:15 WBC 18.3 H (3.8-10.6) k/uL RBC 3.69 L (3.80-5.40) m/uL Hgb 8.7 L (11.4-16.0) gm/dL Hct 28.2 L (34.0-46.0) % MCV 76.5 L (80.0-100.0) fL MCH 23.7 L (25.0-35.0) pg MCHC (31.0-37.0) g/dL RDW 17.8 H (11.5-15.5) % Neutrophils # 15.3 H (1.3-7.7) k/uL APTT (22.0-30.0) sec ABG pCO2 (35-45) mmHg ABG pO2 (83-108) mmHg ABG HCO3 (21-25) mmol/L ABG Total CO2 (19-24) mmol/L ABG O2 Saturation (94-97) % Sodium 129 L (137-145) mmol/L Chloride 87 L (98-107) mmol/L Carbon Dioxide 45 H* (22-30) mmol/L BUN 22 H (7-17) mg/dL Creatinine 0.47 L (0.52-1.04) mg/dL Glucose 101 H (74-99) mg/dL POC Glucose (mg/dL) 103 H (75-99) mg/dL Calcium 8.3 L (8.4-10.2) mg/dL ALT (4-34) U/L CK-MB (CK-2) (0.0-2.4) ng/mL C-Reactive Protein 10.3 H (<10.0) mg/L Total Protein 5.0 L (6.3-8.2) g/dL Albumin 2.5 L (3.5-5.0) g/dL Urine Appearance (Clear) Urine Protein (Negative) Ur Leukocyte Esterase (Negative) Urine RBC (0-5) /hpf Urine WBC (0-5) /hpf Urine Bacteria (None) /hpf Urine Mucus (None) /hpf Urine Yeast (Budding) (None) /hpf 04/17/20 04/17/20 04/17/20 Range/Units 04:15 05:00 05:08 WBC (3.8-10.6) k/uL RBC (3.80-5.40) m/uL Hgb (11.4-16.0) gm/dL Hct (34.0-46.0) % MCV (80.0-100.0) fL MCH (25.0-35.0) pg MCHC (31.0-37.0) g/dL RDW (11.5-15.5) % Neutrophils # (1.3-7.7) k/uL APTT (22.0-30.0) sec ABG pCO2 78 H* (35-45) mmHg ABG pO2 (83-108) mmHg ABG HCO3 43 H* (21-25) mmol/L ABG Total CO2 46 H (19-24) mmol/L ABG O2 Saturation 99.0 H (94-97) % Sodium (137-145) mmol/L Chloride (98-107) mmol/L Carbon Dioxide (22-30) mmol/L BUN (7-17) mg/dL Creatinine (0.52-1.04) mg/dL Glucose (74-99) mg/dL POC Glucose (mg/dL) (75-99) mg/dL Calcium (8.4-10.2) mg/dL ALT (4-34) U/L CK-MB (CK-2) 2.9 H (0.0-2.4) ng/mL C-Reactive Protein (<10.0) mg/L Total Protein (6.3-8.2) g/dL Albumin (3.5-5.0) g/dL Urine Appearance Cloudy H (Clear) Urine Protein Trace H (Negative) Ur Leukocyte Esterase Moderate H (Negative) Urine RBC 8 H (0-5) /hpf Urine WBC 25 H (0-5) /hpf Urine Bacteria Rare H (None) /hpf Urine Mucus Rare H (None) /hpf Urine Yeast (Budding) Many H (None) /hpf 04/17/20 04/17/20 04/17/20 Range/Units 12:32 12:32 12:32 WBC 16.9 H (3.8-10.6) k/uL RBC (3.80-5.40) m/uL Hgb 9.3 L (11.4-16.0) gm/dL Hct 30.3 L (34.0-46.0) % MCV 76.5 L (80.0-100.0) fL MCH 23.5 L (25.0-35.0) pg MCHC 30.7 L (31.0-37.0) g/dL RDW 18.0 H (11.5-15.5) % Neutrophils # 14.1 H (1.3-7.7) k/uL APTT 20.7 L (22.0-30.0) sec ABG pCO2 (35-45) mmHg ABG pO2 (83-108) mmHg ABG HCO3 (21-25) mmol/L ABG Total CO2 (19-24) mmol/L ABG O2 Saturation (94-97) % Sodium 131 L (137-145) mmol/L Chloride 89 L (98-107) mmol/L Carbon Dioxide 48 H* (22-30) mmol/L BUN 19 H (7-17) mg/dL Creatinine 0.39 L (0.52-1.04) mg/dL Glucose (74-99) mg/dL POC Glucose (mg/dL) (75-99) mg/dL Calcium 8.3 L (8.4-10.2) mg/dL ALT 35 H (4-34) U/L CK-MB (CK-2) (0.0-2.4) ng/mL C-Reactive Protein (<10.0) mg/L Total Protein 5.0 L (6.3-8.2) g/dL Albumin 2.5 L (3.5-5.0) g/dL Urine Appearance (Clear) Urine Protein (Negative) Ur Leukocyte Esterase (Negative) Urine RBC (0-5) /hpf Urine WBC (0-5) /hpf Urine Bacteria (None) /hpf Urine Mucus (None) /hpf Urine Yeast (Budding) (None) /hpf 04/17/20 Range/Units 18:10 WBC (3.8-10.6) k/uL RBC (3.80-5.40) m/uL Hgb (11.4-16.0) gm/dL Hct (34.0-46.0) % MCV (80.0-100.0) fL MCH (25.0-35.0) pg MCHC (31.0-37.0) g/dL RDW (11.5-15.5) % Neutrophils # (1.3-7.7) k/uL APTT (22.0-30.0) sec ABG pCO2 70 H (35-45) mmHg ABG pO2 111 H (83-108) mmHg ABG HCO3 45 H* (21-25) mmol/L ABG Total CO2 47 H (19-24) mmol/L ABG O2 Saturation 99.3 H (94-97) % Sodium (137-145) mmol/L Chloride (98-107) mmol/L Carbon Dioxide (22-30) mmol/L BUN (7-17) mg/dL Creatinine (0.52-1.04) mg/dL Glucose (74-99) mg/dL POC Glucose (mg/dL) (75-99) mg/dL Calcium (8.4-10.2) mg/dL ALT (4-34) U/L CK-MB (CK-2) (0.0-2.4) ng/mL C-Reactive Protein (<10.0) mg/L Total Protein (6.3-8.2) g/dL Albumin (3.5-5.0) g/dL Urine Appearance (Clear) Urine Protein (Negative) Ur Leukocyte Esterase (Negative) Urine RBC (0-5) /hpf Urine WBC (0-5) /hpf Urine Bacteria (None) /hpf Urine Mucus (None) /hpf Urine Yeast (Budding) (None) /hpf Microbiology - Last 24 Hours (Table) 04/16/20 11:58 Catheter Tip Culture - Preliminary Catheter Tip 04/04/20 14:12 Acid Fast Bacilli Smear - Final Bronchial Washings - Right Acid Fast Bacilli Culture - Preliminary 04/16/20 10:45 Gram Stain - Preliminary Neck Wound Culture - Preliminary 04/13/20 19:01 Blood Culture - Preliminary Blood No Growth after 72 hours 04/13/20 18:41 Blood Culture - Preliminary Blood No Growth after 72 hours 04/16/20 10:45 Anaerobic Culture - Preliminary Neck Assessment and Plan Assessment: Bilateral patchy groundglass opacities Secondary to pneumonia. Patient possible ARDS Acute hypoxic respiratory failure secondary to pneumonia currently patient is on mechanical ventilator. Status post tracheostomy and PEG placement on 04/11 Bilateral pneumothorax. Status post bilateral chest tube placement. Acute asthma exacerbation hypernatremia Recent history of IV drug abuse, about 2 weeks prior to admission non-Compliance to therapy. The patient left [place] in [facility] History of ALL currently in remission. History of Anxiety Nicotine dependence, everyday smoker Plan: This is a 29 years old female who presents with bilateral pneumonia and possible ARDS and bilateral pneumothorax status post chest tube. Continue with antibiotic, continue with steroids. Patient is considered for DCD donation. Follow-up recommendation by pulmonary/critical care team R following the case closely. Labs and medication were reviewed.. Continue same treatment. Continue with symptomatic treatment. Resume home medication. Monitor lytes and vitals. DVT and GI prophylaxis. Further recommendationsas per clinical course of the patient DVT prophylaxis: Subcutaneous Lovenox GI Prophylaxis: Pepcid Prognosis is guarded
[2020-04-17 21:03] LABS: Anisocytosis Slight; Basophils # (A) 0.2 k/uL (0-0.2); Basophils % (A) 1 %; Eosinophils # (A) 0.1 k/uL (0-0.7); Eosinophils % (A) 1 %; HCT 29.9 % (34.0-46.0); HGB 9.2 gm/dL (11.4-16.0); Hypochromasia Marked; Lymphocytes # (A) 1.5 k/uL (1.0-4.8); Lymphocytes % (A) 9 %; MCH 23.4 pg (25.0-35.0); MCHC 30.9 g/dL (31.0-37.0); MCV 75.5 fL (80.0-100.0); Mean Platelet Volume 8.7; Microcytosis Slight; Monocytes # (A) 0.6 k/uL (0-1.0); Monocytes % (A) 3 %; Neutrophils % (A) 86 %; Platelet Count 154 k/uL (150-450); Poikilocytosis Slight; RBC 3.96 m/uL (3.80-5.40); WBC 17.4 k/uL (3.8-10.6)
[2020-04-17 21:04] LABS: Ionized Calcium 4.5 mg/dL (4.5-5.3)
[2020-04-17 21:12] LABS: ALT 41 U/L (4-34); AST 44 U/L (14-36); African American GFR (CKD) >90 (>60 ml/min/1.73 sqM); Albumin 2.3 g/dL (3.5-5.0); Alkaline Phosphatase 55 U/L (38-126); Amylase 53 U/L (30-110); Blood Urea Nitrogen 14 mg/dL (7-17); Calcium 7.9 mg/dL (8.4-10.2); Chloride 89 mmol/L (98-107); Glucose 104 mg/dL (74-99); Lipase 80 U/L (23-300); Magnesium 1.5 mg/dL (1.6-2.3); Non-African American GFR(CKD) >90 (>60 ml/min/1.73 sqM); Phosphorus 3.2 mg/dL (2.5-4.5); Potassium 3.7 mmol/L (3.5-5.1); Sodium 133 mmol/L (137-145); Total Bilirubin 0.4 mg/dL (0.2-1.3); Total Protein 4.7 g/dL (6.3-8.2)
[2020-04-17 21:24] LABS: Anion Gap -1 mmol/L; Carbon Dioxide 45 mmol/L (22-30)
[2020-04-17 21:28] LABS: INR 0.9 (<1.2); Prothrombin Time 9.8 sec (9.0-12.0)
[2020-04-17 21:35] LABS: Partial Thromboplastin Time 21.1 sec (22.0-30.0)
[2020-04-17 22:58] LABS: Appearance,Urine Cloudy (Clear); Bilirubin,Urine Negative (Negative); Blood,Urine Large (Negative); Budding Yeast,Urine Rare /hpf; Color,Urine Light Yellow; Glucose,Urine (UA) Negative (Negative); Ketones,Urine Negative (Negative); Leukocyte Esterase,Urine Large (Negative); Nitrite,Urine Negative (Negative); PH, Urine 6.5 (5.0-8.0); Protein,Urine 1+ (Negative); RBC,Urine 52 /hpf (0-5); Specific Gravity,Urine 1.007 (1.001-1.035); Urobilinogen,Urine <2.0 mg/dL (<2.0); WBC,Urine 19 /hpf (0-5)
[2020-04-17] MEDS ORDERED: Magnesium Replacement Protocol 1 EACH MISC MISCELLANE PRN (23:15)
[2020-04-18] MEDS: ARTIFICIAL TEARS-HYPROMELLOSE DROPS 15 ML BTL BOTH EYES SCH ×6 (00:03→20:05)
[2020-04-18] MEDS: POTASSIUM CHLORIDE 10 MEQ in WATER FOR INJECTION 1 100ML.BAG IVPB SCH ×2 (00:03→01:14)
[2020-04-18] MEDS: MAGNESIUM SULFATE-D5W PMX 1 GM in DEXTROSE/WATER 1 100ML.BAG IVPB SCH ×4 (00:03→09:19)
[2020-04-18] MEDS: CISATRACURIUM 200 MG in SODIUM CHLORIDE 0.9% 180 ML IV SCH ×2 (03:17→17:00)
[2020-04-18 05:18] LABS: ABG Base Excess 21.6 mmol/L; ABG Oxygen Saturation 98.3 % (94-97); ABG PH 7.37 (7.35-7.45); ABG PO2 97 mmHg (83-108); ABG TCO2 50 mmol/L (19-24); Allen Test Performed? Yes
[2020-04-18 05:22] LABS: ABG PCO2 82 mmHg (35-45)
[2020-04-18 05:24] LABS: ABG HCO3 47 mmol/L (21-25)
[2020-04-18 05:39] LABS: Anisocytosis Slight; Basophils # (A) 0.1 k/uL (0-0.2); Basophils % (A) 1 %; Eosinophils # (A) 0.2 k/uL (0-0.7); Eosinophils % (A) 1 %; HCT 28.8 % (34.0-46.0); Hypochromasia Marked; Lymphocytes # (A) 1.3 k/uL (1.0-4.8); Lymphocytes % (A) 8 %; MCH 23.7 pg (25.0-35.0); MCHC 31.1 g/dL (31.0-37.0); MCV 76.1 fL (80.0-100.0); Mean Platelet Volume 8.6; Microcytosis Slight; Monocytes # (A) 0.5 k/uL (0-1.0); Monocytes % (A) 3 %; Neutrophils # (A) 14.8 k/uL (1.3-7.7); Neutrophils % (A) 88 %; Platelet Count 135 k/uL (150-450); Poikilocytosis Slight; RBC 3.78 m/uL (3.80-5.40); RDW 18.2 % (11.5-15.5); WBC 16.9 k/uL (3.8-10.6)
[2020-04-18 05:54] LABS: INR 0.9 (<1.2); Prothrombin Time 9.8 sec (9.0-12.0)
[2020-04-18 05:56] LABS: Partial Thromboplastin Time 21.8 sec (22.0-30.0)
[2020-04-18 06:49] LABS: ALT 48 U/L (4-34); AST 44 U/L (14-36); African American GFR (CKD) >90 (>60 ml/min/1.73 sqM); Albumin 2.3 g/dL (3.5-5.0); Alkaline Phosphatase 61 U/L (38-126); Amylase 38 U/L (30-110); Blood Urea Nitrogen 13 mg/dL (7-17); Calcium 7.7 mg/dL (8.4-10.2); Chloride 88 mmol/L (98-107); Glucose 135 mg/dL (74-99); Lipase 59 U/L (23-300); Magnesium 1.9 mg/dL (1.6-2.3); Non-African American GFR(CKD) >90 (>60 ml/min/1.73 sqM); Phosphorus 3.2 mg/dL (2.5-4.5); Sodium 133 mmol/L (137-145); Total Bilirubin 0.5 mg/dL (0.2-1.3); Total Protein 4.7 g/dL (6.3-8.2)
[2020-04-18 07:00] LABS: Anion Gap 0 mmol/L
[2020-04-18 07:10] LABS: Carbon Dioxide 45 mmol/L (22-30)
[2020-04-18 07:11] LABS: Appearance,Urine Turbid (Clear); Bacteria,Urine Occasional /hpf; Bilirubin,Urine Negative (Negative); Blood,Urine Moderate (Negative); Budding Yeast,Urine Many /hpf; Color,Urine Yellow; Glucose,Urine (UA) Negative (Negative); Hyphae Yeast, Urine Occasional /hpf; Ketones,Urine Negative (Negative); Leukocyte Esterase,Urine Large (Negative); Mucus,Urine Few /hpf; Nitrite,Urine Negative (Negative); PH, Urine 5.5 (5.0-8.0); Protein,Urine 1+ (Negative); RBC,Urine >182 /hpf (0-5); Specific Gravity,Urine 1.014 (1.001-1.035); Squamous Epithelial Cell,Urine 2 /hpf (0-4); Urobilinogen,Urine <2.0 mg/dL (<2.0); WBC,Urine >182 /hpf (0-5)
[2020-04-18] MEDS ORDERED: NOREPINEPHRIN 4 MG-0.9% NS PMX 4 MG/250 ML ML IV ONE (07:55)
--- NOTE | 2020-04-18 08:06 | XR ---
EXAMINATION TYPE: XR chest 1V portable DATE OF EXAM: 04/18/2020 COMPARISON: Prior chest x-ray 04/17/2020 HISTORY: Tube placement TECHNIQUE: Single frontal view of the chest is obtained. FINDINGS: There are chest tubes at the right lung base, left upper chest as on prior. Tracheostomy t ube shows the distal tip overlying the tracheal air column. Biapical pleural thickening persists. Api leonid bullous disease is again seen. There may be some improvement in left-sided pneumothorax. Heart si ze is stable. Bilateral airspace disease is again noted, blunting the costophrenic angles is present suggesting small effusions. Patient is rotated. Left subclavian central venous catheter shows the dis usama tip in the right atrium. IMPRESSION: Findings are similar to prior exam. Correlate for pneumonia, small effusions. No sizable pneumothorax.
[2020-04-18] MEDS ORDERED: SODIUM CHLORIDE 0.9% 1,000 ML IV ONE (08:16)
[2020-04-18] MEDS: NOREPINEPHRINE 8 MG in SODIUM CHLORIDE 0.9% 250 ML IV SCH (08:37)
--- NOTE | 2020-04-18 09:17 | ECHOF ---
Referral Reason:follow up for GOL MEASUREMENTS -------- HEIGHT: 152.4 cm WEIGHT: 49.4 kg BP: 126/75 RVIDd: 2.1 cm (< 3.3) IVSd: 1.0 cm (0.6 - 1.1) LVIDd: 3.2 cm (3.9 - 5.3) LVPWd: 0.9 cm (0.6 - 1.1) IVSs: 1.2 cm LVIDs: 2.7 cm LVPWs: 1.3 cm LA Diam: 2.6 cm (2.7 - 3.8) LAESV Index (A-L): 12.36 ml/m Ao Diam: 3.3 cm (2.0 - 3.7) AV Cusp: 1.9 cm (1.5 - 2.6) MV EXCURSION: 28.308 mm (> 18.000) MV EF SLOPE: 148 mm/s (70 - 150) EPSS: 0.1 cm MV E Mateo: 0.77 m/s MV DecT: 133 ms MV A Mateo: 0.95 m/s MV E/A Ratio: 0.81 AV maxP.83 mmHg AV meanP.44 mmHg RAP: 5.00 mmHg RVSP: 38.09 mmHg FINDINGS -------- Sinus rhythm. This was a technically good study. The left ventricular size is normal. Left ventricular wall thickness is normal. Overall left vent ricular systolic function is normal with, an EF between 55 - 60 %. The right ventricle is normal in size. Normal LA size by volume 22+/-6 ml/m2. The right atrial size is normal. Interatrial and interventricular septum intact. The aortic valve is trileaflet, and appears structurally normal. No aortic stenosis or regurgitation. The mitral valve is normal. There is trace mitral regurgitation. Mild tricuspid regurgitation present. There is mild pulmonary hypertension. The right ventricular systolic pressure, as measured by Doppler, is 38.09mmHg. Trace/mild (physiologic) pulmonic regurgitation. The aortic root size is normal. Normal inferior vena cava with normal inspiratory collapse consistent with estimated right atrial pre ssure of 5 mmHg. There is no pericardial effusion. CONCLUSIONS -------- 1. Left ventricular wall thickness is normal. 2. Overall left ventricular systolic function is normal with, an EF between 55 - 60 %. 3. Normal LA size by volume 22+/-6 ml/m2. 4. The aortic valve is trileaflet, and appears structurally normal. No aortic stenosis or regurgitati on. 5. Mild tricuspid regurgitation present. 6. There is mild pulmonary hypertension. 7. Trace/mild (physiologic) pulmonic regurgitation. 8. There is no pericardial effusion. SIDE PANEL HANGER: Bel Bennett RDCS
[2020-04-18] MEDS: CEFEPIME 2 GM in SODIUM CHLORIDE 0.9% 100 ML IVPB SCH ×2 (09:19→20:04)
[2020-04-18] MEDS ORDERED: POTASSIUM CHLORIDE 20 MEQ in WATER FOR INJECTION 1 100ML.BAG IVPB STA (09:32)
--- NOTE | 2020-04-18 10:35 | P.PN ---
Subjective Progress Note Date: 04/18/20 Principal diagnosis: Acute hypoxic respiratory failure secondary to bilateral pneumonia and bilateral pneumothoraces. Severe underlying COPD 04/04/2020 the patient is being seen for a follow-up. The patient is going to undergo bronchoscopy today. I was able to obtain records from the hospital as the [facility] and at that time the patient was hospitalized for bilat eral pneumonia. CAT scan of the chest findings were similar to the ones that he had [facility]. The patient underwent further investigation including alpha- 1 antitrypsin level came back within normal, cystic fibrosis mutation screen that came back negative, HIV screen that came back negative, fungal screen including Histoplasma urine antigen, cryptococcal serum antigen and Aspergillus antibodies and all of these were negative. For now, the patient is scheduled to undergo bronchoscopy and bronchial lavage. Echocardiogram showed no evidence of any valvular disease or vegetations. She is still short of breath and she has increased dyspnea cough chest tightness and wheezing. No significant sputum production. On 04/05/2020, the patient is in intensive care unit. Mother the patient underwent a bronchoscopy and bronchial lavage yesterday and the procedure was essentially uncomplicated. Yesterday evening and dip stand loader hours, the patient became progressively more short of breath, tachypnea, tachycardic and hypoxic. At that point, the emergency team was called and the patient was evaluated twice. During the second evaluation, chest x-ray was done and the patient was found to have diffuse but the pulmonary infiltrates in addition to hypoxic respiratory failure. The patient was started on a BiPAP at a pressure of 12/5 with an FiO2 of 60% and the patient got transferred to the ICU. She was also given a dose of Lasix. She started producing adequate amount of urine o utput. Nevertheless, she continued to have agonal breathing, low tidal volume and increased tachypnea with impending signs of respiratory failure even while being on a BiPAP. At that point, I made a decision to intubate the patient in intensive care unit. The patient was intubated by #8 orotracheal tube. She was placed on a mechanical ventilator. A triple lumen catheter was established. An outlying catheter was also established. The post intubation blood gas showed a pH of 7.25 with a pCO2 of 87 pO2 of 386 and this was done on assist control mode at the rate of 20 with tidal volume of 350 and FiO2 of 100% with a PEEP of 5. FiO2 is down to 50%. The patient at this point in time is sedated with propofol and the patient is calm and comfortable. Fentanyl was also added to improve for sedation while being a mechanical ventilator. Results of the bronchioloalveolar lavage is still negative. No microbial growth. The patient remains on a combination of IV cefepime and vancomycin. The post intubation chest x-ray showed bilateral pleural thickening and bilateral airspace disease seen although somewhat improved compared to the earlier chest x-rays. ET tube was around 1 cm above the sandra. Blood work from this morning showed a hemoglobin of 7.2. White cell count of 15.8. Aggressive the blood work essentially within normal limits. On 04/06/2020, the patient remains intubated on a mechanical. On today's evaluation the patient is on propofol running at 50 g per KG per minute. The patient is also on fentanyl drip at 3 g per KG per minute. IV fluids at KVO and the patient is on levo fed at 0.1 mg per KG per minute. The patient remains on mechanical ventilator on assist control mode at the rate of 24 with a tidal volume loss was 75 with an FiO2 of 50% and PEEP of 5. Peak airway pressure 37. Plateau airway pressure is 35. Patient is receiving tube feed with vital high protein at the rate of 10 mL an hour and the patient will be advanced to goal. The bronchioloalveolar lavage that was done earlier came back negative for any microbial growth. A chest x-ray from today shows some improvement and by the pulmonary infiltrate that was established on yesterday's chest x-ray. The patient remains on a combination of cefepime and vancomycin. Lasix will be re started. No other significant events otherwise for now. She is requiring norepinephrine infusion for blood pressure control. Echocardiogram at shown a preserved LV function without any significant LV dysfunction. Triple lumen catheter has been established and have right femoral vein. She also has an arterial line catheter. I was concerned about elevated airway pressures in this patient. Unable to ventilate with a higher volumes as the patient's pressure will go significantly high. I switch this patient to a pressure control mode of ventilation. 04/07/2020, the patient is being seen for follow-up. The patient remains intubated on a mechanical ventilator. The patient is on assist control ventilation and on today's evaluation the patient is on a pressure control of 30 with a PEEP of 5 and FiO2 of 50% with a rate of 34. The blood gases from today showed a pH of 7.47 with a pCO2 of 69 a pO2 of 168 and a follow-up chest x-ray from today showed improvement in the bilateral pulmonary infiltrates. Nevertheless, there was a note of a right-sided pneumothorax. Based on this, a CAT scan of the chest was done to confirm the findings and the patient did have a right-sided pneumothorax there was moderate in size in addition to bilateral diffuse bilateral a disease and small bilateral pleural effusions. At that point, a 24-Portuguese chest tube was inserted in the right hemithorax and a follow- up chest x-ray is pending for now. The patient remains hemodynamically stable and there was no evidence of any tension due to this pneumothorax. I also did some ventilator changes. I dropped the pressure control down to 20 and dropped a respiratory rate down to 24 and drop the FiO2 down to 40%. A repeat blood gases was done and the repeat blood gases showed a pH of 7.37 with a pCO2 of 89 pO2 of 95. The patient's white cell count of 10.4 with hemoglobin of 7.2. The rest of the blood work and electrodes with a component of metabolic alkalosis with a serum bicarb of 50 and a sodium of 141. The patient remains on broad- spectrum antibiotics. Vancomycin was discontinued as the patient's bronchial alveolar lavage did not reveal any microbial growth and I'm going to keep this p atient only on cefepime for now. The patient remains sedated with a combination of fentanyl erythematous events per KG per minute and for prophylaxis for microvascular KG per minute. The patient is also being diuresis with Lasix at a dose of 20 mg IV push every 12 hours. The patient is on vital high protein at the rate of 30 mL an hour. 04/08/2020, the patient remains intubated on a mechanical ventilator. Unfortunately, she continues to have a small right-sided pneumothorax despite a chest tube insertion. The air leak from the right-sided chest tube is minimal at this point in time and output is minimal. The patient is extremely debilitated. 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 She has advanced COPD with chronic lung disease. She is cu rrently on a pressure control mode of ventilation with a pressure control of 20 with an FiO2 of 40% with a PEEP of 5 and the rate of 24. The blood gases showed a pH of 7.43 with a pCO2 of 84 and pO2 of 111. The peak airway pressure 33. The static airway pressure is 27. The patient remains sedated with propofol at the rate of 50 g per KG per minute and fentanyl is running at a rate of 3 g per KG per minute. Norepinephrine is running at 0.02 g per KG per minute. Cultures from the bronchioloalveolar lavage has been negative and the patient is still on cefepime as a broad-spectrum antibiotic coverage for now. She is being diuresed with IV Lasix at a dose of 20 mg IV push every 12 hours. The dose of Lasix will be tapered as the patient has been adequate fluid balance. The chest x-ray findings shows improvement and by the pulmonary infiltrates. There is however a stable loculated right-sided pneumothorax and the right-sided chest tube is in good location. ET tube is in good location. The patient was started on enteral feeding for nutritional support. I'm very much convinced that the patient would benefit from a PEG and trach as the patient has advanced lung disease and she is quite debilitated and malnourished at this young age. On a separate note, earlier this morning the patient went into a bout of an SVT with a heart rate of 160. The patient was given 2 doses of IV Rocephin, 6 mg and 12 mg without success. Her heart rate gradually is improving at this point in time and over the next few hours, the patient's heart rate dropped down to 112 Reevaluated today on 04/09/20, patient remains intubated and mechanically ventilated. She is on pressure control mode of mechanical ventilation, pressure control is set at 24, inspiratory time is 0.65 seconds patient is on 40% FiO2 and PEEP of 5. She was intubated on 04/05/20, she is on propofol at 50 mcg/kg/m, fentanyl at 3 mcg/kg/h, she is also on norepinephrine at 0.01 mcg/kg/m. IV fluid is at 20 mL per hour. Patient has a right femoral triple- lumen catheter. Right radial arterial line. Right-sided chest tube with air leak noted. And today she ended up with a left-sided chest tube for left-sided pneumothorax which was noted on the chest x-ray earlier today. Patient is on tube feeding vital Hb 53 mL/h and this is the goal is also on cefepime empirically. ABG today showed a pO2 of 148 pCO2 of 74 pH of 7.34. WBC count is 7.6 hemoglobin is 7.8. Electrolytes and renal profile are normal. Bicarb is 39. This morning chest x-ray showed left-sided pneumothorax which is a new hence I went ahead and placed a left sided chest tube 28 [place] chest tube was placed since the patient is on mechanical ventilation. Not much changes noted in the pneumothorax after the chest tube placement Reevaluated today on 04/10/20, patient remains intubated and mechanically ventilated ventilator settings are pressure control set at 26, FiO2 is 35%, PEEP is at 5, inspiratory time is 0.70 and the rate is 24. Patient seems to be doing better today, better and adequate tidal volumes noted, just over 300 mL tidal volumes. Chest x-ray continues to show bilateral pneumothoraces secondary to barotrauma. Chest tubes are both in place. ABG today showed a pO2 of 211 pCO2 of 57 pH of 7.40, hence I cut down the FiO2 to 35%. Both tubes continued to have intermittent leaks. Patient is on fentanyl which I cut down to 1 mcg/kg/h and she is on propofol at 50. IV fluids at KVO, patient is do not feeding at present mostly because she is scheduled to undergo a PEG tube placement and tracheostomy today. CBC is relatively normal except for hemoglobin of 8.1. Electrolytes showed a sodium of 147 bicarb history renal profile is normal Reevaluated today on 04/11/20, patient remains in the ICU, intubated and mec hanically ventilated. Patient remains on assist control rate of 30 tidal volume is 250 FiO2 is 40% and PEEP of 5. ABG today showed a pO2 of 139 pCO2 of 81 pH of 7.27. Chest x-ray continues to show bilateral pneumothoraces, not expanding, unchanged. Continues to have 2 bilateral chest tubes. One every hour side. Continues to have some air leak in the right-sided chest tube, and intermittent leak in the left sided chest tube. Patient remains on propofol at 50 mcg/kg/m, she is also on fentanyl at 50 mcg/kg/m, Nimbex at 1 mcg/kg/m, IV fluid is at KVO. Patient is also on enteral feeding. Yesterday the patient was switched from pressure control to assist control mode of mechanical ventilation. And that seems to be working better for the patient today. Gases are actually a bit improving. Patient is scheduled to undergo tracheostomy and PEG tube placement today. CBC showed WBC count of 10 hemoglobin of 8.7 hematocrit of 30.6. Her sodium seems to be high today at 152 hence the patient will be placed on free water via nasogastric tube, and we'll switch her IV fluid to D5W. Will discontinue Lasix. Reevaluated today on 04/12/20, patient remains in the ICU, intubated, mechanical ly ventilated, she is now on assist control mode of mechanical ventilation, rate is 30, FiO2 is 35%, PEEP is 5 and tidal volume is 250. I did cut down the rate down to 26, decrease the flow to 65 L/m, ABG showed a pO2 of 119 pCO2 of 71 pH of 7.37. Patient is on Nimbex, propofol at 50 mcg/kg/m, fentanyl, and her IV fluid is D5W at 100 mL per hour. Patient went off Nimbex earlier today, however she was noted to be more tachypneic, tachycardic, has had to be placed back on Nimbex to adequately ventilate the patient. Portable chest x-ray showed basically no change, continues to have bilateral chest tubes, and her bilateral pneumothoraces are unchanged. Basic metabolic profile today is normal bicarb is 43. Renal profile is normal WBC count is 17.1 hemoglobin is 8.2 hematocrit is 30.1. Reevaluated today on 04/13/20, patient remains in the ICU, intubated and mechanically ventilated. Remains basically on the same ventilator settings assist control rate of 30, tidal volume is 250 rate is 30, FiO2 is 35%, and PEEP is 5. ABG earlier today showed a pO2 of 105 pCO2 of 80 9H of 7.23, and based on that ABG, assist control rate was increased. Patient remains on fentanyl, propofol, Nimbex, and her follow-up chest x-ray today showed persistent low relatively large right-sided pneumothorax,, thoracic surgery was consulted, and recommended another chest tube to be placed. Went ahead and placed another right-sided chest tube, definite improvement noted in the right-sided pneumothorax, but did not completely resolved. Multiple attempts were made to discontinue Nimbex, however the patient gets extremely agitated, tachypneic and tachycardic, and gets to the point where it is extremely difficult to ventilate the patient. Hence lay's back on Nimbex again today after a trial of weaning from Nimbex. Electrolytes were noted to be normal. Renal profile is normal. WBC count is 18.1 hemoglobin is 8.2. Reevaluated today on 04/14/20, patient remains intubated and mechanically venti lated. Her ventilator settings are assist control rate of 30 and I increased that to 32. Tidal volume remains at 250, FiO2 35% and PEEP of 5. ABG this morning showed a pO2 of 77 pCO2 of 85 pH of 7.27. Patient had episodes of fever last night, tachycardic, and had episodes of supraventricular tachycardia, had to be Ambu bag at night but presently back on mechanical ventilation. Ask cardiology to evaluate the patient for possible endocarditis, previous transthoracic echocardiogram was nondiagnostic for endocarditis labs today showed elevated sodium of 150 potassium 3.9 chloride 109 bicarb is 41 BUN is 32 creatinine 0.5. WBC count is 20.7 hemoglobin is 7.9. Platelets are normal. Chest x-ray showed some pulmonary fibrotic changes with apical pleural thickening, the right-sided pneumothorax is definitely less, continues to have a small left apical pneumothorax despite chest tube placement. Intermittent air leak is noted in the second right sided chest tube. Reevaluated today on patient remains on mechanical ventilation, her ventilator settings are assist control rate of 32 tidal volume is 250 FiO2 35% and PEEP of 5. ABG today showed a pO2 of 114 pCO2 of 73 and pH of 7.39, actually this is the best ABG documented on this patient since admission. Her hemoglobin however today is 6.7, and I plan to transfuse the patient 1 unit of packed RBCs. Electrolytes are normal bicarb is 46, and renal profile is normal. Chest x-ray showed bilateral pulmonary fibrotic changes along with apical pleural thickening, scattered areas of infiltrates or edema noted bilaterally. Small left apical pneumothorax persists, continues to have chest tubes, 2 chest tubes on the right side, and one chest tube on the left side, very minimal intermittent air leak noted in the right-sided chest tube #2. No pneumothorax on the right side, patient remains on propofol at 40 mcg/kg/m, fentanyl at 4 mcg/kg/h, she is also on Nimbex 3 mcg/kg/m, and I have ordered to DC Nimbex. She is on enteral feeding vital Hp at 33 mL per hour. IV fluid is D5W was at 1 50 mL per hour because of her hypernatremia, however now that the sodium is corrected I cut it down to 100 mL/h. The patient is seen today 04/18/2020 in follow-up in the intensive care unit. She remains on the mechanical ventilator. Assist control at a rate of 32, tidal volume 250, FiO2 35% and a PEEP of 5. Morning blood gases reveal a P O2 of 97, pCO2 of 82 and a pH is 7.37. She remains sedated on to prevent at 30 mcg/mg/m, Nimbex at 5 mcg/kg/m, fentanyl at 2 mg/kg per hour. She is on pressors with norepinephrine at 0.15 mcg/kg/m. Her tube feeds are currently on hold. She did receive an extra 1.5 L of fluid today. She has received 1 unit of packed blood cells this admission. Current hemoglobin 9.0. White count 16.9. Sodium 133. Potassium 4.0. Bicarb 45. Creatinine 0.26. Urinalysis continues to reveal evidence of urinary tract infection. Remains on cefepime. Objective - Vital Signs Vital signs: Vital Signs Temp 98.5 F 04/18/20 04:00 Pulse 106 H 04/18/20 07:00 Resp 32 H 04/18/20 07:00 BP 105/66 04/17/20 19:00 Pulse Ox 100 04/18/20 07:00 Intake & Output 04/17/20 04/18/20 04/18/20 18:59 06:59 18:59 Intake Total 1407.535 9265.072 203 Output Total 2975 1790 150 Balance -1045.961 -24.928 53 Intake: IV 1286 1236 103 Cefepime 2 gm In Sodium 100 Chloride 0.9% 100 ml @ 25 mls/hr IVPB Q12HR [facility] Rx #:[id number] Dextrose 5% in Water 1, 1150 1200 100 000 ml @ 100 mls/hr IV . Q10H [facility] Rx#:[id number] Pressure bag 36 36 3 Intake, IV Titration 643.039 529.072 100 Amount Cisatracurium 200 mg In 196.763 156.42 Sodium Chloride 0.9% 180 ml @ 5 MCG/KG/MIN 14.85 mls/hr IV .[id number] [facility] Rx #:[id number] Norepinephrine 8 mg In 0 Sodium Chloride 0.9% 250 ml @ 0.05 MCG/KG/MIN 4. 789 mls/hr IV .Q24H [facility] Rx#:[id number] fentaNYL (PF) 2,500 mcg 172.59 301.62 In Sodium Chloride 0.9% 200 ml @ Per Protocol IV .Q0M [facility] Rx#:[id number] propofoL 1,000 mg In 273.686 71.032 100 Empty Bag 1 bag @ Titrate IV .Q0M [facility] Rx#: [id number] Output: Urine 2975 1790 150 Other: Voiding Method Indwelling Catheter Indwelling Catheter ABP, PAP, CO, CI - Last Documented Arterial Blood Pressure 98/60 - Exam Gen. appearance: Revealed a 29-year-old female, extremely frail and emaciated, malnourished, on mechanical ventilation Head atraumatic, normocephalic. HEENT: PERRLA, EOMI, neck, no neck masses, no JVD, no stridor.. CHEST EXAMINATION: Trachea is central. Symmetrical expansion.bilateral diminished air entry with bilateral scattered rhonchi. 2 right-sided chest tubes noted and 1 left-sided chest tube is noted. CARDIAC: Normal S1, S2 with no gallops. No murmurs ABDOMEN: Soft. Bowel sounds normal. No organomegaly. No abdominal bruits. Extremities: reveal no edema. No clubbing or cyanosis Neurologically sedated, and paralyzed, on multiple drips including Nimbex, fenta nyl, and propofol. Skin: No rash or skin lesions. Psychiatric: Could not assess. Patient is sedated Musculoskeletal: Significant muscle wasting noted bilaterally and the patient is extremely frail - Labs CBC & Chem 7: 04/18/20 05:30 04/18/20 05:30 Labs: Abnormal Lab Results - Last 24 Hours (Table) 04/17/20 04/17/20 04/17/20 Range/Units 12:32 12:32 12:32 WBC 16.9 H (3.8-10.6) k/uL RBC (3.80-5.40) m/uL Hgb 9.3 L (11.4-16.0) gm/dL Hct 30.3 L (34.0-46.0) % MCV 76.5 L (80.0-100.0) fL MCH 23.5 L (25.0-35.0) pg MCHC 30.7 L (31.0-37.0) g/dL RDW 18.0 H (11.5-15.5) % Plt Count (150-450) k/uL Neutrophils # 14.1 H (1.3-7.7) k/uL APTT 20.7 L (22.0-30.0) sec ABG pCO2 (35-45) mmHg ABG pO2 (83-108) mmHg ABG HCO3 (21-25) mmol/L ABG Total CO2 (19-24) mmol/L ABG O2 Saturation (94-97) % Sodium 131 L (137-145) mmol/L Chloride 89 L (98-107) mmol/L Carbon Dioxide 48 H* (22-30) mmol/L BUN 19 H (7-17) mg/dL Creatinine 0.39 L (0.52-1.04) mg/dL Glucose (74-99) mg/dL Calcium 8.3 L (8.4-10.2) mg/dL Ionized Calcium Barbara (4.5-5.3) mg/dL Magnesium (1.6-2.3) mg/dL AST (14-36) U/L ALT 35 H (4-34) U/L Total Protein 5.0 L (6.3-8.2) g/dL Albumin 2.5 L (3.5-5.0) g/dL Urine Appearance (Clear) Urine Protein (Negative) Urine Blood (Negative) Ur Leukocyte Esterase (Negative) Urine RBC (0-5) /hpf Urine WBC (0-5) /hpf Urine WBC Clumps (None) /hpf Urine Bacteria (None) /hpf Urine Mucus (None) /hpf Urine Yeast (Budding) (None) /hpf 04/17/20 04/17/20 04/17/20 Range/Units 18:10 20:45 20:45 WBC 17.4 H (3.8-10.6) k/uL RBC (3.80-5.40) m/uL Hgb 9.2 L (11.4-16.0) gm/dL Hct 29.9 L (34.0-46.0) % MCV 75.5 L (80.0-100.0) fL MCH 23.4 L (25.0-35.0) pg MCHC 30.9 L (31.0-37.0) g/dL RDW 18.0 H (11.5-15.5) % Plt Count (150-450) k/uL Neutrophils # 15.0 H (1.3-7.7) k/uL APTT 21.1 L (22.0-30.0) sec ABG pCO2 70 H (35-45) mmHg ABG pO2 111 H (83-108) mmHg ABG HCO3 45 H* (21-25) mmol/L ABG Total CO2 47 H (19-24) mmol/L ABG O2 Saturation 99.3 H (94-97) % Sodium (137-145) mmol/L Chloride (98-107) mmol/L Carbon Dioxide (22-30) mmol/L BUN (7-17) mg/dL Creatinine (0.52-1.04) mg/dL Glucose (74-99) mg/dL Calcium (8.4-10.2) mg/dL Ionized Calcium Barbara (4.5-5.3) mg/dL Magnesium (1.6-2.3) mg/dL AST (14-36) U/L ALT (4-34) U/L Total Protein (6.3-8.2) g/dL Albumin (3.5-5.0) g/dL Urine Appearance (Clear) Urine Protein (Negative) Urine Blood (Negative) Ur Leukocyte Esterase (Negative) Urine RBC (0-5) /hpf Urine WBC (0-5) /hpf Urine WBC Clumps (None) /hpf Urine Bacteria (None) /hpf Urine Mucus (None) /hpf Urine Yeast (Budding) (None) /hpf 04/17/20 04/17/20 04/18/20 Range/Units 20:45 20:45 05:07 WBC (3.8-10.6) k/uL RBC (3.80-5.40) m/uL Hgb (11.4-16.0) gm/dL Hct (34.0-46.0) % MCV (80.0-100.0) fL MCH (25.0-35.0) pg MCHC (31.0-37.0) g/dL RDW (11.5-15.5) % Plt Count (150-450) k/uL Neutrophils # (1.3-7.7) k/uL APTT (22.0-30.0) sec ABG pCO2 82 H* (35-45) mmHg ABG pO2 (83-108) mmHg ABG HCO3 47 H* (21-25) mmol/L ABG Total CO2 50 H (19-24) mmol/L ABG O2 Saturation 98.3 H (94-97) % Sodium 133 L (137-145) mmol/L Chloride 89 L (98-107) mmol/L Carbon Dioxide 45 H* (22-30) mmol/L BUN (7-17) mg/dL Creatinine 0.34 L (0.52-1.04) mg/dL Glucose 104 H (74-99) mg/dL Calcium 7.9 L (8.4-10.2) mg/dL Ionized Calcium Barbara (4.5-5.3) mg/dL Magnesium 1.5 L (1.6-2.3) mg/dL AST 44 H (14-36) U/L ALT 41 H (4-34) U/L Total Protein 4.7 L (6.3-8.2) g/dL Albumin 2.3 L (3.5-5.0) g/dL Urine Appearance Cloudy H (Clear) Urine Protein 1+ H (Negative) Urine Blood Large H (Negative) Ur Leukocyte Esterase Large H (Negative) Urine RBC 52 H (0-5) /hpf Urine WBC 19 H (0-5) /hpf Urine WBC Clumps (None) /hpf Urine Bacteria (None) /hpf Urine Mucus (None) /hpf Urine Yeast (Budding) Rare H (None) /hpf 04/18/20 04/18/20 04/18/20 Range/Units 05:30 05:30 05:30 WBC 16.9 H (3.8-10.6) k/uL RBC 3.78 L (3.80-5.40) m/uL Hgb 9.0 L (11.4-16.0) gm/dL Hct 28.8 L (34.0-46.0) % MCV 76.1 L (80.0-100.0) fL MCH 23.7 L (25.0-35.0) pg MCHC (31.0-37.0) g/dL RDW 18.2 H (11.5-15.5) % Plt Count 135 L (150-450) k/uL Neutrophils # 14.8 H (1.3-7.7) k/uL APTT (22.0-30.0) sec ABG pCO2 (35-45) mmHg ABG pO2 (83-108) mmHg ABG HCO3 (21-25) mmol/L ABG Total CO2 (19-24) mmol/L ABG O2 Saturation (94-97) % Sodium 133 L (137-145) mmol/L Chloride 88 L (98-107) mmol/L Carbon Dioxide 45 H* (22-30) mmol/L BUN (7-17) mg/dL Creatinine 0.36 L (0.52-1.04) mg/dL Glucose 135 H (74-99) mg/dL Calcium 7.7 L (8.4-10.2) mg/dL Ionized Calcium Barbara 4.3 L (4.5-5.3) mg/dL Magnesium (1.6-2.3) mg/dL AST 44 H (14-36) U/L ALT 48 H (4-34) U/L Total Protein 4.7 L (6.3-8.2) g/dL Albumin 2.3 L (3.5-5.0) g/dL Urine Appearance (Clear) Urine Protein (Negative) Urine Blood (Negative) Ur Leukocyte Esterase (Negative) Urine RBC (0-5) /hpf Urine WBC (0-5) /hpf Urine WBC Clumps (None) /hpf Urine Bacteria (None) /hpf Urine Mucus (None) /hpf Urine Yeast (Budding) (None) /hpf 04/18/20 04/18/20 Range/Units 05:30 06:00 WBC (3.8-10.6) k/uL RBC (3.80-5.40) m/uL Hgb (11.4-16.0) gm/dL Hct (34.0-46.0) % MCV (80.0-100.0) fL MCH (25.0-35.0) pg MCHC (31.0-37.0) g/dL RDW (11.5-15.5) % Plt Count (150-450) k/uL Neutrophils # (1.3-7.7) k/uL APTT 21.8 L (22.0-30.0) sec ABG pCO2 (35-45) mmHg ABG pO2 (83-108) mmHg ABG HCO3 (21-25) mmol/L ABG Total CO2 (19-24) mmol/L ABG O2 Saturation (94-97) % Sodium (137-145) mmol/L Chloride (98-107) mmol/L Carbon Dioxide (22-30) mmol/L BUN (7-17) mg/dL Creatinine (0.52-1.04) mg/dL Glucose (74-99) mg/dL Calcium (8.4-10.2) mg/dL Ionized Calcium Barbara (4.5-5.3) mg/dL Magnesium (1.6-2.3) mg/dL AST (14-36) U/L ALT (4-34) U/L Total Protein (6.3-8.2) g/dL Albumin (3.5-5.0) g/dL Urine Appearance Turbid H (Clear) Urine Protein 1+ H (Negative) Urine Blood Moderate H (Negative) Ur Leukocyte Esterase Large H (Negative) Urine RBC >182 H (0-5) /hpf Urine WBC >182 H (0-5) /hpf Urine WBC Clumps Many H (None) /hpf Urine Bacteria Occasional H (None) /hpf Urine Mucus Few H (None) /hpf Urine Yeast (Budding) Many H (None) /hpf Microbiology - Last 24 Hours (Table) 04/13/20 18:41 Blood Culture - Preliminary Blood No Growth after 96 hours 04/13/20 19:01 Blood Culture - Preliminary Blood No Growth after 96 hours 04/16/20 11:58 Catheter Tip Culture - Preliminary Catheter Tip Assessment and Plan Assessment: 1 Acute hypoxic respiratory failure with bilateral infiltrates, requiring intubation mechanical 2 Acute exacerbation of COPD. 3 Bilateral pneumothoraces secondary to barotrauma. 4 Status post placement of one left and 2 right-sided chest tubes for bilateral pneumothoraces. 5 History of IV drug abuse. 6 History of seizure disorder. 7 Generalized anxiety disorder. 8 Remote history of acute lymphocytic leukemia, in remission. 9 Severe malnutrition, BMI is 20.3, this is protein calorie malnutrition, severe in nature. 10 Chronic hypercapnic respiratory failure with metabolic compensation. 11 Hypernatremia with free water deficit, improving with free water given. Decreased IV fluids rate to 100 mL/h remains D5W for now. 12 Status post tracheostomy and PEG tube placement on 04/11/20. Plan: The patient was seen and evaluated by Dr. Sukhdev Morataya, labs, chest x-ray reviewed The patient is being evaluated by [facility] Currently a DO NOT RESUSCITATE CODE STATUS We'll continue to follow and make further recommendations based on her clinical status Critical care time 36 minutes I, the cosigning physician, performed a history & physical examination of the patient. Lungs sounds with bilateral scattered rhonchi. Maintaining good O2 saturations in the 90s on 5% FiO2 and a PEEP of 5 on the mechanical ventilator. I discussed the assessment and plan of care with my nurse practitioner, Alma menjivar. I attest to the above note as dictated by her. Time with Patient: Greater than 30
--- NOTE | 2020-04-18 10:49 | P.PN ---
Subjective Progress Note Date: 04/18/20 CHIEF COMPLAINT: Hypoxia HISTORY OF PRESENT ILLNESS: The patient is a 29-year-old female pre-existing his tory of methamphetamine abuse including IV drug abuse who was hospitalized at outside institution in [place] for pneumonia. Patient left AGAINST MEDICAL ADVICE and presented for her current hospitalization for hypoxia including difficulty with breathing. Diagnostic studies confirmed pneumonia. Patient remains in the ICU on mechanical ventilation, sedation and paralyzed. She still has chest tubes in place. She is status post tracheostomy and PEG tube placement on 04/11/2020. Afebrile. Covid negative WBC 16.9 Patient is being evaluated by [employer] CODE STATUS changed to DO NOT RESUSCITATE PHYSICAL EXAM: VITAL SIGNS: Reviewed. GENERAL: Well-developed in no acute distress. HEENT: No sclera icterus. Extraocular movements grossly intact. Moist buccal mucosa. Head is atraumatic, normocephalic. Tracheostomy site is clean ABDOMEN: Soft. Nondistended. Nontender. PEG tube site clean dry and intact NEUROLOGIC: Depressed due to sedation ASSESSMENT: 1. Acute hypoxic respiratory failure status post tracheostomy 2. Moderate protein calorie malnutrition status post PEG tube placement 3. Bilateral pneumothoraces 4. IV drug abuse methamphetamine abuse PLAN: -Patient being evaluated by [facility] [employer] [employer] [facility] note has been reviewed by physician. Signing provider agrees with the documented findings, assessment, and plan of care. Objective - Vital Signs Vital signs: Vital Signs Temp 98.5 F 04/18/20 04:00 Pulse 106 H 04/18/20 07:00 Resp 32 H 04/18/20 07:00 BP 105/66 04/17/20 19:00 Pulse Ox 100 04/18/20 07:00 Intake & Output 04/17/20 04/18/20 04/18/20 18:59 06:59 18:59 Intake Total 2129.974 6712.072 203 Output Total 2975 1790 150 Balance -1045.961 -24.928 53 Intake: IV 1286 1236 103 Cefepime 2 gm In Sodium 100 Chloride 0.9% 100 ml @ 25 mls/hr IVPB Q12HR [facility] Rx #:[id number] Dextrose 5% in Water 1, 1150 1200 100 000 ml @ 100 mls/hr IV . Q10H [facility] Rx#:[id number] Pressure bag 36 36 3 Intake, IV Titration 643.039 529.072 100 Amount Cisatracurium 200 mg In 196.763 156.42 Sodium Chloride 0.9% 180 ml @ 5 MCG/KG/MIN 14.85 mls/hr IV .[id number] [facility] Rx #:[id number] Norepinephrine 8 mg In 0 Sodium Chloride 0.9% 250 ml @ 0.05 MCG/KG/MIN 4. 789 mls/hr IV .Q24H [facility] Rx#:[id number] fentaNYL (PF) 2,500 mcg 172.59 301.62 In Sodium Chloride 0.9% 200 ml @ Per Protocol IV .Q0M [facility] Rx#:[id number] propofoL 1,000 mg In 273.686 71.032 100 Empty Bag 1 bag @ Titrate IV .Q0M [facility] Rx#: [id number] Output: Urine 2975 1790 150 Other: Voiding Method Indwelling Catheter Indwelling Catheter ABP, PAP, CO, CI - Last Documented Arterial Blood Pressure 98/60 - Labs CBC & Chem 7: 04/18/20 05:30 04/18/20 05:30 Labs: Abnormal Lab Results - Last 24 Hours (Table) 04/17/20 04/17/20 04/17/20 Range/Units 12:32 12:32 12:32 WBC 16.9 H (3.8-10.6) k/uL RBC (3.80-5.40) m/uL Hgb 9.3 L (11.4-16.0) gm/dL Hct 30.3 L (34.0-46.0) % MCV 76.5 L (80.0-100.0) fL MCH 23.5 L (25.0-35.0) pg MCHC 30.7 L (31.0-37.0) g/dL RDW 18.0 H (11.5-15.5) % Plt Count (150-450) k/uL Neutrophils # 14.1 H (1.3-7.7) k/uL APTT 20.7 L (22.0-30.0) sec ABG pCO2 (35-45) mmHg ABG pO2 (83-108) mmHg ABG HCO3 (21-25) mmol/L ABG Total CO2 (19-24) mmol/L ABG O2 Saturation (94-97) % Sodium 131 L (137-145) mmol/L Chloride 89 L (98-107) mmol/L Carbon Dioxide 48 H* (22-30) mmol/L BUN 19 H (7-17) mg/dL Creatinine 0.39 L (0.52-1.04) mg/dL Glucose (74-99) mg/dL Calcium 8.3 L (8.4-10.2) mg/dL Ionized Calcium Barbara (4.5-5.3) mg/dL Magnesium (1.6-2.3) mg/dL AST (14-36) U/L ALT 35 H (4-34) U/L Total Protein 5.0 L (6.3-8.2) g/dL Albumin 2.5 L (3.5-5.0) g/dL Urine Appearance (Clear) Urine Protein (Negative) Urine Blood (Negative) Ur Leukocyte Esterase (Negative) Urine RBC (0-5) /hpf Urine WBC (0-5) /hpf Urine WBC Clumps (None) /hpf Urine Bacteria (None) /hpf Urine Mucus (None) /hpf Urine Yeast (Budding) (None) /hpf 04/17/20 04/17/20 04/17/20 Range/Units 18:10 20:45 20:45 WBC 17.4 H (3.8-10.6) k/uL RBC (3.80-5.40) m/uL Hgb 9.2 L (11.4-16.0) gm/dL Hct 29.9 L (34.0-46.0) % MCV 75.5 L (80.0-100.0) fL MCH 23.4 L (25.0-35.0) pg MCHC 30.9 L (31.0-37.0) g/dL RDW 18.0 H (11.5-15.5) % Plt Count (150-450) k/uL Neutrophils # 15.0 H (1.3-7.7) k/uL APTT 21.1 L (22.0-30.0) sec ABG pCO2 70 H (35-45) mmHg ABG pO2 111 H (83-108) mmHg ABG HCO3 45 H* (21-25) mmol/L ABG Total CO2 47 H (19-24) mmol/L ABG O2 Saturation 99.3 H (94-97) % Sodium (137-145) mmol/L Chloride (98-107) mmol/L Carbon Dioxide (22-30) mmol/L BUN (7-17) mg/dL Creatinine (0.52-1.04) mg/dL Glucose (74-99) mg/dL Calcium (8.4-10.2) mg/dL Ionized Calcium Barbara (4.5-5.3) mg/dL Magnesium (1.6-2.3) mg/dL AST (14-36) U/L ALT (4-34) U/L Total Protein (6.3-8.2) g/dL Albumin (3.5-5.0) g/dL Urine Appearance (Clear) Urine Protein (Negative) Urine Blood (Negative) Ur Leukocyte Esterase (Negative) Urine RBC (0-5) /hpf Urine WBC (0-5) /hpf Urine WBC Clumps (None) /hpf Urine Bacteria (None) /hpf Urine Mucus (None) /hpf Urine Yeast (Budding) (None) /hpf 04/17/20 04/17/20 04/18/20 Range/Units 20:45 20:45 05:07 WBC (3.8-10.6) k/uL RBC (3.80-5.40) m/uL Hgb (11.4-16.0) gm/dL Hct (34.0-46.0) % MCV (80.0-100.0) fL MCH (25.0-35.0) pg MCHC (31.0-37.0) g/dL RDW (11.5-15.5) % Plt Count (150-450) k/uL Neutrophils # (1.3-7.7) k/uL APTT (22.0-30.0) sec ABG pCO2 82 H* (35-45) mmHg ABG pO2 (83-108) mmHg ABG HCO3 47 H* (21-25) mmol/L ABG Total CO2 50 H (19-24) mmol/L ABG O2 Saturation 98.3 H (94-97) % Sodium 133 L (137-145) mmol/L Chloride 89 L (98-107) mmol/L Carbon Dioxide 45 H* (22-30) mmol/L BUN (7-17) mg/dL Creatinine 0.34 L (0.52-1.04) mg/dL Glucose 104 H (74-99) mg/dL Calcium 7.9 L (8.4-10.2) mg/dL Ionized Calcium Barbara (4.5-5.3) mg/dL Magnesium 1.5 L (1.6-2.3) mg/dL AST 44 H (14-36) U/L ALT 41 H (4-34) U/L Total Protein 4.7 L (6.3-8.2) g/dL Albumin 2.3 L (3.5-5.0) g/dL Urine Appearance Cloudy H (Clear) Urine Protein 1+ H (Negative) Urine Blood Large H (Negative) Ur Leukocyte Esterase Large H (Negative) Urine RBC 52 H (0-5) /hpf Urine WBC 19 H (0-5) /hpf Urine WBC Clumps (None) /hpf Urine Bacteria (None) /hpf Urine Mucus (None) /hpf Urine Yeast (Budding) Rare H (None) /hpf 04/18/20 04/18/20 04/18/20 Range/Units 05:30 05:30 05:30 WBC 16.9 H (3.8-10.6) k/uL RBC 3.78 L (3.80-5.40) m/uL Hgb 9.0 L (11.4-16.0) gm/dL Hct 28.8 L (34.0-46.0) % MCV 76.1 L (80.0-100.0) fL MCH 23.7 L (25.0-35.0) pg MCHC (31.0-37.0) g/dL RDW 18.2 H (11.5-15.5) % Plt Count 135 L (150-450) k/uL Neutrophils # 14.8 H (1.3-7.7) k/uL APTT (22.0-30.0) sec ABG pCO2 (35-45) mmHg ABG pO2 (83-108) mmHg ABG HCO3 (21-25) mmol/L ABG Total CO2 (19-24) mmol/L ABG O2 Saturation (94-97) % Sodium 133 L (137-145) mmol/L Chloride 88 L (98-107) mmol/L Carbon Dioxide 45 H* (22-30) mmol/L BUN (7-17) mg/dL Creatinine 0.36 L (0.52-1.04) mg/dL Glucose 135 H (74-99) mg/dL Calcium 7.7 L (8.4-10.2) mg/dL Ionized Calcium Barbara 4.3 L (4.5-5.3) mg/dL Magnesium (1.6-2.3) mg/dL AST 44 H (14-36) U/L ALT 48 H (4-34) U/L Total Protein 4.7 L (6.3-8.2) g/dL Albumin 2.3 L (3.5-5.0) g/dL Urine Appearance (Clear) Urine Protein (Negative) Urine Blood (Negative) Ur Leukocyte Esterase (Negative) Urine RBC (0-5) /hpf Urine WBC (0-5) /hpf Urine WBC Clumps (None) /hpf Urine Bacteria (None) /hpf Urine Mucus (None) /hpf Urine Yeast (Budding) (None) /hpf 04/18/20 04/18/20 Range/Units 05:30 06:00 WBC (3.8-10.6) k/uL RBC (3.80-5.40) m/uL Hgb (11.4-16.0) gm/dL Hct (34.0-46.0) % MCV (80.0-100.0) fL MCH (25.0-35.0) pg MCHC (31.0-37.0) g/dL RDW (11.5-15.5) % Plt Count (150-450) k/uL Neutrophils # (1.3-7.7) k/uL APTT 21.8 L (22.0-30.0) sec ABG pCO2 (35-45) mmHg ABG pO2 (83-108) mmHg ABG HCO3 (21-25) mmol/L ABG Total CO2 (19-24) mmol/L ABG O2 Saturation (94-97) % Sodium (137-145) mmol/L Chloride (98-107) mmol/L Carbon Dioxide (22-30) mmol/L BUN (7-17) mg/dL Creatinine (0.52-1.04) mg/dL Glucose (74-99) mg/dL Calcium (8.4-10.2) mg/dL Ionized Calcium Barbara (4.5-5.3) mg/dL Magnesium (1.6-2.3) mg/dL AST (14-36) U/L ALT (4-34) U/L Total Protein (6.3-8.2) g/dL Albumin (3.5-5.0) g/dL Urine Appearance Turbid H (Clear) Urine Protein 1+ H (Negative) Urine Blood Moderate H (Negative) Ur Leukocyte Esterase Large H (Negative) Urine RBC >182 H (0-5) /hpf Urine WBC >182 H (0-5) /hpf Urine WBC Clumps Many H (None) /hpf Urine Bacteria Occasional H (None) /hpf Urine Mucus Few H (None) /hpf Urine Yeast (Budding) Many H (None) /hpf Microbiology - Last 24 Hours (Table) 04/13/20 18:41 Blood Culture - Preliminary Blood No Growth after 96 hours 04/13/20 19:01 Blood Culture - Preliminary Blood No Growth after 96 hours 04/16/20 11:58 Catheter Tip Culture - Preliminary Catheter Tip
--- NOTE | 2020-04-18 11:01 | CONS ---
CONSULTATION DATE OF CONSULTATION: 04/13/20 I have seen, examined, and agree with the midlevel's findings. MMODL / IJN: [id number] /
[2020-04-18 12:39] LABS: Glucose,Whole Blood 119 mg/dL (75-99)
[2020-04-18 12:55] LABS: Anisocytosis Slight; Basophils % (A) 0 %; Eosinophils # (A) 0.2 k/uL (0-0.7); Eosinophils % (A) 1 %; HCT 27.4 % (34.0-46.0); HGB 8.5 gm/dL (11.4-16.0); Hypochromasia Marked; Lymphocytes # (A) 0.9 k/uL (1.0-4.8); Lymphocytes % (A) 8 %; MCH 23.7 pg (25.0-35.0); MCHC 31.2 g/dL (31.0-37.0); Mean Platelet Volume 8.9; Microcytosis Slight; Monocytes # (A) 0.4 k/uL (0-1.0); Monocytes % (A) 3 %; Neutrophils # (A) 10.8 k/uL (1.3-7.7); Neutrophils % (A) 88 %; Platelet Count 131 k/uL (150-450); Poikilocytosis Slight; RDW 18.5 % (11.5-15.5); WBC 12.3 k/uL (3.8-10.6)
[2020-04-18 13:02] LABS: Ionized Calcium 4.3 mg/dL (4.5-5.3)
[2020-04-18 13:09] LABS: ALT 47 U/L (4-34); AST 49 U/L (14-36); African American GFR (CKD) >90 (>60 ml/min/1.73 sqM); Albumin 2.2 g/dL (3.5-5.0); Alkaline Phosphatase 63 U/L (38-126); Amylase 35 U/L (30-110); Blood Urea Nitrogen 10 mg/dL (7-17); Calcium 7.2 mg/dL (8.4-10.2); Chloride 89 mmol/L (98-107); Glucose 119 mg/dL (74-99); Lipase 45 U/L (23-300); Magnesium 1.9 mg/dL (1.6-2.3); Non-African American GFR(CKD) >90 (>60 ml/min/1.73 sqM); Phosphorus 2.5 mg/dL (2.5-4.5); Potassium 3.6 mmol/L (3.5-5.1); Sodium 133 mmol/L (137-145); Total Bilirubin 0.5 mg/dL (0.2-1.3); Total Protein 4.4 g/dL (6.3-8.2)
[2020-04-18 13:15] LABS: INR 0.9 (<1.2); Partial Thromboplastin Time 22.1 sec (22.0-30.0); Prothrombin Time 9.5 sec (9.0-12.0)
[2020-04-18 13:16] LABS: Anion Gap -3 mmol/L
[2020-04-18 13:38] LABS: Carbon Dioxide 47 mmol/L (22-30)
[2020-04-18] MEDS ORDERED: Phosphorus Replacement Protoco 1 EACH MISC MISCELLANE PRN (16:29)
[2020-04-18] MEDS: POTASSIUM CHLORIDE 20 MEQ in WATER FOR INJECTION 1 100ML.BAG IVPB SCH ×2 (17:00→19:12)
[2020-04-18 17:17] LABS: Appearance,Urine Cloudy (Clear); Bacteria,Urine Occasional /hpf; Bilirubin,Urine Negative (Negative); Blood,Urine Trace (Negative); Budding Yeast,Urine Many /hpf; Color,Urine Light Yellow; Glucose,Urine (UA) Negative (Negative); Hyaline Casts,Urine 4 /lpf (0-2); Ketones,Urine Negative (Negative); Leukocyte Esterase,Urine Large (Negative); Mucus,Urine Rare /hpf; Nitrite,Urine Negative (Negative); PH, Urine 6.5 (5.0-8.0); Protein,Urine Trace (Negative); RBC,Urine 10 /hpf (0-5); Urobilinogen,Urine <2.0 mg/dL (<2.0); WBC,Urine 37 /hpf (0-5)
[2020-04-18] MEDS: DEXTROSE 5%-0.9% NACL 1,000 ML IV SCH (18:27)
--- NOTE | 2020-04-18 18:55 | P.PN ---
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 Patient does have history of IV drug abuse and stopped using approximately 2 weeks ago. Patient was seen at outside hospital in [place] for difficulty in breathing. Patient left AGAINST MEDICAL ADVICE. Patient came to [place] to see her family and has been having worsening symptoms again with cough and dyspnea. Chest x-ray showed diffuse bilateral pleural parenchymal changes.Coronavirus PCR and influenza A and B negative.CT angiogram showed no evidence of pulmonary embolism. Patient is status post bronchoscopy with bronchial lavage on 04/04. Patient eventually need intubation and placed on mechanical ventilation for worsening respiratory failure. Her hospital course was complicated by right pneumothorax and chest tube was placed by surgery team. Today she developed left-sided pneumothorax with another chest tube was placed. Patient remains on broad-spectrum antibiotics with cefepime , she was on IV vancomycin which is a stopped now. Also she is on small doses of IV Lasix 20 mg daily and salmeterol 60 mg. Surgery team were consulted for PEG tube and tracheostomy placement 04/10/2020 Patient remains in the ICU for COPD and pneumonia, his currently on cefepime and IV Solu-Medrol. He is intubated on mechanical ventilation was managed closely by pulmonary/critical care team. As per the pulmonary team patient is doing better today. His hospital course is complicated by bilateral pneumothoraces status post bilateral chest tube. Also patient is undergoing PEG tube and tracheostomy placement Also patient is still tachycardic and tachypneic. Also patient is on Lasix 20 mg twice daily, was once daily yesterday 04/11/2020 Patient remains in the ICU on mechanical ventilation and looks patient is doing better with her oxygenation and depressed ventilation with pulmonary/critical care team followed closely. She still has bilateral chest tubes for bilateral pneumothoraces Patient underwent PEG tube placement and tracheostomy placement by surgery team Her sodium was trending up to 152, D5 W was started and Lasix was stopped. 04/12/2020 Patient remains in the ICU, on mechanical ventilation with pulmonary/critical care team on the case. Patient was tachycardic and tachypneic and she had to be placed back on the buttocks however generally there is normal change in her clinical condition. She still needs bilateral chest tubes for bilateral pneumothoraces. She status post PEG tube and tracheostomy by surgery team She remains on cefepime Solu-Medrol 03/13/2020 Patient remains in the ICU intubated and sedated, she is on mechanical ventilation, she status post PEG tube placement and tracheostomy. No much progress in her condition. Cardiothoracic surgery evaluated the patient for her chest tube management. She still have air leak on the right side. No surgical intervention further recommendation and to continue suction on blood pressure Patient remains on cefepime for her bilateral airway disease. Her hypernatremia is improved with D5W and currently she is on normal saline at 100 mL/h and sodium level is 140. Also she is on Solu-Medrol for her severe asthma. Pulmon elier/critical care team on the case. 04/14/2020 Patient remains in the ICU, not making much progress, she still intubated and on mechanical ventilation. She's been followed by several consult of [facility] pulmonary/critical care team, duty engineer, cardiothoracic surgery, infectious disease and Gen. surgery She remains on bilateral chest tube She remains on cefepime per ID recommendation She is also on Solu-Medrol 60 mg D5W was started. Sodium is 150. Prognosis remains guarded 04/15/2020 Patient remains in the ICU intubated and sedated, she still with bilateral thoracocentesis. Pulmonary/critical care on the team department to give 1 unit of blood transfusion. And patient continues with antral feeding.Patient continued on D5W for hypernatremia with close monitoring of sodium level. Car diothoracic surgery team were consulted and they recommended to continue with the conservative management for her chest tubes. She really did not make any progress regarding her healing. Prognosis remains very guarded 04/16/2020 When I saw the patient earlier in the morning she was still on mechanical ventilation, because of that patient cannot provide information as per bedside nerve patient remains the same with no much improvement, pulmonary/critical care team are planning to replace her. She was still with IV antibiotics and steroids. She was still has an bilateral thoracocentesis and surgical team on the case with close monitoring. She still getting feeding through the tube. Prognosis is very guarded 04/17/2020 Family decided for the patient to go for organ donation (DCD) donation post cardiac . I talked to the staff for donation organ and they recommended that the patient to continue with the same treatment of antibiotic, mechanical ventilation and all other measures to keep her organ Vital, DCD staff they wanted to do a CT of the abdomen , pelvis and chest. Also echocardiogram to see if the patient is eligible for donation back in and they going to investigate this possibility and make decision about it Medical team will keep following the patient and provide the medical care while the DCD decided about the organ donation. They have concerned that patient may had leukemia and they asked me to get some information for them. I discussed the case with Dr. Simmons reviews the previous records and their office, it looks like the patient was diagnosed with ALL in 2006 however she got treatment and she was admission by 2014 wound was checked in the office again. So it has been [address] Simmons thinks the patient does not have an active disease currently especially in view of her CBC results. 04/18/2020 Patient remains on mechanical ventilations with Doppler/critical care team following, also she has bilateral chest tubes. Patient did not make much progress in her clinical status and the family decided organ donation versus comfort care measures. Patient cannot provide information. Discussed with bed side nurse. Patient is going for surgery from tomorrow for extubation by the pulmonary/critical care acute and to be followed later by organ donation procedure versus comfort care measures Review of systems N/a Active Medications Generic Name Dose Route Start Last Admin Trade Name Freq PRN Reason Stop Dose Admin Artificial Tears 1 drops 04/12/20 04:00 04/18/20 18:26 Artificial Tears-Hypromellose Drops 15 Ml Btl BOTH EYES Not Given Q4H C[facility]AN Atropine Sulfate 2 drops 04/16/20 17:20 Atropine Ophth Soln 1% 5ml Btl SUBLINGUAL Q4HR PRN Excess Secretions Fentanyl Citrate 2,500 mcg/ 250 mls @ 0 mls/hr 04/09/20 15:00 04/18/20 01:15 Sodium Chloride IV 2 mcg/kg/hr .Q0M CRISTHIAN 9.9 mls/hr Titration Protocol Per Protocol Cisatracurium Besylate 200 mg/ 200 mls @ 14.85 mls/hr 04/16/20 19:15 04/18/20 17:00 Sodium Chloride IV 5 mcg/kg/min .[id number] CRIST[facility]AN 14.85 mls/hr Administration Protocol 5 MCG/KG/MIN Cefepime HCl 2 gm/ Sodium 100 mls @ 25 mls/hr 04/17/20 09:00 04/18/20 09:19 Chloride IVPB 25 mls/hr Q12HR C[facility]ST[facility]AN Administration Norepinephrine Bitartrate 8 mg 258 mls @ 4.789 mls/hr 04/18/20 07:45 04/18/20 11:45 / Sodium Chloride IV 0 mcg/kg/min .Q24H CRISTHIAN 0 mls/hr Titration Protocol 0.05 MCG/KG/MIN Propofol 1,000 mg/ IV Solution 100 mls @ 0 mls/hr 04/18/20 07:00 IV .Q0M C[facility]ST[facility] Protocol Titrate Potassium Phosphate 10 mmol/ 103.3333 mls @ 50 mls/hr 04/18/20 21:00 Sodium Chloride IV 04/19/20 00:59 Q2H CRIST[facility]AN Potassium Chloride 20 meq/ IV 100 mls @ 50 mls/hr 04/18/20 17:00 04/18/20 17:00 Solution IVPB 04/18/20 20:59 50 mls/hr Q2H C[facility] Administration Protocol Dextrose/Sodium Chloride 1,000 mls @ 100 mls/hr 04/18/20 18:15 04/18/20 18:27 Dextrose 5%-Ns Iv Soln IV 100 mls/hr .Q10H [facility] Administration Miscellaneous Information 1 each 04/17/20 07:28 Potassium Replacement Protocol 1 Each Misc MISCELLANE DAILY PRN Per Protocol Protocol Miscellaneous Information 1 each 04/17/20 23:15 Magnesium Replacement Protocol 1 Each Misc MISCELLANE DAILY PRN Per Protocol Protocol Miscellaneous Information 1 each 04/18/20 16:29 Phosphorus Replacement Protoco 1 Each Misc MISCELLANE DAILY PRN Per Protocol Protocol Morphine Sulfate 2 mg 04/16/20 17:20 Morphine Sulfate 2 Mg/Ml Syringe IV Q15M PRN Breakthrough Pain Morphine Sulfate 4 mg 04/16/20 17:20 04/16/20 18:50 Morphine Sulfate 4 Mg/Ml Syringe IV 4 mg Q15M PRN Administration Breakthrough Pain Naloxone HCl 0.2 mg 04/16/20 19:11 Naloxone 0.4 Mg/Ml 1 Ml Vial IV Q2M PRN Opioid Reversal Ondansetron HCl 4 mg 04/03/20 15:08 04/03/20 16:14 Ondansetron 4 Mg/2 Ml Vial IVP 4 mg Q6HR PRN Administration Nausea And Vomiting Objective - Vital Signs Vital signs: Vital Signs Temp 98.2 F 04/18/20 16:00 Pulse 108 H 04/18/20 16:30 Resp 32 H 04/18/20 16:30 BP 114/76 04/18/20 12:00 Pulse Ox 98 04/18/20 16:30 Intake & Output 04/17/20 04/18/20 04/18/20 18:59 06:59 18:59 Intake Total 1173.365 2188.072 1355.097 Output Total 2975 1790 1275 Balance -1045.961 -24.928 80.097 Intake: IV 1286 1236 1027 Cefepime 2 gm In Sodium 100 Chloride 0.9% 100 ml @ 25 mls/hr IVPB Q12HR [facility] Rx #:[id number] Dextrose 5% in Water 1, 1150 1200 900 000 ml @ 100 mls/hr IV . Q10H [facility] Rx#:[id number] Potassium Chloride 20 meq 100 In Water For Injection 1 100ml.bag @ 50 mls/hr IVPB ONCE [facility] Rx#: [id number] Pressure bag 36 36 27 Intake, IV Titration 643.039 529.072 328.097 Amount Cisatracurium 200 mg In 196.763 156.42 200 Sodium Chloride 0.9% 180 ml @ 5 MCG/KG/MIN 14.85 mls/hr IV .[id number] [facility] Rx #:[id number] Norepinephrine 8 mg In 28.097 Sodium Chloride 0.9% 250 ml @ 0.05 MCG/KG/MIN 4. 789 mls/hr IV .Q24H [facility] Rx#:[id number] fentaNYL (PF) 2,500 mcg 172.59 301.62 In Sodium Chloride 0.9% 200 ml @ Per Protocol IV .Q0M [facility] Rx#:[id number] propofoL 1,000 mg In 273.686 71.032 100 Empty Bag 1 bag @ Titrate IV .Q0M [facility] Rx#: [id number] Output: Urine 2975 1790 1275 Other: Voiding Method Indwelling Catheter Indwelling Catheter Indwelling Catheter ABP, PAP, CO, CI - Last Documented Arterial Blood Pressure 131/67 - Exam -GENERAL: The patient is intubated and sedated HEENT: Pupils are round and equally reacting to light. EOMI. No scleral icterus. No conjunctival pallor. Normocephalic, atraumatic. No pharyngeal erythema. No thyromegaly. CARDIOVASCULAR: S1 and S2 present. No murmurs, rubs, or gallops. -PULMONARY: Chest is clear to auscultation, no wheezing or crackles. Bilateral chest tube placement ABDOMEN: Soft, nontender, nondistended, normoactive bowel sounds. No palpable organomegaly. MUSCULOSKELETAL: No joint swelling or deformity. EXTREMITIES: No cyanosis, clubbing, or pedal edema. NEUROLOGICAL: Gross neurological examination did not reveal any focal deficits. SKIN: No rashes. no petechiae. - Labs CBC & Chem 7: 04/18/20 12:33 04/18/20 12:33 Labs: Abnormal Lab Results - Last 24 Hours (Table) 04/17/20 04/17/20 04/17/20 Range/Units 20:45 20:45 20:45 WBC 17.4 H (3.8-10.6) k/uL RBC (3.80-5.40) m/uL Hgb 9.2 L (11.4-16.0) gm/dL Hct 29.9 L (34.0-46.0) % MCV 75.5 L (80.0-100.0) fL MCH 23.4 L (25.0-35.0) pg MCHC 30.9 L (31.0-37.0) g/dL RDW 18.0 H (11.5-15.5) % Plt Count (150-450) k/uL Neutrophils # 15.0 H (1.3-7.7) k/uL Lymphocytes # (1.0-4.8) k/uL APTT 21.1 L (22.0-30.0) sec ABG pCO2 (35-45) mmHg ABG HCO3 (21-25) mmol/L ABG Total CO2 (19-24) mmol/L ABG O2 Saturation (94-97) % Sodium 133 L (137-145) mmol/L Chloride 89 L (98-107) mmol/L Carbon Dioxide 45 H* (22-30) mmol/L Creatinine 0.34 L (0.52-1.04) mg/dL Glucose 104 H (74-99) mg/dL POC Glucose (mg/dL) (75-99) mg/dL Calcium 7.9 L (8.4-10.2) mg/dL Ionized Calcium Barbara (4.5-5.3) mg/dL Magnesium 1.5 L (1.6-2.3) mg/dL AST 44 H (14-36) U/L ALT 41 H (4-34) U/L Total Protein 4.7 L (6.3-8.2) g/dL Albumin 2.3 L (3.5-5.0) g/dL Urine Appearance (Clear) Urine Protein (Negative) Urine Blood (Negative) Ur Leukocyte Esterase (Negative) Urine RBC (0-5) /hpf Urine WBC (0-5) /hpf Urine WBC Clumps (None) /hpf Urine Bacteria (None) /hpf Hyaline Casts (0-2) /lpf Urine Mucus (None) /hpf Urine Yeast (Budding) (None) /hpf 04/17/20 04/18/20 04/18/20 Range/Units 20:45 05:07 05:30 WBC 16.9 H (3.8-10.6) k/uL RBC 3.78 L (3.80-5.40) m/uL Hgb 9.0 L (11.4-16.0) gm/dL Hct 28.8 L (34.0-46.0) % MCV 76.1 L (80.0-100.0) fL MCH 23.7 L (25.0-35.0) pg MCHC (31.0-37.0) g/dL RDW 18.2 H (11.5-15.5) % Plt Count 135 L (150-450) k/uL Neutrophils # 14.8 H (1.3-7.7) k/uL Lymphocytes # (1.0-4.8) k/uL APTT (22.0-30.0) sec ABG pCO2 82 H* (35-45) mmHg ABG HCO3 47 H* (21-25) mmol/L ABG Total CO2 50 H (19-24) mmol/L ABG O2 Saturation 98.3 H (94-97) % Sodium (137-145) mmol/L Chloride (98-107) mmol/L Carbon Dioxide (22-30) mmol/L Creatinine (0.52-1.04) mg/dL Glucose (74-99) mg/dL POC Glucose (mg/dL) (75-99) mg/dL Calcium (8.4-10.2) mg/dL Ionized Calcium Barbara (4.5-5.3) mg/dL Magnesium (1.6-2.3) mg/dL AST (14-36) U/L ALT (4-34) U/L Total Protein (6.3-8.2) g/dL Albumin (3.5-5.0) g/dL Urine Appearance Cloudy H (Clear) Urine Protein 1+ H (Negative) Urine Blood Large H (Negative) Ur Leukocyte Esterase Large H (Negative) Urine RBC 52 H (0-5) /hpf Urine WBC 19 H (0-5) /hpf Urine WBC Clumps (None) /hpf Urine Bacteria (None) /hpf Hyaline Casts (0-2) /lpf Urine Mucus (None) /hpf Urine Yeast (Budding) Rare H (None) /hpf 04/18/20 04/18/20 04/18/20 Range/Units 05:30 05:30 05:30 WBC (3.8-10.6) k/uL RBC (3.80-5.40) m/uL Hgb (11.4-16.0) gm/dL Hct (34.0-46.0) % MCV (80.0-100.0) fL MCH (25.0-35.0) pg MCHC (31.0-37.0) g/dL RDW (11.5-15.5) % Plt Count (150-450) k/uL Neutrophils # (1.3-7.7) k/uL Lymphocytes # (1.0-4.8) k/uL APTT 21.8 L (22.0-30.0) sec ABG pCO2 (35-45) mmHg ABG HCO3 (21-25) mmol/L ABG Total CO2 (19-24) mmol/L ABG O2 Saturation (94-97) % Sodium 133 L (137-145) mmol/L Chloride 88 L (98-107) mmol/L Carbon Dioxide 45 H* (22-30) mmol/L Creatinine 0.36 L (0.52-1.04) mg/dL Glucose 135 H (74-99) mg/dL POC Glucose (mg/dL) (75-99) mg/dL Calcium 7.7 L (8.4-10.2) mg/dL Ionized Calcium Barbara 4.3 L (4.5-5.3) mg/dL Magnesium (1.6-2.3) mg/dL AST 44 H (14-36) U/L ALT 48 H (4-34) U/L Total Protein 4.7 L (6.3-8.2) g/dL Albumin 2.3 L (3.5-5.0) g/dL Urine Appearance (Clear) Urine Protein (Negative) Urine Blood (Negative) Ur Leukocyte Esterase (Negative) Urine RBC (0-5) /hpf Urine WBC (0-5) /hpf Urine WBC Clumps (None) /hpf Urine Bacteria (None) /hpf Hyaline Casts (0-2) /lpf Urine Mucus (None) /hpf Urine Yeast (Budding) (None) /hpf 04/18/20 04/18/20 04/18/20 Range/Units 06:00 12:03 12:33 WBC 12.3 H (3.8-10.6) k/uL RBC 3.60 L (3.80-5.40) m/uL Hgb 8.5 L (11.4-16.0) gm/dL Hct 27.4 L (34.0-46.0) % MCV 76.0 L (80.0-100.0) fL MCH 23.7 L (25.0-35.0) pg MCHC (31.0-37.0) g/dL RDW 18.5 H (11.5-15.5) % Plt Count 131 L (150-450) k/uL Neutrophils # 10.8 H (1.3-7.7) k/uL Lymphocytes # 0.9 L (1.0-4.8) k/uL APTT (22.0-30.0) sec ABG pCO2 (35-45) mmHg ABG HCO3 (21-25) mmol/L ABG Total CO2 (19-24) mmol/L ABG O2 Saturation (94-97) % Sodium (137-145) mmol/L Chloride (98-107) mmol/L Carbon Dioxide (22-30) mmol/L Creatinine (0.52-1.04) mg/dL Glucose (74-99) mg/dL POC Glucose (mg/dL) (75-99) mg/dL Calcium (8.4-10.2) mg/dL Ionized Calcium Barbara (4.5-5.3) mg/dL Magnesium (1.6-2.3) mg/dL AST (14-36) U/L ALT (4-34) U/L Total Protein (6.3-8.2) g/dL Albumin (3.5-5.0) g/dL Urine Appearance Turbid H Cloudy H (Clear) Urine Protein 1+ H Trace H (Negative) Urine Blood Moderate H Trace H (Negative) Ur Leukocyte Esterase Large H Large H (Negative) Urine RBC >182 H 10 H (0-5) /hpf Urine WBC >182 H 37 H (0-5) /hpf Urine WBC Clumps Many H Few H (None) /hpf Urine Bacteria Occasional H Occasional H (None) /hpf Hyaline Casts 4 H (0-2) /lpf Urine Mucus Few H Rare H (None) /hpf Urine Yeast (Budding) Many H Many H (None) /hpf 04/18/20 04/18/20 Range/Units 12:33 12:38 WBC (3.8-10.6) k/uL RBC (3.80-5.40) m/uL Hgb (11.4-16.0) gm/dL Hct (34.0-46.0) % MCV (80.0-100.0) fL MCH (25.0-35.0) pg MCHC (31.0-37.0) g/dL RDW (11.5-15.5) % Plt Count (150-450) k/uL Neutrophils # (1.3-7.7) k/uL Lymphocytes # (1.0-4.8) k/uL APTT (22.0-30.0) sec ABG pCO2 (35-45) mmHg ABG HCO3 (21-25) mmol/L ABG Total CO2 (19-24) mmol/L ABG O2 Saturation (94-97) % Sodium 133 L (137-145) mmol/L Chloride 89 L (98-107) mmol/L Carbon Dioxide 47 H* (22-30) mmol/L Creatinine 0.23 L (0.52-1.04) mg/dL Glucose 119 H (74-99) mg/dL POC Glucose (mg/dL) 119 H (75-99) mg/dL Calcium 7.2 L (8.4-10.2) mg/dL Ionized Calcium Barbara 4.3 L (4.5-5.3) mg/dL Magnesium (1.6-2.3) mg/dL AST 49 H (14-36) U/L ALT 47 H (4-34) U/L Total Protein 4.4 L (6.3-8.2) g/dL Albumin 2.2 L (3.5-5.0) g/dL Urine Appearance (Clear) Urine Protein (Negative) Urine Blood (Negative) Ur Leukocyte Esterase (Negative) Urine RBC (0-5) /hpf Urine WBC (0-5) /hpf Urine WBC Clumps (None) /hpf Urine Bacteria (None) /hpf Hyaline Casts (0-2) /lpf Urine Mucus (None) /hpf Urine Yeast (Budding) (None) /hpf Microbiology - Last 24 Hours (Table) 04/16/20 11:58 Catheter Tip Culture - Final Catheter Tip 04/16/20 10:45 Gram Stain - Final Neck Wound Culture - Final Beta Hemolytic Streptococcus F 04/13/20 18:41 Blood Culture - Preliminary Blood No Growth after 96 hours 04/13/20 19:01 Blood Culture - Preliminary Blood No Growth after 96 hours Assessment and Plan Assessment: Bilateral patchy groundglass opacities Secondary to pneumonia. Patient possible ARDS. End stage and patient is being considered for comfort care by family Acute hypoxic respiratory failure secondary to pneumonia currently patient is on mechanical ventilator. Status post tracheostomy and PEG placement on 04/11 Bilateral pneumothorax. Status post bilateral chest tube placement. Acute asthma exacerbation hypernatremia Recent history of IV drug abuse, about 2 weeks prior to admission non-Compliance to therapy. The patient left AMA in [facility] History of ALL currently in remission. History of Anxiety Nicotine dependence, everyday smoker Plan: This is a 29 years old female who presents with bilateral pneumonia and possible ARDS and bilateral pneumothorax status post chest tube. Continue with antibiotic, continue with. Patient is considered for DCD donation or Comfort Care . Follow-up recommendation by pulmonary/critical care team R following the case closely, and surgery teams Labs and medication were reviewed.. Continue same treatment. Continue with symptomatic treatment. Resume home medication. Monitor lytes and vitals. DVT and GI prophylaxis. Further recommendationsas per clinical course of the patient DVT prophylaxis: Subcutaneous Lovenox GI Prophylaxis: Pepcid Prognosis is guarded
[2020-04-18 20:37] LABS: Anisocytosis Slight; Basophils % (A) 0 %; Eosinophils # (A) 0.1 k/uL (0-0.7); Eosinophils % (A) 1 %; HCT 29.6 % (34.0-46.0); HGB 8.7 gm/dL (11.4-16.0); Hypochromasia Marked; Lymphocytes % (A) 6 %; MCH 22.7 pg (25.0-35.0); MCHC 29.4 g/dL (31.0-37.0); MCV 77.2 fL (80.0-100.0); Microcytosis Slight; Monocytes # (A) 0.5 k/uL (0-1.0); Monocytes % (A) 3 %; Neutrophils # (A) 14.7 k/uL (1.3-7.7); Neutrophils % (A) 90 %; Platelet Count 144 k/uL (150-450); Poikilocytosis Slight; RBC 3.84 m/uL (3.80-5.40); RDW 18.4 % (11.5-15.5); WBC 16.5 k/uL (3.8-10.6)
[2020-04-18 20:45] LABS: INR 0.9 (<1.2); Partial Thromboplastin Time 23.5 sec (22.0-30.0); Prothrombin Time 9.8 sec (9.0-12.0)
[2020-04-18 20:46] LABS: Ionized Calcium 4.5 mg/dL (4.5-5.3)
[2020-04-18 20:54] LABS: ALT 53 U/L (4-34); AST 52 U/L (14-36); African American GFR (CKD) >90 (>60 ml/min/1.73 sqM); Albumin 2.3 g/dL (3.5-5.0); Alkaline Phosphatase 72 U/L (38-126); Amylase 36 U/L (30-110); Blood Urea Nitrogen 9 mg/dL (7-17); Calcium 7.8 mg/dL (8.4-10.2); Chloride 89 mmol/L (98-107); Glucose 135 mg/dL (74-99); Lipase 87 U/L (23-300); Magnesium 1.7 mg/dL (1.6-2.3); Non-African American GFR(CKD) >90 (>60 ml/min/1.73 sqM); Phosphorus 3.1 mg/dL (2.5-4.5); Potassium 4.8 mmol/L (3.5-5.1); Sodium 132 mmol/L (137-145); Total Bilirubin 0.4 mg/dL (0.2-1.3); Total Protein 4.8 g/dL (6.3-8.2)
[2020-04-18 21:18] LABS: Anion Gap -3 mmol/L; Carbon Dioxide 46 mmol/L (22-30)
[2020-04-18] MEDS: POTASSIUM PHOSPHATE 10 MMOL in SODIUM CHLORIDE 0.9% 100 ML IV SCH ×2 (21:47→23:24)
[2020-04-18] MEDS: fentaNYL (PF) 2,500 MCG in SODIUM CHLORIDE 0.9% 200 ML IV SCH (22:05)
--- NOTE | 2020-04-19 00:46 | PCN ---
PROCEDURE NOTE PROCEDURE PERFORMED: Left radial arterial line placement. PREOPERATIVE DIAGNOSIS: Pneumoniae, ARDS, sepsis. POSTOPERATIVE DIAGNOSIS: Pneumonia, ARDS, sepsis. ARTERIAL LINE PLACEMENT: Indications: Hemodynamic monitoring. A time-out was completed verifying correct patient, procedure, site, positioning, and implant(s) or special equipment if applicable. Primo's test was performed to ensure adequate perfusion. The patient's left wrist was prepped and draped in sterile fashion. 1% Lidocaine was used to anesthetize the area. An 18G Arrow arterial line was introduced into the left radial artery. The catheter was threaded over the guide wire and the needle was removed with appropriate pulsatile blood return. Blood loss was minimal. The catheter was then sutured in place to the skin and a sterile dressing applied. Perfusion to the extremity distal to the point of catheter insertion was checked and found to be adequate. The patient tolerated the procedure well and there were no complications. Procedure was tolerated very well, no immediate complications. Line was flushed, good waveform was noted, sutured in place and sterile dressing was applied by the nursing staff. MMODL / IJN: [id number] /
[2020-04-19] MEDS: ARTIFICIAL TEARS-HYPROMELLOSE DROPS 15 ML BTL BOTH EYES SCH ×3 (01:07→07:40)
[2020-04-19] MEDS: DEXTROSE 5%-0.9% NACL 1,000 ML IV SCH (04:03)
[2020-04-19 04:36] LABS: Anisocytosis Slight; Basophils % (A) 0 %; Eosinophils # (A) 0.1 k/uL (0-0.7); Eosinophils % (A) 1 %; HCT 24.8 % (34.0-46.0); HGB 7.8 gm/dL (11.4-16.0); Hypochromasia Marked; Lymphocytes # (A) 1.6 k/uL (1.0-4.8); Lymphocytes % (A) 11 %; MCH 23.7 pg (25.0-35.0); MCHC 31.5 g/dL (31.0-37.0); MCV 75.3 fL (80.0-100.0); Mean Platelet Volume 8.9; Microcytosis Moderate; Monocytes # (A) 0.4 k/uL (0-1.0); Monocytes % (A) 3 %; Neutrophils # (A) 12.4 k/uL (1.3-7.7); Neutrophils % (A) 84 %; Platelet Count 149 k/uL (150-450); Poikilocytosis Slight; RBC 3.29 m/uL (3.80-5.40); WBC 14.7 k/uL (3.8-10.6)
[2020-04-19 04:37] LABS: Ionized Calcium 4.3 mg/dL (4.5-5.3)
[2020-04-19 04:44] LABS: INR 0.9 (<1.2); Prothrombin Time 9.8 sec (9.0-12.0)
[2020-04-19 04:46] LABS: ALT 50 U/L (4-34); AST 43 U/L (14-36); African American GFR (CKD) >90 (>60 ml/min/1.73 sqM); Alkaline Phosphatase 60 U/L (38-126); Blood Urea Nitrogen 8 mg/dL (7-17); Calcium 7.6 mg/dL (8.4-10.2); Chloride 91 mmol/L (98-107); Glucose 114 mg/dL (74-99); Lipase 51 U/L (23-300); Magnesium 1.6 mg/dL (1.6-2.3); Non-African American GFR(CKD) >90 (>60 ml/min/1.73 sqM); Phosphorus 2.3 mg/dL (2.5-4.5); Sodium 133 mmol/L (137-145); Total Bilirubin 0.3 mg/dL (0.2-1.3); Total Protein 4.2 g/dL (6.3-8.2)
[2020-04-19 04:52] LABS: Anion Gap -3 mmol/L; Carbon Dioxide 45 mmol/L (22-30)
[2020-04-19] MEDS: CISATRACURIUM 200 MG in SODIUM CHLORIDE 0.9% 180 ML IV SCH (05:25)
[2020-04-19 05:55] LABS: ABG Base Excess 21.8 mmol/L; ABG PCO2 66 mmHg (35-45); ABG PH 7.45 (7.35-7.45); ABG PO2 122 mmHg (83-108); ABG TCO2 48 mmol/L (19-24); Allen Test Performed? Yes
[2020-04-19 05:59] LABS: ABG HCO3 46 mmol/L (21-25)
[2020-04-19] MEDS ORDERED: POTASSIUM PHOSPHATE 10 MMOL in SODIUM CHLORIDE 0.9% 250 ML IV ONE (06:30)
[2020-04-19] MEDS: MAGNESIUM SULFATE-D5W PMX 1 GM in DEXTROSE/WATER 1 100ML.BAG IVPB SCH ×2 (06:42→07:39)
[2020-04-19 06:52] LABS: Appearance,Urine Turbid (Clear); Bacteria,Urine Occasional /hpf; Bilirubin,Urine Negative (Negative); Blood,Urine Small (Negative); Budding Yeast,Urine Many /hpf; Color,Urine Yellow; Glucose,Urine (UA) Negative (Negative); Hyaline Casts,Urine 17 /lpf (0-2); Ketones,Urine Negative (Negative); Leukocyte Esterase,Urine Large (Negative); Mucus,Urine Moderate /hpf; Nitrite,Urine Negative (Negative); Protein,Urine Trace (Negative); RBC,Urine 85 /hpf (0-5); Specific Gravity,Urine 1.015 (1.001-1.035); Squamous Epithelial Cell,Urine 1 /hpf (0-4); Urobilinogen,Urine <2.0 mg/dL (<2.0); WBC,Urine >182 /hpf (0-5)
[2020-04-19] MEDS: CEFEPIME 2 GM in SODIUM CHLORIDE 0.9% 100 ML IVPB SCH (07:40)
--- NOTE | 2020-04-19 07:44 | XR ---
EXAMINATION TYPE: XR chest 1V portable DATE OF EXAM: 04/19/2020 Comparison: 04/18/2020 Clinical History: 29-year-old female Tube placement Findings: Tracheostomy cannula is in place. Left subclavian CVC tip in the lower right atrium. 2 right basilar chest tubes. One apically directed left-sided chest tube. No appreciable pneumothorax. Heart upper li mits of normal in size. Diffuse interstitial opacities persist. More confluent left upper lung opacit y similar to slightly increased. Impression: Bilateral chest tubes and diffuse patchy and interstitial infiltrates. There may be slight worsening in the left upper lobe. No appreciable pneumothorax.
[2020-04-19] MEDS: NOREPINEPHRINE 8 MG in SODIUM CHLORIDE 0.9% 250 ML IV SCH (08:03)
[2020-04-19] MEDS ORDERED: HEPARIN SODIUM,PORCINE 5,000 UNIT/ML 1 ML VIAL IV STA (08:27)
[2020-04-19] MEDS ORDERED: MORPHINE SULFATE 4 MG/ML SYRINGE IVP STA (08:41)
[2020-04-19] MEDS ORDERED: LORazepam 2 MG/ML INJ IV STA (09:05)
--- NOTE | 2020-04-19 10:15 | P.PN ---
Subjective Progress Note Date: 04/19/20 Principal diagnosis: Acute hypoxic respiratory failure secondary to bilateral pneumonia and bilateral pneumothoraces. Severe underlying COPD 04/04/2020 the patient is being seen for a follow-up. The patient is going to undergo bronchoscopy today. I was able to obtain records from the hospital as the [facility] and at that time the patient was hospitalized for bilat eral pneumonia. CAT scan of the chest findings were similar to the ones that he had he [place]. The patient underwent further investigation including alpha- 1 antitrypsin level came back within normal, cystic fibrosis mutation screen that came back negative, HIV screen that came back negative, fungal screen including Histoplasma urine antigen, cryptococcal serum antigen and Aspergillus antibodies and all of these were negative. For now, the patient is scheduled to undergo bronchoscopy and bronchial lavage. Echocardiogram showed no evidence of any valvular disease or vegetations. She is still short of breath and she has increased dyspnea cough chest tightness and wheezing. No significant sputum production. On 04/05/2020, the patient is in intensive care unit. Mother the patient underwent a bronchoscopy and bronchial lavage yesterday and the procedure was essentially uncomplicated. 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 At that point, the emergency team was called and the patient was evaluated twice. During the second evaluation, chest x-ray was done and the patient was found to have diffuse but the pulmonary infiltrates in addition to hypoxic respiratory failure. The patient was started on a BiPAP at a pressure of 12/5 with an FiO2 of 60% and the patient got transferred to the ICU. She was also given a dose of Lasix. She started producing adequate amount of urine o utput. Nevertheless, she continued to have agonal breathing, low tidal volume and increased tachypnea with impending signs of respiratory failure even while being on a BiPAP. At that point, I made a decision to intubate the patient in intensive care unit. The patient was intubated by #8 orotracheal tube. She was placed on a mechanical ventilator. A triple lumen catheter was established. An outlying catheter was also established. The post intubation blood gas showed a pH of 7.25 with a pCO2 of 87 pO2 of 386 and this was done on assist control mode at the rate of 20 with tidal volume of 350 and FiO2 of 100% with a PEEP of 5. FiO2 is down to 50%. The patient at this point in time is sedated with propofol and the patient is calm and comfortable. Fentanyl was also added to improve for sedation while being a mechanical ventilator. Results of the bronchioloalveolar lavage is still negative. No microbial growth. The patient remains on a combination of IV cefepime and vancomycin. The post intubation chest x-ray showed bilateral pleural thickening and bilateral airspace disease seen although somewhat improved compared to the earlier chest x-rays. ET tube was around 1 cm above the sandra. Blood work from this morning showed a hemoglobin of 7.2. White cell count of 15.8. Aggressive the blood work essentially within normal limits. On 04/06/2020, the patient remains intubated on a mechanical. On today's evaluation the patient is on propofol running at 50 g per KG per minute. The patient is also on fentanyl drip at 3 g per KG per minute. IV fluids at KVO and the patient is on levo fed at 0.1 mg per KG per minute. The patient remains on mechanical ventilator on assist control mode at the rate of 24 with a tidal volume loss was 75 with an FiO2 of 50% and PEEP of 5. Peak airway pressure 37. Plateau airway pressure is 35. Patient is receiving tube feed with vital high protein at the rate of 10 mL an hour and the patient will be advanced to goal. The bronchioloalveolar lavage that was done earlier came back negative for any microbial growth. A chest x-ray from today shows some improvement and by the pulmonary infiltrate that was established on yesterday's chest x-ray. The patient remains on a combination of cefepime and vancomycin. Lasix will be re started. No other significant events otherwise for now. She is requiring norepinephrine infusion for blood pressure control. Echocardiogram at shown a preserved LV function without any significant LV dysfunction. Triple lumen catheter has been established and have right femoral vein. She also has an arterial line catheter. I was concerned about elevated airway pressures in this patient. Unable to ventilate with a higher volumes as the patient's pressure will go significantly high. I switch this patient to a pressure control mode of ventilation. 04/07/2020, the patient is being seen for follow-up. The patient remains intubated on a mechanical ventilator. The patient is on assist control ventilation and on today's evaluation the patient is on a pressure control of 30 with a PEEP of 5 and FiO2 of 50% with a rate of 34. The blood gases from today showed a pH of 7.47 with a pCO2 of 69 a pO2 of 168 and a follow-up chest x-ray from today showed improvement in the bilateral pulmonary infiltrates. Nevertheless, there was a note of a right-sided pneumothorax. Based on this, a CAT scan of the chest was done to confirm the findings and the patient did have a right-sided pneumothorax there was moderate in size in addition to bilateral diffuse bilateral a disease and small bilateral pleural effusions. At that point, a 24-Macedonian chest tube was inserted in the right hemithorax and a follow- up chest x-ray is pending for now. The patient remains hemodynamically stable and there was no evidence of any tension due to this pneumothorax. I also did some ventilator changes. I dropped the pressure control down to 20 and dropped a respiratory rate down to 24 and drop the FiO2 down to 40%. A repeat blood gases was done and the repeat blood gases showed a pH of 7.37 with a pCO2 of 89 pO2 of 95. The patient's white cell count of 10.4 with hemoglobin of 7.2. The rest of the blood work and electrodes with a component of metabolic alkalosis with a serum bicarb of 50 and a sodium of 141. The patient remains on broad- spectrum antibiotics. Vancomycin was discontinued as the patient's bronchial alveolar lavage did not reveal any microbial growth and I'm going to keep this p atient only on cefepime for now. The patient remains sedated with a combination of fentanyl erythematous events per KG per minute and for prophylaxis for microvascular KG per minute. The patient is also being diuresis with Lasix at a dose of 20 mg IV push every 12 hours. The patient is on vital high protein at the rate of 30 mL an hour. 04/08/2020, the patient remains intubated on a mechanical ventilator. Unfortunately, she continues to have a small right-sided pneumothorax despite a chest tube insertion. The air leak from the right-sided chest tube is minimal at this point in time and output is minimal. The patient is extremely debilitated. 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 She has advanced COPD with chronic lung disease. She is cu rrently on a pressure control mode of ventilation with a pressure control of 20 with an FiO2 of 40% with a PEEP of 5 and the rate of 24. The blood gases showed a pH of 7.43 with a pCO2 of 84 and pO2 of 111. The peak airway pressure 33. The static airway pressure is 27. The patient remains sedated with propofol at the rate of 50 g per KG per minute and fentanyl is running at a rate of 3 g per KG per minute. Norepinephrine is running at 0.02 g per KG per minute. Cultures from the bronchioloalveolar lavage has been negative and the patient is still on cefepime as a broad-spectrum antibiotic coverage for now. She is being diuresed with IV Lasix at a dose of 20 mg IV push every 12 hours. The dose of Lasix will be tapered as the patient has been adequate fluid balance. The chest x-ray findings shows improvement and by the pulmonary infiltrates. There is however a stable loculated right-sided pneumothorax and the right-sided chest tube is in good location. ET tube is in good location. The patient was started on enteral feeding for nutritional support. I'm very much convinced that the patient would benefit from a PEG and trach as the patient has advanced lung disease and she is quite debilitated and malnourished at this young age. On a separate note, earlier this morning the patient went into a bout of an SVT with a heart rate of 160. The patient was given 2 doses of IV Rocephin, 6 mg and 12 mg without success. Her heart rate gradually is improving at this point in time and over the next few hours, the patient's heart rate dropped down to 112 Reevaluated today on 04/09/20, patient remains intubated and mechanically ventilated. She is on pressure control mode of mechanical ventilation, pressure control is set at 24, inspiratory time is 0.65 seconds patient is on 40% FiO2 and PEEP of 5. She was intubated on 04/05/20, she is on propofol at 50 mcg/kg/m, fentanyl at 3 mcg/kg/h, she is also on norepinephrine at 0.01 mcg/kg/m. IV fluid is at 20 mL per hour. Patient has a right femoral triple- lumen catheter. Right radial arterial line. Right-sided chest tube with air leak noted. And today she ended up with a left-sided chest tube for left-sided pneumothorax which was noted on the chest x-ray earlier today. Patient is on tube feeding vital Hb 53 mL/h and this is the goal is also on cefepime empirically. ABG today showed a pO2 of 148 pCO2 of 74 pH of 7.34. WBC count is 7.6 hemoglobin is 7.8. Electrolytes and renal profile are normal. Bicarb is 39. This morning chest x-ray showed left-sided pneumothorax which is a new hence I went ahead and placed a left sided chest tube 28 [place] chest tube was placed since the patient is on mechanical ventilation. Not much changes noted in the pneumothorax after the chest tube placement Reevaluated today on 04/10/20, patient remains intubated and mechanically ventilated ventilator settings are pressure control set at 26, FiO2 is 35%, PEEP is at 5, inspiratory time is 0.70 and the rate is 24. Patient seems to be doing better today, better and adequate tidal volumes noted, just over 300 mL tidal volumes. Chest x-ray continues to show bilateral pneumothoraces secondary to barotrauma. Chest tubes are both in place. ABG today showed a pO2 of 211 pCO2 of 57 pH of 7.40, hence I cut down the FiO2 to 35%. Both tubes continued to have intermittent leaks. Patient is on fentanyl which I cut down to 1 mcg/kg/h and she is on propofol at 50. IV fluids at KVO, patient is do not feeding at present mostly because she is scheduled to undergo a PEG tube placement and tracheostomy today. CBC is relatively normal except for hemoglobin of 8.1. Electrolytes showed a sodium of 147 bicarb history renal profile is normal Reevaluated today on 04/11/20, patient remains in the ICU, intubated and mec hanically ventilated. Patient remains on assist control rate of 30 tidal volume is 250 FiO2 is 40% and PEEP of 5. ABG today showed a pO2 of 139 pCO2 of 81 pH of 7.27. Chest x-ray continues to show bilateral pneumothoraces, not expanding, unchanged. Continues to have 2 bilateral chest tubes. One every hour side. Continues to have some air leak in the right-sided chest tube, and intermittent leak in the left sided chest tube. Patient remains on propofol at 50 mcg/kg/m, she is also on fentanyl at 50 mcg/kg/m, Nimbex at 1 mcg/kg/m, IV fluid is at KVO. Patient is also on enteral feeding. Yesterday the patient was switched from pressure control to assist control mode of mechanical ventilation. And that seems to be working better for the patient today. Gases are actually a bit improving. Patient is scheduled to undergo tracheostomy and PEG tube placement today. CBC showed WBC count of 10 hemoglobin of 8.7 hematocrit of 30.6. Her sodium seems to be high today at 152 hence the patient will be placed on free water via nasogastric tube, and we'll switch her IV fluid to D5W. Will discontinue Lasix. Reevaluated today on 04/12/20, patient remains in the ICU, intubated, mechanical ly ventilated, she is now on assist control mode of mechanical ventilation, rate is 30, FiO2 is 35%, PEEP is 5 and tidal volume is 250. I did cut down the rate down to 26, decrease the flow to 65 L/m, ABG showed a pO2 of 119 pCO2 of 71 pH of 7.37. Patient is on Nimbex, propofol at 50 mcg/kg/m, fentanyl, and her IV fluid is D5W at 100 mL per hour. Patient went off Nimbex earlier today, however she was noted to be more tachypneic, tachycardic, has had to be placed back on Nimbex to adequately ventilate the patient. Portable chest x-ray showed basically no change, continues to have bilateral chest tubes, and her bilateral pneumothoraces are unchanged. Basic metabolic profile today is normal bicarb is 43. Renal profile is normal WBC count is 17.1 hemoglobin is 8.2 hematocrit is 30.1. Reevaluated today on 04/13/20, patient remains in the ICU, intubated and mechanically ventilated. Remains basically on the same ventilator settings assist control rate of 30, tidal volume is 250 rate is 30, FiO2 is 35%, and PEEP is 5. ABG earlier today showed a pO2 of 105 pCO2 of 80 9H of 7.23, and based on that ABG, assist control rate was increased. Patient remains on fentanyl, propofol, Nimbex, and her follow-up chest x-ray today showed persistent low relatively large right-sided pneumothorax,, thoracic surgery was consulted, and recommended another chest tube to be placed. Went ahead and placed another right-sided chest tube, definite improvement noted in the right-sided pneumothorax, but did not completely resolved. Multiple attempts were made to discontinue Nimbex, however the patient gets extremely agitated, tachypneic and tachycardic, and gets to the point where it is extremely difficult to ventilate the patient. Hence lay's back on Nimbex again today after a trial of weaning from Nimbex. Electrolytes were noted to be normal. Renal profile is normal. WBC count is 18.1 hemoglobin is 8.2. Reevaluated today on 04/14/20, patient remains intubated and mechanically venti lated. Her ventilator settings are assist control rate of 30 and I increased that to 32. Tidal volume remains at 250, FiO2 35% and PEEP of 5. ABG this morning showed a pO2 of 77 pCO2 of 85 pH of 7.27. Patient had episodes of fever last night, tachycardic, and had episodes of supraventricular tachycardia, had to be Ambu bag at night but presently back on mechanical ventilation. Ask cardiology to evaluate the patient for possible endocarditis, previous transthoracic echocardiogram was nondiagnostic for endocarditis labs today showed elevated sodium of 150 potassium 3.9 chloride 109 bicarb is 41 BUN is 32 creatinine 0.5. WBC count is 20.7 hemoglobin is 7.9. Platelets are normal. Chest x-ray showed some pulmonary fibrotic changes with apical pleural thickening, the right-sided pneumothorax is definitely less, continues to have a small left apical pneumothorax despite chest tube placement. Intermittent air leak is noted in the second right sided chest tube. Reevaluated today on patient remains on mechanical ventilation, her ventilator settings are assist control rate of 32 tidal volume is 250 FiO2 35% and PEEP of 5. ABG today showed a pO2 of 114 pCO2 of 73 and pH of 7.39, actually this is the best ABG documented on this patient since admission. Her hemoglobin however today is 6.7, and I plan to transfuse the patient 1 unit of packed RBCs. Electrolytes are normal bicarb is 46, and renal profile is normal. Chest x-ray showed bilateral pulmonary fibrotic changes along with apical pleural thickening, scattered areas of infiltrates or edema noted bilaterally. Small left apical pneumothorax persists, continues to have chest tubes, 2 chest tubes on the right side, and one chest tube on the left side, very minimal intermittent air leak noted in the right-sided chest tube #2. No pneumothorax on the right side, patient remains on propofol at 40 mcg/kg/m, fentanyl at 4 mcg/kg/h, she is also on Nimbex 3 mcg/kg/m, and I have ordered to DC Nimbex. She is on enteral feeding vital Hp at 33 mL per hour. IV fluid is D5W was at 1 50 mL per hour because of her hypernatremia, however now that the sodium is corrected I cut it down to 100 mL/h. The patient is seen today 04/18/2020 in follow-up in the intensive care unit. She remains on the mechanical ventilator. Assist control at a rate of 32, tidal volume 250, FiO2 35% and a PEEP of 5. Morning blood gases reveal a P O2 of 97, pCO2 of 82 and a pH is 7.37. She remains sedated on to prevent at 30 mcg/mg/m, Nimbex at 5 mcg/kg/m, fentanyl at 2 mg/kg per hour. She is on pressors with norepinephrine at 0.15 mcg/kg/m. Her tube feeds are currently on hold. She did receive an extra 1.5 L of fluid today. She has received 1 unit of packed blood cells this admission. Current hemoglobin 9.0. White count 16.9. Sodium 133. Potassium 4.0. Bicarb 45. Creatinine 0.26. Urinalysis continues to reveal evidence of urinary tract infection. Remains on cefepime. The patient is seen today 04/19/2020 in follow-up in the intensive care unit. She is status post tracheostomy and PEG tube placements. She remains on mechanical ventilator with settings of assist control of 32, tidal volume 250, FiO2 35% and a PEEP of 5. Morning blood gases reveal pO2 122, pCO2 66, pH 7.45. Chest x-ray reveals bilateral chest tubes and diffuse patchy and interstitial infiltrates. Slightly worse on the left upper lobe. No appreciable pneumothorax. She has a D5 0.9 at 100 ML's per hour. To prevent 50 mcg/kg/m. Fentanyl and 2 mg/kg per hour. Norepinephrine at 10 mcg/m. Tube feedings on hold. The plan is for gift of life approximately 10:00 this morning. Objective - Vital Signs Vital signs: Vital Signs Temp 98.5 F 04/19/20 04:00 Pulse 97 04/19/20 07:00 Resp 32 H 04/19/20 07:00 BP 114/76 04/18/20 12:00 Pulse Ox 98 04/19/20 07:00 Intake & Output 04/18/20 04/19/20 04/19/20 18:59 06:59 18:59 Intake Total 3155.230 8014.028 262.833 Output Total 1650 1335 100 Balance 244.787 434.028 162.833 Intake: IV 1436 1236 103 Dextrose 5% in Water 1, 1000 000 ml @ 100 mls/hr IV . Q10H [facility] Rx#:[id number] Dextrose 5%-0.9% NaCl 1, 200 1200 100 000 ml @ 100 mls/hr IV . Q10H [facility] Rx#:[id number] Potassium Chloride 20 meq 200 In Water For Injection 1 100ml.bag @ 50 mls/hr IVPB [facility] Rx#: [id number] Pressure bag 36 36 3 Intake, IV Titration 458.787 533.028 159.833 Amount Cisatracurium 200 mg In 200 184.388 32.918 Sodium Chloride 0.9% 180 ml @ 5 MCG/KG/MIN 14.85 mls/hr IV .[id number] [facility] Rx #:[id number] Norepinephrine 8 mg In 28.097 11.015 126.915 Sodium Chloride 0.9% 250 ml @ 0.05 MCG/KG/MIN 4. 789 mls/hr IV .Q24H [facility] Rx#:[id number] fentaNYL (PF) 2,500 mcg 189.61 In Sodium Chloride 0.9% 200 ml @ Per Protocol IV .Q0M [facility] Rx#:[id number] propofoL 1,000 mg In 100 Empty Bag 1 bag @ Titrate IV .Q0M [facility] Rx#: [id number] propofoL 1,000 mg In 130.69 148.015 Empty Bag 1 bag @ Titrate IV .Q0M [facility] Rx#: [id number] Output: Urine 1650 1335 100 Other: Voiding Method Indwelling Catheter Indwelling Catheter ABP, PAP, CO, CI - Last Documented Arterial Blood Pressure 128/66 - Exam Gen. appearance: Revealed a 29-year-old female, extremely frail and emaciated, malnourished, on mechanical ventilation Head atraumatic, normocephalic. HEENT: PERRLA, EOMI, neck, no neck masses, no JVD, no stridor.. CHEST EXAMINATION: Trachea is central. Symmetrical expansion.bilateral diminished air entry with bilateral scattered rhonchi. 2 right-sided chest tubes noted and 1 left-sided chest tube is noted. CARDIAC: Normal S1, S2 with no gallops. No murmurs ABDOMEN: Soft. Bowel sounds normal. No organomegaly. No abdominal bruits. Extremities: reveal no edema. No clubbing or cyanosis Neurologically sedated, and paralyzed, on multiple drips including Nimbex, fentanyl, and propofol. Skin: No rash or skin lesions. Psychiatric: Could not assess. Patient is sedated Musculoskeletal: Significant muscle wasting noted bilaterally and the patient is extremely frail - Labs CBC & Chem 7: 04/19/20 04:10 04/19/20 04:10 Labs: Abnormal Lab Results - Last 24 Hours (Table) 04/18/20 04/18/20 04/18/20 Range/Units 12:03 12:33 12:33 WBC 12.3 H (3.8-10.6) k/uL RBC 3.60 L (3.80-5.40) m/uL Hgb 8.5 L (11.4-16.0) gm/dL Hct 27.4 L (34.0-46.0) % MCV 76.0 L (80.0-100.0) fL MCH 23.7 L (25.0-35.0) pg MCHC (31.0-37.0) g/dL RDW 18.5 H (11.5-15.5) % Plt Count 131 L (150-450) k/uL Neutrophils # 10.8 H (1.3-7.7) k/uL Lymphocytes # 0.9 L (1.0-4.8) k/uL ABG pCO2 (35-45) mmHg ABG pO2 (83-108) mmHg ABG HCO3 (21-25) mmol/L ABG Total CO2 (19-24) mmol/L ABG O2 Saturation (94-97) % Sodium 133 L (137-145) mmol/L Chloride 89 L (98-107) mmol/L Carbon Dioxide 47 H* (22-30) mmol/L Creatinine 0.23 L (0.52-1.04) mg/dL Glucose 119 H (74-99) mg/dL POC Glucose (mg/dL) (75-99) mg/dL Calcium 7.2 L (8.4-10.2) mg/dL Ionized Calcium Barbara 4.3 L (4.5-5.3) mg/dL Phosphorus (2.5-4.5) mg/dL AST 49 H (14-36) U/L ALT 47 H (4-34) U/L Total Protein 4.4 L (6.3-8.2) g/dL Albumin 2.2 L (3.5-5.0) g/dL Urine Appearance Cloudy H (Clear) Urine Protein Trace H (Negative) Urine Blood Trace H (Negative) Ur Leukocyte Esterase Large H (Negative) Urine RBC 10 H (0-5) /hpf Urine WBC 37 H (0-5) /hpf Urine WBC Clumps Few H (None) /hpf Urine Bacteria Occasional H (None) /hpf Hyaline Casts 4 H (0-2) /lpf Urine Mucus Rare H (None) /hpf Urine Yeast (Budding) Many H (None) /hpf 04/18/20 04/18/20 04/18/20 Range/Units 12:38 20:30 20:30 WBC 16.5 H (3.8-10.6) k/uL RBC (3.80-5.40) m/uL Hgb 8.7 L (11.4-16.0) gm/dL Hct 29.6 L (34.0-46.0) % MCV 77.2 L (80.0-100.0) fL MCH 22.7 L (25.0-35.0) pg MCHC 29.4 L (31.0-37.0) g/dL RDW 18.4 H (11.5-15.5) % Plt Count 144 L (150-450) k/uL Neutrophils # 14.7 H (1.3-7.7) k/uL Lymphocytes # (1.0-4.8) k/uL ABG pCO2 (35-45) mmHg ABG pO2 (83-108) mmHg ABG HCO3 (21-25) mmol/L ABG Total CO2 (19-24) mmol/L ABG O2 Saturation (94-97) % Sodium 132 L (137-145) mmol/L Chloride 89 L (98-107) mmol/L Carbon Dioxide 46 H* (22-30) mmol/L Creatinine 0.22 L (0.52-1.04) mg/dL Glucose 135 H (74-99) mg/dL POC Glucose (mg/dL) 119 H (75-99) mg/dL Calcium 7.8 L (8.4-10.2) mg/dL Ionized Calcium Barbara (4.5-5.3) mg/dL Phosphorus (2.5-4.5) mg/dL AST 52 H (14-36) U/L ALT 53 H (4-34) U/L Total Protein 4.8 L (6.3-8.2) g/dL Albumin 2.3 L (3.5-5.0) g/dL Urine Appearance (Clear) Urine Protein (Negative) Urine Blood (Negative) Ur Leukocyte Esterase (Negative) Urine RBC (0-5) /hpf Urine WBC (0-5) /hpf Urine WBC Clumps (None) /hpf Urine Bacteria (None) /hpf Hyaline Casts (0-2) /lpf Urine Mucus (None) /hpf Urine Yeast (Budding) (None) /hpf 04/19/20 04/19/20 04/19/20 Range/Units 04:10 04:10 05:49 WBC 14.7 H (3.8-10.6) k/uL RBC 3.29 L (3.80-5.40) m/uL Hgb 7.8 L (11.4-16.0) gm/dL Hct 24.8 L (34.0-46.0) % MCV 75.3 L (80.0-100.0) fL MCH 23.7 L (25.0-35.0) pg MCHC (31.0-37.0) g/dL RDW 19.0 H (11.5-15.5) % Plt Count 149 L (150-450) k/uL Neutrophils # 12.4 H (1.3-7.7) k/uL Lymphocytes # (1.0-4.8) k/uL ABG pCO2 66 H (35-45) mmHg ABG pO2 122 H (83-108) mmHg ABG HCO3 46 H* (21-25) mmol/L ABG Total CO2 48 H (19-24) mmol/L ABG O2 Saturation 100.0 H (94-97) % Sodium 133 L (137-145) mmol/L Chloride 91 L (98-107) mmol/L Carbon Dioxide 45 H* (22-30) mmol/L Creatinine 0.25 L (0.52-1.04) mg/dL Glucose 114 H (74-99) mg/dL POC Glucose (mg/dL) (75-99) mg/dL Calcium 7.6 L (8.4-10.2) mg/dL Ionized Calcium Barbara 4.3 L (4.5-5.3) mg/dL Phosphorus 2.3 L (2.5-4.5) mg/dL AST 43 H (14-36) U/L ALT 50 H (4-34) U/L Total Protein 4.2 L (6.3-8.2) g/dL Albumin 2.0 L (3.5-5.0) g/dL Urine Appearance (Clear) Urine Protein (Negative) Urine Blood (Negative) Ur Leukocyte Esterase (Negative) Urine RBC (0-5) /hpf Urine WBC (0-5) /hpf Urine WBC Clumps (None) /hpf Urine Bacteria (None) /hpf Hyaline Casts (0-2) /lpf Urine Mucus (None) /hpf Urine Yeast (Budding) (None) /hpf 04/19/20 Range/Units 06:30 WBC (3.8-10.6) k/uL RBC (3.80-5.40) m/uL Hgb (11.4-16.0) gm/dL Hct (34.0-46.0) % MCV (80.0-100.0) fL MCH (25.0-35.0) pg MCHC (31.0-37.0) g/dL RDW (11.5-15.5) % Plt Count (150-450) k/uL Neutrophils # (1.3-7.7) k/uL Lymphocytes # (1.0-4.8) k/uL ABG pCO2 (35-45) mmHg ABG pO2 (83-108) mmHg ABG HCO3 (21-25) mmol/L ABG Total CO2 (19-24) mmol/L ABG O2 Saturation (94-97) % Sodium (137-145) mmol/L Chloride (98-107) mmol/L Carbon Dioxide (22-30) mmol/L Creatinine (0.52-1.04) mg/dL Glucose (74-99) mg/dL POC Glucose (mg/dL) (75-99) mg/dL Calcium (8.4-10.2) mg/dL Ionized Calcium Barbara (4.5-5.3) mg/dL Phosphorus (2.5-4.5) mg/dL AST (14-36) U/L ALT (4-34) U/L Total Protein (6.3-8.2) g/dL Albumin (3.5-5.0) g/dL Urine Appearance Turbid H (Clear) Urine Protein Trace H (Negative) Urine Blood Small H (Negative) Ur Leukocyte Esterase Large H (Negative) Urine RBC 85 H (0-5) /hpf Urine WBC >182 H (0-5) /hpf Urine WBC Clumps Many H (None) /hpf Urine Bacteria Occasional H (None) /hpf Hyaline Casts 17 H (0-2) /lpf Urine Mucus Moderate H (None) /hpf Urine Yeast (Budding) Many H (None) /hpf Microbiology - Last 24 Hours (Table) 04/13/20 18:41 Blood Culture - Preliminary Blood No Growth after 120 hours 04/13/20 19:01 Blood Culture - Preliminary Blood No Growth after 120 hours 04/16/20 11:58 Catheter Tip Culture - Final Catheter Tip 04/16/20 10:45 Gram Stain - Final Neck Wound Culture - Final Beta Hemolytic Streptococcus F Assessment and Plan Assessment: 1 Acute hypoxic respiratory failure with bilateral infiltrates, requiring intubation and mechanical ventilatory support, with subsequent tracheostomy tube placement 2 Acute exacerbation of COPD. 3 Bilateral pneumothoraces secondary to barotrauma. 4 Status post placement of one left and 2 right-sided chest tubes for bilateral pneumothoraces. 5 History of IV drug abuse. 6 History of seizure disorder. 7 Generalized anxiety disorder. 8 Remote history of acute lymphocytic leukemia, in remission. 9 Severe malnutrition, BMI is 20.3, this is protein calorie malnutrition, severe in nature. 10 Chronic hypercapnic respiratory failure with metabolic compensation. 11 Hypernatremia with free water deficit, improving with free water given. Decreased IV fluids rate to 100 mL/h remains D5W for now. 12 Status post tracheostomy and PEG tube placement on 04/11/20. Plan: The patient was seen and evaluated by Dr. Sukhdev Morataya, labs, chest x-ray reviewed The plan is for proceeding with [facility] this morning Critical care time 35 minutes I, the cosigning physician, performed a history & physical examination of the patient. Lungs sounds with bilateral scattered rhonchi. Maintaining good O2 saturations in the 90s on 35% FiO2 and a PEEP of 5 on the mechanical ventilator. I discussed the assessment and plan of care with my nurse practitioner, Alma Castillo. I attest to the above note as dictated by her.
[2020-04-19] MEDS: MORPHINE SULFATE (100 MG/2 ML) 100 MG in SODIUM CHLORIDE 0.9% 100 ML IV SCH ×2 (10:30→11:35)
[2020-04-19] MEDS ORDERED: LORazepam 2 MG/ML INJ ONE (10:53)
--- NOTE | 2020-04-19 11:34 | P.PN ---
Subjective Progress Note Date: 04/19/20 CHIEF COMPLAINT: Hypoxia HISTORY OF PRESENT ILLNESS: The patient is a 29-year-old female pre-existing his tory of methamphetamine abuse including IV drug abuse who was hospitalized at outside institution in [place] for pneumonia. Patient left AGAINST MEDICAL ADVICE and presented for her current hospitalization for hypoxia including difficulty with breathing. Diagnostic studies confirmed pneumonia. Patient remains in the ICU on mechanical ventilation, sedation and paralyzed. She still has chest tubes in place. She is status post tracheostomy and PEG tube placement on 04/11/2020. Afebrile. Covid negative WBC 14.7 Patient is scheduled for [facility] this morning PHYSICAL EXAM: VITAL SIGNS: Reviewed. GENERAL: Well-developed in no acute distress. HEENT: No sclera icterus. Extraocular movements grossly intact. Moist buccal mucosa. Head is atraumatic, normocephalic. Tracheostomy site is clean ABDOMEN: Soft. Nondistended. Nontender. PEG tube site clean dry and intact NEUROLOGIC: Depressed due to sedation ASSESSMENT: 1. Acute hypoxic respiratory failure status post tracheostomy 2. Moderate protein calorie malnutrition status post PEG tube placement 3. Bilateral pneumothoraces 4. IV drug abuse methamphetamine abuse PLAN: -Patient is scheduled for [facility] this morning [facility] [employer] [employer] note has been reviewed by physician. Signing provider agrees with the documented findings, assessment, and plan of care. Objective - Vital Signs Vital signs: Vital Signs Temp 98.5 F 04/19/20 04:00 Pulse 97 04/19/20 07:00 Resp 32 H 04/19/20 07:00 BP 114/76 04/18/20 12:00 Pulse Ox 98 04/19/20 07:00 Intake & Output 04/18/20 04/19/20 04/19/20 18:59 06:59 18:59 Intake Total 6957.659 6844.028 262.833 Output Total 1650 1335 100 Balance 244.787 434.028 162.833 Weight 49.5 kg Intake: IV 1436 1236 103 Dextrose 5% in Water 1, 1000 000 ml @ 100 mls/hr IV . Q10H [facility] Rx#:[id number] Dextrose 5%-0.9% NaCl 1, 200 1200 100 000 ml @ 100 mls/hr IV . Q10H [facility] Rx#:[id number] Potassium Chloride 20 meq 200 In Water For Injection 1 100ml.bag @ 50 mls/hr IVPB ONCE [facility] Rx#: [id number] Pressure bag 36 36 3 Intake, IV Titration 458.787 533.028 159.833 Amount Cisatracurium 200 mg In 200 184.388 32.918 Sodium Chloride 0.9% 180 ml @ 5 MCG/KG/MIN 14.85 mls/hr IV .[id number] [facility] Rx #:[id number] Norepinephrine 8 mg In 28.097 11.015 126.915 Sodium Chloride 0.9% 250 ml @ 0.05 MCG/KG/MIN 4. 789 mls/hr IV .Q24H [facility] Rx#:[id number] fentaNYL (PF) 2,500 mcg 189.61 In Sodium Chloride 0.9% 200 ml @ Per Protocol IV .Q0M [facility] Rx#:[id number] propofoL 1,000 mg In 100 Empty Bag 1 bag @ Titrate IV .Q0M [facility] Rx#: [id number] propofoL 1,000 mg In 130.69 148.015 Empty Bag 1 bag @ Titrate IV .Q0M [facility] Rx#: [id number] Output: Urine 1650 1335 100 Other: Voiding Method Indwelling Catheter Indwelling Catheter ABP, PAP, CO, CI - Last Documented Arterial Blood Pressure 128/66 - Labs CBC & Chem 7: 04/19/20 04:10 04/19/20 04:10 Labs: Abnormal Lab Results - Last 24 Hours (Table) 04/18/20 04/18/20 04/18/20 Range/Units 12:03 12:33 12:33 WBC 12.3 H (3.8-10.6) k/uL RBC 3.60 L (3.80-5.40) m/uL Hgb 8.5 L (11.4-16.0) gm/dL Hct 27.4 L (34.0-46.0) % MCV 76.0 L (80.0-100.0) fL MCH 23.7 L (25.0-35.0) pg MCHC (31.0-37.0) g/dL RDW 18.5 H (11.5-15.5) % Plt Count 131 L (150-450) k/uL Neutrophils # 10.8 H (1.3-7.7) k/uL Lymphocytes # 0.9 L (1.0-4.8) k/uL ABG pCO2 (35-45) mmHg ABG pO2 (83-108) mmHg ABG HCO3 (21-25) mmol/L ABG Total CO2 (19-24) mmol/L ABG O2 Saturation (94-97) % Sodium 133 L (137-145) mmol/L Chloride 89 L (98-107) mmol/L Carbon Dioxide 47 H* (22-30) mmol/L Creatinine 0.23 L (0.52-1.04) mg/dL Glucose 119 H (74-99) mg/dL POC Glucose (mg/dL) (75-99) mg/dL Calcium 7.2 L (8.4-10.2) mg/dL Ionized Calcium Barbara 4.3 L (4.5-5.3) mg/dL Phosphorus (2.5-4.5) mg/dL AST 49 H (14-36) U/L ALT 47 H (4-34) U/L Total Protein 4.4 L (6.3-8.2) g/dL Albumin 2.2 L (3.5-5.0) g/dL Urine Appearance Cloudy H (Clear) Urine Protein Trace H (Negative) Urine Blood Trace H (Negative) Ur Leukocyte Esterase Large H (Negative) Urine RBC 10 H (0-5) /hpf Urine WBC 37 H (0-5) /hpf Urine WBC Clumps Few H (None) /hpf Urine Bacteria Occasional H (None) /hpf Hyaline Casts 4 H (0-2) /lpf Urine Mucus Rare H (None) /hpf Urine Yeast (Budding) Many H (None) /hpf 04/18/20 04/18/20 04/18/20 Range/Units 12:38 20:30 20:30 WBC 16.5 H (3.8-10.6) k/uL RBC (3.80-5.40) m/uL Hgb 8.7 L (11.4-16.0) gm/dL Hct 29.6 L (34.0-46.0) % MCV 77.2 L (80.0-100.0) fL MCH 22.7 L (25.0-35.0) pg MCHC 29.4 L (31.0-37.0) g/dL RDW 18.4 H (11.5-15.5) % Plt Count 144 L (150-450) k/uL Neutrophils # 14.7 H (1.3-7.7) k/uL Lymphocytes # (1.0-4.8) k/uL ABG pCO2 (35-45) mmHg ABG pO2 (83-108) mmHg ABG HCO3 (21-25) mmol/L ABG Total CO2 (19-24) mmol/L ABG O2 Saturation (94-97) % Sodium 132 L (137-145) mmol/L Chloride 89 L (98-107) mmol/L Carbon Dioxide 46 H* (22-30) mmol/L Creatinine 0.22 L (0.52-1.04) mg/dL Glucose 135 H (74-99) mg/dL POC Glucose (mg/dL) 119 H (75-99) mg/dL Calcium 7.8 L (8.4-10.2) mg/dL Ionized Calcium Barbara (4.5-5.3) mg/dL Phosphorus (2.5-4.5) mg/dL AST 52 H (14-36) U/L ALT 53 H (4-34) U/L Total Protein 4.8 L (6.3-8.2) g/dL Albumin 2.3 L (3.5-5.0) g/dL Urine Appearance (Clear) Urine Protein (Negative) Urine Blood (Negative) Ur Leukocyte Esterase (Negative) Urine RBC (0-5) /hpf Urine WBC (0-5) /hpf Urine WBC Clumps (None) /hpf Urine Bacteria (None) /hpf Hyaline Casts (0-2) /lpf Urine Mucus (None) /hpf Urine Yeast (Budding) (None) /hpf 04/19/20 04/19/20 04/19/20 Range/Units 04:10 04:10 05:49 WBC 14.7 H (3.8-10.6) k/uL RBC 3.29 L (3.80-5.40) m/uL Hgb 7.8 L (11.4-16.0) gm/dL Hct 24.8 L (34.0-46.0) % MCV 75.3 L (80.0-100.0) fL MCH 23.7 L (25.0-35.0) pg MCHC (31.0-37.0) g/dL RDW 19.0 H (11.5-15.5) % Plt Count 149 L (150-450) k/uL Neutrophils # 12.4 H (1.3-7.7) k/uL Lymphocytes # (1.0-4.8) k/uL ABG pCO2 66 H (35-45) mmHg ABG pO2 122 H (83-108) mmHg ABG HCO3 46 H* (21-25) mmol/L ABG Total CO2 48 H (19-24) mmol/L ABG O2 Saturation 100.0 H (94-97) % Sodium 133 L (137-145) mmol/L Chloride 91 L (98-107) mmol/L Carbon Dioxide 45 H* (22-30) mmol/L Creatinine 0.25 L (0.52-1.04) mg/dL Glucose 114 H (74-99) mg/dL POC Glucose (mg/dL) (75-99) mg/dL Calcium 7.6 L (8.4-10.2) mg/dL Ionized Calcium Barbara 4.3 L (4.5-5.3) mg/dL Phosphorus 2.3 L (2.5-4.5) mg/dL AST 43 H (14-36) U/L ALT 50 H (4-34) U/L Total Protein 4.2 L (6.3-8.2) g/dL Albumin 2.0 L (3.5-5.0) g/dL Urine Appearance (Clear) Urine Protein (Negative) Urine Blood (Negative) Ur Leukocyte Esterase (Negative) Urine RBC (0-5) /hpf Urine WBC (0-5) /hpf Urine WBC Clumps (None) /hpf Urine Bacteria (None) /hpf Hyaline Casts (0-2) /lpf Urine Mucus (None) /hpf Urine Yeast (Budding) (None) /hpf 04/19/20 Range/Units 06:30 WBC (3.8-10.6) k/uL RBC (3.80-5.40) m/uL Hgb (11.4-16.0) gm/dL Hct (34.0-46.0) % MCV (80.0-100.0) fL MCH (25.0-35.0) pg MCHC (31.0-37.0) g/dL RDW (11.5-15.5) % Plt Count (150-450) k/uL Neutrophils # (1.3-7.7) k/uL Lymphocytes # (1.0-4.8) k/uL ABG pCO2 (35-45) mmHg ABG pO2 (83-108) mmHg ABG HCO3 (21-25) mmol/L ABG Total CO2 (19-24) mmol/L ABG O2 Saturation (94-97) % Sodium (137-145) mmol/L Chloride (98-107) mmol/L Carbon Dioxide (22-30) mmol/L Creatinine (0.52-1.04) mg/dL Glucose (74-99) mg/dL POC Glucose (mg/dL) (75-99) mg/dL Calcium (8.4-10.2) mg/dL Ionized Calcium Barbara (4.5-5.3) mg/dL Phosphorus (2.5-4.5) mg/dL AST (14-36) U/L ALT (4-34) U/L Total Protein (6.3-8.2) g/dL Albumin (3.5-5.0) g/dL Urine Appearance Turbid H (Clear) Urine Protein Trace H (Negative) Urine Blood Small H (Negative) Ur Leukocyte Esterase Large H (Negative) Urine RBC 85 H (0-5) /hpf Urine WBC >182 H (0-5) /hpf Urine WBC Clumps Many H (None) /hpf Urine Bacteria Occasional H (None) /hpf Hyaline Casts 17 H (0-2) /lpf Urine Mucus Moderate H (None) /hpf Urine Yeast (Budding) Many H (None) /hpf Microbiology - Last 24 Hours (Table) 04/13/20 18:41 Blood Culture - Preliminary Blood No Growth after 120 hours 04/13/20 19:01 Blood Culture - Preliminary Blood No Growth after 120 hours 04/16/20 11:58 Catheter Tip Culture - Final Catheter Tip 04/16/20 10:45 Gram Stain - Final Neck Wound Culture - Final Beta Hemolytic Streptococcus F
[2020-04-19 16:13] VITALS: BP 91/56; PULSE 91; RESP 24; TEMP 98.7
--- NOTE | 2020-04-19 22:36 | P.PN ---
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 Patient does have history of IV drug abuse and stopped using approximately 2 weeks ago. Patient was seen at outside hospital in [place] for difficulty in breathing. Patient left AGAINST MEDICAL ADVICE. Patient came to [place] to see her family and has been having worsening symptoms again with cough and dyspnea. Chest x-ray showed diffuse bilateral pleural parenchymal changes.Coronavirus PCR and influenza A and B negative.CT angiogram showed no evidence of pulmonary embolism. Patient is status post bronchoscopy with bronchial lavage on 04/04. Patient eventually need intubation and placed on mechanical ventilation for worsening respiratory failure. Her hospital course was complicated by right pneumothorax and chest tube was placed by surgery team. Today she developed left-sided pneumothorax with another chest tube was placed. Patient remains on broad-spectrum antibiotics with cefepime , she was on IV vancomycin which is a stopped now. Also she is on small doses of IV Lasix 20 mg daily and salmeterol 60 mg. Surgery team were consulted for PEG tube and tracheostomy placement 04/10/2020 Patient remains in the ICU for COPD and pneumonia, his currently on cefepime and IV Solu-Medrol. He is intubated on mechanical ventilation was managed closely by pulmonary/critical care team. As per the pulmonary team patient is doing better today. His hospital course is complicated by bilateral pneumothoraces status post bilateral chest tube. Also patient is undergoing PEG tube and tracheostomy placement Also patient is still tachycardic and tachypneic. Also patient is on Lasix 20 mg twice daily, was once daily yesterday 04/11/2020 Patient remains in the ICU on mechanical ventilation and looks patient is doing better with her oxygenation and depressed ventilation with pulmonary/critical care team followed closely. She still has bilateral chest tubes for bilateral pneumothoraces Patient underwent PEG tube placement and tracheostomy placement by surgery team Her sodium was trending up to 152, D5 W was started and Lasix was stopped. 04/12/2020 Patient remains in the ICU, on mechanical ventilation with pulmonary/critical care team on the case. Patient was tachycardic and tachypneic and she had to be placed back on the buttocks however generally there is normal change in her clinical condition. She still needs bilateral chest tubes for bilateral pneumothoraces. She status post PEG tube and tracheostomy by surgery team She remains on cefepime Solu-Medrol 03/13/2020 Patient remains in the ICU intubated and sedated, she is on mechanical ventilation, she status post PEG tube placement and tracheostomy. No much progress in her condition. Cardiothoracic surgery evaluated the patient for her chest tube management. She still have air leak on the right side. No surgical intervention further recommendation and to continue suction on blood pressure Patient remains on cefepime for her bilateral airway disease. Her hypernatremia is improved with D5W and currently she is on normal saline at 100 mL/h and sodium level is 140. Also she is on Solu-Medrol for her severe asthma. Pulmon elier/critical care team on the case. 04/14/2020 Patient remains in the ICU, not making much progress, she still intubated and on mechanical ventilation. She's been followed by several consult of [facility] pulmonary/critical care team, pack puller, cardiothoracic surgery, infectious disease and Gen. surgery She remains on bilateral chest tube She remains on cefepime per ID recommendation She is also on Solu-Medrol 60 mg D5W was started. Sodium is 150. Prognosis remains guarded 04/15/2020 Patient remains in the ICU intubated and sedated, she still with bilateral thoracocentesis. Pulmonary/critical care on the team department to give 1 unit of blood transfusion. And patient continues with antral feeding.Patient continued on D5W for hypernatremia with close monitoring of sodium level. Car diothoracic surgery team were consulted and they recommended to continue with the conservative management for her chest tubes. She really did not make any progress regarding her healing. Prognosis remains very guarded 04/16/2020 When I saw the patient earlier in the morning she was still on mechanical ventilation, because of that patient cannot provide information as per bedside nerve patient remains the same with no much improvement, pulmonary/critical care team are planning to replace her. She was still with IV antibiotics and steroids. She was still has an bilateral thoracocentesis and surgical team on the case with close monitoring. She still getting feeding through the tube. Prognosis is very guarded 04/17/2020 Family decided for the patient to go for organ donation (DCD) donation post cardiac . I talked to the staff for donation organ and they recommended that the patient to continue with the same treatment of antibiotic, mechanical ventilation and all other measures to keep her organ Vital, DCD staff they wanted to do a CT of the abdomen , pelvis and chest. Also echocardiogram to see if the patient is eligible for donation back in and they going to investigate this possibility and make decision about it Medical team will keep following the patient and provide the medical care while the DCD decided about the organ donation. They have concerned that patient may had leukemia and they asked me to get some information for them. I discussed the case with Dr. Simmons reviews the previous records and their office, it looks like the patient was diagnosed with ALL in 2006 however she got treatment and she was admission by 2014 wound was checked in the office again. So it has been [address] Simmons thinks the patient does not have an active disease currently especially in view of her CBC results. 04/18/2020 Patient remains on mechanical ventilations with Doppler/critical care team following, also she has bilateral chest tubes. Patient did not make much progress in her clinical status and the family decided organ donation versus comfort care measures. Patient cannot provide information. Discussed with bed side nurse. Patient is going for surgery from tomorrow for extubation by the pulmonary/critical care acute and to be followed later by organ donation procedure versus comfort care measures 03/20/2020 Patient in the ICU intubated and sedated. Planned to go for organ donation procedure this morning Pulmonary and surgery team are on the case and they are aware of the plan Ativan and morphine is provided for the patient Review of systems N/a Objective - Vital Signs Vital signs: Vital Signs Temp 98.5 F 04/19/20 04:00 Pulse 97 04/19/20 07:00 Resp 32 H 04/19/20 07:00 BP 114/76 04/18/20 12:00 Pulse Ox 98 04/19/20 07:00 Intake & Output 04/18/20 04/19/20 04/19/20 18:59 06:59 18:59 Intake Total 2373.842 2861.028 262.833 Output Total 1650 1335 100 Balance 244.787 434.028 162.833 Intake: IV 1436 1236 103 Dextrose 5% in Water 1, 1000 000 ml @ 100 mls/hr IV . Q10H [facility] Rx#:[id number] Dextrose 5%-0.9% NaCl 1, 200 1200 100 000 ml @ 100 mls/hr IV . Q10H [facility] Rx#:[id number] Potassium Chloride 20 meq 200 In Water For Injection 1 100ml.bag @ 50 mls/hr IVPB ONCE [facility] Rx#: [id number] Pressure bag 36 36 3 Intake, IV Titration 458.787 533.028 159.833 Amount Cisatracurium 200 mg In 200 184.388 32.918 Sodium Chloride 0.9% 180 ml @ 5 MCG/KG/MIN 14.85 mls/hr IV .[id number] [facility] Rx #:[id number] Norepinephrine 8 mg In 28.097 11.015 126.915 Sodium Chloride 0.9% 250 ml @ 0.05 MCG/KG/MIN 4. 789 mls/hr IV .Q24H [facility] Rx#:[id number] fentaNYL (PF) 2,500 mcg 189.61 In Sodium Chloride 0.9% 200 ml @ Per Protocol IV .Q0M [facility] Rx#:[id number] propofoL 1,000 mg In 100 Empty Bag 1 bag @ Titrate IV .Q0M [facility] Rx#: [id number] propofoL 1,000 mg In 130.69 148.015 Empty Bag 1 bag @ Titrate IV .Q0M [facility] Rx#: [id number] Output: Urine 1650 1335 100 Other: Voiding Method Indwelling Catheter Indwelling Catheter ABP, PAP, CO, CI - Last Documented Arterial Blood Pressure 128/66 - Exam -GENERAL: The patient is intubated and sedated HEENT: Pupils are round and equally reacting to light. EOMI. No scleral icterus. No conjunctival pallor. Normocephalic, atraumatic. No pharyngeal erythema. No thyromegaly. CARDIOVASCULAR: S1 and S2 present. No murmurs, rubs, or gallops. -PULMONARY: Chest is clear to auscultation, no wheezing or crackles. Bilateral chest tube placement ABDOMEN: Soft, nontender, nondistended, normoactive bowel sounds. No palpable organomegaly. MUSCULOSKELETAL: No joint swelling or deformity. EXTREMITIES: No cyanosis, clubbing, or pedal edema. NEUROLOGICAL: Gross neurological examination did not reveal any focal deficits. SKIN: No rashes. no petechiae. - Labs CBC & Chem 7: 04/19/20 04:10 04/19/20 04:10 Labs: Abnormal Lab Results - Last 24 Hours (Table) 04/18/20 04/18/20 04/18/20 Range/Units 12:03 12:33 12:33 WBC 12.3 H (3.8-10.6) k/uL RBC 3.60 L (3.80-5.40) m/uL Hgb 8.5 L (11.4-16.0) gm/dL Hct 27.4 L (34.0-46.0) % MCV 76.0 L (80.0-100.0) fL MCH 23.7 L (25.0-35.0) pg MCHC (31.0-37.0) g/dL RDW 18.5 H (11.5-15.5) % Plt Count 131 L (150-450) k/uL Neutrophils # 10.8 H (1.3-7.7) k/uL Lymphocytes # 0.9 L (1.0-4.8) k/uL ABG pCO2 (35-45) mmHg ABG pO2 (83-108) mmHg ABG HCO3 (21-25) mmol/L ABG Total CO2 (19-24) mmol/L ABG O2 Saturation (94-97) % Sodium 133 L (137-145) mmol/L Chloride 89 L (98-107) mmol/L Carbon Dioxide 47 H* (22-30) mmol/L Creatinine 0.23 L (0.52-1.04) mg/dL Glucose 119 H (74-99) mg/dL POC Glucose (mg/dL) (75-99) mg/dL Calcium 7.2 L (8.4-10.2) mg/dL Ionized Calcium Barbara 4.3 L (4.5-5.3) mg/dL Phosphorus (2.5-4.5) mg/dL AST 49 H (14-36) U/L ALT 47 H (4-34) U/L Total Protein 4.4 L (6.3-8.2) g/dL Albumin 2.2 L (3.5-5.0) g/dL Urine Appearance Cloudy H (Clear) Urine Protein Trace H (Negative) Urine Blood Trace H (Negative) Ur Leukocyte Esterase Large H (Negative) Urine RBC 10 H (0-5) /hpf Urine WBC 37 H (0-5) /hpf Urine WBC Clumps Few H (None) /hpf Urine Bacteria Occasional H (None) /hpf Hyaline Casts 4 H (0-2) /lpf Urine Mucus Rare H (None) /hpf Urine Yeast (Budding) Many H (None) /hpf 04/18/20 04/18/20 04/18/20 Range/Units 12:38 20:30 20:30 WBC 16.5 H (3.8-10.6) k/uL RBC (3.80-5.40) m/uL Hgb 8.7 L (11.4-16.0) gm/dL Hct 29.6 L (34.0-46.0) % MCV 77.2 L (80.0-100.0) fL MCH 22.7 L (25.0-35.0) pg MCHC 29.4 L (31.0-37.0) g/dL RDW 18.4 H (11.5-15.5) % Plt Count 144 L (150-450) k/uL Neutrophils # 14.7 H (1.3-7.7) k/uL Lymphocytes # (1.0-4.8) k/uL ABG pCO2 (35-45) mmHg ABG pO2 (83-108) mmHg ABG HCO3 (21-25) mmol/L ABG Total CO2 (19-24) mmol/L ABG O2 Saturation (94-97) % Sodium 132 L (137-145) mmol/L Chloride 89 L (98-107) mmol/L Carbon Dioxide 46 H* (22-30) mmol/L Creatinine 0.22 L (0.52-1.04) mg/dL Glucose 135 H (74-99) mg/dL POC Glucose (mg/dL) 119 H (75-99) mg/dL Calcium 7.8 L (8.4-10.2) mg/dL Ionized Calcium Barbara (4.5-5.3) mg/dL Phosphorus (2.5-4.5) mg/dL AST 52 H (14-36) U/L ALT 53 H (4-34) U/L Total Protein 4.8 L (6.3-8.2) g/dL Albumin 2.3 L (3.5-5.0) g/dL Urine Appearance (Clear) Urine Protein (Negative) Urine Blood (Negative) Ur Leukocyte Esterase (Negative) Urine RBC (0-5) /hpf Urine WBC (0-5) /hpf Urine WBC Clumps (None) /hpf Urine Bacteria (None) /hpf Hyaline Casts (0-2) /lpf Urine Mucus (None) /hpf Urine Yeast (Budding) (None) /hpf 04/19/20 04/19/20 04/19/20 Range/Units 04:10 04:10 05:49 WBC 14.7 H (3.8-10.6) k/uL RBC 3.29 L (3.80-5.40) m/uL Hgb 7.8 L (11.4-16.0) gm/dL Hct 24.8 L (34.0-46.0) % MCV 75.3 L (80.0-100.0) fL MCH 23.7 L (25.0-35.0) pg MCHC (31.0-37.0) g/dL RDW 19.0 H (11.5-15.5) % Plt Count 149 L (150-450) k/uL Neutrophils # 12.4 H (1.3-7.7) k/uL Lymphocytes # (1.0-4.8) k/uL ABG pCO2 66 H (35-45) mmHg ABG pO2 122 H (83-108) mmHg ABG HCO3 46 H* (21-25) mmol/L ABG Total CO2 48 H (19-24) mmol/L ABG O2 Saturation 100.0 H (94-97) % Sodium 133 L (137-145) mmol/L Chloride 91 L (98-107) mmol/L Carbon Dioxide 45 H* (22-30) mmol/L Creatinine 0.25 L (0.52-1.04) mg/dL Glucose 114 H (74-99) mg/dL POC Glucose (mg/dL) (75-99) mg/dL Calcium 7.6 L (8.4-10.2) mg/dL Ionized Calcium Barbara 4.3 L (4.5-5.3) mg/dL Phosphorus 2.3 L (2.5-4.5) mg/dL AST 43 H (14-36) U/L ALT 50 H (4-34) U/L Total Protein 4.2 L (6.3-8.2) g/dL Albumin 2.0 L (3.5-5.0) g/dL Urine Appearance (Clear) Urine Protein (Negative) Urine Blood (Negative) Ur Leukocyte Esterase (Negative) Urine RBC (0-5) /hpf Urine WBC (0-5) /hpf Urine WBC Clumps (None) /hpf Urine Bacteria (None) /hpf Hyaline Casts (0-2) /lpf Urine Mucus (None) /hpf Urine Yeast (Budding) (None) /hpf 04/19/20 Range/Units 06:30 WBC (3.8-10.6) k/uL RBC (3.80-5.40) m/uL Hgb (11.4-16.0) gm/dL Hct (34.0-46.0) % MCV (80.0-100.0) fL MCH (25.0-35.0) pg MCHC (31.0-37.0) g/dL RDW (11.5-15.5) % Plt Count (150-450) k/uL Neutrophils # (1.3-7.7) k/uL Lymphocytes # (1.0-4.8) k/uL ABG pCO2 (35-45) mmHg ABG pO2 (83-108) mmHg ABG HCO3 (21-25) mmol/L ABG Total CO2 (19-24) mmol/L ABG O2 Saturation (94-97) % Sodium (137-145) mmol/L Chloride (98-107) mmol/L Carbon Dioxide (22-30) mmol/L Creatinine (0.52-1.04) mg/dL Glucose (74-99) mg/dL POC Glucose (mg/dL) (75-99) mg/dL Calcium (8.4-10.2) mg/dL Ionized Calcium Barbara (4.5-5.3) mg/dL Phosphorus (2.5-4.5) mg/dL AST (14-36) U/L ALT (4-34) U/L Total Protein (6.3-8.2) g/dL Albumin (3.5-5.0) g/dL Urine Appearance Turbid H (Clear) Urine Protein Trace H (Negative) Urine Blood Small H (Negative) Ur Leukocyte Esterase Large H (Negative) Urine RBC 85 H (0-5) /hpf Urine WBC >182 H (0-5) /hpf Urine WBC Clumps Many H (None) /hpf Urine Bacteria Occasional H (None) /hpf Hyaline Casts 17 H (0-2) /lpf Urine Mucus Moderate H (None) /hpf Urine Yeast (Budding) Many H (None) /hpf Microbiology - Last 24 Hours (Table) 04/13/20 18:41 Blood Culture - Preliminary Blood No Growth after 120 hours 04/13/20 19:01 Blood Culture - Preliminary Blood No Growth after 120 hours 04/16/20 11:58 Catheter Tip Culture - Final Catheter Tip 04/16/20 10:45 Gram Stain - Final Neck Wound Culture - Final Beta Hemolytic Streptococcus F Assessment and Plan Assessment: Bilateral patchy groundglass opacities Secondary to pneumonia. Patient possible ARDS. End stage and patient is being considered for comfort care by family Acute hypoxic respiratory failure secondary to pneumonia currently patient is on mechanical ventilator. Status post tracheostomy and PEG placement on 04/11 Bilateral pneumothorax. Status post bilateral chest tube placement. Acute asthma exacerbation hypernatremia Recent history of IV drug abuse, about 2 weeks prior to admission non-Compliance to therapy. The patient left A in [facility] History of ALL currently in remission. History of Anxiety Nicotine dependence, everyday smoker Plan: This is a 29 years old female who presents with bilateral pneumonia and possible ARDS and bilateral pneumothorax status post chest tube. Continue with antibiotic, continue with. Patient is considered for DCD donation. Follow-up recommendation by pulmonary/critical care team R following the case closely, and surgery teams Labs and medication were reviewed.. Continue same treatment. Continue with symptomatic treatment. Resume home medication. Monitor lytes and vitals. DVT and GI prophylaxis. Further recommendationsas per clinical course of the patient DVT prophylaxis: Subcutaneous Lovenox GI Prophylaxis: Pepcid Prognosis is guarded
--- NOTE | 2020-04-23 12:27 | CDI ---
Documentation Clarification Form Date: 04/23/2020 12:17:49 PM From: Monserrat Swan RN, CCDS Admit Date: 04/02/2020 05:42:00 PM Patient Name: Lu Hoover Visit Number: [id number] Discharge Date: 04/19/2020 06:41:00 P ATTENTION: The Clinical Documentation Specialists (CDI) and [facility] Coding Staff appreciate your assistance in clarifying documentation. Please respond to the clarification below the line at the bottom and electronically sign. The CDI & [facility] Coding staff will review the response and follow-up if needed. Please note: Queries are made part of the Legal Health Record. If you have any questions, please contact the author of this message via ITS. Dr. Emerson E Sheet A diagnosis of UTI has been documented in the Pulmonary Progress notes 04/18-04/19 History/Risk Factors: Per documentation in the progress notes this patient has an indwelling Ac catheter and UTI Sepsis, pneumonia, ALL in remission, ARDS, severe malnutrition Clinical Indicators: 04/17-04/19: + U/A each day Urine culture: no urine cultures ordered 04/17-04/19 Lab results: WBC 17.4/16.5/14.7, Neutrophils 15/14.7/12.4 Treatment: Iv Vancomycin PTD IV cefepime 2gm IVPB q 12 hrs. In your professional opinion, can you please clarify the etiology of the UTI, if known? Ac catheter related UTI UTI not related to catheter Other condition, please specify Unable to determine If an infective organism is present, please specify cause and effect relationship if applicable. (Last Revision: August 2017) Unable to determine, unlikely MTDD
--- NOTE | 2020-04-23 12:28 | CDI ---
Documentation Clarification Form Date: 04/23/2020 12:17:49 PM From: Monserrat Swan RN, CCDS Admit Date: 04/02/2020 05:42:00 PM Patient Name: Lu Hoover Visit Number: [id number] Discharge Date: 04/19/2020 06:41:00 P ATTENTION: The Clinical Documentation Specialists (CDI) and [facility] Coding Staff appreciate your assistance in clarifying documentation. Please respond to the clarification below the line at the bottom and electronically sign. The CDI & [facility] Coding staff will review the response and follow-up if needed. Please note: Queries are made part of the Legal Health Record. If you have any questions, please contact the author of this message via ITS. Dr. Emerson E Sheet A diagnosis of UTI has been documented in the Pulmonary Progress notes 04/18-04/19 History/Risk Factors: Per documentation in the progress notes this patient has an indwelling Ac catheter and UTI Sepsis, pneumonia, ALL in remission, ARDS, severe malnutrition Clinical Indicators: 04/17-04/19: + U/A each day Urine culture: no urine cultures ordered 04/17-04/19 Lab results: WBC 17.4/16.5/14.7, Neutrophils 15/14.7/12.4 Treatment: Iv Vancomycin PTD IV cefepime 2gm IVPB q 12 hrs. In your professional opinion, can you please clarify the etiology of the UTI, if known? Ac catheter related UTI UTI not related to catheter Other condition, please specify Unable to determine If an infective organism is present, please specify cause and effect relationship if applicable. (Last Revision: August 2017) unlikely MTDD
--- NOTE | 2020-04-23 12:45 | CDI ---
Documentation Clarification Form Date: 04/23/2020 12:31:56 PM From: Monserrat Swan RN, CCDS Phone: [phone] Admit Date: 04/02/2020 05:42:00 PM Patient Name: Lu Hoover Visit Number: [id number] Discharge Date: 04/19/2020 06:41:00 PM ATTENTION: The Clinical Documentation Specialists (CDI) and [facility] Coding Staff appreciate your assistance in clarifying documentation. Please respond to the clarification below the line at the bottom and electronically sign. The CDI & [facility] Coding staff will review the response and follow-up if needed. Please note: Queries are made part of the Legal Health Record. If you have any questions, please contact the author of this message via ITS. Dr. Ki Bunch A pressure ulcer was documented in the Nursing assessments and requires documentation by the MD to accurately reflect the Pt SOI/ROM History/Risk Factors: ARDS, Pneumonia, Sepsis, Malnutrition with Peg tube, nicotine dependence, IVDA, bilateral Pneumo's with barotrauma Clinical Indicators: Color photo on chart Dated 04/14/20202100 showing fouzia, open sacral wound with DTI surrounding edges Wound description: 04/13 2000 Nursing assessment: "pressure injury stage 3 with indistinct wound margins, with a small amount of serosanguinous drainage with surrounding maceration 9 cm long x 7 cm wide Location: Coccyx: Treatment: Honey HD sheet and nonadherant pad Elements for accurate and compliant documentation of an ulcer: *The location/laterality of the ulcer *Etiology (decubitus/pressure, diabetic, PVD) *Stage I-IV, Unstageable, Suspected Deep Tissue Injury (To the deepest stage) *If the ulcer was present at admission (POA) or occurred after admission In your professional opinion, can you please clarify the diagnosis, location, laterality and whether present on admission (POA) or hospital acquired: Stage 1 Pressure/Decubitus Ulcer (intact skin, non-blanching redness of local area) Stage 2 Pressure/Decubitus Ulcer (Partial thickness, loss of dermis, pink wound bed) Stage 3 Pressure/Decubitus Ulcer (Full thickness tissue loss) Stage 4 Pressure/Decubitus Ulcer (Full thickness tissue loss with exposed bone, tendon, or muscle. May have slough or eschar present) Unstageable Other condition, please specify Unable to determine Please indicate etiology of pressure ulcer (if known). (Last Revision: February 2017) Unable to determine MTDD
--- NOTE | 2020-04-23 13:04 | CDI ---
Documentation Clarification Form Date: 04/23/2020 12:59:41 PM From: Monserrat Swan RN, CCDS Admit Date: 04/02/2020 05:42:00 PM Patient Name: Lu Hoover Visit Number: [id number] Discharge Date: 04/19/2020 06:41:00 PM ATTENTION: The Clinical Documentation Specialists (CDI) and [facility] Coding Staff appreciate your assistance in clarifying documentation. Please respond to the clarification below the line at the bottom and electronically sign. The CDI & [facility] Coding staff will review the response and follow-up if needed. Please note: Queries are made part of the Legal Health Record. If you have any questions, please contact the author of this message via ITS. Dr. Emerson E Sheet The patient presented with a diagnosis of sepsis and pneumonia from . Please review to accurately reflect SOI ROM, and document if sepsis was POA or occurred during stay. 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/p Chemo, IVDA Clinical Indicators: 04/08 Surgical Consult: "Sepsis" 04/14 Cardiology Consult: "Possible sepsis and also history of COPD and asthma." 04/18 Pulmonary Procedure Note: "Pneumonia, ARDS, sepsis." 04/02-04/19 WBC: 9/9.9/13.8/16.9/10.4/8.7/7.6/9.7/10 /17.1/18.1/20.7/16.3/17.6/17.4/16.5/14.7 Lactic acid: 04/04 .8 121 .9 Blood cultures: 04/13 Blood Cx x 2 neg 04/02 1304 Vital signs on admission: Temp 97.4, HR 135, RR 24, B/P 101/60, spo2 88% Room air Other Clinical Indicators: Covid negative x 3, Influenza A&B neg Treatment: 04/16 ID Consult: "Possible component of pneumonia, so far sputum had been negative for a pathogen." Antibiotics: 04/02 x 1 diose: Ceftriaxone 2gm IVPB OT 04/02 PTD IV Vanco 04/02 Zithromax 500 mg IVPB x 1 dose followed by 500 mg PO QD 04/03 Cefepime 2 gm IVPB Q 12 hrs. 04/02 2 L 0.9% NS IVF Bolus 04/18 1L 0.9% NS IVF Bolus 04/05 Levophed Gtt titrate for B/P In your professional opinion, please clarify if these findings signify one of the following conditions, whether the condition is POA, and cause, if known: Condition Sepsis ruled out Sepsis Severe Sepsis Septic Shock Other, please specify Unable to determine Present on Admission Yes No Identify the (suspected) organism Link or clarify if there is associated (due to/with): Organ failure Shock SIRS Criteria (2 or more of the following may indicate SIRS): -Temperature < 96.8F (36C) or > 101.0F (38.3C) -Heart Rate > 90 bpm -Respiratory Rate > 20 breaths/min or PaCO2 < 32 mmHg -White Blood Cell Count > 12,000 or < 4,000 cells/mm3 or > 10% bands -Lactate >2.0 mmol/L (>4.0 is equivalent to septic shock) (Last Revision: August 2017) Patient admitted with pneumonia, patient had fever but leukocytosis could be explained by steroids(for example refer to the infectious disease note from 04/12) and tachypnea could be explained by her bilateral pneumonia and pneumothorax so I not sure if the patient has sepsis. MTDD
--- NOTE | 2020-04-23 13:45 | CDI ---
Documentation Clarification Form Date: 04/23/2020 01:07:07 PM From: Monserrat Swan RN, CCDS Admit Date: 04/02/2020 05:42:00 PM Patient Name: Lu Hoover Visit Number: [id number] Discharge Date: 04/19/2020 06:41:00 PM ATTENTION: The Clinical Documentation Specialists (CDI) and [facility] Coding Staff appreciate your assistance in clarifying documentation. Please respond to the clarification below the line at the bottom and electronically sign. The CDI & [facility] Coding staff will review the response and follow-up if needed. Please note: Queries are made part of the Legal Health Record. If you have any questions, please contact the author of this message via ITS. Dr. Bunch The patient has several documented episodes of low B/P in the v/s and has multiple periods of intermittent Levophed use. Please provide clinical significance if able. Patient history/risk factors: Sepsis, pneumonia, ARDS Clinical Indicators: Vitals: 04/02 1700 HR 134, RR 32, B/P 75/43, Spo2 99% on 1005 NRB 1710 HR 130, RR 32, B/P 87/62, Spo2 99% on 1005 NRB 04/06 2200 RR 34, B/P 88/48, Spo2 99% on 50% MV 2300 B/P 88/52 04/15 1152 HR 70, RR 32, B/P 89/47, spo2 98% on 35 % MV 04/18 0730 HR 111, RR 32m, B/P 76/43, 71/47 0800 70/42 0815 87/55 Treatment: 04/05 -04/15 Levophed Gtt titrate for B/P then re-ordered 04/18 04/02 2L 0.9% NS IVF bolus 04/15 1 U PRBC's transfused 04/18 1L 0.9% NS IVF bolus In your professional opinion, can you please provide further specificity regarding the documented low B/P and treatment? Septic Shock Suspected or known causative organism Any associated organ failure Cardiogenic Shock Cause Hypovolemic Shock Cause Other hypotension, please specify Unable to determine (Last Revision: February 2017) Hypotension is multifactorial, patient has hypernatremia, anemia, infection, and others MTDD
--- NOTE | 2020-04-26 15:54 | CDI ---
Documentation Clarification Form Date: 04/17/2020 04:54:00 PM From: Reny Desai Admit Date: 04/02/2020 05:42:00 PM Patient Name: Lu Hoover Visit Number: [id number] Discharge Date: 04/19/2020 06:41:00 PM ATTENTION: The Clinical Documentation Specialists (CDI) and [facility] Coding Staff appreciate your assistance in clarifying documentation. Please respond to the clarification below the line at the bottom and electronically sign. The CDI & [facility] Coding staff will review the response and follow-up if needed. Please note: Queries are made part of the Legal Health Record. If you have any questions, please contact the author of this message via ITS. Dr. Emerson Sheet Conflicting documentation has been found in the medical record: Moderate Protein Calorie Malnutrition in surgical progress notes 04/16 & 04/17 Severe Protein Calorie Malnutrition is documented in the Critical Care progress notes 04/09 through 04/17 History/Risk Factors: 29-year-old female presents to ED [facility] in [place] for difficulty in breathing came to [place] to see family with worsening symptoms. Medical History CLL in remission, Seizure disorder, asthma, COPD and history of IV drug use. Clinical Indicators: 04/15 through 04/18 Critical Care Progress Note: A 29-year-old female, extremely frail and emaciated, malnourished on mechanical ventilation. BMI 21.3 kg/m 04/05 Dietary consult: [place] Body Weight Estimated protein needs per day 54-91 grams/day; Estimated Fluid Needs per day 1334mls per day; Nutritional Diagnosis: Inadequate energy intake, related to intubation, sedation and NPO 04/14 Peg tube insertion. Treatment: Nutritional consult see above Enteral Nutrition Tube feeding. Monitor blood glucose In your opinion, what is the most clinically appropriate diagnosis for this patient? Severe Protein Calorie Malnutrition Moderate Protein Calorie Malnutrition Other explanation of clinical findings Unable to determine (no explanation for clinical findings) (Last Revision: August 2017) pt documented weight was fluctuating, but twice was documented it is below 42 Kg, which made her underweight . so i agree pt possibly had mild to moderate Protein Calorie malnutrition MTDD
--- NOTE | 2020-04-26 15:59 | CDI ---
Documentation Clarification Form Date: 04/23/2020 12:17:49 PM From: Monserrat Swan RN, CCDS Admit Date: 04/02/2020 05:42:00 PM Patient Name: Lu Hoover Visit Number: [id number] Discharge Date: 04/19/2020 06:41:00 P ATTENTION: The Clinical Documentation Specialists (CDI) and [facility] Coding Staff appreciate your assistance in clarifying documentation. Please respond to the clarification below the line at the bottom and electronically sign. The CDI & [facility] Coding staff will review the response and follow-up if needed. Please note: Queries are made part of the Legal Health Record. If you have any questions, please contact the author of this message via ITS. Dr. Emerson E Sheet A diagnosis of UTI has been documented in the Pulmonary Progress notes 04/18-04/19 History/Risk Factors: Per documentation in the progress notes this patient has an indwelling Ac catheter and UTI Sepsis, pneumonia, ALL in remission, ARDS, severe malnutrition Clinical Indicators: 04/17-04/19: + U/A each day Urine culture: no urine cultures ordered 04/17-04/19 Lab results: WBC 17.4/16.5/14.7, Neutrophils 15/14.7/12.4 Treatment: Iv Vancomycin PTD IV cefepime 2gm IVPB q 12 hrs. In your professional opinion, can you please clarify the etiology of the UTI, if known? Ac catheter related UTI UTI not related to catheter Other condition, please specify Unable to determine If an infective organism is present, please specify cause and effect relationship if applicable. (Last Revision: August 2017) i am not sure if pt had UTI , pt was already on antibiotic per ID team, no fever , no worsening leukocytosis. MTDD
--- NOTE | 2020-04-26 16:02 | CDI ---
Documentation Clarification Form Date: 04/23/2020 12:31:56 PM From: Monserrat Swan RN, CCDS Phone: [phone] Admit Date: 04/02/2020 05:42:00 PM Patient Name: Lu Hoover Visit Number: [id number] Discharge Date: 04/19/2020 06:41:00 PM ATTENTION: The Clinical Documentation Specialists (CDI) and [facility] Coding Staff appreciate your assistance in clarifying documentation. Please respond to the clarification below the line at the bottom and electronically sign. The CDI & [facility] Coding staff will review the response and follow-up if needed. Please note: Queries are made part of the Legal Health Record. If you have any questions, please contact the author of this message via ITS. Dr. Ki Bunch A pressure ulcer was documented in the Nursing assessments and requires documentation by the MD to accurately reflect the Pt SOI/ROM History/Risk Factors: ARDS, Pneumonia, Sepsis, Malnutrition with Peg tube, nicotine dependence, IVDA, bilateral Pneumo's with barotrauma Clinical Indicators: Color photo on chart Dated 04/14/20202100 showing fouzia, open sacral wound with DTI surrounding edges Wound description: 04/13 2000 Nursing assessment: "pressure injury stage 3 with indistinct wound margins, with a small amount of serosanguinous drainage with surrounding maceration 9 cm long x 7 cm wide Location: Coccyx: Treatment: Honey HD sheet and nonadherant pad Elements for accurate and compliant documentation of an ulcer: *The location/laterality of the ulcer *Etiology (decubitus/pressure, diabetic, PVD) *Stage I-IV, Unstageable, Suspected Deep Tissue Injury (To the deepest stage) *If the ulcer was present at admission (POA) or occurred after admission In your professional opinion, can you please clarify the diagnosis, location, laterality and whether present on admission (POA) or hospital acquired: Stage 1 Pressure/Decubitus Ulcer (intact skin, non-blanching redness of local area) Stage 2 Pressure/Decubitus Ulcer (Partial thickness, loss of dermis, pink wound bed) Stage 3 Pressure/Decubitus Ulcer (Full thickness tissue loss) Stage 4 Pressure/Decubitus Ulcer (Full thickness tissue loss with exposed bone, tendon, or muscle. May have slough or eschar present) Unstageable Other condition, please specify Unable to determine Please indicate etiology of pressure ulcer (if known). (Last Revision: February 2017) on further reviewing pt chart , pt had Stage 2 Pressure/Decubitus Ulcer ( see photo ) MTDD
--- NOTE | 2020-04-26 16:04 | CDI ---
Documentation Clarification Form Date: 04/23/2020 12:59:41 PM From: Monserrat Swan RN, CCDS Admit Date: 04/02/2020 05:42:00 PM Patient Name: Lu Hoover Visit Number: [id number] Discharge Date: 04/19/2020 06:41:00 PM ATTENTION: The Clinical Documentation Specialists (CDI) and [facility] Coding Staff appreciate your assistance in clarifying documentation. Please respond to the clarification below the line at the bottom and electronically sign. The CDI & [facility] Coding staff will review the response and follow-up if needed. Please note: Queries are made part of the Legal Health Record. If you have any questions, please contact the author of this message via ITS. Dr. Emerson E Sheet The patient presented with a diagnosis of sepsis and pneumonia from . Please review to accurately reflect SOI ROM, and document if sepsis was POA or occurred during stay. 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/p Chemo, IVDA Clinical Indicators: 04/08 Surgical Consult: "Sepsis" 04/14 Cardiology Consult: "Possible sepsis and also history of COPD and asthma." 04/18 Pulmonary Procedure Note: "Pneumonia, ARDS, sepsis." 04/02-04/19 WBC: 9/9.9/13.8/16.9/10.4/8.7/7.6/9.7/10 /17.1/18.1/20.7/16.3/17.6/17.4/16.5/14.7 Lactic acid: 04/04 .8 121 .9 Blood cultures: 04/13 Blood Cx x 2 neg 04/02 1304 Vital signs on admission: Temp 97.4, HR 135, RR 24, B/P 101/60, spo2 88% Room air Other Clinical Indicators: Covid negative x 3, Influenza A&B neg Treatment: 04/16 ID Consult: "Possible component of pneumonia, so far sputum had been negative for a pathogen." Antibiotics: 04/02 x 1 diose: Ceftriaxone 2gm IVPB OT 04/02 PTD IV Vanco 04/02 Zithromax 500 mg IVPB x 1 dose followed by 500 mg PO QD 04/03 Cefepime 2 gm IVPB Q 12 hrs. 04/02 2 L 0.9% NS IVF Bolus 04/18 1L 0.9% NS IVF Bolus 04/05 Levophed Gtt titrate for B/P In your professional opinion, please clarify if these findings signify one of the following conditions, whether the condition is POA, and cause, if known: Condition Sepsis ruled out Sepsis Severe Sepsis Septic Shock Other, please specify Unable to determine Present on Admission Yes No Identify the (suspected) organism Link or clarify if there is associated (due to/with): Organ failure Shock SIRS Criteria (2 or more of the following may indicate SIRS): -Temperature < 96.8F (36C) or > 101.0F (38.3C) -Heart Rate > 90 bpm -Respiratory Rate > 20 breaths/min or PaCO2 < 32 mmHg -White Blood Cell Count > 12,000 or < 4,000 cells/mm3 or > 10% bands -Lactate >2.0 mmol/L (>4.0 is equivalent to septic shock) (Last Revision: August 2017) although pt has leukocytosis while on steroid. however pt is with Bilateral pneumonia and she was on broad spectrum antibiotic , and sepsis is in the differential diagnosis if we considered her leukocytosis and tackycardia and tachypnea ( also could be caused by pneumonia per se) so agree sepsis is in the differential diagnosis and pt would meet SIRS criteria , so possibly pt had sepsis MTDD
--- NOTE | 2020-04-26 16:06 | CDI ---
Documentation Clarification Form Date: 04/23/2020 01:07:07 PM From: Monserrat Swan RN, CCDS Admit Date: 04/02/2020 05:42:00 PM Patient Name: Lu Hoover Visit Number: [id number] Discharge Date: 04/19/2020 06:41:00 PM ATTENTION: The Clinical Documentation Specialists (CDI) and [facility] Coding Staff appreciate your assistance in clarifying documentation. Please respond to the clarification below the line at the bottom and electronically sign. The CDI & [facility] Coding staff will review the response and follow-up if needed. Please note: Queries are made part of the Legal Health Record. If you have any questions, please contact the author of this message via ITS. Dr. Bunch The patient has several documented episodes of low B/P in the v/s and has multiple periods of intermittent Levophed use. Please provide clinical significance if able. Patient history/risk factors: Sepsis, pneumonia, ARDS Clinical Indicators: Vitals: 04/02 1700 HR 134, RR 32, B/P 75/43, Spo2 99% on 1005 NRB 1710 HR 130, RR 32, B/P 87/62, Spo2 99% on 1005 NRB 04/06 2200 RR 34, B/P 88/48, Spo2 99% on 50% MV 2300 B/P 88/52 04/15 1152 HR 70, RR 32, B/P 89/47, spo2 98% on 35 % MV 04/18 0730 HR 111, RR 32m, B/P 76/43, 71/47 0800 70/42 0815 87/55 Treatment: 04/05 -04/15 Levophed Gtt titrate for B/P then re-ordered 04/18 04/02 2L 0.9% NS IVF bolus 04/15 1 U PRBC's transfused 04/18 1L 0.9% NS IVF bolus In your professional opinion, can you please provide further specificity regarding the documented low B/P and treatment? Septic Shock Suspected or known causative organism Any associated organ failure Cardiogenic Shock Cause Hypovolemic Shock Cause Other hypotension, please specify Unable to determine (Last Revision: February 2017) pt needed pressors at times and in view of her possible sepsis , possibly also pt had Septic Shock MTDD
== END 2020-04-19 18:41 | disposition expired | DRG 4 ==
LOC: EC 13:02 → 3SCARD 17:42 → 2SICU 04-05 06:54
PROVIDERS: ADMIT Internal Medicine; ATTEND Internal Medicine
PROC: 0B9D8ZX Drainage of Right Middle Lung Lobe, Via Natural or Artificial Opening Endoscopic, Diagnostic (ICD-10-PCS; 2020-04-04)
PROC: 5A1955Z Respiratory Ventilation, Greater than 96 Consecutive Hours (ICD-10-PCS; 2020-04-05)
PROC: 0BH17EZ Insertion of Endotracheal Airway into Trachea, Via Natural or Artificial Opening (ICD-10-PCS; 2020-04-05)
PROC: 3E033XZ Introduction of Vasopressor into Peripheral Vein, Percutaneous Approach (ICD-10-PCS; 2020-04-05)
PROC: 5A09357 Assistance with Respiratory Ventilation, Less than 24 Consecutive Hours, Continuous Positive Airway Pressure (ICD-10-PCS; 2020-04-05)
PROC: 0DH67UZ Insertion of Feeding Device into Stomach, Via Natural or Artificial Opening (ICD-10-PCS; 2020-04-05)
PROC: 3E0G76Z Introduction of Nutritional Substance into Upper GI, Via Natural or Artificial Opening (ICD-10-PCS; 2020-04-05)
PROC: 02HV33Z Insertion of Infusion Device into Superior Vena Cava, Percutaneous Approach (ICD-10-PCS; 2020-04-05)
PROC: 03HY32Z Insertion of Monitoring Device into Upper Artery, Percutaneous Approach (ICD-10-PCS; 2020-04-05)
PROC: 4A133B1 Monitoring of Arterial Pressure, Peripheral, Percutaneous Approach (ICD-10-PCS; 2020-04-05)
PROC: 4A133J1 Monitoring of Arterial Pulse, Peripheral, Percutaneous Approach (ICD-10-PCS; 2020-04-05)
PROC: 06HM33Z Insertion of Infusion Device into Right Femoral Vein, Percutaneous Approach (ICD-10-PCS; 2020-04-05)
PROC: 0W9930Z Drainage of Right Pleural Cavity with Drainage Device, Percutaneous Approach (ICD-10-PCS; 2020-04-07)
PROC: 0W9B30Z Drainage of Left Pleural Cavity with Drainage Device, Percutaneous Approach (ICD-10-PCS; 2020-04-09)
PROC: 0DH63UZ Insertion of Feeding Device into Stomach, Percutaneous Approach (ICD-10-PCS; 2020-04-11)
PROC: 0B110F4 Bypass Trachea to Cutaneous with Tracheostomy Device, Open Approach (ICD-10-PCS; principal; 2020-04-11 12:35)
PROC: 0W9930Z Drainage of Right Pleural Cavity with Drainage Device, Percutaneous Approach (ICD-10-PCS; 2020-04-13)
PROC: 30243N1 Transfusion of Nonautologous Red Blood Cells into Central Vein, Percutaneous Approach (ICD-10-PCS; 2020-04-15)
PROC: 02HV33Z Insertion of Infusion Device into Superior Vena Cava, Percutaneous Approach (ICD-10-PCS; 2020-04-16)
PROC: 03HY32Z Insertion of Monitoring Device into Upper Artery, Percutaneous Approach (ICD-10-PCS; 2020-04-19)
PROC: 4A133B1 Monitoring of Arterial Pressure, Peripheral, Percutaneous Approach (ICD-10-PCS; 2020-04-19)
PROC: 4A133J1 Monitoring of Arterial Pulse, Peripheral, Percutaneous Approach (ICD-10-PCS; 2020-04-19)
DX: A41.9 Sepsis, unspecified organism (principal); J18.9 Pneumonia, unspecified organism; J81.0 Acute pulmonary edema; J80 Acute respiratory distress syndrome; R65.21 Severe sepsis with septic shock; E87.3 Alkalosis; E87.0 Hyperosmolality and hypernatremia; J45.901 Unspecified asthma with (acute) exacerbation; C91.01 Acute lymphoblastic leukemia, in remission; J93.9 Pneumothorax, unspecified; J44.1 Chronic obstructive pulmonary disease with (acute) exacerbation; J44.0 Chronic obstructive pulmonary disease with (acute) lower respiratory infection; I47.1 Supraventricular tachycardia; J93.82 Other air leak; T88.6XXA Anaphylactic reaction due to adverse effect of correct drug or medicament properly administered, initial encounter; E44.0 Moderate protein-calorie malnutrition; Z20.828 Contact with and (suspected) exposure to other viral communicable diseases; F15.10 Other stimulant abuse, uncomplicated; Z66 Do not resuscitate; Z51.5 Encounter for palliative care; G40.909 Epilepsy, unspecified, not intractable, without status epilepticus; F11.10 Opioid abuse, uncomplicated; D50.9 Iron deficiency anemia, unspecified; L89.152 Pressure ulcer of sacral region, stage 2; F17.210 Nicotine dependence, cigarettes, uncomplicated; F41.1 Generalized anxiety disorder; R00.1 Bradycardia, unspecified; R53.81 Other malaise; E63.9 Nutritional deficiency, unspecified; T50.8X5A Adverse effect of diagnostic agents, initial encounter; Z92.21 Personal history of antineoplastic chemotherapy; Z86.718 Personal history of other venous thrombosis and embolism; Z95.828 Presence of other vascular implants and grafts; Z91.19 Patient's noncompliance with other medical treatment and regimen; Z91.030 Bee allergy status; Z91.041 Radiographic dye allergy status; Z88.0 Allergy status to penicillin; Z88.8 Allergy status to other drugs, medicaments and biological substances; Z91.018 Allergy to other foods; Z71.3 Dietary counseling and surveillance; Z68.21 Body mass index [BMI] 21.0-21.9, adult
CPT/HCPCS: 31624; 36415; 36600; 43246; 71045; 71046; 71250; 71275; 74176; 80048; 80053; 80202; 81001; 81025; 82150; 82330; 82550; 82553; 82565; 82728; 82803; 82805; 83036; 83540; 83550; 83605; 83615; 83690; 83735; 84100; 84484; 85025; 85379; 85610; 85730; 86140; 86850; 86900; 86901; 86920; 87040; 87070; 87075; 87102; 87116; 87205; 87206; 87252; 87496; 87498; 87502; 87529; 87634; 87635; 87798; 88108; 88305; 93005; 93306; 93308; 94002; 94003; 94640; 94660; 94760; 96361; 96365; 96366; 96367; 96372; 96375; 99291